=== PATIENT | male | born 1945 | race Hispanic/Latino ===

== ENCOUNTER 2016-10-12 13:59 | Inpatient (IN) | payer MEDICARE ==
[2016-10-12 14:00] VITALS: PULSE 75; BMI 22.0
[2016-10-12] MEDS ORDERED: Albuterol-Ipratrop 3 mg / 0.5 (3 ml) UD INH STA (14:17)
[2016-10-12 14:29] LABS: ABG ALLEN TEST YES; ARTERIAL BLOOD GAS HCO3 22.7 mmol/L (21-28); ARTERIAL BLOOD GAS PH 7.16 (7.35-7.45); ARTERIAL BLOOD GAS PO2 59 mm/Hg (80-100)
[2016-10-12] MEDS ORDERED: Ciprofloxacin 400mg/200ml D5W 200 ML IVPB STA (14:29)
[2016-10-12] MEDS ORDERED: Piperacillin/Tazobact 3.375 GM in Sodium Chloride 0.9% 100 ML IVPB STA (14:29)
[2016-10-12 14:37] LABS: BASO # 0.1 K/uL (0.0-0.2); BASO % 0.3 % (0.0-2.0); HEMATOCRIT 35.2 % (35.0-51.0); LYMPH # 0.8 K/uL (1.0-4.3); LYMPH % 4.3 % (20.0-40.0); MEAN CORPUSCULAR HEMOGLOBIN 29.3 pg (27.0-31.0); MEAN CORPUSCULAR HGB CONC 30.9 g/dL (33.0-37.0); MEAN PLATELET VOLUME 8.6 fl (7.2-11.7); MONO # 0.4 K/uL (0.0-0.8); NEUT # 16.7 K/uL (1.8-7.0); NEUT % 93.4 % (50.0-75.0); PLATELET COUNT 323 K/uL (130-400); RED CELL DISTRIBUTION WIDTH 17.9 % (11.5-14.5); WHITE BLOOD COUNT 17.9 K/uL (4.8-10.8)
[2016-10-12] MEDS ORDERED: Piperacillin/Tazobact 3.375 gm Inj IVPB ONE (14:42)
[2016-10-12] MEDS ORDERED: Vancomycin 1 g Inj ONE (14:42)
[2016-10-12 14:45] LABS: ALB/GLOB RATIO 0.9 (1.0-2.1); ALKALINE PHOSPHATASE 150 U/L (38-126); ALT/SGPT 42 U/L (21-72); AST/SGOT 51 U/L (17-59); BILIRUBIN,TOTAL 0.5 mg/dl (0.2-1.3); BLOOD UREA NITROGEN 41 mg/dl (9-20); CARBON DIOXIDE 26 mmol/L (22-30); CHLORIDE 105 mmol/L (98-107); GFR AFRICAN-AMERICAN > 60; GLUCOSE,RANDOM 123 mg/dL (75-110); MAGNESIUM 1.9 MG/DL (1.6-2.3); POTASSIUM 4.4 MMOL/L (3.6-5.0); SODIUM 143 mmol/l (132-148); TOTAL PROTEIN 6.9 G/DL (6.3-8.2)
--- NOTE | 2016-10-12 14:47 | ED PDOC ---
HPI: SOB/CHF/COPD <Mackenzie Mcclendon - Last Filed: 10/12/16 16:26> Chief Complaint (Provider): Respiratory distress History Per: EMS, Family History/Exam Limitations: no limitations Onset/Duration Of Symptoms: Hrs Current Symptoms Are (Timing): Still Present Severity: Severe Associated Symptoms: Fever Additional History Per: Family <Jose Cervantes - Last Filed: 10/12/16 17:15> Time Seen by Provider: 10/12/16 14:09 Chief Complaint (Nursing): Shortness Of Breath Additional Complaint(s): The pt is a 71yo male with PMHx of CHF, COPD and pneumonia, [facility] the ED from his [facility] for evaluation of respiratory distress. Pt is accompanied at bedside by his son who is the primary historian. Son reports pt has been at the [facility] since June 2016. Son reports the pt had pneumonia in the past and was admitted in this facility for care. Son reports the patient has been doing fairly well and was "okay"yesterday. He reports vitising the pt today for lunch when he noticed the pt was a little altered and was breathing heavily. He then called the ED to inform the pt would be brought here for evaluation. En route to the ED, the pt had O2 saturation of 82% and was given 2 trials of Duoneb after which his O2 levels juliet to 90%. Pt currently is responsive but lethargic, he is able to follow simple commands. Of note, pt has a feeding tube and has a history of foot infection for which he has been following up with Podiatry. At present, son offers no additional complaints on behalf of the pt. PMD: Dr. Smith (Jose Cervantes) Past Medical History <Mackenzie Mcclendon - Last Filed: 10/12/16 16:26> Reviewed: Historical Data, Nursing Documentation, Vital Signs - Medical History PMH: Anemia, Asthma, Atrial Fibrillation, Benign Prostatic Hyperplasia, Bronchitis, CAD, Cardia Arrhythmia, CHF, COPD, Diabetes (type II), Diverticulitis, Emphysema, HTN, Hypercholesterolemia, Peripheral Edema, Pneumonia Denies: Arthritis, HIV, Hypothyroidism, Chronic Kidney Disease, Rheumatoid Arthritis - Surgical History Surgical History: CABG (1994), Coronary Stent (2000), Hernia Repair () - Family History Family History: States: Unknown Family Hx - Living Arrangements Living Arrangements: [facility] - Immunization History Hx Tetanus Toxoid Vaccination: No Hx Influenza Vaccination: No Hx Pneumococcal Vaccination: No <Jose Cervantes - Last Filed: 10/12/16 17:15> Vital Signs: Last Vital Signs Temp 100.7 F H 10/12/16 14:45 Pulse 101 H 10/12/16 16:30 Resp 12 10/12/16 16:30 BP 113/69 10/12/16 16:30 Pulse Ox 92 L 10/12/16 15:53 - Home Medications Home Medications: Ambulatory Orders Medication Instructions Recorded Fluticasone Propionate [Flonase] 2 spr JAKUB DAILY PRN #0 bottle 03/03/16 Tiotropium [Spiriva] 18 mcg IH DAILY #0 cap 03/03/16 Gabapentin [Neurontin] 300 mg PO TID 07/04/16 Amiodarone [Cordarone] 200 mg PO DAILY tab 09/05/16 Aspirin [Aspirin Chewable] 81 mg PEG DAILY chew 09/05/16 Ipratropium 0.02% [Atrovent] 0.5 mg IH QID #90 neb 09/05/16 Levalbuterol HCl [Xopenex] 0.63 mg IH QID #90 vial.neb 09/05/16 Metoprolol Tartrate [Lopressor] 12.5 mg PO Q12 tab 09/05/16 traMADol [Ultram] 50 mg GT Q6 PRN #0 tab 09/05/16 Acetaminophen [Tylenol 325mg tab] 650 mg PO Q4H PRN 09/12/16 Montelukast [Singulair] 10 mg PO HS 09/12/16 Sodium Polystyrene Sulfonate 60 ml PO MWF 09/12/16 [Kayexalate] - Allergies Allergies/Adverse Reactions: Allergies Allergy/AdvReac Type Severity Reaction Status Date / Time gemfibrozil [From Lopid] Allergy RASH Verified 10/12/16 14:03 morphine Allergy SHORTNESS Verified 10/12/16 14:03 OF BREATH Review of Systems ROS Statement: Except As Marked, All Systems Reviewed And Found Negative Constitutional: Positive for: Fever Respiratory: Positive for: Shortness of Breath <Jose Cervantes - Last Filed: 10/12/16 17:15> Physical Exam - Reviewed Nursing Documentation Reviewed: Yes Vital Signs Reviewed: Yes - Physical Exam Appears: Positive for: Uncomfortable, In Acute Distress (respiratory ) Head Exam: Positive for: ATRAUMATIC, NORMAL INSPECTION, NORMOCEPHALIC Skin: Positive for: Normal Color Eye Exam: Positive for: Normal appearance Neck: Positive for: Normal Cardiovascular/Chest: Positive for: Tachycardia. Negative for: Murmur Respiratory: Positive for: Decreased Breath Sounds (bilateral ), Accessory Muscle Use, Rales (diffuse), Rhonchi (diffuse), Respiratory Distress (moderate ) , Other (retractions and shallow breathing noted) Gastrointestinal/Abdominal: Positive for: Normal Exam, Soft, Other (peg tube in place ). Negative for: Tenderness Male Genital Exam: Positive for: normal genitalia Back: Positive for: Other (redness to sacrum noted, no ulceration) Extremity: Positive for: Normal ROM, Capillary Refill (normal ), Other ( bandages to both feet noted). Negative for: Tenderness Neurologic/Psych: Positive for: Alert (lethargic, can perform simple task - squeeze hand, open eyes ) <Jose Cervantes A - Last Filed: 10/12/16 17:15> - Laboratory Results Result Diagrams: 10/12/16 14:26 10/12/16 14:26 <Mackenzie Mcclendon - Last Filed: 10/12/16 16:26> - Laboratory Results Result Diagrams: 10/12/16 14:26 10/12/16 14:26 - ECG ECG: Positive for: Interpreted By Me, Viewed By Me ECG Rhythm: Positive for: Sinus Tachycardia (113), Nonspecific Changes Interpretation Of Abn EKG: LVH O2 Sat by Pulse Oximetry: 92 Pulse Ox Interpretation: Abnormal - Radiology X-Ray: Interpreted by Me X-Ray Interpretation: Infiltrates (left ), Other (congestion consistent with HF) - Critical Care Total Time (In Min): 60 Documented Critical Care: Time excludes all time spent performint seperately billable procedures <Jose Cervantes - Last Filed: 10/12/16 17:15> Nebulizer Treatments/Peak Flow - Duonebs Number of Bronchodilator Doses given?: 2 - Steroid Treatment Steroid: IV - Clinical Response Clinical Response: Unchanged <Jose Cervantes - Last Filed: 03/26/17 17:15> Medical Decision Making <Mackenzie Mcclendon - Last Filed: 10/12/16 16:26> <Jose Cervantes - Last Filed: 10/12/16 17:15> Medical Decision Making: Time: 1409 Impression: Respiratory distress r/o CHF Plan: -- Stat ABG done, CO2 levels of 77, pH of 7.16, lactic acid levels of 1.3. Pt has a temperature of 100.7 degrees. CXR reviewed- Lasix 80 IV fully ordered, pt placed on BIPAP. Started pt on Zosyn , vanco, and cipro for health care acquired pneumonia Dr. Mcclendon at bedside for evaluation, agrees with current plan. Labs reviewed with elevated WBC count, BNP 23K, potassium normal, trop negative , LA wnl 1540 Pt still struggling to breathe, decision was made for intubation. Pt given 20mg IV of Etomidate, intubated with 7.5 ET tube, 23 at the lip. XR ordered for confirmation. Propofol drip started, soft restraints placed. Scribe Attestation: Documented by Caroline Molina acting as a scribe for JOSELUIS Lopez Provider Scribe Attestation: All medical record entries made by the Scribe were at my direction and personally dictated by me. I have reviewed the chart and agree that the record accurately reflects my personal performance of the history, physical exam, medical decision making, and the department course for this patient. I have also personally directed, reviewed, and agree with the discharge instructions and disposition. Case was discussed with Dr. Dial who saw patient at bedside case discussed with Dr. Armstrong ICU, saw patient at time of admission Case discussed with Dr. Stephens, he also spoke with Dr. Armstrong at time of admission CXR: ET tube above jung good position repeat ABG- PH 7.32; CO2 47; LA 1.7; K 4.2 (Jose Cervantes) Disposition <Mackenzie Mcclendon - Last Filed: 10/12/16 16:26> - Patient ED Disposition Is Patient to be Admitted: Yes Counseled Patient/Family Regarding: Studies Performed, Diagnosis - Disposition Disposition Time: 15:50 <Jose Cervantes - Last Filed: 10/12/16 17:15> - Clinical Impression Clinical Impression: CHF (congestive heart failure), Pneumonia, COPD (chronic obstructive pulmonary disease), Respiratory failure with hypercapnia, Sepsis - Disposition Condition: CRITICAL Additional Comments <Mackenzie Mcclendon A - Last Filed: 10/12/16 16:26> <Jose Cervantes A - Last Filed: 10/12/16 17:15> - Additional Comments Additional Comments: Patient is here with acute respiratory failure that required BiPAP and intubation. Intubation performed by me, see procedure note. Critical care 60 minutes. PMD Kirby is primary for admission. Admitted to ICU under Dr. Armstrong. Intubation performed by me. See procedure note. (Mackenzie Mcclendon) PROCEDURES - Intubation Intubation Required: Yes Time Out Performed: Yes Sedative: Etomidate Paralytic: Succinylholine Laryngoscope: Fiber Optic Video Scope ET Tube Size: 7.5 ET Tube Uncuffed: No ET Tube Secured at Depth: 23 ET Tube Secured Locarion: Teeth ET Tube Placement Confirmation: Visualized Passing Through Cords, Breath Sounds Equal Bilaterally, No Breath Sounds Over Epigastrum, Confirmation w/Capnometry Patient Tolorated Procedure: Well Procedure Complications: None <Mackenzie Mcclendon A - Last Filed: 10/12/16 16:26>
[2016-10-12 14:53] LABS: PARTIAL THROMBOPLASTIN TIME 31.1 SECONDS (23.3-32.5)
[2016-10-12] MEDS ORDERED: Etomidate 20 mg/10ml Inj IV ONE ×2 (15:20→15:49)
[2016-10-12] MEDS ORDERED: Succinylcholine 200 mg/10 ml Inj IV ONE ×2 (15:23→15:49)
[2016-10-12] MEDS ORDERED: Propofol 10 mg/ml Inj (20 ML) ONE (15:26)
[2016-10-12 16:01] LABS: RBC URINE 1 /hpf (0-3); URINE BILIRUBIN NEGATIVE (NEGATIVE); URINE BLOOD NEGATIVE (NEGATIVE); URINE COLOR YELLOW (YELLOW); URINE GLUCOSE (UA) NEG (Normal); URINE KETONE NEGATIVE (NEGATIVE); URINE PROTEIN 30 mg/dL (NEGATIVE); URINE UROBILINOGEN 0.2-1.0 mg/dL (0.2-1.0); WBC URINE 1 /hpf (0-5)
[2016-10-12 16:16] LABS: URINE LEUKOCYTE ESTERASE NEGATIVE Leu/uL (Negative)
[2016-10-12 16:29] LABS: ABG ALLEN TEST YES; ABG MECHANICAL RATE 12; ARTERIAL BLOOD GAS HCO3 23.3 mmol/L (21-28); ARTERIAL BLOOD GAS MODE PRVC/AC; ARTERIAL BLOOD GAS O2 CAPACITY 13.4 mL/dL (16-24); ARTERIAL BLOOD GAS PH 7.32 (7.35-7.45); ARTERIAL BLOOD GAS PO2 58 mm/Hg (80-100); ARTERIAL BLOOD HGB O2 SAT 91.4 % (95.0-98.0); CARBOXYHEMOGLOBIN 3.3 % (0.5-1.5); HHB 3.1 % (0.0-5.0); METHEMOGLOBIN 2.2 % (0.0-3.0)
--- NOTE | 2016-10-12 16:44 | CP.CCUPN ---
CCU Subjective - Physician Review Subjective (Free Text): TRAIN ENGINEER PROGRESS NOTE Patient examined, interim events reviewed: Discussed with Pop WALKER, and further history obtained from Son at the bedside- 71M , well known to ICU team from previous long course in ICU for Post-Lucretia Arrest mgmt, Ventilatory failure, Cardiomyopathy, and generalized debilitation. He was transferred from [place] today after exhibiting sleepiness and AMS beginning last evening according to son, which worsened this AM with excessive sleepiness while sitting up in bed, vomited x 1, denied any CP, headaches or focal weakness , but also was progressively dyspneic and tachypneic despite multiple neb treatments given in the NH, exhibited audible rhonchi and transferred to ER where he was subsequently placed on BiPAP and advanced to MV support for increased work of breathing. Presently sedated on Propofol 5 mcg/kg/min, lifting head off the bed at times, not following commands, moving all extremities spontaneously. Son states he had been fed via PEG and eating PO as well. Able to self ambulate approx 100feet, using the urinal and was engaging in normal conversations prior to changes in mental status. Breathing 20 in AC 12 , TV 500ml, PEEP 5 and 60% oxygen with 95% SPO2, PAP 22, Ve= 12.6, afebrile, BRIANA 150/80, HR 88. Polanco placed with approx 300 ml clear light yellow urine after Lasix 40mg IVP. Allergies; Morphine, Gemfibrozil PMH: COPD, Cardiomyopathy with 30% EF, Left PTX, CAD/ AWMI with CABG, Cardiac Arrest /VT/ Paroxysmal A Fib, E.Coli Pneumonia last admission into ICU. [place] Meds: Gabapentin, Singulair, albuterol/Atrovent, Spiriva, Flonase, Cordarone , Lopressor ASA ROS: All pertinent Nursing notes and all other 10+ systems reviewed: patient unable to answer questions, otherwise as above as answered by son. PMSFH: No other new pertinent information relative to current medical problems noted. No other distress noted: EXAM- HEENT: no icterus, pupils midline, equal and reactive, no nystagmus, NECK: no visible JVD, supple, carotids equal upstroke bilat/no bruits CHEST: decreased BS bases, no wheezes audible. HEART: regular, distant, S1S2, no murmur audible, no rubs. ABD: soft, flat, PEG intact, no increased distention, no focal tenderness, no HSM. BS hypoactive. EXT: trace LE edema, no peripheral/ digital cyanosis, no calf tenderness or palpable cords, distal pulses intact and symmetrical NEURO: +tone, no gross focal deficits SKIN: no rashes, no eccyhmosis, bilateral heel ulcers, sacral area unable to be assessed at this time. LABS: 7.16/77/59, Lactate = 1.3 WBC= 17.9 HGB= 10.9 PLTs = 323K Coags; PT/INR= 12.2/1.17; PTT= 31.1 Na= 143 K= 4.4 HCO3= 26 BUN/Cr= 41/1.3 BS= 123 Alk Phos =150 Trop #1 negative CXR: increased bilateral and bibasilar interstitial marking as compared to film. No PTX. EKG: pending Assessment: 1. Acute Hypercapneic and Hypoxemic resp failure 2 CHF, r/o RLL Pneumonia (? Aspiration event post emesis this AM) 2. r/o Acute / SubAcute OR 3. Azotemia / Dehydration, r/o CKD II-III 4. Chronic disease Anemia 5. Paroxysmal A fib / Cardiomyopathy 6. COPD PLAN: 1. MV support, try decreasing FiO2, repeat ABG. No wheezing now, steroid bolus given in ER, will continue with DuoNebs for now. 2. Sputum Cx, blood cx, empiric abx coverage started with Zosyn/ Vanco/ Cipro. Check Influenza A/B 3. Serial Trops. 4. Sedation Vacation to assess for any need for CT Brain if mental status does not improve after hypercapnia resolves or improves. 5. Lasix prn 6. PEG Feeds 7. No Advance Directives; remains Full Code status. 8. Son requests admission under Dr. Smith and evals by Kat Monahan.
--- NOTE | 2016-10-12 18:29 | CP.PCM.PN ---
Subjective - Date & Time of Evaluation Date of Evaluation: 10/12/16 Time of Evaluation: 22:22 - Subjective Subjective: 71 yo admitted from [place] in acute respiratory distress. Pt intubated in the ER Pt has a hx of COPD Heart dx was recently hospitalized for prolonged stay in the ICU (s/p defibrillation for V-fib x 2) Objective - Vital Signs/Intake and Output Vital Signs (last 24 hours): Temp Pulse Resp BP Pulse Ox 100.7 F H 101 H 12 113/69 92 L 10/12/16 14:45 10/12/16 17:11 10/12/16 17:11 10/12/16 17:11 10/12/16 17:15 - Medications Medications: Current Medications Albuterol/Ipratropium (Duoneb 3 Mg/0.5 Mg (3 Ml) Ud) 3 ml INH RQID [facility] Amiodarone HCl (Cordarone) 200 mg PO DAILY [facility] Aspirin (Aspirin Chewable) 81 mg PEG DAILY [facility] Enoxaparin Sodium (Lovenox) 40 mg SC DAILY [facility] PRN Reason: Protocol Furosemide (Lasix) 40 mg IV DAILY [facility] Stop: 10/13/16 09:01 Propofol (Diprivan) 100 mls @ 1.851 mls/hr IV .Q24H [facility]; 5 MCG/KG/MIN PRN Reason: Protocol Stop: 10/13/16 16:01 Last Admin: 10/12/16 15:45 Dose: 1.851 mls/hr Ciprofloxacin (Cipro 400mg/200ml Dsw) 200 mls @ 200 mls/hr IVPB Q12 [facility] Vancomycin HCl 500 mg/ Sodium (Chloride) 100 mls @ 100 mls/hr IVPB Q12 [facility] Piperacillin Sod/Tazobactam (Sod 2.25 gm/ Sodium Chloride) 100 mls @ 100 mls/ hr IVPB Q6 [facility] Metoprolol Tartrate (Lopressor) 12.5 mg GT Q12 [facility] Pantoprazole Sodium (Protonix Inj) 40 mg IVP DAILY [facility] - Labs Labs: PT 12.2 SECONDS (9.6-11.2) H 10/12/16 14:26 INR 1.17 (0.92-1.08) H 10/12/16 14:26 APTT 31.1 SECONDS (23.3-32.5) 03/26/17 14:26 - Respiratory Exam Respiratory Exam: Respiratory Distress - Cardiovascular Exam Cardiovascular Exam: Irregular Rhythm - GI/Abdominal Exam GI & Abdominal Exam: Normal Bowel Sounds Assessment and Plan - Assessment and Plan (Free Text) Assessment: Acute Respiratory Failure Aspiration?? COPD S/P Klebsiella RLL Pneumonia? S/P L pneumothorax Intubated ABX ICU Pulmonary S/P V-fib/ V-tach 2 to pulmonary dx A-fib CAD S/P CABG Amiodorone Cardiology Hyperkalemia etiol ?? s/p SMITA/ CKD Nephrology Cortisol level ?? Chronic chest wall pain Hx Dec oral intake swallowing?? PEG Jevity and oral feedings s/p + C-diff + Ag -toxin
[2016-10-12 19:01] LABS: ABG ALLEN TEST YES; ABG MECHANICAL RATE 12; ARTERIAL BLOOD GAS HCO3 23.5 mmol/L (21-28); ARTERIAL BLOOD GAS MODE A/C; ARTERIAL BLOOD GAS O2 CAPACITY 12.9 mL/dL (16-24); ARTERIAL BLOOD GAS O2 CONTENT 12.6 ML/dL (15-23); ARTERIAL BLOOD GAS PH 7.38 (7.35-7.45); ARTERIAL BLOOD GAS PO2 75 mm/Hg (80-100); ARTERIAL BLOOD HGB O2 SAT 94.9 % (95.0-98.0); ATERIAL BLOOD GAS PEEP 5; CARBOXYHEMOGLOBIN 1.8 % (0.5-1.5); HHB 2.3 % (0.0-5.0); METHEMOGLOBIN 0.9 % (0.0-3.0)
[2016-10-12] MEDS: Albuterol-Ipratrop 3 mg / 0.5 (3 ml) UD INH SCH (19:19)
[2016-10-12 21:02] LABS: TOTAL CELLS COUNTED 100
[2016-10-12 21:08] LABS: EOSINOPHIL 1 % (0-7); NEUTROPHIL 70 % (42-75)
[2016-10-12] MEDS: Ciprofloxacin 400mg/200ml D5W 200 ML IVPB SCH (22:39)
[2016-10-13] MEDS: Enoxaparin 40 mg Syringe SC SCH ×2 (00:19→08:44)
[2016-10-13 05:03] LABS: ABG ALLEN TEST YES; ABG MECHANICAL RATE 12; ARTERIAL BLOOD GAS HCO3 24.1 mmol/L (21-28); ARTERIAL BLOOD GAS MODE A/C; ARTERIAL BLOOD GAS PO2 122 mm/Hg (80-100); ATERIAL BLOOD GAS PEEP 5
[2016-10-13 05:47] LABS: BASO % 0.1 % (0.0-2.0); HEMATOCRIT 30.3 % (35.0-51.0); LYMPH # 0.6 K/uL (1.0-4.3); MEAN CELL VOLUME 92.8 fl (80.0-94.0); MEAN CORPUSCULAR HGB CONC 31.2 g/dL (33.0-37.0); MEAN PLATELET VOLUME 9.3 fl (7.2-11.7); MONO # 0.8 K/uL (0.0-0.8); MONO % 2.9 % (0.0-10.0); NEUT # 27.4 K/uL (1.8-7.0); RED CELL DISTRIBUTION WIDTH 18.2 % (11.5-14.5); WHITE BLOOD COUNT 28.8 K/uL (4.8-10.8)
[2016-10-13 05:54] LABS: ALB/GLOB RATIO 0.9 (1.0-2.1); BILIRUBIN,TOTAL 0.7 mg/dl (0.2-1.3); CALCIUM 8.7 mg/dL (8.4-10.2); POTASSIUM 4.5 MMOL/L (3.6-5.0)
[2016-10-13] MEDS: Albuterol-Ipratrop 3 mg / 0.5 (3 ml) UD INH SCH ×2 (08:58→19:15)
--- NOTE | 2016-10-13 09:22 | RAD ---
HISTORY: intubated COMPARISON: 10/12/2016 FINDINGS: The endotracheal tube terminates 3.8 cm proximal to the jung. LUNGS: There is interval worsening of patchy airspace disease in the left lung and persistent patchy airspace disease in the right lower lobe. PLEURA: No significant pleural effusion identified, no pneumothorax apparent. CARDIOVASCULAR: The cardiomediastinal silhouette is stable. Status post CABG. OSSEOUS STRUCTURES: Within normal limits for the patient's age. VISUALIZED UPPER ABDOMEN: Normal. OTHER FINDINGS: None. IMPRESSION: Worsening multifocal left upper lobe pneumonia and persistent left lower lobe and right lower lobe pneumonia
--- NOTE | 2016-10-13 09:47 | CP.PCM.CON ---
History of Present Illness - History of Present Illness History of Present Illness: This 71 year old male was recently discharged after a prolonged hospital stay because pf pneumonia with sepsis and cardiac arrhythmia. He had been in [facility] and apparently doing well. There was a change in mental status and shortness of breath which prompted transfer to the ER where he was found to have pneumonia and hypercapnic ventilatory failure. An initial attempt to use NIPPV failed and he was orally intubated and placed on mechanical ventilation. He had a PEG tube inserted on the June admission which is still in use, and he has been eating PO as well. During that June admission he also developed a parapneumonic pleual effusion which was tapped. He had been followed as an outpatient for the last 2-3 years because of a pulmonary nodule in the left lower lobe and a nodular infiltrate in the medial basal segment of the left lower lobe which occurred secondary to an abdominal surgical procedure. He does have a long and complicated past medical history which includes coronary artery bypass grafting in 1994 also had percutaneous transluminal coronary angioplasty in 2000 and a repeat angiogram in 2001. He has long-standing history of diabetes mellitus as well as hypertension and iron deficiency anemia which was thought to be related to prior subtotal gastrectomy for peptic ulcer disease. He also has a history of hyperlipidemia as well as chronic obstructive pulmonary disease. Past Patient History - Infectious Disease Hx of Infectious Diseases: None - Tetanus Immunizations Tetanus Immunization: Unknown - Past Medical History & Family History Past Medical History?: Yes - Past Social History Smoking Status: Former Smoker Chewing Tobacco Use: No Cigar Use: No Alcohol: None Drugs: Denies Home Situation {Lives}: Alone - CARDIAC Hx Atrial Fibrillation: Yes Hx Cardia Arrhythmia: Yes Hx Congestive Heart Failure: Yes Hx Hypercholesterolemia: Yes Hx Hypertension: Yes Hx Peripheral Edema: Yes - PULMONARY Hx Asthma: Yes Hx Bronchitis: Yes Hx Chronic Obstructive Pulmonary Disease (COPD): Yes Hx Emphysema: Yes Hx Pneumonia: Yes - NEUROLOGICAL Hx Neurological Disorder: No - HEENT Hx Cataracts: Yes (right eye) - RENAL Hx Chronic Kidney Disease: No - ENDOCRINE/METABOLIC Hx Diabetes Mellitus Type 2: Yes Hx Hypothyroidism: No - HEMATOLOGICAL/ONCOLOGICAL Hx Anemia: Yes Hx Human Immunodeficiency Virus (HIV): No - INTEGUMENTARY Hx Psoriasis: Yes - MUSCULOSKELETAL/RHEUMATOLOGICAL Hx Falls: No - GASTROINTESTINAL Hx Diverticulitis: Yes - GENITOURINARY/GYNECOLOGICAL Hx Prostate Problems: Yes - PSYCHIATRIC Hx Substance Use: No - SURGICAL HISTORY Hx Coronary Artery Bypass Graft: Yes (1994) Hx Coronary Stent: Yes (2000) Other/Comment: SUB-TOTAL GASTRECTOMY FOR PUD WITH VENTRAL HERNIA REPAIRS SUBSEQUENTLY - ANESTHESIA Hx Anesthesia: Yes Hx Anesthesia Reactions: No Hx Malignant Hyperthermia: No Meds Allergies/Adverse Reactions: Allergies Allergy/AdvReac Type Severity Reaction Status Date / Time gemfibrozil [From Lopid] Allergy RASH Verified 10/12/16 14:03 morphine Allergy SHORTNESS Verified 10/12/16 14:03 OF BREATH - Medications Medications: Current Medications Albuterol/Ipratropium (Duoneb 3 Mg/0.5 Mg (3 Ml) Ud) 3 ml INH RQ6 [facility] Amiodarone HCl (Cordarone) 200 mg PO DAILY [facility] Last Admin: 10/12/16 19:00 Dose: Not Given Aspirin (Aspirin Chewable) 81 mg PEG DAILY [facility] Last Admin: 10/13/16 08:45 Dose: 81 mg Enoxaparin Sodium (Lovenox) 40 mg SC DAILY [facility] PRN Reason: Protocol Last Admin: 10/13/16 08:44 Dose: 40 mg Propofol (Diprivan) 100 mls @ 1.851 mls/hr IV .Q24H [facility]; 5 MCG/KG/MIN PRN Reason: Protocol Stop: 10/13/16 16:01 Last Titration: 10/13/16 06:50 Dose: 5 mcg/kg/min Ciprofloxacin (Cipro 400mg/200ml Dsw) 200 mls @ 200 mls/hr IVPB Q12 [facility] Last Admin: 10/12/16 22:39 Dose: 200 mls/hr Vancomycin HCl 500 mg/ Sodium (Chloride) 100 mls @ 100 mls/hr IVPB Q12 [facility] Last Admin: 10/13/16 08:46 Dose: 100 mls/hr Piperacillin Sod/Tazobactam (Sod 2.25 gm/ Sodium Chloride) 100 mls @ 100 mls/ hr IVPB Q6 [facility] Last Admin: 10/13/16 03:52 Dose: 100 mls/hr Methylprednisolone 30 mg/ (Sodium Chloride) 50 mls @ 100 mls/hr IVPB Q8 [facility] Metoprolol Tartrate (Lopressor) 12.5 mg GT Q12 [facility] Last Admin: 10/12/16 19:00 Dose: Not Given Pantoprazole Sodium (Protonix Inj) 40 mg IVP DAILY [facility] Last Admin: 10/13/16 08:44 Dose: 40 mg Physical Exam - Additional Findings Additional findings: Chronically ill appearing male, orally intubated and mechanically ventilated, sedated. No cyanosis or dependant edema. No palpable lymphadenopathy. Conjunctivae pink and non-icteric. Nasal passages patent w/o bleeding or exudate. Neck is supple and trachea midline, no visible JVD. No dullness on percussion of the anterior chest wall. No subcutaneous emphysema palpated. Breath sounds are present bilaterally, diminished. Coarse sonorous rhonchi are heard bilaterally in lower lobes. Prolonged E phase with few medium wheezes bilaterally. Medium rales present in dependant zones of both lower lobes. PEG tube in place, abdomen is soft. Results - Vital Signs Recent Vital Signs: Last Vital Signs Temp 97.8 F 10/13/16 08:00 Pulse 86 10/13/16 09:00 Resp 26 H 10/13/16 09:00 BP 100/53 L 10/13/16 09:00 Pulse Ox 100 10/13/16 09:00 - Labs Result Diagrams: 10/14/16 04:35 10/14/16 04:35 Labs: Laboratory Results - last 24 hr 10/12/16 10/12/16 10/12/16 16:28 18:54 19:00 WBC RBC Hgb Hct MCV MCH MCHC RDW Plt Count MPV Neut % (Auto) Lymph % (Auto) [place] % (Auto) Eos % (Auto) Baso % (Auto) Neut # Lymph # [place] # Eos # Baso # pCO2 47 H 39 pO2 58 L 75 L HCO3 23.3 23.5 ABG pH 7.32 L 7.38 ABG Total CO2 25.6 24.3 ABG O2 Saturation 96.7 97.6 ABG O2 Content 13.0 L 12.6 L ABG Base Excess -2.0 -1.8 ABG Hemoglobin 10.1 L 9.4 L ABG Carboxyhemoglobin 3.3 H 1.8 H POC ABG HHb (Measured) 3.1 2.3 ABG Methemoglobin 2.2 0.9 ABG O2 Capacity 13.4 L 12.9 L Emmanuel Test Yes Yes ABG Potassium A-a O2 Difference 311.0 304.0 Hgb O2 Saturation 91.4 L 94.9 L Glucose Lactate Vent Mode Prvc/ac A/c Mechanical Rate 12 12 FiO2 60.0 60.0 Tidal Volume 500 450 PEEP 5 Sodium Potassium Chloride Carbon Dioxide Anion Gap BUN Creatinine Est GFR ( Amer) Est GFR (Non-Af Amer) POC Glucose (mg/dL) Random Glucose Lactic Acid Calcium Total Bilirubin AST ALT Alkaline Phosphatase Troponin I 0.0680 Total Protein Albumin Globulin Albumin/Globulin Ratio Arterial Blood Potassium Influenza Typ A,B (EIA) 10/12/16 10/13/16 10/13/16 19:04 01:00 04:40 WBC 28.8 H D RBC 3.26 L Hgb 9.5 L Hct 30.3 L MCV 92.8 D MCH 29.0 MCHC 31.2 L RDW 18.2 H Plt Count 222 D MPV 9.3 Neut % (Auto) 95.0 H Lymph % (Auto) 2.0 L [place] % (Auto) 2.9 Eos % (Auto) 0.0 Baso % (Auto) 0.1 Neut # 27.4 H Lymph # 0.6 L [place] # 0.8 Eos # 0.0 Baso # 0.0 pCO2 pO2 HCO3 ABG pH ABG Total CO2 ABG O2 Saturation ABG O2 Content ABG Base Excess ABG Hemoglobin ABG Carboxyhemoglobin POC ABG HHb (Measured) ABG Methemoglobin ABG O2 Capacity Emmanuel Test ABG Potassium A-a O2 Difference Hgb O2 Saturation Glucose Lactate Vent Mode Mechanical Rate FiO2 Tidal Volume PEEP Sodium 143 Potassium 4.5 Chloride 104 Carbon Dioxide 21 L Anion Gap 23 H BUN 50 H Creatinine 1.6 H Est GFR ( Amer) 52 Est GFR (Non-Af Amer) 43 POC Glucose (mg/dL) Random Glucose 179 H Lactic Acid 2.0 Calcium 8.7 Total Bilirubin 0.7 AST 32 ALT 34 Alkaline Phosphatase 92 Troponin I 0.0880 Total Protein 6.0 L Albumin 2.8 L Globulin 3.2 Albumin/Globulin Ratio 0.9 L Arterial Blood Potassium Influenza Typ A,B (EIA) Negative for flu a/b 10/13/16 10/13/16 05:00 06:21 WBC RBC Hgb Hct MCV MCH MCHC RDW Plt Count MPV Neut % (Auto) Lymph % (Auto) [place] % (Auto) Eos % (Auto) Baso % (Auto) Neut # Lymph # [place] # Eos # Baso # pCO2 38 pO2 122 H HCO3 24.1 ABG pH 7.40 ABG Total CO2 24.7 ABG O2 Saturation 99.8 H ABG O2 Content ABG Base Excess -1.1 ABG Hemoglobin ABG Carboxyhemoglobin POC ABG HHb (Measured) ABG Methemoglobin ABG O2 Capacity Emmanuel Test Yes ABG Potassium 4.5 A-a O2 Difference 258.0 Hgb O2 Saturation Glucose 195 H Lactate 2.0 Vent Mode A/c Mechanical Rate 12 FiO2 60.0 Tidal Volume 450 PEEP 5 Sodium 135.0 Potassium Chloride 106.0 Carbon Dioxide Anion Gap BUN Creatinine Est GFR ( Amer) Est GFR (Non-Af Amer) POC Glucose (mg/dL) 182 H Random Glucose Lactic Acid Calcium Total Bilirubin AST ALT Alkaline Phosphatase Troponin I Total Protein Albumin Globulin Albumin/Globulin Ratio Arterial Blood Potassium 4.5 Influenza Typ A,B (EIA) Assessment & Plan (1) Pneumonia Status: Acute Priority: High (2) Sepsis Status: Acute Priority: High (3) Respiratory failure with hypercapnia Status: Acute Priority: High (4) COPD (chronic obstructive pulmonary disease) Status: Chronic Priority: High - Assessment and Plan (Free Text) Plan: Agree with current regimen covering for HCAP. Appears as though he is stronger than on previous admission and may be able to wean more quickly. Continue aerosol therapies, closely monitoring for cardiac arrhythmia. Reduce parenteral corticosteroids quickly. - Date & Time Date: 10/13/16 Time: 09:46
[2016-10-13 10:25] LABS: ABG ALLEN TEST YES; ARTERIAL BLOOD GAS HCO3 24.7 mmol/L (21-28); ARTERIAL BLOOD GAS O2 CAPACITY 12.5 mL/dL (16-24); ARTERIAL BLOOD GAS O2 CONTENT 12.5 ML/dL (15-23); ARTERIAL BLOOD GAS PH 7.42 (7.35-7.45); ARTERIAL BLOOD GAS PO2 131 mm/Hg (80-100); ARTERIAL BLOOD HGB O2 SAT 96.8 % (95.0-98.0); ATERIAL BLOOD GAS PEEP 5; CARBOXYHEMOGLOBIN 1.7 % (0.5-1.5); HHB 0.1 % (0.0-5.0); METHEMOGLOBIN 1.4 % (0.0-3.0)
[2016-10-13] MEDS: methylPREDNISolone 30 MG in Sodium Chloride 0.9% 50 ML IVPB SCH ×2 (10:41→17:31)
[2016-10-13] MEDS: Ciprofloxacin 400mg/200ml D5W 200 ML IVPB SCH ×2 (10:41→21:07)
--- NOTE | 2016-10-13 13:49 | CP.PCM.CON ---
History of Present Illness - History of Present Illness History of Present Illness: THE PATIENT IS A 71 YEAR OLD MALE KNOWN TO ME FROM [facility] ADMISSIONS. HE HAS A HISTORY OF CAD WITH AN OLD ID AND CABGS WITH A LVEF OF ~ 30%, RECURRENT SYSTOLIC AND DIASTOLIC CHF, S/P ATRIAL FIBRILLATION, HYPERTENSION, COPD WITH RECURRENT PNEUMONIA. HE WAS [place] THE [place] AND HAD SOB THAT DID NOT IMPROVE WITH NEBULIZER TREATMENTS AND WAS BROUGHT TO THE ER AND FOUND TO HAVE PNEUMONIA WITH HYPERCAPNIC RESPIRATORY FAILURE AND WAS PLACED ON MV, GIVEN IV ANTIBIOTICS AND ADMITTED TO THE ICU. THE PATIENT DID NOT HAVE ANY TYPICAL CHEST PAIN. CARDIOLOGY WAS ASKED TO SEE HIM. Past Patient History - Infectious Disease Hx of Infectious Diseases: None - Tetanus Immunizations Tetanus Immunization: Unknown - Past Medical History & Family History Past Medical History?: Yes - Past Social History Smoking Status: Never Smoked - CARDIAC Hx Atrial Fibrillation: Yes Hx Cardia Arrhythmia: Yes Hx Congestive Heart Failure: Yes Hx Hypercholesterolemia: Yes Hx Hypertension: Yes Hx Peripheral Edema: Yes - PULMONARY Hx Asthma: Yes Hx Bronchitis: Yes Hx Chronic Obstructive Pulmonary Disease (COPD): Yes Hx Emphysema: Yes Hx Pneumonia: Yes - NEUROLOGICAL Hx Neurological Disorder: No - HEENT Hx HEENT Problems: No - RENAL Hx Chronic Kidney Disease: No - ENDOCRINE/METABOLIC Hx Hypothyroidism: No - HEMATOLOGICAL/ONCOLOGICAL Hx Anemia: Yes Hx Human Immunodeficiency Virus (HIV): No - INTEGUMENTARY Hx Dermatological Problems: No - MUSCULOSKELETAL/RHEUMATOLOGICAL Hx Falls: No - GASTROINTESTINAL Hx Diverticulitis: Yes - GENITOURINARY/GYNECOLOGICAL Hx Genitourinary Disorders: Yes (BPH) - PSYCHIATRIC Hx Substance Use: No - SURGICAL HISTORY Hx Coronary Artery Bypass Graft: Yes (1994) Hx Coronary Stent: Yes (2000) - ANESTHESIA Hx Anesthesia: Yes Hx Anesthesia Reactions: No Hx Malignant Hyperthermia: No Meds Allergies/Adverse Reactions: Allergies Allergy/AdvReac Type Severity Reaction Status Date / Time gemfibrozil [From Lopid] Allergy RASH Verified 10/12/16 14:03 morphine Allergy SHORTNESS Verified 10/12/16 14:03 OF BREATH - Medications Medications: Current Medications Albuterol/Ipratropium (Duoneb 3 Mg/0.5 Mg (3 Ml) Ud) 3 ml INH RQ6 [facility] Amiodarone HCl (Cordarone) 200 mg PO DAILY [facility] Last Admin: 10/13/16 11:46 Dose: 200 mg Aspirin (Aspirin Chewable) 81 mg PEG DAILY [facility] Last Admin: 10/13/16 08:45 Dose: 81 mg Enoxaparin Sodium (Lovenox) 40 mg SC DAILY [facility] PRN Reason: Protocol Last Admin: 10/13/16 08:44 Dose: 40 mg Propofol (Diprivan) 100 mls @ 1.851 mls/hr IV .Q24H [facility]; 5 MCG/KG/MIN PRN Reason: Protocol Stop: 10/13/16 16:01 Last Titration: 10/13/16 06:50 Dose: 5 mcg/kg/min Ciprofloxacin (Cipro 400mg/200ml Dsw) 200 mls @ 200 mls/hr IVPB Q12 [facility] Last Admin: 10/13/16 10:41 Dose: 200 mls/hr Vancomycin HCl 500 mg/ Sodium (Chloride) 100 mls @ 100 mls/hr IVPB Q12 [facility] Last Admin: 10/13/16 08:46 Dose: 100 mls/hr Piperacillin Sod/Tazobactam (Sod 2.25 gm/ Sodium Chloride) 100 mls @ 100 mls/ hr IVPB Q6 [facility] Last Admin: 10/13/16 10:42 Dose: 100 mls/hr Methylprednisolone 30 mg/ (Sodium Chloride) 50 mls @ 100 mls/hr IVPB Q8 [facility] Last Admin: 10/13/16 10:41 Dose: 100 mls/hr Metoprolol Tartrate (Lopressor) 12.5 mg GT Q12 [facility] Last Admin: 10/13/16 11:46 Dose: 12.5 mg Pantoprazole Sodium (Protonix Inj) 40 mg IVP DAILY [facility] Last Admin: 10/13/16 08:44 Dose: 40 mg Physical Exam - Respiratory Exam Respiratory Exam: Rales - Cardiovascular Exam Cardiovascular Exam: REGULAR RHYTHM, +S1, +S2 (CHRONIC LE EDEMA) - Extremities Exam Additional comments: LE EDEMA(CHRONIC) - Additional Findings Additional findings: TROPONON NEGATIVE X 2 WBC 28K CXR WITH PNEUMONIA PROBNP WITH PNEUMONIA RECENT ECHO WITH LVEF OF ~ 30% Results - Vital Signs Recent Vital Signs: Last Vital Signs Temp 97.8 F 10/13/16 08:00 Pulse 86 10/13/16 09:00 Resp 26 H 10/13/16 09:00 BP 104/57 L 10/13/16 10:42 Pulse Ox 100 10/13/16 09:00 - Labs Result Diagrams: 10/13/16 04:40 10/13/16 04:40 Labs: Laboratory Results - last 24 hr 10/12/16 10/12/16 10/12/16 16:28 18:54 19:00 WBC RBC Hgb Hct MCV MCH MCHC RDW Plt Count MPV Neut % (Auto) Lymph % (Auto) [place] % (Auto) Eos % (Auto) Baso % (Auto) Neut # Lymph # [place] # Eos # Baso # Total Counted Neutrophils % (Manual) Band Neutrophils % Lymphocytes % (Manual) Reactive Lymphs % Monocytes % (Manual) Eosinophils % (Manual) Basophils % (Manual) Metamyelocytes % Myelocytes % Promyelocytes % Blast Cells % Plasma Cell % (Manual) Nucleated RBC % Hypersegmented Polys Smudge Cells Toxic Granulation Dohle Bodies Skinny Rods Platelet Estimate Plt Clumps, EDTA Large Platelets Giant Platelets RBC Morphology Polychromasia Hypochromasia (manual) Poikilocytosis (manual Basophilic Stippling Anisocytosis (manual) Microcytosis (manual) Macrocytosis (manual) Spherocytes Sickle Cells Target Cells Tear Drop Cells Ovalocytes Stomatocytes Helmet Cells Mason-Trimble Bodies Stephen Cells Acanthocytes (Spur) Rouleaux Schistocytes pCO2 47 H 39 pO2 58 L 75 L HCO3 23.3 23.5 ABG pH 7.32 L 7.38 ABG Total CO2 25.6 24.3 ABG O2 Saturation 96.7 97.6 ABG O2 Content 13.0 L 12.6 L ABG Base Excess -2.0 -1.8 ABG Hemoglobin 10.1 L 9.4 L ABG Carboxyhemoglobin 3.3 H 1.8 H POC ABG HHb (Measured) 3.1 2.3 ABG Methemoglobin 2.2 0.9 ABG O2 Capacity 13.4 L 12.9 L Emmanuel Test Yes Yes ABG Potassium A-a O2 Difference 311.0 304.0 Hgb O2 Saturation 91.4 L 94.9 L Glucose Lactate Vent Mode Prvc/ac A/c Mechanical Rate 12 12 FiO2 60.0 60.0 Tidal Volume 500 450 PEEP 5 CPAP Sodium Potassium Chloride Carbon Dioxide Anion Gap BUN Creatinine Est GFR ( Amer) Est GFR (Non-Af Amer) POC Glucose (mg/dL) Random Glucose Lactic Acid Calcium Total Bilirubin AST ALT Alkaline Phosphatase Troponin I 0.0680 Total Protein Albumin Globulin Albumin/Globulin Ratio Arterial Blood Potassium Influenza Typ A,B (EIA) 10/12/16 10/13/16 10/13/16 19:04 01:00 04:40 WBC 28.8 H D RBC 3.26 L Hgb 9.5 L Hct 30.3 L MCV 92.8 D MCH 29.0 MCHC 31.2 L RDW 18.2 H Plt Count 222 D MPV 9.3 Neut % (Auto) 95.0 H Lymph % (Auto) 2.0 L [place] % (Auto) 2.9 Eos % (Auto) 0.0 Baso % (Auto) 0.1 Neut # 27.4 H Lymph # 0.6 L [place] # 0.8 Eos # 0.0 Baso # 0.0 Total Counted Cancelled Neutrophils % (Manual) Cancelled Band Neutrophils % Cancelled Lymphocytes % (Manual) Cancelled Reactive Lymphs % Cancelled Monocytes % (Manual) Cancelled Eosinophils % (Manual) Cancelled Basophils % (Manual) Cancelled Metamyelocytes % Cancelled Myelocytes % Cancelled Promyelocytes % Cancelled Blast Cells % Cancelled Plasma Cell % (Manual) Cancelled Nucleated RBC % Cancelled Hypersegmented Polys Cancelled Smudge Cells Cancelled Toxic Granulation Cancelled Dohle Bodies Cancelled Skinny Rods Cancelled Platelet Estimate Cancelled Plt Clumps, EDTA Cancelled Large Platelets Cancelled Giant Platelets Cancelled RBC Morphology Cancelled Polychromasia Cancelled Hypochromasia (manual) Cancelled Poikilocytosis (manual Cancelled Basophilic Stippling Cancelled Anisocytosis (manual) Cancelled Microcytosis (manual) Cancelled Macrocytosis (manual) Cancelled Spherocytes Cancelled Sickle Cells Cancelled Target Cells Cancelled Tear Drop Cells Cancelled Ovalocytes Cancelled Stomatocytes Cancelled Helmet Cells Cancelled Mason-Trimble Bodies Cancelled Stephen Cells Cancelled Acanthocytes (Spur) Cancelled Rouleaux Cancelled Schistocytes Cancelled pCO2 pO2 HCO3 ABG pH ABG Total CO2 ABG O2 Saturation ABG O2 Content ABG Base Excess ABG Hemoglobin ABG Carboxyhemoglobin POC ABG HHb (Measured) ABG Methemoglobin ABG O2 Capacity Emmanuel Test ABG Potassium A-a O2 Difference Hgb O2 Saturation Glucose Lactate Vent Mode Mechanical Rate FiO2 Tidal Volume PEEP CPAP Sodium 143 Potassium 4.5 Chloride 104 Carbon Dioxide 21 L Anion Gap 23 H BUN 50 H Creatinine 1.6 H Est GFR ( Amer) 52 Est GFR (Non-Af Amer) 43 POC Glucose (mg/dL) Random Glucose 179 H Lactic Acid 2.0 Calcium 8.7 Total Bilirubin 0.7 AST 32 ALT 34 Alkaline Phosphatase 92 Troponin I 0.0880 Total Protein 6.0 L Albumin 2.8 L Globulin 3.2 Albumin/Globulin Ratio 0.9 L Arterial Blood Potassium Influenza Typ A,B (EIA) Negative for flu a/b 10/13/16 10/13/16 10/13/16 05:00 06:21 10:00 WBC RBC Hgb Hct MCV MCH MCHC RDW Plt Count MPV Neut % (Auto) Lymph % (Auto) [place] % (Auto) Eos % (Auto) Baso % (Auto) Neut # Lymph # [place] # Eos # Baso # Total Counted Neutrophils % (Manual) Band Neutrophils % Lymphocytes % (Manual) Reactive Lymphs % Monocytes % (Manual) Eosinophils % (Manual) Basophils % (Manual) Metamyelocytes % Myelocytes % Promyelocytes % Blast Cells % Plasma Cell % (Manual) Nucleated RBC % Hypersegmented Polys Smudge Cells Toxic Granulation Dohle Bodies Skinny Rods Platelet Estimate Plt Clumps, EDTA Large Platelets Giant Platelets RBC Morphology Polychromasia Hypochromasia (manual) Poikilocytosis (manual Basophilic Stippling Anisocytosis (manual) Microcytosis (manual) Macrocytosis (manual) Spherocytes Sickle Cells Target Cells Tear Drop Cells Ovalocytes Stomatocytes Helmet Cells Mason-Trimble Bodies Stephen Cells Acanthocytes (Spur) Rouleaux Schistocytes pCO2 38 37 pO2 122 H 131 H HCO3 24.1 24.7 ABG pH 7.40 7.42 ABG Total CO2 24.7 25.1 ABG O2 Saturation 99.8 H 99.9 H ABG O2 Content 12.5 L ABG Base Excess -1.1 -0.3 ABG Hemoglobin 9.0 L ABG Carboxyhemoglobin 1.7 H POC ABG HHb (Measured) 0.1 ABG Methemoglobin 1.4 ABG O2 Capacity 12.5 L Emmanuel Test Yes Yes ABG Potassium 4.5 A-a O2 Difference 258.0 179.0 Hgb O2 Saturation 96.8 Glucose 195 H Lactate 2.0 Vent Mode A/c Mechanical Rate 12 FiO2 60.0 50.0 Tidal Volume 450 PEEP 5 5 CPAP 15 Sodium 135.0 Potassium Chloride 106.0 Carbon Dioxide Anion Gap BUN Creatinine Est GFR ( Amer) Est GFR (Non-Af Amer) POC Glucose (mg/dL) 182 H Random Glucose Lactic Acid Calcium Total Bilirubin AST ALT Alkaline Phosphatase Troponin I Total Protein Albumin Globulin Albumin/Globulin Ratio Arterial Blood Potassium 4.5 Influenza Typ A,B (EIA) Assessment & Plan - Assessment and Plan (Free Text) Assessment: PNEUMONIA WITH RESPIRATORY FAILURE CAD WITH CABGS CHF-CHRONIC SYSTOLIC AND DIASTOLIC S/P ATRIAL FIBRILLATION AND VT-REMAINS IN SINUS RHYTHM Plan: THE PATIENT WAS ADMITTED TO THE ICU MV, IV ANTIBIOTICS, FUROSEMIDE, METOPROLOL, ASPIRIN, AMIODARONE, ENALAPRIL STATINS NOT GIVEN DUE TO MUSCLE ACHES BEFORE
--- NOTE | 2016-10-13 15:28 | PQF GENQUE ---
Dr. Dial, (1)In agreement with the diagnosis of Sepsis?: if yes (2) etiology of Sepsis? :if known after work up completed (3) Sepsis: POA? H and P: absent at this time ER MD: Clinical Impression: CHF (congestive heart failure), Pneumonia, COPD ( chronic obstructive pulmonary disease),Respiratory failure with hypercapnia, Sepsis -- here with acute respiratory failure that required intubation Pulmonary consult; (1) Pneumonia Status: Acute Priority: High (2) Sepsis Status : Acute Priority: High (3) Respiratory failure with hypercapnia Status: Acute Priority: High (4) COPD ( chronic obstructive pulmonary disease) Status: Chronic temp:100.7->100.7 pulse:114->114->120 resp rate:16->32-> 12-> 12->.28->30-.28->29 O2 sat:92->90->non-rebreather ABG lactate:1.3->2.0 WBC:17.9->28.8 left shift: band 19 IVABs, IVF's This form is a permanent part of the medical record Clarification of your documentation is requested to better reflect the severity of illness and intensity of treatment of your patient. Indicators present [] Specify: [] [] Specify: [] [] Specify: [] [] Specify: [] Location in the medical record that reflects the above clinical findings: [] Treatment Provided: [] PHYSICIAN'S RESPONSE Based on your medical judgment of the clinical indicators outlined above please clarify the following: [] Practitioner response [] If unable to determine, please check the box, sign and date. Present On Admission (POA) Indicator: [] Present at the time of admission [] Not present at the time of admission [] Clinically Undetermined In responding to this query, please exercise your independent professional judgment. The fact that a question is asked does not imply that any particular answer is desired or expected. Thank you for your clarification on this documentation. If you have any questions please call. * Thank you, Maral Guido RN BSN ext. #[phone] MTDD
--- NOTE | 2016-10-13 15:33 | PQF GENQUE ---
Dr. Dial, (1)Site (s) of Pressure Ulcer? (2) POA? OR: Disagree OR: Unable to determine 10/12 : attending order:referral wound care; reason foe exam:unstageable heel wounds and sacral stage 2 10/12 :pressure ulcer assessment ICU nurse:rt. and lt. heel: purple or maroon localized area discolored intact skin or blood; and sacrum:intact skin with non -blanchable redness This form is a permanent part of the medical record Clarification of your documentation is requested to better reflect the severity of illness and intensity of treatment of your patient. Indicators present [] Specify: [] [] Specify: [] [] Specify: [] [] Specify: [] Location in the medical record that reflects the above clinical findings: [] Treatment Provided: [] PHYSICIAN'S RESPONSE Based on your medical judgment of the clinical indicators outlined above please clarify the following: [] Practitioner response [] If unable to determine, please check the box, sign and date. Present On Admission (POA) Indicator: [] Present at the time of admission [] Not present at the time of admission [] Clinically Undetermined In responding to this query, please exercise your independent professional judgment. The fact that a question is asked does not imply that any particular answer is desired or expected. Thank you for your clarification on this documentation. If you have any questions please call. * Thank you, Maral Guido RN BSN ext. #[phone] MTDD
[2016-10-13] MEDS: Acetaminophen 650mg/20.3ml solution UD PO PRN (18:40)
--- NOTE | 2016-10-13 20:38 | CP.PCM.PN ---
Subjective - Date & Time of Evaluation Date of Evaluation: 10/13/16 Time of Evaluation: 22:22 - Subjective Subjective: Above noted ABG good Objective - Vital Signs/Intake and Output Vital Signs (last 24 hours): Temp Pulse Resp BP Pulse Ox 97.3 F L 85 30 H 114/63 100 10/13/16 19:40 10/13/16 18:00 10/13/16 18:00 10/13/16 18:00 10/13/16 18:00 Intake and Output: 10/13/16 10/14/16 18:59 06:59 Intake Total 1464 Output Total 600 Balance 864 - Medications Medications: Current Medications Acetaminophen (Tylenol 650mg/20.3ml Solution Ud) 650 mg PO Q6 PRN PRN Reason: Pain, Mild (1-3) Last Admin: 10/13/16 18:40 Dose: 650 mg Albuterol/Ipratropium (Duoneb 3 Mg/0.5 Mg (3 Ml) Ud) 3 ml INH RQ6 [facility] Last Admin: 10/13/16 19:15 Dose: 3 ml Amiodarone HCl (Cordarone) 200 mg PO DAILY [facility] Last Admin: 10/13/16 11:46 Dose: 200 mg Aspirin (Aspirin Chewable) 81 mg PEG DAILY [facility] Last Admin: 10/13/16 08:45 Dose: 81 mg Enalapril Maleate (Vasotec) 2.5 mg PO DAILY [facility] Enoxaparin Sodium (Lovenox) 40 mg SC DAILY [facility] PR[facility] Reason: Protocol Last Admin: 10/13/16 08:44 Dose: 40 mg Ciprofloxacin (Cipro 400mg/200ml Dsw) 200 mls @ 200 mls/hr IVPB Q12 [facility] Last Admin: 10/13/16 10:41 Dose: 200 mls/hr Vancomycin HCl 500 mg/ Sodium (Chloride) 100 mls @ 100 mls/hr IVPB Q12 [facility] Last Admin: 10/13/16 20:14 Dose: 100 mls/hr Piperacillin Sod/Tazobactam (Sod 2.25 gm/ Sodium Chloride) 100 mls @ 100 mls/ hr IVPB Q6 [facility] Last Admin: 10/13/16 17:32 Dose: 100 mls/hr Methylprednisolone 30 mg/ (Sodium Chloride) 50 mls @ 100 mls/hr IVPB Q8 [facility] Last Admin: 10/13/16 17:31 Dose: 100 mls/hr Metoprolol Tartrate (Lopressor) 12.5 mg GT Q12 [facility] Last Admin: 10/13/16 11:46 Dose: 12.5 mg Pantoprazole Sodium (Protonix Inj) 40 mg IVP DAILY [facility] Last Admin: 10/13/16 08:44 Dose: 40 mg - Labs Labs: 10/13/16 04:40 10/13/16 04:40 PT 12.2 SECONDS (9.6-11.2) H 10/12/16 14:26 INR 1.17 (0.92-1.08) H 10/12/16 14:26 APTT 31.1 SECONDS (23.3-32.5) 10/12/16 14:26 - Respiratory Exam Respiratory Exam: NORMAL BREATHING PATTERN - Cardiovascular Exam Cardiovascular Exam: REGULAR RHYTHM - GI/Abdominal Exam GI & Abdominal Exam: Normal Bowel Sounds Assessment and Plan - Assessment and Plan (Free Text) Assessment: Acute Respiratory Failure Aspiration?? COPD S/P Klebsiella RLL Pneumonia? S/P L pneumothorax Intubated ABX ICU Pulmonary S/P V-fib/ V-tach 2 to pulmonary dx A-fib CAD S/P CABG Amiodorone Cardiology Hyperkalemia etiol ?? s/p SMITA/ CKD Nephrology Cortisol level ?? Chronic chest wall pain Hx Dec oral intake swallowing?? PEG Jevity and oral feedings s/p + C-diff + Ag -toxin
--- NOTE | 2016-10-13 23:27 | PN ---
DATE: 10/13/2016 LOCATION: The patient in ICU, bed 422. EVENTS: The patient is seen and evaluated at the bedside. Events since admission were reviewed. Past medical, surgical, social and family history reviewed and noted. A 71-year -old male with cardiomyopathy, general debilitation, recurrent pneumonia, chronic obstructive pulmonary disease, status post respiratory arrest recently complicated with pneumothorax and pneumonia, was in intermediate, admitted with a change in mental status associated with shortness of breath, noted to have hypercapnic hypoxic respiratory failure, pneumonia, failed BiPAP, intubated on mechanical ventilation. Initially, on AC 12, tidal volume of 500, FiO2 of 60%, PEEP 5. This morning, changed to pressure support of 10, PEEP 5, FiO2 45%, tolerating. Alert, awake, follows commands, appropriate. No distress noted. VITAL SIGNS: Temperature 98.9, heart rate 80's,_ regular, blood pressure 111/56 , saturating 100%, end tidal CO2 of 23, FiO2 45%. Intake 1464, output 600, positive 864. HEENT: Pupils reactive. Conjunctivae pale. Sclerae white. NECK: Supple. CHEST: Bilateral breath sounds diminished intensity, scattered rhonchi. HEART: Rhythm regular. S1, S2 normal. ABDOMEN: Bowel sounds present, soft. EXTREMITIES: Trace edema.,_ decubitus breakdown on both heels. CURRENT MEDICATIONS: Tylenol 650 q. 6 p.r.n., DuoNeb 3 mL via nebulizer q. 6, amiodarone 200 mg p.o. daily, aspirin 81 mg daily, ciprofloxacin 400 mg q. 12, Vasotec 2.5 mg p.o. daily, Lovenox 40 subQ daily, Solu-Medrol 30 mg IV q. 8, Lopressor 12.5 mg gastrostomy tube q. 12, Protonix 40 IV daily, Zosyn 2.5 grams IV q. 6, vancomycin 500 mg IV q. 12. LABORATORY DATA: WBC 28.8, hemoglobin 9.5, hematocrit 30.3, platelet count at 222, neutrophils , lymphocytes 2, monocytes 2.9. PT 12.2, INR 1.17, PTT 31.1. ABG: pH 7.42, pCO2 of 37, pO2 of 131, saturation 99.9 on pressure support of 15, PEEP of 5, FiO2 50%. SMA-7: Sodium 143, potassium 4.9, chloride 104, CO2 of 21, blood urea nitrogen 50, creatinine 1.6, glucose 179, calcium 8.7, total bilirubin 0.7, AST 32, ALT 34, alkaline phosphatase 92, total protein 6, albumin 2.8. Microbiology: Urine culture negative. Blood culture negative. Chest x-ray this morning: Endotracheal tube in place. No pneumothorax. Worsening of patchy airspace disease in the left lung and persistent patchy airspace disease right lower lobe. IMPRESSION: Acute hypoxic respiratory failure, pneumonia, aspiration/healthcare -associated pneumonia, chronic obstructive pulmonary disease, chronic systolic heart failure, chronic kidney disease, anemia of chronic disease, paroxysmal atrial fibrillation. PLAN: Continue with the current medications. Wean off the ventilator as tolerated. Continue antibiotic, bronchodilator. DVT and GI prophylaxis. Continue feeding through the PEG. Will discuss with pulmonary regarding extubation if possible in the morning. Wilfredo De La Cruz MD cc: [id number] TT: 10/13/2016 23:26:48 Confirmation # [id number] Dictation # [id number] mn ROB
[2016-10-14] MEDS: methylPREDNISolone 30 MG in Sodium Chloride 0.9% 50 ML IVPB SCH ×3 (00:55→20:33)
[2016-10-14] MEDS: Albuterol-Ipratrop 3 mg / 0.5 (3 ml) UD INH SCH ×4 (01:19→19:47)
[2016-10-14 06:08] LABS: ALB/GLOB RATIO 0.9 (1.0-2.1); BILIRUBIN,TOTAL 0.7 mg/dl (0.2-1.3); CALCIUM 8.8 mg/dL (8.4-10.2); POTASSIUM 4.6 MMOL/L (3.6-5.0)
[2016-10-14 06:20] LABS: ABG ALLEN TEST YES; ABG MECHANICAL RATE 12; ARTERIAL BLOOD GAS HCO3 21.8 mmol/L (21-28); ARTERIAL BLOOD GAS MODE PRVC/AC; ARTERIAL BLOOD GAS O2 CAPACITY 9.7 mL/dL (16-24); ARTERIAL BLOOD GAS O2 CONTENT 9.7 ML/dL (15-23); ARTERIAL BLOOD GAS PO2 169 mm/Hg (80-100); ATERIAL BLOOD GAS PEEP 5; CARBOXYHEMOGLOBIN 1.3 % (0.5-1.5); HHB 0.2 % (0.0-5.0); METHEMOGLOBIN 1.5 % (0.0-3.0)
[2016-10-14] MEDS: Acetaminophen 650mg/20.3ml solution UD PO PRN ×3 (06:30→18:09)
[2016-10-14 06:38] LABS: HEMATOCRIT 26.9 % (35.0-51.0); MEAN CELL VOLUME 92.4 fl (80.0-94.0); MEAN CORPUSCULAR HEMOGLOBIN 29.8 pg (27.0-31.0); MEAN CORPUSCULAR HGB CONC 32.2 g/dL (33.0-37.0); RED CELL DISTRIBUTION WIDTH 18.1 % (11.5-14.5)
--- NOTE | 2016-10-14 08:06 | CARD ---
APPROVED REPORT EKG Measurement Heart [id number] <Conclusion> Due to baseline artefacts, P waves could not be identified. Wide QRS rhythm Left axis deviation Left ventricular hypertrophy with QRS widening Nonspecific ST and T wave abnormality Abnormal ECG
[2016-10-14] MEDS: Enoxaparin 40 mg Syringe SC SCH (08:41)
[2016-10-14] MEDS: Ciprofloxacin 400mg/200ml D5W 200 ML IVPB SCH ×2 (08:41→20:34)
--- NOTE | 2016-10-14 08:50 | RAD ---
HISTORY: SOB COMPARISON: Comparison is made to 09/11/2016 FINDINGS: LUNGS: Again seen are heterogeneous reticular and reticulonodular opacities in the lower lobes. Interval appearance or worsening of heterogeneous opacity at the mid left lung since the previous exam. Blunting of both costophrenic angles. PLEURA: Blunting of both costophrenic angles. CARDIOVASCULAR: Normal. OSSEOUS STRUCTURES: No significant abnormalities. VISUALIZED UPPER ABDOMEN: Normal. OTHER FINDINGS: None. IMPRESSION: Worsening care heterogeneous opacities especially at the mid left lung since the previous exam. Blunting of both costophrenic angles suggestive of small pleural effusions.
--- NOTE | 2016-10-14 08:54 | RAD ---
HISTORY: post intubation COMPARISON: Comparison is made to the previous study dated 10/12/2016 FINDINGS: LUNGS: The ET tube is seen at appropriate position. No significant interval change in the lungs since the previous exam. PLEURA: Blunting of both costophrenic angles. CARDIOVASCULAR: Normal. OSSEOUS STRUCTURES: No significant abnormalities. VISUALIZED UPPER ABDOMEN: Normal. OTHER FINDINGS: None. IMPRESSION: Appropriate position of the ETT. No significant interval change.
--- NOTE | 2016-10-14 10:25 | CP.PCM.PN ---
Subjective - Date & Time of Evaluation Date of Evaluation: 10/14/16 Time of Evaluation: 10:17 - Subjective Subjective: Overnight events noted. Had been placed back on vent support overnight, but returned to CPAP/PS this morning. Easily awakens, cooperative with the exam. Appears comfortable w/o any paradoxical respiratory motion. Vital signs have been stable. Leukocytosis still significant. Elevated BUN/creatinine noted. Mildly acidotic and tachypneic, but ABG looks good. Small volume of secretions suctioned from ETT. Gram stain of sputum shows some gram negative rods. No dullness on percussion and no subcut emphysema palpated. Trachea is midline. Rhonchi are heard bilaterally with scattered E wheezes. No bronchial breath sounds heard. No cyanosis. Today's CXR looks a little better than yesterday's. Will need antibiotic adjustment. Would have ID involved; had Klebsiella pneumoniae and ESBL + E coli on previous hospitalization. Will place on T-bar 50% O2 and observe. Maybe he can be extubated later today if doing well. Decrease solu-medrol to Q12H. Objective - Vital Signs/Intake and Output Vital Signs (last 24 hours): Temp Pulse Resp BP Pulse Ox 98.4 F 95 H 29 H 120/72 98 10/14/16 08:00 10/14/16 08:00 10/14/16 08:00 10/14/16 08:00 10/14/16 08:00 Intake and Output: 10/13/16 10/14/16 23:59 11:59 Intake Total 1660 854 Output Total 600 650 Balance 1060 204 - Medications Medications: Current Medications Acetaminophen (Tylenol 650mg/20.3ml Solution Ud) 650 mg PO Q6 PRN PRN Reason: Pain, Mild (1-3) Last Admin: 10/14/16 06:30 Dose: 650 mg Albuterol/Ipratropium (Duoneb 3 Mg/0.5 Mg (3 Ml) Ud) 3 ml INH RQ6 [facility] Last Admin: 10/14/16 07:32 Dose: 3 ml Amiodarone HCl (Cordarone) 200 mg PO DAILY [facility] Last Admin: 10/14/16 08:41 Dose: 200 mg Aspirin (Aspirin Chewable) 81 mg PEG DAILY [facility] Last Admin: 10/14/16 08:41 Dose: 81 mg Enalapril Maleate (Vasotec) 2.5 mg PO DAILY [facility] Last Admin: 10/14/16 08:41 Dose: 2.5 mg Enoxaparin Sodium (Lovenox) 40 mg SC DAILY [facility] PRN Reason: Protocol Last Admin: 10/14/16 08:41 Dose: 40 mg Ciprofloxacin (Cipro 400mg/200ml Dsw) 200 mls @ 200 mls/hr IVPB Q12 [facility] Last Admin: 10/14/16 08:41 Dose: 200 mls/hr Piperacillin Sod/Tazobactam (Sod 2.25 gm/ Sodium Chloride) 100 mls @ 100 mls/ hr IVPB Q6 [facility] Last Admin: 10/14/16 03:27 Dose: 100 mls/hr Methylprednisolone 30 mg/ (Sodium Chloride) 50 mls @ 100 mls/hr IVPB Q12 [facility] Metoprolol Tartrate (Lopressor) 12.5 mg GT Q12 [facility] Last Admin: 10/14/16 08:41 Dose: 12.5 mg Pantoprazole Sodium (Protonix Inj) 40 mg IVP DAILY [facility] Last Admin: 10/14/16 08:40 Dose: 40 mg - Labs Labs: 10/14/16 04:35 10/14/16 04:35 PT 12.2 SECONDS (9.6-11.2) H 10/12/16 14:26 INR 1.17 (0.92-1.08) H 10/12/16 14:26 APTT 31.1 SECONDS (23.3-32.5) 10/12/16 14:26 Assessment and Plan (1) Pneumonia Status: Acute (2) Sepsis Status: Acute (3) Respiratory failure with hypercapnia Status: Acute (4) COPD (chronic obstructive pulmonary disease) Status: Chronic
--- NOTE | 2016-10-14 10:29 | CP.PCM.PN ---
Subjective - Date & Time of Evaluation Date of Evaluation: 10/14/16 Time of Evaluation: 08:30 - Subjective Subjective: INTUBATED Objective - Vital Signs/Intake and Output Vital Signs (last 24 hours): Temp Pulse Resp BP Pulse Ox 98.4 F 95 H 29 H 120/72 98 10/14/16 08:00 10/14/16 08:00 10/14/16 08:00 10/14/16 08:00 10/14/16 08:00 Intake and Output: 10/14/16 10/14/16 06:59 18:59 Intake Total 1360 114 Output Total 650 Balance 710 114 - Medications Medications: Current Medications Acetaminophen (Tylenol 650mg/20.3ml Solution Ud) 650 mg PO Q6 PRN PRN Reason: Pain, Mild (1-3) Last Admin: 10/14/16 06:30 Dose: 650 mg Albuterol/Ipratropium (Duoneb 3 Mg/0.5 Mg (3 Ml) Ud) 3 ml INH RQ6 [facility] Last Admin: 10/14/16 07:32 Dose: 3 ml Amiodarone HCl (Cordarone) 200 mg PO DAILY [facility] Last Admin: 10/14/16 08:41 Dose: 200 mg Aspirin (Aspirin Chewable) 81 mg PEG DAILY [facility] Last Admin: 10/14/16 08:41 Dose: 81 mg Enalapril Maleate (Vasotec) 2.5 mg PO DAILY [facility] Last Admin: 10/14/16 08:41 Dose: 2.5 mg Enoxaparin Sodium (Lovenox) 40 mg SC DAILY [facility] PRN Reason: Protocol Last Admin: 10/14/16 08:41 Dose: 40 mg Ciprofloxacin (Cipro 400mg/200ml Dsw) 200 mls @ 200 mls/hr IVPB Q12 [facility] Last Admin: 10/14/16 08:41 Dose: 200 mls/hr Piperacillin Sod/Tazobactam (Sod 2.25 gm/ Sodium Chloride) 100 mls @ 100 mls/ hr IVPB Q6 [facility] Last Admin: 10/14/16 03:27 Dose: 100 mls/hr Methylprednisolone 30 mg/ (Sodium Chloride) 50 mls @ 100 mls/hr IVPB Q12 [facility] Metoprolol Tartrate (Lopressor) 12.5 mg GT Q12 [facility] Last Admin: 10/14/16 08:41 Dose: 12.5 mg Pantoprazole Sodium (Protonix Inj) 40 mg IVP DAILY [facility] Last Admin: 10/14/16 08:40 Dose: 40 mg - Labs Labs: 10/14/16 04:35 10/14/16 04:35 PT 12.2 SECONDS (9.6-11.2) H 10/12/16 14:26 INR 1.17 (0.92-1.08) H 10/12/16 14:26 APTT 31.1 SECONDS (23.3-32.5) 10/12/16 14:26 - Respiratory Exam Respiratory Exam: Rales - Cardiovascular Exam Cardiovascular Exam: REGULAR RHYTHM, +S1, +S2 - Additional Findings Additional findings: ORE FIELDER NSR K+ 4.6 WBC 26K Assessment and Plan - Assessment and Plan (Free Text) Assessment: PNEUMONIA WITH RESPIRATORY FAILURE COPD CAD CHRONIC SYSTOLIC AND DIASTOLIC CHF 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
[2016-10-14 11:58] LABS: ABG ALLEN TEST YES; ARTERIAL BLOOD GAS HCO3 23.4 mmol/L (21-28); ARTERIAL BLOOD GAS MODE T-BAR; ARTERIAL BLOOD GAS O2 CONTENT 12.9 ML/dL (15-23); ARTERIAL BLOOD GAS PH 7.37 (7.35-7.45); ARTERIAL BLOOD GAS PO2 134 mm/Hg (80-100); ARTERIAL BLOOD HGB O2 SAT 96.8 % (95.0-98.0); CARBOXYHEMOGLOBIN 1.3 % (0.5-1.5); HHB 0.6 % (0.0-5.0); METHEMOGLOBIN 1.4 % (0.0-3.0)
--- NOTE | 2016-10-14 15:10 | CP.PCM.CON ---
History of Present Illness - History of Present Illness History of Present Illness: 71 M w/ pmh of CAD, CHF, COPD, CABG that presented 2 days ago w/ respiratory failure, b/l PNA and intubated and admitted to ICU for further evaluation. He was just extubated a few minutes ago. He is unable to give me any further history at this time as he is still quite drowsy. He was getting IV lasix for concern for volume overload and abx. He ROS: a full detailed ROS is limited as pt is still drwosy from sedation Allergies: Morphine, Gemfibrozil PMH: CKD III, COPD, CHF w/ EF ~30, CAD, PAfib, Pna , hyperkalemia famhx: unable to obtain due to his mental status sochx: unable to obtain due to mental status Past Patient History - Infectious Disease Hx of Infectious Diseases: None - Tetanus Immunizations Tetanus Immunization: Unknown - Past Medical History & Family History Past Medical History?: Yes - Past Social History Smoking Status: Former Smoker Chewing Tobacco Use: No Cigar Use: No Alcohol: None Drugs: Denies Home Situation {Lives}: Alone - CARDIAC Hx Atrial Fibrillation: Yes Hx Cardia Arrhythmia: Yes Hx Congestive Heart Failure: Yes Hx Hypercholesterolemia: Yes Hx Hypertension: Yes Hx Peripheral Edema: Yes - PULMONARY Hx Asthma: Yes Hx Bronchitis: Yes Hx Chronic Obstructive Pulmonary Disease (COPD): Yes Hx Emphysema: Yes Hx Pneumonia: Yes - NEUROLOGICAL Hx Neurological Disorder: No - HEENT Hx Cataracts: Yes (right eye) - RENAL Hx Chronic Kidney Disease: No - ENDOCRINE/METABOLIC Hx Diabetes Mellitus Type 2: Yes Hx Hypothyroidism: No - HEMATOLOGICAL/ONCOLOGICAL Hx Anemia: Yes Hx Human Immunodeficiency Virus (HIV): No - INTEGUMENTARY Hx Psoriasis: Yes - MUSCULOSKELETAL/RHEUMATOLOGICAL Hx Falls: No - GASTROINTESTINAL Hx Diverticulitis: Yes - GENITOURINARY/GYNECOLOGICAL Hx Prostate Problems: Yes - PSYCHIATRIC Hx Substance Use: No - SURGICAL HISTORY Hx Coronary Artery Bypass Graft: Yes (1994) Hx Coronary Stent: Yes (2000) Other/Comment: SUB-TOTAL GASTRECTOMY FOR PUD WITH VENTRAL HERNIA REPAIRS SUBSEQUENTLY - ANESTHESIA Hx Anesthesia: Yes Hx Anesthesia Reactions: No Hx Malignant Hyperthermia: No Meds Allergies/Adverse Reactions: Allergies Allergy/AdvReac Type Severity Reaction Status Date / Time gemfibrozil [From Lopid] Allergy RASH Verified 10/12/16 14:03 morphine Allergy SHORTNESS Verified 10/12/16 14:03 OF BREATH - Medications Medications: Current Medications Acetaminophen (Tylenol 650mg/20.3ml Solution Ud) 650 mg PO Q6 PRN PRN Reason: Pain, Mild (1-3) Last Admin: 10/14/16 12:56 Dose: 650 mg Albuterol/Ipratropium (Duoneb 3 Mg/0.5 Mg (3 Ml) Ud) 3 ml INH RQ6 [facility] Last Admin: 10/14/16 13:14 Dose: 3 ml Amiodarone HCl (Cordarone) 200 mg PO DAILY [facility] Last Admin: 10/14/16 08:41 Dose: 200 mg Aspirin (Aspirin Chewable) 81 mg PEG DAILY [facility] Last Admin: 10/14/16 08:41 Dose: 81 mg Enalapril Maleate (Vasotec) 2.5 mg PO DAILY [facility] Last Admin: 10/14/16 08:41 Dose: 2.5 mg Enoxaparin Sodium (Lovenox) 30 mg SC DAILY [facility] PRN Reason: Protocol Ciprofloxacin (Cipro 400mg/200ml Dsw) 200 mls @ 200 mls/hr IVPB Q12 [facility] Last Admin: 10/14/16 08:41 Dose: 200 mls/hr Piperacillin Sod/Tazobactam (Sod 2.25 gm/ Sodium Chloride) 100 mls @ 100 mls/ hr IVPB Q6 [facility] Last Admin: 10/14/16 12:20 Dose: 100 mls/hr Methylprednisolone 30 mg/ (Sodium Chloride) 50 mls @ 100 mls/hr IVPB Q12 [facility] Metoprolol Tartrate (Lopressor) 12.5 mg GT Q12 [facility] Last Admin: 10/14/16 08:41 Dose: 12.5 mg Pantoprazole Sodium (Protonix Inj) 40 mg IVP DAILY [facility] Last Admin: 10/14/16 08:40 Dose: 40 mg Physical Exam - Constitutional Appears: No Acute Distress - Head Exam Head Exam: ATRAUMATIC - Eye Exam Eye Exam: Normal appearance - ENT Exam Additional comments: dry OP - Neck Exam Neck exam: Positive for: Normal Inspection - Respiratory Exam Additional comments: clear anteriorly - Cardiovascular Exam Cardiovascular Exam: +S1, +S2 - GI/Abdominal Exam GI & Abdominal Exam: Normal Bowel Sounds Additional comments: + peg - Extremities Exam Additional comments: no edema - Neurological Exam Additional comments: drowsy - Psychiatric Exam Psychiatric exam: Flat Affect - Skin Skin Exam: Normal Color Results - Vital Signs Recent Vital Signs: Last Vital Signs Temp 98.9 F 10/14/16 12:00 Pulse 92 H 10/14/16 12:00 Resp 29 H 10/14/16 12:00 BP 114/75 10/14/16 12:00 Pulse Ox 99 10/14/16 12:00 - Labs Result Diagrams: 10/14/16 04:35 10/14/16 04:35 Labs: Laboratory Results - last 24 hr 10/13/16 10/14/16 10/14/16 04:40 04:35 06:06 WBC 26.0 H RBC 2.92 L Hgb 8.7 L Hct 26.9 L MCV 92.4 MCH 29.8 MCHC 32.2 L RDW 18.1 H Plt Count 203 pCO2 45 pO2 169 H HCO3 21.8 ABG pH 7.30 L ABG Total CO2 23.5 ABG O2 Saturation 99.8 H ABG O2 Content 9.7 L ABG Base Excess -4.0 L ABG Hemoglobin 6.8 L ABG Carboxyhemoglobin 1.3 POC ABG HHb (Measured) 0.2 ABG Methemoglobin 1.5 ABG O2 Capacity 9.7 L Emmanuel Test Yes A-a O2 Difference 96.0 Hgb O2 Saturation 97.0 Vent Mode Prvc/ac Mechanical Rate 12 FiO2 45.0 Tidal Volume 450 PEEP 5 Sodium 146 Potassium 4.6 Chloride 107 Carbon Dioxide 22 Anion Gap 22 H BUN 70 H Creatinine 1.9 H Est GFR ( Amer) 42 Est GFR (Non-Af Amer) 35 Random Glucose 193 H Calcium 8.8 Total Bilirubin 0.7 GGT 120 H AST 22 ALT 32 Alkaline Phosphatase 80 Total Protein 6.0 L Albumin 2.8 L Globulin 3.1 Albumin/Globulin Ratio 0.9 L 10/14/16 11:55 WBC RBC Hgb Hct MCV MCH MCHC RDW Plt Count pCO2 40 pO2 134 H HCO3 23.4 ABG pH 7.37 ABG Total CO2 24.3 ABG O2 Saturation 99.4 H ABG O2 Content 12.9 L ABG Base Excess -2.0 ABG Hemoglobin 9.3 L ABG Carboxyhemoglobin 1.3 POC ABG HHb (Measured) 0.6 ABG Methemoglobin 1.4 ABG O2 Capacity 13.0 L Emmanuel Test Yes A-a O2 Difference 173.0 Hgb O2 Saturation 96.8 Vent Mode T-bar Mechanical Rate FiO2 50.0 Tidal Volume PEEP Sodium Potassium Chloride Carbon Dioxide Anion Gap BUN Creatinine Est GFR ( Amer) Est GFR (Non-Af Amer) Random Glucose Calcium Total Bilirubin GGT AST ALT Alkaline Phosphatase Total Protein Albumin Globulin Albumin/Globulin Ratio Assessment & Plan - Assessment and Plan (Free Text) Assessment: ARF / Hypernatremia/ Pneumonia/ CHF/ Anemia / Acidosis Plan: SMITA - suspect he is mildly volume contracted - would recc holding lasix for now (his bnp is much lower than prior admissions and he his hypernatremic). Will discontinue devan-i as well for now. Would suggest give gentle hydration. hypernatremia: started on 250 cc q6 free water flush htn- hold devan-i for now abx per primary - monitor renal function, if cr rises further tomorrow would recc reduce zosyn to 2.26 q6 acidosis- likely related to smita - will monitor and see if need supplementation thank you for this interesting consult
--- NOTE | 2016-10-14 15:41 | RAD ---
HISTORY: Respiratory failure. Technique: Single view portable erect @ 16:55. COMPARISON: Multiple serial examinations preceding the most recent study: October 13, 2016. FINDINGS: LUNGS: Improving multifocal infiltrates left lung greater than right. PLEURA: No significant pleural effusion identified, no pneumothorax apparent. CARDIOVASCULAR: No significant interval change compared to the prior examination(s). OSSEOUS STRUCTURES: No significant abnormalities. VISUALIZED UPPER ABDOMEN: Normal. OTHER FINDINGS: Endotracheal tube in stable position. None. IMPRESSION: Improving pulmonary infiltrates.
--- NOTE | 2016-10-14 20:53 | CP.PCM.PN ---
Subjective - Date & Time of Evaluation Date of Evaluation: 10/14/16 Time of Evaluation: 22:22 - Subjective Subjective: Extubated WBC 26K Objective - Vital Signs/Intake and Output Vital Signs (last 24 hours): Temp Pulse Resp BP Pulse Ox 98.3 F 90 34 H 118/69 99 10/14/16 16:37 10/14/16 18:00 10/14/16 18:00 10/14/16 18:00 10/14/16 18:00 Intake and Output: 10/14/16 10/15/16 18:59 06:59 Intake Total 1189 Output Total 650 Balance 539 - Medications Medications: Current Medications Acetaminophen (Tylenol 650mg/20.3ml Solution Ud) 650 mg PO Q6 PRN PRN Reason: Pain, Mild (1-3) Last Admin: 10/14/16 18:09 Dose: 650 mg Albuterol/Ipratropium (Duoneb 3 Mg/0.5 Mg (3 Ml) Ud) 3 ml INH RQ6 [facility] Last Admin: 10/14/16 13:14 Dose: 3 ml Amiodarone HCl (Cordarone) 200 mg PO DAILY [facility] Last Admin: 10/14/16 08:41 Dose: 200 mg Aspirin (Aspirin Chewable) 81 mg PEG DAILY [facility] Last Admin: 10/14/16 08:41 Dose: 81 mg Enoxaparin Sodium (Lovenox) 30 mg SC DAILY [facility] PRN Reason: Protocol Ciprofloxacin (Cipro 400mg/200ml Dsw) 200 mls @ 200 mls/hr IVPB Q12 [facility] Last Admin: 10/14/16 20:34 Dose: 200 mls/hr Piperacillin Sod/Tazobactam (Sod 2.25 gm/ Sodium Chloride) 100 mls @ 100 mls/ hr IVPB Q6 [facility] Last Admin: 10/14/16 17:07 Dose: 100 mls/hr Methylprednisolone 30 mg/ (Sodium Chloride) 50 mls @ 100 mls/hr IVPB Q12 [facility] Last Admin: 10/14/16 20:33 Dose: 100 mls/hr Metoprolol Tartrate (Lopressor) 12.5 mg GT Q12 [facility] Last Admin: 10/14/16 08:41 Dose: 12.5 mg Pantoprazole Sodium (Protonix Inj) 40 mg IVP DAILY [facility] Last Admin: 10/14/16 08:40 Dose: 40 mg - Labs Labs: 10/14/16 04:35 10/14/16 04:35 PT 12.2 SECONDS (9.6-11.2) H 10/12/16 14:26 INR 1.17 (0.92-1.08) H 10/12/16 14:26 APTT 31.1 SECONDS (23.3-32.5) 10/12/16 14:26 - Respiratory Exam Respiratory Exam: NORMAL BREATHING PATTERN - Cardiovascular Exam Cardiovascular Exam: REGULAR RHYTHM - GI/Abdominal Exam GI & Abdominal Exam: Normal Bowel Sounds Assessment and Plan - Assessment and Plan (Free Text) Assessment: Acute Respiratory Failure Aspiration?? COPD S/P Klebsiella RLL Pneumonia? S/P L pneumothorax Extubated ABX ICU Pulmonary ID S/P V-fib/ V-tach 2 to pulmonary dx A-fib CAD S/P CABG Amiodorone Cardiology SMITA/ ?CKD Hx Hyperkalemia etiol ?? Nephrology IVF Cortisol level ?? Chronic chest wall pain Hx Dec oral intake swallowing?? PEG Jevity and oral feedings s/p + C-diff + Ag -toxin
[2016-10-15] MEDS: Albuterol-Ipratrop 3 mg / 0.5 (3 ml) UD INH SCH ×5 (01:03→20:20)
[2016-10-15] MEDS: Acetaminophen 650mg/20.3ml solution UD PO PRN ×2 (02:27→09:08)
[2016-10-15 06:00] LABS: CALCIUM 8.7 mg/dL (8.4-10.2); HEMATOCRIT 26.5 % (35.0-51.0); MEAN CELL VOLUME 92.3 fl (80.0-94.0); MEAN CORPUSCULAR HEMOGLOBIN 29.5 pg (27.0-31.0); MEAN CORPUSCULAR HGB CONC 31.9 g/dL (33.0-37.0); POTASSIUM 3.9 MMOL/L (3.6-5.0)
--- NOTE | 2016-10-15 08:18 | CP.PCM.PN ---
Subjective - Date & Time of Evaluation Date of Evaluation: 10/15/16 Time of Evaluation: 08:11 - Subjective Subjective: Extubated yesterday. Has done well on nasal canula. SpO2 99% on 3 LPM presently. WBC 23, Hgb 8.5 this morning. Remains afebrile and normotensive. Asleep, but easily awakened. No complaint of SOB. Some cough, but minimal sputum today. Still complains of some residual chest wall pain on the left. No subcut emphysema, no dullness anteriorly. Loud pleural rub over the right anterior lower chest. Diminished breath sounds in remainder of lung mendez. Sonorous rhonchi in dependant lower lobes, no bronchial breathing. Medium rales posteriorly in the left lower chest. No audible wheezes. May be OOB to chair as tolerated. May transfer out of ICU. Will add acetylcysteine to aerosol, await ID input on present antibiotic regimen. Objective - Vital Signs/Intake and Output Vital Signs (last 24 hours): Temp Pulse Resp BP Pulse Ox 98.4 F 82 28 H 150/82 99 10/15/16 08:00 10/15/16 08:00 10/15/16 08:00 10/15/16 08:00 10/15/16 08:00 Intake and Output: 10/14/16 10/15/16 23:59 11:59 Intake Total 670 1400 Output Total 650 550 Balance 20 850 - Medications Medications: Current Medications Acetaminophen (Tylenol 650mg/20.3ml Solution Ud) 650 mg PO Q6 PRN PRN Reason: Pain, Mild (1-3) Last Admin: 10/15/16 02:27 Dose: 650 mg Albuterol/Ipratropium (Duoneb 3 Mg/0.5 Mg (3 Ml) Ud) 3 ml INH QID [facility] Amiodarone HCl (Cordarone) 200 mg PO DAILY [facility] Last Admin: 10/14/16 08:41 Dose: 200 mg Aspirin (Aspirin Chewable) 81 mg PEG DAILY [facility] Last Admin: 10/14/16 08:41 Dose: 81 mg Enoxaparin Sodium (Lovenox) 30 mg SC DAILY [facility] PRN Reason: Protocol Ciprofloxacin (Cipro 400mg/200ml Dsw) 200 mls @ 200 mls/hr IVPB Q12 [facility] Last Admin: 10/14/16 20:34 Dose: 200 mls/hr Piperacillin Sod/Tazobactam (Sod 2.25 gm/ Sodium Chloride) 100 mls @ 100 mls/ hr IVPB Q6 [facility] Last Admin: 10/15/16 04:16 Dose: 100 mls/hr Methylprednisolone 30 mg/ (Sodium Chloride) 50 mls @ 100 mls/hr IVPB Q12 [facility] Last Admin: 10/14/16 20:33 Dose: 100 mls/hr Metoprolol Tartrate (Lopressor) 12.5 mg GT Q12 [facility] Last Admin: 10/14/16 21:19 Dose: 12.5 mg Pantoprazole Sodium (Protonix Inj) 40 mg IVP DAILY [facility] Last Admin: 10/14/16 08:40 Dose: 40 mg - Labs Labs: 10/15/16 04:40 10/15/16 04:40 PT 12.2 SECONDS (9.6-11.2) H 10/12/16 14:26 INR 1.17 (0.92-1.08) H 10/12/16 14:26 APTT 31.1 SECONDS (23.3-32.5) 10/12/16 14:26 Assessment and Plan (1) Pneumonia Status: Acute (2) Sepsis Status: Acute (3) Respiratory failure with hypercapnia Status: Resolved (4) COPD (chronic obstructive pulmonary disease) Status: Chronic
--- NOTE | 2016-10-15 08:29 | PN ---
DATE: 10/14/2016 The patient in ICU, bed 422. TIME SPENT: 35 minutes. The patient is seen and evaluated at the bedside. Events since admission and overnight are reviewed. PAST MEDICAL, SURGICAL, SOCIAL AND FAMILY HISTORY: Reviewed and noted. Discussed with pulmonary jd edwards consultant. A 71-year-old male with cardiomyopathy, general debilitation, recurrent pneumonia, chronic obstructive pulmonary disease, status post respiratory arrest recently complicated with pneumothorax, pneumonia, from skilled nursing admitted with shortness of breath. Noted to be hypercapnic, hypoxic respiratory failure. Intubated on mechanical ventilation day 3. Overnight, tolerated pressure support. Switched to assist control overnight. This morning back to pressure support 10 or PEEP of 5, FIO2 of 40%. Remains alert, awake, follows commands, appropriate. No distress noted. Mild secretions suctioned from the endotracheal tube as per pulmonary consult note. VITAL SIGNS: Temperature 98.4, heart rate 95, blood pressure 120/72, respiratory rate 29, oxygen saturation 100%. Intake 2824, output 1250, positive balance 1574. PHYSICAL EXAMINATION: HEAD, EARS, EYES, NOSE, THROAT: Pupils reactive, conjunctivae pink, sclerae white. Trachea central. CHEST: Bilateral breath sounds, scattered rhonchi. HEART: Rhythm regular with occasional ectopics. No audible murmur. ABDOMEN: Bowel sounds present. Liver and spleen not palpable. Bladder not distended. NEUROLOGIC EXAMINATION: Able to lift head off the bed. Moves all 4 extremities. SKIN: With mild ecchymosis. Unstageable pressure ulcer on both heels. CURRENT MEDICATIONS: Tylenol 650 q. 6 p.r.n., albuterol/Atrovent inhalation 3 mL via nebulizer q. 6, amiodarone 200 mg p.o. daily, aspirin 81 mg per PEG daily , ciprofloxacin 400 mg q. 12, Vasotec 2.5 mg packet daily, Lovenox 40 subQ daily , Solu-Medrol 30 mg IV q. 12, Lopressor 12.5 mg GT q. 12, Protonix 40 IV daily, Zosyn 2.25 g IV q. 6 hours. LABORATORY DATA: WBC 26,000, hemoglobin 8.7, hematocrit 26.9, platelet count 2_ __. PT 12.2, INR 1.17, PTT 31.1. ABG: pH 7.30, pCO2 of 45, [id number], saturation 99.8 on AC/PRVC _12_ at 45%, PEEP 5. Currently on T-bar 50%, saturating 100%. SMA-7: Sodium 146, potassium 4.6, chloride 107, CO2 of 22. Blood urea nitrogen 70, creatinine 1.9, random glucose 193. GGT 120. AST 22, ALT 32, alkaline phosphatase was 80, total protein 6, albumin 2.8. Urinalysis is negative. Serology: Influenza A and B negative. IMPRESSION: 1. Hypercapnic hypoxic respiratory failure secondary to chronic obstructive pulmonary disease. 2. Pneumonia. 3. Septic metabolic encephalopathy. Anemia of chronic disease. Hemoglobin stable, leukocytosis secondary to pneumonia, and contributed by systemic steroid. 4. Acute on chronic renal insufficiency secondary to dehydration and/or due to systemic steroid. PLAN: 1. If repeat of blood gas. If adequate extubate and put on oxygen supplement via nasal cannula. 2. Continue current antibiotic, bronchodilator treatment q. 6 hours. DVT and GI prophylaxis. Increased fluid intake through the PEG to 50 mL q. 6 hours. Continue feeding through the PEG. Wilfredo De La Cruz MD cc: [id number] TT: 10/14/2016 12:23:56 Confirmation # [id number] Dictation # [id number] MTDD
[2016-10-15] MEDS: methylPREDNISolone 30 MG in Sodium Chloride 0.9% 50 ML IVPB SCH ×2 (08:56→20:40)
[2016-10-15] MEDS: Ciprofloxacin 400mg/200ml D5W 200 ML IVPB SCH ×2 (08:56→20:40)
[2016-10-15] MEDS: Enoxaparin 30 mg Syringe SC SCH (09:00)
--- NOTE | 2016-10-15 11:12 | RAD ---
HISTORY: pneumonia COMPARISON: Comparison is made to the previous study dated 10/14/2016 FINDINGS: LUNGS: Persistent patchy opacities at the lower lobes. No significant interval change in the lungs since the previous exam. The patient is status post extubation. PLEURA: Bilateral pleural effusions are suspected. CARDIOVASCULAR: Normal. OSSEOUS STRUCTURES: No significant abnormalities. VISUALIZED UPPER ABDOMEN: Normal. OTHER FINDINGS: None. IMPRESSION: Persistent patchy opacities at the lower lobes. Status post intubation. Possible small bilateral pleural effusions.
--- NOTE | 2016-10-15 13:35 | CP.PCM.CON ---
History of Present Illness - History of Present Illness History of Present Illness: 71yo male with PMHx of CHF, COPD and pneumonia, sent to the ED from his long-term for evaluation of respiratory distress. Pt is accompanied at bedside by his son who is the primary historian. Son reports pt has been at the long-term since June 2016. Son reports the pt had pneumonia in the past and was admitted in this facility for care. Son reports the patient has been doing fairly well and was "okay"yesterday. He reports vitising the pt today for lunch when he noticed the pt was a little altered and was breathing heavily. He then called the ED to inform the pt would be brought here for evaluation. En route to the ED, the pt had O2 saturation of 82% and was given 2 trials of Duoneb after which his O2 levels juliet to 90%. Pt currently is responsive but lethargic , he is able to follow simple commands. on last admission grew esbl + gram neg in blood / sputum Of note, pt has a feeding tube and has a history of foot infection for which he has been following up with Podiatry. At present, son offers no additional complaints on behalf of the pt. Past Medical History - Medical History PMH: Anemia, Asthma, Atrial Fibrillation, Benign Prostatic Hyperplasia, Bronchitis, CAD, Cardia Arrhythmia, CHF, COPD, Diabetes (type II), Diverticulitis, Emphysema, HTN, Hypercholesterolemia, Peripheral Edema, Pneumonia Denies: Arthritis, HIV, Hypothyroidism, Chronic Kidney Disease, Rheumatoid Arthritis - Surgical History Surgical History: CABG (1994), Coronary Stent (2000), Hernia Repair () Review of Systems - Constitutional Constitutional: As Per HPI, Anorexia - EENT Eyes: absent: As Per HPI, Blind Spots, Blurred Vision, Change in Vision, Decreased Night Vision, Diplopia, Discharge, Dry Eye, Exophthalmos, Floaters, Irritation, Itchy Eyes, Loss of Peripheral Vision, Pain, Photophobia, Requires Corrective Lenses, Sees Flashes, Spots in Vision, Tunnel Vision, Other Visual Disturbances, Loss of Vision, Other Ears: absent: As Per HPI, Decreased Hearing, Ear Discharge, Ear Pain, Tinnitus, Abnormal Hearing, Disequilibrium, Dizziness, Other Nose/Mouth/Throat: absent: As Per HPI, Epistaxis, Nasal Congestion, Nasal Discharge, Nasal Obstruction, Nasal Trauma, Nose Pain, Post Nasal Drip, Sinus Pain, Sinus Pressure, Bleeding Gums, Change in Voice, Dental Pain, Dry Mouth, Dysphagia, Halitosis, Hoarsness, Lip Swelling, Mouth Lesions, Mouth Pain, Odynophagia, Sore Throat, Throat Swelling, Tongue Swelling, Facial Pain, Neck Pain, Neck Mass, Other - Cardiovascular Cardiovascular: absent: As Per HPI, Acrocyanosis, Chest Pain, Chest Pain at Rest , Chest Pain with Activity, Claudication, Diaphoresis, Dyspnea, Dyspnea on Exertion, Edema, Irregular Heart Rhythm, Pain Radiating to Arm/Neck/Jaw, Leg Edema, Leg Ulcers, Lightheadedness, Orthopnea, Palpitations, Paroxysmal Nocturnal Dyspnea, Pedal Edema, Radiating Pain, Rapid Heart Rate, Slow Heart Rate, Syncope, Other - Respiratory Respiratory: As Per HPI, Cough, Dyspnea. absent: Hemoptysis - Gastrointestinal Gastrointestinal: absent: As Per HPI, Abdominal Pain, Belching, Bloating, Change in Bowel Habits, Change in Stool Character, Coffee Ground Emesis, Constipation, Cramping, Diarrhea, Dyspepsia, Dysphagia, Early Satiety, Excessive Flatus, Fecal Incontinence, Heartburn, Hematemesis, Hematochezia, Loose Stools, Melena, Nausea, Odynophagia, Temesmus, Vomiting, Other - Genitourinary Genitourinary: absent: As Per HPI, Change in Urinary Stream, Difficulty Urinating, Dysuria, Flank Pain, Hematuria, Pyuria, Nocturia, Urinary Incontinence, Urinary Frequency, Urinary Hesitance, Urinary Urgency, Voiding Freq/Small Amts, Freq UTI, Hx Renal/Bladder Calculi, Hx /Renal Surgery, Bladder Distension, Other - Musculoskeletal Musculoskeletal: absent: As Per HPI, Abnormal Gait, Arthralgias, Atrophy, Back Pain, Deformity, Joint Swelling, Limited Range of Motion, Loss of Height, Muscle Cramps, Muscle Weakness, Myalgias, Neck Pain, Numbness, Radiating Pain into Limb, Stiffness, Tingling, Other - Integumentary Integumentary: As Per HPI - Neurological Neurological: absent: As Per HPI, Abnormal Gait, Abnormal Hearing, Abnormal Movements, Abnormal Speech, Behavioral Changes, Burning Sensations, Confusion, Convulsions, Disequilibrium, Dizziness, Numbness, Focal Weakness, Frequent Falls , Headaches, Lack of Coordination, Loss of Vision, Memory Loss, Paresthesias, Radicular Pain, Restless Legs, Sensory Deficit, Syncope, Tingling, Tremor, Vertigo, Weakness, Other Visual Disturbances, Other - Endocrine Endocrine: absent: As Per HPI, Change in Body Appearance, Change in Libido, Cold Intolorance, Deepening of Voice, Excessive Sweating, Fatigue, Flushing, Heat Intolorance, Increase in Ring/Shoe/Hat Size, Palpitations, Polydipsia, Polyphagia, Polyuria, Other - Hematologic/Lymphatic Hematologic: absent: As Per HPI, Easy Bleeding, Easy Bruising, Lymphadenopathy, Other Past Patient History - Infectious Disease Hx of Infectious Diseases: None - Tetanus Immunizations Tetanus Immunization: Unknown - Past Medical History & Family History Past Medical History?: Yes - Past Social History Smoking Status: Former Smoker Chewing Tobacco Use: No Cigar Use: No Alcohol: None Drugs: Denies Home Situation {Lives}: Alone - CARDIAC Hx Atrial Fibrillation: Yes Hx Cardia Arrhythmia: Yes Hx Congestive Heart Failure: Yes Hx Hypercholesterolemia: Yes Hx Hypertension: Yes Hx Peripheral Edema: Yes - PULMONARY Hx Asthma: Yes Hx Bronchitis: Yes Hx Chronic Obstructive Pulmonary Disease (COPD): Yes Hx Emphysema: Yes Hx Pneumonia: Yes - NEUROLOGICAL Hx Neurological Disorder: No - HEENT Hx Cataracts: Yes (right eye) - RENAL Hx Chronic Kidney Disease: No - ENDOCRINE/METABOLIC Hx Diabetes Mellitus Type 2: Yes Hx Hypothyroidism: No - HEMATOLOGICAL/ONCOLOGICAL Hx Anemia: Yes Hx Human Immunodeficiency Virus (HIV): No - INTEGUMENTARY Hx Psoriasis: Yes - MUSCULOSKELETAL/RHEUMATOLOGICAL Hx Falls: No - GASTROINTESTINAL Hx Diverticulitis: Yes - GENITOURINARY/GYNECOLOGICAL Hx Prostate Problems: Yes - PSYCHIATRIC Hx Substance Use: No - SURGICAL HISTORY Hx Coronary Artery Bypass Graft: Yes (1994) Hx Coronary Stent: Yes (2000) Other/Comment: SUB-TOTAL GASTRECTOMY FOR PUD WITH VENTRAL HERNIA REPAIRS SUBSEQUENTLY - ANESTHESIA Hx Anesthesia: Yes Hx Anesthesia Reactions: No Hx Malignant Hyperthermia: No Meds Allergies/Adverse Reactions: Allergies Allergy/AdvReac Type Severity Reaction Status Date / Time gemfibrozil [From Lopid] Allergy RASH Verified 10/12/16 14:03 morphine Allergy SHORTNESS Verified 10/12/16 14:03 OF BREATH - Medications Medications: Current Medications Acetaminophen (Tylenol 650mg/20.3ml Solution Ud) 650 mg PO Q6 PRN PRN Reason: Pain, Mild (1-3) Last Admin: 10/15/16 09:08 Dose: 650 mg Acetylcysteine (Mucomyst 10% 4ml) 2 ml IH RBID [facility] Albuterol/Ipratropium (Duoneb 3 Mg/0.5 Mg (3 Ml) Ud) 3 ml INH RQID [facility] Last Admin: 10/15/16 12:10 Dose: 3 ml Amiodarone HCl (Cordarone) 200 mg PO DAILY [facility] Last Admin: 10/15/16 09:01 Dose: 200 mg Aspirin (Aspirin Chewable) 81 mg PEG DAILY [facility] Last Admin: 10/15/16 09:00 Dose: 81 mg Enoxaparin Sodium (Lovenox) 30 mg SC DAILY [facility] PRN Reason: Protocol Last Admin: 10/15/16 09:00 Dose: 30 mg Ciprofloxacin (Cipro 400mg/200ml Dsw) 200 mls @ 200 mls/hr IVPB Q12 [facility] Last Admin: 10/15/16 08:56 Dose: 200 mls/hr Piperacillin Sod/Tazobactam (Sod 2.25 gm/ Sodium Chloride) 100 mls @ 100 mls/ hr IVPB Q6 [facility] Last Admin: 10/15/16 04:16 Dose: 100 mls/hr Methylprednisolone 30 mg/ (Sodium Chloride) 50 mls @ 100 mls/hr IVPB Q12 [facility] Last Admin: 10/15/16 08:56 Dose: 100 mls/hr Metoprolol Tartrate (Lopressor) 12.5 mg GT Q12 [facility] Last Admin: 10/15/16 09:01 Dose: 12.5 mg Pantoprazole Sodium (Protonix Inj) 40 mg IVP DAILY [facility] Last Admin: 10/15/16 09:00 Dose: 40 mg Physical Exam - Constitutional Appears: Non-toxic, Cachectic, Chronically Ill - Head Exam Head Exam: ATRAUMATIC, NORMAL INSPECTION, NORMOCEPHALIC - Eye Exam Eye Exam: PERRL. absent: Scleral icterus - ENT Exam ENT Exam: Mucous Membranes Dry, Normal External Ear Exam, Normal Oropharynx - Neck Exam Neck exam: Negative for: Lymphadenopathy, Thyromegaly - Respiratory Exam Respiratory Exam: Decreased Breath Sounds, Rhonchi - Cardiovascular Exam Cardiovascular Exam: Tachycardia, REGULAR RHYTHM, +S1, +S2 - GI/Abdominal Exam GI & Abdominal Exam: Diminished Bowel Sounds, Soft. absent: Tenderness - Rectal Exam Rectal Exam: Deferred - Exam Exam: NORMAL INSPECTION - Extremities Exam Extremities exam: Positive for: pedal pulses present. Negative for: calf tenderness, pedal edema, tenderness - Back Exam Back exam: absent: CVA tenderness (L), CVA tenderness (R) - Neurological Exam Neurological exam: Alert, CN II-XII Intact, Oriented x3, Reflexes Normal - Psychiatric Exam Psychiatric exam: Normal Mood - Skin Skin Exam: Dry Results - Vital Signs Recent Vital Signs: Last Vital Signs Temp 98.4 F 10/15/16 11:58 Pulse 83 10/15/16 11:58 Resp 32 H 10/15/16 11:58 BP 144/84 10/15/16 11:58 Pulse Ox 98 10/15/16 11:58 - Labs Result Diagrams: 10/15/16 04:40 10/15/16 04:40 Labs: Laboratory Results - last 24 hr 10/15/16 04:40 WBC 23.0 H RBC 2.87 L Hgb 8.5 L Hct 26.5 L MCV 92.3 MCH 29.5 MCHC 31.9 L RDW 18.0 H Plt Count 197 Sodium 147 Potassium 3.9 Chloride 109 H Carbon Dioxide 21 L Anion Gap 21 H BUN 72 H Creatinine 1.8 H Est GFR ( Amer) 45 Est GFR (Non-Af Amer) 37 Random Glucose 180 H Calcium 8.7 Assessment & Plan (1) Pneumonia Status: Acute Priority: High (2) Sepsis Status: Acute Priority: High (3) COPD (chronic obstructive pulmonary disease) Status: Chronic Priority: High (4) COPD (chronic obstructive pulmonary disease) with acute bronchitis Status: Acute Priority: High (5) Atrial fibrillation Status: Acute (6) Atrial fibrillation with RVR Status: Acute - Assessment and Plan (Free Text) Assessment: add merrem d/c zosyn hx esbl in sputum
--- NOTE | 2016-10-15 14:05 | CP.PCM.PN ---
Subjective - Date & Time of Evaluation Date of Evaluation: 10/15/16 Time of Evaluation: 09:30 - Subjective Subjective: PT EXTUBATED BREATHING BETTER CHRONIC ANTERIOR CHEST RIB PAIN PATIENTS STATED THAT IN THE NH BE WAS BOTH RECEIVING GT FEEDINGS AND WAS EATING FOOD AND HE VOMITED AND WAS FOUND CONFUSED BY HIS SON Objective - Vital Signs/Intake and Output Vital Signs (last 24 hours): Temp Pulse Resp BP Pulse Ox 98.4 F 83 32 H 144/84 98 10/15/16 11:58 10/15/16 11:58 10/15/16 11:58 10/15/16 11:58 10/15/16 11:58 Intake and Output: 10/15/16 10/15/16 06:59 18:59 Intake Total 1400 Output Total 550 Balance 850 - Medications Medications: Current Medications Acetaminophen (Tylenol 650mg/20.3ml Solution Ud) 650 mg PO Q6 PRN PRN Reason: Pain, Mild (1-3) Last Admin: 10/15/16 09:08 Dose: 650 mg Acetylcysteine (Mucomyst 10% 4ml) 2 ml IH RBID [facility] Albuterol/Ipratropium (Duoneb 3 Mg/0.5 Mg (3 Ml) Ud) 3 ml INH RQID [facility] Last Admin: 10/15/16 12:10 Dose: 3 ml Amiodarone HCl (Cordarone) 200 mg PO DAILY [facility] Last Admin: 10/15/16 09:01 Dose: 200 mg Aspirin (Aspirin Chewable) 81 mg PEG DAILY [facility] Last Admin: 10/15/16 09:00 Dose: 81 mg Enoxaparin Sodium (Lovenox) 30 mg SC DAILY [facility] PRN Reason: Protocol Last Admin: 10/15/16 09:00 Dose: 30 mg Ciprofloxacin (Cipro 400mg/200ml Dsw) 200 mls @ 200 mls/hr IVPB Q12 [facility] Last Admin: 10/15/16 08:56 Dose: 200 mls/hr Methylprednisolone 30 mg/ (Sodium Chloride) 50 mls @ 100 mls/hr IVPB Q12 [facility] Last Admin: 10/15/16 08:56 Dose: 100 mls/hr Meropenem 500 mg/ Sodium (Chloride) 100 mls @ 100 mls/hr IVPB Q8 [facility] Metoprolol Tartrate (Lopressor) 12.5 mg GT Q12 [facility] Last Admin: 10/15/16 09:01 Dose: 12.5 mg Pantoprazole Sodium (Protonix Inj) 40 mg IVP DAILY [facility] Last Admin: 10/15/16 09:00 Dose: 40 mg - Labs Labs: 10/15/16 04:40 10/15/16 04:40 PT 12.2 SECONDS (9.6-11.2) H 10/12/16 14:26 INR 1.17 (0.92-1.08) H 10/12/16 14:26 APTT 31.1 SECONDS (23.3-32.5) 10/12/16 14:26 - Respiratory Exam Respiratory Exam: Decreased Breath Sounds, Rales, Rhonchi - Cardiovascular Exam Cardiovascular Exam: Irregular Rhythm, +S1, +S2 - Extremities Exam Additional comments: NO SIGNIFICANT LE EDEMA - Additional Findings Additional findings: DIRECTOR PHARMACOVIGILANCE WITH SINUS ALTERNATING WITH ATRIAL FIBRILLATION PULMONARY NOTE SEEN Assessment and Plan - Assessment and Plan (Free Text) Assessment: COPD WITH PNEUMONIA-POSSIBLY ASPIRATIOM CAD CHRONIC ATRIAL FIBRILLATION CHRONIC SYSTOLIC AND DIASTOLIC CHF Plan: CONTINUE O2, IV ANTIBIOTICS, AMIODARONE, FUROSEMIDE, ASA, LOVENOX NOTE: FULL ANTICOAGULATION NOT GIVEN PATIENT IS A FALL RISK AND HAS HAD A FEW FALLS IN THE PAST AND EVEN SUFFERED A FALL WITH A LE FRACTURE IN 2016
[2016-10-15] MEDS ORDERED: Lidocaine 2% Jelly (5 ml) TOP PRN (14:10)
--- NOTE | 2016-10-15 15:57 | CP.PCM.PN ---
Subjective - Date & Time of Evaluation Date of Evaluation: 10/15/16 Time of Evaluation: 04:00 - Subjective Subjective: Extubated. no respiratory distress Objective - Vital Signs/Intake and Output Vital Signs (last 24 hours): Temp Pulse Resp BP Pulse Ox 98.4 F 83 32 H 144/84 98 10/15/16 11:58 10/15/16 11:58 10/15/16 11:58 10/15/16 11:58 10/15/16 11:58 Intake and Output: 10/15/16 10/15/16 06:59 18:59 Intake Total 1400 930 Output Total 550 Balance 850 930 - Medications Medications: Current Medications Acetaminophen (Tylenol 650mg/20.3ml Solution Ud) 650 mg PO Q6 PRN PRN Reason: Pain, Mild (1-3) Last Admin: 10/15/16 09:08 Dose: 650 mg Acetylcysteine (Mucomyst 10% 4ml) 2 ml IH RBID [facility] Albuterol/Ipratropium (Duoneb 3 Mg/0.5 Mg (3 Ml) Ud) 3 ml INH RQID [facility] Last Admin: 10/15/16 12:10 Dose: 3 ml Amiodarone HCl (Cordarone) 200 mg PO DAILY [facility] Last Admin: 10/15/16 09:01 Dose: 200 mg Aspirin (Aspirin Chewable) 81 mg PEG DAILY [facility] Last Admin: 10/15/16 09:00 Dose: 81 mg Enoxaparin Sodium (Lovenox) 30 mg SC DAILY [facility] PRN Reason: Protocol Last Admin: 10/15/16 09:00 Dose: 30 mg Ciprofloxacin (Cipro 400mg/200ml Dsw) 200 mls @ 200 mls/hr IVPB Q12 [facility] Last Admin: 10/15/16 08:56 Dose: 200 mls/hr Methylprednisolone 30 mg/ (Sodium Chloride) 50 mls @ 100 mls/hr IVPB Q12 [facility] Last Admin: 10/15/16 08:56 Dose: 100 mls/hr Meropenem 500 mg/ Sodium (Chloride) 100 mls @ 100 mls/hr IVPB Q8 [facility] Lidocaine HCl (Lidocaine Hydrochloride Jelly 2% 5 Ml) 1 ml TOP DAILY [facility] PRN Reason: Pain, Mild (1-3) Metoprolol Tartrate (Lopressor) 12.5 mg GT Q12 [facility] Last Admin: 10/15/16 09:01 Dose: 12.5 mg Pantoprazole Sodium (Protonix Inj) 40 mg IVP DAILY [facility] Last Admin: 10/15/16 09:00 Dose: 40 mg - Labs Labs: 10/15/16 04:40 10/15/16 04:40 PT 12.2 SECONDS (9.6-11.2) H 10/12/16 14:26 INR 1.17 (0.92-1.08) H 10/12/16 14:26 APTT 31.1 SECONDS (23.3-32.5) 10/12/16 14:26 - Respiratory Exam Additional comments: Lungs b/l rhonchi - Cardiovascular Exam Cardiovascular Exam: REGULAR RHYTHM - Extremities Exam Additional comments: No edema Assessment and Plan - Assessment and Plan (Free Text) Assessment: SMITA. renal function is improving K+ is controlled. Previously pt had hyperkalemia requiring kayexalate Bronchitis /pneumonia CHF, A.fib Plan: Continue current Mx Monitor renal function
--- NOTE | 2016-10-15 16:18 | CP.PCM.PCO ---
Physician Communication Note - Physician Communication Note Physician Communication Note: Patient cleared for transfer to Tele bed by Cardio /Pulm.
[2016-10-15] MEDS: Meropenem 500 MG in Sodium Chloride 0.9% 100 ML IVPB SCH (16:42)
[2016-10-15] MEDS: Acetylcysteine 10% 4 ML IH SCH (19:36)
--- NOTE | 2016-10-15 20:26 | CP.PCM.PN ---
Subjective - Date & Time of Evaluation Date of Evaluation: 10/15/16 Time of Evaluation: 22:22 - Subjective Subjective: Above noted ABX adjusted WBC 23K Objective - Vital Signs/Intake and Output Vital Signs (last 24 hours): Temp Pulse Resp BP Pulse Ox 98.5 F 89 18 150/76 98 10/15/16 20:00 10/15/16 20:00 10/15/16 20:00 10/15/16 20:00 10/15/16 20:00 Intake and Output: 10/15/16 10/16/16 18:59 06:59 Intake Total 1500 60 Output Total 900 Balance 600 60 - Medications Medications: Current Medications Acetylcysteine (Mucomyst 10% 4ml) 2 ml IH RBID [facility] Last Admin: 10/15/16 20:20 Dose: 2 ml Albuterol/Ipratropium (Duoneb 3 Mg/0.5 Mg (3 Ml) Ud) 3 ml INH RQID [facility] Last Admin: 10/15/16 20:20 Dose: 3 ml Amiodarone HCl (Cordarone) 200 mg PO DAILY [facility] Last Admin: 10/15/16 09:01 Dose: 200 mg Aspirin (Aspirin Chewable) 81 mg PEG DAILY [facility] Last Admin: 10/15/16 09:00 Dose: 81 mg Enoxaparin Sodium (Lovenox) 30 mg SC DAILY [facility] PRN Reason: Protocol Last Admin: 10/15/16 09:00 Dose: 30 mg Ciprofloxacin (Cipro 400mg/200ml Dsw) 200 mls @ 200 mls/hr IVPB Q12 [facility] Last Admin: 10/15/16 08:56 Dose: 200 mls/hr Methylprednisolone 30 mg/ (Sodium Chloride) 50 mls @ 100 mls/hr IVPB Q12 [facility] Last Admin: 10/15/16 08:56 Dose: 100 mls/hr Meropenem 500 mg/ Sodium (Chloride) 100 mls @ 100 mls/hr IVPB Q8 [facility] Last Admin: 10/15/16 16:42 Dose: 100 mls/hr Lidocaine HCl (Lidocaine Hydrochloride Jelly 2% 5 Ml) 1 ml TOP DAILY PRN PRN Reason: Pain, Mild (1-3) Metoprolol Tartrate (Lopressor) 12.5 mg GT Q12 [facility] Last Admin: 10/15/16 09:01 Dose: 12.5 mg Pantoprazole Sodium (Protonix Inj) 40 mg IVP DAILY [facility] Last Admin: 10/15/16 09:00 Dose: 40 mg Tramadol HCl (Ultram) 50 mg PO Q6 PRN PRN Reason: Pain, Mild (1-3) Last Admin: 10/15/16 16:41 Dose: 50 mg - Labs Labs: 10/15/16 04:40 10/15/16 04:40 PT 12.2 SECONDS (9.6-11.2) H 10/12/16 14:26 INR 1.17 (0.92-1.08) H 10/12/16 14:26 APTT 31.1 SECONDS (23.3-32.5) 10/12/16 14:26 - Respiratory Exam Respiratory Exam: NORMAL BREATHING PATTERN - Cardiovascular Exam Cardiovascular Exam: Irregular Rhythm - GI/Abdominal Exam GI & Abdominal Exam: Normal Bowel Sounds Assessment and Plan - Assessment and Plan (Free Text) Assessment: Acute Respiratory Failure Aspiration?? COPD S/P Klebsiella RLL Pneumonia? S/P L pneumothorax Extubated ABX adjusted ICU Pulmonary ID S/P V-fib/ V-tach 2 to pulmonary dx A-fib CAD S/P CABG Amiodorone Cardiology SMITA/ ?CKD Hx Hyperkalemia etiol ?? Nephrology IVF Cortisol level ?? Chronic chest wall pain Hx Dec oral intake swallowing?? PEG Jevity and oral feedings s/p + C-diff + Ag -toxin
[2016-10-15] MEDS: Sucralfate 1 gm/10 ml Oral Susp UD PO SCH (23:00)
--- NOTE | 2016-10-15 23:40 | CP.PCM.CON ---
History of Present Illness - History of Present Illness History of Present Illness: 71 yo male admitted with CPD exacerbation and c/o pain at site of PEG. PEG was placed by me during previous hospitalization ad has been functioning normally. Review of Systems - Constitutional Constitutional: absent: Anorexia - EENT Eyes: absent: Blurred Vision Ears: absent: Decreased Hearing Nose/Mouth/Throat: absent: Epistaxis, Sinus Pain - Cardiovascular Cardiovascular: absent: Chest Pain - Respiratory Respiratory: As Per HPI - Gastrointestinal Gastrointestinal: As Per HPI Past Patient History - Infectious Disease Hx of Infectious Diseases: None - Tetanus Immunizations Tetanus Immunization: Unknown - Past Medical History & Family History Past Medical History?: Yes - Past Social History Smoking Status: Former Smoker Chewing Tobacco Use: No Cigar Use: No Alcohol: None Drugs: Denies Home Situation {Lives}: Alone - CARDIAC Hx Atrial Fibrillation: Yes Hx Cardia Arrhythmia: Yes Hx Congestive Heart Failure: Yes Hx Hypercholesterolemia: Yes Hx Hypertension: Yes Hx Peripheral Edema: Yes - PULMONARY Hx Asthma: Yes Hx Bronchitis: Yes Hx Chronic Obstructive Pulmonary Disease (COPD): Yes Hx Emphysema: Yes Hx Pneumonia: Yes - NEUROLOGICAL Hx Neurological Disorder: No - HEENT Hx Cataracts: Yes (right eye) - RENAL Hx Chronic Kidney Disease: No - ENDOCRINE/METABOLIC Hx Diabetes Mellitus Type 2: Yes Hx Hypothyroidism: No - HEMATOLOGICAL/ONCOLOGICAL Hx Anemia: Yes Hx Human Immunodeficiency Virus (HIV): No - INTEGUMENTARY Hx Psoriasis: Yes - MUSCULOSKELETAL/RHEUMATOLOGICAL Hx Falls: No - GASTROINTESTINAL Hx Diverticulitis: Yes - GENITOURINARY/GYNECOLOGICAL Hx Prostate Problems: Yes - PSYCHIATRIC Hx Substance Use: No - SURGICAL HISTORY Hx Coronary Artery Bypass Graft: Yes (1994) Hx Coronary Stent: Yes (2000) Other/Comment: SUB-TOTAL GASTRECTOMY FOR PUD WITH VENTRAL HERNIA REPAIRS SUBSEQUENTLY - ANESTHESIA Hx Anesthesia: Yes Hx Anesthesia Reactions: No Hx Malignant Hyperthermia: No Meds Allergies/Adverse Reactions: Allergies Allergy/AdvReac Type Severity Reaction Status Date / Time gemfibrozil [From Lopid] Allergy RASH Verified 10/12/16 14:03 morphine Allergy SHORTNESS Verified 10/12/16 14:03 OF BREATH - Medications Medications: Current Medications Acetylcysteine (Mucomyst 10% 4ml) 2 ml IH RBID [facility] Last Admin: 10/15/16 20:20 Dose: 2 ml Albuterol/Ipratropium (Duoneb 3 Mg/0.5 Mg (3 Ml) Ud) 3 ml INH RQID [facility] Last Admin: 10/15/16 20:20 Dose: 3 ml Amiodarone HCl (Cordarone) 200 mg PO DAILY [facility] Last Admin: 10/15/16 09:01 Dose: 200 mg Aspirin (Aspirin Chewable) 81 mg PEG DAILY [facility] Last Admin: 10/15/16 09:00 Dose: 81 mg Enoxaparin Sodium (Lovenox) 30 mg SC DAILY [facility] PRN Reason: Protocol Last Admin: 10/15/16 09:00 Dose: 30 mg Ciprofloxacin (Cipro 400mg/200ml Dsw) 200 mls @ 200 mls/hr IVPB Q12 [facility] Last Admin: 10/15/16 20:40 Dose: 200 mls/hr Methylprednisolone 30 mg/ (Sodium Chloride) 50 mls @ 100 mls/hr IVPB Q12 [facility] Last Admin: 10/15/16 20:40 Dose: 100 mls/hr Meropenem 500 mg/ Sodium (Chloride) 100 mls @ 100 mls/hr IVPB Q8 [facility] Last Admin: 10/15/16 16:42 Dose: 100 mls/hr Lidocaine HCl (Lidocaine Hydrochloride Jelly 2% 5 Ml) 1 ml TOP DAILY PRN PRN Reason: Pain, Mild (1-3) Metoprolol Tartrate (Lopressor) 12.5 mg GT Q12 [facility] Last Admin: 10/15/16 20:41 Dose: 12.5 mg Ondansetron HCl (Zofran Inj) 4 mg IVP Q6 PRN PRN Reason: Nausea/Vomiting Last Admin: 10/15/16 21:16 Dose: 4 mg Pantoprazole Sodium (Protonix Inj) 40 mg IVP DAILY [facility] Last Admin: 10/15/16 09:00 Dose: 40 mg Sucralfate (Carafate Oral Susp) 1 gm PO BID [facility] Last Admin: 10/15/16 23:00 Dose: 1 gm Tramadol HCl (Ultram) 50 mg PO Q6 PRN PRN Reason: Pain, Mild (1-3) Last Admin: 10/15/16 23:06 Dose: 50 mg Physical Exam - Head Exam Head Exam: ATRAUMATIC - Eye Exam Eye Exam: Normal appearance Pupil Exam: NORMAL ACCOMODATION - ENT Exam ENT Exam: Mucous Membranes Moist - Respiratory Exam Respiratory Exam: NORMAL BREATHING PATTERN - Cardiovascular Exam Cardiovascular Exam: REGULAR RHYTHM - GI/Abdominal Exam GI & Abdominal Exam: Normal Bowel Sounds, Soft Additional comments: Gastrostomy tube moved freely when manipulated though patient showed marked abdominal wall sensitivity. . A slight amount of extra slack between bumpeer and abdominal wall given Results - Vital Signs Recent Vital Signs: Last Vital Signs Temp 98.2 F 10/15/16 23:16 Pulse 92 H 10/15/16 21:00 Resp 30 H 10/15/16 21:00 BP 141/70 10/15/16 21:00 Pulse Ox 98 10/15/16 21:00 - Labs Result Diagrams: 10/15/16 04:40 10/15/16 04:40 Labs: Laboratory Results - last 24 hr 10/13/16 10/15/16 09:51 04:40 WBC 23.0 H RBC 2.87 L Hgb 8.5 L Hct 26.5 L MCV 92.3 MCH 29.5 MCHC 31.9 L RDW 18.0 H Plt Count 197 Sodium 147 Potassium 3.9 Chloride 109 H Carbon Dioxide 21 L Anion Gap 21 H BUN 72 H Creatinine 1.8 H Est GFR ( Amer) 45 Est GFR (Non-Af Amer) 37 Random Glucose 180 H Calcium 8.7 Mycoplasma pneumon IgM 169 Assessment & Plan (1) Abdominal wall pain Assessment and Plan: No evidence of infection or other problem with PEG. Patient has extreme abdominal wall sensitivity. Will apply lidocaine jelly topically daily. Status: Acute
[2016-10-16] MEDS: Meropenem 500 MG in Sodium Chloride 0.9% 100 ML IVPB SCH ×3 (00:23→16:01)
[2016-10-16] MEDS ORDERED: Sucralfate 1 gm/10 ml Oral Susp UD PO ONE (03:00)
[2016-10-16] MEDS: Acetylcysteine 10% 4 ML IH SCH ×2 (07:56→19:48)
[2016-10-16] MEDS: Albuterol-Ipratrop 3 mg / 0.5 (3 ml) UD INH SCH ×4 (07:56→19:36)
--- NOTE | 2016-10-16 09:29 | CP.PCM.PN ---
Subjective - Date & Time of Evaluation Date of Evaluation: 10/16/16 Time of Evaluation: 09:27 - Subjective Subjective: Interim events reviewed in medical record. Discussed with nursing staff. Patient is awake and alert. Complains of chest wall pain upper, anterior left side. Vital signs have been stable and he has been afebrile. No CXR seen this morning. Had swallow eval yesterday which he did NOT pass. Oxygenation is good on nasal canula @ 3 LPM.Cooperative with the physical exam. Neck is supple and trachea midline. Pharynx is pink and moist. + tenderness to chest wall pressure on the left. No bruise or ecchymosis, no rib crunch. Breath sounds are present bilaterally, diminished. Few sonorous rhonchi in the dependant areas of the lower lobes. Few medium rales in the LLL posteriorly. No audible wheeze or bronchial breathing. Faint pleural rub is still present anteriorly on the right. Repeat swallow eval today. Continue present aerosol and antibiotic regimen. Reduce solumedrol to 20MG IV Q12H. Transfer to telemetry and begin PT/OT. CXR and labs in AM. Objective - Vital Signs/Intake and Output Vital Signs (last 24 hours): Temp Pulse Resp BP Pulse Ox 98.5 F 92 H 30 H 151/89 H 98 10/16/16 08:00 10/16/16 08:00 10/16/16 08:00 10/16/16 08:00 10/16/16 08:00 Intake and Output: 10/15/16 10/16/16 23:59 11:59 Intake Total 1495 510 Output Total 900 800 Balance 595 -290 - Medications Medications: Current Medications Acetylcysteine (Mucomyst 10% 4ml) 2 ml IH RBID [facility] Last Admin: 10/16/16 07:56 Dose: 2 ml Albuterol/Ipratropium (Duoneb 3 Mg/0.5 Mg (3 Ml) Ud) 3 ml INH RQID [facility] Last Admin: 10/16/16 07:56 Dose: 3 ml Amiodarone HCl (Cordarone) 200 mg PO DAILY [facility] Last Admin: 10/15/16 09:01 Dose: 200 mg Aspirin (Aspirin Chewable) 81 mg PEG DAILY [facility] Last Admin: 10/15/16 09:00 Dose: 81 mg Enoxaparin Sodium (Lovenox) 30 mg SC DAILY [facility] PRN Reason: Protocol Last Admin: 10/15/16 09:00 Dose: 30 mg Ciprofloxacin (Cipro 400mg/200ml Dsw) 200 mls @ 200 mls/hr IVPB Q12 [facility] Last Admin: 10/15/16 20:40 Dose: 200 mls/hr Methylprednisolone 30 mg/ (Sodium Chloride) 50 mls @ 100 mls/hr IVPB Q12 [facility] Last Admin: 10/15/16 20:40 Dose: 100 mls/hr Meropenem 500 mg/ Sodium (Chloride) 100 mls @ 100 mls/hr IVPB Q8 [facility] Last Admin: 10/16/16 00:23 Dose: 100 mls/hr Methylprednisolone 20 mg/ (Sodium Chloride) 50 mls @ 100 mls/hr IVPB Q12 [facility] Lidocaine HCl (Lidocaine Hydrochloride Jelly 2% 5 Ml) 1 ml TOP DAILY PRN PRN Reason: Pain, Mild (1-3) Metoprolol Tartrate (Lopressor) 12.5 mg GT Q12 [facility] Last Admin: 10/15/16 20:41 Dose: 12.5 mg Ondansetron HCl (Zofran Inj) 4 mg IVP Q6 PRN PRN Reason: Nausea/Vomiting Last Admin: 10/15/16 21:16 Dose: 4 mg Pantoprazole Sodium (Protonix Inj) 40 mg IVP DAILY [facility] Last Admin: 10/15/16 09:00 Dose: 40 mg Sucralfate (Carafate Oral Susp) 1 gm PO BID [facility] Last Admin: 10/15/16 23:00 Dose: 1 gm Tramadol HCl (Ultram) 50 mg PO Q6 PRN PRN Reason: Pain, Mild (1-3) Last Admin: 10/15/16 23:06 Dose: 50 mg - Labs Labs: 10/15/16 04:40 10/15/16 04:40 PT 12.2 SECONDS (9.6-11.2) H 10/12/16 14:26 INR 1.17 (0.92-1.08) H 10/12/16 14:26 APTT 31.1 SECONDS (23.3-32.5) 10/12/16 14:26 Assessment and Plan (1) Pneumonia Status: Acute (2) Sepsis Status: Acute (3) Respiratory failure with hypercapnia Status: Resolved (4) COPD (chronic obstructive pulmonary disease) Status: Chronic
[2016-10-16] MEDS: Sucralfate 1 gm/10 ml Oral Susp UD PO SCH ×2 (09:41→15:59)
[2016-10-16] MEDS: Ciprofloxacin 400mg/200ml D5W 200 ML IVPB SCH ×2 (09:42→21:38)
[2016-10-16] MEDS: Enoxaparin 30 mg Syringe SC SCH (09:44)
--- NOTE | 2016-10-16 11:32 | CP.PCM.PN ---
Subjective - Date & Time of Evaluation Date of Evaluation: 10/16/16 Time of Evaluation: 10:30 - Subjective Subjective: BREATHING AND FEELING BETTER NO TYPICAL CHEST PAIN Objective - Vital Signs/Intake and Output Vital Signs (last 24 hours): Temp Pulse Resp BP Pulse Ox 98.5 F 89 30 H 148/80 98 10/16/16 08:00 10/16/16 09:44 10/16/16 08:00 10/16/16 09:44 10/16/16 08:00 Intake and Output: 10/16/16 10/16/16 06:59 18:59 Intake Total 1075 150 Output Total 800 Balance 1075 -650 - Medications Medications: Current Medications Acetylcysteine (Mucomyst 10% 4ml) 2 ml IH RBID [facility] Last Admin: 10/16/16 07:56 Dose: 2 ml Albuterol/Ipratropium (Duoneb 3 Mg/0.5 Mg (3 Ml) Ud) 3 ml INH RQID [facility] Last Admin: 10/16/16 11:15 Dose: 3 ml Amiodarone HCl (Cordarone) 200 mg PO DAILY [facility] Last Admin: 10/16/16 09:42 Dose: 200 mg Aspirin (Aspirin Chewable) 81 mg PEG DAILY [facility] Last Admin: 10/16/16 09:41 Dose: 81 mg Enoxaparin Sodium (Lovenox) 30 mg SC DAILY [facility] PRN Reason: Protocol Last Admin: 10/16/16 09:44 Dose: 30 mg Ciprofloxacin (Cipro 400mg/200ml Dsw) 200 mls @ 200 mls/hr IVPB Q12 [facility] Last Admin: 10/16/16 09:42 Dose: 200 mls/hr Meropenem 500 mg/ Sodium (Chloride) 100 mls @ 100 mls/hr IVPB Q8 [facility] Last Admin: 10/16/16 09:45 Dose: 100 mls/hr Methylprednisolone 20 mg/ (Sodium Chloride) 50 mls @ 100 mls/hr IVPB Q12 [facility] Lidocaine HCl (Lidocaine Hydrochloride Jelly 2% 5 Ml) 1 ml TOP DAILY PRN PRN Reason: Pain, Mild (1-3) Metoprolol Tartrate (Lopressor) 12.5 mg GT Q12 [facility] Last Admin: 10/16/16 09:44 Dose: 12.5 mg Ondansetron HCl (Zofran Inj) 4 mg IVP Q6 PRN PRN Reason: Nausea/Vomiting Last Admin: 10/15/16 21:16 Dose: 4 mg Pantoprazole Sodium (Protonix Inj) 40 mg IVP DAILY [facility] Last Admin: 10/16/16 09:45 Dose: 40 mg Sucralfate (Carafate Oral Susp) 1 gm PO BID [facility] Last Admin: 10/16/16 09:41 Dose: 1 gm Tramadol HCl (Ultram) 50 mg PO Q6 PRN PRN Reason: Pain, Mild (1-3) Last Admin: 10/16/16 09:49 Dose: 50 mg - Labs Labs: 10/15/16 04:40 10/15/16 04:40 PT 12.2 SECONDS (9.6-11.2) H 10/12/16 14:26 INR 1.17 (0.92-1.08) H 10/12/16 14:26 APTT 31.1 SECONDS (23.3-32.5) 10/12/16 14:26 - Respiratory Exam Respiratory Exam: Decreased Breath Sounds, Rales, Rhonchi - Cardiovascular Exam Cardiovascular Exam: REGULAR RHYTHM - Additional Findings 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
--- NOTE | 2016-10-16 13:25 | CP.PCM.PN ---
Subjective - Date & Time of Evaluation Date of Evaluation: 10/16/16 Time of Evaluation: 01:00 - Subjective Subjective: More comfortable today Objective - Vital Signs/Intake and Output Vital Signs (last 24 hours): Temp Pulse Resp BP Pulse Ox 98.4 F 86 17 156/89 H 98 10/16/16 12:00 10/16/16 12:00 10/16/16 12:00 10/16/16 12:00 10/16/16 12:00 Intake and Output: 10/16/16 10/16/16 06:59 18:59 Intake Total 1075 150 Output Total 800 Balance 1075 -650 - Medications Medications: Current Medications Acetylcysteine (Mucomyst 10% 4ml) 2 ml IH RBID [facility] Last Admin: 10/16/16 07:56 Dose: 2 ml Albuterol/Ipratropium (Duoneb 3 Mg/0.5 Mg (3 Ml) Ud) 3 ml INH RQID [facility] Last Admin: 10/16/16 11:15 Dose: 3 ml Amiodarone HCl (Cordarone) 200 mg PO DAILY [facility] Last Admin: 10/16/16 09:42 Dose: 200 mg Aspirin (Aspirin Chewable) 81 mg PEG DAILY [facility] Last Admin: 10/16/16 09:41 Dose: 81 mg Enoxaparin Sodium (Lovenox) 30 mg SC DAILY [facility] PRN Reason: Protocol Last Admin: 10/16/16 09:44 Dose: 30 mg Ciprofloxacin (Cipro 400mg/200ml Dsw) 200 mls @ 200 mls/hr IVPB Q12 [facility] Last Admin: 10/16/16 09:42 Dose: 200 mls/hr Meropenem 500 mg/ Sodium (Chloride) 100 mls @ 100 mls/hr IVPB Q8 [facility] Last Admin: 10/16/16 09:45 Dose: 100 mls/hr Methylprednisolone 20 mg/ (Sodium Chloride) 50 mls @ 100 mls/hr IVPB Q12 [facility] Lidocaine HCl (Lidocaine Hydrochloride Jelly 2% 5 Ml) 1 ml TOP DAILY PRN PRN Reason: Pain, Mild (1-3) Metoprolol Tartrate (Lopressor) 12.5 mg GT Q12 [facility] Last Admin: 10/16/16 09:44 Dose: 12.5 mg Ondansetron HCl (Zofran Inj) 4 mg IVP Q6 PRN PRN Reason: Nausea/Vomiting Last Admin: 10/15/16 21:16 Dose: 4 mg Pantoprazole Sodium (Protonix Inj) 40 mg IVP DAILY [facility] Last Admin: 10/16/16 09:45 Dose: 40 mg Sucralfate (Carafate Oral Susp) 1 gm PO BID [facility] Last Admin: 10/16/16 09:41 Dose: 1 gm Tramadol HCl (Ultram) 50 mg PO Q6 PRN PRN Reason: Pain, Mild (1-3) Last Admin: 10/16/16 09:49 Dose: 50 mg - Labs Labs: 10/15/16 04:40 10/15/16 04:40 PT 12.2 SECONDS (9.6-11.2) H 10/12/16 14:26 INR 1.17 (0.92-1.08) H 10/12/16 14:26 APTT 31.1 SECONDS (23.3-32.5) 10/12/16 14:26 - Respiratory Exam Additional comments: Lungs clear - Cardiovascular Exam Cardiovascular Exam: REGULAR RHYTHM - Extremities Exam Additional comments: No edema Assessment and Plan - Assessment and Plan (Free Text) Assessment: SMITA. Renal function continues to improve K+ is controlled Pneumonia Plan: Continue to monitor renal function Continue low K+ diet
--- NOTE | 2016-10-16 20:44 | CP.PCM.PN ---
Subjective - Date & Time of Evaluation Date of Evaluation: 10/16/16 Time of Evaluation: 22:22 - Subjective Subjective: Above noted BUN/ Creat elevated WBC 22K Objective - Vital Signs/Intake and Output Vital Signs (last 24 hours): Temp Pulse Resp BP Pulse Ox 98 F 85 19 146/89 94 L 10/16/16 16:17 10/16/16 17:43 10/16/16 16:17 10/16/16 17:43 10/16/16 17:43 Intake and Output: 10/16/16 10/17/16 18:59 06:59 Intake Total 1310 Output Total 1600 Balance -290 - Medications Medications: Current Medications Acetylcysteine (Mucomyst 10% 4ml) 2 ml IH RBID [facility] Last Admin: 10/16/16 19:48 Dose: 2 ml Albuterol/Ipratropium (Duoneb 3 Mg/0.5 Mg (3 Ml) Ud) 3 ml INH RQID [facility] Last Admin: 10/16/16 19:36 Dose: 3 ml Amiodarone HCl (Cordarone) 200 mg PO DAILY [facility] Last Admin: 10/16/16 09:42 Dose: 200 mg Aspirin (Aspirin Chewable) 81 mg PEG DAILY [facility] Last Admin: 10/16/16 09:41 Dose: 81 mg Enoxaparin Sodium (Lovenox) 30 mg SC DAILY [facility] PRN Reason: Protocol Last Admin: 10/16/16 09:44 Dose: 30 mg Ciprofloxacin (Cipro 400mg/200ml Dsw) 200 mls @ 200 mls/hr IVPB Q12 [facility] Last Admin: 10/16/16 09:42 Dose: 200 mls/hr Meropenem 500 mg/ Sodium (Chloride) 100 mls @ 100 mls/hr IVPB Q8 [facility] Last Admin: 10/16/16 16:01 Dose: 100 mls/hr Methylprednisolone 20 mg/ (Sodium Chloride) 50 mls @ 100 mls/hr IVPB Q12 [facility] Lidocaine HCl (Lidocaine Hydrochloride Jelly 2% 5 Ml) 1 ml TOP DAILY PRN PRN Reason: Pain, Mild (1-3) Metoprolol Tartrate (Lopressor) 12.5 mg GT Q12 [facility] Last Admin: 10/16/16 09:44 Dose: 12.5 mg Ondansetron HCl (Zofran Inj) 4 mg IVP Q6 PRN PRN Reason: Nausea/Vomiting Last Admin: 10/15/16 21:16 Dose: 4 mg Pantoprazole Sodium (Protonix Inj) 40 mg IVP DAILY [facility] Last Admin: 10/16/16 09:45 Dose: 40 mg Sucralfate (Carafate Oral Susp) 1 gm PO BID [facility] Last Admin: 10/16/16 15:59 Dose: 1 gm Tramadol HCl (Ultram) 50 mg PO Q6 PRN PRN Reason: Pain, Mild (1-3) Last Admin: 10/16/16 16:11 Dose: 50 mg - Labs Labs: 10/15/16 04:40 10/15/16 04:40 PT 12.2 SECONDS (9.6-11.2) H 10/12/16 14:26 INR 1.17 (0.92-1.08) H 10/12/16 14:26 APTT 31.1 SECONDS (23.3-32.5) 10/12/16 14:26 - Respiratory Exam Respiratory Exam: NORMAL BREATHING PATTERN - Cardiovascular Exam Cardiovascular Exam: REGULAR RHYTHM - GI/Abdominal Exam GI & Abdominal Exam: Normal Bowel Sounds Assessment and Plan - Assessment and Plan (Free Text) Assessment: s/p Acute Respiratory Failure Aspiration?? COPD S/P Klebsiella RLL Pneumonia? S/P L pneumothorax Extubated ABX adjusted ICU Pulmonary ID S/P V-fib/ V-tach 2 to pulmonary dx A-fib CAD S/P CABG Amiodorone Cardiology SMITA/ ?CKD Hx Hyperkalemia etiol ?? Nephrology IVF Cortisol level ?? Chronic chest wall pain Hx Dec oral intake swallowing?? PEG Jevity failed swallowing test s/p + C-diff + Ag -toxin
[2016-10-16] MEDS: methylPREDNISolone 20 MG in Sodium Chloride 0.9% 50 ML IVPB SCH (21:49)
--- NOTE | 2016-10-16 23:53 | CP.PCM.PN ---
Subjective - Date & Time of Evaluation Date of Evaluation: 10/16/16 Time of Evaluation: 14:00 - Subjective Subjective: Patient appears comfortable. Some bleeding last night from gastrostomy. Now site is clean. Objective - Vital Signs/Intake and Output Vital Signs (last 24 hours): Temp Pulse Resp BP Pulse Ox 98 F 83 19 142/69 94 L 10/16/16 16:17 10/16/16 21:44 10/16/16 16:17 10/16/16 21:44 10/16/16 17:43 Intake and Output: 10/16/16 10/17/16 18:59 06:59 Intake Total 1310 Output Total 1600 Balance -290 - Medications Medications: Current Medications Acetylcysteine (Mucomyst 10% 4ml) 2 ml IH RBID [facility] Last Admin: 10/16/16 19:48 Dose: 2 ml Albuterol/Ipratropium (Duoneb 3 Mg/0.5 Mg (3 Ml) Ud) 3 ml INH RQID [facility] Last Admin: 10/16/16 19:36 Dose: 3 ml Amiodarone HCl (Cordarone) 200 mg PO DAILY [facility] Last Admin: 10/16/16 09:42 Dose: 200 mg Aspirin (Aspirin Chewable) 81 mg PEG DAILY [facility] Last Admin: 10/16/16 09:41 Dose: 81 mg Enoxaparin Sodium (Lovenox) 30 mg SC DAILY [facility] PRN Reason: Protocol Last Admin: 10/16/16 09:44 Dose: 30 mg Ciprofloxacin (Cipro 400mg/200ml Dsw) 200 mls @ 200 mls/hr IVPB Q12 [facility] Last Admin: 10/16/16 21:38 Dose: 200 mls/hr Meropenem 500 mg/ Sodium (Chloride) 100 mls @ 100 mls/hr IVPB Q8 [facility] Last Admin: 10/16/16 16:01 Dose: 100 mls/hr Methylprednisolone 20 mg/ (Sodium Chloride) 50 mls @ 100 mls/hr IVPB Q12 [facility] Last Admin: 10/16/16 21:49 Dose: 100 mls/hr Lidocaine HCl (Lidocaine Hydrochloride Jelly 2% 5 Ml) 1 ml TOP DAILY PRN PRN Reason: Pain, Mild (1-3) Metoprolol Tartrate (Lopressor) 12.5 mg GT Q12 [facility] Last Admin: 10/16/16 21:44 Dose: 12.5 mg Ondansetron HCl (Zofran Inj) 4 mg IVP Q6 PRN PRN Reason: Nausea/Vomiting Last Admin: 10/15/16 21:16 Dose: 4 mg Pantoprazole Sodium (Protonix Inj) 40 mg IVP DAILY [facility] Last Admin: 10/16/16 09:45 Dose: 40 mg Sucralfate (Carafate Oral Susp) 1 gm PO BID [facility] Last Admin: 10/16/16 15:59 Dose: 1 gm Tramadol HCl (Ultram) 50 mg PO Q6 PRN PRN Reason: Pain, Mild (1-3) Last Admin: 10/16/16 22:56 Dose: 50 mg - Labs Labs: 10/15/16 04:40 10/15/16 04:40 PT 12.2 SECONDS (9.6-11.2) H 10/12/16 14:26 INR 1.17 (0.92-1.08) H 10/12/16 14:26 APTT 31.1 SECONDS (23.3-32.5) 10/12/16 14:26 - Head Exam Head Exam: ATRAUMATIC - Eye Exam Eye Exam: Normal appearance - ENT Exam ENT Exam: Normal Exam - Respiratory Exam Respiratory Exam: Clear to Ausculation Bilateral - Cardiovascular Exam Cardiovascular Exam: REGULAR RHYTHM - GI/Abdominal Exam GI & Abdominal Exam: Normal Bowel Sounds Additional comments: Gastrotomy site is clean. Manipulated and tightened a little Assessment and Plan (1) Abdominal wall pain Assessment & Plan: Appears better. Daily topical lidocaine administration. Status: Acute
[2016-10-17] MEDS: Meropenem 500 MG in Sodium Chloride 0.9% 100 ML IVPB SCH ×3 (01:27→16:42)
[2016-10-17] MEDS: Sucralfate 1 gm/10 ml Oral Susp UD PO SCH ×5 (02:39→23:00)
[2016-10-17 07:17] LABS: HEMATOCRIT 29.9 % (35.0-51.0); LYMPH # 0.4 K/uL (1.0-4.3); LYMPH % 2.2 % (20.0-40.0); MEAN CELL VOLUME 93.1 fl (80.0-94.0); MEAN CORPUSCULAR HGB CONC 31.2 g/dL (33.0-37.0); MEAN PLATELET VOLUME 9.1 fl (7.2-11.7); MONO # 0.4 K/uL (0.0-0.8); NEUT # 18.4 K/uL (1.8-7.0); NEUT % 95.8 % (50.0-75.0); PLATELET COUNT 206 K/uL (130-400); RED CELL DISTRIBUTION WIDTH 18.1 % (11.5-14.5); WHITE BLOOD COUNT 19.2 K/uL (4.8-10.8)
[2016-10-17 07:36] LABS: BLOOD UREA NITROGEN 64 mg/dl (9-20); CALCIUM 8.9 mg/dL (8.4-10.2); CARBON DIOXIDE 21 mmol/L (22-30); CHLORIDE 109 mmol/L (98-107); GFR AFRICAN-AMERICAN > 60; GLUCOSE,RANDOM 124 mg/dL (75-110); SODIUM 144 mmol/l (132-148)
[2016-10-17 07:51] LABS: POTASSIUM 5.7 MMOL/L (3.6-5.0)
[2016-10-17] MEDS: Acetylcysteine 10% 4 ML IH SCH ×2 (07:53→19:23)
[2016-10-17] MEDS: Albuterol-Ipratrop 3 mg / 0.5 (3 ml) UD INH SCH ×4 (07:54→19:23)
[2016-10-17] MEDS: Enoxaparin 30 mg Syringe SC SCH (08:35)
[2016-10-17] MEDS: Ciprofloxacin 400mg/200ml D5W 200 ML IVPB SCH ×2 (08:40→21:37)
[2016-10-17] MEDS: methylPREDNISolone 20 MG in Sodium Chloride 0.9% 50 ML IVPB SCH (08:41)
[2016-10-17 09:17] LABS: NEUTROPHIL 90 % (42-75); REACTIVE LYMPHOCYTES 2 % (0-0); TOTAL CELLS COUNTED 100
[2016-10-17 09:20] LABS: GIANT PLATELETS PRESENT; LARGE PLATELETS PRESENT
--- NOTE | 2016-10-17 11:27 | CP.PCM.PN ---
Subjective - Date & Time of Evaluation Date of Evaluation: 10/17/16 Time of Evaluation: 08:30 - Subjective Subjective: BREATHING BETTER NO TYPICAL CHEST PAIN Objective - Vital Signs/Intake and Output Vital Signs (last 24 hours): Temp Pulse Resp BP Pulse Ox 98.4 F 84 20 169/85 H 100 10/17/16 08:00 10/17/16 09:00 10/17/16 08:00 10/17/16 08:34 10/17/16 08:00 Intake and Output: 10/17/16 10/17/16 06:59 18:59 Intake Total 1260 Output Total 750 Balance 510 - Medications Medications: Current Medications Acetylcysteine (Mucomyst 10% 4ml) 2 ml IH RBID [facility] Last Admin: 10/17/16 07:53 Dose: 2 ml Albuterol/Ipratropium (Duoneb 3 Mg/0.5 Mg (3 Ml) Ud) 3 ml INH RQID [facility] Last Admin: 10/17/16 07:54 Dose: 3 ml Amiodarone HCl (Cordarone) 200 mg PO DAILY [facility] Last Admin: 10/17/16 08:34 Dose: 200 mg Aspirin (Aspirin Chewable) 81 mg PEG DAILY [facility] Last Admin: 10/17/16 08:34 Dose: 81 mg Enoxaparin Sodium (Lovenox) 30 mg SC DAILY [facility] PRN Reason: Protocol Last Admin: 10/17/16 08:35 Dose: 30 mg Ciprofloxacin (Cipro 400mg/200ml Dsw) 200 mls @ 200 mls/hr IVPB Q12 [facility] Last Admin: 10/17/16 08:40 Dose: 200 mls/hr Meropenem 500 mg/ Sodium (Chloride) 100 mls @ 100 mls/hr IVPB Q8 [facility] Last Admin: 10/17/16 08:40 Dose: 100 mls/hr Methylprednisolone 20 mg/ (Sodium Chloride) 50 mls @ 100 mls/hr IVPB Q12 [facility] Last Admin: 10/17/16 08:41 Dose: 100 mls/hr Lidocaine HCl (Lidocaine Hydrochloride Jelly 2% 5 Ml) 1 ml TOP DAILY PRN PRN Reason: Pain, Mild (1-3) Metoprolol Tartrate (Lopressor) 12.5 mg GT Q12 [facility] Last Admin: 10/17/16 08:34 Dose: 12.5 mg Ondansetron HCl (Zofran Inj) 4 mg IVP Q6 PRN PRN Reason: Nausea/Vomiting Last Admin: 10/15/16 21:16 Dose: 4 mg Pantoprazole Sodium (Protonix Inj) 40 mg IVP DAILY [facility] Last Admin: 10/17/16 08:34 Dose: 40 mg Sucralfate (Carafate Oral Susp) 1 gm PO QID [facility] Last Admin: 10/17/16 08:34 Dose: 1 gm Tramadol HCl (Ultram) 50 mg PO Q6 PRN PRN Reason: Pain, Mild (1-3) Last Admin: 10/17/16 08:39 Dose: 50 mg - Labs Labs: 10/17/16 05:50 10/17/16 05:50 PT 12.2 SECONDS (9.6-11.2) H 10/12/16 14:26 INR 1.17 (0.92-1.08) H 10/12/16 14:26 APTT 31.1 SECONDS (23.3-32.5) 10/12/16 14:26 - Respiratory Exam Respiratory Exam: Decreased Breath Sounds, Rales, Rhonchi - Cardiovascular Exam Cardiovascular Exam: REGULAR RHYTHM, +S1, +S2 Assessment and Plan - Assessment and Plan (Free Text) Assessment: COPD WITH PNEUMONIA CAD ATRIAL FIBRILLATION HISTORY Plan: CONTINUE O2, IV ANTIBIOTICS, ASPIRIN, LOVENOX, METOPROLOL, AMIODARONE
--- NOTE | 2016-10-17 12:02 | CP.PCM.PN ---
Subjective - Date & Time of Evaluation Date of Evaluation: 10/17/16 Time of Evaluation: 11:54 - Subjective Subjective: Interim events reviewed. Labs and CXR reviewed. Patient is awake and alert. Cooperative. Good mood. Has recent expectorated sputum in basin, purulent and thick. Has a strong and congested cough, but has difficulty expectorating. Leukocytosis gradually decreasing, renal function slowly improving. Pharynx is pink and moist. Neck is supple and trachea midline. No visible JVD. No palpable lymphadenopathy. No dullness on percussion of the anterior chest. Dullness is noted at the bases posteriorly. Coarse sonorous rhonchi and medium rales in the bases bilaterally. No audible wheezing or bronchial breathing. Continue current medical regimen. Encouraged deep breathing and coughing. Added PO famotidine for HS (continued acid reflux). Continue aerosol therapy. Objective - Vital Signs/Intake and Output Vital Signs (last 24 hours): Temp Pulse Resp BP Pulse Ox 98.4 F 84 20 169/85 H 100 10/17/16 08:00 10/17/16 09:00 10/17/16 08:00 10/17/16 08:34 10/17/16 08:00 Intake and Output: 10/16/16 10/17/16 23:59 11:59 Intake Total 1160 1260 Output Total 800 750 Balance 360 510 - Medications Medications: Current Medications Acetylcysteine (Mucomyst 10% 4ml) 2 ml IH RBID [facility] Last Admin: 10/17/16 07:53 Dose: 2 ml Albuterol/Ipratropium (Duoneb 3 Mg/0.5 Mg (3 Ml) Ud) 3 ml INH RQID [facility] Last Admin: 10/17/16 11:30 Dose: 3 ml Amiodarone HCl (Cordarone) 200 mg PO DAILY [facility] Last Admin: 10/17/16 08:34 Dose: 200 mg Aspirin (Aspirin Chewable) 81 mg PEG DAILY [facility] Last Admin: 10/17/16 08:34 Dose: 81 mg Enoxaparin Sodium (Lovenox) 30 mg SC DAILY [facility] PRN Reason: Protocol Last Admin: 10/17/16 08:35 Dose: 30 mg Famotidine (Pepcid) 20 mg PO HS [facility] Guaifenesin (Mucinex La) 600 mg PO Q12 [facility] Ciprofloxacin (Cipro 400mg/200ml Dsw) 200 mls @ 200 mls/hr IVPB Q12 [facility] Last Admin: 10/17/16 08:40 Dose: 200 mls/hr Meropenem 500 mg/ Sodium (Chloride) 100 mls @ 100 mls/hr IVPB Q8 [facility] Last Admin: 10/17/16 08:40 Dose: 100 mls/hr Methylprednisolone 20 mg/ (Sodium Chloride) 50 mls @ 100 mls/hr IVPB DAILY [facility] Lidocaine HCl (Lidocaine Hydrochloride Jelly 2% 5 Ml) 1 ml TOP DAILY PRN PRN Reason: Pain, Mild (1-3) Metoprolol Tartrate (Lopressor) 12.5 mg GT Q12 [facility] Last Admin: 10/17/16 08:34 Dose: 12.5 mg Ondansetron HCl (Zofran Inj) 4 mg IVP Q6 PRN PRN Reason: Nausea/Vomiting Last Admin: 10/15/16 21:16 Dose: 4 mg Pantoprazole Sodium (Protonix Inj) 40 mg IVP DAILY [facility] Last Admin: 10/17/16 08:34 Dose: 40 mg Sucralfate (Carafate Oral Susp) 1 gm PO QID [facility] Last Admin: 10/17/16 08:34 Dose: 1 gm Tramadol HCl (Ultram) 50 mg PO Q6 PRN PRN Reason: Pain, Mild (1-3) Last Admin: 10/17/16 08:39 Dose: 50 mg - Labs Labs: 10/17/16 05:50 10/17/16 05:50 PT 12.2 SECONDS (9.6-11.2) H 10/12/16 14:26 INR 1.17 (0.92-1.08) H 10/12/16 14:26 APTT 31.1 SECONDS (23.3-32.5) 10/12/16 14:26 Assessment and Plan (1) Pneumonia Status: Acute (2) Sepsis Status: Acute (3) Respiratory failure with hypercapnia Status: Resolved (4) COPD (chronic obstructive pulmonary disease) Status: Chronic
--- NOTE | 2016-10-17 14:09 | CP.PCM.PN ---
Subjective - Date & Time of Evaluation Date of Evaluation: 10/17/16 Time of Evaluation: 08:00 - Subjective Subjective: less congested more awake NAD wants to get OOB Objective - Vital Signs/Intake and Output Vital Signs (last 24 hours): Temp Pulse Resp BP Pulse Ox 98.4 F 84 20 169/85 H 100 10/17/16 08:00 10/17/16 09:00 10/17/16 08:00 10/17/16 08:34 10/17/16 08:00 Intake and Output: 10/17/16 10/17/16 06:59 18:59 Intake Total 1260 Output Total 750 Balance 510 - Medications Medications: Current Medications Acetylcysteine (Mucomyst 10% 4ml) 2 ml IH RBID [facility] Last Admin: 10/17/16 07:53 Dose: 2 ml Albuterol/Ipratropium (Duoneb 3 Mg/0.5 Mg (3 Ml) Ud) 3 ml INH RQID [facility] Last Admin: 10/17/16 11:30 Dose: 3 ml Amiodarone HCl (Cordarone) 200 mg PO DAILY [facility] Last Admin: 10/17/16 08:34 Dose: 200 mg Aspirin (Aspirin Chewable) 81 mg PEG DAILY [facility] Last Admin: 10/17/16 08:34 Dose: 81 mg Enoxaparin Sodium (Lovenox) 30 mg SC DAILY [facility] PRN Reason: Protocol Last Admin: 10/17/16 08:35 Dose: 30 mg Famotidine (Pepcid) 20 mg PO HS [facility] Guaifenesin (Mucinex La) 600 mg PO Q12 [facility] Ciprofloxacin (Cipro 400mg/200ml Dsw) 200 mls @ 200 mls/hr IVPB Q12 [facility] Last Admin: 10/17/16 08:40 Dose: 200 mls/hr Meropenem 500 mg/ Sodium (Chloride) 100 mls @ 100 mls/hr IVPB Q8 [facility] Last Admin: 10/17/16 08:40 Dose: 100 mls/hr Methylprednisolone 20 mg/ (Sodium Chloride) 50 mls @ 100 mls/hr IVPB DAILY [facility] Lidocaine HCl (Lidocaine Hydrochloride Jelly 2% 5 Ml) 1 ml TOP DAILY PRN PRN Reason: Pain, Mild (1-3) Metoprolol Tartrate (Lopressor) 12.5 mg GT Q12 [facility] Last Admin: 10/17/16 08:34 Dose: 12.5 mg Ondansetron HCl (Zofran Inj) 4 mg IVP Q6 PRN PRN Reason: Nausea/Vomiting Last Admin: 10/15/16 21:16 Dose: 4 mg Pantoprazole Sodium (Protonix Inj) 40 mg IVP DAILY [facility] Last Admin: 10/17/16 08:34 Dose: 40 mg Sucralfate (Carafate Oral Susp) 1 gm PO QID [facility] Last Admin: 10/17/16 08:34 Dose: 1 gm Tramadol HCl (Ultram) 50 mg PO Q6 PRN PRN Reason: Pain, Mild (1-3) Last Admin: 10/17/16 08:39 Dose: 50 mg - Labs Labs: 10/17/16 05:50 10/17/16 05:50 PT 12.2 SECONDS (9.6-11.2) H 10/12/16 14:26 INR 1.17 (0.92-1.08) H 10/12/16 14:26 APTT 31.1 SECONDS (23.3-32.5) 10/12/16 14:26 - Constitutional Appears: Non-toxic, Cachectic, Chronically Ill - Head Exam Head Exam: NORMOCEPHALIC - Eye Exam Eye Exam: PERRL. absent: Scleral icterus - ENT Exam ENT Exam: Mucous Membranes Dry - Neck Exam Neck Exam: absent: Lymphadenopathy - Respiratory Exam Respiratory Exam: Decreased Breath Sounds, Prolonged Expiratory Phase, Rhonchi. absent: Respiratory Distress - Cardiovascular Exam Cardiovascular Exam: REGULAR RHYTHM - GI/Abdominal Exam GI & Abdominal Exam: Distended, Soft - Rectal Exam Rectal Exam: Deferred - Exam Exam: NORMAL INSPECTION - Extremities Exam Extremities Exam: absent: Pedal Edema - Back Exam Back Exam: absent: CVA tenderness (L), CVA tenderness (R) - Neurological Exam Neurological Exam: Alert, Awake, Oriented x3 Assessment and Plan (1) Pneumonia Status: Acute (2) Sepsis Status: Acute (3) COPD (chronic obstructive pulmonary disease) Status: Chronic (4) COPD (chronic obstructive pulmonary disease) with acute bronchitis Status: Acute (5) Atrial fibrillation Status: Acute (6) Atrial fibrillation with RVR Status: Acute
--- NOTE | 2016-10-17 15:33 | RAD ---
HISTORY: pneumonia COMPARISON: Comparison made with chest radiograph dated 10/15/2016. TECHNIQUE: Chest PA and lateral FINDINGS: LUNGS: Mild central pulmonary vascular congestive changes appears slightly improved. Persistent bilateral lower lobe atelectatic and or infiltrate changes with bilateral effusions. . PLEURA: No significant pleural effusion identified. No pneumothorax apparent. CARDIOVASCULAR: Heart remains enlarged. Sternotomy wires unchanged OSSEOUS STRUCTURES: No significant abnormalities. VISUALIZED UPPER ABDOMEN: Normal. OTHER FINDINGS: None. IMPRESSION: Mild central pulmonary vascular congestive changes slightly improved. Persistent bilateral lower lobe atelectatic and or infiltrate changes with bilateral effusions
--- NOTE | 2016-10-17 16:24 | CP.PCM.PN ---
Subjective - Date & Time of Evaluation Date of Evaluation: 10/17/16 Time of Evaluation: 13:15 - Subjective Subjective: seen and examined feels ok no n/v Objective - Vital Signs/Intake and Output Vital Signs (last 24 hours): Temp Pulse Resp BP Pulse Ox 98.0 F 83 18 167/87 H 99 10/17/16 16:07 10/17/16 16:07 10/17/16 16:07 10/17/16 16:07 10/17/16 16:07 Intake and Output: 10/17/16 10/17/16 06:59 18:59 Intake Total 1260 Output Total 750 Balance 510 - Medications Medications: Current Medications Acetylcysteine (Mucomyst 10% 4ml) 2 ml IH RBID [facility] Last Admin: 10/17/16 07:53 Dose: 2 ml Albuterol/Ipratropium (Duoneb 3 Mg/0.5 Mg (3 Ml) Ud) 3 ml INH RQID [facility] Last Admin: 10/17/16 15:44 Dose: 3 ml Amiodarone HCl (Cordarone) 200 mg PO DAILY [facility] Last Admin: 10/17/16 08:34 Dose: 200 mg Aspirin (Aspirin Chewable) 81 mg PEG DAILY [facility] Last Admin: 10/17/16 08:34 Dose: 81 mg Enoxaparin Sodium (Lovenox) 30 mg SC DAILY [facility] PRN Reason: Protocol Last Admin: 10/17/16 08:35 Dose: 30 mg Famotidine (Pepcid) 20 mg PO HS [facility] Guaifenesin (Mucinex La) 600 mg PO Q12 [facility] Ciprofloxacin (Cipro 400mg/200ml Dsw) 200 mls @ 200 mls/hr IVPB Q12 [facility] Last Admin: 10/17/16 08:40 Dose: 200 mls/hr Meropenem 500 mg/ Sodium (Chloride) 100 mls @ 100 mls/hr IVPB Q8 [facility] Last Admin: 10/17/16 08:40 Dose: 100 mls/hr Methylprednisolone 20 mg/ (Sodium Chloride) 50 mls @ 100 mls/hr IVPB DAILY [facility] Lidocaine HCl (Lidocaine Hydrochloride Jelly 2% 5 Ml) 1 ml TOP DAILY PRN PRN Reason: Pain, Mild (1-3) Metoprolol Tartrate (Lopressor) 12.5 mg GT Q12 [facility] Last Admin: 10/17/16 08:34 Dose: 12.5 mg Ondansetron HCl (Zofran Inj) 4 mg IVP Q6 PRN PRN Reason: Nausea/Vomiting Last Admin: 10/15/16 21:16 Dose: 4 mg Pantoprazole Sodium (Protonix Inj) 40 mg IVP DAILY [facility] Last Admin: 10/17/16 08:34 Dose: 40 mg Sucralfate (Carafate Oral Susp) 1 gm PO QID [facility] Last Admin: 10/17/16 14:11 Dose: 1 gm Tramadol HCl (Ultram) 50 mg PO Q6 PRN PRN Reason: Pain, Mild (1-3) Last Admin: 10/17/16 08:39 Dose: 50 mg - Labs Labs: 10/17/16 05:50 10/17/16 05:50 PT 12.2 SECONDS (9.6-11.2) H 10/12/16 14:26 INR 1.17 (0.92-1.08) H 10/12/16 14:26 APTT 31.1 SECONDS (23.3-32.5) 10/12/16 14:26 - Constitutional Appears: Non-toxic - Head Exam Head Exam: ATRAUMATIC - Eye Exam Eye Exam: Normal appearance - Respiratory Exam Respiratory Exam: NORMAL BREATHING PATTERN - Cardiovascular Exam Cardiovascular Exam: +S1, +S2 - GI/Abdominal Exam GI & Abdominal Exam: Normal Bowel Sounds Additional comments: +peg - Extremities Exam Additional comments: no edema - Neurological Exam Neurological Exam: Alert, Oriented x3 - Psychiatric Exam Psychiatric exam: Normal Affect - Skin Skin Exam: Normal Color Assessment and Plan - Assessment and Plan (Free Text) Assessment: ARF/ ANemia/ Hyperkalemia / PNA plan: lissett resolving w/ hydration k elevated today - previously w/ hyporenin/hypoaldo but given his hypertension i 'm hesitant to start fludrocortisone. I will start thiazide diuretic 12.5 mg daily and see if he tolerates my conern being his volume status and whether he can eat and drink enough. I would also suggest endocrine consult - he had an am cortisol in aug that was low - and would recommend that they do a cortisol stimulation to assess for primary adrenal insufficiency. This may be challenge to do now on this admission due to him being on steroids at this point.
--- NOTE | 2016-10-17 19:27 | CP.PCM.PN ---
Subjective - Date & Time of Evaluation Date of Evaluation: 10/17/16 Time of Evaluation: 22:22 - Subjective Subjective: Doing well Consult notes appreciated Objective - Vital Signs/Intake and Output Vital Signs (last 24 hours): Temp Pulse Resp BP Pulse Ox 98.0 F 83 18 167/87 H 99 10/17/16 16:07 10/17/16 16:07 10/17/16 16:07 10/17/16 16:07 10/17/16 16:07 - Medications Medications: Current Medications Acetylcysteine (Mucomyst 10% 4ml) 2 ml IH RBID [facility] Last Admin: 10/17/16 19:23 Dose: 2 ml Albuterol/Ipratropium (Duoneb 3 Mg/0.5 Mg (3 Ml) Ud) 3 ml INH RQID [facility] Last Admin: 10/17/16 19:23 Dose: 3 ml Amiodarone HCl (Cordarone) 200 mg PO DAILY [facility] Last Admin: 10/17/16 08:34 Dose: 200 mg Aspirin (Aspirin Chewable) 81 mg PEG DAILY [facility] Last Admin: 10/17/16 08:34 Dose: 81 mg Enoxaparin Sodium (Lovenox) 30 mg SC DAILY [facility] PRN Reason: Protocol Last Admin: 10/17/16 08:35 Dose: 30 mg Famotidine (Pepcid) 20 mg PO HS [facility] Guaifenesin (Mucinex La) 600 mg PO Q12 [facility] Hydrochlorothiazide (Microzide) 12.5 mg PO DAILY [facility] Last Admin: 10/17/16 19:12 Dose: 12.5 mg Ciprofloxacin (Cipro 400mg/200ml Dsw) 200 mls @ 200 mls/hr IVPB Q12 [facility] Last Admin: 10/17/16 08:40 Dose: 200 mls/hr Meropenem 500 mg/ Sodium (Chloride) 100 mls @ 100 mls/hr IVPB Q8 [facility] Last Admin: 10/17/16 16:42 Dose: 100 mls/hr Methylprednisolone 20 mg/ (Sodium Chloride) 50 mls @ 100 mls/hr IVPB DAILY [facility] Lidocaine HCl (Lidocaine Hydrochloride Jelly 2% 5 Ml) 1 ml TOP DAILY PRN PRN Reason: Pain, Mild (1-3) Metoprolol Tartrate (Lopressor) 12.5 mg GT Q12 [facility] Last Admin: 10/17/16 08:34 Dose: 12.5 mg Ondansetron HCl (Zofran Inj) 4 mg IVP Q6 PRN PRN Reason: Nausea/Vomiting Last Admin: 10/15/16 21:16 Dose: 4 mg Pantoprazole Sodium (Protonix Inj) 40 mg IVP DAILY [facility] Last Admin: 10/17/16 08:34 Dose: 40 mg Sucralfate (Carafate Oral Susp) 1 gm PO QID [facility] Last Admin: 10/17/16 16:42 Dose: 1 gm Tramadol HCl (Ultram) 50 mg PO Q6 PRN PRN Reason: Pain, Mild (1-3) Last Admin: 10/17/16 16:47 Dose: 50 mg - Labs Labs: 10/17/16 05:50 10/17/16 05:50 PT 12.2 SECONDS (9.6-11.2) H 10/12/16 14:26 INR 1.17 (0.92-1.08) H 10/12/16 14:26 APTT 31.1 SECONDS (23.3-32.5) 10/12/16 14:26 - Respiratory Exam Respiratory Exam: NORMAL BREATHING PATTERN - Cardiovascular Exam Cardiovascular Exam: REGULAR RHYTHM - GI/Abdominal Exam GI & Abdominal Exam: Normal Bowel Sounds Assessment and Plan - Assessment and Plan (Free Text) Assessment: s/p Acute Respiratory Failure Aspiration?? COPD S/P Klebsiella RLL Pneumonia? S/P L pneumothorax Pulmonary ID S/P V-fib/ V-tach 2 to pulmonary dx A-fib CAD S/P CABG Amiodorone Cardiology SMITA/ ?CKD Hx Hyperkalemia etiol ?? Adrenal gland ? K+ today is elevated ?hemolyzed- will repeat Nephrology IVF Cortisol level ?? Endo consult Chronic chest wall pain Hx Dec oral intake swallowing?? PEG Jevity GI s/p + C-diff + Ag -toxin
[2016-10-17 19:49] LABS: BLOOD UREA NITROGEN 59 mg/dl (9-20); CALCIUM 8.9 mg/dL (8.4-10.2); CARBON DIOXIDE 21 mmol/L (22-30); CHLORIDE 107 mmol/L (98-107); GFR AFRICAN-AMERICAN > 60; GLUCOSE,RANDOM 156 mg/dL (75-110); POTASSIUM 4.8 MMOL/L (3.6-5.0); SODIUM 142 mmol/l (132-148)
[2016-10-17] MEDS: guaiFENesin 600 mg ER Tab PO SCH (21:46)
[2016-10-18] MEDS: Meropenem 500 MG in Sodium Chloride 0.9% 100 ML IVPB SCH ×3 (00:19→17:13)
[2016-10-18 06:47] LABS: BASO % 0.1 % (0.0-2.0); EOS % 0.1 % (0.0-4.0); HEMATOCRIT 29.3 % (35.0-51.0); LYMPH # 1.4 K/uL (1.0-4.3); LYMPH % 7.2 % (20.0-40.0); MEAN CELL VOLUME 92.8 fl (80.0-94.0); MEAN CORPUSCULAR HEMOGLOBIN 29.7 pg (27.0-31.0); MEAN PLATELET VOLUME 9.5 fl (7.2-11.7); MONO % 5.4 % (0.0-10.0); NEUT # 16.5 K/uL (1.8-7.0); NEUT % 87.2 % (50.0-75.0); RED CELL DISTRIBUTION WIDTH 17.6 % (11.5-14.5); WHITE BLOOD COUNT 18.9 K/uL (4.8-10.8)
[2016-10-18 06:51] LABS: BLOOD UREA NITROGEN 57 mg/dl (9-20); CALCIUM 8.7 mg/dL (8.4-10.2); CARBON DIOXIDE 23 mmol/L (22-30); CHLORIDE 108 mmol/L (98-107); GFR AFRICAN-AMERICAN > 60; GLUCOSE,RANDOM 80 mg/dL (75-110); POTASSIUM 4.6 MMOL/L (3.6-5.0); SODIUM 143 mmol/l (132-148)
[2016-10-18] MEDS: Acetylcysteine 10% 4 ML IH SCH ×2 (08:27→19:56)
[2016-10-18] MEDS: Albuterol-Ipratrop 3 mg / 0.5 (3 ml) UD INH SCH ×4 (08:27→19:56)
[2016-10-18] MEDS: Ciprofloxacin 400mg/200ml D5W 200 ML IVPB SCH ×2 (09:03→21:00)
[2016-10-18] MEDS: Sucralfate 1 gm/10 ml Oral Susp UD PO SCH ×4 (09:04→21:54)
[2016-10-18] MEDS: guaiFENesin 600 mg ER Tab PO SCH ×2 (09:05→21:54)
[2016-10-18] MEDS: Enoxaparin 30 mg Syringe SC SCH (09:05)
[2016-10-18] MEDS: methylPREDNISolone 20 MG in Sodium Chloride 0.9% 50 ML IVPB SCH (11:30)
--- NOTE | 2016-10-18 12:52 | CP.PCM.PN ---
Subjective - Date & Time of Evaluation Date of Evaluation: 10/18/16 Time of Evaluation: 12:49 - Subjective Subjective: Continues to improve. Asleep but easily awakens. Witnessed expectoration of yellow/garcia purulent sputum yesterday and again this morning. WBC 18.9, chemistries okay. Remains afebrile, well oxygenated. C/O pain in both feet. Acid reflux symptoms lessened last night. Neck is supple and trachea midline. Pharynx is pink and MM moist. No dullness on percussion, no subcut emphysema. Breath sounds are present bilaterally, diminished. Loud sonorous rhonchi are present in both lower lobes. Medium rales in the lower lobes posteriorly. No audible wheezing or bronchial breathing. Continue present medical regimen. Podiatry consult requested. Physical therapy. May transfer to regular medical floor. Objective - Vital Signs/Intake and Output Vital Signs (last 24 hours): Temp Pulse Resp BP Pulse Ox 97.6 F 97 H 18 140/75 100 10/18/16 12:00 10/18/16 12:00 10/18/16 12:00 10/18/16 12:00 10/18/16 12:00 - Medications Medications: Current Medications Acetylcysteine (Mucomyst 10% 4ml) 2 ml IH RBID [facility] Last Admin: 10/18/16 08:27 Dose: 2 ml Albuterol/Ipratropium (Duoneb 3 Mg/0.5 Mg (3 Ml) Ud) 3 ml INH RQID [facility] Last Admin: 10/18/16 11:18 Dose: 3 ml Amiodarone HCl (Cordarone) 200 mg PO DAILY [facility] Last Admin: 10/18/16 09:06 Dose: 200 mg Aspirin (Aspirin Chewable) 81 mg PEG DAILY [facility] Last Admin: 10/18/16 09:04 Dose: 81 mg Famotidine (Pepcid) 20 mg PO HS [facility] Last Admin: 10/17/16 21:47 Dose: 20 mg Guaifenesin (Mucinex La) 600 mg PO Q12 [facility] Last Admin: 10/18/16 09:05 Dose: 600 mg Hydrochlorothiazide (Microzide) 12.5 mg PO DAILY [facility] Last Admin: 10/18/16 09:04 Dose: 12.5 mg Ciprofloxacin (Cipro 400mg/200ml Dsw) 200 mls @ 200 mls/hr IVPB Q12 [facility] Last Admin: 10/18/16 09:03 Dose: 200 mls/hr Meropenem 500 mg/ Sodium (Chloride) 100 mls @ 100 mls/hr IVPB Q8 [facility] Last Admin: 10/18/16 09:03 Dose: 100 mls/hr Methylprednisolone 20 mg/ (Sodium Chloride) 50 mls @ 100 mls/hr IVPB DAILY [facility] Last Admin: 10/18/16 11:30 Dose: 100 mls/hr Lidocaine HCl (Lidocaine Hydrochloride Jelly 2% 5 Ml) 1 ml TOP DAILY PRN PRN Reason: Pain, Mild (1-3) Metoprolol Tartrate (Lopressor) 12.5 mg GT Q12 [facility] Last Admin: 10/18/16 09:06 Dose: 12.5 mg Ondansetron HCl (Zofran Inj) 4 mg IVP Q6 PRN PRN Reason: Nausea/Vomiting Last Admin: 10/17/16 21:58 Dose: 4 mg Pantoprazole Sodium (Protonix Inj) 40 mg IVP DAILY [facility] Last Admin: 10/18/16 09:07 Dose: 40 mg Sucralfate (Carafate Oral Susp) 1 gm PO QID [facility] Last Admin: 10/18/16 12:25 Dose: 1 gm Tramadol HCl (Ultram) 50 mg PO Q6 PRN PRN Reason: Pain, Mild (1-3) Last Admin: 10/18/16 09:13 Dose: 50 mg - Labs Labs: 10/18/16 04:30 10/18/16 04:30 PT 12.2 SECONDS (9.6-11.2) H 10/12/16 14:26 INR 1.17 (0.92-1.08) H 10/12/16 14:26 APTT 31.1 SECONDS (23.3-32.5) 10/12/16 14:26 Assessment and Plan (1) Pneumonia Status: Acute (2) Sepsis Status: Acute (3) Respiratory failure with hypercapnia Status: Resolved (4) COPD (chronic obstructive pulmonary disease) Status: Chronic
--- NOTE | 2016-10-18 12:59 | CP.PCM.PN ---
Subjective - Date & Time of Evaluation Date of Evaluation: 10/18/16 Time of Evaluation: 11:00 - Subjective Subjective: Sleeping. Appears comfortable Objective - Vital Signs/Intake and Output Vital Signs (last 24 hours): Temp Pulse Resp BP Pulse Ox 97.6 F 97 H 18 140/75 100 10/18/16 12:00 10/18/16 12:00 10/18/16 12:00 10/18/16 12:00 10/18/16 12:00 - Medications Medications: Current Medications Acetylcysteine (Mucomyst 10% 4ml) 2 ml IH RBID [facility] Last Admin: 10/18/16 08:27 Dose: 2 ml Albuterol/Ipratropium (Duoneb 3 Mg/0.5 Mg (3 Ml) Ud) 3 ml INH RQID [facility] Last Admin: 10/18/16 11:18 Dose: 3 ml Amiodarone HCl (Cordarone) 200 mg PO DAILY [facility] Last Admin: 10/18/16 09:06 Dose: 200 mg Aspirin (Aspirin Chewable) 81 mg PEG DAILY [facility] Last Admin: 10/18/16 09:04 Dose: 81 mg Famotidine (Pepcid) 20 mg PO HS [facility] Last Admin: 10/17/16 21:47 Dose: 20 mg Guaifenesin (Mucinex La) 600 mg PO Q12 [facility] Last Admin: 10/18/16 09:05 Dose: 600 mg Hydrochlorothiazide (Microzide) 12.5 mg PO DAILY [facility] Last Admin: 10/18/16 09:04 Dose: 12.5 mg Ciprofloxacin (Cipro 400mg/200ml Dsw) 200 mls @ 200 mls/hr IVPB Q12 [facility] Last Admin: 10/18/16 09:03 Dose: 200 mls/hr Meropenem 500 mg/ Sodium (Chloride) 100 mls @ 100 mls/hr IVPB Q8 [facility] Last Admin: 10/18/16 09:03 Dose: 100 mls/hr Methylprednisolone 20 mg/ (Sodium Chloride) 50 mls @ 100 mls/hr IVPB DAILY [facility] Last Admin: 10/18/16 11:30 Dose: 100 mls/hr Lidocaine HCl (Lidocaine Hydrochloride Jelly 2% 5 Ml) 1 ml TOP DAILY PRN PRN Reason: Pain, Mild (1-3) Metoprolol Tartrate (Lopressor) 12.5 mg GT Q12 [facility] Last Admin: 10/18/16 09:06 Dose: 12.5 mg Ondansetron HCl (Zofran Inj) 4 mg IVP Q6 PRN PRN Reason: Nausea/Vomiting Last Admin: 10/17/16 21:58 Dose: 4 mg Pantoprazole Sodium (Protonix Inj) 40 mg IVP DAILY [facility] Last Admin: 10/18/16 09:07 Dose: 40 mg Sucralfate (Carafate Oral Susp) 1 gm PO QID [facility] Last Admin: 10/18/16 12:25 Dose: 1 gm Tramadol HCl (Ultram) 50 mg PO Q6 PRN PRN Reason: Pain, Mild (1-3) Last Admin: 10/18/16 09:13 Dose: 50 mg - Labs Labs: 10/18/16 04:30 10/18/16 04:30 PT 12.2 SECONDS (9.6-11.2) H 10/12/16 14:26 INR 1.17 (0.92-1.08) H 10/12/16 14:26 APTT 31.1 SECONDS (23.3-32.5) 10/12/16 14:26 Assessment and Plan - Assessment and Plan (Free Text) Assessment: SMITA resolved Hx/o hyperkalemia. K+ is controlled Pneumonia Plan: Continue current Mx & monitor renal function
--- NOTE | 2016-10-18 23:52 | CP.PCM.PN ---
Subjective - Date & Time of Evaluation Date of Evaluation: 10/18/16 Time of Evaluation: 22:22 - Subjective Subjective: Above noted Objective - Vital Signs/Intake and Output Vital Signs (last 24 hours): Temp Pulse Resp BP Pulse Ox 97.7 F 80 18 138/76 98 10/18/16 21:00 10/18/16 22:08 10/18/16 21:00 10/18/16 21:00 10/18/16 21:00 - Medications Medications: Current Medications Acetaminophen (Tylenol 325mg Tab) 650 mg PO ONCE PRN PRN Reason: Pain, moderate (4-7) Last Admin: 10/18/16 18:58 Dose: 650 mg Acetaminophen (Tylenol 325mg Tab) 650 mg PO Q4 PRN PRN Reason: Pain, moderate (4-7) Last Admin: 10/18/16 22:02 Dose: 650 mg Acetylcysteine (Mucomyst 10% 4ml) 2 ml IH RBID [facility] Last Admin: 10/18/16 19:56 Dose: 2 ml Albuterol/Ipratropium (Duoneb 3 Mg/0.5 Mg (3 Ml) Ud) 3 ml INH RQID [facility] Last Admin: 10/18/16 19:56 Dose: 3 ml Amiodarone HCl (Cordarone) 200 mg PO DAILY [facility] Last Admin: 10/18/16 09:06 Dose: 200 mg Aspirin (Aspirin Chewable) 81 mg PEG DAILY [facility] Last Admin: 10/18/16 09:04 Dose: 81 mg Famotidine (Pepcid) 20 mg PO HS [facility] Last Admin: 10/18/16 21:54 Dose: 20 mg Guaifenesin (Mucinex La) 600 mg PO Q12 [facility] Last Admin: 10/18/16 21:54 Dose: 600 mg Hydrochlorothiazide (Microzide) 12.5 mg PO DAILY [facility] Last Admin: 10/18/16 09:04 Dose: 12.5 mg Meropenem 500 mg/ Sodium (Chloride) 100 mls @ 100 mls/hr IVPB Q8 [facility] Last Admin: 10/18/16 17:13 Dose: 100 mls/hr Methylprednisolone 20 mg/ (Sodium Chloride) 50 mls @ 100 mls/hr IVPB DAILY [facility] Stop: 10/19/16 23:59 Last Admin: 10/18/16 11:30 Dose: 100 mls/hr Lidocaine HCl (Lidocaine Hydrochloride Jelly 2% 5 Ml) 1 ml TOP DAILY PRN PRN Reason: Pain, Mild (1-3) Metoprolol Tartrate (Lopressor) 12.5 mg GT Q12 [facility] Last Admin: 10/18/16 22:08 Dose: 12.5 mg Ondansetron HCl (Zofran Inj) 4 mg IVP Q6 PRN PRN Reason: Nausea/Vomiting Last Admin: 10/17/16 21:58 Dose: 4 mg Pantoprazole Sodium (Protonix Inj) 40 mg IVP DAILY [facility] Last Admin: 10/18/16 09:07 Dose: 40 mg Sucralfate (Carafate Oral Susp) 1 gm PO QID [facility] Last Admin: 10/18/16 21:54 Dose: 1 gm - Labs Labs: 10/18/16 04:30 10/18/16 04:30 PT 12.2 SECONDS (9.6-11.2) H 10/12/16 14:26 INR 1.17 (0.92-1.08) H 10/12/16 14:26 APTT 31.1 SECONDS (23.3-32.5) 10/12/16 14:26 - Respiratory Exam Respiratory Exam: NORMAL BREATHING PATTERN - Cardiovascular Exam Cardiovascular Exam: REGULAR RHYTHM - GI/Abdominal Exam GI & Abdominal Exam: Normal Bowel Sounds Assessment and Plan - Assessment and Plan (Free Text) Assessment: s/p Acute Respiratory Failure Aspiration?? Pneumonia COPD Hx Klebsiella + ESBL E coli Pneumonia Hx L pneumothorax Pulmonary ID S/P V-fib/ V-tach 2 to pulmonary dx A-fib CAD S/P CABG Amiodorone Cardiology SMITA/ ?CKD Hx Hyperkalemia etiol ?? Adrenal gland ? K+ wnl Nephrology IVF Cortisol level ?? Endo consult Chronic chest wall pain Hx Dec oral intake swallowing?? PEG Jevity GI s/p + C-diff + Ag -toxin
[2016-10-19] MEDS: Meropenem 500 MG in Sodium Chloride 0.9% 100 ML IVPB SCH ×3 (00:43→16:10)
[2016-10-19] MEDS ORDERED: Sucralfate 1 gm/10 ml Oral Susp UD PO STA (02:20)
[2016-10-19] MEDS: Acetylcysteine 10% 4 ML IH SCH ×2 (07:35→19:43)
[2016-10-19] MEDS: Albuterol-Ipratrop 3 mg / 0.5 (3 ml) UD INH SCH ×4 (07:35→19:43)
[2016-10-19] MEDS: guaiFENesin 600 mg ER Tab PO SCH ×2 (08:59→22:11)
[2016-10-19] MEDS: methylPREDNISolone 20 MG in Sodium Chloride 0.9% 50 ML IVPB SCH (09:03)
[2016-10-19] MEDS: Sucralfate 1 gm/10 ml Oral Susp UD PO SCH ×4 (09:08→22:12)
--- NOTE | 2016-10-19 12:15 | CP.PCM.PN ---
Subjective - Date & Time of Evaluation Date of Evaluation: 10/19/16 Time of Evaluation: 11:45 - Subjective Subjective: FEELS A LITTLE BETTER BREATHING BETTER Objective - Vital Signs/Intake and Output Vital Signs (last 24 hours): Temp Pulse Resp BP Pulse Ox 98 F 80 20 160/78 H 96 10/19/16 08:00 10/19/16 09:00 10/19/16 08:00 10/19/16 09:00 10/19/16 08:00 Intake and Output: 10/19/16 10/19/16 06:59 18:59 Intake Total 740 Balance 740 - Medications Medications: Current Medications Acetaminophen (Tylenol 325mg Tab) 650 mg PO ONCE PRN PRN Reason: Pain, moderate (4-7) Last Admin: 10/19/16 10:49 Dose: 650 mg Acetaminophen (Tylenol 325mg Tab) 650 mg PO Q4 PRN PRN Reason: Pain, moderate (4-7) Last Admin: 10/19/16 04:07 Dose: 650 mg Acetylcysteine (Mucomyst 10% 4ml) 2 ml IH RBID [facility] Last Admin: 10/19/16 07:35 Dose: 2 ml Albuterol/Ipratropium (Duoneb 3 Mg/0.5 Mg (3 Ml) Ud) 3 ml INH RQID [facility] Last Admin: 10/19/16 11:41 Dose: 3 ml Amiodarone HCl (Cordarone) 200 mg PO DAILY [facility] Last Admin: 10/19/16 09:00 Dose: 200 mg Aspirin (Aspirin Chewable) 81 mg PEG DAILY [facility] Last Admin: 10/19/16 09:00 Dose: 81 mg Famotidine (Pepcid) 20 mg PO HS [facility] Last Admin: 10/18/16 21:54 Dose: 20 mg Guaifenesin (Mucinex La) 600 mg PO Q12 [facility] Last Admin: 10/19/16 08:59 Dose: 600 mg Hydrochlorothiazide (Microzide) 12.5 mg PO DAILY [facility] Last Admin: 10/19/16 08:59 Dose: 12.5 mg Meropenem 500 mg/ Sodium (Chloride) 100 mls @ 100 mls/hr IVPB Q8 [facility] Last Admin: 10/19/16 09:01 Dose: 100 mls/hr Methylprednisolone 20 mg/ (Sodium Chloride) 50 mls @ 100 mls/hr IVPB DAILY [facility] Stop: 10/19/16 23:59 Last Admin: 10/19/16 09:03 Dose: 100 mls/hr Lidocaine HCl (Lidocaine Hydrochloride Jelly 2% 5 Ml) 1 ml TOP DAILY PRN PRN Reason: Pain, Mild (1-3) Metoprolol Tartrate (Lopressor) 12.5 mg GT Q12 [facility] Last Admin: 10/19/16 09:00 Dose: 12.5 mg Ondansetron HCl (Zofran Inj) 4 mg IVP Q6 PRN PRN Reason: Nausea/Vomiting Last Admin: 10/19/16 00:44 Dose: 4 mg Pantoprazole Sodium (Protonix Inj) 40 mg IVP DAILY [facility] Last Admin: 10/19/16 09:01 Dose: 40 mg Sucralfate (Carafate Oral Susp) 1 gm PO QID [facility] Last Admin: 10/19/16 09:08 Dose: 1 gm - Labs Labs: 10/18/16 04:30 10/18/16 04:30 PT 12.2 SECONDS (9.6-11.2) H 10/12/16 14:26 INR 1.17 (0.92-1.08) H 10/12/16 14:26 APTT 31.1 SECONDS (23.3-32.5) 10/12/16 14:26 - Respiratory Exam Respiratory Exam: Rales, Rhonchi - Cardiovascular Exam Cardiovascular Exam: REGULAR RHYTHM, +S1, +S2 - Additional Findings Additional findings: DEICER TESTER NSR Assessment and Plan - Assessment and Plan (Free Text) Assessment: PNEUMONIA CAD Plan: CONTINUE O2, ANTIBIOTICS, ASPIRIN, AMIODARONE, METOPROLOL
--- NOTE | 2016-10-19 13:35 | CP.PCM.CON ---
History of Present Illness - History of Present Illness History of Present Illness: 71 year old male patient with PMH significant for CAD, CHF, HTN, Afib, hypercholesterolemia, COPD was seen at bedside regarding unstageable ulcerations to bilateral heels. Patient is well known to Dr. Mae [facility] for his feet ulcers. This time the patient is admitted for hyperkalemia (K+ 5.9) and persistent coughing. Patient states that the ulcerations to his feet are chronic and has been there for more than 4 months. Patient states that he visited Dr. Mae in his office 1 month ago. patient denies of any N/V/F/C or SOB today. Past Patient History - Infectious Disease Hx of Infectious Diseases: None - Tetanus Immunizations Tetanus Immunization: Unknown - Past Medical History & Family History Past Medical History?: Yes - Past Social History Smoking Status: Former Smoker Chewing Tobacco Use: No Cigar Use: No Alcohol: None Drugs: Denies Home Situation {Lives}: Alone - CARDIAC Hx Atrial Fibrillation: Yes Hx Cardia Arrhythmia: Yes Hx Congestive Heart Failure: Yes Hx Hypercholesterolemia: Yes Hx Hypertension: Yes Hx Peripheral Edema: Yes - PULMONARY Hx Asthma: Yes Hx Bronchitis: Yes Hx Chronic Obstructive Pulmonary Disease (COPD): Yes Hx Emphysema: Yes Hx Pneumonia: Yes - NEUROLOGICAL Hx Neurological Disorder: No - HEENT Hx Cataracts: Yes (right eye) - RENAL Hx Chronic Kidney Disease: No - ENDOCRINE/METABOLIC Hx Diabetes Mellitus Type 2: Yes Hx Hypothyroidism: No - HEMATOLOGICAL/ONCOLOGICAL Hx Anemia: Yes Hx Human Immunodeficiency Virus (HIV): No - INTEGUMENTARY Hx Psoriasis: Yes - MUSCULOSKELETAL/RHEUMATOLOGICAL Hx Falls: No - GASTROINTESTINAL Hx Diverticulitis: Yes - GENITOURINARY/GYNECOLOGICAL Hx Prostate Problems: Yes - PSYCHIATRIC Hx Substance Use: No - SURGICAL HISTORY Hx Coronary Artery Bypass Graft: Yes (1994) Hx Coronary Stent: Yes (2000) Other/Comment: SUB-TOTAL GASTRECTOMY FOR PUD WITH VENTRAL HERNIA REPAIRS SUBSEQUENTLY - ANESTHESIA Hx Anesthesia: Yes Hx Anesthesia Reactions: No Hx Malignant Hyperthermia: No Meds Allergies/Adverse Reactions: Allergies Allergy/AdvReac Type Severity Reaction Status Date / Time gemfibrozil [From Lopid] Allergy RASH Verified 10/12/16 14:03 morphine Allergy SHORTNESS Verified 10/12/16 14:03 OF BREATH - Medications Medications: Current Medications Acetaminophen (Tylenol 325mg Tab) 650 mg PO ONCE PRN PRN Reason: Pain, moderate (4-7) Last Admin: 10/19/16 10:49 Dose: 650 mg Acetaminophen (Tylenol 325mg Tab) 650 mg PO Q4 PRN PRN Reason: Pain, moderate (4-7) Last Admin: 10/19/16 04:07 Dose: 650 mg Acetylcysteine (Mucomyst 10% 4ml) 2 ml IH RBID [facility] Last Admin: 10/19/16 07:35 Dose: 2 ml Albuterol/Ipratropium (Duoneb 3 Mg/0.5 Mg (3 Ml) Ud) 3 ml INH RQID [facility] Last Admin: 10/19/16 11:41 Dose: 3 ml Amiodarone HCl (Cordarone) 200 mg PO DAILY [facility] Last Admin: 10/19/16 09:00 Dose: 200 mg Aspirin (Aspirin Chewable) 81 mg PEG DAILY [facility] Last Admin: 10/19/16 09:00 Dose: 81 mg Famotidine (Pepcid) 20 mg PO HS [facility] Last Admin: 10/18/16 21:54 Dose: 20 mg Guaifenesin (Mucinex La) 600 mg PO Q12 [facility] Last Admin: 10/19/16 08:59 Dose: 600 mg Hydrochlorothiazide (Microzide) 12.5 mg PO DAILY [facility] Last Admin: 10/19/16 08:59 Dose: 12.5 mg Meropenem 500 mg/ Sodium (Chloride) 100 mls @ 100 mls/hr IVPB Q8 [facility] Last Admin: 10/19/16 09:01 Dose: 100 mls/hr Methylprednisolone 20 mg/ (Sodium Chloride) 50 mls @ 100 mls/hr IVPB DAILY [facility] Stop: 10/19/16 23:59 Last Admin: 10/19/16 09:03 Dose: 100 mls/hr Lidocaine HCl (Lidocaine Hydrochloride Jelly 2% 5 Ml) 1 ml TOP DAILY PRN PRN Reason: Pain, Mild (1-3) Metoprolol Tartrate (Lopressor) 12.5 mg GT Q12 [facility] Last Admin: 10/19/16 09:00 Dose: 12.5 mg Ondansetron HCl (Zofran Inj) 4 mg IVP Q6 PRN PRN Reason: Nausea/Vomiting Last Admin: 10/19/16 00:44 Dose: 4 mg Pantoprazole Sodium (Protonix Inj) 40 mg IVP DAILY [facility] Last Admin: 10/19/16 09:01 Dose: 40 mg Sucralfate (Carafate Oral Susp) 1 gm PO QID [facility] Last Admin: 10/19/16 09:08 Dose: 1 gm Physical Exam - Constitutional Appears: Well, Non-toxic, No Acute Distress - Extremities Exam Additional comments: Bilateral Lower extremity focused exam: DERM: Unstageable pressure ulcer noted to the plantar aspect of left heel measuring approximately 7.0 cm x 6.0 cm on the left, and 4 cm x 3 cm on the right, no fluctuance, no erythema, no acute sings infection, dry eschar to bilateral heels appear to be stable with no macerations. Healed excoriations noted to the medial and lateral malleolus of left ankle, as well as anterior aspect of right and left ankle. VASC: DP and PT pulses non-palpable b/l. Skin temperature warm to cool b/l. CFT is sluggish. NEURO: Unable to asses ORTHO: hammering of digits 2-5 left and 2,3,5 on right - Neurological Exam Neurological exam: Alert, Oriented x3 - Psychiatric Exam Psychiatric exam: Normal Affect, Normal Mood - Skin Skin Exam: Normal Color, Warm Results - Vital Signs Recent Vital Signs: Last Vital Signs Temp 98.3 F 10/19/16 12:16 Pulse 92 H 10/19/16 12:16 Resp 18 10/19/16 12:16 BP 123/77 10/19/16 12:16 Pulse Ox 96 10/19/16 12:16 - Labs Result Diagrams: 10/18/16 04:30 10/18/16 04:30 Labs: Laboratory Results - last 24 hr 10/18/16 10/18/16 10/19/16 16:37 21:14 04:41 POC Glucose (mg/dL) 101 127 H 67 10/19/16 10/19/16 06:22 11:27 POC Glucose (mg/dL) 103 92 Assessment & Plan - Assessment and Plan (Free Text) Assessment: 70 year old male with chronic unstagable pressure ulcers to heels bilaterally Plan: Patient seen and evaluated at bedside Discussed with attending Dr. Mae Chart, labs, vitals reviewed: afebrile Stable dressing changes with Betadine and DSD Apply lac-hydrin to surrounding skin c/w prevalon offloading boots to heels at all times when in bed. Stable at this time per podiatry Podiatry will continue to monitor while he remains in house
--- NOTE | 2016-10-19 14:38 | CP.PCM.PN ---
Subjective - Date & Time of Evaluation Date of Evaluation: 10/19/16 Time of Evaluation: 08:00 - Subjective Subjective: improving slowly afebrile nad weak easily arousable, coherent and aware of his surroundings wants to get oob to chair WBC slowly decreasing cultures neg but had ESBL sepsis last admission Objective - Vital Signs/Intake and Output Vital Signs (last 24 hours): Temp Pulse Resp BP Pulse Ox 98.3 F 92 H 18 123/77 96 10/19/16 12:16 10/19/16 12:16 10/19/16 12:16 10/19/16 12:16 10/19/16 12:16 Intake and Output: 10/19/16 10/19/16 06:59 18:59 Intake Total 740 Balance 740 - Medications Medications: Current Medications Acetaminophen (Tylenol 325mg Tab) 650 mg PO ONCE PRN PRN Reason: Pain, moderate (4-7) Last Admin: 10/19/16 10:49 Dose: 650 mg Acetaminophen (Tylenol 325mg Tab) 650 mg PO Q4 PRN PRN Reason: Pain, moderate (4-7) Last Admin: 10/19/16 04:07 Dose: 650 mg Acetylcysteine (Mucomyst 10% 4ml) 2 ml IH RBID [facility] Last Admin: 10/19/16 07:35 Dose: 2 ml Albuterol/Ipratropium (Duoneb 3 Mg/0.5 Mg (3 Ml) Ud) 3 ml INH RQID [facility] Last Admin: 10/19/16 11:41 Dose: 3 ml Amiodarone HCl (Cordarone) 200 mg PO DAILY [facility] Last Admin: 10/19/16 09:00 Dose: 200 mg Aspirin (Aspirin Chewable) 81 mg PEG DAILY [facility] Last Admin: 10/19/16 09:00 Dose: 81 mg Famotidine (Pepcid) 20 mg PO HS [facility] Last Admin: 10/18/16 21:54 Dose: 20 mg Guaifenesin (Mucinex La) 600 mg PO Q12 [facility] Last Admin: 10/19/16 08:59 Dose: 600 mg Hydrochlorothiazide (Microzide) 12.5 mg PO DAILY [facility] Last Admin: 10/19/16 08:59 Dose: 12.5 mg Meropenem 500 mg/ Sodium (Chloride) 100 mls @ 100 mls/hr IVPB Q8 [facility] Last Admin: 10/19/16 09:01 Dose: 100 mls/hr Methylprednisolone 20 mg/ (Sodium Chloride) 50 mls @ 100 mls/hr IVPB DAILY [facility] Stop: 10/19/16 23:59 Last Admin: 10/19/16 09:03 Dose: 100 mls/hr Lidocaine HCl (Lidocaine Hydrochloride Jelly 2% 5 Ml) 1 ml TOP DAILY PRN PRN Reason: Pain, Mild (1-3) Metoprolol Tartrate (Lopressor) 12.5 mg GT Q12 [facility] Last Admin: 10/19/16 09:00 Dose: 12.5 mg Ondansetron HCl (Zofran Inj) 4 mg IVP Q6 PRN PRN Reason: Nausea/Vomiting Last Admin: 10/19/16 00:44 Dose: 4 mg Pantoprazole Sodium (Protonix Inj) 40 mg IVP DAILY [facility] Last Admin: 10/19/16 09:01 Dose: 40 mg Sucralfate (Carafate Oral Susp) 1 gm PO QID [facility] Last Admin: 10/19/16 13:48 Dose: 1 gm - Labs Labs: 10/18/16 04:30 10/18/16 04:30 PT 12.2 SECONDS (9.6-11.2) H 10/12/16 14:26 INR 1.17 (0.92-1.08) H 10/12/16 14:26 APTT 31.1 SECONDS (23.3-32.5) 10/12/16 14:26 - Constitutional Appears: Non-toxic, Chronically Ill - Head Exam Head Exam: NORMOCEPHALIC - Eye Exam Eye Exam: PERRL. absent: Scleral icterus - ENT Exam ENT Exam: Mucous Membranes Dry - Neck Exam Neck Exam: absent: Lymphadenopathy - Respiratory Exam Respiratory Exam: Decreased Breath Sounds, Prolonged Expiratory Phase, Rhonchi - Cardiovascular Exam Cardiovascular Exam: REGULAR RHYTHM, +S1, +S2 - GI/Abdominal Exam GI & Abdominal Exam: Distended, Soft. absent: Tenderness - Rectal Exam Rectal Exam: Deferred - Exam Exam: NORMAL INSPECTION - Extremities Exam Extremities Exam: absent: Calf Tenderness, Pedal Edema - Back Exam Back Exam: absent: CVA tenderness (L), CVA tenderness (R) - Neurological Exam Neurological Exam: Alert, Awake, Oriented x3 - Psychiatric Exam Psychiatric exam: Depressed - Skin Skin Exam: Dry Assessment and Plan (1) Pneumonia Status: Acute (2) Sepsis Status: Acute (3) COPD (chronic obstructive pulmonary disease) Status: Chronic (4) COPD (chronic obstructive pulmonary disease) with acute bronchitis Status: Acute (5) Atrial fibrillation Status: Acute (6) Atrial fibrillation with RVR Status: Acute
--- NOTE | 2016-10-19 16:35 | CP.PCM.PN ---
Subjective - Date & Time of Evaluation Date of Evaluation: 10/19/16 Time of Evaluation: 22:22 - Subjective Subjective: Improving Labs better Objective - Vital Signs/Intake and Output Vital Signs (last 24 hours): Temp Pulse Resp BP Pulse Ox 98.3 F 92 H 18 123/77 96 10/19/16 12:16 10/19/16 12:16 10/19/16 12:16 10/19/16 12:16 10/19/16 12:16 Intake and Output: 10/19/16 10/19/16 06:59 18:59 Intake Total 740 Balance 740 - Medications Medications: Current Medications Acetaminophen (Tylenol 325mg Tab) 650 mg PO ONCE PRN PRN Reason: Pain, moderate (4-7) Last Admin: 10/19/16 10:49 Dose: 650 mg Acetaminophen (Tylenol 325mg Tab) 650 mg PO Q4 PRN PRN Reason: Pain, moderate (4-7) Last Admin: 10/19/16 04:07 Dose: 650 mg Acetylcysteine (Mucomyst 10% 4ml) 2 ml IH RBID [facility] Last Admin: 10/19/16 07:35 Dose: 2 ml Albuterol/Ipratropium (Duoneb 3 Mg/0.5 Mg (3 Ml) Ud) 3 ml INH RQID [facility] Last Admin: 10/19/16 16:20 Dose: 3 ml Amiodarone HCl (Cordarone) 200 mg PO DAILY [facility] Last Admin: 10/19/16 09:00 Dose: 200 mg Aspirin (Aspirin Chewable) 81 mg PEG DAILY [facility] Last Admin: 10/19/16 09:00 Dose: 81 mg Famotidine (Pepcid) 20 mg PO HS [facility] Last Admin: 10/18/16 21:54 Dose: 20 mg Guaifenesin (Mucinex La) 600 mg PO Q12 [facility] Last Admin: 10/19/16 08:59 Dose: 600 mg Hydrochlorothiazide (Microzide) 12.5 mg PO DAILY [facility] Last Admin: 10/19/16 08:59 Dose: 12.5 mg Meropenem 500 mg/ Sodium (Chloride) 100 mls @ 100 mls/hr IVPB Q8 [facility] Last Admin: 10/19/16 16:10 Dose: 100 mls/hr Methylprednisolone 20 mg/ (Sodium Chloride) 50 mls @ 100 mls/hr IVPB DAILY [facility] Stop: 10/19/16 23:59 Last Admin: 10/19/16 09:03 Dose: 100 mls/hr Lidocaine HCl (Lidocaine Hydrochloride Jelly 2% 5 Ml) 1 ml TOP DAILY PRN PRN Reason: Pain, Mild (1-3) Metoprolol Tartrate (Lopressor) 12.5 mg GT Q12 [facility] Last Admin: 10/19/16 09:00 Dose: 12.5 mg Ondansetron HCl (Zofran Inj) 4 mg IVP Q6 PRN PRN Reason: Nausea/Vomiting Last Admin: 10/19/16 00:44 Dose: 4 mg Pantoprazole Sodium (Protonix Inj) 40 mg IVP DAILY [facility] Last Admin: 10/19/16 09:01 Dose: 40 mg Sucralfate (Carafate Oral Susp) 1 gm PO QID [facility] Last Admin: 10/19/16 16:12 Dose: 1 gm - Labs Labs: 10/18/16 04:30 10/18/16 04:30 PT 12.2 SECONDS (9.6-11.2) H 10/12/16 14:26 INR 1.17 (0.92-1.08) H 10/12/16 14:26 APTT 31.1 SECONDS (23.3-32.5) 10/12/16 14:26 - Respiratory Exam Respiratory Exam: NORMAL BREATHING PATTERN - Cardiovascular Exam Cardiovascular Exam: REGULAR RHYTHM - GI/Abdominal Exam GI & Abdominal Exam: Normal Bowel Sounds Assessment and Plan - Assessment and Plan (Free Text) Assessment: s/p Acute Respiratory Failure Aspiration?? Pneumonia COPD Hx Klebsiella + ESBL E coli Pneumonia Hx L pneumothorax Pulmonary ID S/P V-fib/ V-tach 2 to pulmonary dx A-fib CAD S/P CABG Amiodorone Cardiology SMITA/ ?CKD Hx Hyperkalemia etiol ?? Adrenal insufficiency ? K+ wnl Nephrology IVF Cortisol level ?? Endo consult Chronic chest wall pain Hx Dec oral intake swallowing?? PEG Jevity GI s/p + C-diff + Ag -toxin
--- NOTE | 2016-10-19 20:23 | CP.PCM.PN ---
Subjective - Date & Time of Evaluation Date of Evaluation: 10/19/16 Time of Evaluation: 20:19 - Subjective Subjective: Patient reports frequent bowel movements. Objective - Vital Signs/Intake and Output Vital Signs (last 24 hours): Temp Pulse Resp BP Pulse Ox 98.3 F 80 20 153/78 H 96 10/19/16 16:00 10/19/16 16:00 10/19/16 16:00 10/19/16 16:00 10/19/16 16:00 - Medications Medications: Current Medications Acetaminophen (Tylenol 325mg Tab) 650 mg PO ONCE PRN PRN Reason: Pain, moderate (4-7) Last Admin: 10/19/16 10:49 Dose: 650 mg Acetaminophen (Tylenol 325mg Tab) 650 mg PO Q4 PRN PRN Reason: Pain, moderate (4-7) Last Admin: 10/19/16 04:07 Dose: 650 mg Acetylcysteine (Mucomyst 10% 4ml) 2 ml IH RBID [facility] Last Admin: 10/19/16 19:43 Dose: 2 ml Albuterol/Ipratropium (Duoneb 3 Mg/0.5 Mg (3 Ml) Ud) 3 ml INH RQID [facility] Last Admin: 10/19/16 19:43 Dose: 3 ml Amiodarone HCl (Cordarone) 200 mg PO DAILY [facility] Last Admin: 10/19/16 09:00 Dose: 200 mg Aspirin (Aspirin Chewable) 81 mg PEG DAILY [facility] Last Admin: 10/19/16 09:00 Dose: 81 mg Famotidine (Pepcid) 20 mg PO HS [facility] Last Admin: 10/18/16 21:54 Dose: 20 mg Guaifenesin (Mucinex La) 600 mg PO Q12 [facility] Last Admin: 10/19/16 08:59 Dose: 600 mg Hydrochlorothiazide (Microzide) 12.5 mg PO DAILY [facility] Last Admin: 10/19/16 08:59 Dose: 12.5 mg Meropenem 500 mg/ Sodium (Chloride) 100 mls @ 100 mls/hr IVPB Q8 [facility] Last Admin: 10/19/16 16:10 Dose: 100 mls/hr Methylprednisolone 20 mg/ (Sodium Chloride) 50 mls @ 100 mls/hr IVPB DAILY [facility] Stop: 10/19/16 23:59 Last Admin: 10/19/16 09:03 Dose: 100 mls/hr Lidocaine HCl (Lidocaine Hydrochloride Jelly 2% 5 Ml) 1 ml TOP DAILY PRN PRN Reason: Pain, Mild (1-3) Metoprolol Tartrate (Lopressor) 12.5 mg GT Q12 [facility] Last Admin: 10/19/16 09:00 Dose: 12.5 mg Ondansetron HCl (Zofran Inj) 4 mg IVP Q6 PRN PRN Reason: Nausea/Vomiting Last Admin: 10/19/16 00:44 Dose: 4 mg Sucralfate (Carafate Oral Susp) 1 gm PO QID [facility] Last Admin: 10/19/16 16:12 Dose: 1 gm - Labs Labs: 10/18/16 04:30 10/18/16 04:30 PT 12.2 SECONDS (9.6-11.2) H 10/12/16 14:26 INR 1.17 (0.92-1.08) H 10/12/16 14:26 APTT 31.1 SECONDS (23.3-32.5) 10/12/16 14:26 - Head Exam Head Exam: ATRAUMATIC - Eye Exam Eye Exam: Normal appearance Pupil Exam: PERRL - ENT Exam ENT Exam: Mucous Membranes Moist - Neck Exam Neck Exam: Full ROM - Respiratory Exam Respiratory Exam: Clear to Ausculation Bilateral - Cardiovascular Exam Cardiovascular Exam: REGULAR RHYTHM - GI/Abdominal Exam GI & Abdominal Exam: Normal Bowel Sounds Assessment and Plan (1) Abdominal wall pain Status: Acute (2) Diarrhea Assessment & Plan: Stool for C diff ordered. Patient very concerned that feeedings will give him diarrhea over night. Will hold feedings from 11 PM tonight until 7 AM in the morning. Status: Acute
--- NOTE | 2016-10-19 21:18 | CON ---
DATE: 10/19/2016 ROOM: 408 HISTORY OF PRESENT ILLNESS: This is a 71-year-old male admitted here with congestive heart failure a nd acute exacerbation of COPD with concomitant pneumonia and is now being referred for endocrine eval uation for possible adrenal insufficiency. PAST MEDICAL HISTORY: As mentioned above, history of coronary artery disease and underlying cardiomy opathy with previous admissions for congestive heart failure as noted. Also, history of chronic ____ _, also history of chronic atrial fibrillation and has been on oral anticoagulation therapy in the [facility], history of hyperkalemia and there is a question of possible adrenal insufficiency, but the patien t has not been on any kind of long-term oral steroid therapy as [facility] FAMILY HISTORY: Positive for hypertension and heart disease. SOCIAL HISTORY: The patient has supportive family. No known substance use. REVIEW OF SYSTEMS: As mentioned above, admits to generalized body weakness with easy fatigability an d tiredness and suboptimal energy level. Also admits to episodic dizziness and lightheadedness, wors e on the day of admission. Also, admits to precordial chest pain with progressive shortness of breat h initially on exertion and then at rest with paroxysmal nocturnal dyspnea. His oral intake has been variable and suboptimal with occasional dyspepsia and habitual constipation. PHYSICAL EXAMINATION: GENERAL: An average built male in no apparent distress. VITAL SIGNS: Blood pressure of 150/90, pulse of 70 beats per minute and regular, temperature 98, res pirations 20. Height is 5 feet 7, weight is 136 pounds. HEENT: Head normocephalic. Eyes anicteric with pink conjunctivae. Fundoscopy not possible at this time. Ears, nose and throat otherwise normal. NECK: Supple. Thyroid gland is normal size. No carotid bruits or any cervical adenopathy. CARDIOPULMONARY: Some adynamic precordium. S1, S2 is rapid and regular. LUNGS: Clear to auscultation. ABDOMEN: Flat, soft with positive bowel sounds. EXTREMITIES: No peripheral edema. Pulses are +2 bilaterally. LABORATORY DATA: The hematology showed: WBC is 18.9, hemoglobin of 9.4, hematocrit of 29.3, MCV 92, platelets 215. The chemistry showed a BUN of 57, sodium 143, potassium 4.6, chloride 108, CO2 of 23 , glucose 80 and creatinine 1.1. The initial potassium was 4.4 with an albumin of 3.3 and a proBNP o f 23,100. ASSESSMENT: This is a 71-year-old male with congestive heart failure and acute exacerbation of COPD, currently on IV steroid therapy at this time as given and is now being referred for evaluation of po ssible adrenal insufficiency. PLAN OF MANAGEMENT: It will be quite difficult at this time to do a Cortrosyn or ACTH stimulation te st as the patient is currently on IV steroid therapy as given. We will obtain a plasma ACTH and a se rum cortisol level at this time, but the possibility of the so-called secondary hypoadrenalism is mor e plausible if the patient indeed was on long-term steroid therapy for management of COPD. We will o btain serial chemistries and supplement accordingly as needed. We will taper down his IV steroids as his clinical condition improves and switch him over to oral steroid therapy and would be able to bet ter assess the patient's adrenal status on the outpatient when he is either off steroids or on a very low dose maintenance oral steroid therapy as noted. We will follow. Anabella Sebastian MD cc: [id number] TT: 10/19/2016 21:18:26 Confirmation # [id number] Dictation # [id number] antoinette
[2016-10-20] MEDS: Meropenem 500 MG in Sodium Chloride 0.9% 100 ML IVPB SCH ×3 (00:51→16:19)
[2016-10-20 07:53] LABS: ALB/GLOB RATIO 0.9 (1.0-2.1); ALKALINE PHOSPHATASE 96 U/L (38-126); ALT/SGPT 63 U/L (21-72); AST/SGOT 45 U/L (17-59); BILIRUBIN,TOTAL 0.7 mg/dl (0.2-1.3); BLOOD UREA NITROGEN 44 mg/dl (9-20); CALCIUM 9.1 mg/dL (8.4-10.2); CARBON DIOXIDE 26 mmol/L (22-30); CHLORIDE 104 mmol/L (98-107); GFR AFRICAN-AMERICAN > 60; GLUCOSE,RANDOM 83 mg/dL (75-110); POTASSIUM 4.2 MMOL/L (3.6-5.0); SODIUM 142 mmol/l (132-148); TOTAL PROTEIN 5.6 G/DL (6.3-8.2)
[2016-10-20] MEDS: Acetylcysteine 10% 4 ML IH SCH ×2 (08:08→19:09)
[2016-10-20] MEDS: Albuterol-Ipratrop 3 mg / 0.5 (3 ml) UD INH SCH ×4 (08:08→19:09)
--- NOTE | 2016-10-20 08:10 | CP.PCM.PN ---
Subjective - Date & Time of Evaluation Date of Evaluation: 10/20/16 Time of Evaluation: 07:00 - Subjective Subjective: 71 year old male with PMHx significant for CAD, CHF, HTN, Afib, hypercholesterolemia, COPD was seen at bedside regarding unstageable ulcerations to bilateral heels. Patient denies any acute events overnight. Denies any pain. Denies n/v/f/c/sob/cp. Objective - Vital Signs/Intake and Output Vital Signs (last 24 hours): Temp Pulse Resp BP Pulse Ox 98.3 F 77 20 164/85 H 99 10/20/16 05:00 10/20/16 05:00 10/20/16 05:00 10/20/16 05:00 10/20/16 05:00 - Medications Medications: Current Medications Acetaminophen (Tylenol 325mg Tab) 650 mg PO ONCE PRN PRN Reason: Pain, moderate (4-7) Last Admin: 10/19/16 22:06 Dose: 650 mg Acetaminophen (Tylenol 325mg Tab) 650 mg PO Q4 PRN PRN Reason: Pain, moderate (4-7) Last Admin: 10/19/16 04:07 Dose: 650 mg Acetylcysteine (Mucomyst 10% 4ml) 2 ml IH RBID [facility] Last Admin: 10/20/16 08:08 Dose: 2 ml Albuterol/Ipratropium (Duoneb 3 Mg/0.5 Mg (3 Ml) Ud) 3 ml INH RQID [facility] Last Admin: 10/20/16 08:08 Dose: 3 ml Amiodarone HCl (Cordarone) 200 mg PO DAILY [facility] Last Admin: 10/19/16 09:00 Dose: 200 mg Aspirin (Aspirin Chewable) 81 mg PEG DAILY [facility] Last Admin: 10/19/16 09:00 Dose: 81 mg Famotidine (Pepcid) 20 mg PO HS [facility] Last Admin: 10/19/16 22:11 Dose: 20 mg Guaifenesin (Mucinex La) 600 mg PO Q12 [facility] Last Admin: 10/19/16 22:11 Dose: 600 mg Hydrochlorothiazide (Microzide) 12.5 mg PO DAILY [facility] Last Admin: 10/19/16 08:59 Dose: 12.5 mg Meropenem 500 mg/ Sodium (Chloride) 100 mls @ 100 mls/hr IVPB Q8 [facility] Last Admin: 10/20/16 00:51 Dose: 100 mls/hr Lidocaine HCl (Lidocaine Hydrochloride Jelly 2% 5 Ml) 1 ml TOP DAILY PRN PRN Reason: Pain, Mild (1-3) Metoprolol Tartrate (Lopressor) 12.5 mg GT Q12 [facility] Last Admin: 10/19/16 22:10 Dose: 12.5 mg Ondansetron HCl (Zofran Inj) 4 mg IVP Q6 PRN PRN Reason: Nausea/Vomiting Last Admin: 10/19/16 00:44 Dose: 4 mg Sucralfate (Carafate Oral Susp) 1 gm PO QID [facility] Last Admin: 10/19/16 22:12 Dose: 1 gm - Labs Labs: 10/18/16 04:30 10/20/16 06:10 PT 12.2 SECONDS (9.6-11.2) H 10/12/16 14:26 INR 1.17 (0.92-1.08) H 10/12/16 14:26 APTT 31.1 SECONDS (23.3-32.5) 10/12/16 14:26 - Constitutional Appears: Non-toxic, No Acute Distress - Extremities Exam Additional comments: VASC: DP and PT pulses non-palpable b/l. Skin temperature warm to cool b/l. CFT is sluggish. DERM: Unstageable pressure ulcer noted to the plantar aspect of left heel measuring approximately 7.0 cm x 6.0 cm on the left, and 4 cm x 3 cm on the right, no fluctuance, no erythema, no acute sings infection, dry eschar to bilateral heels appear to be stable with no macerations. Healed excoriations noted to the medial and lateral malleolus of left ankle, as well as anterior aspect of right and left ankle. NEURO: Unable to asses ORTHO: hammering of digits 2-5 left and 2,3,5 on right - Neurological Exam Neurological Exam: Alert, Awake, Oriented x3 - Psychiatric Exam Psychiatric exam: Normal Affect, Normal Mood Assessment and Plan - Assessment and Plan (Free Text) Assessment: 70 year old male with chronic unstageable pressure ulcers to heels bilaterally Plan: Patient seen and evaluated at bedside Discussed with attending Dr. Mae Chart, labs, vitals reviewed Dressing changes with Betadine and DSD Apply lac-hydrin to surrounding skin Offloading boots to be worn at all times while patient is in bed Stable at this time per podiatry Podiatry will continue to monitor while he remains in house
[2016-10-20] MEDS: Sucralfate 1 gm/10 ml Oral Susp UD PO SCH ×4 (08:57→21:51)
[2016-10-20] MEDS: guaiFENesin 600 mg ER Tab PO SCH ×2 (09:00→21:49)
--- NOTE | 2016-10-20 10:42 | CP.PCM.PN ---
Subjective - Date & Time of Evaluation Date of Evaluation: 10/20/16 Time of Evaluation: 10:28 - Subjective Subjective: Interim events have been reviewed. Patient claims to be feeling relatively well. Still has some scattered pains in chest wall and back. Vital signs have been stable, he remains afebrile, well oxygenated. Nasal canula not in the nose, SpO2 95% on exam. Congested cough remains, minimal sputum being expectorated. No CBC this morning. Last CXR 3 days ago. No dullness on chest percussion, no subcut emphysema. Breath sounds are present bilaterally with coarse rhonchi posteriorly in both lungs. Rhonchi clear in large part when coached to cough. No wheezes or bronchial breath sounds. Repeat CXR requested. Good candidate to resume PT. Repeat CBC requested. Will resume Spiriva once daily and use albuterol as PRN only starting in AM.. IF CXR is improving and procalcitonin is negative we can probably stop antibiotics and discharge to [facility]. Objective - Vital Signs/Intake and Output Vital Signs (last 24 hours): Temp Pulse Resp BP Pulse Ox 97.8 F 80 18 154/84 H 98 10/20/16 08:00 10/20/16 08:58 10/20/16 08:00 10/20/16 08:58 10/20/16 08:00 - Medications Medications: Current Medications Acetaminophen (Tylenol 325mg Tab) 650 mg PO ONCE PRN PRN Reason: Pain, moderate (4-7) Last Admin: 10/20/16 09:13 Dose: 650 mg Acetaminophen (Tylenol 325mg Tab) 650 mg PO Q4 PRN PRN Reason: Pain, moderate (4-7) Last Admin: 10/19/16 04:07 Dose: 650 mg Acetylcysteine (Mucomyst 10% 4ml) 2 ml IH RBID [facility] Last Admin: 10/20/16 08:08 Dose: 2 ml Albuterol/Ipratropium (Duoneb 3 Mg/0.5 Mg (3 Ml) Ud) 3 ml INH RQID [facility] Last Admin: 10/20/16 08:08 Dose: 3 ml Amiodarone HCl (Cordarone) 200 mg PO DAILY [facility] Last Admin: 10/20/16 08:57 Dose: 200 mg Aspirin (Aspirin Chewable) 81 mg PEG DAILY [facility] Last Admin: 10/20/16 08:57 Dose: 81 mg Famotidine (Pepcid) 20 mg PO HS [facility] Last Admin: 10/19/16 22:11 Dose: 20 mg Guaifenesin (Mucinex La) 600 mg PO Q12 [facility] Last Admin: 10/20/16 09:00 Dose: 600 mg Hydrochlorothiazide (Microzide) 12.5 mg PO DAILY [facility] Last Admin: 10/20/16 08:59 Dose: 12.5 mg Meropenem 500 mg/ Sodium (Chloride) 100 mls @ 100 mls/hr IVPB Q8 [facility] Last Admin: 10/20/16 08:59 Dose: 100 mls/hr Lidocaine HCl (Lidocaine Hydrochloride Jelly 2% 5 Ml) 1 ml TOP DAILY PRN PRN Reason: Pain, Mild (1-3) Metoprolol Tartrate (Lopressor) 12.5 mg GT Q12 [facility] Last Admin: 10/20/16 08:58 Dose: 12.5 mg Ondansetron HCl (Zofran Inj) 4 mg IVP Q6 PRN PRN Reason: Nausea/Vomiting Last Admin: 10/19/16 00:44 Dose: 4 mg Sucralfate (Carafate Oral Susp) 1 gm PO QID [facility] Last Admin: 10/20/16 08:57 Dose: 1 gm - Labs Labs: 10/18/16 04:30 10/20/16 06:10 PT 12.2 SECONDS (9.6-11.2) H 10/12/16 14:26 INR 1.17 (0.92-1.08) H 10/12/16 14:26 APTT 31.1 SECONDS (23.3-32.5) 10/12/16 14:26 Assessment and Plan (1) Pneumonia Status: Acute (2) Sepsis Status: Acute (3) Respiratory failure with hypercapnia Status: Resolved (4) COPD (chronic obstructive pulmonary disease) Status: Chronic
--- NOTE | 2016-10-20 13:12 | CP.PCM.PN ---
Subjective - Date & Time of Evaluation Date of Evaluation: 10/20/16 Time of Evaluation: 11:00 - Subjective Subjective: NO TYPICAL CHEST PAIN BREATHING BETTER Objective - Vital Signs/Intake and Output Vital Signs (last 24 hours): Temp Pulse Resp BP Pulse Ox 97.5 F L 69 18 137/72 96 10/20/16 12:16 10/20/16 12:16 10/20/16 12:16 10/20/16 12:16 10/20/16 12:16 - Medications Medications: Current Medications Acetaminophen (Tylenol 325mg Tab) 650 mg PO ONCE PRN PRN Reason: Pain, moderate (4-7) Last Admin: 10/20/16 09:13 Dose: 650 mg Acetaminophen (Tylenol 325mg Tab) 650 mg PO Q4 PRN PRN Reason: Pain, moderate (4-7) Last Admin: 10/19/16 04:07 Dose: 650 mg Acetylcysteine (Mucomyst 10% 4ml) 2 ml IH RBID [facility] Last Admin: 10/20/16 08:08 Dose: 2 ml Albuterol Sulfate (Albuterol 0.083% Inhal Mary (2.5 Mg/3 Ml) Ud) 2.5 mg INH RQ4 PRN PRN Reason: Shortness of Breath Albuterol/Ipratropium (Duoneb 3 Mg/0.5 Mg (3 Ml) Ud) 3 ml INH RQID [facility] Stop: 10/20/16 23:59 Last Admin: 10/20/16 11:51 Dose: 3 ml Amiodarone HCl (Cordarone) 200 mg PO DAILY [facility] Last Admin: 10/20/16 08:57 Dose: 200 mg Aspirin (Aspirin Chewable) 81 mg PEG DAILY [facility] Last Admin: 10/20/16 08:57 Dose: 81 mg Famotidine (Pepcid) 20 mg PO HS [facility] Last Admin: 10/19/16 22:11 Dose: 20 mg Guaifenesin (Mucinex La) 600 mg PO Q12 [facility] Last Admin: 10/20/16 09:00 Dose: 600 mg Hydrochlorothiazide (Microzide) 12.5 mg PO DAILY [facility] Last Admin: 10/20/16 08:59 Dose: 12.5 mg Meropenem 500 mg/ Sodium (Chloride) 100 mls @ 100 mls/hr IVPB Q8 [facility] Last Admin: 10/20/16 08:59 Dose: 100 mls/hr Lidocaine HCl (Lidocaine Hydrochloride Jelly 2% 5 Ml) 1 ml TOP DAILY PRN PRN Reason: Pain, Mild (1-3) Metoprolol Tartrate (Lopressor) 12.5 mg GT Q12 [facility] Last Admin: 10/20/16 08:58 Dose: 12.5 mg Ondansetron HCl (Zofran Inj) 4 mg IVP Q6 PRN PRN Reason: Nausea/Vomiting Last Admin: 10/19/16 00:44 Dose: 4 mg Sucralfate (Carafate Oral Susp) 1 gm PO QID [facility] Last Admin: 10/20/16 12:16 Dose: 1 gm Tiotropium [place] (Spiriva) 18 mcg INH DAILY [facility] - Labs Labs: 10/18/16 04:30 10/20/16 06:10 PT 12.2 SECONDS (9.6-11.2) H 10/12/16 14:26 INR 1.17 (0.92-1.08) H 10/12/16 14:26 APTT 31.1 SECONDS (23.3-32.5) 10/12/16 14:26 - Respiratory Exam Respiratory Exam: Clear to Ausculation Bilateral - Cardiovascular Exam Cardiovascular Exam: REGULAR RHYTHM, +S1, +S2 - Additional Findings 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
--- NOTE | 2016-10-20 14:58 | RAD ---
HISTORY: pneumonia COMPARISON: Comparison chest 10/17/2016 TECHNIQUE: Chest PA and lateral FINDINGS: LUNGS: Persistent but improved pulmonary venous congestive changes with of mild residual lower lobe alveolar-type infiltrates and small effusions. PLEURA: No pneumothorax apparent. CARDIOVASCULAR: Cardiomegaly. OSSEOUS STRUCTURES: Mild multilevel degenerative spondylosis of the thoracic spine. Mild degenerative osteoarthritis both shoulder girdles. VISUALIZED UPPER ABDOMEN: Normal. OTHER FINDINGS: None. IMPRESSION: . Persistent but improved pulmonary venous congestive changes with of mild residual lower lobe alveolar-type infiltrates and small effusions.
--- NOTE | 2016-10-20 15:14 | PN ---
DATE: 10/20/2016 ROOM: 411 SUBJECTIVE: This is a 71-year-old male with recent acute exacerbation of COPD and started on IV ster oid therapy and is now being followed closely for metabolic management. He has actually been taken o ff IV steroids today as noted. His latest chemistries showed a BUN of 44, sodium 142, potassium 4.2, chloride 104, CO2 of 26, glucose 83 and creatinine 1.1. His hemoglobin A1c is 5.8%. His glucose va lues have ranged from 95-107 and 119 mg/dL. The serum cortisol level is pending at this time. The T SH is 1.40. He remains clinically and biochemically euthyroid at this time and also clinically, euad renal. The cortisol levels are pending and the possibility of secondary hypoadrenalism has yet to be determined. We will continue the serial chemistries and supplement accordingly as needed. We will also hold off further oral steroid replacement therapy pending the availability of the serum cortisol level as ordered. We will follow and advise accordingly. Anabella Sebastian MD cc: [id number] TT: 10/20/2016 15:13:40 Confirmation # [id number] Dictation # [id number] sn
[2016-10-20 16:10] LABS: HEMATOCRIT 32.5 % (35.0-51.0); MEAN CELL VOLUME 92.7 fl (80.0-94.0); MEAN CORPUSCULAR HEMOGLOBIN 29.6 pg (27.0-31.0); MEAN CORPUSCULAR HGB CONC 31.9 g/dL (33.0-37.0); RED CELL DISTRIBUTION WIDTH 17.4 % (11.5-14.5); WHITE BLOOD COUNT 12.6 K/uL (4.8-10.8)
[2016-10-20 16:44] LABS: CORTISOL AM 7.4 ug/dL (4.46-22.7)
--- NOTE | 2016-10-20 21:02 | CP.PCM.PN ---
Subjective - Date & Time of Evaluation Date of Evaluation: 10/20/16 Time of Evaluation: 22:22 - Subjective Subjective: Above noted Objective - Vital Signs/Intake and Output Vital Signs (last 24 hours): Temp Pulse Resp BP Pulse Ox 97.7 F 78 18 122/75 99 10/20/16 19:31 10/20/16 20:42 10/20/16 19:31 10/20/16 20:42 10/20/16 19:31 - Medications Medications: Current Medications Acetaminophen (Tylenol 325mg Tab) 650 mg PO ONCE PRN PRN Reason: Pain, moderate (4-7) Last Admin: 10/20/16 09:13 Dose: 650 mg Acetaminophen (Tylenol 325mg Tab) 650 mg PO Q4 PRN PRN Reason: Pain, moderate (4-7) Last Admin: 10/19/16 04:07 Dose: 650 mg Acetylcysteine (Mucomyst 10% 4ml) 2 ml IH RBID [facility] Last Admin: 10/20/16 19:09 Dose: 2 ml Albuterol Sulfate (Albuterol 0.083% Inhal Mary (2.5 Mg/3 Ml) Ud) 2.5 mg INH RQ4 PRN PRN Reason: Shortness of Breath Albuterol/Ipratropium (Duoneb 3 Mg/0.5 Mg (3 Ml) Ud) 3 ml INH RQID [facility] Stop: 10/20/16 23:59 Last Admin: 10/20/16 19:09 Dose: 3 ml Amiodarone HCl (Cordarone) 200 mg PO DAILY [facility] Last Admin: 10/20/16 08:57 Dose: 200 mg Aspirin (Aspirin Chewable) 81 mg PEG DAILY [facility] Last Admin: 10/20/16 08:57 Dose: 81 mg Famotidine (Pepcid) 20 mg PO HS [facility] Last Admin: 10/19/16 22:11 Dose: 20 mg Guaifenesin (Mucinex La) 600 mg PO Q12 [facility] Last Admin: 10/20/16 09:00 Dose: 600 mg Hydrochlorothiazide (Microzide) 12.5 mg PO DAILY [facility] Last Admin: 10/20/16 08:59 Dose: 12.5 mg Meropenem 500 mg/ Sodium (Chloride) 100 mls @ 100 mls/hr IVPB Q8 [facility] Last Admin: 10/20/16 16:19 Dose: 100 mls/hr Lidocaine HCl (Lidocaine Hydrochloride Jelly 2% 5 Ml) 1 ml TOP DAILY PRN PRN Reason: Pain, Mild (1-3) Metoprolol Tartrate (Lopressor) 12.5 mg GT Q12 [facility] Last Admin: 10/20/16 20:42 Dose: 12.5 mg Ondansetron HCl (Zofran Inj) 4 mg IVP Q6 PRN PRN Reason: Nausea/Vomiting Last Admin: 10/20/16 16:42 Dose: 4 mg Sucralfate (Carafate Oral Susp) 1 gm PO QID [facility] Last Admin: 10/20/16 16:19 Dose: 1 gm Tiotropium [place] (Spiriva) 18 mcg INH DAILY [facility] - Labs Labs: 10/20/16 15:00 10/20/16 06:10 PT 12.2 SECONDS (9.6-11.2) H 10/12/16 14:26 INR 1.17 (0.92-1.08) H 10/12/16 14:26 APTT 31.1 SECONDS (23.3-32.5) 10/12/16 14:26 - Respiratory Exam Respiratory Exam: NORMAL BREATHING PATTERN - Cardiovascular Exam Cardiovascular Exam: REGULAR RHYTHM - GI/Abdominal Exam GI & Abdominal Exam: Normal Bowel Sounds Assessment and Plan - Assessment and Plan (Free Text) Assessment: s/p Acute Respiratory Failure Aspiration?? Pneumonia COPD Hx Klebsiella + ESBL E coli Pneumonia Hx L pneumothorax Pulmonary ID S/P V-fib/ V-tach 2 to pulmonary dx A-fib CAD S/P CABG Amiodorone Cardiology SMITA/ ?CKD Hx Hyperkalemia etiol ?? Adrenal insufficiency ? K+ wnl Nephrology IVF Cortisol level ?? Endo consult Chronic chest wall pain Hx Dec oral intake swallowing?? PEG Jevity GI s/p + C-diff + Ag -toxin
[2016-10-21] MEDS: Meropenem 500 MG in Sodium Chloride 0.9% 100 ML IVPB SCH ×3 (01:14→16:40)
[2016-10-21 07:08] LABS: HEMATOCRIT 32.3 % (35.0-51.0); MEAN CORPUSCULAR HEMOGLOBIN 29.5 pg (27.0-31.0); MEAN CORPUSCULAR HGB CONC 31.7 g/dL (33.0-37.0); RED CELL DISTRIBUTION WIDTH 17.5 % (11.5-14.5); WHITE BLOOD COUNT 11.2 K/uL (4.8-10.8)
[2016-10-21] MEDS: Albuterol 0.083% Inhal Sol (2.5 mg/3 mL) UD INH PRN ×2 (07:55→19:24)
[2016-10-21] MEDS: Acetylcysteine 10% 4 ML IH SCH ×2 (07:55→19:24)
[2016-10-21] MEDS ORDERED: Povidone Iodine Topical 10% Sol ONE (08:10)
[2016-10-21] MEDS: guaiFENesin 600 mg ER Tab PO SCH ×2 (08:58→21:55)
[2016-10-21] MEDS: Tiotropium 18 mcg Cap For Inhalation INH SCH (08:58)
[2016-10-21] MEDS: Sucralfate 1 gm/10 ml Oral Susp UD PO SCH ×4 (08:59→22:05)
--- NOTE | 2016-10-21 09:15 | CP.PCM.PN ---
Subjective - Date & Time of Evaluation Date of Evaluation: 10/21/16 Time of Evaluation: 09:13 - Subjective Subjective: 71 year old male with PMHx significant for CAD, CHF, HTN, Afib, hypercholesterolemia, COPD was seen at bedside, with attending Dr. Mae, regarding unstageable ulcerations to bilateral heels. Patient denies any acute events overnight. Admits to pain on palpation to heels b/l. Denies n/v/f/c/sob/ cp. Objective - Vital Signs/Intake and Output Vital Signs (last 24 hours): Temp Pulse Resp BP Pulse Ox 98.2 F 78 18 129/73 95 10/21/16 08:00 10/21/16 08:59 10/21/16 08:00 10/21/16 08:59 10/21/16 08:00 Intake and Output: 10/21/16 10/21/16 06:59 18:59 Intake Total 320 Balance 320 - Medications Medications: Current Medications Acetaminophen (Tylenol 325mg Tab) 650 mg PO ONCE PRN PRN Reason: Pain, moderate (4-7) Last Admin: 10/20/16 21:50 Dose: 650 mg Acetaminophen (Tylenol 325mg Tab) 650 mg PO Q4 PRN PRN Reason: Pain, moderate (4-7) Last Admin: 10/19/16 04:07 Dose: 650 mg Acetylcysteine (Mucomyst 10% 4ml) 2 ml IH RBID [facility] Last Admin: 10/21/16 07:55 Dose: 2 ml Albuterol Sulfate (Albuterol 0.083% Inhal Mary (2.5 Mg/3 Ml) Ud) 2.5 mg INH RQ4 PRN PRN Reason: Shortness of Breath Last Admin: 10/21/16 07:55 Dose: 2.5 mg Amiodarone HCl (Cordarone) 200 mg PO DAILY [facility] Last Admin: 10/21/16 08:59 Dose: 200 mg Aspirin (Aspirin Chewable) 81 mg PEG DAILY [facility] Last Admin: 10/21/16 08:59 Dose: 81 mg Famotidine (Pepcid) 20 mg PO HS [facility] Last Admin: 10/20/16 22:00 Dose: 20 mg Guaifenesin (Mucinex La) 600 mg PO Q12 [facility] Last Admin: 10/21/16 08:58 Dose: 600 mg Hydrochlorothiazide (Microzide) 12.5 mg PO DAILY [facility] Last Admin: 10/21/16 08:59 Dose: 12.5 mg Meropenem 500 mg/ Sodium (Chloride) 100 mls @ 100 mls/hr IVPB Q8 [facility] Last Admin: 10/21/16 08:57 Dose: 100 mls/hr Lidocaine HCl (Lidocaine Hydrochloride Jelly 2% 5 Ml) 1 ml TOP DAILY PRN PRN Reason: Pain, Mild (1-3) Metoprolol Tartrate (Lopressor) 12.5 mg GT Q12 [facility] Last Admin: 10/21/16 08:58 Dose: 12.5 mg Ondansetron HCl (Zofran Inj) 4 mg IVP Q6 PRN PRN Reason: Nausea/Vomiting Last Admin: 10/20/16 16:42 Dose: 4 mg Sucralfate (Carafate Oral Susp) 1 gm PO QID [facility] Last Admin: 10/21/16 08:59 Dose: 1 gm Tiotropium [place] (Spiriva) 18 mcg INH DAILY [facility] Last Admin: 10/21/16 08:58 Dose: 18 mcg - Labs Labs: 10/21/16 06:35 10/20/16 06:10 PT 12.2 SECONDS (9.6-11.2) H 10/12/16 14:26 INR 1.17 (0.92-1.08) H 10/12/16 14:26 APTT 31.1 SECONDS (23.3-32.5) 10/12/16 14:26 - Constitutional Appears: Non-toxic, No Acute Distress - Extremities Exam Additional comments: VASC: DP and PT pulses non-palpable b/l. Skin temperature warm to cool b/l. CFT is sluggish. DERM: Unstageable pressure ulcer noted to the plantar aspect of left heel measuring approximately 5.0 cm x 5.0 cm on the left, and 2 cm x 3 cm on the right, no fluctuance, no erythema, no acute sings infection, dry eschar to bilateral heels appear to be stable with no macerations. Healed excoriations noted to the medial and lateral malleolus of left ankle, as well as anterior aspect of right and left ankle. NEURO: Unable to asses ORTHO: hammering of digits 2-5 left and 2,3,5 on right - Neurological Exam Neurological Exam: Alert, Awake, Oriented x3 - Psychiatric Exam Psychiatric exam: Normal Affect, Normal Mood Assessment and Plan - Assessment and Plan (Free Text) Assessment: 71 year old male with chronic unstageable pressure ulcers to heels bilaterally Plan: Patient seen and evaluated at bedside with attending, Dr. Mae Chart, labs, vitals reviewed Dressing changes with Betadine and DSD Offloading boots to be worn at all times while patient is in bed Stable at this time per podiatry Podiatry will continue to monitor while he remains in house
--- NOTE | 2016-10-21 10:47 | CP.PCM.PN ---
Subjective - Date & Time of Evaluation Date of Evaluation: 10/21/16 Time of Evaluation: 10:45 - Subjective Subjective: Has now had 9 days of antibiotics which includes 6 days of meropenem. He remains afebrile, the WBC count has almost normalized. His latest CXR shows some residual right basal alveolar infiltrates. He has improved well enough to be transferred to [facility] to complete a 10 day course of meropenem. Objective - Vital Signs/Intake and Output Vital Signs (last 24 hours): Temp Pulse Resp BP Pulse Ox 98.2 F 78 18 129/73 95 10/21/16 08:00 10/21/16 08:59 10/21/16 08:00 10/21/16 08:59 10/21/16 08:00 Intake and Output: 10/20/16 10/21/16 23:59 11:59 Intake Total 320 Balance 320 - Medications Medications: Current Medications Acetaminophen (Tylenol 325mg Tab) 650 mg PO ONCE PRN PRN Reason: Pain, moderate (4-7) Last Admin: 10/20/16 21:50 Dose: 650 mg Acetaminophen (Tylenol 325mg Tab) 650 mg PO Q4 PRN PRN Reason: Pain, moderate (4-7) Last Admin: 10/21/16 09:55 Dose: 650 mg Acetylcysteine (Mucomyst 10% 4ml) 2 ml IH RBID [facility] Last Admin: 10/21/16 07:55 Dose: 2 ml Albuterol Sulfate (Albuterol 0.083% Inhal Mary (2.5 Mg/3 Ml) Ud) 2.5 mg INH RQ4 PRN PRN Reason: Shortness of Breath Last Admin: 10/21/16 07:55 Dose: 2.5 mg Amiodarone HCl (Cordarone) 200 mg PO DAILY [facility] Last Admin: 10/21/16 08:59 Dose: 200 mg Aspirin (Aspirin Chewable) 81 mg PEG DAILY [facility] Last Admin: 10/21/16 08:59 Dose: 81 mg Famotidine (Pepcid) 20 mg PO HS [facility] Last Admin: 10/20/16 22:00 Dose: 20 mg Guaifenesin (Mucinex La) 600 mg PO Q12 [facility] Last Admin: 10/21/16 08:58 Dose: 600 mg Hydrochlorothiazide (Microzide) 12.5 mg PO DAILY [facility] Last Admin: 10/21/16 08:59 Dose: 12.5 mg Meropenem 500 mg/ Sodium (Chloride) 100 mls @ 100 mls/hr IVPB Q8 [facility] Last Admin: 10/21/16 08:57 Dose: 100 mls/hr Lidocaine HCl (Lidocaine Hydrochloride Jelly 2% 5 Ml) 1 ml TOP DAILY PRN PRN Reason: Pain, Mild (1-3) Metoprolol Tartrate (Lopressor) 12.5 mg GT Q12 [facility] Last Admin: 10/21/16 08:58 Dose: 12.5 mg Ondansetron HCl (Zofran Inj) 4 mg IVP Q6 PRN PRN Reason: Nausea/Vomiting Last Admin: 10/20/16 16:42 Dose: 4 mg Sucralfate (Carafate Oral Susp) 1 gm PO QID [facility] Last Admin: 10/21/16 08:59 Dose: 1 gm Tiotropium [place] (Spiriva) 18 mcg INH DAILY [facility] Last Admin: 10/21/16 08:58 Dose: 18 mcg - Labs Labs: 10/21/16 06:35 10/20/16 06:10 PT 12.2 SECONDS (9.6-11.2) H 10/12/16 14:26 INR 1.17 (0.92-1.08) H 10/12/16 14:26 APTT 31.1 SECONDS (23.3-32.5) 10/12/16 14:26 Assessment and Plan (1) Pneumonia Status: Acute (2) Sepsis Status: Acute (3) Respiratory failure with hypercapnia Status: Resolved (4) COPD (chronic obstructive pulmonary disease) Status: Chronic
--- NOTE | 2016-10-21 11:00 | CP.PCM.PN ---
Subjective - Date & Time of Evaluation Date of Evaluation: 10/21/16 Time of Evaluation: 09:00 - Subjective Subjective: improving on Merrem for possible JAYNE Objective - Vital Signs/Intake and Output Vital Signs (last 24 hours): Temp Pulse Resp BP Pulse Ox 98.2 F 78 18 129/73 95 10/21/16 08:00 10/21/16 08:59 10/21/16 08:00 10/21/16 08:59 10/21/16 08:00 Intake and Output: 10/21/16 10/21/16 06:59 18:59 Intake Total 320 Balance 320 - Medications Medications: Current Medications Acetaminophen (Tylenol 325mg Tab) 650 mg PO ONCE PRN PRN Reason: Pain, moderate (4-7) Last Admin: 10/20/16 21:50 Dose: 650 mg Acetaminophen (Tylenol 325mg Tab) 650 mg PO Q4 PRN PRN Reason: Pain, moderate (4-7) Last Admin: 10/21/16 09:55 Dose: 650 mg Acetylcysteine (Mucomyst 10% 4ml) 2 ml IH RBID [facility] Last Admin: 10/21/16 07:55 Dose: 2 ml Albuterol Sulfate (Albuterol 0.083% Inhal Mary (2.5 Mg/3 Ml) Ud) 2.5 mg INH RQ4 PRN PRN Reason: Shortness of Breath Last Admin: 10/21/16 07:55 Dose: 2.5 mg Amiodarone HCl (Cordarone) 200 mg PO DAILY [facility] Last Admin: 10/21/16 08:59 Dose: 200 mg Aspirin (Aspirin Chewable) 81 mg PEG DAILY [facility] Last Admin: 10/21/16 08:59 Dose: 81 mg Famotidine (Pepcid) 20 mg PO HS [facility] Last Admin: 10/20/16 22:00 Dose: 20 mg Guaifenesin (Mucinex La) 600 mg PO Q12 [facility] Last Admin: 10/21/16 08:58 Dose: 600 mg Hydrochlorothiazide (Microzide) 12.5 mg PO DAILY [facility] Last Admin: 10/21/16 08:59 Dose: 12.5 mg Meropenem 500 mg/ Sodium (Chloride) 100 mls @ 100 mls/hr IVPB Q8 [facility] Last Admin: 10/21/16 08:57 Dose: 100 mls/hr Lidocaine HCl (Lidocaine Hydrochloride Jelly 2% 5 Ml) 1 ml TOP DAILY PRN PRN Reason: Pain, Mild (1-3) Metoprolol Tartrate (Lopressor) 12.5 mg GT Q12 [facility] Last Admin: 10/21/16 08:58 Dose: 12.5 mg Ondansetron HCl (Zofran Inj) 4 mg IVP Q6 PRN PRN Reason: Nausea/Vomiting Last Admin: 10/20/16 16:42 Dose: 4 mg Sucralfate (Carafate Oral Susp) 1 gm PO QID [facility] Last Admin: 10/21/16 08:59 Dose: 1 gm Tiotropium [place] (Spiriva) 18 mcg INH DAILY [facility] Last Admin: 10/21/16 08:58 Dose: 18 mcg - Labs Labs: 10/21/16 06:35 10/20/16 06:10 PT 12.2 SECONDS (9.6-11.2) H 10/12/16 14:26 INR 1.17 (0.92-1.08) H 10/12/16 14:26 APTT 31.1 SECONDS (23.3-32.5) 10/12/16 14:26 - Constitutional Appears: Non-toxic, Cachectic, Chronically Ill - Head Exam Head Exam: ATRAUMATIC, NORMAL INSPECTION, NORMOCEPHALIC - Eye Exam Eye Exam: PERRL. absent: Scleral icterus - ENT Exam ENT Exam: Mucous Membranes Dry - Neck Exam Neck Exam: absent: Lymphadenopathy - Respiratory Exam Respiratory Exam: Decreased Breath Sounds, Rales, Rhonchi - Cardiovascular Exam Cardiovascular Exam: REGULAR RHYTHM, +S1, +S2 - GI/Abdominal Exam GI & Abdominal Exam: Distended, Soft. absent: Tenderness - Rectal Exam Rectal Exam: Deferred - Exam Exam: NORMAL INSPECTION - Extremities Exam Extremities Exam: absent: Calf Tenderness, Full ROM, Pedal Edema, Tenderness - Back Exam Back Exam: absent: CVA tenderness (L), CVA tenderness (R) - Neurological Exam Neurological Exam: Alert, Awake, Oriented x3 Neuro motor strength exam: Left Upper Extremity: 3, Right Upper Extremity: 3, Left Lower Extremity: 3, Right Lower Extremity: 3 - Psychiatric Exam Psychiatric exam: Depressed - Skin Skin Exam: Dry Assessment and Plan (1) Pneumonia Status: Acute (2) Sepsis Status: Acute (3) COPD (chronic obstructive pulmonary disease) Status: Chronic (4) COPD (chronic obstructive pulmonary disease) with acute bronchitis Status: Acute (5) Atrial fibrillation Status: Acute (6) Atrial fibrillation with RVR Status: Acute
--- NOTE | 2016-10-21 14:27 | PN ---
DATE: 10/21/2016 ROOM: 411 SUBJECTIVE: This is a 71-year-old male admitted with acute exacerbation of COPD with supervening con gestive heart failure and acute pneumonitis and is now being followed closely for metabolic managemen t. The question of whether he indeed had secondary hypoadrenalism or adrenal insufficiency has been brought and we are awaiting the results of the cortisol level given at nighttime and daytime during t he day as ordered. His repeat chemistry showed a BUN of 44, sodium 142, potassium 4.2, chloride 104, CO2 of 26, glucose 83 and creatinine 1.1. His glucose values have ranged from 95-107 and 115 and 12 2 mg/dL. The hemoglobin A1c is 5.8% which is near optimal in terms of prediabetes as noted. The se rum cortisol level is 7.4 mcg/dL with a TSH of 1.0. So at this time, he is actually both clinically and biochemically euadrenal and euthyroid as noted thereof. No indication at this time for any kind of thyroid supplement therapy. We will follow and advise accordingly. Anabella Sebastian MD cc: [id number] TT: 10/21/2016 14:26:55 Confirmation # [id number] Dictation # [id number] tn
--- NOTE | 2016-10-21 21:04 | CP.PCM.PN ---
Subjective - Date & Time of Evaluation Date of Evaluation: 10/21/16 Time of Evaluation: 22:22 - Subjective Subjective: No diarrhea Consults appreciated Objective - Vital Signs/Intake and Output Vital Signs (last 24 hours): Temp Pulse Resp BP Pulse Ox 96.0 F L 75 18 93/60 L 99 10/21/16 15:44 10/21/16 20:17 10/21/16 15:44 10/21/16 20:17 10/21/16 15:44 Intake and Output: 10/21/16 10/22/16 18:59 06:59 Intake Total 410 Balance 410 - Medications Medications: Current Medications Acetaminophen (Tylenol 325mg Tab) 650 mg PO ONCE PRN PRN Reason: Pain, moderate (4-7) Last Admin: 10/21/16 20:10 Dose: 650 mg Acetaminophen (Tylenol 325mg Tab) 650 mg PO Q4 PRN PRN Reason: Pain, moderate (4-7) Last Admin: 10/21/16 13:02 Dose: 650 mg Acetylcysteine (Mucomyst 10% 4ml) 2 ml IH RBID [facility] Last Admin: 10/21/16 19:24 Dose: 2 ml Albuterol Sulfate (Albuterol 0.083% Inhal Mary (2.5 Mg/3 Ml) Ud) 2.5 mg INH RQ4 PRN PRN Reason: Shortness of Breath Last Admin: 10/21/16 19:24 Dose: 2.5 mg Amiodarone HCl (Cordarone) 200 mg PO DAILY [facility] Last Admin: 10/21/16 08:59 Dose: 200 mg Aspirin (Aspirin Chewable) 81 mg PEG DAILY [facility] Last Admin: 10/21/16 08:59 Dose: 81 mg Famotidine (Pepcid) 20 mg PO HS [facility] Last Admin: 10/20/16 22:00 Dose: 20 mg Guaifenesin (Mucinex La) 600 mg PO Q12 [facility] Last Admin: 10/21/16 08:58 Dose: 600 mg Hydrochlorothiazide (Microzide) 12.5 mg PO DAILY [facility] Last Admin: 10/21/16 08:59 Dose: 12.5 mg Meropenem 500 mg/ Sodium (Chloride) 100 mls @ 100 mls/hr IVPB Q8 [facility] Last Admin: 10/21/16 16:40 Dose: 100 mls/hr Lidocaine HCl (Lidocaine Hydrochloride Jelly 2% 5 Ml) 1 ml TOP DAILY PRN PRN Reason: Pain, Mild (1-3) Last Admin: 10/21/16 13:03 Dose: 1 ml Metoprolol Tartrate (Lopressor) 12.5 mg GT Q12 [facility] Last Admin: 10/21/16 20:17 Dose: Not Given Ondansetron HCl (Zofran Inj) 4 mg IVP Q6 PRN PRN Reason: Nausea/Vomiting Last Admin: 10/21/16 17:49 Dose: 4 mg Sucralfate (Carafate Oral Susp) 1 gm PO QID [facility] Last Admin: 10/21/16 16:41 Dose: 1 gm Tiotropium [place] (Spiriva) 18 mcg INH DAILY [facility] Last Admin: 10/21/16 08:58 Dose: 18 mcg - Labs Labs: 10/21/16 06:35 10/20/16 06:10 PT 12.2 SECONDS (9.6-11.2) H 10/12/16 14:26 INR 1.17 (0.92-1.08) H 10/12/16 14:26 APTT 31.1 SECONDS (23.3-32.5) 10/12/16 14:26 - Respiratory Exam Respiratory Exam: NORMAL BREATHING PATTERN - Cardiovascular Exam Cardiovascular Exam: REGULAR RHYTHM - GI/Abdominal Exam GI & Abdominal Exam: Normal Bowel Sounds Assessment and Plan - Assessment and Plan (Free Text) Assessment: s/p Acute Respiratory Failure Aspiration?? Pneumonia COPD Hx Klebsiella + ESBL E coli Pneumonia Hx L pneumothorax Pulmonary ID S/P V-fib/ V-tach 2 to pulmonary dx A-fib CAD S/P CABG Amiodorone Cardiology SMITA/ ?CKD Hx Hyperkalemia etiol ?? Adrenal insufficiency ? K+ wnl Nephrology IVF Cortisol level ?? Endo consult Chronic chest wall pain Hx Dec oral intake swallowing?? PEG Jevity GI C-diff negative
[2016-10-22] MEDS: Meropenem 500 MG in Sodium Chloride 0.9% 100 ML IVPB SCH ×3 (01:42→16:58)
--- NOTE | 2016-10-22 07:19 | CP.PCM.PN ---
Subjective - Date & Time of Evaluation Date of Evaluation: 10/22/16 Time of Evaluation: 07:19 - Subjective Subjective: 71 year old male with PMHx significant for CAD, CHF, HTN, Afib, hypercholesterolemia, COPD was seen at bedside resting comfortably regarding unstageable ulcerations to bilateral heels. Patient denies any acute events overnight. Admits he is having more pain in his heels today. Denies n/v/f/c/sob/ cp. Objective - Vital Signs/Intake and Output Vital Signs (last 24 hours): Temp Pulse Resp BP Pulse Ox 97.6 F 73 18 127/66 99 10/22/16 00:33 10/22/16 00:33 10/22/16 00:33 10/22/16 00:33 10/22/16 00:33 - Medications Medications: Current Medications Acetaminophen (Tylenol 325mg Tab) 650 mg PO ONCE PRN PRN Reason: Pain, moderate (4-7) Last Admin: 10/22/16 01:44 Dose: 650 mg Acetaminophen (Tylenol 325mg Tab) 650 mg PO Q4 PRN PRN Reason: Pain, moderate (4-7) Last Admin: 10/22/16 06:59 Dose: 650 mg Acetylcysteine (Mucomyst 10% 4ml) 2 ml IH RBID [facility] Last Admin: 10/21/16 19:24 Dose: 2 ml Albuterol Sulfate (Albuterol 0.083% Inhal Mary (2.5 Mg/3 Ml) Ud) 2.5 mg INH RQ4 PRN PRN Reason: Shortness of Breath Last Admin: 10/21/16 19:24 Dose: 2.5 mg Amiodarone HCl (Cordarone) 200 mg PO DAILY [facility] Last Admin: 10/21/16 08:59 Dose: 200 mg Aspirin (Aspirin Chewable) 81 mg PEG DAILY [facility] Last Admin: 10/21/16 08:59 Dose: 81 mg Famotidine (Pepcid) 20 mg PO HS [facility] Last Admin: 10/21/16 22:07 Dose: 20 mg Guaifenesin (Mucinex La) 600 mg PO Q12 [facility] Last Admin: 10/21/16 21:55 Dose: 600 mg Hydrochlorothiazide (Microzide) 12.5 mg PO DAILY [facility] Last Admin: 10/21/16 08:59 Dose: 12.5 mg Meropenem 500 mg/ Sodium (Chloride) 100 mls @ 100 mls/hr IVPB Q8 [facility] Last Admin: 10/22/16 01:42 Dose: 100 mls/hr Lidocaine HCl (Lidocaine Hydrochloride Jelly 2% 5 Ml) 1 ml TOP DAILY PRN PRN Reason: Pain, Mild (1-3) Last Admin: 10/21/16 13:03 Dose: 1 ml Metoprolol Tartrate (Lopressor) 12.5 mg GT Q12 [facility] Last Admin: 10/21/16 20:17 Dose: Not Given Ondansetron HCl (Zofran Inj) 4 mg IVP Q6 PRN PRN Reason: Nausea/Vomiting Last Admin: 10/21/16 17:49 Dose: 4 mg Sucralfate (Carafate Oral Susp) 1 gm PO QID [facility] Last Admin: 10/21/16 22:05 Dose: 1 gm Tiotropium [place] (Spiriva) 18 mcg INH DAILY [facility] Last Admin: 10/21/16 08:58 Dose: 18 mcg - Labs Labs: 10/21/16 06:35 10/20/16 06:10 PT 12.2 SECONDS (9.6-11.2) H 10/12/16 14:26 INR 1.17 (0.92-1.08) H 10/12/16 14:26 APTT 31.1 SECONDS (23.3-32.5) 10/12/16 14:26 - Constitutional Appears: Non-toxic, No Acute Distress - Extremities Exam Additional comments: Bilateral lower extremity examination: VASC: DP and PT pulses non-palpable b/l. Skin temperature warm to cool b/l. CFT is sluggish. DERM: Unstageable pressure ulcer noted to the plantar aspect of left heel measuring approximately 5.0 cm x 5.0 cm on the left, and 2 cm x 3 cm on the right, no fluctuance, no erythema, no acute sings infection, dry eschar to bilateral heels appear to be stable with no macerations. Healed excoriations noted to the medial and lateral malleolus of left ankle, as well as anterior aspect of right and left ankle. NEURO:Gross sensation intact ORTHO: hammering of digits 2-5 left and 2,3,5 on right - Neurological Exam Neurological Exam: Alert, Awake, Oriented x3 - Psychiatric Exam Psychiatric exam: Normal Affect, Normal Mood Assessment and Plan - Assessment and Plan (Free Text) Assessment: 71 year old male with chronic unstageable pressure ulcers to heels bilaterally Plan: Patient seen and evaluated at bedside Chart, labs, vitals reviewed Discussed in detail with attending, Dr. Mae Dressing changes with Betadine and DSD Offloading boots to be worn at all times while patient is in bed Stable at this time per podiatry Podiatry will continue to monitor while he remains in house
[2016-10-22] MEDS: Acetylcysteine 10% 4 ML IH SCH ×2 (07:48→19:08)
[2016-10-22] MEDS: Albuterol 0.083% Inhal Sol (2.5 mg/3 mL) UD INH PRN ×2 (07:48→19:09)
--- NOTE | 2016-10-22 08:13 | CP.PCM.PN ---
Subjective - Date & Time of Evaluation Date of Evaluation: 10/21/16 Time of Evaluation: 09:00 - Subjective Subjective: NO NEW COMPLAINTS BREATHING BETTER Objective - Vital Signs/Intake and Output Vital Signs (last 24 hours): Temp Pulse Resp BP Pulse Ox 98.4 F 71 18 120/68 97 10/22/16 08:03 10/22/16 08:03 10/22/16 08:03 10/22/16 08:03 10/22/16 08:03 - Medications Medications: Current Medications Acetaminophen (Tylenol 325mg Tab) 650 mg PO ONCE PRN PRN Reason: Pain, moderate (4-7) Last Admin: 10/22/16 01:44 Dose: 650 mg Acetaminophen (Tylenol 325mg Tab) 650 mg PO Q4 PRN PRN Reason: Pain, moderate (4-7) Last Admin: 10/22/16 06:59 Dose: 650 mg Acetylcysteine (Mucomyst 10% 4ml) 2 ml IH RBID [facility] Last Admin: 10/22/16 07:48 Dose: 2 ml Albuterol Sulfate (Albuterol 0.083% Inhal Mary (2.5 Mg/3 Ml) Ud) 2.5 mg INH RQ4 PRN PRN Reason: Shortness of Breath Last Admin: 10/22/16 07:48 Dose: 2.5 mg Amiodarone HCl (Cordarone) 200 mg PO DAILY [facility] Last Admin: 10/21/16 08:59 Dose: 200 mg Aspirin (Aspirin Chewable) 81 mg PEG DAILY [facility] Last Admin: 10/21/16 08:59 Dose: 81 mg Famotidine (Pepcid) 20 mg PO HS [facility] Last Admin: 10/21/16 22:07 Dose: 20 mg Guaifenesin (Mucinex La) 600 mg PO Q12 [facility] Last Admin: 10/21/16 21:55 Dose: 600 mg Hydrochlorothiazide (Microzide) 12.5 mg PO DAILY [facility] Last Admin: 10/21/16 08:59 Dose: 12.5 mg Meropenem 500 mg/ Sodium (Chloride) 100 mls @ 100 mls/hr IVPB Q8 [facility] Last Admin: 10/22/16 01:42 Dose: 100 mls/hr Lidocaine HCl (Lidocaine Hydrochloride Jelly 2% 5 Ml) 1 ml TOP DAILY PRN PRN Reason: Pain, Mild (1-3) Last Admin: 10/21/16 13:03 Dose: 1 ml Metoprolol Tartrate (Lopressor) 12.5 mg GT Q12 [facility] Last Admin: 10/21/16 20:17 Dose: Not Given Ondansetron HCl (Zofran Inj) 4 mg IVP Q6 PRN PRN Reason: Nausea/Vomiting Last Admin: 10/21/16 17:49 Dose: 4 mg Sucralfate (Carafate Oral Susp) 1 gm PO QID [facility] Last Admin: 10/21/16 22:05 Dose: 1 gm Tiotropium [place] (Spiriva) 18 mcg INH DAILY [facility] Last Admin: 10/21/16 08:58 Dose: 18 mcg - Labs Labs: 10/21/16 06:35 10/20/16 06:10 PT 12.2 SECONDS (9.6-11.2) H 10/12/16 14:26 INR 1.17 (0.92-1.08) H 10/12/16 14:26 APTT 31.1 SECONDS (23.3-32.5) 10/12/16 14:26 - Respiratory Exam Respiratory Exam: Rales, Rhonchi - Cardiovascular Exam Cardiovascular Exam: REGULAR RHYTHM, +S1 - Additional Findings Additional findings: [place] [employer] NSR Assessment and Plan - Assessment and Plan (Free Text) Assessment: PNEUMONIA CAD S/P ATRIAL FIBRILLATION-NOW IN NSR Plan: CONTINUE O2, ASPIRIN, AMIODARONEMETOPROLOL
[2016-10-22] MEDS: Sucralfate 1 gm/10 ml Oral Susp UD PO SCH ×4 (09:36→21:11)
[2016-10-22] MEDS: guaiFENesin 600 mg ER Tab PO SCH ×2 (09:36→21:15)
[2016-10-22] MEDS: Tiotropium 18 mcg Cap For Inhalation INH SCH (09:37)
--- NOTE | 2016-10-22 09:41 | CP.PCM.PN ---
Subjective - Date & Time of Evaluation Date of Evaluation: 10/22/16 Time of Evaluation: 09:36 - Subjective Subjective: Doing well, residual congested cough. Able to expectorate with coaching. Sputum is faintly yellow in color. Remains afebrile and normotensive. SpO2 91% on room air, 95% on nasal canula @ 2 LPM. Neck is supple and trachea midline. No dullness on chest percussion, no subcut emphysema. Breath sounds are diminished bilaterally. Sonorous rhonchi are heard in the lower lobes posteriorly. Few medium rales present in the bases bilaterally. No audible wheezing. No bronchial breath sounds or egophony. Will ask for repeat CXR in the morning as well as CBC. Has done very well and can probably start more PT. Objective - Vital Signs/Intake and Output Vital Signs (last 24 hours): Temp Pulse Resp BP Pulse Ox 98.4 F 71 18 120/68 97 10/22/16 08:03 10/22/16 08:03 10/22/16 08:03 10/22/16 08:03 10/22/16 08:03 - Medications Medications: Current Medications Acetaminophen (Tylenol 325mg Tab) 650 mg PO ONCE PRN PRN Reason: Pain, moderate (4-7) Last Admin: 10/22/16 01:44 Dose: 650 mg Acetaminophen (Tylenol 325mg Tab) 650 mg PO Q4 PRN PRN Reason: Pain, moderate (4-7) Last Admin: 10/22/16 06:59 Dose: 650 mg Acetylcysteine (Mucomyst 10% 4ml) 2 ml IH RBID [facility] Last Admin: 10/22/16 07:48 Dose: 2 ml Albuterol Sulfate (Albuterol 0.083% Inhal Mary (2.5 Mg/3 Ml) Ud) 2.5 mg INH RQ4 PRN PRN Reason: Shortness of Breath Last Admin: 10/22/16 07:48 Dose: 2.5 mg Amiodarone HCl (Cordarone) 200 mg PO DAILY [facility] Last Admin: 10/21/16 08:59 Dose: 200 mg Aspirin (Aspirin Chewable) 81 mg PEG DAILY [facility] Last Admin: 10/21/16 08:59 Dose: 81 mg Famotidine (Pepcid) 20 mg PO HS [facility] Last Admin: 10/21/16 22:07 Dose: 20 mg Guaifenesin (Mucinex La) 600 mg PO Q12 [facility] Last Admin: 10/21/16 21:55 Dose: 600 mg Hydrochlorothiazide (Microzide) 12.5 mg PO DAILY [facility] Last Admin: 10/21/16 08:59 Dose: 12.5 mg Meropenem 500 mg/ Sodium (Chloride) 100 mls @ 100 mls/hr IVPB Q8 [facility] Last Admin: 10/22/16 01:42 Dose: 100 mls/hr Lidocaine HCl (Lidocaine Hydrochloride Jelly 2% 5 Ml) 1 ml TOP DAILY PRN PRN Reason: Pain, Mild (1-3) Last Admin: 10/21/16 13:03 Dose: 1 ml Metoprolol Tartrate (Lopressor) 12.5 mg GT Q12 [facility] Last Admin: 10/21/16 20:17 Dose: Not Given Ondansetron HCl (Zofran Inj) 4 mg IVP Q6 PRN PRN Reason: Nausea/Vomiting Last Admin: 10/21/16 17:49 Dose: 4 mg Sucralfate (Carafate Oral Susp) 1 gm PO QID [facility] Last Admin: 10/21/16 22:05 Dose: 1 gm Tiotropium [place] (Spiriva) 18 mcg INH DAILY [facility] Last Admin: 10/21/16 08:58 Dose: 18 mcg - Labs Labs: 10/21/16 06:35 10/20/16 06:10 PT 12.2 SECONDS (9.6-11.2) H 10/12/16 14:26 INR 1.17 (0.92-1.08) H 10/12/16 14:26 APTT 31.1 SECONDS (23.3-32.5) 10/12/16 14:26 Assessment and Plan (1) Pneumonia Status: Acute (2) Sepsis Status: Acute (3) Respiratory failure with hypercapnia Status: Resolved (4) COPD (chronic obstructive pulmonary disease) Status: Chronic
--- NOTE | 2016-10-22 10:15 | CP.PCM.PN ---
Subjective - Date & Time of Evaluation Date of Evaluation: 10/22/16 Time of Evaluation: 10:14 - Subjective Subjective: seen and examined feels ok denies any n/v Objective - Vital Signs/Intake and Output Vital Signs (last 24 hours): Temp Pulse Resp BP Pulse Ox 98.4 F 71 18 120/68 97 10/22/16 08:03 10/22/16 09:39 10/22/16 08:03 10/22/16 09:39 10/22/16 08:03 - Medications Medications: Current Medications Acetaminophen (Tylenol 325mg Tab) 650 mg PO ONCE PRN PRN Reason: Pain, moderate (4-7) Last Admin: 10/22/16 10:05 Dose: 650 mg Acetaminophen (Tylenol 325mg Tab) 650 mg PO Q4 PRN PRN Reason: Pain, moderate (4-7) Last Admin: 10/22/16 06:59 Dose: 650 mg Acetylcysteine (Mucomyst 10% 4ml) 2 ml IH RBID [facility] Last Admin: 10/22/16 07:48 Dose: 2 ml Albuterol Sulfate (Albuterol 0.083% Inhal Mary (2.5 Mg/3 Ml) Ud) 2.5 mg INH RQ4 PRN PRN Reason: Shortness of Breath Last Admin: 10/22/16 07:48 Dose: 2.5 mg Amiodarone HCl (Cordarone) 200 mg PO DAILY [facility] Last Admin: 10/22/16 09:39 Dose: 200 mg Aspirin (Aspirin Chewable) 81 mg PEG DAILY [facility] Last Admin: 10/22/16 09:37 Dose: 81 mg Famotidine (Pepcid) 20 mg PO HS [facility] Last Admin: 10/21/16 22:07 Dose: 20 mg Guaifenesin (Mucinex La) 600 mg PO Q12 [facility] Last Admin: 10/22/16 09:36 Dose: 600 mg Hydrochlorothiazide (Microzide) 12.5 mg PO DAILY [facility] Last Admin: 10/22/16 09:37 Dose: 12.5 mg Meropenem 500 mg/ Sodium (Chloride) 100 mls @ 100 mls/hr IVPB Q8 [facility] Last Admin: 10/22/16 09:38 Dose: 100 mls/hr Lidocaine HCl (Lidocaine Hydrochloride Jelly 2% 5 Ml) 1 ml TOP DAILY PRN PRN Reason: Pain, Mild (1-3) Last Admin: 10/21/16 13:03 Dose: 1 ml Metoprolol Tartrate (Lopressor) 12.5 mg GT Q12 [facility] Last Admin: 10/22/16 09:36 Dose: 12.5 mg Ondansetron HCl (Zofran Inj) 4 mg IVP Q6 PRN PRN Reason: Nausea/Vomiting Last Admin: 10/21/16 17:49 Dose: 4 mg Sucralfate (Carafate Oral Susp) 1 gm PO QID [facility] Last Admin: 10/22/16 09:36 Dose: 1 gm Tiotropium [place] (Spiriva) 18 mcg INH DAILY [facility] Last Admin: 10/22/16 09:37 Dose: 18 mcg - Labs Labs: 10/21/16 06:35 10/20/16 06:10 PT 12.2 SECONDS (9.6-11.2) H 10/12/16 14:26 INR 1.17 (0.92-1.08) H 10/12/16 14:26 APTT 31.1 SECONDS (23.3-32.5) 10/12/16 14:26 - Constitutional Appears: Non-toxic - Head Exam Head Exam: ATRAUMATIC - Eye Exam Eye Exam: Normal appearance - ENT Exam ENT Exam: Normal Exam - Neck Exam Neck Exam: Normal Inspection - Respiratory Exam Respiratory Exam: NORMAL BREATHING PATTERN - Cardiovascular Exam Cardiovascular Exam: +S1, +S2 - GI/Abdominal Exam GI & Abdominal Exam: Normal Bowel Sounds - Extremities Exam Additional comments: no edema - Neurological Exam Neurological Exam: Alert, Oriented x3 - Psychiatric Exam Psychiatric exam: Normal Affect - Skin Skin Exam: Normal Color Assessment and Plan - Assessment and Plan (Free Text) Assessment: ARF/ Anemia/ Hyperkalemia / PNA plan: lissett resolving hyperkalemia - seems to be resolved on low dose hctz and bp seems to be tolerating it at this point.
--- NOTE | 2016-10-22 12:17 | CP.PCM.PN ---
Subjective - Date & Time of Evaluation Date of Evaluation: 10/22/16 Time of Evaluation: 12:00 - Subjective Subjective: BREATHING BETTER AND FEELS BETTER Objective - Vital Signs/Intake and Output Vital Signs (last 24 hours): Temp Pulse Resp BP Pulse Ox 98.4 F 71 18 120/68 97 10/22/16 08:03 10/22/16 09:39 10/22/16 08:03 10/22/16 09:39 10/22/16 08:03 - Medications Medications: Current Medications Acetaminophen (Tylenol 325mg Tab) 650 mg PO ONCE PRN PRN Reason: Pain, moderate (4-7) Last Admin: 10/22/16 10:05 Dose: 650 mg Acetaminophen (Tylenol 325mg Tab) 650 mg PO Q4 PRN PRN Reason: Pain, moderate (4-7) Last Admin: 10/22/16 06:59 Dose: 650 mg Acetylcysteine (Mucomyst 10% 4ml) 2 ml IH RBID [facility] Last Admin: 10/22/16 07:48 Dose: 2 ml Albuterol Sulfate (Albuterol 0.083% Inhal Mary (2.5 Mg/3 Ml) Ud) 2.5 mg INH RQ4 PRN PRN Reason: Shortness of Breath Last Admin: 10/22/16 07:48 Dose: 2.5 mg Amiodarone HCl (Cordarone) 200 mg PO DAILY [facility] Last Admin: 10/22/16 09:39 Dose: 200 mg Aspirin (Aspirin Chewable) 81 mg PEG DAILY [facility] Last Admin: 10/22/16 09:37 Dose: 81 mg Famotidine (Pepcid) 20 mg PO HS [facility] Last Admin: 10/21/16 22:07 Dose: 20 mg Guaifenesin (Mucinex La) 600 mg PO Q12 [facility] Last Admin: 10/22/16 09:36 Dose: 600 mg Hydrochlorothiazide (Microzide) 12.5 mg PO DAILY [facility] Last Admin: 10/22/16 09:37 Dose: 12.5 mg Meropenem 500 mg/ Sodium (Chloride) 100 mls @ 100 mls/hr IVPB Q8 [facility] Last Admin: 10/22/16 09:38 Dose: 100 mls/hr Lidocaine HCl (Lidocaine Hydrochloride Jelly 2% 5 Ml) 1 ml TOP DAILY PRN PRN Reason: Pain, Mild (1-3) Last Admin: 10/21/16 13:03 Dose: 1 ml Metoprolol Tartrate (Lopressor) 12.5 mg GT Q12 [facility] Last Admin: 10/22/16 09:36 Dose: 12.5 mg Ondansetron HCl (Zofran Inj) 4 mg IVP Q6 PRN PRN Reason: Nausea/Vomiting Last Admin: 10/21/16 17:49 Dose: 4 mg Sucralfate (Carafate Oral Susp) 1 gm PO QID [facility] Last Admin: 10/22/16 09:36 Dose: 1 gm Tiotropium [place] (Spiriva) 18 mcg INH DAILY [facility] Last Admin: 10/22/16 09:37 Dose: 18 mcg - Labs Labs: 10/21/16 06:35 10/20/16 06:10 PT 12.2 SECONDS (9.6-11.2) H 10/12/16 14:26 INR 1.17 (0.92-1.08) H 10/12/16 14:26 APTT 31.1 SECONDS (23.3-32.5) 10/12/16 14:26 - Respiratory Exam Respiratory Exam: Rales, Rhonchi - Cardiovascular Exam Cardiovascular Exam: REGULAR RHYTHM, +S1, +S2 - Additional Findings Additional findings: CREW SCHEDULER NSR PULMONARY NOTE REVIEWED Assessment and Plan - Assessment and Plan (Free Text) Assessment: PNEUMONIA COPD CAD S/P ATRIAL FIBRILLATION-NOW IN NSR Plan: CONTINUE ANTIBIOTICS, AMIODARONE, ASPIRIN, METOPROLOL
--- NOTE | 2016-10-22 17:29 | PN ---
DATE: 10/22/2016 ROOM: 411 SUBJECTIVE: This is a 71-year-old male with recent acute exacerbation of COPD, initially started on IV steroid therapy and has since then been taken off IV steroids with continued clinical improvement of his respiratory insufficiency as noted thereof. His glycemic levels are fluctuating, but improved as noted and have ranged from 95-117 and 143 mg/dL. His latest chemistry showed a BUN of 44, sodium 142, potassium 4.2, chloride 104, CO2 of 26, glucose 83 and creatinine 1.1. His serum cortisol leve l has been reported as 7.4 mcg/dL with a ACTH of 18 and a TSH of 1.40. He remains clinically and bio chemically euthyroid and euadrenal at this time with no need for extra oral steroid replacement as no anjali. We will obtain serial chemistries and supplement accordingly as needed. We will follow. Anabella Sebastian MD cc: [id number] TT: 10/22/2016 17:29:05 Confirmation # [id number] Dictation # [id number] aldair
--- NOTE | 2016-10-22 18:06 | CP.PCM.PN ---
Subjective - Date & Time of Evaluation Date of Evaluation: 10/22/16 Time of Evaluation: 22:22 - Subjective Subjective: Above noted Objective - Vital Signs/Intake and Output Vital Signs (last 24 hours): Temp Pulse Resp BP Pulse Ox 97.6 F 63 18 125/71 100 10/22/16 15:44 10/22/16 15:44 10/22/16 15:44 10/22/16 15:44 10/22/16 15:44 - Medications Medications: Current Medications Acetaminophen (Tylenol 325mg Tab) 650 mg PO ONCE PRN PRN Reason: Pain, moderate (4-7) Last Admin: 10/22/16 14:53 Dose: 650 mg Acetaminophen (Tylenol 325mg Tab) 650 mg PO Q4 PRN PRN Reason: Pain, moderate (4-7) Last Admin: 10/22/16 06:59 Dose: 650 mg Acetylcysteine (Mucomyst 10% 4ml) 2 ml IH RBID [facility] Last Admin: 10/22/16 07:48 Dose: 2 ml Albuterol Sulfate (Albuterol 0.083% Inhal Mary (2.5 Mg/3 Ml) Ud) 2.5 mg INH RQ4 PRN PRN Reason: Shortness of Breath Last Admin: 10/22/16 07:48 Dose: 2.5 mg Amiodarone HCl (Cordarone) 200 mg PO DAILY [facility] Last Admin: 10/22/16 09:39 Dose: 200 mg Aspirin (Aspirin Chewable) 81 mg PEG DAILY [facility] Last Admin: 10/22/16 09:37 Dose: 81 mg Famotidine (Pepcid) 20 mg PO HS [facility] Last Admin: 10/21/16 22:07 Dose: 20 mg Guaifenesin (Mucinex La) 600 mg PO Q12 [facility] Last Admin: 10/22/16 09:36 Dose: 600 mg Hydrochlorothiazide (Microzide) 12.5 mg PO DAILY [facility] Last Admin: 10/22/16 09:37 Dose: 12.5 mg Meropenem 500 mg/ Sodium (Chloride) 100 mls @ 100 mls/hr IVPB Q8 [facility] Last Admin: 10/22/16 16:58 Dose: 100 mls/hr Lidocaine HCl (Lidocaine Hydrochloride Jelly 2% 5 Ml) 1 ml TOP DAILY PRN PRN Reason: Pain, Mild (1-3) Last Admin: 10/21/16 13:03 Dose: 1 ml Metoprolol Tartrate (Lopressor) 12.5 mg GT Q12 [facility] Last Admin: 10/22/16 09:36 Dose: 12.5 mg Ondansetron HCl (Zofran Inj) 4 mg IVP Q6 PRN PRN Reason: Nausea/Vomiting Last Admin: 10/21/16 17:49 Dose: 4 mg Sucralfate (Carafate Oral Susp) 1 gm PO QID [facility] Last Admin: 10/22/16 16:59 Dose: 1 gm Tiotropium [place] (Spiriva) 18 mcg INH DAILY [facility] Last Admin: 10/22/16 09:37 Dose: 18 mcg - Labs Labs: 10/21/16 06:35 10/20/16 06:10 PT 12.2 SECONDS (9.6-11.2) H 10/12/16 14:26 INR 1.17 (0.92-1.08) H 10/12/16 14:26 APTT 31.1 SECONDS (23.3-32.5) 10/12/16 14:26 - Respiratory Exam Respiratory Exam: NORMAL BREATHING PATTERN - Cardiovascular Exam Cardiovascular Exam: REGULAR RHYTHM - GI/Abdominal Exam GI & Abdominal Exam: Normal Bowel Sounds Assessment and Plan - Assessment and Plan (Free Text) Assessment: s/p Acute Respiratory Failure Aspiration?? Pneumonia COPD Hx Klebsiella + ESBL E coli Pneumonia Hx L pneumothorax Pulmonary ID S/P V-fib/ V-tach 2 to pulmonary dx A-fib CAD S/P CABG Amiodorone Cardiology SMITA/ ?CKD Hx Hyperkalemia etiol ?? Adrenal insufficiency ? K+ wnl on low dose HCTZ Nephrology Cortisol level ?? Endo consult Chronic chest wall pain Hx Dec oral intake swallowing?? PEG [facility] C-diff negative
[2016-10-23] MEDS: Meropenem 500 MG in Sodium Chloride 0.9% 100 ML IVPB SCH ×3 (00:33→16:16)
[2016-10-23 06:42] LABS: HEMATOCRIT 31.2 % (35.0-51.0); MEAN CELL VOLUME 92.5 fl (80.0-94.0); MEAN CORPUSCULAR HGB CONC 32.4 g/dL (33.0-37.0); RED CELL DISTRIBUTION WIDTH 17.3 % (11.5-14.5)
[2016-10-23 07:30] LABS: CHLORIDE 103 mmol/L (98-107)
[2016-10-23 07:31] LABS: POTASSIUM 3.7 MMOL/L (3.6-5.0); SODIUM 139 mmol/l (132-148)
[2016-10-23 07:33] LABS: GFR AFRICAN-AMERICAN > 60
[2016-10-23 07:34] LABS: BLOOD UREA NITROGEN 35 mg/dl (9-20); CALCIUM 8.7 mg/dL (8.4-10.2); CARBON DIOXIDE 24 mmol/L (22-30); GLUCOSE,RANDOM 84 mg/dL (75-110)
[2016-10-23] MEDS: Acetylcysteine 10% 4 ML IH SCH (07:56)
[2016-10-23] MEDS: Albuterol 0.083% Inhal Sol (2.5 mg/3 mL) UD INH PRN (07:56)
--- NOTE | 2016-10-23 08:48 | CP.PCM.PN ---
Subjective - Date & Time of Evaluation Date of Evaluation: 10/23/16 Time of Evaluation: 08:45 - Subjective Subjective: 71 year old male with PMHx significant for CAD, CHF, HTN, Afib, hypercholesterolemia, COPD was seen at bedside resting comfortably regarding unstageable ulcerations to bilateral heels. Admits to having trouble sleeping last night because of pain to heels. Denies n/v/f/c/sob/cp. Objective - Vital Signs/Intake and Output Vital Signs (last 24 hours): Temp Pulse Resp BP Pulse Ox 97.2 F L 66 20 124/68 98 10/23/16 08:12 10/23/16 08:12 10/23/16 08:12 10/23/16 08:12 10/23/16 08:12 Intake and Output: 10/23/16 10/23/16 06:59 18:59 Intake Total 340 Output Total 300 Balance 40 - Medications Medications: Current Medications Acetaminophen (Tylenol 325mg Tab) 650 mg PO ONCE PRN PRN Reason: Pain, moderate (4-7) Last Admin: 10/22/16 14:53 Dose: 650 mg Acetaminophen (Tylenol 325mg Tab) 650 mg PO Q4 PRN PRN Reason: Pain, moderate (4-7) Last Admin: 10/23/16 06:25 Dose: 650 mg Acetylcysteine (Mucomyst 10% 4ml) 2 ml IH RBID [facility] Last Admin: 10/23/16 07:56 Dose: 2 ml Albuterol Sulfate (Albuterol 0.083% Inhal Mary (2.5 Mg/3 Ml) Ud) 2.5 mg INH RQ4 PRN PRN Reason: Shortness of Breath Last Admin: 10/23/16 07:56 Dose: 2.5 mg Amiodarone HCl (Cordarone) 200 mg PO DAILY [facility] Last Admin: 10/22/16 09:39 Dose: 200 mg Aspirin (Aspirin Chewable) 81 mg PEG DAILY [facility] Last Admin: 10/22/16 09:37 Dose: 81 mg Famotidine (Pepcid) 20 mg PO HS [facility] Last Admin: 10/22/16 21:15 Dose: 20 mg Guaifenesin (Mucinex La) 600 mg PO Q12 [facility] Last Admin: 10/22/16 21:15 Dose: 600 mg Hydrochlorothiazide (Microzide) 12.5 mg PO DAILY [facility] Last Admin: 10/22/16 09:37 Dose: 12.5 mg Meropenem 500 mg/ Sodium (Chloride) 100 mls @ 100 mls/hr IVPB Q8 [facility] Last Admin: 10/23/16 00:33 Dose: 100 mls/hr Lidocaine HCl (Lidocaine Hydrochloride Jelly 2% 5 Ml) 1 ml TOP DAILY PRN PRN Reason: Pain, Mild (1-3) Last Admin: 10/21/16 13:03 Dose: 1 ml Metoprolol Tartrate (Lopressor) 12.5 mg GT Q12 [facility] Last Admin: 10/22/16 21:11 Dose: 12.5 mg Ondansetron HCl (Zofran Inj) 4 mg IVP Q6 PRN PRN Reason: Nausea/Vomiting Last Admin: 10/21/16 17:49 Dose: 4 mg Sucralfate (Carafate Oral Susp) 1 gm PO QID [facility] Last Admin: 10/22/16 21:11 Dose: 1 gm Tiotropium [place] (Spiriva) 18 mcg INH DAILY [facility] Last Admin: 10/22/16 09:37 Dose: 18 mcg - Labs Labs: 10/23/16 05:40 10/23/16 05:40 PT 12.2 SECONDS (9.6-11.2) H 10/12/16 14:26 INR 1.17 (0.92-1.08) H 10/12/16 14:26 APTT 31.1 SECONDS (23.3-32.5) 10/12/16 14:26 - Constitutional Appears: Non-toxic, No Acute Distress - Extremities Exam Additional comments: Bilateral lower extremity examination: VASC: DP and PT pulses non-palpable b/l. Skin temperature warm to cool b/l. CFT is sluggish to digits b/l.. DERM: Unstageable pressure ulcer noted to the plantar aspect of left heel measuring approximately 5.0 cm x 5.0 cm on the left, and 2 cm x 3 cm on the right, no fluctuance, no erythema, no acute sings infection, dry eschar to bilateral heels appear to be stable with no macerations. Healed excoriations noted to the medial and lateral malleolus of left ankle, as well as anterior aspect of right and left ankle. Nails 4-5 b/l are elongated. NEURO:Gross sensation intact ORTHO: hammering of digits 2-5 left and 2,3,5 on righ - Neurological Exam Neurological Exam: Alert, Awake, Oriented x3 - Psychiatric Exam Psychiatric exam: Normal Affect, Normal Mood Assessment and Plan - Assessment and Plan (Free Text) Assessment: 71 year old male with chronic unstageable pressure ulcers to heels bilaterally Plan: Patient seen and evaluated at bedside Chart, labs, vitals reviewed Discussed in detail with attending, Dr. Mae Dressing changes with Betadine and DSD Offloading boots to be worn at all times while patient is in bed Nails 4-5 were debrided in thickness and in lenght with nail nippers without incident Stable at this time per podiatry Podiatry will continue to monitor while he remains in house
[2016-10-23] MEDS: guaiFENesin 600 mg ER Tab PO SCH ×2 (09:46→22:04)
[2016-10-23] MEDS: Sucralfate 1 gm/10 ml Oral Susp UD PO SCH ×4 (09:46→22:03)
[2016-10-23] MEDS: Tiotropium 18 mcg Cap For Inhalation INH SCH (10:02)
--- NOTE | 2016-10-23 10:18 | RAD ---
HISTORY: pneumonia COMPARISON: 10/20/2016 TECHNIQUE: Chest PA and lateral FINDINGS: LUNGS: No active pulmonary disease. PLEURA: No significant pleural effusion identified. No pneumothorax apparent. CARDIOVASCULAR: Normal. OSSEOUS STRUCTURES: Sternal wires VISUALIZED UPPER ABDOMEN: Normal. OTHER FINDINGS: None. IMPRESSION: No active disease.
--- NOTE | 2016-10-23 10:36 | CP.PCM.PN ---
Subjective - Date & Time of Evaluation Date of Evaluation: 10/23/16 Time of Evaluation: 10:32 - Subjective Subjective: Looks good. Claims he feels fairly well. Some residual cough (congested) remains. Vital signs have been stable. Today's CXR looks quite good; some residual basal effusion is still present ( small volume). The pneumonic infiltrate has cleared nicely. WBC has decreased to normal range. Some residual sonorous rhonchi are heard in both lower lobes. No audible wheezing or bronchial breathing appreciated. This would be day #9 of meropenem. I would like to complete 10 days therapy. He may be discharged after tomorrow's doses. Objective - Vital Signs/Intake and Output Vital Signs (last 24 hours): Temp Pulse Resp BP Pulse Ox 97.2 F L 66 20 124/68 98 10/23/16 08:12 10/23/16 09:47 10/23/16 08:12 10/23/16 09:47 10/23/16 08:12 Intake and Output: 10/22/16 10/23/16 23:59 11:59 Intake Total 340 Output Total 300 Balance 40 - Medications Medications: Current Medications Acetaminophen (Tylenol 325mg Tab) 650 mg PO ONCE PRN PRN Reason: Pain, moderate (4-7) Last Admin: 10/22/16 14:53 Dose: 650 mg Acetaminophen (Tylenol 325mg Tab) 650 mg PO Q4 PRN PRN Reason: Pain, moderate (4-7) Last Admin: 10/23/16 10:02 Dose: 650 mg Acetylcysteine (Mucomyst 10% 4ml) 2 ml IH RBID [facility] Last Admin: 10/23/16 07:56 Dose: 2 ml Albuterol Sulfate (Albuterol 0.083% Inhal Mary (2.5 Mg/3 Ml) Ud) 2.5 mg INH RQ4 PRN PRN Reason: Shortness of Breath Last Admin: 10/23/16 07:56 Dose: 2.5 mg Amiodarone HCl (Cordarone) 200 mg PO DAILY [facility] Last Admin: 10/23/16 09:47 Dose: 200 mg Aspirin (Aspirin Chewable) 81 mg PEG DAILY [facility] Last Admin: 10/23/16 09:48 Dose: 81 mg Famotidine (Pepcid) 20 mg PO HS [facility] Last Admin: 10/22/16 21:15 Dose: 20 mg Guaifenesin (Mucinex La) 600 mg PO Q12 [facility] Last Admin: 10/23/16 09:46 Dose: 600 mg Hydrochlorothiazide (Microzide) 12.5 mg PO DAILY [facility] Last Admin: 10/23/16 09:48 Dose: 12.5 mg Meropenem 500 mg/ Sodium (Chloride) 100 mls @ 100 mls/hr IVPB Q8 [facility] Last Admin: 10/23/16 09:59 Dose: 100 mls/hr Lidocaine HCl (Lidocaine Hydrochloride Jelly 2% 5 Ml) 1 ml TOP DAILY PRN PRN Reason: Pain, Mild (1-3) Last Admin: 10/21/16 13:03 Dose: 1 ml Metoprolol Tartrate (Lopressor) 12.5 mg GT Q12 [facility] Last Admin: 10/23/16 09:47 Dose: 12.5 mg Ondansetron HCl (Zofran Inj) 4 mg IVP Q6 PRN PRN Reason: Nausea/Vomiting Last Admin: 10/23/16 09:49 Dose: 4 mg Sucralfate (Carafate Oral Susp) 1 gm PO QID [facility] Last Admin: 10/23/16 09:46 Dose: 1 gm Tiotropium [place] (Spiriva) 18 mcg INH DAILY [facility] Last Admin: 10/23/16 10:02 Dose: 18 mcg - Labs Labs: 10/23/16 05:40 10/23/16 05:40 PT 12.2 SECONDS (9.6-11.2) H 10/12/16 14:26 INR 1.17 (0.92-1.08) H 10/12/16 14:26 APTT 31.1 SECONDS (23.3-32.5) 10/12/16 14:26 Assessment and Plan (1) Pneumonia Status: Acute (2) Sepsis Status: Acute (3) Respiratory failure with hypercapnia Status: Resolved (4) COPD (chronic obstructive pulmonary disease) Status: Chronic
--- NOTE | 2016-10-23 10:51 | CP.PCM.PN ---
Subjective - Date & Time of Evaluation Date of Evaluation: 10/23/16 Time of Evaluation: 09:45 - Subjective Subjective: NO CHEST PAIN BREATHING BETTER FEELS STRONGER Objective - Vital Signs/Intake and Output Vital Signs (last 24 hours): Temp Pulse Resp BP Pulse Ox 97.2 F L 66 20 124/68 98 10/23/16 08:12 10/23/16 09:47 10/23/16 08:12 10/23/16 09:47 10/23/16 08:12 Intake and Output: 10/23/16 10/23/16 06:59 18:59 Intake Total 340 Output Total 300 Balance 40 - Medications Medications: Current Medications Acetaminophen (Tylenol 325mg Tab) 650 mg PO ONCE PRN PRN Reason: Pain, moderate (4-7) Last Admin: 10/22/16 14:53 Dose: 650 mg Acetaminophen (Tylenol 325mg Tab) 650 mg PO Q4 PRN PRN Reason: Pain, moderate (4-7) Last Admin: 10/23/16 10:02 Dose: 650 mg Acetylcysteine (Mucomyst 10% 4ml) 2 ml IH RBID [facility] Last Admin: 10/23/16 07:56 Dose: 2 ml Albuterol Sulfate (Albuterol 0.083% Inhal Mary (2.5 Mg/3 Ml) Ud) 2.5 mg INH RQ4 PRN PRN Reason: Shortness of Breath Last Admin: 10/23/16 07:56 Dose: 2.5 mg Amiodarone HCl (Cordarone) 200 mg PO DAILY [facility] Last Admin: 10/23/16 09:47 Dose: 200 mg Aspirin (Aspirin Chewable) 81 mg PEG DAILY [facility] Last Admin: 10/23/16 09:48 Dose: 81 mg Famotidine (Pepcid) 20 mg PO HS [facility] Last Admin: 10/22/16 21:15 Dose: 20 mg Guaifenesin (Mucinex La) 600 mg PO Q12 [facility] Last Admin: 10/23/16 09:46 Dose: 600 mg Hydrochlorothiazide (Microzide) 12.5 mg PO DAILY [facility] Last Admin: 10/23/16 09:48 Dose: 12.5 mg Meropenem 500 mg/ Sodium (Chloride) 100 mls @ 100 mls/hr IVPB Q8 [facility] Last Admin: 10/23/16 09:59 Dose: 100 mls/hr Lidocaine HCl (Lidocaine Hydrochloride Jelly 2% 5 Ml) 1 ml TOP DAILY PRN PRN Reason: Pain, Mild (1-3) Last Admin: 10/21/16 13:03 Dose: 1 ml Metoprolol Tartrate (Lopressor) 12.5 mg GT Q12 [facility] Last Admin: 10/23/16 09:47 Dose: 12.5 mg Ondansetron HCl (Zofran Inj) 4 mg IVP Q6 PRN PRN Reason: Nausea/Vomiting Last Admin: 10/23/16 09:49 Dose: 4 mg Sucralfate (Carafate Oral Susp) 1 gm PO QID [facility] Last Admin: 10/23/16 09:46 Dose: 1 gm Tiotropium [place] (Spiriva) 18 mcg INH DAILY [facility] Last Admin: 10/23/16 10:02 Dose: 18 mcg - Labs Labs: 10/23/16 05:40 10/23/16 05:40 PT 12.2 SECONDS (9.6-11.2) H 10/12/16 14:26 INR 1.17 (0.92-1.08) H 10/12/16 14:26 APTT 31.1 SECONDS (23.3-32.5) 10/12/16 14:26 - Respiratory Exam Respiratory Exam: Rales, Rhonchi - Cardiovascular Exam Cardiovascular Exam: REGULAR RHYTHM, +S1, +S2 - Additional Findings Additional findings: BALANCE WHEEL SCREW HOLE TAPPER NSR WBC 9.0 K+ 3.7 PULMONARY NOTE SEEN Assessment and Plan - Assessment and Plan (Free Text) Plan: CONTINUE AMIODARONE, METOPROLOL, ASPIRIN, HCTZ FOR POSSIBLE DISCHARGE TOMORROW AFTER COMPLETION IF IV ANTIBIOTICS
--- NOTE | 2016-10-23 10:57 | CP.PCM.PN ---
Subjective - Date & Time of Evaluation Date of Evaluation: 10/23/16 Time of Evaluation: 10:56 - Subjective Subjective: No new events reported overnight Patient appears to be stable Objective - Vital Signs/Intake and Output Vital Signs (last 24 hours): Temp Pulse Resp BP Pulse Ox 97.2 F L 66 20 124/68 98 10/23/16 08:12 10/23/16 09:47 10/23/16 08:12 10/23/16 09:47 10/23/16 08:12 Intake and Output: 10/23/16 10/23/16 06:59 18:59 Intake Total 340 Output Total 300 Balance 40 - Medications Medications: Current Medications Acetaminophen (Tylenol 325mg Tab) 650 mg PO ONCE PRN PRN Reason: Pain, moderate (4-7) Last Admin: 10/22/16 14:53 Dose: 650 mg Acetaminophen (Tylenol 325mg Tab) 650 mg PO Q4 PRN PRN Reason: Pain, moderate (4-7) Last Admin: 10/23/16 10:02 Dose: 650 mg Acetylcysteine (Mucomyst 10% 4ml) 2 ml IH RBID [facility] Last Admin: 10/23/16 07:56 Dose: 2 ml Albuterol Sulfate (Albuterol 0.083% Inhal [place] (2.5 Mg/3 Ml) Ud) 2.5 mg INH RQ4 PRN PRN Reason: Shortness of Breath Last Admin: 10/23/16 07:56 Dose: 2.5 mg Amiodarone HCl (Cordarone) 200 mg PO DAILY [facility] Last Admin: 10/23/16 09:47 Dose: 200 mg Aspirin (Aspirin Chewable) 81 mg PEG DAILY [facility] Last Admin: 10/23/16 09:48 Dose: 81 mg Famotidine (Pepcid) 20 mg PO HS [facility] Last Admin: 10/22/16 21:15 Dose: 20 mg Guaifenesin (Mucinex La) 600 mg PO Q12 [facility] Last Admin: 10/23/16 09:46 Dose: 600 mg Hydrochlorothiazide (Microzide) 12.5 mg PO DAILY [facility] Last Admin: 10/23/16 09:48 Dose: 12.5 mg Meropenem 500 mg/ Sodium (Chloride) 100 mls @ 100 mls/hr IVPB Q8 [facility] Last Admin: 10/23/16 09:59 Dose: 100 mls/hr Lidocaine HCl (Lidocaine Hydrochloride Jelly 2% 5 Ml) 1 ml TOP DAILY PRN PRN Reason: Pain, Mild (1-3) Last Admin: 10/21/16 13:03 Dose: 1 ml Metoprolol Tartrate (Lopressor) 12.5 mg GT Q12 [facility] Last Admin: 10/23/16 09:47 Dose: 12.5 mg Ondansetron HCl (Zofran Inj) 4 mg IVP Q6 PRN PRN Reason: Nausea/Vomiting Last Admin: 10/23/16 09:49 Dose: 4 mg Sucralfate (Carafate Oral Susp) 1 gm PO QID [facility] Last Admin: 10/23/16 09:46 Dose: 1 gm Tiotropium [place] (Spiriva) 18 mcg INH DAILY [facility] Last Admin: 10/23/16 10:02 Dose: 18 mcg - Labs Labs: 10/23/16 05:40 10/23/16 05:40 PT 12.2 SECONDS (9.6-11.2) H 10/12/16 14:26 INR 1.17 (0.92-1.08) H 10/12/16 14:26 APTT 31.1 SECONDS (23.3-32.5) 10/12/16 14:26 - Constitutional Appears: No Acute Distress - ENT Exam ENT Exam: Mucous Membranes Moist - Respiratory Exam Respiratory Exam: absent: Chest Wall Tenderness - Extremities Exam Extremities Exam: absent: Calf Tenderness - Back Exam Back Exam: absent: CVA tenderness (L), CVA tenderness (R) Assessment and Plan - Assessment and Plan (Free Text) Assessment: plan: [place] resolving hyperkalemia - seems to be resolved on low dose hctz and bp seems to be tolerating it at this point. ontinue monitoring
--- NOTE | 2016-10-23 16:56 | PN ---
DATE: 10/23/2016 ROOM: 411. SUBJECTIVE: This is a 71-year-old male with recent acute exacerbation of COPD and concomitant pneumo walter and is now being followed closely for metabolic management. His latest glucose levels are fluctu ating, but much improved at this time and have ranged from 95-124 mg/dL. His latest chemistry showed a BUN of 50, sodium 139, potassium 3.7, chloride 103, CO2 24, glucose 84 and creatinine 1.3. So, at this time, we will continue the present cardiac management for the recent congestive heart failure a nd also the concomitant acute exacerbation of chronic obstructive pulmonary disease as noted. We rafiq l hold off the initiation of any kind of oral steroid therapy as he remains clinically and biochemica lly euadrenal at this time as noted. We will follow and advise accordingly. Anabella Sebastian MD cc: [id number] TT: 10/23/2016 16:55:16 Confirmation # [id number] Dictation # [id number] brandon
--- NOTE | 2016-10-23 21:33 | CP.PCM.PN ---
Subjective - Date & Time of Evaluation Date of Evaluation: 10/23/16 Time of Evaluation: 22:22 - Subjective Subjective: Above noted Continues to improve Objective - Vital Signs/Intake and Output Vital Signs (last 24 hours): Temp Pulse Resp BP Pulse Ox 97.3 F L 63 20 106/59 L 99 10/23/16 19:21 10/23/16 19:21 10/23/16 19:21 10/23/16 19:21 10/23/16 19:21 Intake and Output: 10/23/16 10/24/16 18:59 06:59 Intake Total 1020 Output Total 650 Balance 370 - Medications Medications: Current Medications Acetaminophen (Tylenol 325mg Tab) 650 mg PO ONCE PRN PRN Reason: Pain, moderate (4-7) Last Admin: 10/22/16 14:53 Dose: 650 mg Acetaminophen (Tylenol 325mg Tab) 650 mg PO Q4 PRN PRN Reason: Pain, moderate (4-7) Last Admin: 10/23/16 16:18 Dose: 650 mg Acetylcysteine (Mucomyst 10% 4ml) 2 ml IH RBID [facility] Last Admin: 10/23/16 07:56 Dose: 2 ml Albuterol Sulfate (Albuterol 0.083% Inhal Mary (2.5 Mg/3 Ml) Ud) 2.5 mg INH RQ4 PRN PRN Reason: Shortness of Breath Last Admin: 10/23/16 07:56 Dose: 2.5 mg Amiodarone HCl (Cordarone) 200 mg PO DAILY [facility] Last Admin: 10/23/16 09:47 Dose: 200 mg Aspirin (Aspirin Chewable) 81 mg PEG DAILY [facility] Last Admin: 10/23/16 09:48 Dose: 81 mg Famotidine (Pepcid) 20 mg PO HS [facility] Last Admin: 10/22/16 21:15 Dose: 20 mg Guaifenesin (Mucinex La) 600 mg PO Q12 [facility] Last Admin: 10/23/16 09:46 Dose: 600 mg Hydrochlorothiazide (Microzide) 12.5 mg PO DAILY [facility] Last Admin: 10/23/16 09:48 Dose: 12.5 mg Meropenem 500 mg/ Sodium (Chloride) 100 mls @ 100 mls/hr IVPB Q8 [facility] Last Admin: 10/23/16 16:16 Dose: 100 mls/hr Lidocaine HCl (Lidocaine Hydrochloride Jelly 2% 5 Ml) 1 ml TOP DAILY PRN PRN Reason: Pain, Mild (1-3) Last Admin: 10/21/16 13:03 Dose: 1 ml Metoprolol Tartrate (Lopressor) 12.5 mg GT Q12 [facility] Last Admin: 10/23/16 09:47 Dose: 12.5 mg Ondansetron HCl (Zofran Inj) 4 mg IVP Q6 PRN PRN Reason: Nausea/Vomiting Last Admin: 10/23/16 17:54 Dose: 4 mg Sucralfate (Carafate Oral Susp) 1 gm PO QID [facility] Last Admin: 10/23/16 16:14 Dose: 1 gm Tiotropium [place] (Spiriva) 18 mcg INH DAILY [facility] Last Admin: 10/23/16 10:02 Dose: 18 mcg - Labs Labs: 10/23/16 05:40 10/23/16 05:40 PT 12.2 SECONDS (9.6-11.2) H 10/12/16 14:26 INR 1.17 (0.92-1.08) H 10/12/16 14:26 APTT 31.1 SECONDS (23.3-32.5) 10/12/16 14:26 - Respiratory Exam Respiratory Exam: NORMAL BREATHING PATTERN - Cardiovascular Exam Cardiovascular Exam: REGULAR RHYTHM - GI/Abdominal Exam GI & Abdominal Exam: Normal Bowel Sounds Assessment and Plan - Assessment and Plan (Free Text) Assessment: s/p Acute Respiratory Failure Aspiration?? Pneumonia COPD Hx Klebsiella + ESBL E coli Pneumonia Hx L pneumothorax Pulmonary ID Day #9 ABX S/P V-fib/ V-tach 2 to pulmonary dx A-fib CAD S/P CABG Amiodorone Cardiology SMITA/ ?CKD Hx Hyperkalemia etiol ?? Adrenal insufficiency ? K+ wnl on low dose HCTZ Nephrology Cortisol ACTH level ?? Endo consult Chronic chest wall pain Hx Dec oral intake swallowing?? PEG Jevity GI C-diff negative
[2016-10-24] MEDS: Meropenem 500 MG in Sodium Chloride 0.9% 100 ML IVPB SCH ×3 (00:49→16:00)
[2016-10-24] MEDS: Albuterol 0.083% Inhal Sol (2.5 mg/3 mL) UD INH PRN (08:14)
[2016-10-24] MEDS: Acetylcysteine 10% 4 ML IH SCH (08:15)
[2016-10-24] MEDS: Tiotropium 18 mcg Cap For Inhalation INH SCH (08:29)
[2016-10-24] MEDS: Sucralfate 1 gm/10 ml Oral Susp UD PO SCH ×2 (08:29→13:06)
[2016-10-24] MEDS: guaiFENesin 600 mg ER Tab PO SCH (08:31)
[2016-10-24 08:34] VITALS: RESP 20
--- NOTE | 2016-10-24 09:27 | CP.PCM.PN ---
Subjective - Date & Time of Evaluation Date of Evaluation: 10/24/16 Time of Evaluation: 09:26 - Subjective Subjective: Patient and bed no significant changes reported overnight Electrolyte noted to be okay serum potassium is okay kidney function stable Patient going to subacute unit today and he need follow-up by repeat the blood work in about couple of days and monitor serum potassium Cut down hydrochlorothiazide to 3 days a week Thursday. Objective - Vital Signs/Intake and Output Vital Signs (last 24 hours): Temp Pulse Resp BP Pulse Ox 98.1 F 61 20 123/72 96 10/24/16 08:34 10/24/16 08:34 10/24/16 08:34 10/24/16 08:34 10/24/16 08:34 Intake and Output: 10/24/16 10/24/16 06:59 18:59 Intake Total 340 Output Total 200 Balance 140 - Medications Medications: Current Medications Acetaminophen (Tylenol 325mg Tab) 650 mg PO ONCE PRN PRN Reason: Pain, moderate (4-7) Last Admin: 10/22/16 14:53 Dose: 650 mg Acetaminophen (Tylenol 325mg Tab) 650 mg PO Q4 PRN PRN Reason: Pain, moderate (4-7) Last Admin: 10/24/16 08:36 Dose: 650 mg Acetylcysteine (Mucomyst 10% 4ml) 2 ml IH RBID [facility] Last Admin: 10/24/16 08:15 Dose: 2 ml Albuterol Sulfate (Albuterol 0.083% Inhal Mary (2.5 Mg/3 Ml) Ud) 2.5 mg INH RQ4 PRN PRN Reason: Shortness of Breath Last Admin: 10/24/16 08:14 Dose: 2.5 mg Amiodarone HCl (Cordarone) 200 mg PO DAILY [facility] Last Admin: 10/24/16 08:31 Dose: 200 mg Aspirin (Aspirin Chewable) 81 mg PEG DAILY [facility] Last Admin: 10/24/16 08:31 Dose: 81 mg Famotidine (Pepcid) 20 mg PO HS [facility] Last Admin: 10/23/16 22:04 Dose: 20 mg Guaifenesin (Mucinex La) 600 mg PO Q12 [facility] Last Admin: 10/24/16 08:31 Dose: 600 mg Hydrochlorothiazide (Microzide) 12.5 mg PO DAILY [facility] Last Admin: 10/24/16 08:32 Dose: 12.5 mg Meropenem 500 mg/ Sodium (Chloride) 100 mls @ 100 mls/hr IVPB Q8 [facility] Last Admin: 10/24/16 08:31 Dose: 100 mls/hr Lidocaine HCl (Lidocaine Hydrochloride Jelly 2% 5 Ml) 1 ml TOP DAILY PRN PRN Reason: Pain, Mild (1-3) Last Admin: 10/21/16 13:03 Dose: 1 ml Metoprolol Tartrate (Lopressor) 12.5 mg GT Q12 [facility] Last Admin: 10/24/16 08:29 Dose: 12.5 mg Ondansetron HCl (Zofran Inj) 4 mg IVP Q6 PRN PRN Reason: Nausea/Vomiting Last Admin: 10/23/16 17:54 Dose: 4 mg Sucralfate (Carafate Oral Susp) 1 gm PO QID [facility] Last Admin: 10/24/16 08:29 Dose: 1 gm Tiotropium [place] (Spiriva) 18 mcg INH DAILY [facility] Last Admin: 10/24/16 08:29 Dose: 18 mcg - Labs Labs: 10/23/16 05:40 10/23/16 05:40 PT 12.2 SECONDS (9.6-11.2) H 10/12/16 14:26 INR 1.17 (0.92-1.08) H 10/12/16 14:26 APTT 31.1 SECONDS (23.3-32.5) 10/12/16 14:26
--- NOTE | 2016-10-24 10:33 | CP.PCM.PN ---
Subjective - Date & Time of Evaluation Date of Evaluation: 10/24/16 Time of Evaluation: 10:00 - Subjective Subjective: NO NEW COMPLAINTS BREATHING BETTER Objective - Vital Signs/Intake and Output Vital Signs (last 24 hours): Temp Pulse Resp BP Pulse Ox 98.1 F 61 20 123/72 96 10/24/16 08:34 10/24/16 08:34 10/24/16 08:34 10/24/16 08:34 10/24/16 08:34 Intake and Output: 10/24/16 10/24/16 06:59 18:59 Intake Total 340 Output Total 200 Balance 140 - Medications Medications: Current Medications Acetaminophen (Tylenol 325mg Tab) 650 mg PO ONCE PRN PRN Reason: Pain, moderate (4-7) Last Admin: 10/22/16 14:53 Dose: 650 mg Acetaminophen (Tylenol 325mg Tab) 650 mg PO Q4 PRN PRN Reason: Pain, moderate (4-7) Last Admin: 10/24/16 08:36 Dose: 650 mg Acetylcysteine (Mucomyst 10% 4ml) 2 ml IH RBID [facility] Last Admin: 10/24/16 08:15 Dose: 2 ml Albuterol Sulfate (Albuterol 0.083% Inhal Mary (2.5 Mg/3 Ml) Ud) 2.5 mg INH RQ4 PRN PRN Reason: Shortness of Breath Last Admin: 10/24/16 08:14 Dose: 2.5 mg Amiodarone HCl (Cordarone) 200 mg PO DAILY [facility] Last Admin: 10/24/16 08:31 Dose: 200 mg Aspirin (Aspirin Chewable) 81 mg PEG DAILY [facility] Last Admin: 10/24/16 08:31 Dose: 81 mg Famotidine (Pepcid) 20 mg PO HS [facility] Last Admin: 10/23/16 22:04 Dose: 20 mg Guaifenesin (Mucinex La) 600 mg PO Q12 [facility] Last Admin: 10/24/16 08:31 Dose: 600 mg Hydrochlorothiazide (Microzide) 12.5 mg PO DAILY [facility] Last Admin: 10/24/16 08:32 Dose: 12.5 mg Meropenem 500 mg/ Sodium (Chloride) 100 mls @ 100 mls/hr IVPB Q8 [facility] Last Admin: 10/24/16 08:31 Dose: 100 mls/hr Lidocaine HCl (Lidocaine Hydrochloride Jelly 2% 5 Ml) 1 ml TOP DAILY PRN PRN Reason: Pain, Mild (1-3) Last Admin: 10/21/16 13:03 Dose: 1 ml Metoprolol Tartrate (Lopressor) 12.5 mg GT Q12 [facility] Last Admin: 10/24/16 08:29 Dose: 12.5 mg Ondansetron HCl (Zofran Inj) 4 mg IVP Q6 PRN PRN Reason: Nausea/Vomiting Last Admin: 10/23/16 17:54 Dose: 4 mg Sucralfate (Carafate Oral Susp) 1 gm PO QID [facility] Last Admin: 10/24/16 08:29 Dose: 1 gm Tiotropium [place] (Spiriva) 18 mcg INH DAILY [facility] Last Admin: 10/24/16 08:29 Dose: 18 mcg - Labs Labs: 10/23/16 05:40 10/23/16 05:40 PT 12.2 SECONDS (9.6-11.2) H 10/12/16 14:26 INR 1.17 (0.92-1.08) H 10/12/16 14:26 APTT 31.1 SECONDS (23.3-32.5) 10/12/16 14:26 - Respiratory Exam Respiratory Exam: Rhonchi - Cardiovascular Exam Cardiovascular Exam: REGULAR RHYTHM, +S1, +S2 Assessment and Plan - Assessment and Plan (Free Text) Assessment: PNEUMONIA-TREATD COPD CAD S/P ATRIAL FIBRILLATION Plan: LAST DAY OF IV ANTIBIOTICS TODAY CONTINUE ASPIRIN, AMIODARONE AND METOPROLOL FOR PROBABLE DISCHARGE TO SUBACUTE CARE TODAY
--- NOTE | 2016-10-24 11:24 | CP.PCM.PN ---
Subjective - Date & Time of Evaluation Date of Evaluation: 10/24/16 Time of Evaluation: 11:20 - Subjective Subjective: Doing well. Claims to feel okay. Some residual congestion is heard when he coughs, but he is doing well expectorating. His vital signs remain stable and he has no leukocytosis. His CXR yesterday was good. He can complete his antibiotic regimen today and be discharged later this afternoon to [facility]. Objective - Vital Signs/Intake and Output Vital Signs (last 24 hours): Temp Pulse Resp BP Pulse Ox 98.1 F 61 20 123/72 96 10/24/16 08:34 10/24/16 08:34 10/24/16 08:34 10/24/16 08:34 10/24/16 08:34 Intake and Output: 10/23/16 10/24/16 23:59 11:59 Intake Total 680 340 Output Total 350 200 Balance 330 140 - Medications Medications: Current Medications Acetaminophen (Tylenol 325mg Tab) 650 mg PO ONCE PRN PRN Reason: Pain, moderate (4-7) Last Admin: 10/22/16 14:53 Dose: 650 mg Acetaminophen (Tylenol 325mg Tab) 650 mg PO Q4 PRN PRN Reason: Pain, moderate (4-7) Last Admin: 10/24/16 08:36 Dose: 650 mg Albuterol Sulfate (Albuterol 0.083% Inhal Mary (2.5 Mg/3 Ml) Ud) 2.5 mg INH RQ4 PRN PRN Reason: Shortness of Breath Last Admin: 10/24/16 08:14 Dose: 2.5 mg Amiodarone HCl (Cordarone) 200 mg PO DAILY [facility] Last Admin: 10/24/16 08:31 Dose: 200 mg Aspirin (Aspirin Chewable) 81 mg PEG DAILY [facility] Last Admin: 10/24/16 08:31 Dose: 81 mg Famotidine (Pepcid) 20 mg PO HS [facility] Last Admin: 10/23/16 22:04 Dose: 20 mg Guaifenesin (Mucinex La) 600 mg PO Q12 [facility] Last Admin: 10/24/16 08:31 Dose: 600 mg Hydrochlorothiazide (Microzide) 12.5 mg PO DAILY [facility] Last Admin: 10/24/16 08:32 Dose: 12.5 mg Meropenem 500 mg/ Sodium (Chloride) 100 mls @ 100 mls/hr IVPB Q8 [facility] Last Admin: 10/24/16 08:31 Dose: 100 mls/hr Lidocaine HCl (Lidocaine Hydrochloride Jelly 2% 5 Ml) 1 ml TOP DAILY PRN PRN Reason: Pain, Mild (1-3) Last Admin: 10/21/16 13:03 Dose: 1 ml Metoprolol Tartrate (Lopressor) 12.5 mg GT Q12 [facility] Last Admin: 10/24/16 08:29 Dose: 12.5 mg Ondansetron HCl (Zofran Inj) 4 mg IVP Q6 PRN PRN Reason: Nausea/Vomiting Last Admin: 10/23/16 17:54 Dose: 4 mg Sucralfate (Carafate Oral Susp) 1 gm PO QID [facility] Last Admin: 10/24/16 08:29 Dose: 1 gm Tiotropium [place] (Spiriva) 18 mcg INH DAILY [facility] Last Admin: 10/24/16 08:29 Dose: 18 mcg - Labs Labs: 10/23/16 05:40 10/23/16 05:40 PT 12.2 SECONDS (9.6-11.2) H 10/12/16 14:26 INR 1.17 (0.92-1.08) H 10/12/16 14:26 APTT 31.1 SECONDS (23.3-32.5) 10/12/16 14:26 Assessment and Plan (1) Pneumonia Status: Resolved (2) Sepsis Status: Resolved (3) Respiratory failure with hypercapnia Status: Resolved (4) COPD (chronic obstructive pulmonary disease) Status: Chronic
--- NOTE | 2016-10-24 13:28 | PN ---
DATE: 10/24/2016 ROOM: 411 This is a 71-year-old male with recent congestive heart failure and supervening exacerbation of COPD and has since then improved clinically and metabolically as noted thereof. His glycemic levels, however, are fluctuating, but improved, and the latest chemistries showed a BUN of 35, sodium 139, potassium 3.7, chloride 103, CO2 24, glucose 84 and creatinine 1.3. His glucose v alues have ranged from 120-124 and 152 mg/dL. There are occasional low normal glucose values, especi ally prebreakfast as noted. The serum cortisol levels have been reported as normal. The serum corti naomi level is 7.4 with an ACTH of 18. So at this time, this would exclude the possibility of underlying secondary hypoadrenalism or adrenal insufficiency at this time. We will continue the aforementioned at a lower dose to optimize metabol ic control. We will follow. Anabella Sebastian MD cc: [id number] TT: 10/24/2016 13:28:35 Confirmation # [id number] Dictation # [id number] en
--- NOTE | 2016-10-24 13:53 | CP.PCM.PN ---
Subjective - Date & Time of Evaluation Date of Evaluation: 10/24/16 Time of Evaluation: 08:00 - Subjective Subjective: improving less congestion Objective - Vital Signs/Intake and Output Vital Signs (last 24 hours): Temp Pulse Resp BP Pulse Ox 97.4 F L 60 20 111/62 99 10/24/16 13:00 10/24/16 13:00 10/24/16 13:00 10/24/16 13:00 10/24/16 13:00 Intake and Output: 10/24/16 10/24/16 06:59 18:59 Intake Total 340 Output Total 200 Balance 140 - Medications Medications: Current Medications Acetaminophen (Tylenol 325mg Tab) 650 mg PO ONCE PRN PRN Reason: Pain, moderate (4-7) Last Admin: 10/22/16 14:53 Dose: 650 mg Acetaminophen (Tylenol 325mg Tab) 650 mg PO Q4 PRN PRN Reason: Pain, moderate (4-7) Last Admin: 10/24/16 08:36 Dose: 650 mg Albuterol Sulfate (Albuterol 0.083% Inhal Mary (2.5 Mg/3 Ml) Ud) 2.5 mg INH RQ4 PRN PRN Reason: Shortness of Breath Last Admin: 10/24/16 08:14 Dose: 2.5 mg Amiodarone HCl (Cordarone) 200 mg PO DAILY [facility] Last Admin: 10/24/16 08:31 Dose: 200 mg Aspirin (Aspirin Chewable) 81 mg PEG DAILY [facility] Last Admin: 10/24/16 08:31 Dose: 81 mg Famotidine (Pepcid) 20 mg PO HS [facility] Last Admin: 10/23/16 22:04 Dose: 20 mg Guaifenesin (Mucinex La) 600 mg PO Q12 [facility] Last Admin: 10/24/16 08:31 Dose: 600 mg Hydrochlorothiazide (Microzide) 12.5 mg PO DAILY [facility] Last Admin: 10/24/16 08:32 Dose: 12.5 mg Meropenem 500 mg/ Sodium (Chloride) 100 mls @ 100 mls/hr IVPB Q8 [facility] Last Admin: 10/24/16 08:31 Dose: 100 mls/hr Lidocaine HCl (Lidocaine Hydrochloride Jelly 2% 5 Ml) 1 ml TOP DAILY PRN PRN Reason: Pain, Mild (1-3) Last Admin: 10/21/16 13:03 Dose: 1 ml Metoprolol Tartrate (Lopressor) 12.5 mg GT Q12 [facility] Last Admin: 10/24/16 08:29 Dose: 12.5 mg Ondansetron HCl (Zofran Inj) 4 mg IVP Q6 PRN PRN Reason: Nausea/Vomiting Last Admin: 10/24/16 13:07 Dose: 4 mg Sucralfate (Carafate Oral Susp) 1 gm PO QID [facility] Last Admin: 10/24/16 13:06 Dose: 1 gm Tiotropium [place] (Spiriva) 18 mcg INH DAILY [facility] Last Admin: 10/24/16 08:29 Dose: 18 mcg - Labs Labs: 10/23/16 05:40 10/23/16 05:40 PT 12.2 SECONDS (9.6-11.2) H 10/12/16 14:26 INR 1.17 (0.92-1.08) H 10/12/16 14:26 APTT 31.1 SECONDS (23.3-32.5) 10/12/16 14:26 - Constitutional Appears: Non-toxic, Chronically Ill - Head Exam Head Exam: NORMOCEPHALIC - Eye Exam Eye Exam: absent: Scleral icterus - ENT Exam ENT Exam: Mucous Membranes Dry - Neck Exam Neck Exam: absent: Lymphadenopathy - Respiratory Exam Respiratory Exam: Decreased Breath Sounds, Rhonchi - Cardiovascular Exam Cardiovascular Exam: REGULAR RHYTHM, +S1, +S2 - GI/Abdominal Exam GI & Abdominal Exam: Distended, Soft - Rectal Exam Rectal Exam: Deferred Assessment and Plan (1) COPD (chronic obstructive pulmonary disease) Status: Chronic (2) COPD (chronic obstructive pulmonary disease) with acute bronchitis Status: Acute (3) Atrial fibrillation Status: Acute (4) Atrial fibrillation with RVR Status: Acute
[2016-10-24 16:30] VITALS: BP 125/68; PULSE 61; TEMP 97.5; O2SAT 100
[2016-10-24] MEDS ORDERED: Sucralfate 1 gm/10 ml Oral Susp UD PO SCH (16:30)
--- NOTE | 2016-10-24 18:34 | CP.PCM.PN ---
Subjective - Date & Time of Evaluation Date of Evaluation: 10/24/16 Time of Evaluation: 22:22 - Subjective Subjective: Continues to improve Objective - Vital Signs/Intake and Output Vital Signs (last 24 hours): Temp Pulse Resp BP Pulse Ox 97.5 F L 61 20 125/68 100 10/24/16 16:00 10/24/16 16:00 10/24/16 16:00 10/24/16 16:00 10/24/16 16:00 Intake and Output: 10/24/16 10/24/16 06:59 18:59 Intake Total 340 Output Total 200 Balance 140 - Medications Medications: Current Medications Acetaminophen (Tylenol 325mg Tab) 650 mg PO ONCE PRN PRN Reason: Pain, moderate (4-7) Last Admin: 10/22/16 14:53 Dose: 650 mg Acetaminophen (Tylenol 325mg Tab) 650 mg PO Q4 PRN PRN Reason: Pain, moderate (4-7) Last Admin: 10/24/16 16:01 Dose: 650 mg Albuterol Sulfate (Albuterol 0.083% Inhal Mary (2.5 Mg/3 Ml) Ud) 2.5 mg INH RQ4 PRN PRN Reason: Shortness of Breath Last Admin: 10/24/16 08:14 Dose: 2.5 mg Amiodarone HCl (Cordarone) 200 mg PO DAILY [facility] Last Admin: 10/24/16 08:31 Dose: 200 mg Aspirin (Aspirin Chewable) 81 mg PEG DAILY [facility] Last Admin: 10/24/16 08:31 Dose: 81 mg Famotidine (Pepcid) 20 mg PO HS [facility] Last Admin: 10/23/16 22:04 Dose: 20 mg Guaifenesin (Mucinex La) 600 mg PO Q12 [facility] Last Admin: 10/24/16 08:31 Dose: 600 mg Hydrochlorothiazide (Microzide) 12.5 mg PO DAILY [facility] Last Admin: 10/24/16 08:32 Dose: 12.5 mg Meropenem 500 mg/ Sodium (Chloride) 100 mls @ 100 mls/hr IVPB Q8 [facility] Last Admin: 10/24/16 16:00 Dose: 100 mls/hr Lidocaine HCl (Lidocaine Hydrochloride Jelly 2% 5 Ml) 1 ml TOP DAILY PRN PRN Reason: Pain, Mild (1-3) Last Admin: 10/21/16 13:03 Dose: 1 ml Metoprolol Tartrate (Lopressor) 12.5 mg GT Q12 [facility] Last Admin: 10/24/16 08:29 Dose: 12.5 mg Ondansetron HCl (Zofran Inj) 4 mg IVP Q6 PRN PRN Reason: Nausea/Vomiting Last Admin: 10/24/16 13:07 Dose: 4 mg Sucralfate (Carafate Oral Susp) 1 gm PO ACHS [facility] Last Admin: 10/24/16 16:02 Dose: 1 gm Tiotropium [place] (Spiriva) 18 mcg INH DAILY [facility] Last Admin: 10/24/16 08:29 Dose: 18 mcg - Labs Labs: 10/23/16 05:40 10/23/16 05:40 PT 12.2 SECONDS (9.6-11.2) H 10/12/16 14:26 INR 1.17 (0.92-1.08) H 10/12/16 14:26 APTT 31.1 SECONDS (23.3-32.5) 10/12/16 14:26 - Respiratory Exam Respiratory Exam: NORMAL BREATHING PATTERN - Cardiovascular Exam Cardiovascular Exam: REGULAR RHYTHM - GI/Abdominal Exam GI & Abdominal Exam: Normal Bowel Sounds Assessment and Plan - Assessment and Plan (Free Text) Assessment: Aspiration?? Pneumonia COPD s/p Acute Respiratory Failure Hx Klebsiella + ESBL E coli Pneumonia Hx L pneumothorax Pulmonary ID Day #10 ABX S/P V-fib/ V-tach 2 to pulmonary dx A-fib CAD S/P CABG Amiodorone Cardiology SMITA/ ?CKD Hx Hyperkalemia etiol ?? Adrenal insufficiency ? K+ wnl on low dose HCTZ Nephrology Cortisol ACTH level ?? Endo consult Chronic chest wall pain Hx Dec oral intake swallowing?? PEG Jevity GI C-diff negative
--- NOTE | 2016-10-27 15:48 | CP.PCM.HP ---
History of Present Illness - History of Present Illness History of Present Illness: Subjective: 71 yo admitted from [place] in acute respiratory distress. Pt intubated in the ER Pt has a hx of COPD Heart dx was recently hospitalized for prolonged stay in the ICU (s/p defibrillation for V-fib x 2) Objective - Vital Signs/Intake and Output Vital Signs (last 24 hours): Temp Pulse Resp BP Pulse Ox 100.7 F H 101 H 12 113/69 92 L 10/12/16 14:45 10/12/16 17:11 10/12/16 17:11 10/12/16 17:11 10/12/16 17:15 - Medications Medications: Current Medications Albuterol/Ipratropium (Duoneb 3 Mg/0.5 Mg (3 Ml) Ud) 3 ml INH RQID [facility] Amiodarone HCl (Cordarone) 200 mg PO DAILY [facility] Aspirin (Aspirin Chewable) 81 mg PEG DAILY [facility] Enoxaparin Sodium (Lovenox) 40 mg SC DAILY [facility] PRN Reason: Protocol Furosemide (Lasix) 40 mg IV DAILY [facility] Stop: 10/13/16 09:01 Propofol (Diprivan) 100 mls @ 1.851 mls/hr IV .Q24H [facility]; 5 MCG/KG/MIN PRN Reason: Protocol Stop: 10/13/16 16:01 Last Admin: 10/12/16 15:45 Dose: 1.851 mls/hr Ciprofloxacin (Cipro 400mg/200ml Dsw) 200 mls @ 200 mls/hr IVPB Q12 [facility] Vancomycin HCl 500 mg/ Sodium (Chloride) 100 mls @ 100 mls/hr IVPB Q12 [facility] Piperacillin Sod/Tazobactam (Sod 2.25 gm/ Sodium Chloride) 100 mls @ 100 mls/ hr IVPB Q6 [facility] Metoprolol Tartrate (Lopressor) 12.5 mg GT Q12 [facility] Pantoprazole Sodium (Protonix Inj) 40 mg IVP DAILY [facility] - Labs Labs: PT 12.2 SECONDS (9.6-11.2) H 10/12/16 14:26 INR 1.17 (0.92-1.08) H 10/12/16 14:26 APTT 31.1 SECONDS (23.3-32.5) 10/12/16 14:26 - Respiratory Exam Respiratory Exam: Respiratory Distress - Cardiovascular Exam Cardiovascular Exam: Irregular Rhythm - GI/Abdominal Exam GI & Abdominal Exam: Normal Bowel Sounds Assessment and Plan - Assessment and Plan (Free Text) Assessment: Acute Respiratory Failure Aspiration?? COPD S/P Klebsiella RLL Pneumonia? S/P L pneumothorax Intubated ABX ICU Pulmonary S/P V-fib/ V-tach 2 to pulmonary dx A-fib CAD S/P CABG Amiodorone Cardiology Hyperkalemia etiol ?? s/p SMITA/ CKD Nephrology Cortisol level ?? Chronic chest wall pain Hx Dec oral intake swallowing?? PEG Jevity and oral feedings s/p + C-diff + Ag -toxin Present on Admission - Present on Admission Any Indicators Present on Admission: No Past Patient History - Infectious Disease Hx of Infectious Diseases: None - Tetanus Immunizations Tetanus Immunization: Unknown - Past Medical History & Family History Past Medical History?: Yes - Past Social History Smoking Status: Former Smoker Chewing Tobacco Use: No Cigar Use: No Alcohol: None Drugs: Denies Home Situation {Lives}: Alone - CARDIAC Hx Atrial Fibrillation: Yes Hx Cardia Arrhythmia: Yes Hx Congestive Heart Failure: Yes Hx Hypercholesterolemia: Yes Hx Hypertension: Yes Hx Peripheral Edema: Yes - PULMONARY Hx Asthma: Yes Hx Bronchitis: Yes Hx Chronic Obstructive Pulmonary Disease (COPD): Yes Hx Emphysema: Yes Hx Pneumonia: Yes - NEUROLOGICAL Hx Neurological Disorder: No - HEENT Hx Cataracts: Yes (right eye) - RENAL Hx Chronic Kidney Disease: No - ENDOCRINE/METABOLIC Hx Diabetes Mellitus Type 2: Yes Hx Hypothyroidism: No - HEMATOLOGICAL/ONCOLOGICAL Hx Anemia: Yes Hx Human Immunodeficiency Virus (HIV): No - INTEGUMENTARY Hx Psoriasis: Yes - MUSCULOSKELETAL/RHEUMATOLOGICAL Hx Falls: No - GASTROINTESTINAL Hx Diverticulitis: Yes - GENITOURINARY/GYNECOLOGICAL Hx Prostate Problems: Yes - PSYCHIATRIC Hx Substance Use: No - SURGICAL HISTORY Hx Coronary Artery Bypass Graft: Yes (1994) Hx Coronary Stent: Yes (2000) Other/Comment: SUB-TOTAL GASTRECTOMY FOR PUD WITH VENTRAL HERNIA REPAIRS SUBSEQUENTLY - ANESTHESIA Hx Anesthesia: Yes Hx Anesthesia Reactions: No Hx Malignant Hyperthermia: No Meds Allergies/Adverse Reactions: Allergies Allergy/AdvReac Type Severity Reaction Status Date / Time gemfibrozil [From Lopid] Allergy RASH Verified 10/12/16 14:03 morphine Allergy SHORTNESS Verified 10/12/16 14:03 OF BREATH Results - Vital Signs Recent Vital Signs: Last Vital Signs Temp 97.5 F L 10/24/16 16:00 Pulse 61 10/24/16 16:00 Resp 20 10/24/16 16:00 BP 125/68 10/24/16 16:00 Pulse Ox 100 10/24/16 16:00 - Labs Result Diagrams: 10/23/16 05:40 10/23/16 05:40 Assessment & Plan - Date & Time Date: 10/12/16
== END 2016-10-24 20:10 | DRG 871 ==
LOC: H.ER 13:59 → H.ERHOLD 15:46 → H.ICU/CCU 17:45 → H.TEL 10-16 20:28
PROVIDERS: ADMIT Family Medicine Geriatric Medicine; ATTEND Family Medicine Geriatric Medicine
PROC: 5A1945Z Respiratory Ventilation, 24-96 Consecutive Hours (ICD-10-PCS; principal; 2016-10-12)
PROC: 0BH17EZ Insertion of Endotracheal Airway into Trachea, Via Natural or Artificial Opening (ICD-10-PCS; 2016-10-12)
PROC: 3E0G76Z Introduction of Nutritional Substance into Upper GI, Via Natural or Artificial Opening (ICD-10-PCS; 2016-10-15)
PROC: 0HBRXZZ Excision of Toe Nail, External Approach (ICD-10-PCS; 2016-10-23)
PROC: 0HBRXZZ Excision of Toe Nail, External Approach (ICD-10-PCS; 2016-10-23)
PROC: 0HBRXZZ Excision of Toe Nail, External Approach (ICD-10-PCS; 2016-10-23)
PROC: 0HBRXZZ Excision of Toe Nail, External Approach (ICD-10-PCS; 2016-10-23)
PROC: 0HBRXZZ Excision of Toe Nail, External Approach (ICD-10-PCS; 2016-10-23)
DX: A41.9 Sepsis, unspecified organism (principal); J96.02 Acute respiratory failure with hypercapnia; J69.0 Pneumonitis due to inhalation of food and vomit; J96.01 Acute respiratory failure with hypoxia; N17.9 Acute kidney failure, unspecified; G93.41 Metabolic encephalopathy; E87.0 Hyperosmolality and hypernatremia; E87.2 Acidosis; J44.0 Chronic obstructive pulmonary disease with (acute) lower respiratory infection; I13.0 Hypertensive heart and chronic kidney disease with heart failure and stage 1 through stage 4 chronic kidney disease, or unspecified chronic kidney disease; I50.42 Chronic combined systolic (congestive) and diastolic (congestive) heart failure; I42.9 Cardiomyopathy, unspecified; J44.1 Chronic obstructive pulmonary disease with (acute) exacerbation; L89.620 Pressure ulcer of left heel, unstageable; L89.610 Pressure ulcer of right heel, unstageable; E87.5 Hyperkalemia; I48.0 Paroxysmal atrial fibrillation; N18.3 Chronic kidney disease, stage 3 (moderate); I25.10 Atherosclerotic heart disease of native coronary artery without angina pectoris; D50.9 Iron deficiency anemia, unspecified; J45.909 Unspecified asthma, uncomplicated; N40.0 Benign prostatic hyperplasia without lower urinary tract symptoms; E78.5 Hyperlipidemia, unspecified; E78.00 Pure hypercholesterolemia, unspecified; E86.0 Dehydration; E11.22 Type 2 diabetes mellitus with diabetic chronic kidney disease; I48.2 Chronic atrial fibrillation; J20.9 Acute bronchitis, unspecified; D63.8 Anemia in other chronic diseases classified elsewhere; L60.8 Other nail disorders; G89.29 Other chronic pain; R07.89 Other chest pain; Y95 Nosocomial condition; Z95.1 Presence of aortocoronary bypass graft; Z95.5 Presence of coronary angioplasty implant and graft; Z93.1 Gastrostomy status; I25.2 Old myocardial infarction; Z79.01 Long term (current) use of anticoagulants; Z88.6 Allergy status to analgesic agent; Z87.891 Personal history of nicotine dependence; Z87.01 Personal history of pneumonia (recurrent); Z86.74 Personal history of sudden cardiac arrest; Z87.11 Personal history of peptic ulcer disease

== ENCOUNTER 2016-11-13 23:44 | Inpatient (IN) | payer MEDICARE ==
[2016-11-13 23:45] VITALS: PULSE 75; BMI 22.0
[2016-11-14] MEDS ORDERED: Albuterol 0.083% Inhal Sol (2.5 mg/3 mL) UD INH ONE (00:17)
[2016-11-14 00:31] LABS: BASO # 0.1 K/uL (0.0-0.2); BASO % 0.6 % (0.0-2.0); EOS # 0.1 K/uL (0.0-0.7); EOS % 0.4 % (0.0-4.0); HEMATOCRIT 28.2 % (35.0-51.0); LYMPH # 0.6 K/uL (1.0-4.3); LYMPH % 4.1 % (20.0-40.0); MEAN CELL VOLUME 91.6 fl (80.0-94.0); MEAN CORPUSCULAR HEMOGLOBIN 28.5 pg (27.0-31.0); MEAN CORPUSCULAR HGB CONC 31.1 g/dL (33.0-37.0); MEAN PLATELET VOLUME 8.6 fl (7.2-11.7); MONO % 6.4 % (0.0-10.0); NEUT % 88.5 % (50.0-75.0); PLATELET COUNT 298 K/uL (130-400); RED CELL DISTRIBUTION WIDTH 16.2 % (11.5-14.5); WHITE BLOOD COUNT 15.8 K/uL (4.8-10.8)
--- NOTE | 2016-11-14 00:33 | ED PDOC ---
HPI: SOB/CHF/COPD Time Seen by Provider: 11/13/16 23:54 Chief Complaint (Nursing): Respiratory Distress Chief Complaint (Provider): SOB History Per: Patient History/Exam Limitations: no limitations Onset/Duration Of Symptoms: Hrs Current Symptoms Are (Timing): Still Present Additional Complaint(s): 71yo male with PMHx including COPD, CHF, enlarged prostate, Afib, high cholesterol presents to the ED from [facility] for evaluation of SOB since 8 pm tonight. no chest pain or fever. Of note, patient follows with podiatry for chronic ulcers. Patient received lasix and nitro spray and was placed on CPAP in the field. EMS reports improvement after meds and CPAP. Upon arrival to ED, patient transferred to [facility] by respiratory. PCP: Dr. Smith Past Medical History Reviewed: Historical Data, Nursing Documentation, Vital Signs Vital Signs: Last Vital Signs Temp 98 F 11/14/16 04:34 Pulse 85 11/14/16 04:34 Resp 18 11/14/16 04:34 BP 140/86 11/14/16 04:34 Pulse Ox 100 11/14/16 03:50 - Medical History PMH: Anemia, Asthma, Atrial Fibrillation, Benign Prostatic Hyperplasia, Bronchitis, CAD, Cardia Arrhythmia, CHF, COPD, Diabetes (type II), Diverticulitis, Emphysema, HTN, Hypercholesterolemia, Peripheral Edema, Pneumonia Denies: Arthritis, HIV, Hypothyroidism, Chronic Kidney Disease, Rheumatoid Arthritis Other PMH: enlarged prostate - Surgical History Surgical History: CABG (1994), Coronary Stent (2000), Hernia Repair () - Family History Family History: States: No Known Family Hx - Living Arrangements Living Arrangements: Snf/Assist Lv - Social History Current smoker - smoking cessation education provided: No Alcohol: None Drugs: Denies - Immunization History Hx Tetanus Toxoid Vaccination: No Hx Influenza Vaccination: No Hx Pneumococcal Vaccination: No - Home Medications Home Medications: Ambulatory Orders Medication Instructions Recorded Fluticasone Propionate [Flonase] 2 spr JAKUB DAILY PRN #0 bottle 03/03/16 Tiotropium [Spiriva] 18 mcg IH DAILY #0 cap 03/03/16 Gabapentin [Neurontin] 100 mg PEG HS 07/04/16 Amiodarone [Cordarone] 200 mg PO DAILY tab 09/05/16 Aspirin [Aspirin Chewable] 81 mg PEG DAILY chew 09/05/16 Ipratropium 0.02% [Atrovent] 0.5 mg IH QID #90 neb 09/05/16 Levalbuterol HCl [Xopenex] 0.63 mg IH QID #90 vial.neb 09/05/16 Metoprolol Tartrate [Lopressor] 12.5 mg PO Q12 tab 09/05/16 traMADol [Ultram] 50 mg GT Q6 PRN #0 tab 09/05/16 Acetaminophen [Tylenol 325mg tab] 650 mg PO Q4H PRN 09/12/16 Montelukast [Singulair] 10 mg PEG HS 09/12/16 Acetaminophen [Tylenol 325mg tab] 650 mg PO Q4 PRN 11/14/16 Amino Acid/Protein/Vit C/Zinc 30 ml PEG TID 11/14/16 [Prosource Billy Protein Liquid] Aspirin [Aspirin Chewable] 81 mg PEG DAILY 11/14/16 Collagenase [Santyl] 1 appl TOP QSHIFT 11/14/16 Dimethicone [Proshield Plus Skin 1 appl TOP QSHIFT 11/14/16 Protectant] Ferrous Sulfate [Feosol Liq] 7.5 ml PEG DAILY 11/14/16 Fludrocortisone [Florinef] 1 tab PO DAILY 11/14/16 Fluticasone Nasal [Flonase] 2 spray JAKUB DAILY 11/14/16 Fluticasone/Salmeterol 250/50 1 puff INH Q12 11/14/16 [Advair Diskus 250/50] Gabapentin [Neurontin] 400 mg PEG BID 11/14/16 Gabapentin [Neurontin] 400 mg PEG HS 11/14/16 Guaifenesin [Mucinex] 600 mg PEG BID 11/14/16 Megestrol [Megace] 10 ml PEG DAILY 11/14/16 Metoclopramide [Reglan] 10 mg PEG HS 11/14/16 Ondansetron ODT [Zofran ODT] 4 mg PEG Q8 11/14/16 Pantoprazole [Protonix Susp] 40 mg PEG DAILY 11/14/16 Silver Sulfadiazine 1% [Silvadene 1 appl TOP QSHIFT 11/14/16 1%] Sucralfate [Carafate Oral Susp] 1 dose PEG TID 11/14/16 - Allergies Allergies/Adverse Reactions: Allergies Allergy/AdvReac Type Severity Reaction Status Date / Time gemfibrozil [From Lopid] Allergy RASH Verified 10/12/16 14:03 morphine Allergy SHORTNESS Verified 10/12/16 14:03 OF BREATH Review of Systems ROS Statement: Except As Marked, All Systems Reviewed And Found Negative Respiratory: Positive for: Shortness of Breath Physical Exam - Reviewed Nursing Documentation Reviewed: Yes Vital Signs Reviewed: Yes - Physical Exam Appears: Positive for: Well, No Acute Distress Head Exam: Positive for: ATRAUMATIC, NORMAL INSPECTION, NORMOCEPHALIC Skin: Positive for: Normal Color, Warm, Dry Eye Exam: Positive for: EOMI, Normal appearance, PERRL ENT: Positive for: Normal ENT Inspection Neck: Positive for: Normal, Painless ROM, Supple Cardiovascular/Chest: Positive for: Regular Rate, Rhythm. Negative for: Murmur , Tachycardia Respiratory: Positive for: Crackles (diffuse b/l ). Negative for: Wheezing, Respiratory Distress Gastrointestinal/Abdominal: Positive for: Soft, Other (PEG tube noted ). Negative for: Tenderness Back: Positive for: Normal Inspection. Negative for: L CVA Tenderness, R CVA Tenderness Extremity: Positive for: Normal ROM, Other (chronic ulcers to BLE ). Negative for: Pedal Edema, Deformity Neurologic/Psych: Positive for: Alert, Oriented (but cant walk w cpap ziyad on) - Laboratory Results Result Diagrams: 11/14/16 00:29 11/14/16 00:29 - ECG ECG: Positive for: Interpreted By Me, Viewed By Me ECG Rhythm: Positive for: Atrial Fibrillation (at 111 bpm, LVH ) O2 Sat by Pulse Oximetry: 100 Pulse Ox Interpretation: Normal - Critical Care Total Time (In Min): 30 Medical Decision Making Medical Decision Makin: Impression: SOB, r/o CHF vs. COPD Plan: EKG Labs CXR albuterol 2.5mg INH, Lasix 40mg IVP, solu-medrol 125mg IVP BIPAP reassess pro bnp elevated. pt with chf and also with copd. will treat for both. steroids and nebs ordered. 0110: Case discussed with Dr. Smith pts doctor who requests patient be admitted to the ICU. Dr. Stephens will evaluate patient as holistic pulser tomorrow. 0225: Labs reviewed, pro-BNP and WBC count elevated. CXR shows CHF. Antibiotics ordered. Case discussed with Dr. Mansfield (hospitalist and digital marketing strategist) who will follow the patient. ABG ordered appears normal ph. DX chf, copd pt agreeable to plan for admission Scribe Attestation: Documented by Dino Rodriguez acting as a scribe for Lilia Duenas MD. Provider Scribe Attestation: All medical record entries made by the Scribe were at my direction and personally dictated by me. I have reviewed the chart and agree that the record accurately reflects my personal performance of the history, physical exam, medical decision making, and the department course for this patient. I have also personally directed, reviewed, and agree with the discharge instructions and disposition. Disposition - Clinical Impression Clinical Impression: Moderate COPD (chronic obstructive pulmonary disease), CHF (congestive heart failure) - Patient ED Disposition Is Patient to be Admitted: Yes Counseled Patient/Family Regarding: Studies Performed - Disposition Disposition Time: 01:00 Condition: FAIR
[2016-11-14 00:46] LABS: ALB/GLOB RATIO 0.8 (1.0-2.1); BLOOD UREA NITROGEN 37 mg/dl (9-20); CALCIUM 8.7 mg/dL (8.4-10.2); CARBON DIOXIDE 24 mmol/L (22-30); CHLORIDE 106 mmol/L (98-107); GFR AFRICAN-AMERICAN > 60; GLUCOSE,RANDOM 122 mg/dL (75-110); POTASSIUM 3.3 MMOL/L (3.6-5.0); SODIUM 141 mmol/l (132-148); TOTAL PROTEIN 6.2 G/DL (6.3-8.2)
[2016-11-14 00:47] LABS: ALKALINE PHOSPHATASE 123 U/L (38-126); ALT/SGPT 35 U/L (21-72); AST/SGOT 20 U/L (17-59); BILIRUBIN,TOTAL 0.3 mg/dl (0.2-1.3)
[2016-11-14] MEDS ORDERED: Albuterol 0.083% Inhal Sol (2.5 mg/3 mL) UD ONE (00:47)
[2016-11-14 01:00] LABS: RBC URINE 2 /hpf (0-3); URINE BILIRUBIN NEGATIVE (NEGATIVE); URINE BLOOD NEGATIVE (NEGATIVE); URINE COLOR STRAW (YELLOW); URINE GLUCOSE (UA) NEG (Normal); URINE KETONE NEGATIVE (NEGATIVE); URINE LEUKOCYTE ESTERASE NEG Leu/uL (Negative); URINE PROTEIN NEGATIVE (NEGATIVE); URINE UROBILINOGEN 0.2-1.0 mg/dL (0.2-1.0); WBC URINE 1 /hpf (0-5)
[2016-11-14] MEDS ORDERED: Potassium Chloride 20 mEq ER Tab PO ONE ×3 (02:24→03:41)
[2016-11-14] MEDS ORDERED: Azithromycin 500 MG in Sodium Chloride 0.9% 250 ML IVPB STA (02:25)
[2016-11-14 02:38] LABS: NEUTROPHIL 95 % (42-75); TOTAL CELLS COUNTED 100
[2016-11-14 02:42] LABS: LARGE PLATELETS PRESENT
[2016-11-14 02:50] LABS: ABG ALLEN TEST YES; ABG MECHANICAL RATE 12; ARTERIAL BLOOD GAS HCO3 25.5 mmol/L (21-28); ARTERIAL BLOOD GAS MODE BiPAP; ARTERIAL BLOOD GAS PH 7.41 (7.35-7.45); ARTERIAL BLOOD GAS PO2 128 mm/Hg (80-100)
--- NOTE | 2016-11-14 03:01 | CP.PCM.CON ---
History of Present Illness - History of Present Illness History of Present Illness: Attending: Dr Smith Reason For Consult: Critical Care Management Chief Complaint: SOB/Respiratory Distress HPI: The hx is obtained from the patient, his Daughter and the medical records. He is a 71 years old male from the [facility], with hx of Anemia, A Fib, Asthma with COPD, and CHF with Cardiomyopathy. He was last admitted on 10/02/16 and discharged on 11/03/16 with Dx of Pneumonia and respiratory failure. He is brought to the ED with worsening SOB. He was given Lasix, nitropatch and place on CIPAP ed rout to the ED. IN The ED he was transferred to a BIPAP. PMH: Anemia, Asthma, Atrial Fibrillation, Benign Prostatic Hyperplasia, Bronchitis, CAD, Cardia Arrhythmia, CHF, COPD, Diverticulitis, Emphysema, HTN, Hypercholesterolemia, Peripheral Edema, Pneumonia PSH: CABG 1994 and cardiac stent 2000; Ventral Hernia repair SH: Former Smoker; no illegal drug use;No Alcohol; Living in [facility] FH: No known Hereditary disease Allergies: Gemfibrazoil; and Morphine Review of Systems - Review of Systems Systems not reviewed;Unavailable: Respiratory Distress Review of Systems: Review of systems is limited because the patient is dyspneic. - Constitutional Constitutional: absent: Fever, Headache - EENT Eyes: absent: Requires Corrective Lenses Ears: absent: Decreased Hearing, Disequilibrium Nose/Mouth/Throat: absent: Epistaxis, Nasal Congestion, Nasal Discharge, Sinus Pain, Sinus Pressure, Dry Mouth - Cardiovascular Cardiovascular: Dyspnea. absent: Chest Pain, Leg Edema - Respiratory Respiratory: Cough, Dyspnea, Wheezing - Gastrointestinal Gastrointestinal: Abdominal Pain Additional comments: Zeinab gastrostomy tube at the abdomen - Hematologic/Lymphatic Hematologic: absent: Easy Bleeding, Easy Bruising Past Patient History - Infectious Disease Hx of Infectious Diseases: None - Tetanus Immunizations Tetanus Immunization: Unknown - Past Medical History & Family History Past Medical History?: Yes - Past Social History Smoking Status: Former Smoker Chewing Tobacco Use: No Cigar Use: No Alcohol: None Drugs: Denies Home Situation {Lives}: [facility] - CARDIAC Hx Atrial Fibrillation: Yes Hx Cardia Arrhythmia: Yes Hx Congestive Heart Failure: Yes Hx Hypercholesterolemia: Yes Hx Hypertension: Yes Hx Peripheral Edema: Yes - PULMONARY Hx Asthma: Yes Hx Bronchitis: Yes Hx Chronic Obstructive Pulmonary Disease (COPD): Yes Hx Emphysema: Yes Hx Pneumonia: Yes - NEUROLOGICAL Hx Neurological Disorder: No - HEENT Hx Cataracts: Yes (right eye) - RENAL Hx Chronic Kidney Disease: No - ENDOCRINE/METABOLIC Hx Hypothyroidism: No - HEMATOLOGICAL/ONCOLOGICAL Hx Anemia: Yes Hx Human Immunodeficiency Virus (HIV): No - INTEGUMENTARY Hx Psoriasis: Yes - MUSCULOSKELETAL/RHEUMATOLOGICAL Hx Arthritis: No Hx Rheumatoid Arthritis: No - GASTROINTESTINAL Hx Diverticulitis: Yes - GENITOURINARY/GYNECOLOGICAL Hx Prostate Problems: Yes - PSYCHIATRIC Hx Psychophysiologic Disorder: No Hx Substance Use: No - SURGICAL HISTORY Hx Coronary Artery Bypass Graft: Yes (1994) Hx Coronary Stent: Yes (2000) - ANESTHESIA Hx Anesthesia: Yes Hx Anesthesia Reactions: No Hx Malignant Hyperthermia: No Meds Allergies/Adverse Reactions: Allergies Allergy/AdvReac Type Severity Reaction Status Date / Time gemfibrozil [From Lopid] Allergy RASH Verified 10/12/16 14:03 morphine Allergy SHORTNESS Verified 10/12/16 14:03 OF BREATH - Medications Medications: Current Medications Azithromycin 500 mg/ Sodium (Chloride) 250 mls @ 250 mls/hr IVPB STAT STA Stop: 11/14/16 03:24 Ceftriaxone Sodium 1 gm/ (Sodium Chloride) 100 mls @ 100 mls/hr IVPB STAT STA Stop: 11/14/16 03:24 Physical Exam - Head Exam Head Exam: ATRAUMATIC, NORMAL INSPECTION, NORMOCEPHALIC Additional comments: With BIPAP on. - Eye Exam Eye Exam: absent: EOMI, Normal appearance Pupil Exam: absent: NORMAL ACCOMODATION, PERRL - ENT Exam ENT Exam: Mucous Membranes Dry, Normal External Ear Exam, Normal Oropharynx - Neck Exam Neck exam: Positive for: Full Rom, Normal Inspection. Negative for: Lymphadenopathy, Tenderness - Respiratory Exam Additional comments: Coarse crakles on inspiration and expiration both lung mendez. - Cardiovascular Exam Cardiovascular Exam: REGULAR RHYTHM, RRR, +S1, +S2. absent: Gallop, JVD - GI/Abdominal Exam Additional comments: Gastrostomy tube at center of abdomen. +ve bowel sounds, Mild tenderness at the zeinab gastrostomy tube with no rebound tenderness but guarding.- - Rectal Exam Rectal Exam: Deferred - Extremities Exam Additional comments: multiple abrasions on the dorsum og both feet; Left heel with black decolorated lesion 2x2cm. - Back Exam Additional comments: Sacral ulcer - Neurological Exam Neurological exam: CN II-XII Intact, Reflexes Normal - Psychiatric Exam Psychiatric exam: Flat Affect - Skin Skin Exam: Dry, Normal Color, Warm Results - Vital Signs Recent Vital Signs: Last Vital Signs Temp 97.8 F 11/14/16 00:27 Pulse 106 H 11/14/16 00:30 Resp 30 H 11/14/16 02:08 BP 135/75 11/14/16 00:27 Pulse Ox 100 11/14/16 02:28 - Labs Result Diagrams: 11/14/16 00:29 11/14/16 00:29 Labs: Laboratory Results - last 24 hr 11/14/16 02:38 pCO2 40 pO2 128 H HCO3 25.5 ABG pH 7.41 ABG Total CO2 26.6 ABG O2 Saturation 99.9 H ABG Base Excess 0.7 Emmanuel Test Yes ABG Potassium 2.9 L A-a O2 Difference 179.0 Sodium 139.0 Chloride 109.0 H Glucose 98 Lactate 0.5 L Vent Mode Bipap Mechanical Rate 12 FiO2 50.0 Inspiratory BiPAP 12 Expiratory BiPAP 5 Arterial Blood Potassium 2.9 L - EKG Data EKG comments: Regular narrow complex [id number] - Imaging and Cardiology Chest x-ray Additional comment: Interstitial infiltrate at both lung bases. ECHO 07/23/16 Status: Report reviewed by me Additional comment: EF 30-35% Multivessel wall motion abnormality Moderate Mitral Regurge LVH concentric Mitral anular calcification Assessment & Plan - Assessment and Plan (Free Text) Assessment: #. Acute on Chronic CHF #. COPD exacerbation #. Abdominal pain #. Azotemia #. Malnutrition #. hypokalemia #. leukocytosis Plan: 71 years old male from the [facility], with hx of Anemia, A Fib, Asthma with COPD, and CHF with Cardiomyopathy. He was last admitted on 10/02/16 and discharged on 11/03/16 with Dx of Pneumonia and respiratory failure. He is brought to the ED with worsening SOB. He was given Lasix, nitropatch and place on CIPAP ed rout to the ED. IN The ED he was transferred to a BIPAP. #. Acute on Chronic CHF Systolic Dysfunction with EF of 30-35% - Consult Cardiology Dr Last - Metoprolol - Lasix 20mg IV Daily #. COPD exacerbation r/o Pneumonia - Consult Dr Stephens - Bipap settings 12/5 rate of 12, 50% FiO2 - Follow ABG - Xopenex Q 4h - Spiriva daily - Solumedrol - Zosyn 3.375g IV Q6 /Azithromycin 500mg IV Daily #. Abdominal pain Probably in relation to the Gastrostomy tube - consult Dr Rowell GI #. Azotemia - Follow Renal labs #. moderate Malnutrition - Consult Dietitian #. Hypokalemia - Repleted #. Neutrophylic leukocytosis - Follow WBC #. DVT Prophylaxis with Lovenox #. Code Status: Full - Date & Time Date: 11/14/16 Time: 03:01
[2016-11-14] MEDS ORDERED: Silver Sulfadiazine 1% CREAM (50 gm) TOP SCH (03:30)
[2016-11-14] MEDS ORDERED: Santyl Collagenase OINTMENT TOP SCH (03:45)
[2016-11-14] MEDS ORDERED: Proshield Plus GEL TOP SCH (03:45)
[2016-11-14] MEDS ORDERED: cefTRIAXone (Rocephin) 1 gm Inj ONE (04:12)
[2016-11-14 06:11] LABS: ABG ALLEN TEST YES; ABG MECHANICAL RATE 12; ARTERIAL BLOOD GAS HCO3 26.4 mmol/L (21-28); ARTERIAL BLOOD GAS MODE BiPAP; ARTERIAL BLOOD GAS O2 CAPACITY 12.3 mL/dL (16-24); ARTERIAL BLOOD GAS O2 CONTENT 12.3 ML/dL (15-23); ARTERIAL BLOOD GAS PH 7.42 (7.35-7.45); ARTERIAL BLOOD GAS PO2 99 mm/Hg (80-100); ARTERIAL BLOOD HGB O2 SAT 96.7 % (95.0-98.0); CARBOXYHEMOGLOBIN 1.6 % (0.5-1.5); HHB 0.2 % (0.0-5.0); METHEMOGLOBIN 1.6 % (0.0-3.0)
--- NOTE | 2016-11-14 07:11 | CP.CCUPN ---
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 SPO2 100%. Afebrile, no fever spikes, no hypotension, no tachyarrhythmias, BP 150/70, HR 86 in sinus rhythm. Urine output overnight 500ml after IV Lasix. He does not require a Polanco. He is sleeping, but arousable to verbal commands, answers simple questions. Discussed recent events with [id number] Karen. He is coughing during PO meals, and PEG feeds reduced as he has been on simultaneous PO feeds. Florinef initiated in the NH due to orthostatic hypotension, and helped to improve patients overall functionality and ability to tolerate get OOB and ambulate. ROS: All pertinent Nursing notes and all other 10+ systems reviewed: otherwise as above. PMSFH: No other new pertinent information relative to current medical problems noted. No other distress noted: EXAM- HEENT: no icterus, pupils midline, equal and reactive, no nystagmus, NECK: no visible JVD, supple, carotids equal upstroke bilat/no bruits CHEST: decreased BS bases, no wheezes audible. HEART: regular, distant, S1S2, no murmur audible, no rubs. ABD: soft, flat, PEG intact, no increased distention, no focal tenderness, no HSM. BS hypoactive. EXT: trace LE edema, no peripheral/ digital cyanosis, no calf tenderness or palpable cords, distal pulses intact and symmetrical NEURO: +tone, no gross focal deficits SKIN: no rashes LABS: 7.42/41/99, Lactate = 0.5 WBC= 17.9 HGB= 8.8 PLTs = 298K Na= 141 K= 3.3 HCO3= 24 BUN/Cr= 37/1.3 BS= 122 Alk Phos =150 Trop #1 negative CXR: Left hemidiaphragm not visible, increased left basilar interstitial marking as compared to 10/23/16 film. No PTX. Assessment: 1. Acute Resp failure 2 Insuff, r/o LLL Pneumonia (?Aspiration event) 2. Azotemia / Dehydration, r/o CKD II-III 3. Chronic disease Anemia 4. Paroxysmal A fib / Cardiomyopathy 5. COPD PLAN: 1. Check for tolerance on nasal cannula oxygen with reprieve off BiPAP every 4 hours. 2. Empiric Abx coverage noted, he had E Coli and Kleb pneumoniae Pneumonia previously. 3. Additional Lasix prn. 4. Supplement K, check Mag / Phos. 5. Watch Hgb levels, no active blood loss anywhere. 6. Dysphagia / Swallow eval, resume PEG feeds.
[2016-11-14] MEDS ORDERED: Insulin Lispro (humaLOG) 100 Units/ml Inj SC SCH (07:30)
[2016-11-14] MEDS: Fluticasone-Salmeterol 250-50mcg Diskus INH SCH ×2 (08:20→21:31)
[2016-11-14] MEDS: Sucralfate 1 gm/10 ml Oral Susp UD PEG SCH ×3 (08:21→17:29)
[2016-11-14] MEDS: Ferrous Sulfate 300 mg/5 mL Liq UD PEG SCH (08:22)
[2016-11-14] MEDS: Enoxaparin 40 mg Syringe SC SCH (08:25)
[2016-11-14] MEDS: Megestrol Acetate 40 mg/ml Cup PEG SCH (08:25)
[2016-11-14] MEDS: guaiFENesin 600 mg ER Tab PO SCH ×2 (08:25→17:29)
[2016-11-14] MEDS: Pantoprazole 40 mg Susp UD PEG SCH (08:26)
[2016-11-14] MEDS: methylPREDNISolone 30 MG in Sodium Chloride 0.9% 50 ML IVPB SCH ×2 (08:27→17:50)
[2016-11-14] MEDS: Tiotropium 18 mcg Cap For Inhalation IH SCH (08:28)
[2016-11-14] MEDS: Levalbuterol 0.63 MG/3 ML Inhal Soln UD IH SCH ×5 (08:40→23:55)
--- NOTE | 2016-11-14 08:56 | CP.PCM.CON ---
History of Present Illness - History of Present Illness History of Present Illness: This 71-year-old white male who is well known to myself from prior admissions as well as the outpatient setting was doing well in subacute rehabilitation and he began to experience shortness of breath and cough. He has been hospitalized a number of times over the past for 5 months because of pneumonia with respiratory failure requiring endotracheal intubation and mechanical ventilation. He did have cardiac arrhythmia for which he was resuscitated during one of those admissions. He has had recurrence of the left basal infiltrate which was responsible for his most recent admission to this institution. He denies any chest pain or hemoptysis. He does have a congested cough but has difficulty in expectorating the sputum. He was unaware of fever and denied chills. He does suffer from severe cardiomyopathy and has had prior DE with bypass grafting done in the past. At the time of this visit he was sitting up in bed and eating breakfast. He claims to feel significantly improved from the night before when he presented to the emergency department. Past Patient History - Infectious Disease Hx of Infectious Diseases: None - Tetanus Immunizations Tetanus Immunization: Unknown - Past Medical History & Family History Past Medical History?: Yes Pertinent Family History: Lung cancer, CAD. - Past Social History Smoking Status: Former Smoker Chewing Tobacco Use: No Cigar Use: No Alcohol: None Drugs: Denies Home Situation {Lives}: Other (Subacute rehabilitation) - CARDIAC Hx Atrial Fibrillation: Yes Hx Cardia Arrhythmia: Yes Hx Congestive Heart Failure: Yes Hx Heart Attack: Yes Hx Hypercholesterolemia: Yes Hx Hypertension: Yes Hx Peripheral Edema: Yes - PULMONARY Hx Asthma: Yes Hx Bronchitis: Yes Hx Chronic Obstructive Pulmonary Disease (COPD): Yes Hx Pneumonia: Yes Other/Comment: Pleural effusion. - NEUROLOGICAL Hx Neurological Disorder: No - HEENT Hx Cataracts: Yes (right eye) - RENAL Hx Chronic Kidney Disease: No - ENDOCRINE/METABOLIC Hx Diabetes Mellitus Type 2: Yes - HEMATOLOGICAL/ONCOLOGICAL Hx Anemia: Yes Hx Human Immunodeficiency Virus (HIV): No - INTEGUMENTARY Hx Psoriasis: Yes - MUSCULOSKELETAL/RHEUMATOLOGICAL Hx Arthritis: Yes Hx Back Pain: Yes Hx Falls: No - GASTROINTESTINAL Hx Diverticulitis: Yes Hx Ulcer: Yes Other/Comment: PEG tube - GENITOURINARY/GYNECOLOGICAL Hx Prostate Problems: Yes (BPH) - PSYCHIATRIC Hx Psychophysiologic Disorder: No Hx Substance Use: No - SURGICAL HISTORY Hx Coronary Artery Bypass Graft: Yes (1994) Hx Coronary Stent: Yes (2000) Other/Comment: Subtotal gastrectomy. Multiple ventral hernia repairs. - ANESTHESIA Hx Anesthesia: Yes Hx Anesthesia Reactions: No Hx Malignant Hyperthermia: No Meds Allergies/Adverse Reactions: Allergies Allergy/AdvReac Type Severity Reaction Status Date / Time gemfibrozil [From Lopid] Allergy RASH Verified 10/12/16 14:03 morphine Allergy SHORTNESS Verified 10/12/16 14:03 OF BREATH - Medications Medications: Current Medications Acetaminophen (Tylenol 325mg Tab) 650 mg PO Q4H PRN PRN Reason: Fever >100.4 F Amiodarone HCl (Cordarone) 200 mg PO DAILY [facility] Last Admin: 11/14/16 08:22 Dose: 200 mg Aspirin (Aspirin Chewable) 81 mg PEG DAILY [facility] Last Admin: 11/14/16 08:21 Dose: 81 mg Collagenase (Santyl) 1 applic TOP QSHIFT [facility] Last Admin: 11/14/16 08:26 Dose: 1 applic Dimethicone (Proshield Plus Skin Protectant) 1 applic TOP [facility] Last Admin: 11/14/16 08:26 Dose: 1 applic Enoxaparin Sodium (Lovenox) 40 mg SC DAILY [facility] PRN Reason: Protocol Last Admin: 11/14/16 08:25 Dose: 40 mg Ferrous Sulfate (Feosol Liq) 450 mg PEG DAILY [facility] Last Admin: 11/14/16 08:22 Dose: 450 mg Fludrocortisone Acetate (Florinef) 0.1 mg PO DAILY [facility] Last Admin: 11/14/16 08:23 Dose: 0.1 mg Furosemide (Lasix) 20 mg IVP DAILY [facility] Last Admin: 11/14/16 08:23 Dose: 20 mg Gabapentin (Neurontin) 400 mg PEG HS [facility] Gabapentin (Neurontin) 400 mg PEG BID [facility] Guaifenesin (Mucinex La) 600 mg PO BID [facility] Last Admin: 11/14/16 08:25 Dose: 600 mg Piperacillin Sod/Tazobactam (Sod 3.375 gm/ Sodium Chloride) 100 mls @ 100 mls/ hr IVPB Q6 [facility] Azithromycin 500 mg/ Sodium (Chloride) 250 mls @ 250 mls/hr IVPB DAILY [facility] Methylprednisolone 30 mg/ (Sodium Chloride) 50 mls @ 100 mls/hr IVPB Q8 [facility] Last Admin: 11/14/16 08:27 Dose: 100 mls/hr Insulin Human Lispro (Humalog) 0 units SC ACHS [facility] PRN Reason: Protocol Last Admin: 11/14/16 07:54 Dose: Not Given Levalbuterol HCl (Xopenex) 0.63 mg IH Q4H [facility] Last Admin: 11/14/16 08:40 Dose: 0.63 mg Megestrol Acetate (Megace) 400 mg PEG DAILY [facility] Last Admin: 11/14/16 08:25 Dose: 400 mg Metoclopramide HCl (Reglan) 10 mg PEG HS [facility] Metoprolol Tartrate (Lopressor) 12.5 mg PO Q12 [facility] Last Admin: 11/14/16 08:24 Dose: 12.5 mg Montelukast Sodium (Singulair) 10 mg PEG HS [facility] Ondansetron HCl (Zofran Odt) 4 mg PEG Q8 PRN PRN Reason: Nausea/Vomiting Pantoprazole Sodium (Protonix Susp) 40 mg PEG DAILY [facility] Last Admin: 11/14/16 08:26 Dose: 40 mg Fluticasone/Salmeterol (Advair Diskus 250/50) 1 puff INH Q12 [facility] Last Admin: 11/14/16 08:20 Dose: 1 puff Silver Sulfadiazine (Silvadene 1% 50 Gm) 1 applic TOP QSHIFT [facility] Sucralfate (Carafate Oral Susp) 1 gm PEG TID [facility] Last Admin: 11/14/16 08:21 Dose: 1 gm Tiotropium [place] (Spiriva) 18 mcg IH DAILY [facility] Last Admin: 11/14/16 08:28 Dose: 18 mcg Tramadol HCl (Ultram) 50 mg GT Q6 PRN PRN Reason: pain level 5-10 Last Admin: 11/14/16 05:18 Dose: 50 mg Physical Exam - Additional Findings Additional findings: Thin, chronically ill-appearing male who is awake alert and cooperative. Conjunctivae appear mildly injected. No exudate. Pharynx is pink and mucous membranes are moist. No exudate. As a passages are patent bilaterally. No bleeding. Neck is supple and trachea is midline. No neck vein distention or carotid bruit. No dullness on chest percussion. Mild Kyphosis of the dorsal spine. But sounds are diminished bilaterally. Scattered sonorous rhonchi heard in the lower lobes bilaterally. No audible wheezing is appreciated. No bronchial breath sounds or egophony. Few medium rales are heard in the left lower lobe posteriorly. Heart sounds are distant and the rhythm is regular. There is a PEG tube in place in the abdominal wall. Bowel sounds are present. No dependent edema of the lower extremities is noted. No cyanosis. No calf tenderness. Results - Vital Signs Recent Vital Signs: Last Vital Signs Temp 98 F 11/14/16 04:34 Pulse 85 11/14/16 08:24 Resp 15 11/14/16 06:00 BP 143/90 11/14/16 08:24 Pulse Ox 100 11/14/16 06:00 - Labs Result Diagrams: 11/14/16 08:00 11/14/16 08:00 Labs: Laboratory Results - last 24 hr 11/14/16 11/14/16 11/14/16 02:38 05:41 06:02 pCO2 40 41 pO2 128 H 99 HCO3 25.5 26.4 ABG pH 7.41 7.42 ABG Total CO2 26.6 27.9 ABG O2 Saturation 99.9 H 99.8 H ABG O2 Content 12.3 L ABG Base Excess 0.7 1.9 ABG Hemoglobin 8.9 L ABG Carboxyhemoglobin 1.6 H POC ABG HHb (Measured) 0.2 ABG Methemoglobin 1.6 ABG O2 Capacity 12.3 L Emmanuel Test Yes Yes ABG Potassium 2.9 L A-a O2 Difference 179.0 135.0 Hgb O2 Saturation 96.7 Sodium 139.0 Chloride 109.0 H Glucose 98 Lactate 0.5 L Vent Mode Bipap Bipap Mechanical Rate 12 12 FiO2 50.0 40.0 Inspiratory BiPAP 12 12 Expiratory BiPAP 5 5 POC Glucose (mg/dL) 140 H Arterial Blood Potassium 2.9 L Assessment & Plan (1) Pneumonia Assessment and Plan: Left basilar pneumonia maybe in part aspiration related. Agree with present regimen, although I would replace azithromycin with clindamycin considering HCAP and potential aspiration. Add Florastor and change levalbuterol to PRN. Agree with plan for swallow re-eval. Stable for transfer out of ICU. Status: Acute Priority: High (2) COPD exacerbation Assessment and Plan: This appears to be a fairly mild exacerbation at this time. He is significantly stronger now than he has been in the past. CPT with flutter valve and encouraged to cough. Continue Advair 250 and Spiriva. Levalbuterol changed to PRN. Status: Chronic Priority: Medium - Date & Time Date: 11/14/16 Time: 08:54
[2016-11-14] MEDS ORDERED: Enoxaparin 30 mg Syringe SC SCH (09:00)
[2016-11-14] MEDS ORDERED: cefTRIAXone 1 GM in Sodium Chloride 0.9% 100 ML IVPB SCH (09:00)
[2016-11-14] MEDS ORDERED: Sucralfate 1 gm/10 ml Oral Susp UD PEG SCH (09:00)
[2016-11-14 09:32] LABS: EOS % 0.1 % (0.0-4.0); HEMATOCRIT 28.4 % (35.0-51.0); LYMPH # 0.5 K/uL (1.0-4.3); LYMPH % 2.6 % (20.0-40.0); MEAN CORPUSCULAR HEMOGLOBIN 28.9 pg (27.0-31.0); MEAN CORPUSCULAR HGB CONC 32.3 g/dL (33.0-37.0); MEAN PLATELET VOLUME 8.6 fl (7.2-11.7); MONO # 0.2 K/uL (0.0-0.8); MONO % 0.8 % (0.0-10.0); NEUT # 18.4 K/uL (1.8-7.0); NEUT % 96.5 % (50.0-75.0); PLATELET COUNT 298 K/uL (130-400); RED CELL DISTRIBUTION WIDTH 16.2 % (11.5-14.5); WHITE BLOOD COUNT 19.1 K/uL (4.8-10.8)
[2016-11-14 09:35] LABS: MEAN CELL VOLUME 89.6 fl (80.0-94.0)
[2016-11-14 09:49] LABS: BLOOD UREA NITROGEN 37 mg/dl (9-20); CALCIUM 8.9 mg/dL (8.4-10.2); CARBON DIOXIDE 27 mmol/L (22-30); CHLORIDE 103 mmol/L (98-107); GFR AFRICAN-AMERICAN > 60; GLUCOSE,RANDOM 141 mg/dL (75-110); POTASSIUM 3.3 MMOL/L (3.6-5.0); SODIUM 142 mmol/l (132-148)
--- NOTE | 2016-11-14 10:07 | RAD ---
PROCEDURE: CHEST RADIOGRAPH, 1 VIEW HISTORY: Shortness of breath COMPARISON: 10/23/2016 FINDINGS: LUNGS: Lung markings are accentuated. There is mild interstitial pulmonary edema. PLEURA: No pneumothorax. Small left pleural effusion. CARDIOVASCULAR: The heart is enlarged. Status post median sternotomy. OSSEOUS STRUCTURES: No significant abnormalities. VISUALIZED UPPER ABDOMEN: Normal. OTHER FINDINGS: None. IMPRESSION: Findings are most compatible with developing congestive heart failure with a small left pleural effusion.
[2016-11-14 10:16] LABS: NEUTROPHIL 91 % (42-75); TOTAL CELLS COUNTED 100
[2016-11-14 10:17] LABS: LARGE PLATELETS PRESENT
--- NOTE | 2016-11-14 10:29 | CP.PCM.CON ---
History of Present Illness - History of Present Illness History of Present Illness: THE PATIENT IS A 71 YEAR OLD MALE WITH A LONG PAST MEDICAL HISTORY INCLUDING CAD WITH OLD AWMI AND CABGS, LVEF OF 30% WITH CHF BOTH SYSTOLIC AND DIASTOLIC, EPISODES OF ATRIAL FIBRILLATION AND VT IN THE PAST, COPD, PNEUMONIA AND RENAL INSUF. HE WAS RECENTLY AT [facility] FOR PNEUMONIA. HE WAS AT THE [place] YESTERDAY AND WAS SOB AND WHEEZING AND WAS SENT TO THE ER AND ADMITTED FOR CHF AND PNEUMONIA. HE WAS GIVEN IV LASIX, IV ANTIBIOTICS AND BRONCHODILATORS AND NOW STATES THAT HE FEELS MUCH BETTER. CARDIOLOGY IS NOW ASKED TO SEE HIM. HE DENIES CHEST PAIN EXCEPT FOR HIS CHRONIC ANTERIOR CW PAIN. Past Patient History - Infectious Disease Hx of Infectious Diseases: None - Tetanus Immunizations Tetanus Immunization: Unknown - Past Medical History & Family History Past Medical History?: Yes - Past Social History Smoking Status: Former Smoker - CARDIAC Hx Atrial Fibrillation: Yes Hx Cardia Arrhythmia: Yes Hx Congestive Heart Failure: Yes Hx Hypercholesterolemia: Yes Hx Hypertension: Yes Hx Peripheral Edema: Yes - PULMONARY Hx Asthma: Yes Hx Bronchitis: Yes Hx Chronic Obstructive Pulmonary Disease (COPD): Yes Hx Emphysema: Yes Hx Pneumonia: Yes - NEUROLOGICAL Hx Neurological Disorder: No - HEENT Hx Cataracts: Yes (right eye) - RENAL Hx Chronic Kidney Disease: No - ENDOCRINE/METABOLIC Hx Hypothyroidism: No - HEMATOLOGICAL/ONCOLOGICAL Hx Anemia: Yes Hx Human Immunodeficiency Virus (HIV): No - INTEGUMENTARY Hx Psoriasis: Yes - MUSCULOSKELETAL/RHEUMATOLOGICAL Hx Falls: No - GASTROINTESTINAL Hx Diverticulitis: Yes - GENITOURINARY/GYNECOLOGICAL Hx Prostate Problems: Yes (BPH) - PSYCHIATRIC Hx Substance Use: No - SURGICAL HISTORY Hx Coronary Artery Bypass Graft: Yes (1994) Hx Coronary Stent: Yes (2000) - ANESTHESIA Hx Anesthesia: Yes Hx Anesthesia Reactions: No Hx Malignant Hyperthermia: No Meds Allergies/Adverse Reactions: Allergies Allergy/AdvReac Type Severity Reaction Status Date / Time gemfibrozil [From Lopid] Allergy RASH Verified 10/12/16 14:03 morphine Allergy SHORTNESS Verified 10/12/16 14:03 OF BREATH - Medications Medications: Current Medications Acetaminophen (Tylenol 325mg Tab) 650 mg PO Q4H PRN PRN Reason: Fever >100.4 F Amiodarone HCl (Cordarone) 200 mg PO DAILY [facility] Last Admin: 11/14/16 08:22 Dose: 200 mg Aspirin (Aspirin Chewable) 81 mg PEG DAILY [facility] Last Admin: 11/14/16 08:21 Dose: 81 mg Collagenase (Santyl) 1 applic TOP QSHIFT [facility] Last Admin: 11/14/16 08:26 Dose: 1 applic Dimethicone ([facility]shield Plus [facility] Protectant) [facility] Last Admin: 11/14/16 08:26 Dose: 1 applic Enoxaparin Sodium (Lovenox) 40 mg SC DAILY [facility] PRN Reason: Protocol Last Admin: 11/14/16 08:25 Dose: 40 mg Ferrous Sulfate (Feosol Liq) 450 mg PEG DAILY [facility] Last Admin: 11/14/16 08:22 Dose: 450 mg Fludrocortisone Acetate (Florinef) 0.1 mg PO DAILY [facility] Last Admin: 11/14/16 08:23 Dose: 0.1 mg Furosemide (Lasix) 20 mg IVP DAILY [facility] Last Admin: 11/14/16 08:23 Dose: 20 mg Gabapentin (Neurontin) 400 mg PEG HS [facility] Gabapentin (Neurontin) 400 mg PEG BID [facility] Guaifenesin (Mucinex La) 600 mg PO BID [facility] Last Admin: 11/14/16 08:25 Dose: 600 mg Piperacillin Sod/Tazobactam (Sod 3.375 gm/ Sodium Chloride) 100 mls @ 100 mls/ hr IVPB Q6 [facility] Azithromycin 500 mg/ Sodium (Chloride) 250 mls @ 250 mls/hr IVPB DAILY [facility] Methylprednisolone 30 mg/ (Sodium Chloride) 50 mls @ 100 mls/hr IVPB Q8 [facility] Last Admin: 11/14/16 08:27 Dose: 100 mls/hr Insulin Human Lispro (Humalog) 0 units SC ACHS [facility] PRN Reason: Protocol Last Admin: 11/14/16 07:54 Dose: Not Given Levalbuterol HCl (Xopenex) 0.63 mg IH Q4H [facility] Last Admin: 11/14/16 08:40 Dose: 0.63 mg Megestrol Acetate (Megace) 400 mg PEG DAILY [facility] Last Admin: 11/14/16 08:25 Dose: 400 mg Metoclopramide HCl (Reglan) 10 mg PEG HS [facility] Metoprolol Tartrate (Lopressor) 12.5 mg PO Q12 [facility] Last Admin: 11/14/16 08:24 Dose: 12.5 mg Montelukast Sodium (Singulair) 10 mg PEG HS [facility] Ondansetron HCl (Zofran Odt) 4 mg PEG Q8 PRN PRN Reason: Nausea/Vomiting Pantoprazole Sodium (Protonix Susp) 40 mg PEG DAILY [facility] Last Admin: 11/14/16 08:26 Dose: 40 mg Fluticasone/Salmeterol (Advair Diskus 250/50) 1 puff INH Q12 [facility] Last Admin: 11/14/16 08:20 Dose: 1 puff Silver Sulfadiazine (Silvadene 1% 50 Gm) 1 applic TOP QSHIFT [facility] Sucralfate (Carafate Oral Susp) 1 gm PEG TID [facility] Last Admin: 11/14/16 08:21 Dose: 1 gm Tiotropium [place] (Spiriva) 18 mcg IH DAILY [facility] Last Admin: 11/14/16 08:28 Dose: 18 mcg Tramadol HCl (Ultram) 50 mg GT Q6 PRN PRN Reason: pain level 5-10 Last Admin: 11/14/16 05:18 Dose: 50 mg Physical Exam - Respiratory Exam Respiratory Exam: Rales - Cardiovascular Exam Cardiovascular Exam: REGULAR RHYTHM, +S1, +S2 - Extremities Exam Additional comments: NO SIGNIFICANT LE EDEMA - Additional Findings Additional findings: RU[employer]LING [employer] SINUS RHYTHM TROPONIN NEGATIVE TROPONIN ELEVATED(CHRONICALLY) CXR WITH MILD VENOUS CONGESTION Results - Vital Signs Recent Vital Signs: Last Vital Signs Temp 97 F L 11/14/16 08:00 Pulse 85 11/14/16 08:24 Resp 14 11/14/16 08:00 BP 143/90 11/14/16 08:24 Pulse Ox 100 11/14/16 08:00 - Labs Result Diagrams: 11/14/16 08:00 11/14/16 08:00 Labs: Laboratory Results - last 24 hr 11/14/16 11/14/16 11/14/16 02:38 05:41 06:02 WBC RBC Hgb Hct MCV MCH MCHC RDW Plt Count MPV Neut % (Auto) Lymph % (Auto) [place] % (Auto) Eos % (Auto) Baso % (Auto) Neut # Lymph # [place] # Eos # Baso # Neutrophils % (Manual) Band Neutrophils % Lymphocytes % (Manual) Monocytes % (Manual) Platelet Estimate Large Platelets Anisocytosis (manual) pCO2 40 41 pO2 128 H 99 HCO3 25.5 26.4 ABG pH 7.41 7.42 ABG Total CO2 26.6 27.9 ABG O2 Saturation 99.9 H 99.8 H ABG O2 Content 12.3 L ABG Base Excess 0.7 1.9 ABG Hemoglobin 8.9 L ABG Carboxyhemoglobin 1.6 H POC ABG HHb (Measured) 0.2 ABG Methemoglobin 1.6 ABG O2 Capacity 12.3 L Emmanuel Test Yes Yes ABG Potassium 2.9 L A-a O2 Difference 179.0 135.0 Hgb O2 Saturation 96.7 Sodium 139.0 Chloride 109.0 H Glucose 98 Lactate 0.5 L Vent Mode Bipap Bipap Mechanical Rate 12 12 FiO2 50.0 40.0 Inspiratory BiPAP 12 12 Expiratory BiPAP 5 5 Potassium Carbon Dioxide Anion Gap BUN Creatinine Est GFR ( Amer) Est GFR (Non-Af Amer) POC Glucose (mg/dL) 140 H Random Glucose Calcium Arterial Blood Potassium 2.9 L 11/14/16 11/14/16 08:00 08:00 WBC 19.1 H RBC 3.18 L Hgb 9.2 L Hct 28.4 L MCV 89.6 D MCH 28.9 MCHC 32.3 L RDW 16.2 H Plt Count 298 MPV 8.6 Neut % (Auto) 96.5 H Lymph % (Auto) 2.6 L [place] % (Auto) 0.8 Eos % (Auto) 0.1 Baso % (Auto) 0.0 Neut # 18.4 H Lymph # 0.5 L [place] # 0.2 Eos # 0.0 Baso # 0.0 Neutrophils % (Manual) 91 H Band Neutrophils % 6 H Lymphocytes % (Manual) 2 L Monocytes % (Manual) 1 Platelet Estimate Normal Large Platelets Present Anisocytosis (manual) Slight pCO2 pO2 HCO3 ABG pH ABG Total CO2 ABG O2 Saturation ABG O2 Content ABG Base Excess ABG Hemoglobin ABG Carboxyhemoglobin POC ABG HHb (Measured) ABG Methemoglobin ABG O2 Capacity Emmanuel Test ABG Potassium A-a O2 Difference Hgb O2 Saturation Sodium 142 Chloride 103 Glucose Lactate Vent Mode Mechanical Rate FiO2 Inspiratory BiPAP Expiratory BiPAP Potassium 3.3 L Carbon Dioxide 27 Anion Gap 15 BUN 37 H Creatinine 1.3 Est GFR ( Amer) > 60 Est GFR (Non-Af Amer) 54 POC Glucose (mg/dL) Random Glucose 141 H Calcium 8.9 Arterial Blood Potassium Assessment & Plan - Assessment and Plan (Free Text) Assessment: CHRONIC SYSTOLIC AND DIASTOLIC CHF(MILD AT PRESENT) CAD WITDH OLD AWMI AND CABGS PNEUMONIA COPD Plan: CONTINUE O2, FUROSEMIDE, AMIODARONE, ASPIRIN, FUROSEMIDE, LOVENOX, KCL AND IV ANTIBIOTICS. NOTE: STATINS NOT GIVEN HE GETS MUSCLE ACHES FROM THEM
[2016-11-14] MEDS: Piperacillin/Tazobact 3.375 GM in Sodium Chloride 0.9% 100 ML IVPB SCH ×2 (10:35→20:04)
--- NOTE | 2016-11-14 14:27 | CP.PCM.CON ---
History of Present Illness - History of Present Illness History of Present Illness: 71 yo maleknown to me during previous hospitalizations admitted with increasing SOB. Has h/o COPD and CHF. PEG was placed on August 15 and in the past patient has complained of pain around the gastrostomy . Feedings through the gastrostomy have been going well though patient has also been ingesting small amounts of food by mouth. Now having some abdominal pain. Pain not severe and there is no nausea and vomiting. Review of Systems - Constitutional Constitutional: absent: Chills - EENT Eyes: absent: Blurred Vision Ears: absent: Decreased Hearing Nose/Mouth/Throat: absent: Epistaxis - Cardiovascular Cardiovascular: absent: Chest Pain - Respiratory Respiratory: Dyspnea - Gastrointestinal Gastrointestinal: Abdominal Pain Past Patient History - Infectious Disease Hx of Infectious Diseases: None - Tetanus Immunizations Tetanus Immunization: Unknown - Past Medical History & Family History Past Medical History?: Yes - Past Social History Smoking Status: Former Smoker - CARDIAC Hx Atrial Fibrillation: Yes Hx Cardia Arrhythmia: Yes Hx Congestive Heart Failure: Yes Hx Hypercholesterolemia: Yes Hx Hypertension: Yes Hx Peripheral Edema: Yes - PULMONARY Hx Asthma: Yes Hx Bronchitis: Yes Hx Chronic Obstructive Pulmonary Disease (COPD): Yes Hx Emphysema: Yes Hx Pneumonia: Yes - NEUROLOGICAL Hx Neurological Disorder: No - HEENT Hx Cataracts: Yes (right eye) - RENAL Hx Chronic Kidney Disease: No - ENDOCRINE/METABOLIC Hx Hypothyroidism: No - HEMATOLOGICAL/ONCOLOGICAL Hx Anemia: Yes Hx Human Immunodeficiency Virus (HIV): No - INTEGUMENTARY Hx Psoriasis: Yes - MUSCULOSKELETAL/RHEUMATOLOGICAL Hx Falls: No - GASTROINTESTINAL Hx Diverticulitis: Yes - GENITOURINARY/GYNECOLOGICAL Hx Prostate Problems: Yes (BPH) - PSYCHIATRIC Hx Substance Use: No - SURGICAL HISTORY Hx Coronary Artery Bypass Graft: Yes (1994) Hx Coronary Stent: Yes (2000) - ANESTHESIA Hx Anesthesia: Yes Hx Anesthesia Reactions: No Hx Malignant Hyperthermia: No Meds Allergies/Adverse Reactions: Allergies Allergy/AdvReac Type Severity Reaction Status Date / Time gemfibrozil [From Lopid] Allergy RASH Verified 10/12/16 14:03 morphine Allergy SHORTNESS Verified 10/12/16 14:03 OF BREATH - Medications Medications: Current Medications Acetaminophen (Tylenol 325mg Tab) 650 mg PO Q4H PRN PRN Reason: Fever >100.4 F Amiodarone HCl (Cordarone) 200 mg PO DAILY [facility] Last Admin: 11/14/16 08:22 Dose: 200 mg Aspirin (Aspirin Chewable) 81 mg PEG DAILY [facility] Last Admin: 11/14/16 08:21 Dose: 81 mg Collagenase (Santyl) 1 applic TOP QSHIFT [facility] Last Admin: 11/14/16 08:26 Dose: 1 applic Dimethicone (Proshield Plus Skin Protectant) 1 applic TOP QSHIFT [facility] Last Admin: 11/14/16 08:26 Dose: 1 applic Enoxaparin Sodium (Lovenox) 40 mg SC DAILY [facility] PRN Reason: Protocol Last Admin: 11/14/16 08:25 Dose: 40 mg Ferrous Sulfate (Feosol Liq) 450 mg PEG DAILY [facility] Last Admin: 11/14/16 08:22 Dose: 450 mg Fludrocortisone Acetate (Florinef) 0.1 mg PO DAILY [facility] Last Admin: 11/14/16 08:23 Dose: 0.1 mg Furosemide (Lasix) 20 mg IVP DAILY [facility] Last Admin: 11/14/16 08:23 Dose: 20 mg Gabapentin (Neurontin) 400 mg PEG HS [facility] Gabapentin (Neurontin) 400 mg PEG BID [facility] Last Admin: 11/14/16 10:36 Dose: 400 mg Guaifenesin (Mucinex La) 600 mg PO BID [facility] Last Admin: 11/14/16 08:25 Dose: 600 mg Piperacillin Sod/Tazobactam (Sod 3.375 gm/ Sodium Chloride) 100 mls @ 100 mls/ hr IVPB Q6 [facility] Last Admin: 11/14/16 10:35 Dose: 100 mls/hr Azithromycin 500 mg/ Sodium (Chloride) 250 mls @ 250 mls/hr IVPB DAILY [facility] Methylprednisolone 30 mg/ (Sodium Chloride) 50 mls @ 100 mls/hr IVPB Q8 [facility] Last Admin: 11/14/16 08:27 Dose: 100 mls/hr Levalbuterol HCl (Xopenex) 0.63 mg IH Q4H [facility] Last Admin: 11/14/16 13:31 Dose: 0.63 mg Megestrol Acetate (Megace) 400 mg PEG DAILY [facility] Last Admin: 11/14/16 08:25 Dose: 400 mg Metoclopramide HCl (Reglan) 10 mg PEG HS [facility] Metoprolol Tartrate (Lopressor) 12.5 mg PO Q12 [facility] Last Admin: 11/14/16 08:24 Dose: 12.5 mg Montelukast Sodium (Singulair) 10 mg PEG HS [facility] Ondansetron HCl (Zofran Odt) 4 mg PEG Q8 PRN PRN Reason: Nausea/Vomiting Pantoprazole Sodium (Protonix Susp) 40 mg PEG DAILY [facility] Last Admin: 11/14/16 08:26 Dose: 40 mg Fluticasone/Salmeterol (Advair Diskus 250/50) 1 puff INH Q12 [facility] Last Admin: 11/14/16 08:20 Dose: 1 puff Silver Sulfadiazine (Silvadene 1% 50 Gm) 1 applic TOP QSHIFT [facility] Sucralfate (Carafate Oral Susp) 1 gm PEG TID [facility] Last Admin: 11/14/16 12:33 Dose: 1 gm Tiotropium [place] (Spiriva) 18 mcg IH DAILY [facility] Last Admin: 11/14/16 08:28 Dose: 18 mcg Tramadol HCl (Ultram) 50 mg GT Q6 PRN PRN Reason: pain level 5-10 Last Admin: 11/14/16 05:18 Dose: 50 mg Physical Exam - Head Exam Head Exam: ATRAUMATIC - Eye Exam Eye Exam: EOMI - Neck Exam Neck exam: Positive for: Full Rom - Respiratory Exam Respiratory Exam: Clear to Auscultation Bilateral, Rales - Cardiovascular Exam Cardiovascular Exam: +S1, +S2 - GI/Abdominal Exam GI & Abdominal Exam: Normal Bowel Sounds, Soft, Tenderness Additional comments: mild LLQ tenderness Results - Vital Signs Recent Vital Signs: Last Vital Signs Temp 97 F L 11/14/16 08:00 Pulse 83 11/14/16 12:00 Resp 26 H 11/14/16 12:00 BP 141/81 11/14/16 13:53 Pulse Ox 96 11/14/16 13:53 - Labs Result Diagrams: 11/14/16 08:00 11/14/16 08:00 Labs: Laboratory Results - last 24 hr 11/14/16 11/14/16 11/14/16 02:38 05:41 06:02 WBC RBC Hgb Hct MCV MCH MCHC RDW Plt Count MPV Neut % (Auto) Lymph % (Auto) [place] % (Auto) Eos % (Auto) Baso % (Auto) Neut # Lymph # [place] # Eos # Baso # Neutrophils % (Manual) Band Neutrophils % Lymphocytes % (Manual) Monocytes % (Manual) Platelet Estimate Large Platelets Anisocytosis (manual) pCO2 40 41 pO2 128 H 99 HCO3 25.5 26.4 ABG pH 7.41 7.42 ABG Total CO2 26.6 27.9 ABG O2 Saturation 99.9 H 99.8 H ABG O2 Content 12.3 L ABG Base Excess 0.7 1.9 ABG Hemoglobin 8.9 L ABG Carboxyhemoglobin 1.6 H POC ABG HHb (Measured) 0.2 ABG Methemoglobin 1.6 ABG O2 Capacity 12.3 L Emmanuel Test Yes Yes ABG Potassium 2.9 L A-a O2 Difference 179.0 135.0 Hgb O2 Saturation 96.7 Sodium 139.0 Chloride 109.0 H Glucose 98 Lactate 0.5 L Vent Mode Bipap Bipap Mechanical Rate 12 12 FiO2 50.0 40.0 Inspiratory BiPAP 12 12 Expiratory BiPAP 5 5 Potassium Carbon Dioxide Anion Gap BUN Creatinine Est GFR ( Amer) Est GFR (Non-Af Amer) POC Glucose (mg/dL) 140 H Random Glucose Calcium Arterial Blood Potassium 2.9 L 11/14/16 11/14/16 08:00 08:00 WBC 19.1 H RBC 3.18 L Hgb 9.2 L Hct 28.4 L MCV 89.6 D MCH 28.9 MCHC 32.3 L RDW 16.2 H Plt Count 298 MPV 8.6 Neut % (Auto) 96.5 H Lymph % (Auto) 2.6 L [place] % (Auto) 0.8 Eos % (Auto) 0.1 Baso % (Auto) 0.0 Neut # 18.4 H Lymph # 0.5 L [place] # 0.2 Eos # 0.0 Baso # 0.0 Neutrophils % (Manual) 91 H Band Neutrophils % 6 H Lymphocytes % (Manual) 2 L Monocytes % (Manual) 1 Platelet Estimate Normal Large Platelets Present Anisocytosis (manual) Slight pCO2 pO2 HCO3 ABG pH ABG Total CO2 ABG O2 Saturation ABG O2 Content ABG Base Excess ABG Hemoglobin ABG Carboxyhemoglobin POC ABG HHb (Measured) ABG Methemoglobin ABG O2 Capacity Emmanuel Test ABG Potassium A-a O2 Difference Hgb O2 Saturation Sodium 142 Chloride 103 Glucose Lactate Vent Mode Mechanical Rate FiO2 Inspiratory BiPAP Expiratory BiPAP Potassium 3.3 L Carbon Dioxide 27 Anion Gap 15 BUN 37 H Creatinine 1.3 Est GFR ( Amer) > 60 Est GFR (Non-Af Amer) 54 POC Glucose (mg/dL) Random Glucose 141 H Calcium 8.9 Arterial Blood Potassium Assessment & Plan (1) Abdominal wall pain Assessment and Plan: Overall patient looks better nutritionally and feels stronger since PEG insertion in July. He is receiving a swallowing study to evaluate for possible aspiration. Abdominal pain at this time is not at PEG site ( is tolerable by patient) and possibly due to fibrosis from previous abdominal surgery. No evidence of any problems with PEG at this time and site appears clean. Status: Acute
--- NOTE | 2016-11-14 19:32 | CP.PCM.HP ---
History of Present Illness - History of Present Illness History of Present Illness: 71 yo with hx of COPD Aspiration pnuemonia PEG admitted for acute respiratory distress. PT much improved after coughing up "significant amount of milky substance" Present on Admission - Present on Admission Any Indicators Present on Admission: No Past Patient History - Infectious Disease Hx of Infectious Diseases: None - Tetanus Immunizations Tetanus Immunization: Unknown - Past Medical History & Family History Past Medical History?: Yes - Past Social History Smoking Status: Former Smoker Chewing Tobacco Use: No Cigar Use: No Alcohol: None Drugs: Denies Home Situation {Lives}: Other (Subacute rehabilitation) - CARDIAC Hx Congestive Heart Failure: Yes Hx Hypercholesterolemia: Yes Hx Hypertension: Yes - PULMONARY Hx Chronic Obstructive Pulmonary Disease (COPD): Yes - NEUROLOGICAL Hx Neurological Disorder: No - HEENT Hx Cataracts: Yes (right eye) - RENAL Hx Chronic Kidney Disease: No - ENDOCRINE/METABOLIC Hx Diabetes Mellitus Type 2: Yes - HEMATOLOGICAL/ONCOLOGICAL Hx Anemia: Yes Hx Human Immunodeficiency Virus (HIV): No - INTEGUMENTARY Hx Psoriasis: Yes - MUSCULOSKELETAL/RHEUMATOLOGICAL Hx Arthritis: Yes - GASTROINTESTINAL Hx Diverticulitis: Yes Hx Ulcer: Yes Other/Comment: PEG tube - GENITOURINARY/GYNECOLOGICAL Hx Prostate Problems: Yes (BPH) - PSYCHIATRIC Hx Psychophysiologic Disorder: No Hx Substance Use: No - SURGICAL HISTORY Hx Coronary Artery Bypass Graft: Yes (1994) Hx Coronary Stent: Yes (2000) Other/Comment: Subtotal gastrectomy. Multiple ventral hernia repairs. - ANESTHESIA Hx Anesthesia: Yes Hx Anesthesia Reactions: No Hx Malignant Hyperthermia: No Meds Allergies/Adverse Reactions: Allergies Allergy/AdvReac Type Severity Reaction Status Date / Time gemfibrozil [From Lopid] Allergy RASH Verified 10/12/16 14:03 morphine Allergy SHORTNESS Verified 10/12/16 14:03 OF BREATH Physical Exam - Respiratory Exam Respiratory Exam: NORMAL BREATHING PATTERN - Cardiovascular Exam Cardiovascular Exam: REGULAR RHYTHM - GI/Abdominal Exam GI & Abdominal Exam: Normal Bowel Sounds Results - Vital Signs Recent Vital Signs: Last Vital Signs Temp 97.7 F 11/14/16 17:00 Pulse 83 11/14/16 17:00 Resp 18 11/14/16 17:00 BP 149/72 11/14/16 17:00 Pulse Ox 97 11/14/16 17:00 - Labs Result Diagrams: 11/14/16 08:00 11/14/16 08:00 Labs: Laboratory Results - last 24 hr 11/14/16 11/14/16 11/14/16 02:38 05:41 06:02 WBC RBC Hgb Hct MCV MCH MCHC RDW Plt Count MPV Neut % (Auto) Lymph % (Auto) [place] % (Auto) Eos % (Auto) Baso % (Auto) Neut # Lymph # [place] # Eos # Baso # Neutrophils % (Manual) Band Neutrophils % Lymphocytes % (Manual) Monocytes % (Manual) Platelet Estimate Large Platelets Anisocytosis (manual) pCO2 40 41 pO2 128 H 99 HCO3 25.5 26.4 ABG pH 7.41 7.42 ABG Total CO2 26.6 27.9 ABG O2 Saturation 99.9 H 99.8 H ABG O2 Content 12.3 L ABG Base Excess 0.7 1.9 ABG Hemoglobin 8.9 L ABG Carboxyhemoglobin 1.6 H POC ABG HHb (Measured) 0.2 ABG Methemoglobin 1.6 ABG O2 Capacity 12.3 L Emmanuel Test Yes Yes ABG Potassium 2.9 L A-a O2 Difference 179.0 135.0 Hgb O2 Saturation 96.7 Sodium 139.0 Chloride 109.0 H Glucose 98 Lactate 0.5 L Vent Mode Bipap Bipap Mechanical Rate 12 12 FiO2 50.0 40.0 Inspiratory BiPAP 12 12 Expiratory BiPAP 5 5 Potassium Carbon Dioxide Anion Gap BUN Creatinine Est GFR ( Amer) Est GFR (Non-Af Amer) POC Glucose (mg/dL) 140 H Random Glucose Calcium Arterial Blood Potassium 2.9 L 11/14/16 11/14/16 08:00 08:00 WBC 19.1 H RBC 3.18 L Hgb 9.2 L Hct 28.4 L MCV 89.6 D MCH 28.9 MCHC 32.3 L RDW 16.2 H Plt Count 298 MPV 8.6 Neut % (Auto) 96.5 H Lymph % (Auto) 2.6 L [place] % (Auto) 0.8 Eos % (Auto) 0.1 Baso % (Auto) 0.0 Neut # 18.4 H Lymph # 0.5 L [place] # 0.2 Eos # 0.0 Baso # 0.0 Neutrophils % (Manual) 91 H Band Neutrophils % 6 H Lymphocytes % (Manual) 2 L Monocytes % (Manual) 1 Platelet Estimate Normal Large Platelets Present Anisocytosis (manual) Slight pCO2 pO2 HCO3 ABG pH ABG Total CO2 ABG O2 Saturation ABG O2 Content ABG Base Excess ABG Hemoglobin ABG Carboxyhemoglobin POC ABG HHb (Measured) ABG Methemoglobin ABG O2 Capacity Emmanuel Test ABG Potassium A-a O2 Difference Hgb O2 Saturation Sodium 142 Chloride 103 Glucose Lactate Vent Mode Mechanical Rate FiO2 Inspiratory BiPAP Expiratory BiPAP Potassium 3.3 L Carbon Dioxide 27 Anion Gap 15 BUN 37 H Creatinine 1.3 Est GFR ( Amer) > 60 Est GFR (Non-Af Amer) 54 POC Glucose (mg/dL) Random Glucose 141 H Calcium 8.9 Arterial Blood Potassium Assessment & Plan - Assessment and Plan (Free Text) Assessment: Acute Respiratory Distress Failure Aspiration?? HX COPD S/P Klebsiella RLL Pneumonia? S/P L pneumothorax ABX IVF Steroids ICU Pulmonary Hx Dec oral intake swallowing?? PEG Jevity and oral feedings s/p + C-diff + Ag -toxin GI consult Hx of Orthostatic Hypotension S/P V-fib/ V-tach 2 to pulmonary dx A-fib CAD S/P CABG Amiodorone Cardiology HX Hyperkalemia etiol ?? s/p SMITA/ CKD Nephrology Cortisol level ?? Chronic chest wall pain - Date & Time Date: 11/14/16 Time: 22:22
[2016-11-15] MEDS: Piperacillin/Tazobact 3.375 GM in Sodium Chloride 0.9% 100 ML IVPB SCH ×5 (00:21→21:14)
[2016-11-15] MEDS: methylPREDNISolone 30 MG in Sodium Chloride 0.9% 50 ML IVPB SCH ×3 (01:41→16:31)
[2016-11-15] MEDS: Levalbuterol 0.63 MG/3 ML Inhal Soln UD IH SCH ×3 (05:02→12:05)
[2016-11-15 07:56] LABS: BASO % 0.2 % (0.0-2.0); HEMATOCRIT 25.9 % (35.0-51.0); LYMPH # 0.5 K/uL (1.0-4.3); LYMPH % 5.2 % (20.0-40.0); MEAN CELL VOLUME 92.9 fl (80.0-94.0); MEAN CORPUSCULAR HEMOGLOBIN 29.2 pg (27.0-31.0); MEAN CORPUSCULAR HGB CONC 31.5 g/dL (33.0-37.0); MEAN PLATELET VOLUME 9.3 fl (7.2-11.7); MONO # 0.3 K/uL (0.0-0.8); MONO % 2.9 % (0.0-10.0); NEUT # 8.1 K/uL (1.8-7.0); NEUT % 91.7 % (50.0-75.0); PLATELET COUNT 172 K/uL (130-400); RED CELL DISTRIBUTION WIDTH 16.3 % (11.5-14.5); WHITE BLOOD COUNT 8.8 K/uL (4.8-10.8)
[2016-11-15 08:07] LABS: ALB/GLOB RATIO 0.8 (1.0-2.1); ALKALINE PHOSPHATASE 95 U/L (38-126); ALT/SGPT 24 U/L (21-72); AST/SGOT 23 U/L (17-59); BILIRUBIN,TOTAL 0.4 mg/dl (0.2-1.3); BLOOD UREA NITROGEN 44 mg/dl (9-20); CALCIUM 8.8 mg/dL (8.4-10.2); CARBON DIOXIDE 22 mmol/L (22-30); CHLORIDE 106 mmol/L (98-107); GFR AFRICAN-AMERICAN > 60; GLUCOSE,RANDOM 152 mg/dL (75-110); POTASSIUM 3.7 MMOL/L (3.6-5.0); SODIUM 140 mmol/l (132-148)
[2016-11-15 08:44] LABS: THYROID STIMULATING HORMONE 0.41 mIU/ML (0.46-4.68)
[2016-11-15] MEDS: Pantoprazole 40 mg Susp UD PEG SCH (08:44)
[2016-11-15] MEDS: Fluticasone-Salmeterol 250-50mcg Diskus INH SCH ×2 (08:45→20:21)
[2016-11-15] MEDS: guaiFENesin 600 mg ER Tab PO SCH ×2 (08:46→16:14)
[2016-11-15] MEDS: Sucralfate 1 gm/10 ml Oral Susp UD PEG SCH ×3 (08:46→16:14)
[2016-11-15] MEDS: Enoxaparin 40 mg Syringe SC SCH (08:46)
[2016-11-15] MEDS: Tiotropium 18 mcg Cap For Inhalation IH SCH (08:46)
[2016-11-15] MEDS: Ferrous Sulfate 300 mg/5 mL Liq UD PEG SCH (08:47)
[2016-11-15] MEDS: Megestrol Acetate 40 mg/ml Cup PEG SCH (08:47)
[2016-11-15] MEDS: Azithromycin 500 MG in Sodium Chloride 0.9% 250 ML IVPB SCH (10:58)
[2016-11-15 12:25] LABS: NEUTROPHIL 88 % (42-75); TOTAL CELLS COUNTED 100
--- NOTE | 2016-11-15 12:36 | CP.PCM.PN ---
Subjective - Date & Time of Evaluation Date of Evaluation: 11/15/16 Time of Evaluation: 12:36 - Subjective Subjective: Doing well. Seated in bedside chair eating lunch. NOT coughing while eating at the present time. 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 Needs continual reminders to deep breathe and cough. Lots of sonorous rhonchi are present in the lower lobes L>R. No audible wheezing or bronchial breathing, no egophony. Will add CPT with flutter valve. Will repeat CT chest w/o contrast looking for possible bronchiectasis. Reduced steroids and discontinued montelukast. Should have another video swallow. Objective - Vital Signs/Intake and Output Vital Signs (last 24 hours): Temp Pulse Resp BP Pulse Ox 98.3 F 81 18 158/82 H 97 11/15/16 07:35 11/15/16 08:44 11/15/16 07:35 11/15/16 08:50 11/15/16 07:35 Intake and Output: 11/15/16 11/15/16 11:59 23:59 Intake Total 760 Balance 760 - Medications Medications: Current Medications Acetaminophen (Tylenol 325mg Tab) 650 mg PO Q4H PRN PRN Reason: Fever >100.4 F Amiodarone HCl (Cordarone) 200 mg PO DAILY [facility] Last Admin: 11/15/16 08:46 Dose: 200 mg Aspirin (Aspirin Chewable) 81 mg PEG DAILY [facility] Last Admin: 11/15/16 08:46 Dose: 81 mg Dimethicone (Proshield Plus Skin Protectant) 1 applic TOP QSHIFT [facility] Last Admin: 11/14/16 08:26 Dose: 1 applic Enoxaparin Sodium (Lovenox) 40 mg SC DAILY [facility] PRN Reason: Protocol Last Admin: 11/15/16 08:46 Dose: 40 mg Ferrous Sulfate (Feosol Liq) 450 mg PEG DAILY [facility] Last Admin: 11/15/16 08:47 Dose: 450 mg Fludrocortisone Acetate (Florinef) 0.1 mg PO DAILY [facility] Last Admin: 11/15/16 08:46 Dose: 0.1 mg Furosemide (Lasix) 20 mg IVP DAILY [facility] Last Admin: 11/15/16 08:50 Dose: 20 mg Gabapentin (Neurontin) 400 mg PEG HS [facility] Last Admin: 11/14/16 21:34 Dose: 400 mg Gabapentin (Neurontin) 400 mg PEG BID [facility] Last Admin: 11/15/16 08:45 Dose: 400 mg Guaifenesin (Mucinex La) 600 mg PO BID [facility] Last Admin: 11/15/16 08:46 Dose: 600 mg Piperacillin Sod/Tazobactam (Sod 3.375 gm/ Sodium Chloride) 100 mls @ 100 mls/ hr IVPB Q6 [facility] Last Admin: 11/15/16 08:59 Dose: 100 mls/hr Azithromycin 500 mg/ Sodium (Chloride) 250 mls @ 250 mls/hr IVPB DAILY [facility] Last Admin: 11/15/16 10:58 Dose: 250 mls/hr Methylprednisolone 30 mg/ (Sodium Chloride) 50 mls @ 100 mls/hr IVPB Q8 [facility] Last Admin: 11/15/16 08:40 Dose: 100 mls/hr Levalbuterol HCl (Xopenex) 0.63 mg IH Q4H [facility] Last Admin: 11/15/16 12:05 Dose: 0.63 mg Megestrol Acetate (Megace) 400 mg PEG DAILY [facility] Last Admin: 11/15/16 08:47 Dose: 400 mg Metoclopramide HCl (Reglan) 10 mg PEG HS [facility] Last Admin: 11/14/16 21:36 Dose: 10 mg Metoprolol Tartrate (Lopressor) 12.5 mg PO Q12 [facility] Last Admin: 11/15/16 08:44 Dose: 12.5 mg Montelukast Sodium (Singulair) 10 mg PEG HS [facility] Last Admin: 11/14/16 21:36 Dose: 10 mg Ondansetron HCl (Zofran Odt) 4 mg PEG Q8 PRN PRN Reason: Nausea/Vomiting Pantoprazole Sodium (Protonix Susp) 40 mg PEG DAILY [facility] Last Admin: 11/15/16 08:44 Dose: 40 mg Fluticasone/Salmeterol (Advair Diskus 250/50) 1 puff INH Q12 [facility] Last Admin: 11/15/16 08:45 Dose: 1 puff Sucralfate (Carafate Oral Susp) 1 gm PEG TID [facility] Last Admin: 11/15/16 12:12 Dose: 1 gm Tiotropium [place] (Spiriva) 18 mcg IH DAILY [facility] Last Admin: 11/15/16 08:46 Dose: 18 mcg Tramadol HCl (Ultram) 50 mg GT Q6 PRN PRN Reason: pain level 5-10 Last Admin: 11/15/16 10:58 Dose: 50 mg - Labs Labs: 11/15/16 05:30 11/15/16 05:30 Assessment and Plan (1) Pneumonia Status: Acute (2) COPD exacerbation Status: Chronic
--- NOTE | 2016-11-15 15:19 | CT ---
PROCEDURE: CT Chest without contrast HISTORY: pneumonia COMPARISON: 08/04/2016. TECHNIQUE: Contiguous axial images were obtained through the chest without intravenous contrast enhancement. Sagittal and coronal reconstructions were performed. Radiation dose (DLP): 429 mGy-cm. This CT exam was performed using one or more of the following dose reduction techniques: Automated exposure control, adjustment of the mA and/or kV according to patient size, and/or use of iterative reconstruction technique. FINDINGS: LUNGS: Bibasilar small infiltrates are noted. There are diffuse bilateral interstitial infiltrates with areas of ground-glass density as well as tree-in-bud interstitial changes. MEDIASTINUM: Unremarkable thoracic aorta. No aneurysm. Normal sized heart. Main pulmonary artery unremarkable. No vascular congestion. No lymphadenopathy. Diffuse vascular calcifications are noted. PLEURA: Small bilateral pleural effusions. BONES: No fracture. No destructive lesion. UPPER ABDOMEN: Grossly unremarkable. OTHER FINDINGS: None. IMPRESSION: Diffuse mild bilateral interstitial infiltrates with more pronounced consolidative infiltrates at the lung bases. Small bilateral pleural effusions.
[2016-11-15] MEDS: Acetylcysteine 10% 4 ML IH SCH (19:12)
[2016-11-15] MEDS: Levalbuterol 0.63 MG/3 ML Inhal Soln UD IH PRN (19:12)
--- NOTE | 2016-11-15 19:59 | CP.PCM.PN ---
Subjective - Date & Time of Evaluation Date of Evaluation: 11/15/16 Time of Evaluation: 02:22 - Subjective Subjective: DOing better Pulmonary note appreciated Objective - Vital Signs/Intake and Output Vital Signs (last 24 hours): Temp Pulse Resp BP Pulse Ox 97.8 F 70 20 146/69 99 11/15/16 16:35 11/15/16 16:35 11/15/16 16:35 11/15/16 16:35 11/15/16 16:35 Intake and Output: 11/15/16 11/16/16 18:59 06:59 Intake Total 760 Balance 760 - Medications Medications: Current Medications Acetaminophen (Tylenol 325mg Tab) 650 mg PO Q4H PRN PRN Reason: Fever >100.4 F Acetylcysteine (Mucomyst 10% 4ml) 2 ml IH RBID [facility] Last Admin: 11/15/16 19:12 Dose: 2 ml Amiodarone HCl (Cordarone) 200 mg PO DAILY [facility] Last Admin: 11/15/16 08:46 Dose: 200 mg Aspirin (Aspirin Chewable) 81 mg PEG DAILY [facility] Last Admin: 11/15/16 08:46 Dose: 81 mg Dimethicone (Proshield Plus Skin Protectant) 1 applic TOP QSHIFT [facility] Last Admin: 11/14/16 08:26 Dose: 1 applic Enoxaparin Sodium (Lovenox) 40 mg SC DAILY [facility] PRN Reason: Protocol Last Admin: 11/15/16 08:46 Dose: 40 mg Ferrous Sulfate (Feosol Liq) 450 mg PEG DAILY [facility] Last Admin: 11/15/16 08:47 Dose: 450 mg Fludrocortisone Acetate (Florinef) 0.1 mg PO DAILY [facility] Last Admin: 11/15/16 08:46 Dose: 0.1 mg Furosemide (Lasix) 20 mg IVP DAILY [facility] Last Admin: 11/15/16 08:50 Dose: 20 mg Gabapentin (Neurontin) 400 mg PEG HS [facility] Last Admin: 11/14/16 21:34 Dose: 400 mg Gabapentin (Neurontin) 400 mg PEG BID [facility] Last Admin: 11/15/16 16:14 Dose: 400 mg Guaifenesin (Mucinex La) 600 mg PO BID [facility] Last Admin: 11/15/16 16:14 Dose: 600 mg Piperacillin Sod/Tazobactam (Sod 3.375 gm/ Sodium Chloride) 100 mls @ 100 mls/ hr IVPB Q6 [facility] Last Admin: 11/15/16 16:13 Dose: 100 mls/hr Azithromycin 500 mg/ Sodium (Chloride) 250 mls @ 250 mls/hr IVPB DAILY [facility] Last Admin: 11/15/16 10:58 Dose: 250 mls/hr Methylprednisolone 30 mg/ (Sodium Chloride) 50 mls @ 100 mls/hr IVPB Q8 [facility] Last Admin: 11/15/16 16:31 Dose: 100 mls/hr Methylprednisolone 30 mg/ (Sodium Chloride) 50 mls @ 100 mls/hr IVPB Q12 [facility] Levalbuterol HCl (Xopenex) 0.63 mg IH RQ4 PRN PRN Reason: Cough and congestion Last Admin: 11/15/16 19:12 Dose: 0.63 mg Megestrol Acetate (Megace) 400 mg PEG DAILY [facility] Last Admin: 11/15/16 08:47 Dose: 400 mg Metoclopramide HCl (Reglan) 10 mg PEG HS [facility] Last Admin: 11/14/16 21:36 Dose: 10 mg Metoprolol Tartrate (Lopressor) 12.5 mg PO Q12 [facility] Last Admin: 11/15/16 08:44 Dose: 12.5 mg Ondansetron HCl (Zofran Odt) 4 mg PEG Q8 PRN PRN Reason: Nausea/Vomiting Pantoprazole Sodium (Protonix Susp) 40 mg PEG DAILY [facility] Last Admin: 11/15/16 08:44 Dose: 40 mg Fluticasone/Salmeterol (Advair Diskus 250/50) 1 puff INH Q12 [facility] Last Admin: 11/15/16 08:45 Dose: 1 puff Sucralfate (Carafate Oral Susp) 1 gm PEG TID [facility] Last Admin: 11/15/16 16:14 Dose: 1 gm Tiotropium [place] (Spiriva) 18 mcg IH DAILY [facility] Last Admin: 11/15/16 08:46 Dose: 18 mcg Tramadol HCl (Ultram) 50 mg GT Q6 PRN PRN Reason: pain level 5-10 Last Admin: 11/15/16 10:58 Dose: 50 mg - Labs Labs: 11/15/16 05:30 11/15/16 05:30 - Respiratory Exam Respiratory Exam: NORMAL BREATHING PATTERN - Cardiovascular Exam Cardiovascular Exam: REGULAR RHYTHM - GI/Abdominal Exam GI & Abdominal Exam: Normal Bowel Sounds Assessment and Plan - Assessment and Plan (Free Text) Assessment: Acute Respiratory Distress Aspiration?? HX COPD S/P Klebsiella RLL Pneumonia? S/P L pneumothorax ABX IVF Steroids Pulmonary Hx Dec oral intake swallowing?? PEG Jevity and oral feedings s/p + C-diff + Ag -toxin GI consult Repeat swallowing evaluation Hx of Orthostatic Hypotension at NH S/P V-fib/ V-tach 2 to pulmonary dx A-fib CAD S/P CABG Amiodorone ??florinef Cardiology HX Hyperkalemia etiol ?? s/p SMITA/ CKD Cortisol level ?? Chronic chest wall pain
[2016-11-16] MEDS: Piperacillin/Tazobact 3.375 GM in Sodium Chloride 0.9% 100 ML IVPB SCH ×4 (03:59→23:00)
[2016-11-16] MEDS: methylPREDNISolone 30 MG in Sodium Chloride 0.9% 50 ML IVPB SCH ×2 (05:46→17:16)
[2016-11-16] MEDS: Acetylcysteine 10% 4 ML IH SCH ×2 (08:05→19:49)
[2016-11-16] MEDS: Levalbuterol 0.63 MG/3 ML Inhal Soln UD IH PRN ×2 (08:05→19:50)
[2016-11-16] MEDS: Fluticasone-Salmeterol 250-50mcg Diskus INH SCH ×2 (09:17→21:48)
[2016-11-16] MEDS: Megestrol Acetate 40 mg/ml Cup PEG SCH (09:18)
[2016-11-16] MEDS: Enoxaparin 40 mg Syringe SC SCH (09:18)
[2016-11-16] MEDS: Sucralfate 1 gm/10 ml Oral Susp UD PEG SCH ×3 (09:18→17:10)
[2016-11-16] MEDS: Tiotropium 18 mcg Cap For Inhalation IH SCH (09:22)
[2016-11-16] MEDS: guaiFENesin 600 mg ER Tab PO SCH ×2 (09:22→17:11)
[2016-11-16] MEDS: Pantoprazole 40 mg Susp UD PEG SCH (09:25)
[2016-11-16] MEDS: Ferrous Sulfate 300 mg/5 mL Liq UD PEG SCH (09:26)
[2016-11-16] MEDS: Azithromycin 500 MG in Sodium Chloride 0.9% 250 ML IVPB SCH (09:27)
--- NOTE | 2016-11-16 12:00 | CP.PCM.PN ---
Subjective - Date & Time of Evaluation Date of Evaluation: 11/16/16 Time of Evaluation: 11:00 - Subjective Subjective: NO CHEST PAIN EXCEPT FOR CHEST WALL TENDERNESS BREATHING BETTER Objective - Vital Signs/Intake and Output Vital Signs (last 24 hours): Temp Pulse Resp BP Pulse Ox 98.1 F 57 L 18 170/84 H 100 11/16/16 07:33 11/16/16 09:24 11/16/16 07:33 11/16/16 09:25 11/16/16 07:33 Intake and Output: 11/16/16 11/16/16 06:59 18:59 Intake Total 660 Output Total 800 Balance -140 - Medications Medications: Current Medications Acetaminophen (Tylenol 325mg Tab) 650 mg PO Q4H PRN PRN Reason: Fever >100.4 F Acetylcysteine (Mucomyst 10% 4ml) 2 ml IH RBID [facility] Last Admin: 11/16/16 08:05 Dose: 2 ml Amiodarone HCl (Cordarone) 200 mg PO DAILY [facility] Last Admin: 11/16/16 09:24 Dose: 200 mg Aspirin (Aspirin Chewable) 81 mg PEG DAILY [facility] Last Admin: 11/16/16 09:24 Dose: 81 mg Dimethicone (Proshield Plus Skin Protectant) 1 applic TOP QSHIFT [facility] Last Admin: 11/14/16 08:26 Dose: 1 applic Enoxaparin Sodium (Lovenox) 40 mg SC DAILY [facility] PRN Reason: Protocol Last Admin: 11/16/16 09:18 Dose: 40 mg Ferrous Sulfate (Feosol Liq) 450 mg PEG DAILY [facility] Last Admin: 11/16/16 09:26 Dose: 450 mg Fludrocortisone Acetate (Florinef) 0.1 mg PO DAILY [facility] Last Admin: 11/16/16 09:25 Dose: 0.1 mg Furosemide (Lasix) 20 mg IVP DAILY [facility] Last Admin: 11/16/16 09:25 Dose: 20 mg Gabapentin (Neurontin) 400 mg PEG HS [facility] Last Admin: 11/15/16 21:13 Dose: 400 mg Gabapentin (Neurontin) 400 mg PEG BID [facility] Last Admin: 11/16/16 09:23 Dose: 400 mg Guaifenesin (Mucinex La) 600 mg PO BID [facility] Last Admin: 11/16/16 09:22 Dose: 600 mg Piperacillin Sod/Tazobactam (Sod 3.375 gm/ Sodium Chloride) 100 mls @ 100 mls/ hr IVPB Q6 [facility] Last Admin: 11/16/16 11:29 Dose: 100 mls/hr Azithromycin 500 mg/ Sodium (Chloride) 250 mls @ 250 mls/hr IVPB DAILY [facility] Last Admin: 11/16/16 09:27 Dose: 250 mls/hr Methylprednisolone 30 mg/ (Sodium Chloride) 50 mls @ 100 mls/hr IVPB Q12@0500, 1700 [facility] Last Admin: 11/16/16 05:46 Dose: 100 mls/hr Levalbuterol HCl (Xopenex) 0.63 mg IH RQ4 PRN PRN Reason: Cough and congestion Last Admin: 11/16/16 08:05 Dose: 0.63 mg Megestrol Acetate (Megace) 400 mg PEG DAILY [facility] Last Admin: 11/16/16 09:18 Dose: 400 mg Metoclopramide HCl (Reglan) 10 mg PEG HS [facility] Last Admin: 11/15/16 21:12 Dose: 10 mg Metoprolol Tartrate (Lopressor) 12.5 mg PO Q12 [facility] Last Admin: 11/16/16 09:18 Dose: 12.5 mg Ondansetron HCl (Zofran Odt) 4 mg PEG Q8 PRN PRN Reason: Nausea/Vomiting Pantoprazole Sodium (Protonix Susp) 40 mg PEG DAILY [facility] Last Admin: 11/16/16 09:25 Dose: 40 mg Fluticasone/Salmeterol (Advair Diskus 250/50) 1 puff INH Q12 [facility] Last Admin: 11/16/16 09:17 Dose: 1 puff Sucralfate (Carafate Oral Susp) 1 gm PEG TID [facility] Last Admin: 11/16/16 09:18 Dose: 1 gm Tiotropium [place] (Spiriva) 18 mcg IH DAILY [facility] Last Admin: 11/16/16 09:22 Dose: 18 mcg Tramadol HCl (Ultram) 50 mg GT Q6 PRN PRN Reason: pain level 5-10 Last Admin: 11/16/16 08:20 Dose: 50 mg - Labs Labs: 11/15/16 05:30 11/15/16 05:30 - Respiratory Exam Respiratory Exam: Rales, Rhonchi - Cardiovascular Exam Cardiovascular Exam: REGULAR RHYTHM, +S1, +S2 - Extremities Exam Extremities Exam: Normal Inspection - Additional Findings Additional findings: CT SCAN WITH BILATPNEUMONIS K+ 3.7 PULMONARY NOTE SEEN Assessment and Plan - Assessment and Plan (Free Text) Assessment: CAD-ATABLE S/P ATRIAL FIBRILLATION-REMAINS IN NSR PNEUMONIA Plan: CONTINUE PRESENT TREATMENT WITH ANTIBIOTICS, AMIODARONE, ASPIRIN, FUROSEMIDE AND METOPROLOL FOR SWALLOW EVALUATION
--- NOTE | 2016-11-16 16:37 | CP.PCM.PN ---
Subjective - Date & Time of Evaluation Date of Evaluation: 11/16/16 Time of Evaluation: 22:22 - Subjective Subjective: Above noted Objective - Vital Signs/Intake and Output Vital Signs (last 24 hours): Temp Pulse Resp BP Pulse Ox 98.1 F 57 L 18 170/84 H 100 11/16/16 07:33 11/16/16 09:24 11/16/16 07:33 11/16/16 09:25 11/16/16 07:33 Intake and Output: 11/16/16 11/16/16 06:59 18:59 Intake Total 660 Output Total 800 Balance -140 - Medications Medications: Current Medications Acetaminophen (Tylenol 325mg Tab) 650 mg PO Q4H PRN PRN Reason: Fever >100.4 F Acetylcysteine (Mucomyst 10% 4ml) 2 ml IH RBID [facility] Last Admin: 11/16/16 08:05 Dose: 2 ml Amiodarone HCl (Cordarone) 200 mg PO DAILY [facility] Last Admin: 11/16/16 09:24 Dose: 200 mg Aspirin (Aspirin Chewable) 81 mg PEG DAILY [facility] Last Admin: 11/16/16 09:24 Dose: 81 mg Dimethicone (Proshield Plus Skin Protectant) 1 applic TOP QSHIFT [facility] Last Admin: 11/14/16 08:26 Dose: 1 applic Enoxaparin Sodium (Lovenox) 40 mg SC DAILY [facility] PRN Reason: Protocol Last Admin: 11/16/16 09:18 Dose: 40 mg Ferrous Sulfate (Feosol Liq) 450 mg PEG DAILY [facility] Last Admin: 11/16/16 09:26 Dose: 450 mg Fludrocortisone Acetate (Florinef) 0.1 mg PO DAILY [facility] Last Admin: 11/16/16 09:25 Dose: 0.1 mg Furosemide (Lasix) 20 mg IVP DAILY [facility] Last Admin: 11/16/16 09:25 Dose: 20 mg Gabapentin (Neurontin) 400 mg PEG HS [facility] Last Admin: 11/15/16 21:13 Dose: 400 mg Gabapentin (Neurontin) 400 mg PEG BID [facility] Last Admin: 11/16/16 09:23 Dose: 400 mg Guaifenesin (Mucinex La) 600 mg PO BID [facility] Last Admin: 11/16/16 09:22 Dose: 600 mg Piperacillin Sod/Tazobactam (Sod 3.375 gm/ Sodium Chloride) 100 mls @ 100 mls/ hr IVPB Q6 [facility] Last Admin: 11/16/16 11:29 Dose: 100 mls/hr Azithromycin 500 mg/ Sodium (Chloride) 250 mls @ 250 mls/hr IVPB DAILY [facility] Last Admin: 11/16/16 09:27 Dose: 250 mls/hr Methylprednisolone 30 mg/ (Sodium Chloride) 50 mls @ 100 mls/hr IVPB Q12@0500, 1700 [facility] Last Admin: 11/16/16 05:46 Dose: 100 mls/hr Levalbuterol HCl (Xopenex) 0.63 mg IH RQ4 PRN PRN Reason: Cough and congestion Last Admin: 11/16/16 08:05 Dose: 0.63 mg Megestrol Acetate (Megace) 400 mg PEG DAILY [facility] Last Admin: 11/16/16 09:18 Dose: 400 mg Metoclopramide HCl (Reglan) 10 mg PEG HS [facility] Last Admin: 11/15/16 21:12 Dose: 10 mg Metoprolol Tartrate (Lopressor) 12.5 mg PO Q12 [facility] Last Admin: 11/16/16 09:18 Dose: 12.5 mg Ondansetron HCl (Zofran Odt) 4 mg PEG Q8 PRN PRN Reason: Nausea/Vomiting Pantoprazole Sodium (Protonix Susp) 40 mg PEG DAILY [facility] Last Admin: 11/16/16 09:25 Dose: 40 mg Fluticasone/Salmeterol (Advair Diskus 250/50) 1 puff INH Q12 [facility] Last Admin: 11/16/16 09:17 Dose: 1 puff Sucralfate (Carafate Oral Susp) 1 gm PEG TID [facility] Last Admin: 11/16/16 09:18 Dose: 1 gm Tiotropium [place] (Spiriva) 18 mcg IH DAILY [facility] Last Admin: 11/16/16 09:22 Dose: 18 mcg Tramadol HCl (Ultram) 50 mg GT Q6 PRN PRN Reason: pain level 5-10 Last Admin: 11/16/16 08:20 Dose: 50 mg - Labs Labs: 11/15/16 05:30 11/15/16 05:30 - Respiratory Exam Respiratory Exam: NORMAL BREATHING PATTERN - Cardiovascular Exam Cardiovascular Exam: REGULAR RHYTHM - GI/Abdominal Exam GI & Abdominal Exam: Normal Bowel Sounds Assessment and Plan - Assessment and Plan (Free Text) Assessment: S/P Acute Respiratory Distress Aspiration?? HX COPD S/P Klebsiella RLL Pneumonia? S/P L pneumothorax ABX IVF Steroids Pulmonary Hx Dec oral intake improved on Megace swallowing?? aspiration?? PEG Jevity and oral feedings GI consult Repeat swallowing evaluation Hx s/p + C-diff + Ag -toxin Hx of Orthostatic Hypotension at NH S/P V-fib/ V-tach 2 to pulmonary dx A-fib CAD S/P CABG Amiodorone ?? florinef Cardiology HX Hyperkalemia etiol ?? s/p SMITA/ CKD Adrenal insufficiency?? Cortisol level ?? Chronic chest wall pain
[2016-11-17] MEDS: Piperacillin/Tazobact 3.375 GM in Sodium Chloride 0.9% 100 ML IVPB SCH ×4 (03:43→22:35)
[2016-11-17] MEDS: methylPREDNISolone 30 MG in Sodium Chloride 0.9% 50 ML IVPB SCH ×2 (04:57→17:21)
--- NOTE | 2016-11-17 08:42 | CP.PCM.PN ---
Subjective - Date & Time of Evaluation Date of Evaluation: 11/17/16 Time of Evaluation: 08:35 - Subjective Subjective: Has done well on current regimen. CT chest with residual small effusion and mild ILD. From a respiratory standpoint he is stable and able to be discharged. Objective - Vital Signs/Intake and Output Vital Signs (last 24 hours): Temp Pulse Resp BP Pulse Ox 98.1 F 81 18 167/93 H 95 11/17/16 07:39 11/17/16 07:39 11/17/16 07:39 11/17/16 07:39 11/17/16 07:39 Intake and Output: 11/16/16 11/17/16 23:59 11:59 Intake Total 1010 Balance 1010 - Medications Medications: Current Medications Acetaminophen (Tylenol 325mg Tab) 650 mg PO Q4H PRN PRN Reason: Fever >100.4 F Acetylcysteine (Mucomyst 10% 4ml) 2 ml IH RBID [facility] Last Admin: 11/16/16 19:49 Dose: 2 ml Amiodarone HCl (Cordarone) 200 mg PO DAILY [facility] [place] Last Admin: 11/16/16 09:24 Dose: 200 mg Aspirin (Aspirin Chewable) 81 mg PEG DAILY [facility] [place] Last Admin: 11/16/16 09:24 Dose: 81 mg Dimethicone (Proshield Plus Skin Protectant) 1 applic TOP QSHIFT [facility] [place] Last Admin: 11/14/16 08:26 Dose: 1 applic Enoxaparin Sodium (Lovenox) 40 mg SC DAILY [facility] [place] PRN Reason: Protocol Last Admin: 11/16/16 09:18 Dose: 40 mg Ferrous Sulfate (Feosol Liq) 450 mg PEG DAILY [facility] [place] Last Admin: 11/16/16 09:26 Dose: 450 mg Fludrocortisone Acetate (Florinef) 0.1 mg PO DAILY [facility] [place] Last Admin: 11/16/16 09:25 Dose: 0.1 mg Furosemide (Lasix) 20 mg IVP DAILY [facility] [place] Last Admin: 11/16/16 09:25 Dose: 20 mg Gabapentin (Neurontin) 400 mg PEG HS [facility] [place] Last Admin: 11/16/16 22:49 Dose: 400 mg Gabapentin (Neurontin) 400 mg PEG BID [facility] [place] Last Admin: 11/16/16 17:11 Dose: 400 mg Guaifenesin (Mucinex La) 600 mg PO BID [facility] [place] Last Admin: 11/16/16 17:11 Dose: 600 mg Piperacillin Sod/Tazobactam (Sod 3.375 gm/ Sodium Chloride) 100 mls @ 100 mls/ hr IVPB Q6 [facility] [place] Last Admin: 11/17/16 03:43 Dose: 100 mls/hr Azithromycin 500 mg/ Sodium (Chloride) 250 mls @ 250 mls/hr IVPB DAILY [facility] [place] Last Admin: 11/16/16 09:27 Dose: 250 mls/hr Methylprednisolone 30 mg/ (Sodium Chloride) 50 mls @ 100 mls/hr IVPB Q12@0500, 1700 [facility] [place] Last Admin: 11/17/16 04:57 Dose: 100 mls/hr Levalbuterol HCl (Xopenex) 0.63 mg IH RQ4 PRN PRN Reason: Cough and congestion Last Admin: 11/16/16 19:50 Dose: 0.63 mg Megestrol Acetate (Megace) 400 mg PEG DAILY [facility] [place] Last Admin: 11/16/16 09:18 Dose: 400 mg Metoclopramide HCl (Reglan) 10 mg PEG HS [facility] [place] Last Admin: 11/16/16 22:48 Dose: 10 mg Metoprolol Tartrate (Lopressor) 12.5 mg PO Q12 [facility] [place] Last Admin: 11/16/16 22:00 Dose: 12.5 mg Ondansetron HCl (Zofran Odt) 4 mg PEG Q8 PRN PRN Reason: Nausea/Vomiting Pantoprazole Sodium (Protonix Susp) 40 mg PEG DAILY [facility] [place] Last Admin: 11/16/16 09:25 Dose: 40 mg Fluticasone/Salmeterol (Advair Diskus 250/50) 1 puff INH Q12 [facility] [place] Last Admin: 11/16/16 21:48 Dose: 1 puff Sucralfate (Carafate Oral Susp) 1 gm PEG TID [facility] [place] Last Admin: 11/16/16 17:10 Dose: 1 gm Tiotropium [place] (Spiriva) 18 mcg IH DAILY [facility] [place] Last Admin: 11/16/16 09:22 Dose: 18 mcg - Labs Labs: 11/15/16 05:30 11/15/16 05:30 Assessment and Plan (1) Pneumonia Status: Acute (2) COPD exacerbation Status: Chronic
--- NOTE | 2016-11-17 09:02 | CP.PCM.PN ---
Subjective - Date & Time of Evaluation Date of Evaluation: 11/17/16 Time of Evaluation: 08:45 - Subjective Subjective: NO CHEST EXCEPT FOR CHEST WALL TENDERNESS BREATHING BETTER Objective - Vital Signs/Intake and Output Vital Signs (last 24 hours): Temp Pulse Resp BP Pulse Ox 98.1 F 81 18 167/93 H 95 11/17/16 07:39 11/17/16 07:39 11/17/16 07:39 11/17/16 07:39 11/17/16 07:39 - Medications Medications: Current Medications Acetaminophen (Tylenol 325mg Tab) 650 mg PO Q4H PRN PRN Reason: Fever >100.4 F Acetylcysteine (Mucomyst 10% 4ml) 2 ml IH RBID [facility] Last Admin: 11/16/16 19:49 Dose: 2 ml Amiodarone HCl (Cordarone) 200 mg PO DAILY [facility] Last Admin: 11/16/16 09:24 Dose: 200 mg Aspirin (Aspirin Chewable) 81 mg PEG DAILY [facility] Last Admin: 11/16/16 09:24 Dose: 81 mg Dimethicone (Proshield Plus Skin Protectant) 1 applic TOP QSHIFT [facility] Last Admin: 11/14/16 08:26 Dose: 1 applic Enoxaparin Sodium (Lovenox) 40 mg SC DAILY [facility] PRN Reason: Protocol Last Admin: 11/16/16 09:18 Dose: 40 mg Ferrous Sulfate (Feosol Liq) 450 mg PEG DAILY [facility] Last Admin: 11/16/16 09:26 Dose: 450 mg Fludrocortisone Acetate (Florinef) 0.1 mg PO DAILY [facility] Last Admin: 11/16/16 09:25 Dose: 0.1 mg Furosemide (Lasix) 20 mg IVP DAILY [facility] Last Admin: 11/16/16 09:25 Dose: 20 mg Gabapentin (Neurontin) 400 mg PEG HS [facility] Last Admin: 11/16/16 22:49 Dose: 400 mg Gabapentin (Neurontin) 400 mg PEG BID [facility] Last Admin: 11/16/16 17:11 Dose: 400 mg Guaifenesin (Mucinex La) 600 mg PO BID [facility] Last Admin: 11/16/16 17:11 Dose: 600 mg Piperacillin Sod/Tazobactam (Sod 3.375 gm/ Sodium Chloride) 100 mls @ 100 mls/ hr IVPB Q6 [facility] Last Admin: 11/17/16 03:43 Dose: 100 mls/hr Azithromycin 500 mg/ Sodium (Chloride) 250 mls @ 250 mls/hr IVPB DAILY [facility] Last Admin: 11/16/16 09:27 Dose: 250 mls/hr Methylprednisolone 30 mg/ (Sodium Chloride) 50 mls @ 100 mls/hr IVPB Q12@0500, 1700 [facility] Last Admin: 11/17/16 04:57 Dose: 100 mls/hr Levalbuterol HCl (Xopenex) 0.63 mg IH RQ4 PRN PRN Reason: Cough and congestion Last Admin: 11/16/16 19:50 Dose: 0.63 mg Megestrol Acetate (Megace) 400 mg PEG DAILY [facility] Last Admin: 11/16/16 09:18 Dose: 400 mg Metoclopramide HCl (Reglan) 10 mg PEG HS [facility] Last Admin: 11/16/16 22:48 Dose: 10 mg Metoprolol Tartrate (Lopressor) 12.5 mg PO Q12 [facility] Last Admin: 11/16/16 22:00 Dose: 12.5 mg Ondansetron HCl (Zofran Odt) 4 mg PEG Q8 PRN PRN Reason: Nausea/Vomiting Pantoprazole Sodium (Protonix Susp) 40 mg PEG DAILY [facility] Last Admin: 11/16/16 09:25 Dose: 40 mg Fluticasone/Salmeterol (Advair Diskus 250/50) 1 puff INH Q12 [facility] Last Admin: 11/16/16 21:48 Dose: 1 puff Sucralfate (Carafate Oral Susp) 1 gm PEG TID [facility] Last Admin: 11/16/16 17:10 Dose: 1 gm Tiotropium [place] (Spiriva) 18 mcg IH DAILY [facility] Last Admin: 11/16/16 09:22 Dose: 18 mcg - Labs Labs: 11/15/16 05:30 11/15/16 05:30 - Respiratory Exam Additional comments: MUCH CLEARER BUT STILL WITH MILD RALES - Cardiovascular Exam Cardiovascular Exam: REGULAR RHYTHM, +S1, +S2 - Extremities Exam Extremities Exam: Normal Inspection - Additional Findings Additional findings: CAD-STABLE S/P ATRIAL FIBRILLATION-NOW IN NSR PNEUMONIA COPD Assessment and Plan - Assessment and Plan (Free Text) Plan: CONTINUE AMIODARONE, ASPIRIN AND FUROSEMIDE
[2016-11-17] MEDS: Fluticasone-Salmeterol 250-50mcg Diskus INH SCH ×2 (09:09→22:00)
[2016-11-17] MEDS: Enoxaparin 40 mg Syringe SC SCH (09:10)
[2016-11-17] MEDS: Sucralfate 1 gm/10 ml Oral Susp UD PEG SCH ×3 (09:10→17:16)
[2016-11-17] MEDS: Megestrol Acetate 40 mg/ml Cup PEG SCH (09:11)
[2016-11-17] MEDS: Ferrous Sulfate 300 mg/5 mL Liq UD PEG SCH (09:12)
[2016-11-17] MEDS: guaiFENesin 600 mg ER Tab PO SCH ×2 (09:12→17:16)
[2016-11-17] MEDS: Pantoprazole 40 mg Susp UD PEG SCH (09:13)
[2016-11-17] MEDS: Tiotropium 18 mcg Cap For Inhalation IH SCH (09:17)
[2016-11-17] MEDS: Azithromycin 500 MG in Sodium Chloride 0.9% 250 ML IVPB SCH (09:18)
[2016-11-17] MEDS: Acetylcysteine 10% 4 ML IH SCH ×2 (10:21→19:25)
[2016-11-17] MEDS: Levalbuterol 0.63 MG/3 ML Inhal Soln UD IH PRN ×2 (10:22→19:24)
--- NOTE | 2016-11-17 11:32 | IP.NPCORE ---
Heart Failure Core Measure - Heart Failure Ejection Fraction: Less Than 40 % Left Ventricular Function to be assessed after discharge: Yes CLEVE Inhibitor Prescribed: No Contraindication/Reason for not providing: N/a Beta-Tim Prescribed: Metoprolol Succinate Angiotensin II Receptor Tim Prescribed: No Contraindication/Reason for not providing: N/a AnticoagulationTherapy for Atrial Fibrillation/Atrialflutter: No Contraindication/Reason for not providing: N/a. Pt on amiodarone Aldosterone Antagonist Prescribed: No Contraindication/Reason for not providing: Pt on lasix Hydralazine Nitrate Prescribed: No Contraindication/Reason for not providing: N/a Implantable Cardioverter Defibrillator Therapy: No Contraindication/Reason for not providing: N/a Cardiac Resynchronization Therapy Prescribed: No Contraindication/Reason for not providing: N/a - Follow up [facility] be discharged to: [facility] (PMD will follow) Follow Up Date (must be within 7 days from discharge): 11/19/16 Follow Up Time: 09:00 Pneumonia Progress Notes - Oxygenation Assessment (REQUIRED) O2 Saturation: 97 Oxygen Delivery Method: Room Air Documented P02: Yes - Blood Cultures (REQUIRED) Culture drawn: Yes - Initial Antibiotic Initial Antibiotic given within Four Hours:: Yes - Appropriate Antibiotic Appropriate Antibiotic within 24 hours of Admission:: Yes Current Antibiotic: Azithromycin/Zosyn No change in antibiotics: Yes - Pneumonia Vaccine Pneumonia Vaccine: Yes
[2016-11-17 12:08] LABS: HEMATOCRIT 27.2 % (35.0-51.0); MEAN CELL VOLUME 89.6 fl (80.0-94.0); MEAN CORPUSCULAR HEMOGLOBIN 28.6 pg (27.0-31.0); MEAN CORPUSCULAR HGB CONC 31.9 g/dL (33.0-37.0); RED CELL DISTRIBUTION WIDTH 16.3 % (11.5-14.5)
[2016-11-17 12:11] LABS: CHLORIDE 101 mmol/L (98-107)
[2016-11-17 12:12] LABS: POTASSIUM 2.9 MMOL/L (3.6-5.0); SODIUM 142 mmol/l (132-148)
[2016-11-17 12:14] LABS: GFR AFRICAN-AMERICAN > 60; WHITE BLOOD COUNT 14.4 K/uL (4.8-10.8)
[2016-11-17 12:15] LABS: BLOOD UREA NITROGEN 35 mg/dl (9-20); CALCIUM 8.4 mg/dL (8.4-10.2); CARBON DIOXIDE 28 mmol/L (22-30); GLUCOSE,RANDOM 308 mg/dL (75-110)
[2016-11-17] MEDS ORDERED: Potassium Chloride 20 mEq ER Tab PO STA (13:43)
[2016-11-17] MEDS: Potassium CL 10mEq/100ml 100 ML IVPB SCH ×4 (16:00→18:27)
[2016-11-17 19:06] LABS: BLOOD UREA NITROGEN 36 mg/dl (9-20); CALCIUM 8.3 mg/dL (8.4-10.2); CARBON DIOXIDE 27 mmol/L (22-30); CHLORIDE 103 mmol/L (98-107); GFR AFRICAN-AMERICAN > 60; GLUCOSE,RANDOM 128 mg/dL (75-110); POTASSIUM 3.4 MMOL/L (3.6-5.0); SODIUM 140 mmol/l (132-148)
--- NOTE | 2016-11-17 23:10 | CP.PCM.PN ---
Subjective - Date & Time of Evaluation Date of Evaluation: 11/17/16 Time of Evaluation: 22:22 - Subjective Subjective: K+ 2.9 WBC 14k Objective - Vital Signs/Intake and Output Vital Signs (last 24 hours): Temp Pulse Resp BP Pulse Ox 98.2 F 81 20 153/79 H 96 11/17/16 16:43 11/17/16 22:00 11/17/16 16:43 11/17/16 22:00 11/17/16 16:43 - Medications Medications: Current Medications Acetaminophen (Tylenol 325mg Tab) 650 mg PO Q4H PRN PRN Reason: Fever >100.4 F Acetylcysteine (Mucomyst 10% 4ml) 2 ml IH RBID [facility] Last Admin: 11/17/16 19:25 Dose: Not Given Amiodarone HCl (Cordarone) 200 mg PO DAILY [facility] Last Admin: 11/17/16 09:14 Dose: 200 mg Aspirin (Aspirin Chewable) 81 mg PEG DAILY [facility] Last Admin: 11/17/16 09:13 Dose: 81 mg Dimethicone (Proshield Plus Skin Protectant) 1 applic TOP QSHIFT [facility] Last Admin: 11/14/16 08:26 Dose: 1 applic Ferrous Sulfate (Feosol Liq) 450 mg PEG DAILY [facility] Last Admin: 11/17/16 09:12 Dose: 450 mg Fludrocortisone Acetate (Florinef) 0.1 mg PO DAILY [facility] Last Admin: 11/17/16 09:12 Dose: 0.1 mg Furosemide (Lasix) 20 mg IVP DAILY [facility] Last Admin: 11/17/16 09:11 Dose: 20 mg Gabapentin (Neurontin) 400 mg PEG HS [facility] Last Admin: 11/17/16 22:20 Dose: 400 mg Gabapentin (Neurontin) 400 mg PEG BID [facility] Last Admin: 11/17/16 17:17 Dose: 400 mg Guaifenesin (Mucinex La) 600 mg PO BID [facility] Last Admin: 11/17/16 17:16 Dose: 600 mg Piperacillin Sod/Tazobactam (Sod 3.375 gm/ Sodium Chloride) 100 mls @ 100 mls/ hr IVPB Q6 [facility] Last Admin: 11/17/16 22:35 Dose: 100 mls/hr Azithromycin 500 mg/ Sodium (Chloride) 250 mls @ 250 mls/hr IVPB DAILY [facility] Last Admin: 11/17/16 09:18 Dose: 250 mls/hr Methylprednisolone 30 mg/ (Sodium Chloride) 50 mls @ 100 mls/hr IVPB Q12@0500, 1700 [facility] Last Admin: 11/17/16 17:21 Dose: 100 mls/hr Levalbuterol HCl (Xopenex) 0.63 mg IH RQ4 PRN PRN Reason: Cough and congestion Last Admin: 11/17/16 19:24 Dose: 0.63 mg Megestrol Acetate (Megace) 400 mg PEG DAILY [facility] Last Admin: 11/17/16 09:11 Dose: 400 mg Metoclopramide HCl (Reglan) 10 mg PEG HS [facility] Last Admin: 11/17/16 22:25 Dose: 10 mg Metoprolol Tartrate (Lopressor) 12.5 mg PO Q12 [facility] Last Admin: 11/17/16 22:00 Dose: 12.5 mg Ondansetron HCl (Zofran Odt) 4 mg PEG Q8 PRN PRN Reason: Nausea/Vomiting Pantoprazole Sodium (Protonix Susp) 40 mg PEG DAILY [facility] Last Admin: 11/17/16 09:13 Dose: 40 mg Fluticasone/Salmeterol (Advair Diskus 250/50) 1 puff INH Q12 [facility] Last Admin: 11/17/16 22:00 Dose: 1 puff Sucralfate (Carafate Oral Susp) 1 gm PEG TID [facility] Last Admin: 11/17/16 17:16 Dose: 1 gm Tiotropium [place] (Spiriva) 18 mcg IH DAILY [facility] Last Admin: 11/17/16 09:17 Dose: 18 mcg Tramadol HCl (Ultram) 50 mg PO Q6 PRN PRN Reason: Pain, moderate (4-7) - Labs Labs: 11/17/16 11:50 11/17/16 18:47 - Cardiovascular Exam Cardiovascular Exam: REGULAR RHYTHM - GI/Abdominal Exam GI & Abdominal Exam: Normal Bowel Sounds Assessment and Plan - Assessment and Plan (Free Text) Assessment: Hypokalemia- etiol? HX Hyperkalemia etiol ?? s/p SMITA/ CKD Adrenal insufficiency?? Cortisol level ?? S/P Acute Respiratory Distress Aspiration?? HX COPD S/P Klebsiella RLL Pneumonia? S/P L pneumothorax ABX IVF Steroids Pulmonary Hx Dec oral intake improved on Megace swallowing?? aspiration?? PEG Jevity and oral feedings GI consult Repeat swallowing evaluation Hx s/p + C-diff + Ag -toxin Hx of Orthostatic Hypotension at NH S/P V-fib/ V-tach 2 to pulmonary dx A-fib CAD S/P CABG Amiodorone ?? florinef Cardiology Chronic chest wall pain Pain meds
--- NOTE | 2016-11-18 01:55 | CON ---
DATE: 11/17/2016 ROOM: 656 HISTORY OF PRESENT ILLNESS: This is a 71-year-old male with known history of type 2 diabetes and hyp ertension, admitted with sudden respiratory distress and is now being referred for persistent hypokal emia as noted thereof. PAST MEDICAL HISTORY: As mentioned above, history of chronic obstructive lung disease with previous admissions for acute respiratory failure and endotracheal intubation at that time with concomitant pn eumonia, history of coronary artery disease with previous myocardial infarction and coronary bypass g raft surgery and supervening severe ischemic cardiomyopathy, history of type 2 diabetes, previously o n oral hypoglycemic drug therapy, but apparently has been on sliding scale coverage with no oral hypo glycemic therapy at this time. History of hypertension and dyslipidemia, history of chronic atrial f ibrillation with also a significant V-tach in the past. Also, history of chronic renal insufficiency with underlying chronic kidney disease, history of chronic anemia as noted. Also, history of previo admissions for congestive heart failure related to underlying severe cardiomyopathy. FAMILY HISTORY: Positive for hypertension and diabetes. SOCIAL HISTORY: The patient has a previous history of smoking and has a very supportive family other marrero. He currently lives in [facility]. REVIEW OF SYSTEMS: Not possible at this time, but the chart has been reviewed in detail and the cons ultants' notes and management have been reviewed in detail. PHYSICAL EXAMINATION: GENERAL: An average built male in no apparent distress. VITAL SIGNS: Blood pressure of 140/80, pulse of 70 beats per minute and regular, temperature 98, res pirations 20, height is 5 feet 8 inches, weight is 125 pounds. HEENT: Head normocephalic. Eyes anicteric with pink conjunctivae. Fundoscopy not possible at this time. Ears, nose and throat otherwise normal. NECK: Supple. Thyroid gland is normal size. No carotid bruits or any cervical adenopathy. CARDIOVASCULAR: Some hyperdynamic precordium. S1, S2 is rapid and irregular. LUNGS: Show scattered rhonchi. ABDOMEN: Flat, soft with positive bowel sounds. EXTREMITIES: No peripheral edema. Pulses are +2 bilaterally. LABORATORY DATA: The initial chemistries showed a BUN of 37, sodium 141, potassium 3.3, chloride 106 , CO2 24, glucose 122, and creatinine 1.3. His glucose levels have ranged from 141 to 308 and 150 to 128 mg/dL. TSH is 0.41. ASSESSMENT: This is a 71-year-old male with a complex medical history with coronary artery disease a nd underlying severe ischemic cardiomyopathy and previous admissions for congestive heart failure and also concomitant cardiac tachyarrhythmias presenting here with acute respiratory distress on the rika k with superimposed acute exacerbation of chronic obstructive pulmonary disease and is now being refe rred for endocrine evaluation because of persistent hypokalemia. In the past, the patient apparently was on Florinef medications at the [facility], which, as we know, could also contribute to hypokal emia, which could be really medication induced at this time; although, we have to rule out any rennin aldosterone disorder underlying the aforementioned chronic recurrent hypokalemia. PLAN OF MANAGEMENT: As discussed with the staff. We will obtain a comprehensive hormonal profile wi th a repeat T4 and TSH as the initial TSH showed a suppressed level of 0.41, although he remains clin ically euthyroid at this time. We will also obtain a serum cortisol and ACTH level with a plasma lakisha nina and plasma aldosterone level at this time. We will obtain serial chemistries and supplement acco rdingly as needed. A hemoglobin A1c will be done to confirm his prior glycemic control and baseline thyroid function studies will be ordered. We will follow. Anabella Sebastian MD cc: [id number] TT: 11/18/2016 01:54:58 Confirmation # [id number] Dictation # [id number] antoinette
[2016-11-18] MEDS: Levalbuterol 0.63 MG/3 ML Inhal Soln UD IH PRN ×2 (02:28→11:17)
[2016-11-18] MEDS ORDERED: Oxycodone/Acetaminophen 5/325 mg Tab PO ONE (02:36)
[2016-11-18] MEDS: Piperacillin/Tazobact 3.375 GM in Sodium Chloride 0.9% 100 ML IVPB SCH ×3 (03:15→16:05)
[2016-11-18] MEDS: methylPREDNISolone 30 MG in Sodium Chloride 0.9% 50 ML IVPB SCH (04:58)
[2016-11-18 07:21] LABS: MEAN CELL VOLUME 89.3 fl (80.0-94.0); MEAN CORPUSCULAR HEMOGLOBIN 28.3 pg (27.0-31.0); MEAN CORPUSCULAR HGB CONC 31.7 g/dL (33.0-37.0); RED CELL DISTRIBUTION WIDTH 15.7 % (11.5-14.5); WHITE BLOOD COUNT 12.9 K/uL (4.8-10.8)
[2016-11-18 08:28] LABS: ALB/GLOB RATIO 0.8 (1.0-2.1); ALKALINE PHOSPHATASE 74 U/L (38-126); ALT/SGPT 34 U/L (21-72); AST/SGOT 21 U/L (17-59); BILIRUBIN,TOTAL 0.3 mg/dl (0.2-1.3); BLOOD UREA NITROGEN 34 mg/dl (9-20); CALCIUM 8.7 mg/dL (8.4-10.2); CARBON DIOXIDE 29 mmol/L (22-30); CHLORIDE 103 mmol/L (98-107); GFR AFRICAN-AMERICAN > 60; GLUCOSE,RANDOM 148 mg/dL (75-110); POTASSIUM 3.5 MMOL/L (3.6-5.0); SODIUM 142 mmol/l (132-148); TOTAL PROTEIN 5.5 G/DL (6.3-8.2)
[2016-11-18] MEDS: Fluticasone-Salmeterol 250-50mcg Diskus INH SCH (08:29)
[2016-11-18] MEDS: Sucralfate 1 gm/10 ml Oral Susp UD PEG SCH ×2 (08:29→14:29)
[2016-11-18] MEDS: Tiotropium 18 mcg Cap For Inhalation IH SCH (08:29)
[2016-11-18] MEDS: guaiFENesin 600 mg ER Tab PO SCH (08:29)
[2016-11-18 08:30] VITALS: RESP 20
[2016-11-18] MEDS: Pantoprazole 40 mg Susp UD PEG SCH (08:30)
[2016-11-18] MEDS: Azithromycin 500 MG in Sodium Chloride 0.9% 250 ML IVPB SCH (08:31)
[2016-11-18] MEDS: Megestrol Acetate 40 mg/ml Cup PEG SCH (08:32)
[2016-11-18] MEDS: Ferrous Sulfate 300 mg/5 mL Liq UD PEG SCH (08:32)
[2016-11-18 08:39] LABS: T4 5.14 ug/dl (5.5-11.0)
[2016-11-18 08:55] LABS: THYROID STIMULATING HORMONE 0.22 mIU/ML (0.46-4.68)
[2016-11-18] MEDS ORDERED: Potassium Chloride 20 mEq ER Tab PO ONE (10:30)
--- NOTE | 2016-11-18 10:30 | CP.PCM.PN ---
Subjective - Date & Time of Evaluation Date of Evaluation: 11/18/16 Time of Evaluation: 10:00 - Subjective Subjective: BREATHING BETTER CHRONIC CHEST WALL TENDERNESS Objective - Vital Signs/Intake and Output Vital Signs (last 24 hours): Temp Pulse Resp BP Pulse Ox 98.2 F 95 H 20 173/85 H 95 11/18/16 08:29 11/18/16 08:30 11/18/16 08:29 11/18/16 08:33 11/18/16 08:29 - Medications Medications: Current Medications Acetaminophen (Tylenol 325mg Tab) 650 mg PO Q4H PRN PRN Reason: Fever >100.4 F Acetylcysteine (Mucomyst 10% 4ml) 2 ml IH RBID [facility] Last Admin: 11/17/16 19:25 Dose: Not Given Amiodarone HCl (Cordarone) 200 mg PO DAILY [facility] Last Admin: 11/18/16 08:30 Dose: 200 mg Aspirin (Aspirin Chewable) 81 mg PEG DAILY [facility] Last Admin: 11/18/16 08:29 Dose: 81 mg Dimethicone (Proshield Plus Skin Protectant) 1 applic TOP QSHIFT [facility] Last Admin: 11/14/16 08:26 Dose: 1 applic Ferrous Sulfate (Feosol Liq) 450 mg PEG DAILY [facility] Last Admin: 11/18/16 08:32 Dose: 450 mg Fludrocortisone Acetate (Florinef) 0.1 mg PO DAILY [facility] Last Admin: 11/18/16 08:29 Dose: 0.1 mg Furosemide (Lasix) 20 mg IVP DAILY [facility] Last Admin: 11/18/16 08:33 Dose: 20 mg Gabapentin (Neurontin) 400 mg PEG HS [facility] Last Admin: 11/17/16 22:20 Dose: 400 mg Gabapentin (Neurontin) 400 mg PEG BID [facility] Last Admin: 11/18/16 08:28 Dose: 400 mg Guaifenesin (Mucinex La) 600 mg PO BID [facility] Last Admin: 11/18/16 08:29 Dose: 600 mg Piperacillin Sod/Tazobactam (Sod 3.375 gm/ Sodium Chloride) 100 mls @ 100 mls/ hr IVPB Q6 [facility] Last Admin: 11/18/16 03:15 Dose: 100 mls/hr Azithromycin 500 mg/ Sodium (Chloride) 250 mls @ 250 mls/hr IVPB DAILY [facility] Last Admin: 11/18/16 08:31 Dose: 250 mls/hr Methylprednisolone 30 mg/ (Sodium Chloride) 50 mls @ 100 mls/hr IVPB Q12@0500, 1700 [facility] Last Admin: 11/18/16 04:58 Dose: 100 mls/hr Levalbuterol HCl (Xopenex) 0.63 mg IH RQ4 PRN PRN Reason: Cough and congestion Last Admin: 11/18/16 02:28 Dose: 0.63 mg Megestrol Acetate (Megace) 400 mg PEG DAILY [facility] Last Admin: 11/18/16 08:32 Dose: 400 mg Metoclopramide HCl (Reglan) 10 mg PEG HS [facility] Last Admin: 11/17/16 22:25 Dose: 10 mg Metoprolol Tartrate (Lopressor) 12.5 mg PO Q12 [facility] Last Admin: 11/18/16 08:28 Dose: 12.5 mg Ondansetron HCl (Zofran Odt) 4 mg PEG Q8 PRN PRN Reason: Nausea/Vomiting Last Admin: 11/18/16 08:31 Dose: 4 mg Pantoprazole Sodium (Protonix Susp) 40 mg PEG DAILY [facility] Last Admin: 11/18/16 08:30 Dose: 40 mg Potassium Chloride (K-Dur 20 Meq Er Tab) 40 meq PO ONCE ONE Stop: 11/18/16 10:31 Fluticasone/Salmeterol (Advair Diskus 250/50) 1 puff INH Q12 [facility] Last Admin: 11/18/16 08:29 Dose: 1 puff Sucralfate (Carafate Oral Susp) 1 gm PEG TID [facility] Last Admin: 11/18/16 08:29 Dose: 1 gm Tiotropium [place] (Spiriva) 18 mcg IH DAILY [facility] Last Admin: 11/18/16 08:29 Dose: 18 mcg Tramadol HCl (Ultram) 50 mg PO Q6 PRN PRN Reason: Pain, moderate (4-7) Last Admin: 11/18/16 08:56 Dose: 50 mg - Labs Labs: 11/18/16 06:30 11/18/16 06:30 - Respiratory Exam Respiratory Exam: Rales - Cardiovascular Exam Cardiovascular Exam: REGULAR RHYTHM, +S1, +S2 - Extremities Exam Extremities Exam: Normal Inspection - Additional Findings Additional findings: K+ 2.9 YESTERDAY K+ 3.5 TODAY Assessment and Plan - Assessment and Plan (Free Text) Assessment: CAD S/P ATRIAL FIBRILLATION HYPOKALEMIA-CORRECTED PNEUMONIA-TREATED COPD Plan: CONTINUE KCL, ASPIRIN, AMIODARONE, METOPROLOL CHANGE FUROSEMIDE FROM IV TO ORAL
--- NOTE | 2016-11-18 11:11 | CP.PCM.CON ---
History of Present Illness - History of Present Illness History of Present Illness: This patient who is 71 years of age known to me from previous admission multiple time With acute renal failure hyperkalemia however he was admitted to intensive care unit with a note from the director software quality assurance as [email or web address] , well known to myself and ICU team for multiple admissions, essentially monthly since Jun 2016 for resp failure / insufficiency, and extensive cardiac history with severe cardiomyopathy, AL, CAD, CABG, VT, resusc from cardiac arrest, multiple episodes of pneumonia, COPD; and aain overnight fro recurrent resp failure and pneumonitis, on BiPAP 12/, 405 with avg TV 450ml. SPO2 100%. Afebrile, no fever spikes, no hypotension, no tachyarrhythmias, BP 150/70, HR 86 in sinus rhythm. Urine output overnight 500ml after IV Lasix. He does not require a Polanco. He is sleeping, but arousable to verbal commands, answers simple questions. I was called to see him for further evaluation regarding his kidney Review of Systems - Constitutional Constitutional: Fatigue - EENT Nose/Mouth/Throat: As Per HPI - Cardiovascular Cardiovascular: absent: Chest Pain, Dyspnea - Gastrointestinal Gastrointestinal: absent: Abdominal Pain - Genitourinary Genitourinary: Nocturia - Musculoskeletal Musculoskeletal: Muscle Weakness - Psychiatric Psychiatric: As Per HPI Past Patient History - Infectious Disease Hx of Infectious Diseases: None - Tetanus Immunizations Tetanus Immunization: Unknown - Past Medical History & Family History Past Medical History?: Yes - Past Social History Smoking Status: Former Smoker Chewing Tobacco Use: No Cigar Use: No Alcohol: None Drugs: Denies Home Situation {Lives}: Other (Subacute rehabilitation) - CARDIAC Hx Congestive Heart Failure: Yes Hx Hypercholesterolemia: Yes Hx Hypertension: Yes - PULMONARY Hx Chronic Obstructive Pulmonary Disease (COPD): Yes - NEUROLOGICAL Hx Neurological Disorder: No - HEENT Hx Cataracts: Yes (right eye) - RENAL Hx Chronic Kidney Disease: No - ENDOCRINE/METABOLIC Hx Diabetes Mellitus Type 2: Yes - HEMATOLOGICAL/ONCOLOGICAL Hx Anemia: Yes Hx Human Immunodeficiency Virus (HIV): No - INTEGUMENTARY Hx Psoriasis: Yes - MUSCULOSKELETAL/RHEUMATOLOGICAL Hx Arthritis: Yes - GASTROINTESTINAL Hx Diverticulitis: Yes Hx Ulcer: Yes Other/Comment: PEG tube - GENITOURINARY/GYNECOLOGICAL Hx Prostate Problems: Yes (BPH) - PSYCHIATRIC Hx Psychophysiologic Disorder: No Hx Substance Use: No - SURGICAL HISTORY Hx Coronary Artery Bypass Graft: Yes (1994) Hx Coronary Stent: Yes (2000) Other/Comment: Subtotal gastrectomy. Multiple ventral hernia repairs. - ANESTHESIA Hx Anesthesia: Yes Hx Anesthesia Reactions: No Hx Malignant Hyperthermia: No Meds Allergies/Adverse Reactions: Allergies Allergy/AdvReac Type Severity Reaction Status Date / Time gemfibrozil [From Lopid] Allergy RASH Verified 10/12/16 14:03 morphine Allergy SHORTNESS Verified 10/12/16 14:03 OF BREATH - Medications Medications: Current Medications Acetaminophen (Tylenol 325mg Tab) 650 mg PO Q4H PRN PRN Reason: Fever >100.4 F Acetylcysteine (Mucomyst 10% 4ml) 2 ml IH RBID [facility] Last Admin: 11/17/16 19:25 Dose: Not Given Amiodarone HCl (Cordarone) 200 mg PO DAILY [facility] Last Admin: 11/18/16 08:30 Dose: 200 mg Aspirin (Aspirin Chewable) 81 mg PEG DAILY [facility] Last Admin: 11/18/16 08:29 Dose: 81 mg Dimethicone (Proshield Plus Skin Protectant) 1 applic TOP QSHIFT [facility] Last Admin: 11/14/16 08:26 Dose: 1 applic Ferrous Sulfate (Feosol Liq) 450 mg PEG DAILY [facility] Last Admin: 11/18/16 08:32 Dose: 450 mg Fludrocortisone Acetate (Florinef) 0.1 mg PO DAILY [facility] Last Admin: 11/18/16 08:29 Dose: 0.1 mg Furosemide (Lasix) 20 mg PO DAILY [facility] Gabapentin (Neurontin) 400 mg PEG HS [facility] Last Admin: 11/17/16 22:20 Dose: 400 mg Gabapentin (Neurontin) 400 mg PEG BID [facility] Last Admin: 11/18/16 08:28 Dose: 400 mg Guaifenesin (Mucinex La) 600 mg PO BID [facility] Last Admin: 11/18/16 08:29 Dose: 600 mg Piperacillin Sod/Tazobactam (Sod 3.375 gm/ Sodium Chloride) 100 mls @ 100 mls/ hr IVPB Q6 [facility] Last Admin: 11/18/16 03:15 Dose: 100 mls/hr Azithromycin 500 mg/ Sodium (Chloride) 250 mls @ 250 mls/hr IVPB DAILY [facility] Last Admin: 11/18/16 08:31 Dose: 250 mls/hr Methylprednisolone 30 mg/ (Sodium Chloride) 50 mls @ 100 mls/hr IVPB Q12@0500, 1700 [facility] Last Admin: 11/18/16 04:58 Dose: 100 mls/hr Levalbuterol HCl (Xopenex) 0.63 mg IH RQ4 PRN PRN Reason: Cough and congestion Last Admin: 11/18/16 02:28 Dose: 0.63 mg Megestrol Acetate (Megace) 400 mg PEG DAILY [facility] Last Admin: 11/18/16 08:32 Dose: 400 mg Metoclopramide HCl (Reglan) 10 mg PEG HS [facility] Last Admin: 11/17/16 22:25 Dose: 10 mg Metoprolol Tartrate (Lopressor) 12.5 mg PO Q12 [facility] Last Admin: 11/18/16 08:28 Dose: 12.5 mg Ondansetron HCl (Zofran Odt) 4 mg PEG Q8 PRN PRN Reason: Nausea/Vomiting Last Admin: 11/18/16 08:31 Dose: 4 mg Pantoprazole Sodium (Protonix Susp) 40 mg PEG DAILY [facility] Last Admin: 11/18/16 08:30 Dose: 40 mg Fluticasone/Salmeterol (Advair Diskus 250/50) 1 puff INH Q12 [facility] Last Admin: 11/18/16 08:29 Dose: 1 puff Sucralfate (Carafate Oral Susp) 1 gm PEG TID [facility] Last Admin: 11/18/16 08:29 Dose: 1 gm Tiotropium [place] (Spiriva) 18 mcg IH DAILY [facility] Last Admin: 11/18/16 08:29 Dose: 18 mcg Tramadol HCl (Ultram) 50 mg PO Q6 PRN PRN Reason: Pain, moderate (4-7) Last Admin: 11/18/16 08:56 Dose: 50 mg Physical Exam - Constitutional Appears: No Acute Distress - ENT Exam ENT Exam: Mucous Membranes Moist - Respiratory Exam Respiratory Exam: NORMAL BREATHING PATTERN. absent: Chest Wall Tenderness - Cardiovascular Exam Cardiovascular Exam: absent: JVD, Rubs - GI/Abdominal Exam GI & Abdominal Exam: Normal Bowel Sounds - Extremities Exam Extremities exam: Negative for: calf tenderness - Back Exam Back exam: absent: CVA tenderness (L), CVA tenderness (R) Results - Vital Signs Recent Vital Signs: Last Vital Signs Temp 98.2 F 11/18/16 08:29 Pulse 95 H 11/18/16 08:30 Resp 20 11/18/16 08:29 BP 173/85 H 11/18/16 08:33 Pulse Ox 95 11/18/16 08:29 - Labs Result Diagrams: 11/18/16 06:30 11/18/16 06:30 Labs: Laboratory Results - last 24 hr 11/17/16 11/17/16 11/17/16 11:50 11:50 18:47 WBC 14.4 H D RBC 3.03 L Hgb 8.7 L Hct 27.2 L MCV 89.6 D MCH 28.6 MCHC 31.9 L RDW 16.3 H Plt Count 251 Sodium 142 140 Potassium 2.9 L 3.4 L Chloride 101 103 Carbon Dioxide 28 27 Anion Gap 16 13 BUN 35 H 36 H Creatinine 1.2 1.1 Est GFR ( Amer) > 60 > 60 Est GFR (Non-Af Amer) 60 > 60 Random Glucose 308 H 128 H Calcium 8.4 8.3 L Total Bilirubin AST ALT Alkaline Phosphatase Total Protein Albumin Globulin Albumin/Globulin Ratio Thyroxine (T4) TSH 3rd Generation 11/18/16 11/18/16 06:30 06:30 WBC 12.9 H RBC 2.91 L Hgb 8.2 L Hct 26.0 L MCV 89.3 MCH 28.3 MCHC 31.7 L RDW 15.7 H Plt Count 224 Sodium 142 Potassium 3.5 L Chloride 103 Carbon Dioxide 29 Anion Gap 14 BUN 34 H Creatinine 1.2 Est GFR ( Amer) > 60 Est GFR (Non-Af Amer) 60 Random Glucose 148 H Calcium 8.7 Total Bilirubin 0.3 AST 21 ALT 34 Alkaline Phosphatase 74 Total Protein 5.5 L Albumin 2.5 L Globulin 3.0 Albumin/Globulin Ratio 0.8 L Thyroxine (T4) 5.14 L TSH 3rd Generation 0.22 L Assessment & Plan (1) Hypokalemia Assessment and Plan: Patient previously has acute kidney injury is recovering for the most part and he has hypokalemia now and he was given replacement was potassium chloride and doing much better Patient had the problem with hyperkalemia previously to keep it in mind not to give Kayexalate if he has been taking that at the assisted and to monitor electrolyte and kidney function Status: Acute (2) Moderate COPD (chronic obstructive pulmonary disease) Status: Acute (3) Pneumonia Status: Acute Priority: High
[2016-11-18] MEDS: Acetylcysteine 10% 4 ML IH SCH (11:17)
[2016-11-18 12:43] VITALS: BP 133/71; PULSE 81; TEMP 98.3; O2SAT 97
--- NOTE | 2016-11-18 13:51 | CP.PCM.PCO ---
Assessment/Plan - Assessment/Plan Assessment (Free Text): Pt stable, seen and cleared for d/c back to [facility] by all consultants. Per Dr. Stephens, pt to continue ton Avelox PO and Prednisone taper to start with 30mg daily. Labs reviewed and discussed with angela Whitley to transfer pt back to [facility], he will follow. - Problems Patient Problems: Problem List (Active/Current) Problem Status Onset Code Hypokalemia Acute E87.6 Pneumonia Acute J18.9
--- NOTE | 2016-11-18 16:06 | PN ---
DATE: 11/18/2016 ROOM: 656 This is a 71-year-old male with recent acute exacerbation of COPD and currently on IV steroid therapy given as Solu-Medrol at 30 mg every 12 hours as noted and given and is now being followed closely fo r metabolic management because of persistent hypokalemia as noted thereof. The latest chemistries sh owed a BUN of 34, sodium 142, potassium 3.5, chloride 103, CO2 of 29, glucose 148 and creatinine 1.2. The thyroid levels showed a T4 of 5.14 with a TSH of 0.22, related to the intercurrent IV steroid t herapy with transition TSH suppression as noted thereof with a superimposed acute sick euthyroid synd wendy as expected from the intercurrent physical stressors as noted. He remains clinically euthyroid at this time. The hormonal profile with the serum cortisol and ACTH and also the plasma rennin and p lasma aldosterone levels have been sent out and are pending at this time. Would recommend eventual d ischarge today, clinically and hemodynamically stable at this time. We have discussed with the nurse practitioner, we will discontinue all the Florinef medications, which can contribute to hypokalemia as noted thereof. We will follow. Anabella Sebastian MD cc: [phone] TT: 11/18/2016 16:05:36 Confirmation # [id number] Dictation # [id number]
[2016-11-18 16:56] LABS: CORTISOL AM 4.8 ug/dL (4.46-22.7)
--- NOTE | 2016-11-18 19:20 | CP.PCM.PN ---
Subjective - Date & Time of Evaluation Date of Evaluation: 11/18/16 Time of Evaluation: 22:22 - Subjective Subjective: Endo and Nephrology notes appreciated Objective - Vital Signs/Intake and Output Vital Signs (last 24 hours): Temp Pulse Resp BP Pulse Ox 98.3 F 81 20 133/71 97 11/18/16 12:42 11/18/16 12:42 11/18/16 08:29 11/18/16 12:42 11/18/16 12:42 - Labs Labs: 11/18/16 06:30 11/18/16 06:30 - Respiratory Exam Respiratory Exam: NORMAL BREATHING PATTERN - Cardiovascular Exam Cardiovascular Exam: REGULAR RHYTHM - GI/Abdominal Exam GI & Abdominal Exam: Normal Bowel Sounds Assessment and Plan - Assessment and Plan (Free Text) Assessment: Hypokalemia- etiol? HX Hyperkalemia etiol ?? s/p SMITA/ CKD Adrenal insufficiency?? Cortisol level ?? S/P Acute Respiratory Distress Aspiration?? HX COPD S/P Klebsiella RLL Pneumonia? S/P L pneumothorax ABX IVF Steroids Pulmonary Hx Dec oral intake improved on Megace swallowing?? aspiration?? PEG Jevity and oral feedings GI consult Repeat swallowing evaluation Hx s/p + C-diff + Ag -toxin Hx of Orthostatic Hypotension at NH S/P V-fib/ V-tach 2 to pulmonary dx A-fib CAD S/P CABG Amiodorone ?? memef Cardiology Chronic chest wall pain Pain meds
== END 2016-11-18 15:30 | DRG 177 ==
LOC: H.ER 23:44 → H.ERHOLD 11-14 02:26 → H.ICU/CCU 11-14 04:38 → H.MEDSURG1 11-14 14:01
PROVIDERS: ADMIT Family Medicine Geriatric Medicine; ATTEND Family Medicine Geriatric Medicine
PROC: 3E0G76Z Introduction of Nutritional Substance into Upper GI, Via Natural or Artificial Opening (ICD-10-PCS; principal; 2016-11-14)
DX: J69.0 Pneumonitis due to inhalation of food and vomit (principal); J96.00 Acute respiratory failure, unspecified whether with hypoxia or hypercapnia; N17.9 Acute kidney failure, unspecified; L89.154 Pressure ulcer of sacral region, stage 4; I50.23 Acute on chronic systolic (congestive) heart failure; E46 Unspecified protein-calorie malnutrition; I42.9 Cardiomyopathy, unspecified; I13.0 Hypertensive heart and chronic kidney disease with heart failure and stage 1 through stage 4 chronic kidney disease, or unspecified chronic kidney disease; R13.10 Dysphagia, unspecified; E11.22 Type 2 diabetes mellitus with diabetic chronic kidney disease; J44.0 Chronic obstructive pulmonary disease with (acute) lower respiratory infection; J44.1 Chronic obstructive pulmonary disease with (acute) exacerbation; E86.0 Dehydration; I48.0 Paroxysmal atrial fibrillation; I48.2 Chronic atrial fibrillation; Z93.1 Gastrostomy status; E78.5 Hyperlipidemia, unspecified; E87.6 Hypokalemia; I25.2 Old myocardial infarction; I25.10 Atherosclerotic heart disease of native coronary artery without angina pectoris; N18.9 Chronic kidney disease, unspecified; E78.00 Pure hypercholesterolemia, unspecified; N40.0 Benign prostatic hyperplasia without lower urinary tract symptoms; J45.909 Unspecified asthma, uncomplicated; Z95.5 Presence of coronary angioplasty implant and graft; Z95.1 Presence of aortocoronary bypass graft; D63.8 Anemia in other chronic diseases classified elsewhere; G89.29 Other chronic pain; R07.89 Other chest pain; Z87.891 Personal history of nicotine dependence

== ENCOUNTER 2016-11-22 07:24 | Inpatient (IN) | payer MEDICARE ==
[2016-11-22 07:24] VITALS: PULSE 75
[2016-11-22 07:32] VITALS: BMI 24.3
[2016-11-22] MEDS ORDERED: Piperacillin/Tazobact 3.375 GM in Sodium Chloride 0.9% 100 ML IVPB STA (07:41)
[2016-11-22] MEDS ORDERED: Albuterol-Ipratrop 3 mg / 0.5 (3 ml) UD INH STA ×2 (08:04→08:21)
[2016-11-22] MEDS ORDERED: Sodium Chloride 0.9% 1,000 ML IV ONE (08:04)
[2016-11-22] MEDS ORDERED: Albuterol-Ipratrop 3 mg / 0.5 (3 ml) UD ONE (08:06)
[2016-11-22] MEDS ORDERED: Vancomycin 1 g Inj ONE (08:06)
[2016-11-22] MEDS ORDERED: methylPREDNISolone 125 MG in Sodium Chloride 0.9% 50 ML IVPB STA (08:08)
--- NOTE | 2016-11-22 08:08 | RAD ---
HISTORY: Sepsis Patient COMPARISON: 11/14/2016 chest x-ray, 11/15/2016 CT scan FINDINGS: LUNGS: There is mild interval improvement in aeration at the lung bases although persistent diffuse interstitial changes remain. Mild amount of superimposed congestion is not excluded. PLEURA: Small effusions. No pneumothorax CARDIOVASCULAR: Heart is unchanged in size. Possible mild superimposed congestion. OSSEOUS STRUCTURES: No significant abnormalities. VISUALIZED UPPER ABDOMEN: Normal. OTHER FINDINGS: None. IMPRESSION: Possible minor improvement in aeration. Diffuse interstitial changes with possible mild superimposed congestion. Small effusions.
--- NOTE | 2016-11-22 08:12 | ED PDOC ---
HPI: SOB/CHF/COPD Time Seen by Provider: 11/22/16 07:37 Chief Complaint (Nursing): Shortness Of Breath History Per: EMS History/Exam Limitations: clinical condition Onset/Duration Of Symptoms: Gradual (yesterday) Current Symptoms Are (Timing): Still Present Current Respiratory Medications: None Severity: Moderate Associated Symptoms: Fever, Productive Cough. denies: Heart Racing, Leg/Calf Pain, Light-headedness Recently: Treated By A Physician (d/c early this week) Additional History Per: Patient, Prior Records Additional Complaint(s): t sent from assisted for shortness of breath, cough, fever and congestion. Crackles heard on auscultation. d/c from the hospital for pna on 11/19/2016 similar sx in the past per pmd for pna and copd. Past Medical History Reviewed: Historical Data, Nursing Documentation, Vital Signs Vital Signs: Last Vital Signs Temp 99.4 F 11/22/16 09:26 Pulse 105 H 11/22/16 08:05 Resp 24 11/22/16 08:05 BP 136/79 11/22/16 08:05 Pulse Ox 92 L 11/22/16 08:23 - Medical History PMH: Anemia, Anxiety, Arthritis, Asthma, Atrial Fibrillation, Benign Prostatic Hyperplasia, Bronchitis, CAD, Cardia Arrhythmia, CHF, COPD, Diabetes (type II), Diverticulitis, Emphysema, HTN, Hypercholesterolemia, Peripheral Edema, Pneumonia Denies: HIV, Hypothyroidism, Chronic Kidney Disease, Rheumatoid Arthritis - Surgical History Surgical History: CABG (1994), Coronary Stent (2000), Hernia Repair () - Family History Family History: States: Unknown Family Hx - Living Arrangements Living Arrangements: Residential/[facility] - Immunization History Hx Tetanus Toxoid Vaccination: No Hx Influenza Vaccination: No Hx Pneumococcal Vaccination: No - Home Medications Home Medications: Ambulatory Orders Medication Instructions Recorded Fluticasone Propionate [Flonase] 2 spr JAKUB DAILY PRN #0 bottle 03/03/16 Tiotropium [Spiriva] 18 mcg IH DAILY #0 cap 03/03/16 Amiodarone [Cordarone] 200 mg PO DAILY tab 09/05/16 Ipratropium 0.02% [Atrovent] 0.5 mg IH QID #90 neb 09/05/16 Levalbuterol HCl [Xopenex] 0.63 mg IH QID #90 vial.neb 02/17/17 Metoprolol Tartrate [Lopressor] 12.5 mg PO Q12 tab 09/05/16 traMADol [Ultram] 50 mg GT Q6 PRN #0 tab 09/05/16 Acetaminophen [Tylenol 325mg tab] 650 mg PO Q4H PRN 09/12/16 Montelukast [Singulair] 10 mg PEG HS 09/12/16 Amino Acid/Protein/Vit C/Zinc 30 ml PEG TID 11/14/16 [Prosource Billy Protein Liquid] Aspirin [Aspirin Chewable] 81 mg PEG DAILY 11/14/16 Collagenase [Santyl] 1 appl TOP QSHIFT 11/14/16 Dimethicone [Proshield Plus Skin 1 appl TOP QSHIFT 11/14/16 Protectant] Ferrous Sulfate [Feosol Liq] 7.5 ml PEG DAILY 11/14/16 Fluticasone/Salmeterol 250/50 1 puff INH Q12 11/14/16 [Advair Diskus 250/50] Gabapentin [Neurontin] 400 mg PEG BID 11/14/16 Gabapentin [Neurontin] 400 mg PEG HS 11/14/16 Guaifenesin [Mucinex] 600 mg PEG BID 11/14/16 Megestrol [Megace] 10 ml PEG DAILY 11/14/16 Metoclopramide [Reglan] 10 mg PEG HS 11/14/16 Ondansetron ODT [Zofran ODT] 4 mg PEG Q8 11/14/16 Pantoprazole [Protonix Susp] 40 mg PEG DAILY 11/14/16 Silver Sulfadiazine 1% [Silvadene 1 appl TOP QSHIFT 11/14/16 1%] Sucralfate [Carafate Oral Susp] 1 dose PEG TID 11/14/16 Moxifloxacin [Avelox] 400 mg PO DAILY #7 tab 11/18/16 predniSONE [predniSONE Tab] 30 mg PO DAILY #10 tab 11/18/16 - Allergies Allergies/Adverse Reactions: Allergies Allergy/AdvReac Type Severity Reaction Status Date / Time gemfibrozil [From Lopid] Allergy RASH Verified 11/22/16 07:55 morphine Allergy SHORTNESS Verified 11/22/16 07:55 OF BREATH Review of Systems Review Of Systems: ROS cannot be obtained secondary to pt's inabilty to answer questions. Constitutional: Positive for: Fever, Chills Respiratory: Positive for: Cough, Shortness of Breath Gastrointestinal: Negative for: Vomiting, Diarrhea Physical Exam - Reviewed Nursing Documentation Reviewed: Yes Vital Signs Reviewed: Yes - Physical Exam Appears: Positive for: In Acute Distress (mild) Head Exam: Positive for: ATRAUMATIC, NORMAL INSPECTION, NORMOCEPHALIC Eye Exam: Positive for: Normal appearance, EOMI, PERRL Neck: Positive for: Normal, Painless ROM, Supple Cardiovascular/Chest: Positive for: Chest Non Tender, Tachycardia. Negative for : Edema, Murmur, Bradycardia Respiratory: Positive for: Accessory Muscle Use (mild), Crackles, Wheezing (mod) , Respiratory Distress (mild) Pulses-Radial (L): 2+ Pulses-Radial (R): 2+ Gastrointestinal/Abdominal: Positive for: Bowel Sounds, Soft, Other (peg tube site c/d/i). Negative for: Tenderness Back: Positive for: Normal Inspection. Negative for: L CVA Tenderness, R CVA Tenderness Extremity: Positive for: Normal ROM. 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 Negative for: Motor/Sensory Deficits - Laboratory Results Result Diagrams: 11/22/16 08:00 11/22/16 08:00 - ECG ECG: Positive for: Interpreted By Me ECG Rhythm: Positive for: Normal QRS, Normal ST Segment, Sinus Tachycardia Interpretation Of Abn EKG: sinus tach abnml ecg w/o change compared to 11/14/2016 O2 Sat by Pulse Oximetry: 92 Pulse Ox Interpretation: Abnormal Interpretation Of Abnormal: hypoxia will place on nc and start duoneb - Radiology X-Ray: Interpreted by Me X-Ray Interpretation: Infiltrates (bl interstitial infiltrates nml cardiac border s/p cabg) - Progress ED Course And Treament: per dr chau and jevon will admit to tele Re-evaluation Time: 11:03 Condition: Improved Disposition - Clinical Impression Clinical Impression: COPD (chronic obstructive pulmonary disease) with acute bronchitis - Patient ED Disposition Is Patient to be Admitted: Yes Counseled Patient/Family Regarding: Studies Performed, Diagnosis - Disposition Disposition Time: 09:00 Condition: STABLE - Pt Status Changed To: Hospital Disposition Of: Inpatient - Admit Certification Admit to Inpatient:: After my assessment, the patient will require hospitalization for at least two midnights. This is because of the severity of symptoms shown, intensity of services needed, and/or the medical risk in this patient being treated as an outpatient. - POA Present On Arrival: None
[2016-11-22 08:13] LABS: BASO # 0.1 K/uL (0.0-0.2); BASO % 0.5 % (0.0-2.0); EOS % 0.1 % (0.0-4.0); HEMATOCRIT 27.4 % (35.0-51.0); LYMPH # 0.7 K/uL (1.0-4.3); MEAN CELL VOLUME 90.4 fl (80.0-94.0); MEAN CORPUSCULAR HEMOGLOBIN 29.3 pg (27.0-31.0); MEAN CORPUSCULAR HGB CONC 32.3 g/dL (33.0-37.0); MEAN PLATELET VOLUME 8.8 fl (7.2-11.7); MONO # 0.7 K/uL (0.0-0.8); MONO % 3.1 % (0.0-10.0); NEUT # 21.8 K/uL (1.8-7.0); NEUT % 93.3 % (50.0-75.0); PLATELET COUNT 280 K/uL (130-400); RED CELL DISTRIBUTION WIDTH 16.7 % (11.5-14.5); WHITE BLOOD COUNT 23.4 K/uL (4.8-10.8)
[2016-11-22 08:13] LABS: VENOUS BLOOD GAS BASE EXCESS 3.2 mmol/L (0.0-2.0); VENOUS BLOOD GAS PCO2 52 mmHg (40-60); VENOUS BLOOD PH 7.36 (7.32-7.43)
[2016-11-22 08:30] LABS: ALB/GLOB RATIO 0.9 (1.0-2.1); ALKALINE PHOSPHATASE 88 U/L (38-126); ALT/SGPT 42 U/L (21-72); AST/SGOT 28 U/L (17-59); BILIRUBIN,TOTAL 0.5 mg/dl (0.2-1.3); BLOOD UREA NITROGEN 39 mg/dl (9-20); CALCIUM 8.9 mg/dL (8.4-10.2); CARBON DIOXIDE 27 mmol/L (22-30); CHLORIDE 105 mmol/L (98-107); GFR AFRICAN-AMERICAN > 60; GLUCOSE,RANDOM 111 mg/dL (75-110); PHOSPHOROUS 4.6 mg/dl (2.5-4.5); POTASSIUM 4.7 MMOL/L (3.6-5.0); SODIUM 142 mmol/l (132-148)
[2016-11-22 09:04] LABS: RBC URINE 1 /hpf (0-3); URINE BILIRUBIN NEGATIVE (NEGATIVE); URINE BLOOD NEGATIVE (NEGATIVE); URINE COLOR YELLOW (YELLOW); URINE GLUCOSE (UA) NEG (Normal); URINE KETONE NEGATIVE (NEGATIVE); URINE LEUKOCYTE ESTERASE NEG Leu/uL (Negative); URINE PROTEIN 100 mg/dL (NEGATIVE); URINE UROBILINOGEN 0.2-1.0 mg/dL (0.2-1.0); WBC URINE 1 /hpf (0-5)
[2016-11-22 09:15] LABS: PARTIAL THROMBOPLASTIN TIME 26.7 SECONDS (23.3-32.5)
[2016-11-22] MEDS ORDERED: Piperacillin/Tazobact 3.375 gm Inj IVPB ONE (09:45)
[2016-11-22 09:48] LABS: EOSINOPHIL 1 % (0-7); NEUTROPHIL 93 % (42-75); REACTIVE LYMPHOCYTES 1 % (0-0); TOTAL CELLS COUNTED 100
[2016-11-22 09:51] LABS: LARGE PLATELETS PRESENT
[2016-11-22 10:41] LABS: ERYTHROCYTE SEDIMENTATION RATE 96 mm/hr (0-20)
[2016-11-22] MEDS ORDERED: Silver Sulfadiazine 1% CREAM (50 gm) TOP SCH (13:15)
[2016-11-22] MEDS ORDERED: Santyl Collagenase OINTMENT TOP SCH (13:15)
[2016-11-22] MEDS ORDERED: Proshield Plus GEL TOP SCH (13:15)
[2016-11-22] MEDS: Albuterol-Ipratrop 3 mg / 0.5 (3 ml) UD INH PRN (13:31)
[2016-11-22] MEDS ORDERED: Chlorhexidine Gluconate 1 APPL/PKT TP ONE (13:43)
[2016-11-22] MEDS: Dextrose 5%/0.45% NS 1,000 ML IV SCH (14:00)
[2016-11-22] MEDS ORDERED: Albuterol 0.083% Inhal Sol (2.5 mg/3 mL) UD ONE (14:12)
[2016-11-22] MEDS ORDERED: Sodium Chloride 3% for Inhalation 4 ML VIAL.NEB IH PRN (14:18)
[2016-11-22] MEDS: Albuterol 0.083% Inhal Sol (2.5 mg/3 mL) UD INH PRN (14:25)
[2016-11-22] MEDS: Ferrous Sulfate 300 mg/5 mL Liq UD PEG SCH (15:38)
[2016-11-22] MEDS: Pantoprazole 40 mg Susp UD PEG SCH (15:39)
[2016-11-22] MEDS: Megestrol Acetate 40 mg/ml Cup PEG SCH (15:39)
[2016-11-22] MEDS: Albuterol-Ipratrop 3 mg / 0.5 (3 ml) UD INH SCH ×2 (16:14→19:59)
[2016-11-22] MEDS: Sucralfate 1 gm/10 ml Oral Susp UD PEG SCH (16:29)
[2016-11-22] MEDS ORDERED: Acetaminophen 650mg/20.3ml solution UD PO PRN (16:38)
[2016-11-22] MEDS: guaiFENesin 200 mg/10 ml Syrup UD PEG SCH ×2 (16:52→21:54)
[2016-11-22] MEDS ORDERED: guaiFENesin 600 mg ER Tab PO SCH (17:00)
[2016-11-22] MEDS ORDERED: VIT C PEG SCH (17:00)
[2016-11-22] MEDS ORDERED: ZINC PEG SCH (17:00)
[2016-11-22] MEDS ORDERED: AMINO ACID PEG SCH (17:00)
[2016-11-22] MEDS ORDERED: PROTEIN PEG SCH (17:00)
[2016-11-22] MEDS: Acetylcysteine 10% 4 ML IH SCH (20:00)
--- NOTE | 2016-11-22 20:24 | CP.PCM.HP ---
History of Present Illness - History of Present Illness History of Present Illness: 71 yo with hx of COPD recurrent aspiration pneumonia admited for SOB and productive yellowish secretions Present on Admission - Present on Admission Any Indicators Present on Admission: No Past Patient History - Infectious Disease Hx of Infectious Diseases: None - Tetanus Immunizations Tetanus Immunization: Unknown - Past Medical History & Family History Past Medical History?: Yes - Past Social History Smoking Status: Former Smoker - CARDIAC Hx Atrial Fibrillation: Yes Hx Cardia Arrhythmia: Yes Hx Congestive Heart Failure: Yes Hx Hypercholesterolemia: Yes Hx Hypertension: Yes Hx Peripheral Edema: Yes - PULMONARY Hx Asthma: Yes Hx Bronchitis: Yes Hx Chronic Obstructive Pulmonary Disease (COPD): Yes Hx Emphysema: Yes Hx Pneumonia: Yes - NEUROLOGICAL Hx Neurological Disorder: No - HEENT Hx Cataracts: Yes (right eye) - RENAL Hx Chronic Kidney Disease: No - ENDOCRINE/METABOLIC Hx Hypothyroidism: No - HEMATOLOGICAL/ONCOLOGICAL Hx Anemia: Yes Hx Human Immunodeficiency Virus (HIV): No - INTEGUMENTARY Hx Psoriasis: Yes - MUSCULOSKELETAL/RHEUMATOLOGICAL Hx Arthritis: Yes Hx Rheumatoid Arthritis: No - GASTROINTESTINAL Hx Diverticulitis: Yes - GENITOURINARY/GYNECOLOGICAL Hx Prostate Problems: Yes (BPH) - PSYCHIATRIC Hx Anxiety: Yes - SURGICAL HISTORY Hx Coronary Artery Bypass Graft: Yes (1994) Hx Coronary Stent: Yes (2000) - ANESTHESIA Hx Anesthesia: Yes Hx Anesthesia Reactions: No Hx Malignant Hyperthermia: No Has any member of the family had a problem w/ anesthesia?: No Meds Allergies/Adverse Reactions: Allergies Allergy/AdvReac Type Severity Reaction Status Date / Time gemfibrozil [From Lopid] Allergy RASH Verified 11/22/16 07:55 morphine Allergy SHORTNESS Verified 11/22/16 07:55 OF BREATH Physical Exam - Respiratory Exam Respiratory Exam: NORMAL BREATHING PATTERN - Cardiovascular Exam Cardiovascular Exam: REGULAR RHYTHM - GI/Abdominal Exam GI & Abdominal Exam: Normal Bowel Sounds Results - Vital Signs Recent Vital Signs: Last Vital Signs Temp 97.4 F L 11/22/16 19:17 Pulse 91 H 11/22/16 19:17 Resp 18 11/22/16 19:17 BP 144/81 11/22/16 19:17 Pulse Ox 96 11/22/16 19:17 - Labs Result Diagrams: 11/22/16 08:00 11/22/16 08:00 Labs: Laboratory Results - last 24 hr 11/22/16 11/22/16 11/22/16 09:40 12:11 15:50 POC Glucose (mg/dL) 120 H 274 H Influenza Typ A,B (EIA) Negative for flu a/b Assessment & Plan - Assessment and Plan (Free Text) Assessment: Acute Respiratory Distress Aspiration?? HX COPD S/P Klebsiella RLL Pneumonia? S/P L pneumothorax ABX IVF Steroids ?? Pulmonary Hx Dec oral intake improved on Megace swallowing?? aspiration?? PEG Jevity and oral feedings GI consult Repeat swallowing evaluation ??? Hx s/p + C-diff + Ag -toxin S/P V-fib/ V-tach 2 to pulmonary dx A-fib CAD S/P CABG Amiodorone Cardiology Chronic chest wall pain Pain meds HX Hyperkalemia and hypokalemia etiol ?? s/p SMITA/ CKD Adrenal insufficiency?? Hx of Orthostatic Hypotension at NH ACTH Cortisol level ?? Eamon d/eloina F - Date & Time Date: 11/22/16 Time: 22:22
[2016-11-22] MEDS ORDERED: Fluticasone-Salmeterol 250-50mcg Diskus INH SCH (21:00)
[2016-11-23] MEDS: Albuterol 0.083% Inhal Sol (2.5 mg/3 mL) UD INH PRN (03:48)
--- NOTE | 2016-11-23 06:18 | CARD ---
APPROVED REPORT EKG Measurement Heart [id number] <Conclusion> Sinus tachycardia with occasional ventricular-paced complexes Moderate voltage criteria for LVH, may be normal variant Nonspecific ST and T wave abnormality Abnormal ECG
[2016-11-23 06:59] LABS: BASO % 0.1 % (0.0-2.0); HEMATOCRIT 25.8 % (35.0-51.0); LYMPH # 0.2 K/uL (1.0-4.3); LYMPH % 1.3 % (20.0-40.0); MEAN CELL VOLUME 91.6 fl (80.0-94.0); MEAN CORPUSCULAR HGB CONC 31.7 g/dL (33.0-37.0); MEAN PLATELET VOLUME 8.9 fl (7.2-11.7); MONO # 0.7 K/uL (0.0-0.8); MONO % 3.9 % (0.0-10.0); NEUT # 17.7 K/uL (1.8-7.0); NEUT % 94.7 % (50.0-75.0); PLATELET COUNT 237 K/uL (130-400); RED CELL DISTRIBUTION WIDTH 16.7 % (11.5-14.5); WHITE BLOOD COUNT 18.7 K/uL (4.8-10.8)
[2016-11-23 07:20] LABS: ALB/GLOB RATIO 0.9 (1.0-2.1); ALKALINE PHOSPHATASE 82 U/L (38-126); ALT/SGPT 36 U/L (21-72); AST/SGOT 17 U/L (17-59); BILIRUBIN,TOTAL 0.4 mg/dl (0.2-1.3); BLOOD UREA NITROGEN 38 mg/dl (9-20); CALCIUM 8.9 mg/dL (8.4-10.2); CARBON DIOXIDE 27 mmol/L (22-30); CHLORIDE 103 mmol/L (98-107); GFR AFRICAN-AMERICAN > 60; GLUCOSE,RANDOM 114 mg/dL (75-110); POTASSIUM 4.6 MMOL/L (3.6-5.0); SODIUM 140 mmol/l (132-148); TOTAL PROTEIN 5.7 G/DL (6.3-8.2)
[2016-11-23] MEDS: Acetylcysteine 10% 4 ML IH SCH ×2 (07:20→19:43)
[2016-11-23] MEDS: Albuterol-Ipratrop 3 mg / 0.5 (3 ml) UD INH SCH ×4 (07:20→19:43)
[2016-11-23 07:48] LABS: THYROID STIMULATING HORMONE 0.13 mIU/ML (0.46-4.68)
[2016-11-23] MEDS: Dextrose 5%/0.45% NS 1,000 ML IV SCH ×2 (08:31→23:55)
[2016-11-23] MEDS: Pantoprazole 40 mg Susp UD PEG SCH (08:33)
[2016-11-23] MEDS: guaiFENesin 200 mg/10 ml Syrup UD PEG SCH ×4 (08:34→22:02)
[2016-11-23] MEDS: Megestrol Acetate 40 mg/ml Cup PEG SCH (08:35)
[2016-11-23] MEDS: Ferrous Sulfate 300 mg/5 mL Liq UD PEG SCH (08:35)
[2016-11-23] MEDS: Sucralfate 1 gm/10 ml Oral Susp UD PEG SCH ×3 (08:40→16:22)
[2016-11-23 08:55] LABS: IRON 43 ug/dL (49-181)
[2016-11-23 09:01] LABS: NEUTROPHIL 97 % (42-75); TOTAL CELLS COUNTED 100
[2016-11-23 09:03] LABS: LARGE PLATELETS PRESENT
--- NOTE | 2016-11-23 12:01 | CP.PCM.CON ---
History of Present Illness - History of Present Illness History of Present Illness: THE PATIENT IS A 71 YEAR OLD MALE WITH A HISTORY OF CAD WITH OLD AWMI AND CABGS , LVEF OF 30% WITH CHF HISTORY, A/P ATRIAL FIBRILLATION AND VT, SEVERE COPD, RECURRENT PNEUMONIA AND HE WAS JUST DISCHARGED FROM [facility] 11/21/16 AFTER COPD EXACERBATION. HE NOW STATES THAT WHILE AT THE [facility] HE BECAME VERY SOB 11/21/16 PM AND HE WAS STILL SOB YESTERDAY SO HE WAS SENT TO THE ER AND ADMITTED FOR COPD EXACERBATION. CARDIOLOGY WAS CALLED TO FOLLW HIM DUE TO HIS CARDIAC HISTORY. Past Patient History - Infectious Disease Hx of Infectious Diseases: None - Tetanus Immunizations Tetanus Immunization: Unknown - Past Medical History & Family History Past Medical History?: Yes - Past Social History Smoking Status: Former Smoker - CARDIAC Hx Atrial Fibrillation: Yes Hx Cardia Arrhythmia: Yes Hx Congestive Heart Failure: Yes Hx Hypercholesterolemia: Yes Hx Hypertension: Yes Hx Peripheral Edema: Yes - PULMONARY Hx Asthma: Yes Hx Bronchitis: Yes Hx Chronic Obstructive Pulmonary Disease (COPD): Yes Hx Emphysema: Yes Hx Pneumonia: Yes - NEUROLOGICAL Hx Neurological Disorder: No - HEENT Hx Cataracts: Yes (right eye) - RENAL Hx Chronic Kidney Disease: No - ENDOCRINE/METABOLIC Hx Hypothyroidism: No - HEMATOLOGICAL/ONCOLOGICAL Hx Anemia: Yes Hx Human Immunodeficiency Virus (HIV): No - INTEGUMENTARY Hx Psoriasis: Yes - MUSCULOSKELETAL/RHEUMATOLOGICAL Hx Arthritis: Yes Hx Rheumatoid Arthritis: No - GASTROINTESTINAL Hx Diverticulitis: Yes - GENITOURINARY/GYNECOLOGICAL Hx Prostate Problems: Yes (BPH) - PSYCHIATRIC Hx Anxiety: Yes - SURGICAL HISTORY Hx Coronary Artery Bypass Graft: Yes (1994) Hx Coronary Stent: Yes (2000) - ANESTHESIA Hx Anesthesia: Yes Hx Anesthesia Reactions: No Hx Malignant Hyperthermia: No Has any member of the family had a problem w/ anesthesia?: No Meds Allergies/Adverse Reactions: Allergies Allergy/AdvReac Type Severity Reaction Status Date / Time gemfibrozil [From Lopid] Allergy RASH Verified 11/22/16 07:55 morphine Allergy SHORTNESS Verified 11/22/16 07:55 OF BREATH - Medications Medications: Current Medications Acetaminophen (Tylenol 650mg/20.3ml Solution Ud) 650 mg PEG Q4 PRN PRN Reason: Pain, moderate (4-7) Acetaminophen (Tylenol 650mg/20.3ml Solution Ud) 650 mg PEG Q4 PRN PRN Reason: Fever >100.4 F Acetylcysteine (Mucomyst 10% 4ml) 2 ml IH RBID [facility] Last Admin: 11/23/16 07:20 Dose: 2 ml Albuterol Sulfate (Albuterol 0.083% Inhal Mary (2.5 Mg/3 Ml) Ud) 2.5 mg INH RQ4 PRN PRN Reason: Shortness of Breath Last Admin: 11/23/16 03:48 Dose: 2.5 mg Albuterol/Ipratropium (Duoneb 3 Mg/0.5 Mg (3 Ml) Ud) 3 ml INH RQID [facility] Last Admin: 11/23/16 11:18 Dose: 3 ml Amiodarone HCl (Cordarone) 200 mg PEG DAILY [facility] Last Admin: 11/23/16 08:33 Dose: 200 mg Aspirin (Aspirin Chewable) 81 mg PEG DAILY [facility] Last Admin: 11/23/16 08:34 Dose: 81 mg Collagenase (Santyl) 1 applic TOP QSKSFT [facility] Dimethicone (Proshield Plus Skin Protectant) 1 applic TOP QSHIFT [facility] Ferrous Sulfate (Feosol Liq) 450 mg PEG DAILY [facility] Last Admin: 11/23/16 08:35 Dose: 450 mg Fluticasone Propionate (Flonase) 2 spr JAKUB DAILY PRN PRN Reason: ALLERGY SYMPTOMS Gabapentin (Neurontin) 400 mg PEG BID [facility] Last Admin: 11/23/16 08:34 Dose: 400 mg Gabapentin (Neurontin) 400 mg PEG HS [facility] Last Admin: 11/22/16 21:14 Dose: 400 mg Guaifenesin (Robitussin) 200 mg PEG QID [facility] Last Admin: 11/23/16 08:34 Dose: 200 mg Home Med (Amino Acid/Protein/Vit C/Zinc [Prosource Billy Protein Liquid]) 30 ml PEG TID [facility] Dextrose/Sodium Chloride (Dextrose 5%/0.45% Ns 1000 Ml) 1,000 mls @ 60 mls/hr IV [id number] [facility] Stop: 11/23/16 14:19 Last Admin: 11/23/16 08:31 Dose: Not Given Megestrol Acetate (Megace) 400 mg PEG DAILY [facility] Last Admin: 11/23/16 08:35 Dose: 400 mg Metoclopramide HCl (Reglan) 10 mg PEG HS [facility] Last Admin: 11/22/16 21:17 Dose: 10 mg Metoprolol Tartrate (Lopressor) 12.5 mg PEG Q12 [facility] Last Admin: 11/23/16 08:39 Dose: 12.5 mg Montelukast Sodium (Singulair) 10 mg PEG HS [facility] Last Admin: 11/22/16 21:18 Dose: 10 mg Ondansetron HCl (Zofran Odt) 4 mg PEG Q8 [facility] Last Admin: 11/23/16 08:36 Dose: 4 mg Pantoprazole Sodium (Protonix Susp) 40 mg PEG DAILY [facility] Last Admin: 11/23/16 08:33 Dose: 40 mg Fluticasone/Salmeterol (Advair Diskus 250/50) 1 puff INH Q12 [facility] Last Admin: 11/22/16 21:16 Dose: 1 puff Silver Sulfadiazine (Silvadene 1% 50 Gm) 1 applic TOP QSHIFT [facility] Sucralfate (Carafate Oral Susp) 1 gm PEG TID [facility] Last Admin: 11/23/16 08:40 Dose: 1 gm Tramadol HCl (Ultram) 50 mg GT Q6 PRN PRN Reason: Pain, severe (8-10) Last Admin: 11/23/16 09:20 Dose: 50 mg Physical Exam - Respiratory Exam Respiratory Exam: Rhonchi, Wheezes - Cardiovascular Exam Cardiovascular Exam: Tachycardia, REGULAR RHYTHM, +S1, +S2 - Extremities Exam Extremities exam: Positive for: normal inspection - Additional Findings Additional findings: EKG ST CXR REPORT NOTED WBC 23K K+ 4.6 Results - Vital Signs Recent Vital Signs: Last Vital Signs Temp 97.7 F 11/23/16 11:47 Pulse 96 H 11/23/16 11:47 Resp 18 11/23/16 11:47 BP 132/72 11/23/16 11:47 Pulse Ox 94 L 11/23/16 11:47 - Labs Result Diagrams: 11/23/16 05:45 11/23/16 05:45 Labs: Laboratory Results - last 24 hr 11/22/16 11/22/16 11/22/16 12:11 15:50 21:10 WBC RBC Hgb Hct MCV MCH MCHC RDW Plt Count MPV Neut % (Auto) Lymph % (Auto) [place] % (Auto) Eos % (Auto) Baso % (Auto) Neut # Lymph # [place] # Eos # Baso # Neutrophils % (Manual) Lymphocytes % (Manual) Monocytes % (Manual) Platelet Estimate Large Platelets Poikilocytosis (manual Anisocytosis (manual) Tear Drop Cells Ovalocytes Sodium Potassium Chloride Carbon Dioxide Anion Gap BUN Creatinine Est GFR ( Amer) Est GFR (Non-Af Amer) POC Glucose (mg/dL) 120 H 274 H 226 H Random Glucose Calcium Iron TIBC % Saturation Ferritin Total Bilirubin AST ALT Alkaline Phosphatase Total Protein Albumin Globulin Albumin/Globulin Ratio Vitamin B12 TSH 3rd Generation 11/23/16 11/23/16 11/23/16 05:09 05:45 05:45 WBC 18.7 H RBC 2.82 L Hgb 8.2 L Hct 25.8 L MCV 91.6 MCH 29.0 MCHC 31.7 L RDW 16.7 H Plt Count 237 MPV 8.9 Neut % (Auto) 94.7 H Lymph % (Auto) 1.3 L [place] % (Auto) 3.9 Eos % (Auto) 0.0 Baso % (Auto) 0.1 Neut # 17.7 H Lymph # 0.2 L [place] # 0.7 Eos # 0.0 Baso # 0.0 Neutrophils % (Manual) 97 H Lymphocytes % (Manual) 2 L Monocytes % (Manual) 1 Platelet Estimate Normal Large Platelets Present Poikilocytosis (manual Slight Anisocytosis (manual) Slight Tear Drop Cells Slight Ovalocytes Slight Sodium 140 Potassium 4.6 Chloride 103 Carbon Dioxide 27 Anion Gap 16 BUN 38 H Creatinine 1.2 Est GFR ( Amer) > 60 Est GFR (Non-Af Amer) 60 POC Glucose (mg/dL) 140 H Random Glucose 114 H Calcium 8.9 Iron TIBC % Saturation Ferritin 824.0 Total Bilirubin 0.4 AST 17 D ALT 36 Alkaline Phosphatase 82 Total Protein 5.7 L Albumin 2.7 L Globulin 3.1 Albumin/Globulin Ratio 0.9 L Vitamin B12 670 TSH 3rd Generation 0.13 L 11/23/16 11/23/16 08:15 10:48 WBC RBC Hgb Hct MCV MCH MCHC RDW Plt Count MPV Neut % (Auto) Lymph % (Auto) [place] % (Auto) Eos % (Auto) Baso % (Auto) Neut # Lymph # [place] # Eos # Baso # Neutrophils % (Manual) Lymphocytes % (Manual) Monocytes % (Manual) Platelet Estimate Large Platelets Poikilocytosis (manual Anisocytosis (manual) Tear Drop Cells Ovalocytes Sodium Potassium Chloride Carbon Dioxide Anion Gap BUN Creatinine Est GFR ( Amer) Est GFR (Non-Af Amer) POC Glucose (mg/dL) 168 H Random Glucose Calcium Iron 43 L TIBC 201 L % Saturation 21 Ferritin Total Bilirubin AST ALT Alkaline Phosphatase Total Protein Albumin Globulin Albumin/Globulin Ratio Vitamin B12 TSH 3rd Generation Assessment & Plan - Assessment and Plan (Free Text) Assessment: PROABABLE COPD EXACERBATION CAD-STABLE S/P ATRIAL FIBRILLATION-NOW IN NSR Plan: O2, AMIODARONE, ASPIRIN, METOPROLOL, ANTIBIOTICS, BRONCHODILATORS PULMOMARY AND ID TO SEE PATIENT
--- NOTE | 2016-11-23 13:58 | CP.PCM.CON ---
History of Present Illness - History of Present Illness History of Present Illness: [facility] from [facility] for shortness of breath, cough, fever and congestion. d/c from the hospital for pna on 11/19/2016 multiple recurrent episodes of pneumonia + Hx of ESBL in sputum - Medical History PMH: Anemia, Anxiety, Arthritis, Asthma, Atrial Fibrillation, Benign Prostatic Hyperplasia, Bronchitis, CAD, Cardia Arrhythmia ( afib , vtach ) , CHF, COPD, Diabetes (type II), Diverticulitis, Emphysema, HTN, Hypercholesterolemia, Peripheral Edema, Pneumonia Review of Systems - Constitutional Constitutional: As Per HPI, Anorexia, Chills, Fever, Malaise - EENT Eyes: absent: As Per HPI, Blind Spots, Blurred Vision, Change in Vision, Decreased Night Vision, Diplopia, Discharge, Dry Eye, Exophthalmos, Floaters, Irritation, Itchy Eyes, Loss of Peripheral Vision, Pain, Photophobia, Requires Corrective Lenses, Sees Flashes, Spots in Vision, Tunnel Vision, Other Visual Disturbances, Loss of Vision, Other Ears: absent: As Per HPI, Decreased Hearing, Ear Discharge, Ear Pain, Tinnitus, Abnormal Hearing, Disequilibrium, Dizziness, Other Nose/Mouth/Throat: absent: As Per HPI, Epistaxis, Nasal Congestion, Nasal Discharge, Nasal Obstruction, Nasal Trauma, Nose Pain, Post Nasal Drip, Sinus Pain, Sinus Pressure, Bleeding Gums, Change in Voice, Dental Pain, Dry Mouth, Dysphagia, Halitosis, Hoarsness, Lip Swelling, Mouth Lesions, Mouth Pain, Odynophagia, Sore Throat, Throat Swelling, Tongue Swelling, Facial Pain, Neck Pain, Neck Mass, Other - Cardiovascular Cardiovascular: As Per HPI - Respiratory Respiratory: As Per HPI, Cough, Dyspnea. absent: Hemoptysis - Genitourinary Genitourinary: absent: As Per HPI, Change in Urinary Stream, Difficulty Urinating, Dysuria, Flank Pain, Hematuria, Pyuria, Nocturia, Urinary Incontinence, Urinary Frequency, Urinary Hesitance, Urinary Urgency, Voiding Freq/Small Amts, Freq UTI, Hx Renal/Bladder Calculi, Hx /Renal Surgery, Bladder Distension, Other - Musculoskeletal Musculoskeletal: As Per HPI, Abnormal Gait - Integumentary Integumentary: absent: As Per HPI, Acne, Alopecia, Bleeding Lesions, Change in Hair, Change in Nails, Change in Pigmentation, Changing Lesions, Dry Skin, Erythema, Furuncle, Hirsutism, Lesions, New Lesions, Non-Healing Lesions, Photosensitivity, Pruritus, Rash, Skin Pain, Skin Ulcer, Sores, Striae, Swelling , Unusual Bruising, Wounds, Jaundice, Other - Neurological Neurological: absent: As Per HPI, Abnormal Gait, Abnormal Hearing, Abnormal Movements, Abnormal Speech, Behavioral Changes, Burning Sensations, Confusion, Convulsions, Disequilibrium, Dizziness, Numbness, Focal Weakness, Frequent Falls , Headaches, Lack of Coordination, Loss of Vision, Memory Loss, Paresthesias, Radicular Pain, Restless Legs, Sensory Deficit, Syncope, Tingling, Tremor, Vertigo, Weakness, Other Visual Disturbances, Other - Psychiatric Psychiatric: absent: As Per HPI, Abnormal Sleep Pattern, Anhedonia, Anxiety, Auditory Hallucinations, Behavioral Changes, Change in Appetite, Change in Libido, Confusion, Depression, Difficulty Concentrating, Hallucinations, Homicidal Ideation, Hopelessness, Irritability, Memory Loss, Mood Swings, Panic Attacks, Paranoia, Suicidal Ideation, Visual Hallucinations, Tactile Hallucinations, Other - Endocrine Endocrine: absent: As Per HPI, Change in Body Appearance, Change in Libido, Cold Intolorance, Deepening of Voice, Excessive Sweating, Fatigue, Flushing, Heat Intolorance, Increase in Ring/Shoe/Hat Size, Palpitations, Polydipsia, Polyphagia, Polyuria, Other - Hematologic/Lymphatic Hematologic: absent: As Per HPI, Easy Bleeding, Easy Bruising, Lymphadenopathy, Other Past Patient History - Infectious Disease Hx of Infectious Diseases: None - Tetanus Immunizations Tetanus Immunization: Unknown - Past Medical History & Family History Past Medical History?: Yes - Past Social History Smoking Status: Former Smoker - CARDIAC Hx Atrial Fibrillation: Yes Hx Cardia Arrhythmia: Yes Hx Congestive Heart Failure: Yes Hx Hypercholesterolemia: Yes Hx Hypertension: Yes Hx Peripheral Edema: Yes - PULMONARY Hx Asthma: Yes Hx Bronchitis: Yes Hx Chronic Obstructive Pulmonary Disease (COPD): Yes Hx Emphysema: Yes Hx Pneumonia: Yes - NEUROLOGICAL Hx Neurological Disorder: No - HEENT Hx Cataracts: Yes (right eye) - RENAL Hx Chronic Kidney Disease: No - ENDOCRINE/METABOLIC Hx Hypothyroidism: No - HEMATOLOGICAL/ONCOLOGICAL Hx Anemia: Yes Hx Human Immunodeficiency Virus (HIV): No - INTEGUMENTARY Hx Psoriasis: Yes - MUSCULOSKELETAL/RHEUMATOLOGICAL Hx Arthritis: Yes Hx Rheumatoid Arthritis: No - GASTROINTESTINAL Hx Diverticulitis: Yes - GENITOURINARY/GYNECOLOGICAL Hx Prostate Problems: Yes (BPH) - PSYCHIATRIC Hx Anxiety: Yes - SURGICAL HISTORY Hx Coronary Artery Bypass Graft: Yes (1994) Hx Coronary Stent: Yes (2000) - ANESTHESIA Hx Anesthesia: Yes Hx Anesthesia Reactions: No Hx Malignant Hyperthermia: No Has any member of the family had a problem w/ anesthesia?: No Meds Allergies/Adverse Reactions: Allergies Allergy/AdvReac Type Severity Reaction Status Date / Time gemfibrozil [From Lopid] Allergy RASH Verified 11/22/16 07:55 morphine Allergy SHORTNESS Verified 11/22/16 07:55 OF BREATH - Medications Medications: Current Medications Acetaminophen (Tylenol 650mg/20.3ml Solution Ud) 650 mg PEG Q4 PRN PRN Reason: Pain, moderate (4-7) Acetaminophen (Tylenol 650mg/20.3ml Solution Ud) 650 mg PEG Q4 PRN PRN Reason: Fever >100.4 F Acetylcysteine (Mucomyst 10% 4ml) 2 ml IH RBID [facility] Last Admin: 11/23/16 07:20 Dose: 2 ml Albuterol Sulfate (Albuterol 0.083% Inhal Mary (2.5 Mg/3 Ml) Ud) 2.5 mg INH RQ4 PRN PRN Reason: Shortness of Breath Last Admin: 11/23/16 03:48 Dose: 2.5 mg Albuterol/Ipratropium (Duoneb 3 Mg/0.5 Mg (3 Ml) Ud) 3 ml INH RQID [facility] Last Admin: 11/23/16 11:18 Dose: 3 ml Amiodarone HCl (Cordarone) 200 mg PEG DAILY [facility] Last Admin: 11/23/16 08:33 Dose: 200 mg Aspirin (Aspirin Chewable) 81 mg PEG DAILY [facility] Last Admin: 11/23/16 08:34 Dose: 81 mg Collagenase (Santyl) 1 applic TOP QSHIFT [facility] Dimethicone (Proshield Plus Skin Protectant) 1 applic TOP QSHIFT [facility] Ferrous Sulfate (Feosol Liq) 450 mg PEG DAILY [facility] Last Admin: 11/23/16 08:35 Dose: 450 mg Fluticasone Propionate (Flonase) 2 spr JAKUB DAILY PRN PRN Reason: ALLERGY SYMPTOMS Gabapentin (Neurontin) 400 mg PEG BID [facility] Last Admin: 11/23/16 08:34 Dose: 400 mg Gabapentin (Neurontin) 400 mg PEG HS [facility] Last Admin: 11/22/16 21:14 Dose: 400 mg Guaifenesin (Robitussin) 200 mg PEG QID [facility] Last Admin: 11/23/16 12:51 Dose: 200 mg Home Med (Amino Acid/Protein/Vit C/Zinc [Prosource Billy Protein Liquid]) 30 ml PEG TID [facility] Dextrose/Sodium Chloride (Dextrose 5%/0.45% Ns 1000 Ml) 1,000 mls @ 60 mls/hr IV .[id number] [facility] Stop: 11/23/16 14:19 Last Admin: 11/23/16 08:31 Dose: Not Given Megestrol Acetate (Megace) 400 mg PEG DAILY [facility] Last Admin: 11/23/16 08:35 Dose: 400 mg Metoclopramide HCl (Reglan) 10 mg PEG HS [facility] Last Admin: 11/22/16 21:17 Dose: 10 mg Metoprolol Tartrate (Lopressor) 12.5 mg PEG Q12 [facility] Last Admin: 11/23/16 08:39 Dose: 12.5 mg Montelukast Sodium (Singulair) 10 mg PEG HS [facility] Last Admin: 11/22/16 21:18 Dose: 10 mg Ondansetron HCl (Zofran Odt) 4 mg PEG Q8 [facility] Last Admin: 11/23/16 08:36 Dose: 4 mg Pantoprazole Sodium (Protonix Susp) 40 mg PEG DAILY [facility] Last Admin: 11/23/16 08:33 Dose: 40 mg Fluticasone/Salmeterol (Advair Diskus 250/50) 1 puff INH Q12 [facility] Last Admin: 11/22/16 21:16 Dose: 1 puff Silver Sulfadiazine (Silvadene 1% 50 Gm) 1 applic TOP QSHIFT [facility] Sucralfate (Carafate Oral Susp) 1 gm PEG TID [facility] Last Admin: 11/23/16 12:51 Dose: 1 gm Tramadol HCl (Ultram) 50 mg GT Q6 PRN PRN Reason: Pain, severe (8-10) Last Admin: 11/23/16 09:20 Dose: 50 mg Physical Exam - Constitutional Appears: Confused, Cachectic, Chronically Ill - Head Exam Head Exam: ATRAUMATIC, NORMAL INSPECTION, NORMOCEPHALIC - Eye Exam Eye Exam: EOMI, PERRL. absent: Scleral icterus - Expanded ENT Exam Expanded Ear exam: absent: Auricular Trauma Mouth exam: dry mucosa, tongue normal. absent: drooling, tongue elevation, trismus Teeth exam: normal external inspection Throat exam: Normal Inspection - Neck Exam Neck exam: Negative for: Lymphadenopathy - Respiratory Exam Respiratory Exam: Decreased Breath Sounds, Rales, Rhonchi - Cardiovascular Exam Cardiovascular Exam: REGULAR RHYTHM, +S1, +S2 - GI/Abdominal Exam GI & Abdominal Exam: Diminished Bowel Sounds, Soft. absent: Tenderness - Rectal Exam Rectal Exam: Deferred - Exam Exam: NORMAL INSPECTION - Extremities Exam Extremities exam: Positive for: pedal pulses present. Negative for: calf tenderness, pedal edema, tenderness - Back Exam Back exam: absent: CVA tenderness (L), CVA tenderness (R), paraspinal tenderness - Neurological Exam Neurological exam: Alert, CN II-XII Intact, Oriented x3, Reflexes Normal - Psychiatric Exam Psychiatric exam: Depressed, Flat Affect - Skin Skin Exam: Dry, Intact, Normal Color, Warm Results - Vital Signs Recent Vital Signs: Last Vital Signs Temp 97.7 F 11/23/16 11:47 Pulse 96 H 11/23/16 11:47 Resp 18 11/23/16 11:47 BP 132/72 11/23/16 11:47 Pulse Ox 94 L 11/23/16 11:47 - Labs Result Diagrams: 11/23/16 05:45 11/23/16 05:45 Labs: Laboratory Results - last 24 hr 11/22/16 11/22/16 11/23/16 15:50 21:10 05:09 WBC RBC Hgb Hct MCV MCH MCHC RDW Plt Count MPV Neut % (Auto) Lymph % (Auto) [place] % (Auto) Eos % (Auto) Baso % (Auto) Neut # Lymph # [place] # Eos # Baso # Neutrophils % (Manual) Lymphocytes % (Manual) Monocytes % (Manual) Platelet Estimate Large Platelets Poikilocytosis (manual Anisocytosis (manual) Tear Drop Cells Ovalocytes Sodium Potassium Chloride Carbon Dioxide Anion Gap BUN Creatinine Est GFR ( Amer) Est GFR (Non-Af Amer) POC Glucose (mg/dL) 274 H 226 H 140 H Random Glucose Calcium Iron TIBC % Saturation Ferritin Total Bilirubin AST ALT Alkaline Phosphatase Total Protein Albumin Globulin Albumin/Globulin Ratio Vitamin B12 TSH 3rd Generation 11/23/16 11/23/16 11/23/16 05:45 05:45 08:15 WBC 18.7 H RBC 2.82 L Hgb 8.2 L Hct 25.8 L MCV 91.6 MCH 29.0 MCHC 31.7 L RDW 16.7 H Plt Count 237 MPV 8.9 Neut % (Auto) 94.7 H Lymph % (Auto) 1.3 L [place] % (Auto) 3.9 Eos % (Auto) 0.0 Baso % (Auto) 0.1 Neut # 17.7 H Lymph # 0.2 L [place] # 0.7 Eos # 0.0 Baso # 0.0 Neutrophils % (Manual) 97 H Lymphocytes % (Manual) 2 L Monocytes % (Manual) 1 Platelet Estimate Normal Large Platelets Present Poikilocytosis (manual Slight Anisocytosis (manual) Slight Tear Drop Cells Slight Ovalocytes Slight Sodium 140 Potassium 4.6 Chloride 103 Carbon Dioxide 27 Anion Gap 16 BUN 38 H Creatinine 1.2 Est GFR ( Amer) > 60 Est GFR (Non-Af Amer) 60 POC Glucose (mg/dL) Random Glucose 114 H Calcium 8.9 Iron 43 L TIBC 201 L % Saturation 21 Ferritin 824.0 Total Bilirubin 0.4 AST 17 D ALT 36 Alkaline Phosphatase 82 Total Protein 5.7 L Albumin 2.7 L Globulin 3.1 Albumin/Globulin Ratio 0.9 L Vitamin B12 670 TSH 3rd Generation 0.13 L 11/23/16 10:48 WBC RBC Hgb Hct MCV MCH MCHC RDW Plt Count MPV Neut % (Auto) Lymph % (Auto) [place] % (Auto) Eos % (Auto) Baso % (Auto) Neut # Lymph # [place] # Eos # Baso # Neutrophils % (Manual) Lymphocytes % (Manual) Monocytes % (Manual) Platelet Estimate Large Platelets Poikilocytosis (manual Anisocytosis (manual) Tear Drop Cells Ovalocytes Sodium Potassium Chloride Carbon Dioxide Anion Gap BUN Creatinine Est GFR ( Amer) Est GFR (Non-Af Amer) POC Glucose (mg/dL) 168 H Random Glucose Calcium Iron TIBC % Saturation Ferritin Total Bilirubin AST ALT Alkaline Phosphatase Total Protein Albumin Globulin Albumin/Globulin Ratio Vitamin B12 TSH 3rd Generation Assessment & Plan (1) COPD (chronic obstructive pulmonary disease) with acute bronchitis Status: Acute Priority: High (2) Atrial fibrillation Status: Acute (3) CHF (congestive heart failure) Status: Acute (4) Dehydration Status: Acute (5) Moderate COPD (chronic obstructive pulmonary disease) Status: Acute (6) PAD (peripheral artery disease) Status: Acute (7) Pneumonia Status: Acute Priority: High (8) COPD (chronic obstructive pulmonary disease) Status: Chronic Priority: High (9) COPD exacerbation Status: Chronic Priority: Medium - Assessment and Plan (Free Text) Assessment: cont iv antibiotics chest pt/ bronchodilators rx for bronchiectasis may need long coyurse iv rx due to recurrent infections
[2016-11-23] MEDS ORDERED: Cefepime 2 GM in Sodium Chloride 0.9% 100 ML IVPB SCH (21:00)
--- NOTE | 2016-11-23 21:35 | CP.PCM.PN ---
Subjective - Date & Time of Evaluation Date of Evaluation: 11/23/16 Time of Evaluation: 22:22 - Subjective Subjective: Congested Coughing after eating Objective - Vital Signs/Intake and Output Vital Signs (last 24 hours): Temp Pulse Resp BP Pulse Ox 97.6 F 94 H 18 115/77 99 11/23/16 15:39 11/23/16 15:39 11/23/16 15:39 11/23/16 15:39 11/23/16 15:39 - Medications Medications: Current Medications Acetaminophen (Tylenol 650mg/20.3ml Solution Ud) 650 mg PEG Q4 PRN PRN Reason: Pain, moderate (4-7) Acetaminophen (Tylenol 650mg/20.3ml Solution Ud) 650 mg PEG Q4 PRN PRN Reason: Fever >100.4 F Acetylcysteine (Mucomyst 10% 4ml) 2 ml IH RBID [facility] Last Admin: 11/23/16 19:43 Dose: 2 ml Albuterol Sulfate (Albuterol 0.083% Inhal Mary (2.5 Mg/3 Ml) Ud) 2.5 mg INH RQ4 PRN PRN Reason: Shortness of Breath Last Admin: 11/23/16 03:48 Dose: 2.5 mg Albuterol/Ipratropium (Duoneb 3 Mg/0.5 Mg (3 Ml) Ud) 3 ml INH RQID [facility] Last Admin: 11/23/16 19:43 Dose: 3 ml Amiodarone HCl (Cordarone) 200 mg PEG DAILY [facility] Last Admin: 11/23/16 08:33 Dose: 200 mg Aspirin (Aspirin Chewable) 81 mg PEG DAILY [facility] Last Admin: 11/23/16 08:34 Dose: 81 mg Collagenase (Santyl) 1 applic TOP 0900,2100 [facility] Dimethicone (Proshield Plus Skin Protectant) 1 applic TOP 0900,2100 [facility] Ferrous Sulfate (Feosol Liq) 450 mg PEG DAILY [facility] Last Admin: 11/23/16 08:35 Dose: 450 mg Fluticasone Propionate (Flonase) 2 spr JAKUB DAILY PRN PRN Reason: ALLERGY SYMPTOMS Gabapentin (Neurontin) 400 mg PEG BID [facility] Last Admin: 11/23/16 16:24 Dose: 400 mg Gabapentin (Neurontin) 400 mg PEG HS [facility] Last Admin: 11/22/16 21:14 Dose: 400 mg Guaifenesin (Robitussin) 200 mg PEG QID [facility] Last Admin: 11/23/16 16:22 Dose: 200 mg Home Med (Amino Acid/Protein/Vit C/Zinc [Prosource Billy Protein Liquid]) 30 ml PEG TID [facility] Vancomycin HCl 1 gm/ Sodium (Chloride) 250 mls @ 250 mls/hr IVPB DAILY [facility] Cefepime HCl 2 gm/ Sodium (Chloride) 100 mls @ 100 mls/hr IVPB Q12 [facility] Megestrol Acetate (Megace) 400 mg PEG DAILY [facility] Last Admin: 11/23/16 08:35 Dose: 400 mg Metoclopramide HCl (Reglan) 10 mg PEG HS [facility] Last Admin: 11/22/16 21:17 Dose: 10 mg Metoprolol Tartrate (Lopressor) 12.5 mg PEG Q12 [facility] Last Admin: 11/23/16 08:39 Dose: 12.5 mg Montelukast Sodium (Singulair) 10 mg PEG HS [facility] Last Admin: 11/22/16 21:18 Dose: 10 mg Ondansetron HCl (Zofran Odt) 4 mg PEG Q8 [facility] Last Admin: 11/23/16 16:22 Dose: 4 mg Pantoprazole Sodium (Protonix Susp) 40 mg PEG DAILY [facility] Last Admin: 11/23/16 08:33 Dose: 40 mg Fluticasone/Salmeterol (Advair Diskus 250/50) 1 puff INH Q12 [facility] Last Admin: 11/22/16 21:16 Dose: 1 puff Silver Sulfadiazine (Silvadene 1% 50 Gm) 1 applic TOP 0900,2100 [facility] Sucralfate (Carafate Oral Susp) 1 gm PEG TID [facility] Last Admin: 11/23/16 16:22 Dose: 1 gm Tramadol HCl (Ultram) 50 mg GT Q6 PRN PRN Reason: Pain, severe (8-10) Last Admin: 11/23/16 09:20 Dose: 50 mg - Labs Labs: 11/23/16 05:45 11/23/16 05:45 PT 10.9 SECONDS (9.6-11.2) 11/22/16 08:00 INR 1.05 (0.92-1.08) 11/22/16 08:00 APTT 26.7 SECONDS (23.3-32.5) 11/22/16 08:00 - Respiratory Exam Respiratory Exam: NORMAL BREATHING PATTERN - Cardiovascular Exam Cardiovascular Exam: REGULAR RHYTHM - GI/Abdominal Exam GI & Abdominal Exam: Normal Bowel Sounds Assessment and Plan - Assessment and Plan (Free Text) Assessment: SOB Congestion Aspiration?? HX COPD S/P Klebsiella RLL Pneumonia? S/P L pneumothorax ABX IVF Steroids ?? Pulmonary ID Hx Dec oral intake improved on Megace swallowing?? aspiration?? PEG Jevity and oral feedings GI consult Repeat swallowing evaluation ??? Hx s/p + C-diff + Ag -toxin S/P V-fib/ V-tach 2 to pulmonary dx A-fib CAD S/P CABG Amiodorone Cardiology Chronic chest wall pain Pain meds HX Hyperkalemia and hypokalemia etiol ?? s/p SMITA/ CKD Adrenal insufficiency?? Hx of Orthostatic Hypotension at NH ACTH Cortisol level ?? Eamon d/c Endo
[2016-11-23] MEDS: Proshield Plus GEL TOP SCH (22:02)
[2016-11-23] MEDS: Santyl Collagenase OINTMENT TOP SCH (22:04)
[2016-11-23] MEDS: Silver Sulfadiazine 1% CREAM (50 gm) TOP SCH (22:05)
[2016-11-23 22:42] LABS: ABG ALLEN TEST YES; ARTERIAL BLOOD GAS HCO3 25.4 mmol/L (21-28); ARTERIAL BLOOD GAS O2 CAPACITY 11.8 mL/dL (16-24); ARTERIAL BLOOD GAS O2 CONTENT 11.6 ML/dL (15-23); ARTERIAL BLOOD GAS PH 7.26 (7.35-7.45); ARTERIAL BLOOD GAS PO2 78 mm/Hg (80-100); ARTERIAL BLOOD HGB O2 SAT 94.6 % (95.0-98.0); HHB 1.9 % (0.0-5.0); METHEMOGLOBIN 1.5 % (0.0-3.0)
--- NOTE | 2016-11-24 05:26 | PCM.ANES ---
Anesthesia Emergent Intubation - Diagnosis Working Diagnosis:: code blue - Consult Reason for Consult:: code blue - Intubation Attempts Previous Number of Intubation Attempts:: 0 - Pre-Intubation Vital Signs FIO2: 100 Oxygen Delivery Method: Ambu-Bag Level Of Consciousness: Comatose/Unresponsive - Airway Management Oropharyngeal Area Suctioned: Yes PreOxygenation: 100 Inhalation: Yes Possible Aspiration: No (ACLS in progress when called. Secretions in back of oropharynx upon arrival) - Intubation Devices [place] Scope Used: Yes ( MAC 3 blade one attempt easy confirmed by glidescope) - Placement Confirmation Breath Sounds Present & Equal Bilaterally: Yes Gurgling Sounds Not Audible at Epigastrum: No Positive EtCO2: Yes Portable CXR: Yes Recommendations: Ventilator - Post-Intubation Vital Signs FIO2: 100
[2016-11-24] MEDS ORDERED: Sodium Bicarbonate 7.5% (0.9 MEQ/ML) 50ML INJ IV ONE (05:30)
[2016-11-24 05:43] LABS: ABG ALLEN TEST YES; ABG MECHANICAL RATE 12; ARTERIAL BLOOD GAS HCO3 25.9 mmol/L (21-28); ARTERIAL BLOOD GAS MODE A/C; ARTERIAL BLOOD GAS O2 CAPACITY 13.3 mL/dL (16-24); ARTERIAL BLOOD GAS O2 CONTENT 13.4 ML/dL (15-23); ARTERIAL BLOOD GAS PH 7.15 (7.35-7.45); ARTERIAL BLOOD GAS PO2 304 mm/Hg (80-100); ARTERIAL BLOOD HGB O2 SAT 97.5 % (95.0-98.0); ATERIAL BLOOD GAS PEEP 5; CARBOXYHEMOGLOBIN 1.6 % (0.5-1.5); HHB -0.4 % (0.0-5.0); METHEMOGLOBIN 1.2 % (0.0-3.0)
[2016-11-24 05:46] LABS: HEMATOCRIT 28.7 % (35.0-51.0); MEAN CELL VOLUME 96.4 fl (80.0-94.0); MEAN CORPUSCULAR HEMOGLOBIN 28.8 pg (27.0-31.0); MEAN CORPUSCULAR HGB CONC 29.8 g/dL (33.0-37.0); RED CELL DISTRIBUTION WIDTH 17.3 % (11.5-14.5); WHITE BLOOD COUNT 20.8 K/uL (4.8-10.8)
--- NOTE | 2016-11-24 06:10 | PCM.PROC ---
Procedures Attestation:: I certify that I have explained the specified Operation(s) or Procedure(s), risks, benefits and reasonable alternatives to the Patient and/or other person responsible. The opportunity was given to ask questions and all questions answered - Central Line Placement Right Internal Jugular Triple Lumen Catheter Aseptic technique was employed throughout the procedure: Hand Hygiene done prior to procedure, Full sterile barriers (mask, hair cover, sterile gown, sterile gloves), Full body sterile drape, Chloraprep Antiseptic: 30 second prep for IJ or SC sites CVP Time Out Performed: Yes Pt. Placed on Pulse Ox Monitor: Yes Central Line Prep: Chlorhexidine-Alcohol Combination Ultrasound Used for Placement: Yes Central Line Lumen Inserted: triple Central Line Length: 16 cm Post Procedure: Sutured in Place, Good Blood Return, All Ports Aspirated, Flushed, Capped, Sterile Dressing Applied Secured by: Suture Post procedure dressing: Clear vapor permeable, Chlorhexidine disc (Biopatch) Post Procedure X-Ray: Yes Patient Tolerated Procedure: Well Immediate Complications: None Additional Comments: This line was emergently placed during a code blue and the above attestation does not apply to this placement. Appropriate time out was conducted, patient prepped and draped in sterile fashion, access site was visualized with ultrasound and ultrasound used throughout entire procedure. Seldinger technique was used throughout entire procedure, with placement at 15cm, blood return from all 3 ports, and catheter secured with sutures and sterile dressing applied. Patient tolerated procedure well and there were no observed complications.
[2016-11-24 06:22] LABS: BILIRUBIN,TOTAL 0.6 mg/dl (0.2-1.3); CALCIUM 8.1 mg/dL (8.4-10.2); POTASSIUM 4.8 MMOL/L (3.6-5.0); TOTAL PROTEIN 5.1 G/DL (6.3-8.2)
[2016-11-24 06:32] LABS: ALB/GLOB RATIO 0.9 (1.0-2.1); PARTIAL THROMBOPLASTIN TIME 33.9 SECONDS (23.3-32.5)
[2016-11-24 06:34] LABS: TROPONIN I 0.053 ng/mL (0.00-0.120)
[2016-11-24] MEDS: Propofol 10 mg/ml 1,000 MG/100 ML VIAL IV SCH ×2 (06:48→07:00)
[2016-11-24] MEDS ORDERED: Sodium Chloride 0.9% 1,000 ML IV SCH (07:15)
[2016-11-24] MEDS: Sodium Chloride 0.9% 500 ML IV SCH ×2 (07:59→08:05)
--- NOTE | 2016-11-24 08:21 | PQF CHF ---
This form is a permanent part of the medical record 11/24/16 Dr. Gage, Please clarify the TYPE of CHF. Documentation of a history of CHF with an EF of 30%. Admitted with SOB. Pro BNP 25,400. CXR: Possible minor improvement in aeration. Diffuse interstitial changes with possible mild superimposed congestion. Small effusions. Medication includes Lopressor Clarification of your documentation is requested to better reflect the severity of illness and intensity of treatment of your patient. Indicators present [x] Diagnosis of CHF and/or history of CHF [x] BNP > 200 [x] Imaging Finding of Pulmonary Edema /Pleural Effusions [] Fluid/Volume Overload [] Pitting edema [x] Ejection Fraction < 40% (Indicative of Systolic Heart Failure) [] Ejection Fraction > 40% (Indicative of Diastolic Heart Failure) [x] Dyspnea / Orthopenea / Paroxysmal Nocturnal Dyspnea [] Other: Location in the medical record that reflects the above clinical findings: [] Treatment Provided: [] PHYSICIAN'S RESPONSE Based on your medical judgment of the clinical indicators outlined above, are you treating this patient for a known or suspected: [] Acute CHF [] Systolic [] Diastolic [] Combined [x] Chronic CHF [] Systolic [] Diastolic [x] Combined [] Acute on Chronic CHF []Systolic [] Diastolic [] Combined [] CHF due hypertension [] Acute systolic []Chronic systolic [] Acute/ chronic systolic [] Other, please indicate: [] [] If Unable to Determine, please check the box, sign and date. Present On Admission (POA) Indicator: [x] Present at the time of admission [] Not present at the time of admission [] Clinically Undetermined In responding to this query, please exercise your independent professional judgment. The fact that a question is asked does not imply that any particular answer is desired or expected. Thank you for your clarification on this documentation. If you have any questions please call:[phone] * Thank you, Iram Patel RN CDMP [facility]
--- NOTE | 2016-11-24 08:25 | PQF GENQUE ---
This form is a permanent part of the medical record 11/24/16 Dr. Gage, Would you please clarify the TYPE of Atrial Fibrillation. Documentation of a history of Atrial fibrillation now in NSR. EKG: Sinus tachycardia with occasional ventricular paced complexes. Medications include: Amiodarone, Lopressor. Clarification of your documentation is requested to better reflect the severity of illness and intensity of treatment of your patient. PHYSICIAN'S RESPONSE [ ] Chronic [ x] Paroxysmal [ ] Permanent [ ] Persistent [ ] Other (please specify type ) [ ] Unable to determine [ ] Unknown Based on your medical judgment of the clinical indicators outlined above please clarify the following: [x] Practitioner response [] If unable to determine, please check the box, sign and date. Present On Admission (POA) Indicator: [] Present at the time of admission [x] Not present at the time of admission [] Clinically Undetermined In responding to this query, please exercise your independent professional judgment. The fact that a question is asked does not imply that any particular answer is desired or expected. Thank you for your clarification on this documentation. If you have any questions please call:[phone] * Thank you, Iram Patel RN CDMP [facility]
[2016-11-24] MEDS: guaiFENesin 200 mg/10 ml Syrup UD PEG SCH ×3 (08:48→16:39)
[2016-11-24] MEDS: Ferrous Sulfate 300 mg/5 mL Liq UD PEG SCH (08:52)
[2016-11-24] MEDS: Megestrol Acetate 40 mg/ml Cup PEG SCH (08:54)
[2016-11-24] MEDS: Pantoprazole 40 mg Susp UD PEG SCH (08:55)
[2016-11-24] MEDS: Santyl Collagenase OINTMENT TOP SCH ×2 (08:55→20:25)
[2016-11-24] MEDS: Proshield Plus GEL TOP SCH ×2 (08:55→20:27)
--- NOTE | 2016-11-24 08:55 | CP.CCUPN ---
CCU Subjective - Physician Review Events Since Last Encounter (Free Text): 11/24/16 08:37 Chief complaint: SOB Consult note: requested by Dr. Dial HPI: PT is a 71 y/o gentleman well known due in part to previous admissions. PT was recently admitted with possible Fever, Productive Cough and well known to have a h/o A fib, BPH, COPD, CHF, CAD, DM type 2, HTN, and previous code blue in the past. Pt primary was concerned about pt breathing so he was evaluated by me. At the time of my visit to the pt he was having some mild exp. wheeze but was otherwise saturating well 94-95%. Pt recieved several respiratory treatments and started on Bipap as ABG indicated some hypercapnea. PT was hemodynamically stable with no complaints tolerating well, refusing further treatments. He was supervised throughout the night and around 4 to 4: 30 AM pt was last seen by nurse to be doing well ambulating/moving in bed approx. 5 min prior to code blue. PT became bradycardic and went asystole. Upon intubation mucus secretions were aspirated. PT was recently sent from retirement for shortness of breath, cough, fever and congestion. He was d/c from the hospital for pna on 11/19/2016 similar sx in the past per pmd for pna and copd. Last Vital Signs Temp 99.4 F 11/22/16 09:26 Pulse 105 H 11/22/16 08:05 Resp 24 11/22/16 08:05 BP 136/79 11/22/16 08:05 Pulse Ox 92 L 11/22/16 08:23 PMH: Anemia, Anxiety, Arthritis, Asthma, Atrial Fibrillation, Benign Prostatic Hyperplasia, Bronchitis, CAD, Cardia Arrhythmia, CHF, COPD, Diabetes (type II), Diverticulitis, Emphysema, HTN, Hypercholesterolemia, Peripheral Edema, Pneumonia Surgical History: CABG (1994), Coronary Stent (2000), Hernia Repair () Family History: States: Unknown Family Hx Living Arrangements: Penitentiary/Assist Lv Home Medications: Ambulatory Orders Medication Instructions Recorded Fluticasone Propionate [Flonase] 2 spr JAKUB DAILY PRN #0 bottle 03/03/16 Tiotropium [Spiriva] 18 mcg IH DAILY #0 cap 03/03/16 Amiodarone [Cordarone] 200 mg PO DAILY tab 09/05/16 Ipratropium 0.02% [Atrovent] 0.5 mg IH QID #90 neb 09/05/16 Levalbuterol HCl [Xopenex] 0.63 mg IH QID #90 vial.neb 09/05/16 Metoprolol Tartrate [Lopressor] 12.5 mg PO Q12 tab 09/05/16 traMADol [Ultram] 50 mg GT Q6 PRN #0 tab 09/05/16 Acetaminophen [Tylenol 325mg tab] 650 mg PO Q4H PRN 09/12/16 Montelukast [Singulair] 10 mg PEG HS 09/12/16 Amino Acid/Protein/Vit C/Zinc 30 ml PEG TID 11/14/16 [Prosource Billy Protein Liquid] Aspirin [Aspirin Chewable] 81 mg PEG DAILY 11/14/16 Collagenase [Santyl] 1 appl TOP QSHIFT 11/14/16 Dimethicone [Proshield Plus Skin 1 appl TOP QSHIFT 11/14/16 Protectant] Ferrous Sulfate [Feosol Liq] 7.5 ml PEG DAILY 11/14/16 Fluticasone/Salmeterol 250/50 1 puff INH Q12 11/14/16 [Advair Diskus 250/50] Gabapentin [Neurontin] 400 mg PEG BID 11/14/16 Gabapentin [Neurontin] 400 mg PEG HS 11/14/16 Guaifenesin [Mucinex] 600 mg PEG BID 11/14/16 Megestrol [Megace] 10 ml PEG DAILY 11/14/16 Metoclopramide [Reglan] 10 mg PEG HS 11/14/16 Ondansetron ODT [Zofran ODT] 4 mg PEG Q8 11/14/16 Pantoprazole [Protonix Susp] 40 mg PEG DAILY 11/14/16 Silver Sulfadiazine 1% [Silvadene 1 appl TOP QSHIFT 11/14/16 1%] Sucralfate [Carafate Oral Susp] 1 dose PEG TID 11/14/16 Moxifloxacin [Avelox] 400 mg PO DAILY #7 tab 11/18/16 predniSONE [predniSONE Tab] 30 mg PO DAILY #10 tab 11/18/16 Allergies/Adverse Reactions: Allergies Allergy/AdvReac Type Severity Reaction Status Date / Time gemfibrozil [From Lopid] Allergy RASH Verified 11/22/16 07:55 morphine Allergy SHORTNESS Verified 11/22/16 07:55 OF BREATH Review Of Systems: ROS cannot be obtained secondary to pt's inabilty to answer questions. - ECG ECG: Positive for: Interpreted By Me ECG Rhythm: Positive for: Normal QRS, Normal ST Segment, Sinus Tachycardia Interpretation Of Abn EKG: sinus tach abnml ecg w/o change compared to 11/14/2016 O2 Sat by Pulse Oximetry: 95 - Radiology X-Ray Interpretation: Infiltrates (bl interstitial infiltrates nml cardiac border s/p cabg) CCU Objective - Vital Signs / Intake & Output Vital Signs (Last 4 hours): Vital Signs Temp Pulse Resp BP Pulse Ox 11/24/16 08:00 99.3 F 109 H 25 H 140/76 100 11/24/16 07:00 103 H 18 131/73 11/24/16 06:15 97 F L 101 H 26 H 60/46 L 11/24/16 04:47 100 H Intake and Output (Last 8hrs): Intake & Output 11/23/16 11/24/16 11/24/16 22:59 06:59 14:59 Intake Total 500 Balance 500 Intake: IV 500 - Physical Exam Head: Positive for: Atraumatic, Normocephalic Pupils: Positive for: PERRL Extroacular Muscles: Positive for: EOMI Conjunctiva: Positive for: Normal Mouth: Positive for: Moist Mucous Membranes Pharnyx: Positive for: Other (ET tube in place) Neck: Positive for: Normal Range of Motion Respiratory/Chest: Positive for: Good Air Exchange, Wheezes, Rhonchi Cardiovascular: Positive for: Irregular Rhythm Upper Extremity: Positive for: Normal Inspection Lower Extremity: Positive for: Normal Inspection, Edema Neurological: Positive for: GCS=15, CN II-XII Intact, Speech Normal Skin: Positive for: Warm, Dry, Rashes, Normal Color Psychiatric: Positive for: Alert, Oriented x 3, Normal Insight, Normal Concentration - Medications Active Medications: Active Medications Generic Name Dose Route Start Last Admin Trade Name Freq PRN Reason Stop Dose Admin Acetaminophen 650 mg 11/22/16 16:39 Tylenol 650mg/20.3ml Solution Ud PEG Q4 PRN Pain, moderate (4-7) Acetaminophen 650 mg 11/22/16 16:45 Tylenol 650mg/20.3ml Solution Ud PEG Q4 PRN Fever >100.4 F Acetylcysteine 2 ml 11/22/16 20:00 11/23/16 19:43 Mucomyst 10% 4ml IH 2 ml RBID OTTONIEL Administration Albuterol Sulfate 2.5 mg 11/22/16 14:14 11/23/16 03:48 Albuterol 0.083% Inhal Mary (2.5 Mg/3 Ml) Ud INH 2.5 mg RQ4 PRN Administration Shortness of Breath Albuterol/Ipratropium 3 ml 11/22/16 16:00 11/23/16 19:43 Duoneb 3 Mg/0.5 Mg (3 Ml) Ud INH 3 ml RQID OTTONIEL Administration Amiodarone HCl 200 mg 11/23/16 09:00 11/23/16 08:33 Cordarone PEG 200 mg DAILY OTTONIEL Administration Aspirin 81 mg 11/22/16 13:15 11/23/16 08:34 Aspirin Chewable PEG 81 mg DAILY OTTONIEL Administration Collagenase 1 applic 11/23/16 21:00 11/23/16 22:04 Santyl TOP 1 applic 0900,2100 OTTONIEL Administration Dimethicone 1 applic 11/23/16 21:00 11/23/16 22:02 Proshield Plus Skin Protectant TOP 1 applic 0900,2100 OTTONIEL Administration Ferrous Sulfate 450 mg 11/22/16 13:15 11/23/16 08:35 Feosol Liq PEG 450 mg DAILY OTTONIEL Administration Fluticasone Propionate 2 spr 11/22/16 13:06 Flonase JAKUB DAILY PRN ALLERGY SYMPTOMS Gabapentin 400 mg 11/22/16 17:00 11/23/16 16:24 Neurontin PEG 400 mg BID OTTONIEL Administration Gabapentin 400 mg 11/22/16 22:00 11/23/16 22:01 Neurontin PEG 400 mg HS OTTONIEL Administration Guaifenesin 200 mg 11/22/16 17:00 11/23/16 22:02 Robitussin PEG 200 mg QID OTTONIEL Administration Home Med 30 ml 11/22/16 17:00 Amino Acid/Protein/Vit C/Zinc [Prosource Billy Protein Liquid] PEG TID OTTONIEL Vancomycin HCl 1 gm/ Sodium 250 mls @ 250 mls/hr 11/24/16 09:00 Chloride IVPB DAILY OTTONIEL Dextrose/Sodium Chloride 1,000 mls @ 80 mls/hr 11/23/16 23:30 11/23/16 23:55 Dextrose 5%/0.45% Ns 1000 Ml IV 11/24/16 23:29 80 mls/hr .[id number] OTTONIEL Administration Propofol 1,000 mg in 100 mls @ 1.783 mls/hr 11/24/16 06:15 Diprivan IV 11/25/16 06:03 .Q24H OTTONIEL Protocol 5 MCG/KG/MIN Norepinephrine Bitartrate 4 mg 254 mls @ 38.1 mls/hr 11/24/16 06:45 11/24/16 07:32 / Dextrose IV 7.5 mcg/min .Q6H40M OTTONIEL 28.57 mls/hr Protocol Titration 10 MCG/MIN Sodium Chloride 1,000 mls @ 125 mls/hr 11/24/16 07:15 Sodium Chloride 0.9% IV 11/25/16 07:01 .Q8H OTOTNIEL Piperacillin Sod/Tazobactam 100 mls @ 100 mls/hr 11/24/16 09:00 Sod 4.5 gm/ Sodium Chloride IVPB Q8 OTTONIEL Megestrol Acetate 400 mg 11/22/16 13:15 11/23/16 08:35 Megace PEG 400 mg DAILY OTTONIEL Administration Metoclopramide HCl 10 mg 11/22/16 22:00 11/23/16 22:02 Reglan PEG 10 mg HS OTTONIEL Administration Metoprolol Tartrate 12.5 mg 11/22/16 21:00 11/23/16 22:00 Lopressor PEG 12.5 mg Q12 OTTONIEL Administration Montelukast Sodium 10 mg 11/22/16 22:00 11/23/16 22:06 Singulair PEG 10 mg HS OTTONIEL Administration Ondansetron HCl 4 mg 11/22/16 17:00 11/24/16 01:15 Zofran Odt PEG 4 mg Q8 OTTONIEL Administration Pantoprazole Sodium 40 mg 11/22/16 13:15 11/23/16 08:33 Protonix Susp PEG 40 mg DAILY OTTONIEL Administration Fluticasone/Salmeterol 1 puff 11/22/16 21:00 11/22/16 21:16 Advair Diskus 250/50 INH 1 puff Q12 OTTONIEL Administration Silver Sulfadiazine 1 applic 11/23/16 21:00 11/23/16 22:05 Silvadene 1% 50 Gm TOP 1 applic 0900,2100 OTTONIEL Administration Sucralfate 1 gm 11/22/16 17:00 11/23/16 16:22 Carafate Oral Susp PEG 1 gm TID OTTONIEL Administration Tramadol HCl 50 mg 11/22/16 13:18 11/23/16 09:20 Ultram GT 50 mg Q6 PRN Administration Pain, severe (8-10) - Patient Studies Lab Studies: Microbiology Studies 11/22/16 23:06 Gram Stain - Final Sputum Lab Studies 11/24/16 11/24/16 11/24/16 Range/Units 06:05 06:00 06:00 WBC (4.8-10.8) K/uL RBC (4.40-5.90) Mil/uL Hgb (12.0-18.0) g/dL Hct (35.0-51.0) % MCV (80.0-94.0) fl MCH (27.0-31.0) pg MCHC (33.0-37.0) g/dL RDW (11.5-14.5) % Plt Count (130-400) K/uL Neutrophils % (Manual) (42-75) % Lymphocytes % (Manual) (20-50) % Monocytes % (Manual) (0-10) % Platelet Estimate (NORMAL) Large Platelets Poikilocytosis (manual Anisocytosis (manual) Tear Drop Cells Ovalocytes PT 12.7 H (9.6-11.2) SECONDS INR 1.22 H (0.92-1.08) APTT 33.9 H D (23.3-32.5) SECONDS pCO2 (35-45) mm/Hg pO2 (80-100) mm/Hg HCO3 (21-28) mmol/L ABG pH (7.35-7.45) ABG Total CO2 (22-28) mmol/L ABG O2 Saturation (95-98) % ABG O2 Content (15-23) ML/dL ABG Base Excess (-2.0-3.0) mmol/L ABG Hemoglobin (11.7-17.4) g/dL ABG Carboxyhemoglobin (0.5-1.5) % POC ABG HHb (Measured) (0.0-5.0) % ABG Methemoglobin (0.0-3.0) % ABG O2 Capacity (16-24) mL/dL Emmanuel Test A-a O2 Difference mm/Hg Hgb O2 Saturation (95.0-98.0) % Vent Mode Mechanical Rate FiO2 % Tidal Volume PEEP Crit Value Called To Crit Value Called By Crit Value Read Back Blood Gas Notified Time Sodium 140 (132-148) mmol/l Potassium 4.8 (3.6-5.0) MMOL/L Chloride 103 (98-107) mmol/L Carbon Dioxide 24 (22-30) mmol/L Anion Gap 19 (10-20) BUN 44 H (9-20) mg/dl Creatinine 1.5 (0.8-1.5) mg/dL Est GFR ( Amer) 56 Est GFR (Non-Af Amer) 46 POC Glucose (mg/dL) (65-110) mg/dL Random Glucose 114 H (75-110) mg/dL Lactic Acid 5.1 H* (0.7-2.1) MMOL/L Calcium 8.1 L (8.4-10.2) mg/dL Iron (49-181) ug/dL TIBC (250-450) ug/dL % Saturation (20-55) % Total Bilirubin 0.6 (0.2-1.3) mg/dl AST 454 H D (17-59) U/L ALT 323 H D (21-72) U/L Alkaline Phosphatase 102 (38-126) U/L Troponin I 0.0530 (0.00-0.120) ng/mL Total Protein 5.1 L (6.3-8.2) G/DL Albumin 2.3 L (3.5-5.0) g/dL Globulin 2.7 (2.2-3.9) gm/dL Albumin/Globulin Ratio 0.9 L (1.0-2.1) 11/24/16 11/24/16 11/24/16 Range/Units 05:30 05:04 04:00 WBC 20.8 H (4.8-10.8) K/uL RBC 2.98 L (4.40-5.90) Mil/uL Hgb 8.6 L (12.0-18.0) g/dL Hct 28.7 L (35.0-51.0) % MCV 96.4 H D (80.0-94.0) fl MCH 28.8 (27.0-31.0) pg MCHC 29.8 L (33.0-37.0) g/dL RDW 17.3 H (11.5-14.5) % Plt Count 275 (130-400) K/uL Neutrophils % (Manual) (42-75) % Lymphocytes % (Manual) (20-50) % Monocytes % (Manual) (0-10) % Platelet Estimate (NORMAL) Large Platelets Poikilocytosis (manual Anisocytosis (manual) Tear Drop Cells Ovalocytes PT (9.6-11.2) SECONDS INR (0.92-1.08) APTT (23.3-32.5) SECONDS pCO2 90 H* (35-45) mm/Hg pO2 304 H (80-100) mm/Hg HCO3 25.9 (21-28) mmol/L ABG pH 7.15 L* (7.35-7.45) ABG Total CO2 34.2 H (22-28) mmol/L ABG O2 Saturation 100.4 H (95-98) % ABG O2 Content 13.4 L (15-23) ML/dL ABG Base Excess 1.2 (-2.0-3.0) mmol/L ABG Hemoglobin 9.2 L (11.7-17.4) g/dL ABG Carboxyhemoglobin 1.6 H (0.5-1.5) % POC ABG HHb (Measured) -0.4 L (0.0-5.0) % ABG Methemoglobin 1.2 (0.0-3.0) % ABG O2 Capacity 13.3 L (16-24) mL/dL Emmanuel Test Yes A-a O2 Difference 297.0 mm/Hg Hgb O2 Saturation 97.5 (95.0-98.0) % Vent Mode A/c Mechanical Rate 12 FiO2 100.0 % Tidal Volume 500 PEEP 5 Crit Value Called To Olman davis md Crit Value Called By 333 Crit Value Read Back Y Blood Gas Notified Time 540 Sodium (132-148) mmol/l Potassium (3.6-5.0) MMOL/L Chloride (98-107) mmol/L Carbon Dioxide (22-30) mmol/L Anion Gap (10-20) BUN (9-20) mg/dl Creatinine (0.8-1.5) mg/dL Est GFR ( Amer) Est GFR (Non-Af Amer) POC Glucose (mg/dL) 129 H (65-110) mg/dL Random Glucose (75-110) mg/dL Lactic Acid (0.7-2.1) MMOL/L Calcium (8.4-10.2) mg/dL Iron (49-181) ug/dL TIBC (250-450) ug/dL % Saturation (20-55) % Total Bilirubin (0.2-1.3) mg/dl AST (17-59) U/L ALT (21-72) U/L Alkaline Phosphatase (38-126) U/L Troponin I (0.00-0.120) ng/mL Total Protein (6.3-8.2) G/DL Albumin (3.5-5.0) g/dL Globulin (2.2-3.9) gm/dL Albumin/Globulin Ratio (1.0-2.1) 11/23/16 11/23/16 11/23/16 Range/Units 22:38 22:14 22:00 WBC (4.8-10.8) K/uL RBC (4.40-5.90) Mil/uL Hgb (12.0-18.0) g/dL Hct (35.0-51.0) % MCV (80.0-94.0) fl MCH (27.0-31.0) pg MCHC (33.0-37.0) g/dL RDW (11.5-14.5) % Plt Count (130-400) K/uL Neutrophils % (Manual) (42-75) % Lymphocytes % (Manual) (20-50) % Monocytes % (Manual) (0-10) % Platelet Estimate (NORMAL) Large Platelets Poikilocytosis (manual Anisocytosis (manual) Tear Drop Cells Ovalocytes PT (9.6-11.2) SECONDS INR (0.92-1.08) APTT (23.3-32.5) SECONDS pCO2 63 H (35-45) mm/Hg pO2 78 L (80-100) mm/Hg HCO3 25.4 (21-28) mmol/L ABG pH 7.26 L (7.35-7.45) ABG Total CO2 30.2 H (22-28) mmol/L ABG O2 Saturation 98.0 (95-98) % ABG O2 Content 11.6 L (15-23) ML/dL ABG Base Excess 0.6 (-2.0-3.0) mmol/L ABG Hemoglobin 8.6 L (11.7-17.4) g/dL ABG Carboxyhemoglobin 2.0 H (0.5-1.5) % POC ABG HHb (Measured) 1.9 (0.0-5.0) % ABG Methemoglobin 1.5 (0.0-3.0) % ABG O2 Capacity 11.8 L (16-24) mL/dL Emmanuel Test Yes A-a O2 Difference 71.0 mm/Hg Hgb O2 Saturation 94.6 L (95.0-98.0) % Vent Mode Mechanical Rate FiO2 32.0 % Tidal Volume PEEP Crit Value Called To Crit Value Called By Crit Value Read Back Blood Gas Notified Time Sodium (132-148) mmol/l Potassium (3.6-5.0) MMOL/L Chloride (98-107) mmol/L Carbon Dioxide (22-30) mmol/L Anion Gap (10-20) BUN (9-20) mg/dl Creatinine (0.8-1.5) mg/dL Est GFR ( Amer) Est GFR (Non-Af Amer) POC Glucose (mg/dL) 101 101 (65-110) mg/dL Random Glucose (75-110) mg/dL Lactic Acid (0.7-2.1) MMOL/L Calcium (8.4-10.2) mg/dL Iron (49-181) ug/dL TIBC (250-450) ug/dL % Saturation (20-55) % Total Bilirubin (0.2-1.3) mg/dl AST (17-59) U/L ALT (21-72) U/L Alkaline Phosphatase (38-126) U/L Troponin I (0.00-0.120) ng/mL Total Protein (6.3-8.2) G/DL Albumin (3.5-5.0) g/dL Globulin (2.2-3.9) gm/dL Albumin/Globulin Ratio (1.0-2.1) 0511/23/16 11/23/16 Range/Units 16:06 10:48 08:15 WBC (4.8-10.8) K/uL RBC (4.40-5.90) Mil/uL Hgb (12.0-18.0) g/dL Hct (35.0-51.0) % MCV (80.0-94.0) fl MCH (27.0-31.0) pg MCHC (33.0-37.0) g/dL RDW (11.5-14.5) % Plt Count (130-400) K/uL Neutrophils % (Manual) (42-75) % Lymphocytes % (Manual) (20-50) % Monocytes % (Manual) (0-10) % Platelet Estimate (NORMAL) Large Platelets Poikilocytosis (manual Anisocytosis (manual) Tear Drop Cells Ovalocytes PT (9.6-11.2) SECONDS INR (0.92-1.08) APTT (23.3-32.5) SECONDS pCO2 (35-45) mm/Hg pO2 (80-100) mm/Hg HCO3 (21-28) mmol/L ABG pH (7.35-7.45) ABG Total CO2 (22-28) mmol/L ABG O2 Saturation (95-98) % ABG O2 Content (15-23) ML/dL ABG Base Excess (-2.0-3.0) mmol/L ABG Hemoglobin (11.7-17.4) g/dL ABG Carboxyhemoglobin (0.5-1.5) % POC ABG HHb (Measured) (0.0-5.0) % ABG Methemoglobin (0.0-3.0) % ABG O2 Capacity (16-24) mL/dL Emmanuel Test A-a O2 Difference mm/Hg Hgb O2 Saturation (95.0-98.0) % Vent Mode Mechanical Rate FiO2 % Tidal Volume PEEP Crit Value Called To Crit Value Called By Crit Value Read Back Blood Gas Notified Time Sodium (132-148) mmol/l Potassium (3.6-5.0) MMOL/L Chloride (98-107) mmol/L Carbon Dioxide (22-30) mmol/L Anion Gap (10-20) BUN (9-20) mg/dl Creatinine (0.8-1.5) mg/dL Est GFR ( Amer) Est GFR (Non-Af Amer) POC Glucose (mg/dL) 140 H 168 H (65-110) mg/dL Random Glucose (75-110) mg/dL Lactic Acid (0.7-2.1) MMOL/L Calcium (8.4-10.2) mg/dL Iron 43 L (49-181) ug/dL TIBC 201 L (250-450) ug/dL % Saturation 21 (20-55) % Total Bilirubin (0.2-1.3) mg/dl AST (17-59) U/L ALT (21-72) U/L Alkaline Phosphatase (38-126) U/L Troponin I (0.00-0.120) ng/mL Total Protein (6.3-8.2) G/DL Albumin (3.5-5.0) g/dL Globulin (2.2-3.9) gm/dL Albumin/Globulin Ratio (1.0-2.1) 11/23/16 Range/Units 05:45 WBC (4.8-10.8) K/uL RBC (4.40-5.90) Mil/uL Hgb (12.0-18.0) g/dL Hct (35.0-51.0) % MCV (80.0-94.0) fl MCH (27.0-31.0) pg MCHC (33.0-37.0) g/dL RDW (11.5-14.5) % Plt Count (130-400) K/uL Neutrophils % (Manual) 97 H (42-75) % Lymphocytes % (Manual) 2 L (20-50) % Monocytes % (Manual) 1 (0-10) % Platelet Estimate Normal (NORMAL) Large Platelets Present Poikilocytosis (manual Slight Anisocytosis (manual) Slight Tear Drop Cells Slight Ovalocytes Slight PT (9.6-11.2) SECONDS INR (0.92-1.08) APTT (23.3-32.5) SECONDS pCO2 (35-45) mm/Hg pO2 (80-100) mm/Hg HCO3 (21-28) mmol/L ABG pH (7.35-7.45) ABG Total CO2 (22-28) mmol/L ABG O2 Saturation (95-98) % ABG O2 Content (15-23) ML/dL ABG Base Excess (-2.0-3.0) mmol/L ABG Hemoglobin (11.7-17.4) g/dL ABG Carboxyhemoglobin (0.5-1.5) % POC ABG HHb (Measured) (0.0-5.0) % ABG Methemoglobin (0.0-3.0) % ABG O2 Capacity (16-24) mL/dL Emmanuel Test A-a O2 Difference mm/Hg Hgb O2 Saturation (95.0-98.0) % Vent Mode Mechanical Rate FiO2 % Tidal Volume PEEP Crit Value Called To Crit Value Called By Crit Value Read Back Blood Gas Notified Time Sodium (132-148) mmol/l Potassium (3.6-5.0) MMOL/L Chloride (98-107) mmol/L Carbon Dioxide (22-30) mmol/L Anion Gap (10-20) BUN (9-20) mg/dl Creatinine (0.8-1.5) mg/dL Est GFR ( Amer) Est GFR (Non-Af Amer) POC Glucose (mg/dL) (65-110) mg/dL Random Glucose (75-110) mg/dL Lactic Acid (0.7-2.1) MMOL/L Calcium (8.4-10.2) mg/dL Iron (49-181) ug/dL TIBC (250-450) ug/dL % Saturation (20-55) % Total Bilirubin (0.2-1.3) mg/dl AST (17-59) U/L ALT (21-72) U/L Alkaline Phosphatase (38-126) U/L Troponin I (0.00-0.120) ng/mL Total Protein (6.3-8.2) G/DL Albumin (3.5-5.0) g/dL Globulin (2.2-3.9) gm/dL Albumin/Globulin Ratio (1.0-2.1) Laboratory Results - last 24 hr 11/23/16 11/23/16 11/23/16 05:45 08:15 10:48 WBC RBC Hgb Hct MCV MCH MCHC RDW Plt Count Neutrophils % (Manual) 97 H Lymphocytes % (Manual) 2 L Monocytes % (Manual) 1 Platelet Estimate Normal Large Platelets Present Poikilocytosis (manual Slight Anisocytosis (manual) Slight Tear Drop Cells Slight Ovalocytes Slight PT INR APTT pCO2 pO2 HCO3 ABG pH ABG Total CO2 ABG O2 Saturation ABG O2 Content ABG Base Excess ABG Hemoglobin ABG Carboxyhemoglobin POC ABG HHb (Measured) ABG Methemoglobin ABG O2 Capacity Emmanuel Test A-a O2 Difference Hgb O2 Saturation Vent Mode Mechanical Rate FiO2 Tidal Volume PEEP Crit Value Called To Crit Value Called By Crit Value Read Back Blood Gas Notified Time Sodium Potassium Chloride Carbon Dioxide Anion Gap BUN Creatinine Est GFR ( Amer) Est GFR (Non-Af Amer) POC Glucose (mg/dL) 168 H Random Glucose Lactic Acid Calcium Iron 43 L TIBC 201 L % Saturation 21 Total Bilirubin AST ALT Alkaline Phosphatase Troponin I Total Protein Albumin Globulin Albumin/Globulin Ratio 11/23/16 11/23/16 11/23/16 16:06 22:00 22:14 WBC RBC Hgb Hct MCV MCH MCHC RDW Plt Count Neutrophils % (Manual) Lymphocytes % (Manual) Monocytes % (Manual) Platelet Estimate Large Platelets Poikilocytosis (manual Anisocytosis (manual) Tear Drop Cells Ovalocytes PT INR APTT pCO2 pO2 HCO3 ABG pH ABG Total CO2 ABG O2 Saturation ABG O2 Content ABG Base Excess ABG Hemoglobin ABG Carboxyhemoglobin POC ABG HHb (Measured) ABG Methemoglobin ABG O2 Capacity Emmanuel Test A-a O2 Difference Hgb O2 Saturation Vent Mode Mechanical Rate FiO2 Tidal Volume PEEP Crit Value Called To Crit Value Called By Crit Value Read Back Blood Gas Notified Time Sodium Potassium Chloride Carbon Dioxide Anion Gap BUN Creatinine Est GFR ( Amer) Est GFR (Non-Af Amer) POC Glucose (mg/dL) 140 H 101 101 Random Glucose Lactic Acid Calcium Iron TIBC % Saturation Total Bilirubin AST ALT Alkaline Phosphatase Troponin I Total Protein Albumin Globulin Albumin/Globulin Ratio 11/23/16 11/24/16 11/24/16 22:38 04:00 05:04 WBC 20.8 H RBC 2.98 L Hgb 8.6 L Hct 28.7 L MCV 96.4 H D MCH 28.8 MCHC 29.8 L RDW 17.3 H Plt Count 275 Neutrophils % (Manual) Lymphocytes % (Manual) Monocytes % (Manual) Platelet Estimate Large Platelets Poikilocytosis (manual Anisocytosis (manual) Tear Drop Cells Ovalocytes PT INR APTT pCO2 63 H pO2 78 L HCO3 25.4 ABG pH 7.26 L ABG Total CO2 30.2 H ABG O2 Saturation 98.0 ABG O2 Content 11.6 L ABG Base Excess 0.6 ABG Hemoglobin 8.6 L ABG Carboxyhemoglobin 2.0 H POC ABG HHb (Measured) 1.9 ABG Methemoglobin 1.5 ABG O2 Capacity 11.8 L Emmanuel Test Yes A-a O2 Difference 71.0 Hgb O2 Saturation 94.6 L Vent Mode Mechanical Rate FiO2 32.0 Tidal Volume PEEP Crit Value Called To Crit Value Called By Crit Value Read Back Blood Gas Notified Time Sodium Potassium Chloride Carbon Dioxide Anion Gap BUN Creatinine Est GFR ( Amer) Est GFR (Non-Af Amer) POC Glucose (mg/dL) 129 H Random Glucose Lactic Acid Calcium Iron TIBC % Saturation Total Bilirubin AST ALT Alkaline Phosphatase Troponin I Total Protein Albumin Globulin Albumin/Globulin Ratio 11/24/16 11/24/16 11/24/16 05:30 06:00 06:00 WBC RBC Hgb Hct MCV MCH MCHC RDW Plt Count Neutrophils % (Manual) Lymphocytes % (Manual) Monocytes % (Manual) Platelet Estimate Large Platelets Poikilocytosis (manual Anisocytosis (manual) Tear Drop Cells Ovalocytes PT 12.7 H INR 1.22 H APTT 33.9 H D pCO2 90 H* pO2 304 H HCO3 25.9 ABG pH 7.15 L* ABG Total CO2 34.2 H ABG O2 Saturation 100.4 H ABG O2 Content 13.4 L ABG Base Excess 1.2 ABG Hemoglobin 9.2 L ABG Carboxyhemoglobin 1.6 H POC ABG HHb (Measured) -0.4 L ABG Methemoglobin 1.2 ABG O2 Capacity 13.3 L Emmanuel Test Yes A-a O2 Difference 297.0 Hgb O2 Saturation 97.5 Vent Mode A/c Mechanical Rate 12 FiO2 100.0 Tidal Volume 500 PEEP 5 Crit Value Called To Olman davis md Crit Value Called By 333 Crit Value Read Back Y Blood Gas Notified Time 540 Sodium 140 Potassium 4.8 Chloride 103 Carbon Dioxide 24 Anion Gap 19 BUN 44 H Creatinine 1.5 Est GFR ( Amer) 56 Est GFR (Non-Af Amer) 46 POC Glucose (mg/dL) Random Glucose 114 H Lactic Acid Calcium 8.1 L Iron TIBC % Saturation Total Bilirubin 0.6 AST 454 H D ALT 323 H D Alkaline Phosphatase 102 Troponin I 0.0530 Total Protein 5.1 L Albumin 2.3 L Globulin 2.7 Albumin/Globulin Ratio 0.9 L 11/24/16 06:05 WBC RBC Hgb Hct MCV MCH MCHC RDW Plt Count Neutrophils % (Manual) Lymphocytes % (Manual) Monocytes % (Manual) Platelet Estimate Large Platelets Poikilocytosis (manual Anisocytosis (manual) Tear Drop Cells Ovalocytes PT INR APTT pCO2 pO2 HCO3 ABG pH ABG Total CO2 ABG O2 Saturation ABG O2 Content ABG Base Excess ABG Hemoglobin ABG Carboxyhemoglobin POC ABG HHb (Measured) ABG Methemoglobin ABG O2 Capacity Emmanuel Test A-a O2 Difference Hgb O2 Saturation Vent Mode Mechanical Rate FiO2 Tidal Volume PEEP Crit Value Called To Crit Value Called By Crit Value Read Back Blood Gas Notified Time Sodium Potassium Chloride Carbon Dioxide Anion Gap BUN Creatinine Est GFR ( Amer) Est GFR (Non-Af Amer) POC Glucose (mg/dL) Random Glucose Lactic Acid 5.1 H* Calcium Iron TIBC % Saturation Total Bilirubin AST ALT Alkaline Phosphatase Troponin I Total Protein Albumin Globulin Albumin/Globulin Ratio Fingerstick Blood Sugar Results: 101 Review of Systems - Review of Systems Systems not reviewed;Unavailable: Intubated - EENT Ears: UNREMARKABLE Nose/Mouth/Throat: Other, UNREMARKABLE (tube looks in place) - Cardiovascular Cardiovascular: As Per HPI, Rapid Heart Rate - Respiratory Respiratory: Cough, Wheezing, Chest Congestion - Gastrointestinal Gastrointestinal: UNREMARKABLE - Musculoskeletal Musculoskeletal: UNREMARKABLE - Integumentary Integumentary: UNREMARKABLE - Neurological Neurological: Other (GAG reflex , corneal reflex, present, responsive to pain) Critical Care Progress Note - Ventilator Checklist Head of Bed 30 Degrees: Yes Daily Sedation Vacation: Yes Daily Assessment of Readiness to Wean: No Daily Spontaneous Breathing Trial: No PUD Prophalyxis: Yes DVT Prophylaxis: Yes - Vent Settings MODE:: PRVC TIDAL VOLUME:: 450 RESP RATE:: 16 FIO2:: 60 PEEP:: 5 - Extremities/Vascular Does the Patient have a Central Venous Catheter?: Yes - Nutrition Nutrition: Nutrition Category Date Time Status NPO Diet [DIET] Diets 11/23/16 Breakfast Active Assessment/Plan - Assessment and Plan (Free Text) Assessment: Pt status code blue intubated with downtime approx. 15 to 20 min. PT was with hypercapneic respiratory failure with thick mucus secretions. PT regained pulse and has been responsive thus far s/p intubation but hemodynamically unstable and started on levophed. Plan: admit to MICU 1) Hypercapneic respiratory failure- - pt is intubated with repeat abg to be done - vent settings tv 450, peep 5, 16, 60% 2) hypotension possible sepsis and septic shock pt started on levophed - broad spectrum abx started - ns fluid bolus started - elavted liver function test and acute renal failure 3) COPD- pt being treated with duoneb/mucomyst, steroids and abx. - Pulmonary on board with Dr. Stephens 4) a fib- currently under control 5) GI and DVT prophylaxis - Date & Time Date: 11/24/16 Time: 09:16
[2016-11-24] MEDS: Silver Sulfadiazine 1% CREAM (50 gm) TOP SCH ×2 (08:56→20:26)
[2016-11-24] MEDS ORDERED: Vancomycin 1 g Inj IVPB SCH (09:00)
[2016-11-24] MEDS ORDERED: Piperacillin/Tazobact 4.5 GM in Sodium Chloride 0.9% 100 ML IVPB SCH (09:00)
[2016-11-24 09:09] LABS: ABG ALLEN TEST YES; ABG MECHANICAL RATE 16; ARTERIAL BLOOD GAS HCO3 24.6 mmol/L (21-28); ARTERIAL BLOOD GAS MODE PC/AC; ARTERIAL BLOOD GAS O2 CAPACITY 12.3 mL/dL (16-24); ARTERIAL BLOOD GAS O2 CONTENT 12.3 ML/dL (15-23); ARTERIAL BLOOD GAS PH 7.31 (7.35-7.45); ARTERIAL BLOOD GAS PO2 175 mm/Hg (80-100); ARTERIAL BLOOD HGB O2 SAT 97.4 % (95.0-98.0); ATERIAL BLOOD GAS PEEP 5; CARBOXYHEMOGLOBIN 1.6 % (0.5-1.5); HHB -0.3 % (0.0-5.0); METHEMOGLOBIN 1.3 % (0.0-3.0)
--- NOTE | 2016-11-24 09:18 | CP.PCM.CON ---
History of Present Illness - History of Present Illness History of Present Illness: This 71 year old male with COPD, CAD and diabetes was admitted through the emergency room because of productive cough, fever and shortness of breath. Symptoms began the day prior to presentation and did not subside. A chest x-ray done in the ER did show some elevation of the left hemidiaphragm with suggestion of possible retrocardiac density, not much changed from the last CXR done prior to discharge on his last admission. Admitting diagnosis was COPD exacerbation with acute bronchitis. VBG done in the ER did show a normal pH and good CO2 levels. He was started on aerosol therapy, corticosteroids and antibiotics and appeared stable on that regimen. Past Patient History - Infectious Disease Hx of Infectious Diseases: None - Tetanus Immunizations Tetanus Immunization: Unknown - Past Medical History & Family History Past Medical History?: Yes - Past Social History Smoking Status: Former Smoker - CARDIAC Hx Atrial Fibrillation: Yes Hx Cardia Arrhythmia: Yes Hx Congestive Heart Failure: Yes Hx Hypercholesterolemia: Yes Hx Hypertension: Yes Hx Peripheral Edema: Yes - PULMONARY Hx Asthma: Yes Hx Bronchitis: Yes Hx Chronic Obstructive Pulmonary Disease (COPD): Yes Hx Emphysema: Yes Hx Pneumonia: Yes - NEUROLOGICAL Hx Neurological Disorder: No - HEENT Hx Cataracts: Yes (right eye) - RENAL Hx Chronic Kidney Disease: No - ENDOCRINE/METABOLIC Hx Hypothyroidism: No - HEMATOLOGICAL/ONCOLOGICAL Hx Anemia: Yes Hx Human Immunodeficiency Virus (HIV): No - INTEGUMENTARY Hx Psoriasis: Yes - MUSCULOSKELETAL/RHEUMATOLOGICAL Hx Arthritis: Yes Hx Rheumatoid Arthritis: No - GASTROINTESTINAL Hx Diverticulitis: Yes - GENITOURINARY/GYNECOLOGICAL Hx Prostate Problems: Yes (BPH) - PSYCHIATRIC Hx Anxiety: Yes - SURGICAL HISTORY Hx Coronary Artery Bypass Graft: Yes (1994) Hx Coronary Stent: Yes (2000) - ANESTHESIA Hx Anesthesia: Yes Hx Anesthesia Reactions: No Hx Malignant Hyperthermia: No Has any member of the family had a problem w/ anesthesia?: No Meds Allergies/Adverse Reactions: Allergies Allergy/AdvReac Type Severity Reaction Status Date / Time gemfibrozil [From Lopid] Allergy RASH Verified 11/22/16 07:55 morphine Allergy SHORTNESS Verified 11/22/16 07:55 OF BREATH - Medications Medications: Current Medications Acetaminophen (Tylenol 650mg/20.3ml Solution Ud) 650 mg PEG Q4 PRN PRN Reason: Pain, moderate (4-7) Acetaminophen (Tylenol 650mg/20.3ml Solution Ud) 650 mg PEG Q4 PRN PRN Reason: Fever >100.4 F Acetylcysteine (Mucomyst 10% 4ml) 2 ml IH RBID [facility] Last Admin: 11/23/16 19:43 Dose: 2 ml Albuterol Sulfate (Albuterol 0.083% Inhal Mary (2.5 Mg/3 Ml) Ud) 2.5 mg INH RQ4 PRN PRN Reason: Shortness of Breath Last Admin: 11/23/16 03:48 Dose: 2.5 mg Albuterol/Ipratropium (Duoneb 3 Mg/0.5 Mg (3 Ml) Ud) 3 ml INH RQ6 [facility] Amiodarone HCl (Cordarone) 200 mg PEG DAILY [facility] Last Admin: 11/24/16 08:51 Dose: 200 mg Aspirin (Aspirin Chewable) 81 mg PEG DAILY [facility] Last Admin: 11/24/16 08:48 Dose: 81 mg Collagenase (Santyl) 1 applic TOP 0900,2100 [facility] Last Admin: 11/24/16 08:55 Dose: 1 applic Dimethicone (Proshield Plus Skin Protectant) 1 applic TOP 0900,2100 [facility] Last Admin: 11/24/16 08:55 Dose: 1 applic Ferrous Sulfate (Feosol Liq) 450 mg PEG DAILY [facility] Last Admin: 11/24/16 08:52 Dose: 450 mg Fluticasone Propionate (Flonase) 2 spr JAKUB DAILY PRN PRN Reason: ALLERGY SYMPTOMS Gabapentin (Neurontin) 400 mg PEG BID [facility] Last Admin: 11/24/16 08:54 Dose: 400 mg Gabapentin (Neurontin) 400 mg PEG HS [facility] Last Admin: 11/23/16 22:01 Dose: 400 mg Guaifenesin (Robitussin) 200 mg PEG QID [facility] Last Admin: 11/24/16 08:48 Dose: 200 mg Home Med (Amino Acid/Protein/Vit C/Zinc [Prosource Billy Protein Liquid]) 30 ml PEG TID [facility] Vancomycin HCl 1 gm/ Sodium (Chloride) 250 mls @ 250 mls/hr IVPB DAILY [facility] Dextrose/Sodium Chloride (Dextrose 5%/0.45% Ns 1000 Ml) 1,000 mls @ 80 mls/hr IV .[id number] [facility] Stop: 11/24/16 23:29 Last Admin: 11/23/16 23:55 Dose: 80 mls/hr Propofol (Diprivan) 1,000 mg in 100 mls @ 1.783 mls/hr IV .Q24H [facility]; 5 MCG/KG/ MIN PRN Reason: Protocol Stop: 11/25/16 06:03 Norepinephrine Bitartrate 4 mg (/ Dextrose) 254 mls @ 38.1 mls/hr IV .Q6H40M [facility]; 10 MCG/MIN PRN Reason: Protocol Last Titration: 11/24/16 07:32 Dose: 7.5 mcg/min, 28.57 mls/hr Sodium Chloride (Sodium Chloride 0.9%) 1,000 mls @ 125 mls/hr IV .Q8H [facility] Stop: 11/25/16 07:01 Last Admin: 11/24/16 08:57 Dose: 125 mls/hr Piperacillin Sod/Tazobactam (Sod 4.5 gm/ Sodium Chloride) 100 mls @ 100 mls/hr IVPB Q8 [facility] Megestrol Acetate (Megace) 400 mg PEG DAILY [facility] Last Admin: 11/24/16 08:54 Dose: 400 mg Metoclopramide HCl (Reglan) 10 mg PEG HS [facility] Last Admin: 11/23/16 22:02 Dose: 10 mg Metoprolol Tartrate (Lopressor) 12.5 mg PEG Q12 [facility] Last Admin: 11/23/16 22:00 Dose: 12.5 mg Ondansetron HCl (Zofran Odt) 4 mg PEG Q8 [facility] Last Admin: 11/24/16 01:15 Dose: 4 mg Pantoprazole Sodium (Protonix Susp) 40 mg PEG DAILY [facility] Last Admin: 11/24/16 08:55 Dose: 40 mg Silver Sulfadiazine (Silvadene 1% 50 Gm) 1 applic TOP 0900,2100 [facility] Last Admin: 11/24/16 08:56 Dose: 1 applic Sucralfate (Carafate Oral Susp) 1 gm PEG TID [facility] Last Admin: 11/23/16 16:22 Dose: 1 gm Tramadol HCl (Ultram) 50 mg GT Q6 PRN PRN Reason: Pain, severe (8-10) Last Admin: 11/23/16 09:20 Dose: 50 mg Results - Vital Signs Recent Vital Signs: Last Vital Signs Temp 99.3 F 11/24/16 08:00 Pulse 110 H 11/24/16 08:51 Resp 25 H 11/24/16 08:00 BP 109/75 11/24/16 08:51 Pulse Ox 100 11/24/16 08:00 - Labs Result Diagrams: 11/25/16 04:30 11/25/16 04:30 Labs: Laboratory Results - last 24 hr 11/23/16 11/23/16 11/23/16 10:48 16:06 22:00 WBC RBC Hgb Hct MCV MCH MCHC RDW Plt Count PT INR APTT pCO2 pO2 HCO3 ABG pH ABG Total CO2 ABG O2 Saturation ABG O2 Content ABG Base Excess ABG Hemoglobin ABG Carboxyhemoglobin POC ABG HHb (Measured) ABG Methemoglobin ABG O2 Capacity Emmanuel Test A-a O2 Difference Hgb O2 Saturation Vent Mode Mechanical Rate FiO2 Tidal Volume PEEP Crit Value Called To Crit Value Called By Crit Value Read Back Blood Gas Notified Time Sodium Potassium Chloride Carbon Dioxide Anion Gap BUN Creatinine Est GFR ( Amer) Est GFR (Non-Af Amer) POC Glucose (mg/dL) 168 H 140 H 101 Random Glucose Lactic Acid Calcium Total Bilirubin AST ALT Alkaline Phosphatase Troponin I Total Protein Albumin Globulin Albumin/Globulin Ratio 11/23/16 11/23/16 11/24/16 22:14 22:38 04:00 WBC 20.8 H RBC 2.98 L Hgb 8.6 L Hct 28.7 L MCV 96.4 H D MCH 28.8 MCHC 29.8 L RDW 17.3 H Plt Count 275 PT INR APTT pCO2 63 H pO2 78 L HCO3 25.4 ABG pH 7.26 L ABG Total CO2 30.2 H ABG O2 Saturation 98.0 ABG O2 Content 11.6 L ABG Base Excess 0.6 ABG Hemoglobin 8.6 L ABG Carboxyhemoglobin 2.0 H POC ABG HHb (Measured) 1.9 ABG Methemoglobin 1.5 ABG O2 Capacity 11.8 L Emmanuel Test Yes A-a O2 Difference 71.0 Hgb O2 Saturation 94.6 L Vent Mode Mechanical Rate FiO2 32.0 Tidal Volume PEEP Crit Value Called To Crit Value Called By Crit Value Read Back Blood Gas Notified Time Sodium Potassium Chloride Carbon Dioxide Anion Gap BUN Creatinine Est GFR ( Amer) Est GFR (Non-Af Amer) POC Glucose (mg/dL) 101 Random Glucose Lactic Acid Calcium Total Bilirubin AST ALT Alkaline Phosphatase Troponin I Total Protein Albumin Globulin Albumin/Globulin Ratio 11/24/16 11/24/16 11/24/16 05:04 05:30 06:00 WBC RBC Hgb Hct MCV MCH MCHC RDW Plt Count PT 12.7 H INR 1.22 H APTT 33.9 H D pCO2 90 H* pO2 304 H HCO3 25.9 ABG pH 7.15 L* ABG Total CO2 34.2 H ABG O2 Saturation 100.4 H ABG O2 Content 13.4 L ABG Base Excess 1.2 ABG Hemoglobin 9.2 L ABG Carboxyhemoglobin 1.6 H POC ABG HHb (Measured) -0.4 L ABG Methemoglobin 1.2 ABG O2 Capacity 13.3 L Emmanuel Test Yes A-a O2 Difference 297.0 Hgb O2 Saturation 97.5 Vent Mode A/c Mechanical Rate 12 FiO2 100.0 Tidal Volume 500 PEEP 5 Crit Value Called To Olman davis md Crit Value Called By 333 Crit Value Read Back Y Blood Gas Notified Time 540 Sodium Potassium Chloride Carbon Dioxide Anion Gap BUN Creatinine Est GFR ( Amer) Est GFR (Non-Af Amer) POC Glucose (mg/dL) 129 H Random Glucose Lactic Acid Calcium Total Bilirubin AST ALT Alkaline Phosphatase Troponin I Total Protein Albumin Globulin Albumin/Globulin Ratio 11/24/16 11/24/16 11/24/16 06:00 06:05 09:00 WBC RBC Hgb Hct MCV MCH MCHC RDW Plt Count PT INR APTT pCO2 52 H pO2 175 H HCO3 24.6 ABG pH 7.31 L ABG Total CO2 27.8 ABG O2 Saturation 100.3 H ABG O2 Content 12.3 L ABG Base Excess -0.4 ABG Hemoglobin 8.7 L ABG Carboxyhemoglobin 1.6 H POC ABG HHb (Measured) -0.3 L ABG Methemoglobin 1.3 ABG O2 Capacity 12.3 L Emmanuel Test Yes A-a O2 Difference 152.0 Hgb O2 Saturation 97.4 Vent Mode Pc/ac Mechanical Rate 16 FiO2 55.0 Tidal Volume 500 PEEP 5 Crit Value Called To Crit Value Called By Crit Value Read Back Blood Gas Notified Time Sodium 140 Potassium 4.8 Chloride 103 Carbon Dioxide 24 Anion Gap 19 BUN 44 H Creatinine 1.5 Est GFR ( Amer) 56 Est GFR (Non-Af Amer) 46 POC Glucose (mg/dL) Random Glucose 114 H Lactic Acid 5.1 H* Calcium 8.1 L Total Bilirubin 0.6 AST 454 H D ALT 323 H D Alkaline Phosphatase 102 Troponin I 0.0530 Total Protein 5.1 L Albumin 2.3 L Globulin 2.7 Albumin/Globulin Ratio 0.9 L Assessment & Plan (1) Respiratory failure with hypercapnia Status: Acute Priority: High (2) Endotracheally intubated Status: Acute Priority: High (3) On mechanically assisted ventilation Status: Acute Priority: High (4) Pneumonia Status: Acute Priority: High (5) COPD exacerbation Status: Acute Priority: High - Assessment and Plan (Free Text) Assessment: Presently mechanically ventilated, unresponsive to verbal stimuli. Continue present ventilator settings, antibiotic therapy and aerosol therapy. Will add steroids to regimen and continue his maintenance regimen. Carotid ultrasound requested, current ABG reviewed. Sputum has been collected and sent to lab, initial report reviewed. Prognosis is poor, family aware. - Date & Time Date: 11/24/16 Time: 09:19
[2016-11-24] MEDS: Acetylcysteine 10% 4 ML IH SCH ×2 (09:20→20:15)
[2016-11-24] MEDS: Albuterol-Ipratrop 3 mg / 0.5 (3 ml) UD INH PRN (09:21)
--- NOTE | 2016-11-24 10:32 | RAD ---
HISTORY: placement of ET tube COMPARISON: Comparison chest dated 11/24/2016 at 0528 hours. FINDINGS: LUNGS: Interval placement right IJ central venous line with tip in the SVC. In situ ETT, tip of which lies approximately 4.25 cm above jung. . What may represent mild vascular congestive changes improved slightly. Mild bibasilar atelectasis with blunting both CP angles that could be due to small effusions and/or concomitant pleural thickening. Re- demonstrated are metallic surgical clips overlying the left upper medial chaz thorax - apex and mediastinum PLEURA: No pneumothorax apparent. CARDIOVASCULAR: Heart is enlarged. OSSEOUS STRUCTURES: No significant abnormalities. VISUALIZED UPPER ABDOMEN: Normal. OTHER FINDINGS: None. IMPRESSION: Interval placement right IJ central venous line with tip in the SVC. In situ ETT, tip of which lies approximately 4.25 cm above jung. . What may represent mild vascular congestive changes improved slightly. Mild bibasilar atelectasis with blunting both CP angles that could be due to small effusions and/or concomitant pleural thickening. Re- demonstrated are metallic surgical clips overlying the left upper medial chaz thorax - apex and mediastinum
--- NOTE | 2016-11-24 10:40 | RAD ---
HISTORY: SOB COMPARISON: Comparison made with chest radiograph dated 11/22/2016. FINDINGS: LUNGS: Mild vascular congestive changes are present. Small bilateral effusions also felt to be present as well. No change metallic clips overlying the left medial lung apex and left upper mediastinum PLEURA: No significant pleural effusion identified, no pneumothorax apparent. CARDIOVASCULAR: Heart remains enlarged. OSSEOUS STRUCTURES: No significant abnormalities. VISUALIZED UPPER ABDOMEN: Normal. OTHER FINDINGS: None. IMPRESSION: Mild vascular congestive changes are present. Small bilateral effusions also felt to be present as well.
--- NOTE | 2016-11-24 10:41 | RAD ---
HISTORY: pneumonia COMPARISON: Comparison made with prior chest radiograph dated 11/23/2016. FINDINGS: LUNGS: Interval placement ETT, tip of which lies approximately 3.65 cm above jung. Mild pulmonary vascular congestive changes. Small bilateral effusions. PLEURA: As above. No pneumothorax apparent. CARDIOVASCULAR: Heart remains enlarged. OSSEOUS STRUCTURES: No significant abnormalities. VISUALIZED UPPER ABDOMEN: In situ PEG tube. OTHER FINDINGS: None. IMPRESSION: Interval placement ETT, tip of which lies approximately 3.65 cm above jung. Mild pulmonary vascular congestive changes. Small bilateral effusions.
[2016-11-24] MEDS ORDERED: Albuterol-Ipratrop 3 mg / 0.5 (3 ml) UD ONE (11:40)
[2016-11-24] MEDS: Dextrose 5%/0.45% NS 1,000 ML IV SCH (12:25)
[2016-11-24] MEDS: Sucralfate 1 gm/10 ml Oral Susp UD PEG SCH ×3 (12:25→16:37)
[2016-11-24] MEDS: Acetaminophen 650mg/20.3ml solution UD PEG PRN (12:29)
[2016-11-24] MEDS: Dextrose 5%/0.9% NS 1,000 ML IV SCH ×2 (12:45→20:34)
--- NOTE | 2016-11-24 12:58 | CP.PCM.PN ---
Subjective - Date & Time of Evaluation Date of Evaluation: 11/24/16 Time of Evaluation: 09:30 - Subjective Subjective: EVENTS OF LAST NIGHT AND THIS AM NOTED PT ON VENTILATOR AND UNRESPONSIVE Objective - Vital Signs/Intake and Output Vital Signs (last 24 hours): Temp Pulse Resp BP Pulse Ox 100.5 F H 113 H 22 126/63 98 11/24/16 12:29 11/24/16 12:27 11/24/16 12:00 11/24/16 12:27 11/24/16 12:00 Intake and Output: 11/24/16 11/24/16 06:59 18:59 Intake Total 1004 Balance 1004 - Medications Medications: Current Medications Acetaminophen (Tylenol 650mg/20.3ml Solution Ud) 650 mg PEG Q4 PRN PRN Reason: Pain, moderate (4-7) Acetaminophen (Tylenol 650mg/20.3ml Solution Ud) 650 mg PEG Q4 PRN PRN Reason: Fever >100.4 F Last Admin: 11/24/16 12:29 Dose: 650 mg Acetylcysteine (Mucomyst 10% 4ml) 2 ml IH RBID [facility] Last Admin: 11/24/16 09:20 Dose: 2 ml Albuterol Sulfate (Albuterol 0.083% Inhal Mary (2.5 Mg/3 Ml) Ud) 2.5 mg INH RQ4 PRN PRN Reason: Shortness of Breath Last Admin: 11/23/16 03:48 Dose: 2.5 mg Albuterol/Ipratropium (Duoneb 3 Mg/0.5 Mg (3 Ml) Ud) 3 ml INH RQ6 [facility] Amiodarone HCl (Cordarone) 200 mg PEG DAILY [facility] Last Admin: 11/24/16 08:51 Dose: 200 mg Aspirin (Aspirin Chewable) 81 mg PEG DAILY [facility] Last Admin: 11/24/16 08:48 Dose: 81 mg Collagenase (Santyl) 1 applic TOP 0900,2100 [facility] Last Admin: 11/24/16 08:55 Dose: 1 applic Dimethicone (Proshield Plus Skin Protectant) 1 applic TOP 0900,2100 [facility] Last Admin: 11/24/16 08:55 Dose: 1 applic Ferrous Sulfate (Feosol Liq) 450 mg PEG DAILY [facility] Last Admin: 11/24/16 08:52 Dose: 450 mg Fluticasone Propionate (Flonase) 2 spr JAKUB DAILY PRN PRN Reason: ALLERGY SYMPTOMS Gabapentin (Neurontin) 400 mg PEG BID [facility] Last Admin: 11/24/16 08:54 Dose: 400 mg Gabapentin (Neurontin) 400 mg PEG HS [facility] Last Admin: 11/23/16 22:01 Dose: 400 mg Guaifenesin (Robitussin) 200 mg PEG QID [facility] Last Admin: 11/24/16 12:28 Dose: 200 mg Vancomycin HCl 1 gm/ Sodium (Chloride) 250 mls @ 250 mls/hr IVPB DAILY [facility] Last Admin: 11/24/16 12:30 Dose: 250 mls/hr Propofol (Diprivan) 1,000 mg in 100 mls @ 1.783 mls/hr IV .Q24H [facility]; 5 MCG/KG/ MIN PRN Reason: Protocol Stop: 11/25/16 06:03 Norepinephrine Bitartrate 4 mg (/ Dextrose) 254 mls @ 38.1 mls/hr IV .Q6H40M [facility]; 10 MCG/MIN PRN Reason: Protocol Last Titration: 11/24/16 12:26 Dose: 2.46 mcg/min, 9.4 mls/hr Dextrose/Sodium Chloride (Dextrose 5%/0.9% Ns 1000 Ml) 1,000 mls @ 125 mls/hr IV .Q8H [facility] Stop: 11/25/16 12:36 Megestrol Acetate (Megace) 400 mg PEG DAILY [facility] Last Admin: 11/24/16 08:54 Dose: 400 mg Metoclopramide HCl (Reglan) 10 mg PEG HS [facility] Last Admin: 11/23/16 22:02 Dose: 10 mg Metoprolol Tartrate (Lopressor) 12.5 mg PEG Q12 [facility] Last Admin: 11/24/16 12:27 Dose: 12.5 mg Ondansetron HCl (Zofran Odt) 4 mg PEG Q8 [facility] Last Admin: 11/24/16 12:31 Dose: 4 mg Pantoprazole Sodium (Protonix Susp) 40 mg PEG DAILY [facility] Last Admin: 11/24/16 08:55 Dose: 40 mg Silver Sulfadiazine (Silvadene 1% 50 Gm) 1 applic TOP 0900,2100 [facility] Last Admin: 11/24/16 08:56 Dose: 1 applic Sucralfate (Carafate Oral Susp) 1 gm PEG TID [facility] Last Admin: 11/24/16 12:25 Dose: 1 gm Tramadol HCl (Ultram) 50 mg GT Q6 PRN PRN Reason: Pain, severe (8-10) Last Admin: 11/23/16 09:20 Dose: 50 mg - Labs Labs: 11/24/16 04:00 11/24/16 06:00 PT 12.7 SECONDS (9.6-11.2) H 11/24/16 06:00 INR 1.22 (0.92-1.08) H 11/24/16 06:00 APTT 33.9 SECONDS (23.3-32.5) H D 11/24/16 06:00 - Respiratory Exam Respiratory Exam: Rhonchi - Cardiovascular Exam Cardiovascular Exam: Tachycardia, Irregular Rhythm, +S1, +S2 - Extremities Exam Extremities Exam: Normal Inspection - Additional Findings Additional findings: EVENTS OF LAST NIGHT AM AM REVIEWED AND WIRE ROLLER AND NURSING STAFF SPOKEN TO. PATIENT HAD APPARENT RESPIRATORY ARREST WITH HYPERCAPNEA AND ACIDOSIS AND CODE BLUE WAS CALLED AND DOWN TIME WAS ~ 15-20 MINUTES. PATIENT BECAME BRADYCARDIAC AND THEN REPORTED ASYSTOLIC AND WAS GIVEN 5 IV EPINEPHRINES AND INTUBATED AND ABGS IMPROVED AND PATIENT IS NOW IN ATRIAL FIBRILLATION ON THE MONITOR WITH RATE OF 105 TROPONIN NEGATIVE CXR REPORT NOTED Assessment and Plan - Assessment and Plan (Free Text) Assessment: S/P REPIRATORY ARREST WITH CODE BLUE NOW IN ATRIAL FIBRILLATION WITH RAPID RATE CAD COPD WITH RECURRENT PNEUMONIA PROGNOSIS IS VERY GUARDED Plan: PATIENT IS IN ICU ON MV, NOREPINEPHRINE, IV FLUIDS, AMIODARONE, METOPROLOL, ASPIRIN, ANTIBIOTICS FAMILY SPOKEN TO ABOUT VERY GUARDED PROGNOSIS
[2016-11-24] MEDS: Albuterol-Ipratrop 3 mg / 0.5 (3 ml) UD INH SCH ×2 (14:00→20:15)
[2016-11-24] MEDS: Cefepime 1 GM in Sodium Chloride 0.9% 100 ML IVPB SCH ×2 (16:38→19:59)
[2016-11-24 18:12] LABS: BILIRUBIN,TOTAL 0.4 mg/dl (0.2-1.3); CALCIUM 7.9 mg/dL (8.4-10.2); POTASSIUM 4.1 MMOL/L (3.6-5.0); TOTAL PROTEIN 4.6 G/DL (6.3-8.2)
--- NOTE | 2016-11-24 20:07 | CARD ---
APPROVED REPORT EKG Measurement Heart [id number] <Conclusion> Atrial fibrillation with premature ventricular or aberrantly conducted complexes Minimal voltage criteria for LVH, may be normal variant Lateral infarct, age undetermined Abnormal ECG
--- NOTE | 2016-11-24 20:40 | CP.PCM.PN ---
Subjective - Date & Time of Evaluation Date of Evaluation: 11/24/16 Time of Evaluation: 22:22 - Subjective Subjective: Events noted D/W family Objective - Vital Signs/Intake and Output Vital Signs (last 24 hours): Temp Pulse Resp BP Pulse Ox 97.3 F L 92 H 25 H 116/75 100 11/24/16 16:34 11/24/16 18:00 11/24/16 18:00 11/24/16 18:00 11/24/16 18:00 Intake and Output: 11/24/16 11/25/16 18:59 06:59 Intake Total 3129 Balance 3129 - Medications Medications: Current Medications Acetaminophen (Tylenol 650mg/20.3ml Solution Ud) 650 mg PEG Q4 PRN PRN Reason: Pain, moderate (4-7) Acetaminophen (Tylenol 650mg/20.3ml Solution Ud) 650 mg PEG Q4 PRN PRN Reason: Fever >100.4 F Last Admin: 11/24/16 12:29 Dose: 650 mg Acetylcysteine (Mucomyst 10% 4ml) 2 ml IH RBID [facility] Last Admin: 11/24/16 09:20 Dose: 2 ml Albuterol Sulfate (Albuterol 0.083% Inhal Mary (2.5 Mg/3 Ml) Ud) 2.5 mg INH RQ4 PRN PRN Reason: Shortness of Breath Last Admin: 11/23/16 03:48 Dose: 2.5 mg Albuterol/Ipratropium (Duoneb 3 Mg/0.5 Mg (3 Ml) Ud) 3 ml INH RQ6 [facility] Amiodarone HCl (Cordarone) 200 mg PEG DAILY [facility] Last Admin: 11/24/16 08:51 Dose: 200 mg Aspirin (Aspirin Chewable) 81 mg PEG DAILY [facility] Last Admin: 11/24/16 08:48 Dose: 81 mg Collagenase (Santyl) 1 applic TOP 0900,2099 [facility] Last Admin: 11/24/16 20:25 Dose: 1 applic Dimethicone (Proshield Plus Skin Protectant) 1 applic TOP 0900,2100 [facility] Last Admin: 11/24/16 20:27 Dose: 1 applic Ferrous Sulfate (Feosol Liq) 450 mg PEG DAILY [facility] Last Admin: 11/24/16 08:52 Dose: 450 mg Fluticasone Propionate (Flonase) 2 spr JAKUB DAILY PRN PRN Reason: ALLERGY SYMPTOMS Gabapentin (Neurontin) 400 mg PEG BID [facility] Last Admin: 11/24/16 16:39 Dose: 400 mg Gabapentin (Neurontin) 400 mg PEG HS [facility] Last Admin: 11/23/16 22:01 Dose: 400 mg Vancomycin HCl 1 gm/ Sodium (Chloride) 250 mls @ 250 mls/hr IVPB DAILY [facility] Last Admin: 11/24/16 12:30 Dose: 250 mls/hr Propofol (Diprivan) 1,000 mg in 100 mls @ 1.783 mls/hr IV .Q24H [facility]; 5 MCG/KG/ MIN PRN Reason: Protocol Stop: 11/25/16 06:03 Last Admin: 11/24/16 07:00 Dose: Not Given Norepinephrine Bitartrate 4 mg (/ Dextrose) 254 mls @ 38.1 mls/hr IV .Q6H40M [facility]; 10 MCG/MIN PRN Reason: Protocol Last Titration: 11/24/16 15:02 Dose: 0 mcg/min, 0 mls/hr Dextrose/Sodium Chloride (Dextrose 5%/0.9% Ns 1000 Ml) 1,000 mls @ 125 mls/hr IV .Q8H [facility] Stop: 11/25/16 12:36 Last Admin: 11/24/16 20:34 Dose: 125 mls/hr Cefepime HCl 1 gm/ Sodium (Chloride) 100 mls @ 100 mls/hr IVPB Q12 [facility] Last Admin: 11/24/16 19:59 Dose: 100 mls/hr Megestrol Acetate (Megace) 400 mg PEG DAILY [facility] Last Admin: 11/24/16 08:54 Dose: 400 mg Metoclopramide HCl (Reglan) 10 mg PEG HS [facility] Last Admin: 11/23/16 22:02 Dose: 10 mg Metoprolol Tartrate (Lopressor) 12.5 mg PEG Q12 [facility] Last Admin: 11/24/16 12:27 Dose: 12.5 mg Ondansetron HCl (Zofran Odt) 4 mg PEG Q8 [facility] Last Admin: 11/24/16 16:40 Dose: 4 mg Pantoprazole Sodium (Protonix Susp) 40 mg PEG DAILY [facility] Last Admin: 11/24/16 08:55 Dose: 40 mg Silver Sulfadiazine (Silvadene 1% 50 Gm) 1 applic TOP 0900,2100 [facility] Last Admin: 11/24/16 20:26 Dose: 1 applic Sucralfate (Carafate Oral Susp) 1 gm PEG TID [facility] Last Admin: 11/24/16 16:37 Dose: 1 gm Tramadol HCl (Ultram) 50 mg GT Q6 PRN PRN Reason: Pain, severe (8-10) Last Admin: 11/23/16 09:20 Dose: 50 mg - Labs Labs: 11/24/16 04:00 11/24/16 17:50 PT 12.7 SECONDS (9.6-11.2) H 11/24/16 06:00 INR 1.22 (0.92-1.08) H 11/24/16 06:00 APTT 33.9 SECONDS (23.3-32.5) H D 11/24/16 06:00 - Respiratory Exam Respiratory Exam: NORMAL BREATHING PATTERN - Cardiovascular Exam Cardiovascular Exam: REGULAR RHYTHM - GI/Abdominal Exam GI & Abdominal Exam: Normal Bowel Sounds Assessment and Plan - Assessment and Plan (Free Text) Assessment: Acute Respiratory Failure Asystole Intubated Ventillatory support Aspiration?? HX COPD S/P Klebsiella RLL Pneumonia? S/P L pneumothorax ABX IVF Steroids ?? Pulmonary ID Swallowing?? aspiration?? PEG Jevity and oral feedings Hx s/p + C-diff + Ag -toxin Hx Dec oral intake improved on Megace S/P Asystole 2 to Pulmonary dx (S/P V-fib/ V-tach 2 to pulmonary dx) A-fib CAD S/P CABG Amiodorone Cardiology Chronic chest wall pain Pain meds SMITA/ CKD HX Hyperkalemia and hypokalemia etiol ?? Adrenal insufficiency?? Hx of Orthostatic Hypotension at OR ACTH Cortisol level ?? Eamon d/c Endo and Nephrology Consult
[2016-11-25] MEDS: Acetaminophen 650mg/20.3ml solution UD PEG PRN ×2 (00:11→11:50)
[2016-11-25] MEDS: Albuterol-Ipratrop 3 mg / 0.5 (3 ml) UD INH SCH ×4 (01:00→19:50)
[2016-11-25] MEDS: Dextrose 5%/0.9% NS 1,000 ML IV SCH (05:05)
[2016-11-25 05:06] LABS: ABG ALLEN TEST YES; ABG MECHANICAL RATE 16; ARTERIAL BLOOD GAS O2 CAPACITY 10.7 mL/dL (16-24); ARTERIAL BLOOD GAS O2 CONTENT 10.6 ML/dL (15-23); ARTERIAL BLOOD GAS PO2 199 mm/Hg (80-100); ATERIAL BLOOD GAS PEEP 5; CARBOXYHEMOGLOBIN 0.8 % (0.5-1.5); HHB 0.5 % (0.0-5.0); METHEMOGLOBIN 1.8 % (0.0-3.0)
[2016-11-25 05:11] LABS: BASO % 0.1 % (0.0-2.0); HEMATOCRIT 21.6 % (35.0-51.0); LYMPH # 0.3 K/uL (1.0-4.3); LYMPH % 2.3 % (20.0-40.0); MEAN CORPUSCULAR HEMOGLOBIN 28.7 pg (27.0-31.0); MEAN CORPUSCULAR HGB CONC 31.9 g/dL (33.0-37.0); MEAN PLATELET VOLUME 8.7 fl (7.2-11.7); MONO # 0.2 K/uL (0.0-0.8); MONO % 1.7 % (0.0-10.0); NEUT # 12.8 K/uL (1.8-7.0); NEUT % 95.9 % (50.0-75.0); PLATELET COUNT 173 K/uL (130-400); RED CELL DISTRIBUTION WIDTH 16.8 % (11.5-14.5); WHITE BLOOD COUNT 13.4 K/uL (4.8-10.8)
[2016-11-25 05:17] LABS: ALB/GLOB RATIO 0.9 (1.0-2.1); BILIRUBIN,TOTAL 0.5 mg/dl (0.2-1.3); CALCIUM 7.7 mg/dL (8.4-10.2); POTASSIUM 3.7 MMOL/L (3.6-5.0); TOTAL PROTEIN 4.4 G/DL (6.3-8.2)
[2016-11-25 05:32] LABS: T4 4.31 ug/dl (5.5-11.0)
[2016-11-25 05:45] LABS: THYROID STIMULATING HORMONE 0.21 mIU/ML (0.46-4.68)
[2016-11-25 06:41] LABS: NEUTROPHIL 95 % (42-75); TOTAL CELLS COUNTED 100
--- NOTE | 2016-11-25 07:47 | CON ---
DATE: 11/24/2016 ____ pneumonia on the background of chronic obstructive lung disease, admitted now ____ shortness of breath and being evaluated and followed closely for hemodynamic monitoring in the ICU. He is being r eferred now for metabolic management because of known history of hypothyroidism as noted thereof. He also has recurrent hypokalemia, which on the previous metabolic workup did not show any ____ dysfunc tion. PAST MEDICAL HISTORY: As mentioned above, history of coronary artery disease and previous admissions for congestive heart disease, history of chronic obstructive lung disease and recurrent admissions f or acute exacerbation of the same and also for recurrent aspiration pneumonia, history of cardiac tac hyarrhythmias due to chronic atrial fibrillation and underlying dilated cardiomyopathy ____ history o f hypertensive cardiovascular disease and dyslipidemia, history of hypothyroidism on levothyroxine re placement therapy. FAMILY HISTORY: Positive for hypertension and heart disease. SOCIAL HISTORY: The patient has a supportive family. No known substance use. REVIEW OF SYSTEMS: As mentioned above, admits to generalized body weakness with episodic dizziness a nd lightheadedness, worse on the day of admission. Also, admits to progressive shortness of breath i nitially with exertion and then at rest with precordial chest pain as noted. Also, admits to recent paroxysmal nocturnal dyspnea. His oral intake is variable and suboptimal with occasional dyspepsia a nd vague upper abdominal pain. Also, admits to lower extremity swelling ____. PHYSICAL EXAMINATION: GENERAL: This is an average built male, in no apparent distress. VITAL SIGNS: Blood pressure of 140/80, pulse ____. HEENT: Head normocephalic. Eyes anicteric with ____ conjunctivae. Fundoscopy not possible at this time. Ears, nose and throat otherwise ____. CARDIOPULMONARY: Some adynamic precordium. S1, S2 ____ and regular. LUNGS: Show scattered ____. EXTREMITIES: No ____. LABORATORIES: The chemistry showed a BUN of 44, sodium 140, potassium 4.8, chloride 103, CO2 24, glu cose 114 and creatinine 1.5. His glucose levels have ranged from 101-129 and 140 mg/dL. ASSESSMENT: This is a 71-year-old male ____ recurrent aspiration pneumonia, admitted with progressiv e shortness of breath ____ exacerbation of chronic obstructive pulmonary disease and is now being ref erred for endocrine evaluation because of known history of persistent hypokalemia ____ medications wi th the previous admission with near normalization of his potassium level as noted. The previous meta bolic workup did not show any plasma renin or joanna ____ as noted. PLAN OF MANAGEMENT: As discussed with the patient and the staff, we will continue the present cardia c and pulmonary management ____ hemodynamic monitoring as noted. We will obtain serial chemistries a nd supplement accordingly as needed. We will also repeat the thyroid function studies with a total T 4 and free T4 and TSH and adjust his levothyroxine dose accordingly. We will also obtain a baseline serum cortisol and ACTH level as ordered. We will follow and advise accordingly. Anabella Sebastian MD cc: [phone] TT: 11/24/2016 12:42:45 Confirmation # [id number] Dictation # [id number] en
[2016-11-25] MEDS: Acetylcysteine 10% 4 ML IH SCH ×2 (08:05→19:50)
[2016-11-25] MEDS: Sucralfate 1 gm/10 ml Oral Susp UD PEG SCH ×3 (08:16→16:38)
[2016-11-25] MEDS: Ferrous Sulfate 300 mg/5 mL Liq UD PEG SCH (08:17)
[2016-11-25] MEDS: Pantoprazole 40 mg Susp UD PEG SCH (08:20)
[2016-11-25] MEDS: Megestrol Acetate 40 mg/ml Cup PEG SCH (08:20)
[2016-11-25] MEDS: Proshield Plus GEL TOP SCH ×2 (08:21→21:11)
[2016-11-25] MEDS: Santyl Collagenase OINTMENT TOP SCH ×2 (08:22→20:37)
[2016-11-25] MEDS: Cefepime 1 GM in Sodium Chloride 0.9% 100 ML IVPB SCH ×2 (09:36→20:39)
--- NOTE | 2016-11-25 10:50 | CP.PCM.PN ---
Subjective - Date & Time of Evaluation Date of Evaluation: 11/25/16 Time of Evaluation: 10:42 - Subjective Subjective: Remains intubated and mechanically ventilated. Not responsive to verbal commands or tactile stimuli. Today's CXR continues to show patchy alveolar densities w/o consolidation. The leukocytosis has decreased substantially on the present antibiotic regimen. Sputum specimens have been collected and sent to the lab. He remains tachypneic >20BPM despite SpO2 99%. Paradoxical abdominal motion is noted without IC retractions seen. PAP and plateau pressures are 28 and 26 respectively. No dullness on percussion of the anterior chest wall, no subcut emphysema. Breath sounds are present bilaterally with medium rales in dependant zones of both lungs. No audible wheezing or bronchial breathing is appreciated. Heart sounds are distant with rale around 100BPM. No dependant edema or cyanosis noted. Lab shows a decreased Hgb of 6.9GM. Vent changes made, but he is not weanable at this time. He will need transfusion of PRBC's. Transaminitis and SMITA suggest a significant ischemic event has occurred. Will need a CT brain. Follow stool guiac to see if GI blood loss has happened. Presently not on any anticoagulation prophylaxis. Objective - Vital Signs/Intake and Output Vital Signs (last 24 hours): Temp Pulse Resp BP Pulse Ox 99 F 104 H 30 H 141/95 H 100 11/25/16 08:00 11/25/16 10:00 11/25/16 10:00 11/25/16 10:00 11/25/16 10:00 Intake and Output: 11/24/16 11/25/16 23:59 11:59 Intake Total 2575 1845 Output Total 200 Balance 2575 1645 - Medications Medications: Current Medications Acetaminophen (Tylenol 650mg/20.3ml Solution Ud) 650 mg PEG Q4 PRN PRN Reason: Pain, moderate (4-7) Acetaminophen (Tylenol 650mg/20.3ml Solution Ud) 650 mg PEG Q4 PRN PRN Reason: Fever >100.4 F Last Admin: 11/25/16 00:11 Dose: 650 mg Acetylcysteine (Mucomyst 10% 4ml) 2 ml IH RBID [facility] Last Admin: 11/25/16 08:05 Dose: 2 ml Albuterol Sulfate (Albuterol 0.083% Inhal Mary (2.5 Mg/3 Ml) Ud) 2.5 mg INH RQ4 PRN PRN Reason: Shortness of Breath Last Admin: 11/23/16 03:48 Dose: 2.5 mg Albuterol/Ipratropium (Duoneb 3 Mg/0.5 Mg (3 Ml) Ud) 3 ml INH RQ6 [facility] Last Admin: 11/25/16 08:05 Dose: 3 ml Amiodarone HCl (Cordarone) 200 mg PEG DAILY [facility] Last Admin: 11/25/16 08:18 Dose: 200 mg Aspirin (Aspirin Chewable) 81 mg PEG DAILY [facility] Last Admin: 11/25/16 08:18 Dose: 81 mg Collagenase (Santyl) 1 applic TOP 0900,2100 [facility] Last Admin: 11/25/16 08:22 Dose: 1 applic Dimethicone (Proshield Plus Skin Protectant) 1 applic TOP 0900,2100 [facility] Last Admin: 11/25/16 08:21 Dose: 1 applic Ferrous Sulfate (Feosol Liq) 450 mg PEG DAILY [facility] Last Admin: 11/25/16 08:17 Dose: 450 mg Fluticasone Propionate (Flonase) 2 spr JAKUB DAILY PRN PRN Reason: ALLERGY SYMPTOMS Gabapentin (Neurontin) 400 mg PEG BID [facility] Last Admin: 11/25/16 08:18 Dose: 400 mg Gabapentin (Neurontin) 400 mg PEG HS [facility] Last Admin: 11/24/16 21:07 Dose: 400 mg Vancomycin HCl 1 gm/ Sodium (Chloride) 250 mls @ 250 mls/hr IVPB DAILY [facility] Last Admin: 11/25/16 08:16 Dose: 250 mls/hr Dextrose/Sodium Chloride (Dextrose 5%/0.9% Ns 1000 Ml) 1,000 mls @ 125 mls/hr IV .Q8H [facility] Stop: 11/25/16 12:36 Last Admin: 11/25/16 05:05 Dose: 125 mls/hr Cefepime HCl 1 gm/ Sodium (Chloride) 100 mls @ 100 mls/hr IVPB Q12 [facility] Last Admin: 11/25/16 09:36 Dose: 100 mls/hr Megestrol Acetate (Megace) 400 mg PEG DAILY [facility] Last Admin: 11/25/16 08:20 Dose: 400 mg Metoclopramide HCl (Reglan) 10 mg PEG HS [facility] Last Admin: 11/24/16 21:12 Dose: 10 mg Metoprolol Tartrate (Lopressor) 12.5 mg PEG Q12 [facility] Last Admin: 11/25/16 08:18 Dose: 12.5 mg Ondansetron HCl (Zofran Odt) 4 mg PEG Q8 [facility] Last Admin: 11/24/16 16:40 Dose: 4 mg Pantoprazole Sodium (Protonix Susp) 40 mg PEG DAILY [facility] Last Admin: 11/25/16 08:20 Dose: 40 mg Silver Sulfadiazine (Silvadene 1% 50 Gm) 1 applic TOP 0900,2100 [facility] Last Admin: 11/24/16 20:26 Dose: 1 applic Sucralfate (Carafate Oral Susp) 1 gm PEG TID [facility] Last Admin: 11/25/16 08:16 Dose: 1 gm Tramadol HCl (Ultram) 50 mg GT Q6 PRN PRN Reason: Pain, severe (8-10) Last Admin: 11/23/16 09:20 Dose: 50 mg - Labs Labs: 11/25/16 04:30 11/25/16 04:30 PT 12.7 SECONDS (9.6-11.2) H 11/24/16 06:00 INR 1.22 (0.92-1.08) H 11/24/16 06:00 APTT 33.9 SECONDS (23.3-32.5) H D 11/24/16 06:00 Assessment and Plan (1) Respiratory failure with hypercapnia Status: Acute (2) Endotracheally intubated Status: Acute (3) On mechanically assisted ventilation Status: Acute (4) Pneumonia Status: Acute (5) COPD exacerbation Status: Acute
--- NOTE | 2016-11-25 11:16 | RAD ---
PROCEDURE: CHEST RADIOGRAPH, 1 VIEW HISTORY: pt intubated COMPARISON: 11/24/2016 FINDINGS: LUNGS: Patchy opacity at right base, not previously evident. PLEURA: No pneumothorax or pleural fluid seen. CARDIOVASCULAR: CABG. Endotracheal tube and right IJ central venous catheter are unchanged. OSSEOUS STRUCTURES: No significant abnormalities. VISUALIZED UPPER ABDOMEN: Normal. OTHER FINDINGS: None. IMPRESSION: New patchy opacity at right lung base, possible developing pneumonia. Lines and tubes unchanged.
--- NOTE | 2016-11-25 11:28 | PQF GENQUE ---
This form is a permanent part of the medical record 11/25/16 Dr. Dial, umbrella mender has documented the following information with no mention of this diagnosis in your documentation. Please indicate in your next progress note and /or discharge summary your agreement with showroom sales consultant or provide clarification that this diagnosis is not a current condition. Diagnosis: PRESSURE ULCERS: Sacrum stage 2 and bilateral heels Unstageable Clarification of your documentation is requested to better reflect the severity of illness and intensity of treatment of your patient. PHYSICIAN'S RESPONSE Based on your medical judgment of the clinical indicators outlined above please clarify the following: [] Practitioner response [] If unable to determine, please check the box, sign and date. Present On Admission (POA) Indicator: [] Present at the time of admission [] Not present at the time of admission [] Clinically Undetermined In responding to this query, please exercise your independent professional judgment. The fact that a question is asked does not imply that any particular answer is desired or expected. Thank you for your clarification on this documentation. If you have any questions please call:extension [phone] * Thank you, Iram Patel RN [facility]
[2016-11-25 11:49] LABS: MEAN CELL VOLUME 88.8 fl (80.0-94.0); MEAN CORPUSCULAR HEMOGLOBIN 28.5 pg (27.0-31.0); MEAN CORPUSCULAR HGB CONC 32.1 g/dL (33.0-37.0); RED CELL DISTRIBUTION WIDTH 17.4 % (11.5-14.5); WHITE BLOOD COUNT 13.6 K/uL (4.8-10.8)
[2016-11-25] MEDS: Silver Sulfadiazine 1% CREAM (50 gm) TOP SCH ×2 (11:51→21:10)
--- NOTE | 2016-11-25 12:34 | CP.PCM.PN ---
Subjective - Date & Time of Evaluation Date of Evaluation: 11/25/16 Time of Evaluation: 07:00 - Subjective Subjective: events noted required intubation and mechanical ventilation poorly responsive on vent IV rx in progress cultures anxiously awaited Objective - Vital Signs/Intake and Output Vital Signs (last 24 hours): Temp Pulse Resp BP Pulse Ox 101.7 F H 103 H 26 H 140/86 100 11/25/16 11:58 11/25/16 11:58 11/25/16 11:58 11/25/16 11:58 11/25/16 11:58 Intake and Output: 11/25/16 11/25/16 06:59 18:59 Intake Total 1370 675 Output Total 200 Balance 1170 675 - Medications Medications: Current Medications Acetaminophen (Tylenol 650mg/20.3ml Solution Ud) 650 mg PEG Q4 PRN PRN Reason: Pain, moderate (4-7) Last Admin: 11/25/16 11:50 Dose: 650 mg Acetaminophen (Tylenol 650mg/20.3ml Solution Ud) 650 mg PEG Q4 PRN PRN Reason: Fever >100.4 F Last Admin: 11/25/16 00:11 Dose: 650 mg Acetylcysteine (Mucomyst 10% 4ml) 2 ml IH RBID [facility] Last Admin: 11/25/16 08:05 Dose: 2 ml Albuterol Sulfate (Albuterol 0.083% Inhal Mary (2.5 Mg/3 Ml) Ud) 2.5 mg INH RQ4 PRN PRN Reason: Shortness of Breath Last Admin: 11/23/16 03:48 Dose: 2.5 mg Albuterol/Ipratropium (Duoneb 3 Mg/0.5 Mg (3 Ml) Ud) 3 ml INH RQ6 [facility] Last Admin: 11/25/16 08:05 Dose: 3 ml Amiodarone HCl (Cordarone) 200 mg PEG DAILY [facility] Last Admin: 11/25/16 08:18 Dose: 200 mg Aspirin (Aspirin Chewable) 81 mg PEG DAILY [facility] Last Admin: 11/25/16 08:18 Dose: 81 mg Collagenase (Santyl) 1 applic TOP 899,2099 [facility] Last Admin: 11/25/16 08:22 Dose: 1 applic Dimethicone (Proshield Plus Skin Protectant) 1 applic TOP 899,2099 [facility] Last Admin: 11/25/16 08:21 Dose: 1 applic Ferrous Sulfate (Feosol Liq) 450 mg PEG DAILY [facility] Last Admin: 11/25/16 08:17 Dose: 450 mg Fluticasone Propionate (Flonase) 2 spr JAKUB DAILY PRN PRN Reason: ALLERGY SYMPTOMS Gabapentin (Neurontin) 400 mg PEG BID [facility] Last Admin: 11/25/16 08:18 Dose: 400 mg Gabapentin (Neurontin) 400 mg PEG HS [facility] Last Admin: 11/24/16 21:07 Dose: 400 mg Vancomycin HCl 1 gm/ Sodium (Chloride) 250 mls @ 250 mls/hr IVPB DAILY [facility] Last Admin: 11/25/16 08:16 Dose: 250 mls/hr Dextrose/Sodium Chloride (Dextrose 5%/0.9% Ns 1000 Ml) 1,000 mls @ 125 mls/hr IV .Q8H [facility] Stop: 11/25/16 12:36 Last Admin: 11/25/16 05:05 Dose: 125 mls/hr Cefepime HCl 1 gm/ Sodium (Chloride) 100 mls @ 100 mls/hr IVPB Q12 [facility] Last Admin: 11/25/16 09:36 Dose: 100 mls/hr Megestrol Acetate (Megace) 400 mg PEG DAILY [facility] Last Admin: 11/25/16 08:20 Dose: 400 mg Metoclopramide HCl (Reglan) 10 mg PEG HS [facility] Last Admin: 11/24/16 21:12 Dose: 10 mg Metoprolol Tartrate (Lopressor) 12.5 mg PEG Q12 [facility] Last Admin: 11/25/16 08:18 Dose: 12.5 mg Ondansetron HCl (Zofran Odt) 4 mg PEG Q8 [facility] Last Admin: 11/24/16 16:40 Dose: 4 mg Pantoprazole Sodium (Protonix Susp) 40 mg PEG DAILY [facility] Last Admin: 11/25/16 08:20 Dose: 40 mg Silver Sulfadiazine (Silvadene 1% 50 Gm) 1 applic TOP 0900,2100 [facility] Last Admin: 11/25/16 11:51 Dose: 1 applic Sucralfate (Carafate Oral Susp) 1 gm PEG TID [facility] Last Admin: 11/25/16 08:16 Dose: 1 gm Tramadol HCl (Ultram) 50 mg GT Q6 PRN PRN Reason: Pain, severe (8-10) Last Admin: 11/23/16 09:20 Dose: 50 mg - Labs Labs: 11/25/16 11:30 11/25/16 04:30 PT 12.7 SECONDS (9.6-11.2) H 11/24/16 06:00 INR 1.22 (0.92-1.08) H 11/24/16 06:00 APTT 33.9 SECONDS (23.3-32.5) H D 11/24/16 06:00 - Constitutional Appears: Confused, Cachectic, Chronically Ill - Head Exam Head Exam: NORMOCEPHALIC - Eye Exam Eye Exam: PERRL. absent: Scleral icterus - ENT Exam ENT Exam: Mucous Membranes Dry, Normal External Ear Exam - Neck Exam Neck Exam: absent: Lymphadenopathy, Thyromegaly - Respiratory Exam Respiratory Exam: Decreased Breath Sounds, Rales, Rhonchi - Cardiovascular Exam Cardiovascular Exam: REGULAR RHYTHM, +S1, +S2 - GI/Abdominal Exam GI & Abdominal Exam: Distended, Soft. absent: Tenderness - Rectal Exam Rectal Exam: Deferred - Extremities Exam Extremities Exam: absent: Calf Tenderness, Pedal Edema - Back Exam Back Exam: absent: CVA tenderness (L), CVA tenderness (R) - Neurological Exam Neurological Exam: Altered - Psychiatric Exam Psychiatric exam: Depressed - Skin Skin Exam: Dry Assessment and Plan (1) COPD (chronic obstructive pulmonary disease) with acute bronchitis Status: Acute (2) Atrial fibrillation Status: Acute (3) CHF (congestive heart failure) Status: Acute (4) Dehydration Status: Acute (5) Moderate COPD (chronic obstructive pulmonary disease) Status: Acute (6) PAD (peripheral artery disease) Status: Acute (7) Pneumonia Status: Acute (8) COPD (chronic obstructive pulmonary disease) Status: Chronic (9) COPD exacerbation Status: Acute - Assessment and Plan (Free Text) Assessment: pneumonia resp failure sepsis hx ESBL in past will add merrem await cultures
[2016-11-25] MEDS: Meropenem 500 MG in Sodium Chloride 0.9% 100 ML IVPB SCH ×2 (13:47→16:39)
--- NOTE | 2016-11-25 14:04 | PN ---
DATE: 11/25/2016 The patient in ICU, bed 423. TIME SPENT: 45 minutes. The patient is seen and evaluated at the bedside. His events since admission reviewed. Past medical , surgical and social history reviewed as noted in the chart. A 71-year-old male with history of chronic obstructive pulmonary disease, former smoker, atrial fibri llation, prostate hypertrophy, paroxysmal atrial fibrillation. Admitted with respiratory failure, pn eumonia, previous history of ESBL pneumonia, status post respiratory arrest, intubated, now on mechan ical ventilation AC/PRVC rate of 14, tidal volume of 450, FiO2 45%, observed rate 24, exhaled tidal v olume of 400 mL, minute ventilation 11.4, saturating 100%, peak airway pressure 29, mean airway press ure 17, end tidal CO2 26. Remains comfortable on the ventilator. PHYSICAL EXAMINATION: VITAL SIGNS: Temperature 101.7, heart rate 103, irregular. Telemetry, atrial fibrillation. Blood p ressure 140/86, respiratory rate 26-29, saturating 100%. Intake 4499, output 200, positive balance 4 299. Weight 133 pounds, increased from 131 pounds on admission. HEENT: Pupils reactive. Conjunctivae pale. Sclerae white. NECK: Supple. Endotracheal tube in place. No secretion noted. HEART: Rhythm irregular, distant. LUNGS: Bilateral breath sounds. Fine crepitations at the bases. ABDOMEN: Bowel sounds present, soft. PEG in place. EXTREMITIES: Trace edema. Peripheral pulses are intact, reduced in intensity. NEUROLOGIC: No response to verbal or painful stimuli. CURRENT MEDICATIONS: Include meropenem 500 mg IV q. 8, cefepime 1 gram IV q. 12, Tylenol 650 q. 4 fo r temp more than 100.4, DuoNeb 3 mL via nebulizer q. 6, Mucomyst 10% 2 mL q. 12, amiodarone 200 mg PE G daily, aspirin 81 mg daily, Santyl, sucralfate 1 gram PEG 3 times daily, metoprolol 12.5 mg, ferrou s sulfate 450 daily, Protonix 40 PEG daily, Carafate 1 gram PEG q.i.d. LABORATORY DATA: WBC 13.6, hemoglobin 7.1, hematocrit 22, platelet count 176, neutrophils 95, lympho cytes 5. SMA-7: Sodium 140, potassium 3.7, chloride 107, CO2 24, blood urea nitrogen 53, creatinine 2, glucose 152. ABG: pH 7.40, pCO2 38, pO2 199, oxygen saturation 99.5. Urinalysis negative. Inf luenza A and B negative. Microbiology: Sputum culture positive for gram-negative rods. Urine cultu re positive for gram-positive cocci. IMPRESSION: Acute hypoxic respiratory failure, status post respiratory arrest. Chest x-ray consiste nt with pneumonia at the right lung. Anemia without obvious melena. Hemoglobin reduced from 8.9 to 7.1. Noted significant positive fluid balance, maybe suggesting hemodilution. However, will repeat hemoglobin and transfuse packed red blood cells if hemoglobin remains lower than 8. Acute on chronic renal failure with BUN 53 and creatinine 2. Sepsis with bacteremia, gram-negative rods in the sputu m and gram-positive cocci in the urine, history of extended-spectrum beta-lactamase infection in the past. Currently on meropenem, cefepime. Chronic obstructive pulmonary disease. Continue DuoNeb, an tibiotic, aspirin. Anemia of chronic disease, has been on ferrous sulfate. Continue same. Hyperten cory/coronary artery disease, on metoprolol 12.5 mg q. 12. History of atrial fibrillation, currently controlled. Continue deep venous thrombosis and gastrointestinal prophylaxis with MARILUZ stockings. H old anticoagulation as hemoglobin is low and to rule out gastrointestinal bleeding, send stool for oc cult blood. Wilfredo De La Cruz MD cc: [phone] TT: 11/25/2016 14:04:34 Confirmation # [id number] Dictation # [id number] en
--- NOTE | 2016-11-25 15:47 | PN ---
DATE: 11/25/2016 ROOM: 423, ICU. This is a 71-year-old male admitted with acute with respiratory distress on the background of chronic recurrent aspiration pneumonia and exacerbation of COPD and is now being followed closely for metabo lic management. He remains clinically euthyroid at this time and comprehensive thyroid testing showe d a T4 of 4.31 with a free T4 of 2.32 and a TSH of 0.21. This is actually indicative of the so-lawrence d acute sick euthyroid syndrome with transient suppression of the TSH and low normal thyroxine levels , especially in the light of underlying hypoalbuminemia with low normal thyroxine binding globulin le vels causing the falsely low thyroxine values as reported. There is no indication at this time for a ny kind of thyroid pharmacotherapy and should expect improvement of his thyroid studies as his clinic al and cardiac condition improves accordingly. His latest chemistries showed a BUN of 53, sodium 140, potassium 3.7, chloride 107, CO2 of 24, glucos e 152 and creatinine 2.0. So, at this time, will continue the present medical management as ordered and would expect transient hyperglycemic accelerations related to the oral steroids being given at this time. Will observe his glycemic fluctuations and determine the need for the initiation of basal insulin and/or oral hypoglyc emic drug therapy only as indicated. Will obtain serial chemistries and supplement accordingly as ne betty. Will follow. Anabella Sebastian MD cc: [phone] TT: 11/25/2016 15:46:01 Confirmation # [id number] Dictation # [id number] mn
--- NOTE | 2016-11-25 16:12 | CP.PCM.PN ---
Subjective - Date & Time of Evaluation Date of Evaluation: 11/25/16 Time of Evaluation: 08:00 - Subjective Subjective: UNRESPONSIVE TO VERBAL OR TACTILE STIMULI Objective - Vital Signs/Intake and Output Vital Signs (last 24 hours): Temp Pulse Resp BP Pulse Ox 101.7 F H 110 H 31 H 126/75 100 11/25/16 11:58 11/25/16 14:00 11/25/16 14:00 11/25/16 14:00 11/25/16 14:00 Intake and Output: 11/25/16 11/25/16 06:59 18:59 Intake Total 1370 795 Output Total 200 Balance 1170 795 - Medications Medications: Current Medications Acetaminophen (Tylenol 650mg/20.3ml Solution Ud) 650 mg PEG Q4 PRN PRN Reason: Pain, moderate (4-7) Last Admin: 11/25/16 11:50 Dose: 650 mg Acetaminophen (Tylenol 650mg/20.3ml Solution Ud) 650 mg PEG Q4 PRN PRN Reason: Fever >100.4 F Last Admin: 11/25/16 00:11 Dose: 650 mg Acetylcysteine (Mucomyst 10% 4ml) 2 ml IH RBID [facility] Last Admin: 11/25/16 08:05 Dose: 2 ml Albuterol Sulfate (Albuterol 0.083% Inhal Mary (2.5 Mg/3 Ml) Ud) 2.5 mg INH RQ4 PRN PRN Reason: Shortness of Breath Last Admin: 11/23/16 03:48 Dose: 2.5 mg Albuterol/Ipratropium (Duoneb 3 Mg/0.5 Mg (3 Ml) Ud) 3 ml INH RQ6 [facility] Last Admin: 11/25/16 13:30 Dose: 3 ml Amiodarone HCl (Cordarone) 200 mg PEG DAILY [facility] Last Admin: 11/25/16 08:18 Dose: 200 mg Aspirin (Aspirin Chewable) 81 mg PEG DAILY [facility] Last Admin: 11/25/16 08:18 Dose: 81 mg Collagenase (Santyl) 1 applic TOP 899,2099 [facility] Last Admin: 11/25/16 08:22 Dose: 1 applic Dimethicone (Proshield Plus Skin Protectant) 1 applic TOP 899,2099 [facility] Last Admin: 11/25/16 08:21 Dose: 1 applic Ferrous Sulfate (Feosol Liq) 450 mg PEG DAILY [facility] Last Admin: 11/25/16 08:17 Dose: 450 mg Fluticasone Propionate (Flonase) 2 spr JAKUB DAILY PRN PRN Reason: ALLERGY SYMPTOMS Gabapentin (Neurontin) 400 mg PEG BID [facility] Last Admin: 11/25/16 08:18 Dose: 400 mg Gabapentin (Neurontin) 400 mg PEG HS [facility] Last Admin: 11/24/16 21:07 Dose: 400 mg Vancomycin HCl 1 gm/ Sodium (Chloride) 250 mls @ 250 mls/hr IVPB DAILY [facility] Last Admin: 11/25/16 08:16 Dose: 250 mls/hr Cefepime HCl 1 gm/ Sodium (Chloride) 100 mls @ 100 mls/hr IVPB Q12 [facility] Last Admin: 11/25/16 09:36 Dose: 100 mls/hr Meropenem 500 mg/ Sodium (Chloride) 100 mls @ 100 mls/hr IVPB Q8 [facility] Last Admin: 11/25/16 13:47 Dose: 100 mls/hr Megestrol Acetate (Megace) 400 mg PEG DAILY [facility] Last Admin: 11/25/16 08:20 Dose: 400 mg Metoclopramide HCl (Reglan) 10 mg PEG HS [facility] Last Admin: 11/24/16 21:12 Dose: 10 mg Metoprolol Tartrate (Lopressor) 12.5 mg PEG Q12 [facility] Last Admin: 11/25/16 08:18 Dose: 12.5 mg Ondansetron HCl (Zofran Odt) 4 mg PEG Q8 [facility] Last Admin: 11/24/16 16:40 Dose: 4 mg Pantoprazole Sodium (Protonix Susp) 40 mg PEG DAILY [facility] Last Admin: 11/25/16 08:20 Dose: 40 mg Silver Sulfadiazine (Silvadene 1% 50 Gm) 1 applic TOP 0900,2100 [facility] Last Admin: 11/25/16 11:51 Dose: 1 applic Sucralfate (Carafate Oral Susp) 1 gm PEG TID [facility] Last Admin: 11/25/16 12:44 Dose: 1 gm - Labs Labs: 11/25/16 11:30 11/25/16 04:30 PT 12.7 SECONDS (9.6-11.2) H 11/24/16 06:00 INR 1.22 (0.92-1.08) H 11/24/16 06:00 APTT 33.9 SECONDS (23.3-32.5) H D 11/24/16 06:00 - Respiratory Exam Respiratory Exam: Rales - Cardiovascular Exam Cardiovascular Exam: Tachycardia, REGULAR RHYTHM, +S1, +S2 - Extremities Exam Extremities Exam: Normal Inspection - Additional Findings Additional findings: EKG YESTERDAY ATRIAL FIBRILLATION MANAGER PROGRAMMING THIS AM SINUS RHYTHM CXR PATCHY ALVEOLAR DENSITIES WBC 13K H/H 02/06 PULMONARY NOTE SEEN Assessment and Plan - Assessment and Plan (Free Text) Assessment: COPD WITH PNEUMONIA AND RESPIRATORY FAILURE CAD BACK IN SINUS RHYTHM ANEMIA PROGNOSIS VERY GUARDED Plan: CONTINUE MV, IV ANTIBIOTICS, AMIODARONE, ASPIRIN, METOPROLOL
[2016-11-25 18:30] LABS: HEMATOCRIT 22.3 % (35.0-51.0); MEAN CELL VOLUME 89.5 fl (80.0-94.0); MEAN CORPUSCULAR HEMOGLOBIN 28.5 pg (27.0-31.0); MEAN CORPUSCULAR HGB CONC 31.9 g/dL (33.0-37.0); WHITE BLOOD COUNT 14.2 K/uL (4.8-10.8)
[2016-11-25] MEDS ORDERED: Potassium Chloride 20 MEQ in Sodium Chloride 0.45% 1,000 ML IV SCH (19:00)
--- NOTE | 2016-11-25 20:41 | CP.PCM.PN ---
Subjective - Date & Time of Evaluation Date of Evaluation: 11/25/16 Time of Evaluation: 22:22 - Subjective Subjective: Events noted Responsive to deep stimuli Objective - Vital Signs/Intake and Output Vital Signs (last 24 hours): Temp Pulse Resp BP Pulse Ox 99.4 F 108 H 26 H 157/73 H 100 11/25/16 16:00 11/25/16 20:35 11/25/16 17:00 11/25/16 20:35 11/25/16 17:00 Intake and Output: 11/25/16 11/26/16 18:59 06:59 Intake Total 935 Balance 935 - Medications Medications: Current Medications Acetaminophen (Tylenol 650mg/20.3ml Solution Ud) 650 mg PEG Q4 PRN PRN Reason: Pain, moderate (4-7) Last Admin: 11/25/16 11:50 Dose: 650 mg Acetaminophen (Tylenol 650mg/20.3ml Solution Ud) 650 mg PEG Q4 PRN PRN Reason: Fever >100.4 F Last Admin: 11/25/16 00:11 Dose: 650 mg Acetylcysteine (Mucomyst 10% 4ml) 2 ml IH RBID [facility] Last Admin: 11/25/16 19:50 Dose: 2 ml Albuterol Sulfate (Albuterol 0.083% Inhal Mary (2.5 Mg/3 Ml) Ud) 2.5 mg INH RQ4 PRN PRN Reason: Shortness of Breath Last Admin: 11/23/16 03:48 Dose: 2.5 mg Albuterol/Ipratropium (Duoneb 3 Mg/0.5 Mg (3 Ml) Ud) 3 ml INH RQ6 [facility] Last Admin: 11/25/16 19:50 Dose: 3 ml Amiodarone HCl (Cordarone) 200 mg PEG DAILY [facility] Last Admin: 11/25/16 08:18 Dose: 200 mg Aspirin (Aspirin Chewable) 81 mg PEG DAILY [facility] Last Admin: 11/25/16 08:18 Dose: 81 mg Collagenase (Santyl) 1 applic TOP 0900,2100 [facility] Last Admin: 11/25/16 20:37 Dose: 1 applic Dimethicone (Proshield Plus Skin Protectant) 1 applic TOP 00,2100 [facility] Last Admin: 11/25/16 08:21 Dose: 1 applic Ferrous Sulfate (Feosol Liq) 450 mg PEG DAILY [facility] Last Admin: 11/25/16 08:17 Dose: 450 mg Fluticasone Propionate (Flonase) 2 spr JAKUB DAILY PRN PRN Reason: ALLERGY SYMPTOMS Gabapentin (Neurontin) 400 mg PEG BID [facility] Last Admin: 11/25/16 16:38 Dose: 400 mg Gabapentin (Neurontin) 400 mg PEG HS [facility] Last Admin: 11/24/16 21:07 Dose: 400 mg Vancomycin HCl 1 gm/ Sodium (Chloride) 250 mls @ 250 mls/hr IVPB DAILY [facility] Last Admin: 11/25/16 08:16 Dose: 250 mls/hr Cefepime HCl 1 gm/ Sodium (Chloride) 100 mls @ 100 mls/hr IVPB Q12 [facility] Last Admin: 11/25/16 09:36 Dose: 100 mls/hr Meropenem 500 mg/ Sodium (Chloride) 100 mls @ 100 mls/hr IVPB Q8 [facility] Last Admin: 11/25/16 16:39 Dose: 100 mls/hr Potassium Chloride 20 meq/ (Sodium Chloride) 1,010 mls @ 50 mls/hr IV .[id number] [facility] Stop: 11/26/16 18:49 Last Admin: 11/25/16 19:51 Dose: 50 mls/hr Megestrol Acetate (Megace) 400 mg PEG DAILY [facility] Last Admin: 11/25/16 08:20 Dose: 400 mg Metoclopramide HCl (Reglan) 10 mg PEG HS [facility] Last Admin: 11/24/16 21:12 Dose: 10 mg Metoprolol Tartrate (Lopressor) 12.5 mg PEG Q12 [facility] Last Admin: 11/25/16 20:35 Dose: 12.5 mg Ondansetron HCl (Zofran Odt) 4 mg PEG Q8 [facility] Last Admin: 11/24/16 16:40 Dose: 4 mg Pantoprazole Sodium (Protonix Susp) 40 mg PEG DAILY [facility] Last Admin: 11/25/16 08:20 Dose: 40 mg Silver Sulfadiazine (Silvadene 1% 50 Gm) 1 applic TOP 09,2100 [facility] Last Admin: 11/25/16 11:51 Dose: 1 applic Sucralfate (Carafate Oral Susp) 1 gm PEG TID [facility] Last Admin: 11/25/16 16:38 Dose: 1 gm - Labs Labs: 11/25/16 18:28 11/25/16 04:30 PT 12.7 SECONDS (9.6-11.2) H 11/24/16 06:00 INR 1.22 (0.92-1.08) H 11/24/16 06:00 APTT 33.9 SECONDS (23.3-32.5) H D 11/24/16 06:00 - Respiratory Exam Respiratory Exam: NORMAL BREATHING PATTERN - Cardiovascular Exam Cardiovascular Exam: REGULAR RHYTHM - GI/Abdominal Exam GI & Abdominal Exam: Normal Bowel Sounds Assessment and Plan - Assessment and Plan (Free Text) Assessment: Acute Respiratory Failure Asystole Intubated Ventillatory support Aspiration?? HX COPD S/P Klebsiella RLL Pneumonia? S/P L pneumothorax ABX IVF Steroids ?? Pulmonary ID Swallowing?? aspiration?? PEG Jevity and oral feedings Hx s/p + C-diff + Ag -toxin Hx Dec oral intake improved on Megace S/P Asystole 2 to Pulmonary dx (S/P V-fib/ V-tach 2 to pulmonary dx) A-fib CAD S/P CABG Amiodorone Cardiology SMITA/ CKD HX Hyperkalemia and hypokalemia etiol ?? Adrenal insufficiency?? Hx of Orthostatic Hypotension at NH ACTH Cortisol level ?? Florinef d/c Endo and Nephrology Consult Sick Euthyroid syndrome Endo Anemia etiol? Transfusion Chronic chest wall pain Pain meds
[2016-11-25 21:51] LABS: CORTISOL AM 33.7 ug/dL (4.46-22.7)
[2016-11-26] MEDS: Meropenem 500 MG in Sodium Chloride 0.9% 100 ML IVPB SCH ×2 (00:08→12:02)
[2016-11-26] MEDS: Acetaminophen 650mg/20.3ml solution UD PEG PRN (00:24)
[2016-11-26] MEDS: Albuterol-Ipratrop 3 mg / 0.5 (3 ml) UD INH SCH ×4 (01:00→19:30)
[2016-11-26 04:48] LABS: ABG ALLEN TEST YES; ABG MECHANICAL RATE 14; ARTERIAL BLOOD GAS HCO3 22.2 mmol/L (21-28); ARTERIAL BLOOD GAS MODE PRVC/AC; ARTERIAL BLOOD GAS O2 CAPACITY 10.7 mL/dL (16-24); ARTERIAL BLOOD GAS O2 CONTENT 10.6 ML/dL (15-23); ARTERIAL BLOOD GAS PH 7.38 (7.35-7.45); ARTERIAL BLOOD GAS PO2 169 mm/Hg (80-100); ARTERIAL BLOOD HGB O2 SAT 96.9 % (95.0-98.0); ATERIAL BLOOD GAS PEEP 5; CARBOXYHEMOGLOBIN 0.6 % (0.5-1.5); HHB 0.8 % (0.0-5.0); METHEMOGLOBIN 1.7 % (0.0-3.0)
[2016-11-26 05:07] LABS: BASO % 0.2 % (0.0-2.0); HEMATOCRIT 23.5 % (35.0-51.0); LYMPH # 0.5 K/uL (1.0-4.3); LYMPH % 3.4 % (20.0-40.0); MEAN CELL VOLUME 89.7 fl (80.0-94.0); MEAN CORPUSCULAR HEMOGLOBIN 27.9 pg (27.0-31.0); MEAN CORPUSCULAR HGB CONC 31.1 g/dL (33.0-37.0); MEAN PLATELET VOLUME 8.8 fl (7.2-11.7); MONO # 0.5 K/uL (0.0-0.8); MONO % 2.8 % (0.0-10.0); NEUT # 14.9 K/uL (1.8-7.0); NEUT % 93.6 % (50.0-75.0); PLATELET COUNT 173 K/uL (130-400); RED CELL DISTRIBUTION WIDTH 17.1 % (11.5-14.5); WHITE BLOOD COUNT 15.9 K/uL (4.8-10.8)
[2016-11-26 05:16] LABS: ALB/GLOB RATIO 0.9 (1.0-2.1); BILIRUBIN,TOTAL 0.5 mg/dl (0.2-1.3); CALCIUM 8.1 mg/dL (8.4-10.2); POTASSIUM 3.8 MMOL/L (3.6-5.0); TOTAL PROTEIN 4.9 G/DL (6.3-8.2)
[2016-11-26 06:44] LABS: NEUTROPHIL 93 % (42-75); TOTAL CELLS COUNTED 100
[2016-11-26 06:48] LABS: PLATELET CLUMPS PRESENT
[2016-11-26] MEDS: Acetylcysteine 10% 4 ML IH SCH ×2 (08:09→19:30)
[2016-11-26] MEDS: Cefepime 1 GM in Sodium Chloride 0.9% 100 ML IVPB SCH (08:25)
[2016-11-26] MEDS: Ferrous Sulfate 300 mg/5 mL Liq UD PEG SCH (08:28)
[2016-11-26] MEDS: Pantoprazole 40 mg Susp UD PEG SCH (08:28)
[2016-11-26] MEDS: Sucralfate 1 gm/10 ml Oral Susp UD PEG SCH ×3 (08:28→16:15)
[2016-11-26] MEDS: Megestrol Acetate 40 mg/ml Cup PEG SCH (08:30)
[2016-11-26] MEDS: Proshield Plus GEL TOP SCH ×2 (08:31→20:11)
[2016-11-26] MEDS: Santyl Collagenase OINTMENT TOP SCH ×2 (09:04→20:12)
--- NOTE | 2016-11-26 10:03 | CP.PCM.PN ---
Subjective - Date & Time of Evaluation Date of Evaluation: 11/26/16 Time of Evaluation: 10:00 - Subjective Subjective: Interim events reviewed. Remains unresponsive, mechanically ventilated. Still tachypneic and tachycardic with paradoxical abdominal movement. SpO2 remains at 100%, mildly hypertensive. Sputum volume has decreased significantly, pale garcia in color. Gram stain of sputum; Gm neg rods, ID pending. On merem, cefepime and vanco. Leukocytosis 15+. LFT's improving. No dullness on chest percussion anteriorly, no subcut emphysema. ASH31bb, plateau 28cm, RR14/30. FiO2.45, SpO2 100%. Breath sounds present bilaterally with scattered sonorous rhonchi in dependant zones. No audible wheezes or bronchial breath sounds. Few medium rales in lower lobes bilaterally. Heart sounds are distant, tachy. +dependant edema noted. No jaundice or cyanosis. No ventilator changes contemplated at this time. Awaiting sputum ID. Same antibiotic regimen for now. Continue aerosol therapy. CT brain? Objective - Vital Signs/Intake and Output Vital Signs (last 24 hours): Temp Pulse Resp BP Pulse Ox 99.6 F 108 H 24 160/96 H 100 11/26/16 09:00 11/26/16 09:00 11/26/16 09:00 11/26/16 09:00 11/26/16 09:00 Intake and Output: 11/25/16 11/26/16 23:59 11:59 Intake Total 690 610 Output Total 400 Balance 690 210 - Medications Medications: Current Medications Acetaminophen (Tylenol 650mg/20.3ml Solution Ud) 650 mg PEG Q4 PRN PRN Reason: Pain, moderate (4-7) Last Admin: 11/25/16 11:50 Dose: 650 mg Acetaminophen (Tylenol 650mg/20.3ml Solution Ud) 650 mg PEG Q4 PRN PRN Reason: Fever >100.4 F Last Admin: 11/26/16 00:24 Dose: 650 mg Acetylcysteine (Mucomyst 10% 4ml) 2 ml IH RBID [facility] Last Admin: 11/26/16 08:09 Dose: 2 ml Albuterol Sulfate (Albuterol 0.083% Inhal Mary (2.5 Mg/3 Ml) Ud) 2.5 mg INH RQ4 PRN PRN Reason: Shortness of Breath Last Admin: 11/23/16 03:48 Dose: 2.5 mg Albuterol/Ipratropium (Duoneb 3 Mg/0.5 Mg (3 Ml) Ud) 3 ml INH RQ6 [facility] Last Admin: 11/26/16 08:09 Dose: 3 ml Amiodarone HCl (Cordarone) 200 mg PEG DAILY [facility] Last Admin: 11/26/16 08:26 Dose: 200 mg Aspirin (Aspirin Chewable) 81 mg PEG DAILY [facility] Last Admin: 11/26/16 08:36 Dose: 81 mg Collagenase (Santyl) 1 applic TOP 0900,2100 [facility] Last Admin: 11/26/16 09:04 Dose: 1 applic Dimethicone (Proshield Plus Skin Protectant) 1 applic TOP 0900,2100 [facility] Last Admin: 11/26/16 08:31 Dose: 1 applic Ferrous Sulfate (Feosol Liq) 450 mg PEG DAILY [facility] Last Admin: 11/26/16 08:28 Dose: 450 mg Fluticasone Propionate (Flonase) 2 spr JAKUB DAILY PRN PRN Reason: ALLERGY SYMPTOMS Gabapentin (Neurontin) 400 mg PEG BID [facility] Last Admin: 11/26/16 08:29 Dose: 400 mg Gabapentin (Neurontin) 400 mg PEG HS [facility] Last Admin: 11/25/16 21:11 Dose: 400 mg Vancomycin HCl 1 gm/ Sodium (Chloride) 250 mls @ 250 mls/hr IVPB DAILY [facility] Last Admin: 11/26/16 09:05 Dose: 250 mls/hr Cefepime HCl 1 gm/ Sodium (Chloride) 100 mls @ 100 mls/hr IVPB Q12 [facility] Last Admin: 11/26/16 08:25 Dose: 100 mls/hr Meropenem 500 mg/ Sodium (Chloride) 100 mls @ 100 mls/hr IVPB Q8 [facility] Last Admin: 11/26/16 00:08 Dose: 100 mls/hr Potassium Chloride 20 meq/ (Sodium Chloride) 1,010 mls @ 50 mls/hr IV .[id number] [facility] Stop: 11/26/16 18:49 Last Admin: 11/25/16 19:51 Dose: 50 mls/hr Megestrol Acetate (Megace) 400 mg PEG DAILY [facility] Last Admin: 11/26/16 08:30 Dose: 400 mg Metoclopramide HCl (Reglan) 10 mg PEG HS [facility] Last Admin: 11/25/16 21:11 Dose: 10 mg Metoprolol Tartrate (Lopressor) 12.5 mg PEG Q12 [facility] Last Admin: 11/26/16 08:29 Dose: 12.5 mg Ondansetron HCl (Zofran Odt) 4 mg PEG Q8 [facility] Last Admin: 11/24/16 16:40 Dose: 4 mg Pantoprazole Sodium (Protonix Susp) 40 mg PEG DAILY [facility] Last Admin: 11/26/16 08:28 Dose: 40 mg Silver Sulfadiazine (Silvadene 1% 50 Gm) 1 applic TOP 0900,2100 [facility] Last Admin: 11/25/16 21:10 Dose: 1 applic Sucralfate (Carafate Oral Susp) 1 gm PEG TID [facility] Last Admin: 11/26/16 08:28 Dose: 1 gm - Labs Labs: 11/26/16 04:45 11/26/16 04:45 PT 12.7 SECONDS (9.6-11.2) H 11/24/16 06:00 INR 1.22 (0.92-1.08) H 11/24/16 06:00 APTT 33.9 SECONDS (23.3-32.5) H D 11/24/16 06:00 Assessment and Plan (1) Respiratory failure with hypercapnia Status: Acute (2) Endotracheally intubated Status: Acute (3) On mechanically assisted ventilation Status: Acute (4) Pneumonia Status: Acute (5) COPD exacerbation Status: Acute
--- NOTE | 2016-11-26 10:10 | RAD ---
HISTORY: Pneumonia. Portable study 04:35. COMPARISON: Technique: Single view portable semi erect @ all November 25, 2016. FINDINGS: LUNGS: Improved aeration of the lungs. PLEURA: No significant pleural effusion identified, no pneumothorax apparent. CARDIOVASCULAR: No significant interval change compared to the prior examination(s). Venous access catheter in stable, satisfactory position. Endotracheal tube in stable position. OSSEOUS STRUCTURES: No significant abnormalities. VISUALIZED UPPER ABDOMEN: Normal. OTHER FINDINGS: None. IMPRESSION: Improving aeration of the lungs bilaterally.
[2016-11-26] MEDS: Silver Sulfadiazine 1% CREAM (50 gm) TOP SCH ×2 (10:19→20:12)
--- NOTE | 2016-11-26 11:12 | CP.PCM.PN ---
Subjective - Date & Time of Evaluation Date of Evaluation: 11/26/16 Time of Evaluation: 09:30 - Subjective Subjective: UNRESPONSIVE TO VERBAL STIMULE Objective - Vital Signs/Intake and Output Vital Signs (last 24 hours): Temp Pulse Resp BP Pulse Ox 99.6 F 105 H 30 H 149/86 100 11/26/16 09:00 11/26/16 11:00 11/26/16 11:00 11/26/16 11:00 11/26/16 11:00 Intake and Output: 11/26/16 11/26/16 06:59 18:59 Intake Total 1000 570 Output Total 400 Balance 600 570 - Medications Medications: Current Medications Acetaminophen (Tylenol 650mg/20.3ml Solution Ud) 650 mg PEG Q4 PRN PRN Reason: Pain, moderate (4-7) Last Admin: 11/25/16 11:50 Dose: 650 mg Acetaminophen (Tylenol 650mg/20.3ml Solution Ud) 650 mg PEG Q4 PRN PRN Reason: Fever >100.4 F Last Admin: 11/26/16 00:24 Dose: 650 mg Acetylcysteine (Mucomyst 10% 4ml) 2 ml IH RBID [facility] Last Admin: 11/26/16 08:09 Dose: 2 ml Albuterol Sulfate (Albuterol 0.083% Inhal Mary (2.5 Mg/3 Ml) Ud) 2.5 mg INH RQ4 PRN PRN Reason: Shortness of Breath Last Admin: 11/23/16 03:48 Dose: 2.5 mg Albuterol/Ipratropium (Duoneb 3 Mg/0.5 Mg (3 Ml) Ud) 3 ml INH RQ6 [facility] Last Admin: 11/26/16 08:09 Dose: 3 ml Amiodarone HCl (Cordarone) 200 mg PEG DAILY [facility] Last Admin: 11/26/16 08:26 Dose: 200 mg Aspirin (Aspirin Chewable) 81 mg PEG DAILY [facility] Last Admin: 11/26/16 08:36 Dose: 81 mg Collagenase (Santyl) 1 applic TOP 0900,2099 [facility] Last Admin: 11/26/16 09:04 Dose: 1 applic Dimethicone (Proshield Plus Skin Protectant) 1 applic TOP 00,2099 [facility] Last Admin: 11/26/16 08:31 Dose: 1 applic Ferrous Sulfate (Feosol Liq) 450 mg PEG DAILY [facility] Last Admin: 11/26/16 08:28 Dose: 450 mg Fluticasone Propionate (Flonase) 2 spr JAKUB DAILY PRN PRN Reason: ALLERGY SYMPTOMS Gabapentin (Neurontin) 400 mg PEG BID [facility] Last Admin: 11/26/16 08:29 Dose: 400 mg Gabapentin (Neurontin) 400 mg PEG HS [facility] Last Admin: 11/25/16 21:11 Dose: 400 mg Vancomycin HCl 1 gm/ Sodium (Chloride) 250 mls @ 250 mls/hr IVPB DAILY [facility] Last Admin: 11/26/16 09:05 Dose: 250 mls/hr Cefepime HCl 1 gm/ Sodium (Chloride) 100 mls @ 100 mls/hr IVPB Q12 [facility] Last Admin: 11/26/16 08:25 Dose: 100 mls/hr Meropenem 500 mg/ Sodium (Chloride) 100 mls @ 100 mls/hr IVPB Q8 [facility] Last Admin: 11/26/16 00:08 Dose: 100 mls/hr Potassium Chloride 20 meq/ (Sodium Chloride) 1,010 mls @ 50 mls/hr IV .[id number] [facility] Stop: 11/26/16 18:49 Last Admin: 11/25/16 19:51 Dose: 50 mls/hr Megestrol Acetate (Megace) 400 mg PEG DAILY [facility] Last Admin: 11/26/16 08:30 Dose: 400 mg Metoclopramide HCl (Reglan) 10 mg PEG HS [facility] Last Admin: 11/25/16 21:11 Dose: 10 mg Metoprolol Tartrate (Lopressor) 12.5 mg PEG Q12 [facility] Last Admin: 11/26/16 08:29 Dose: 12.5 mg Ondansetron HCl (Zofran Odt) 4 mg PEG Q8 [facility] Last Admin: 11/24/16 16:40 Dose: 4 mg Pantoprazole Sodium (Protonix Susp) 40 mg PEG DAILY [facility] Last Admin: 11/26/16 08:28 Dose: 40 mg Silver Sulfadiazine (Silvadene 1% 50 Gm) 1 applic TOP 0900,2100 [facility] Last Admin: 11/26/16 10:19 Dose: 1 applic Sucralfate (Carafate Oral Susp) 1 gm PEG TID [facility] Last Admin: 11/26/16 08:28 Dose: 1 gm - Labs Labs: 11/26/16 04:45 05/10/17 04:45 PT 12.7 SECONDS (9.6-11.2) H 11/24/16 06:00 INR 1.22 (0.92-1.08) H 11/24/16 06:00 APTT 33.9 SECONDS (23.3-32.5) H D 11/24/16 06:00 - Respiratory Exam Respiratory Exam: Rales, Rhonchi - Cardiovascular Exam Cardiovascular Exam: Tachycardia, REGULAR RHYTHM, +S1, +S2 - Extremities Exam Extremities Exam: Normal Inspection - Additional Findings Additional findings: [facility], R 105 WBC 15.9 Assessment and Plan - Assessment and Plan (Free Text) Assessment: COPD ECACERBATION WITH HYPERCAPNEA AND REPIRATORY FAILURE PNEUMONIA CAD S/P ATRIAL FIBRILLATION Plan: CONTINUE MV, IV ANTIBIOTICS, AMIODARONE, METOPTOLOL, ASPIRIN
--- NOTE | 2016-11-26 11:29 | CP.CCUPN ---
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 Fever spike to 103F overnight, BP 140-85, HR 89, RR as above. 24H I/Os = 1935/400 ml. ROS: All pertinent Nursing notes and all other 10+ systems reviewed: otherwise as above. PMSFH: No other new pertinent information relative to current medical problems noted. No other distress noted: EXAM- HEENT: no icterus, pupils midline, equal and reactive, no nystagmus, NECK: no visible JVD, supple, carotids equal upstroke bilat/no bruits CHEST: decreased BS bases, no wheezes audible. HEART: regular, distant, S1S2, no murmur audible, no rubs. ABD: soft, flat, PEG intact, no increased distention, no focal tenderness, no HSM. BS hypoactive. EXT: trace LE edema, no peripheral/ digital cyanosis, no calf tenderness or palpable cords, distal pulses intact and symmetrical NEURO: +tone, no purposeful motor activity. SKIN: no rashes LABS: 7.38/36/169 Lactate = 5.1 on 11/24/16. WBC= 15.9 HGB= 7.3 PLTs = 173K Na= 141 K= 3.8 HCO3= 22 BUN/Cr= 56/2.3 BS= 109 AST / ALT/ Alk Phos =levels decreasing from yesterday Last Coags: 12.7/1.22/33.9 on 11/24/16. Trops negative x 2 Sputum 11/22/16 Klep pneumoniae Sens to Ty[place]cil and Gent. CXR: ETT position ok, R IJ TLC noted. Left CPA blunted, increased bibasilar interstitial markings (my interp). Assessment: 1. Wes-Asystole Code 2 Retained secretions /Cardiomyopathy 2. Acute Resp Insuff, r/o 2 Chronic Aspiration events due to PO meals with PEG feeds. 3. Coma 2 Anoxic Encephalopathy 4. Acute Anemia 2 non-Blood loss and Chronic Disease state. 5. Acute on Chronic Kidney Disease III, r/o ATN from recent Code Blue. PLAN: 1. See no feasibility for any MV weans at this time due to comatose state. 2. Agree with CT non-contrast Brain imaging, r/o CVA. Keep HOB elevated for now, seizure precautions, Neurochecks q2-4H. 3. Stopped Neurontin. 4. H/o Cardiomyopathy noted, whereby patient / family refused ACID recommendations in the past. On Amiodarone, Lopressor. Last Lactate level 5.1 on 11/24/16, check repeat level today. 5. s/p 1unit PRBCs ordered yesterday evening. No hypoxemia or hypotension now , otherwise more PRBCs as per PMD, or if repeat HGB falls further below 7.0. 6. Empiric Cefepime and Vanco. Consider narrowing coverage down to Vanco and Gent for Kleb coverage. Check Vanco levels in AM. Discuss with ID. 7. Fever spike to 103F overnight, ?? centrally-mediated fevers versus infection?? Check Procalcitonin level. 8. Adjust / watch medication dosing given new renal insufficiency. 9. Stopped Megace. Glucerna feeds noted, goal is 60 ml/hr. 10. Pall Care eval appears appropriate.
[2016-11-26 12:15] LABS: HEMATOCRIT 24.2 % (35.0-51.0); MEAN CELL VOLUME 88.7 fl (80.0-94.0); MEAN CORPUSCULAR HEMOGLOBIN 28.8 pg (27.0-31.0); MEAN CORPUSCULAR HGB CONC 32.5 g/dL (33.0-37.0); RED CELL DISTRIBUTION WIDTH 16.3 % (11.5-14.5); WHITE BLOOD COUNT 14.1 K/uL (4.8-10.8)
--- NOTE | 2016-11-26 13:22 | CT ---
PROCEDURE: CT HEAD WITHOUT CONTRAST. HISTORY: s/p Code Blue, r/o Acute CVA COMPARISON: Head CT without contrast performed 07/15/16 TECHNIQUE: Axial computed tomography images were obtained through the head/brain without intravenous contrast. Radiation dose: Total exam DLP = 1308.64 mGy-cm. This CT exam was performed using one or more of the following dose reduction techniques: Automated exposure control, adjustment of the mA and/or kV according to patient size, and/or use of iterative reconstruction technique. FINDINGS: Partially imaged endotracheal tube. HEMORRHAGE: No intracranial hemorrhage. BRAIN: Diffuse atrophy with prominence of the ventricles and sulci noted. No mass effect or edema. Scattered periventricular and subcortical white matter hypodensities, which are nonspecific, but often seen with chronic microvascular ischemic disease. Please note that MRI with diffusion imaging is more sensitive in the detection of acute ischemic event. VENTRICLES: No hydrocephalus. CALVARIUM: Unremarkable. PARANASAL SINUSES: Mucosal thickening/ trace fluid within bilateral maxillary sinuses. Mucosal thickening of the ethmoid air cells. MASTOID AIR CELLS: Unremarkable as visualized. No inflammatory changes. OTHER FINDINGS: None. IMPRESSION: Nonspecific white matter changes. Additional findings as above.
--- NOTE | 2016-11-26 14:00 | CP.PCM.PN ---
Subjective - Date & Time of Evaluation Date of Evaluation: 11/26/16 Time of Evaluation: 08:00 - Subjective Subjective: GROWING mdro- kLEBS IN SPUTUM LAB DID NOT CALL US TO INFORM OF THIS Objective - Vital Signs/Intake and Output Vital Signs (last 24 hours): Temp Pulse Resp BP Pulse Ox 99.6 F 113 H 27 H 124/79 97 11/26/16 12:00 11/26/16 13:00 11/26/16 13:00 11/26/16 13:00 11/26/16 13:00 Intake and Output: 11/26/16 11/26/16 06:59 18:59 Intake Total 1000 850 Output Total 400 Balance 600 850 - Medications Medications: Current Medications Acetaminophen (Tylenol 650mg/20.3ml Solution Ud) 650 mg PEG Q4 PRN PRN Reason: Pain, moderate (4-7) Last Admin: 11/25/16 11:50 Dose: 650 mg Acetaminophen (Tylenol 650mg/20.3ml Solution Ud) 650 mg PEG Q4 PRN PRN Reason: Fever >100.4 F Last Admin: 11/26/16 00:24 Dose: 650 mg Acetylcysteine (Mucomyst 10% 4ml) 2 ml IH RBID [facility] Last Admin: 11/26/16 08:09 Dose: 2 ml Albuterol Sulfate (Albuterol 0.083% Inhal Mary (2.5 Mg/3 Ml) Ud) 2.5 mg INH RQ4 PRN PRN Reason: Shortness of Breath Last Admin: 11/23/16 03:48 Dose: 2.5 mg Albuterol/Ipratropium (Duoneb 3 Mg/0.5 Mg (3 Ml) Ud) 3 ml INH RQ6 [facility] Last Admin: 11/26/16 13:03 Dose: 3 ml Amiodarone HCl (Cordarone) 200 mg PEG DAILY [facility] Last Admin: 11/26/16 08:26 Dose: 200 mg Aspirin (Aspirin Chewable) 81 mg PEG DAILY [facility] Last Admin: 11/26/16 08:36 Dose: 81 mg Collagenase (Santyl) 1 applic TOP 09,2099 [facility] Last Admin: 11/26/16 09:04 Dose: 1 applic Dimethicone (Proshield Plus Skin Protectant) 1 applic TOP 00,2099 [facility] Last Admin: 11/26/16 08:31 Dose: 1 applic Ferrous Sulfate (Feosol Liq) 450 mg PEG DAILY [facility] Last Admin: 11/26/16 08:28 Dose: 450 mg Fluticasone Propionate (Flonase) 2 spr JAKUB DAILY PRN PRN Reason: ALLERGY SYMPTOMS Vancomycin HCl 1 gm/ Sodium (Chloride) 250 mls @ 250 mls/hr IVPB DAILY [facility] Last Admin: 11/26/16 09:05 Dose: 250 mls/hr Cefepime HCl 1 gm/ Sodium (Chloride) 100 mls @ 100 mls/hr IVPB Q12 [facility] Last Admin: 11/26/16 08:25 Dose: 100 mls/hr Meropenem 500 mg/ Sodium (Chloride) 100 mls @ 100 mls/hr IVPB Q8 [facility] Last Admin: 11/26/16 12:02 Dose: 100 mls/hr Metoclopramide HCl (Reglan) 10 mg PEG HS [facility] Last Admin: 11/25/16 21:11 Dose: 10 mg Metoprolol Tartrate (Lopressor) 12.5 mg PEG Q12 [facility] Last Admin: 11/26/16 08:29 Dose: 12.5 mg Ondansetron HCl (Zofran Odt) 4 mg PEG Q8 [facility] Last Admin: 11/24/16 16:40 Dose: 4 mg Pantoprazole Sodium (Protonix Susp) 40 mg PEG DAILY [facility] Last Admin: 11/26/16 08:28 Dose: 40 mg Silver Sulfadiazine (Silvadene 1% 50 Gm) 1 applic TOP 0900,2100 [facility] Last Admin: 11/26/16 10:19 Dose: 1 applic Sucralfate (Carafate Oral Susp) 1 gm PEG TID [facility] Last Admin: 11/26/16 12:05 Dose: 1 gm - Labs Labs: 11/26/16 12:09 11/26/16 04:45 PT 12.7 SECONDS (9.6-11.2) H 11/24/16 06:00 INR 1.22 (0.92-1.08) H 11/24/16 06:00 APTT 33.9 SECONDS (23.3-32.5) H D 11/24/16 06:00 - Constitutional Appears: Confused, Cachectic, Chronically Ill - Head Exam Head Exam: ATRAUMATIC, NORMAL INSPECTION, NORMOCEPHALIC Additional comments: INTUBATED - Eye Exam Eye Exam: EOMI, PERRL. absent: Scleral icterus - ENT Exam ENT Exam: Mucous Membranes Dry - Neck Exam Neck Exam: absent: Lymphadenopathy - Respiratory Exam Respiratory Exam: Decreased Breath Sounds, Rales, Rhonchi - Cardiovascular Exam Cardiovascular Exam: REGULAR RHYTHM, +S1, +S2 Assessment and Plan (1) COPD (chronic obstructive pulmonary disease) with acute bronchitis Status: Acute (2) Atrial fibrillation Status: Acute (3) CHF (congestive heart failure) Status: Acute (4) Dehydration Status: Acute (5) Moderate COPD (chronic obstructive pulmonary disease) Status: Acute (6) PAD (peripheral artery disease) Status: Acute (7) Pneumonia Status: Acute (8) COPD (chronic obstructive pulmonary disease) Status: Chronic (9) COPD exacerbation Status: Acute
--- NOTE | 2016-11-26 16:50 | PN ---
DATE: 11/26/2016 ROOM: 423 ICU This is a 71-year-old male with recurrent aspiration pneumonia and underlying exacerbation of COPD, n ow being followed closely in the ICU for hemodynamic monitoring and is also being followed closely fo r metabolic followup. He also has underlying bacteremia and Klebsiella in the sputum as noted with o ngoing IV antibiotic management as given. His latest chemistries showed a BUN of 56, sodium 141, pot assium 3.8, chloride 108, CO2 of 22, glucose 109, and creatinine 2.3. His latest thyroid studies karime wed a T4 of 4.31 with a free T4 of 2.32 and a TSH of 0.21, all indicative of the so-called acute sick euthyroid syndrome with transient TSH suppression from the steroid therapy as previously given. His serum cortisol level is 33.7 as noted. So, at this time, as he remains clinically and biochemically euthyroid, there is no indication for an y kind of initiation of levothyroxine replacement therapy. We will obtain serial chemistries and ser ial thyroid studies and supplement accordingly as needed. We will follow. Anabella Sebastian MD cc: [id number] TT: 11/26/2016 16:49:12 Confirmation # [id number] Dictation # [id number]
--- NOTE | 2016-11-26 18:27 | CP.PCM.PN ---
Subjective - Date & Time of Evaluation Date of Evaluation: 11/26/16 Time of Evaluation: 22:22 - Subjective Subjective: Temp 103 No change in MS Objective - Vital Signs/Intake and Output Vital Signs (last 24 hours): Temp Pulse Resp BP Pulse Ox 98.7 F 109 H 32 H 139/86 98 11/26/16 15:46 11/26/16 18:00 11/26/16 18:00 11/26/16 18:00 11/26/16 18:00 Intake and Output: 11/26/16 11/26/16 06:59 18:59 Intake Total 1000 1615 Output Total 400 500 Balance 600 1115 - Medications Medications: Current Medications Acetaminophen (Tylenol 650mg/20.3ml Solution Ud) 650 mg PEG Q4 PRN PRN Reason: Pain, moderate (4-7) Last Admin: 11/25/16 11:50 Dose: 650 mg Acetaminophen (Tylenol 650mg/20.3ml Solution Ud) 650 mg PEG Q4 PRN PRN Reason: Fever >100.4 F Last Admin: 11/26/16 00:24 Dose: 650 mg Acetylcysteine (Mucomyst 10% 4ml) 2 ml IH RBID [facility] Last Admin: 11/26/16 08:09 Dose: 2 ml Albuterol Sulfate (Albuterol 0.083% Inhal Mary (2.5 Mg/3 Ml) Ud) 2.5 mg INH RQ4 PRN PRN Reason: Shortness of Breath Last Admin: 11/23/16 03:48 Dose: 2.5 mg Albuterol/Ipratropium (Duoneb 3 Mg/0.5 Mg (3 Ml) Ud) 3 ml INH RQ6 [facility] Last Admin: 11/26/16 13:03 Dose: 3 ml Amiodarone HCl (Cordarone) 200 mg PEG DAILY [facility] Last Admin: 11/26/16 08:26 Dose: 200 mg Aspirin (Aspirin Chewable) 81 mg PEG DAILY [facility] Last Admin: 11/26/16 08:36 Dose: 81 mg Collagenase (Santyl) 1 applic TOP 0900,2100 [facility] Last Admin: 11/26/16 09:04 Dose: 1 applic Dimethicone (Proshield Plus Skin Protectant) 1 applic TOP 00,2099 [facility] Last Admin: 11/26/16 08:31 Dose: 1 applic Ferrous Sulfate (Feosol Liq) 450 mg PEG DAILY [facility] Last Admin: 11/26/16 08:28 Dose: 450 mg Fluticasone Propionate (Flonase) 2 spr JAKUB DAILY PRN PRN Reason: ALLERGY SYMPTOMS Tigecycline 50 mg/ Sodium (Chloride) 100 mls @ 100 mls/hr IVPB Q12@0400,1600 [facility] Metoclopramide HCl (Reglan) 10 mg PEG HS [facility] Last Admin: 11/25/16 21:11 Dose: 10 mg Metoprolol Tartrate (Lopressor) 12.5 mg PEG Q12 [facility] Last Admin: 11/26/16 08:29 Dose: 12.5 mg Ondansetron HCl (Zofran Odt) 4 mg PEG Q8 [facility] Last Admin: 11/24/16 16:40 Dose: 4 mg Pantoprazole Sodium (Protonix Susp) 40 mg PEG DAILY [facility] Last Admin: 11/26/16 08:28 Dose: 40 mg Silver Sulfadiazine (Silvadene 1% 50 Gm) 1 applic TOP 0900,2100 [facility] Last Admin: 11/26/16 10:19 Dose: 1 applic Sucralfate (Carafate Oral Susp) 1 gm PEG TID [facility] Last Admin: 11/26/16 16:15 Dose: 1 gm - Labs Labs: 11/26/16 12:09 11/26/16 04:45 PT 12.7 SECONDS (9.6-11.2) H 11/24/16 06:00 INR 1.22 (0.92-1.08) H 11/24/16 06:00 APTT 33.9 SECONDS (23.3-32.5) H D 11/24/16 06:00 - Respiratory Exam Respiratory Exam: NORMAL BREATHING PATTERN - Cardiovascular Exam Cardiovascular Exam: REGULAR RHYTHM - GI/Abdominal Exam GI & Abdominal Exam: Normal Bowel Sounds Assessment and Plan - Assessment and Plan (Free Text) Assessment: Acute Respiratory Failure Asystole Intubated Ventillatory support Aspiration?? HX COPD S/P Klebsiella RLL Pneumonia? S/P L pneumothorax ABX IVF Steroids ?? Pulmonary ID Swallowing?? aspiration?? PEG Jevity and oral feedings Hx s/p + C-diff + Ag -toxin Hx Dec oral intake improved on Megace S/P Asystole 2 to Pulmonary dx (S/P V-fib/ V-tach 2 to pulmonary dx) A-fib CAD S/P CABG Amiodorone Cardiology SMITA/ CKD HX Hyperkalemia and hypokalemia etiol ?? Adrenal insufficiency?? Hx of Orthostatic Hypotension at NH ACTH Cortisol level ?? Eamon d/c Endo and Nephrology Consult Sick Euthyroid syndrome Endo Anemia etiol? Transfusion Chronic chest wall pain Pain meds
[2016-11-27] MEDS: Albuterol-Ipratrop 3 mg / 0.5 (3 ml) UD INH SCH ×4 (01:13→19:28)
[2016-11-27] MEDS: Acetaminophen 650mg/20.3ml solution UD PEG PRN ×2 (02:45→19:45)
[2016-11-27 05:23] LABS: ABG ALLEN TEST YES; ABG MECHANICAL RATE 14; ARTERIAL BLOOD GAS HCO3 24.3 mmol/L (21-28); ARTERIAL BLOOD GAS MODE A/C; ARTERIAL BLOOD GAS PH 7.49 (7.35-7.45); ARTERIAL BLOOD GAS PO2 206 mm/Hg (80-100); ATERIAL BLOOD GAS PEEP 5
[2016-11-27 05:45] LABS: BASO % 0.3 % (0.0-2.0); HEMATOCRIT 25.7 % (35.0-51.0); LYMPH # 0.8 K/uL (1.0-4.3); LYMPH % 5.8 % (20.0-40.0); MEAN CELL VOLUME 89.4 fl (80.0-94.0); MEAN CORPUSCULAR HEMOGLOBIN 28.4 pg (27.0-31.0); MEAN CORPUSCULAR HGB CONC 31.8 g/dL (33.0-37.0); MEAN PLATELET VOLUME 9.1 fl (7.2-11.7); MONO # 0.6 K/uL (0.0-0.8); MONO % 4.4 % (0.0-10.0); NEUT # 12.2 K/uL (1.8-7.0); NEUT % 89.5 % (50.0-75.0); NRBC % 0.1 % (0.0-0.0); RED CELL DISTRIBUTION WIDTH 16.7 % (11.5-14.5); WHITE BLOOD COUNT 13.7 K/uL (4.8-10.8)
[2016-11-27 06:05] LABS: ALB/GLOB RATIO 0.9 (1.0-2.1); BILIRUBIN,TOTAL 0.5 mg/dl (0.2-1.3); CALCIUM 8.4 mg/dL (8.4-10.2); POTASSIUM 4.1 MMOL/L (3.6-5.0); TOTAL PROTEIN 4.9 G/DL (6.3-8.2)
[2016-11-27] MEDS: Acetylcysteine 10% 4 ML IH SCH ×2 (09:08→19:29)
--- NOTE | 2016-11-27 09:19 | CP.PCM.PN ---
Subjective - Date & Time of Evaluation Date of Evaluation: 11/27/16 Time of Evaluation: 09:15 - Subjective Subjective: Seen on AM rounds. Remains clinically unchanged. Unresponsive and orally intubated/mechanically ventilated. Had temp spike yesterday up to 103degrees. MDR Klebsiella cultured from sputum, started on Tygecillin by ID. Procalcitonin very elevated. CXR essentially unchanged w/o and discreet area of consolidation, patchy increased markings and an elevated left hemidiaphragm. SpO2 100% but he remains tachypneic 26BPM. Respiratory alkalosis with good oxygenation. CT brain unremarkable. No dullness or subcut emphysema on exam. Breath sounds are present bilaterally with few medium rales in the left base posteriorly. No audible wheezes or bronchial breath sounds. + dependant edema, no cyanosis. Source of sepsis seems most probably from the lung with MDR Klebsiella cultured. Antibiotic change made yesterday. Ischemic encephalopathy w/o signs of improvement to date. Prognosis for recovery is poor. Objective - Vital Signs/Intake and Output Vital Signs (last 24 hours): Temp Pulse Resp BP Pulse Ox 97.7 F 109 H 21 156/99 H 100 11/27/16 08:00 11/27/16 08:00 11/27/16 08:00 11/27/16 08:00 11/27/16 08:00 Intake and Output: 11/26/16 11/27/16 23:59 11:59 Intake Total 1289 732 Output Total 530 480 Balance 759 252 - Medications Medications: Current Medications Acetaminophen (Tylenol 650mg/20.3ml Solution Ud) 650 mg PEG Q4 PRN PRN Reason: Pain, moderate (4-7) Last Admin: 11/25/16 11:50 Dose: 650 mg Acetaminophen (Tylenol 650mg/20.3ml Solution Ud) 650 mg PEG Q4 PRN PRN Reason: Fever >100.4 F Last Admin: 11/27/16 02:45 Dose: 650 mg Acetylcysteine (Mucomyst 10% 4ml) 2 ml IH RBID [facility] Last Admin: 11/27/16 09:08 Dose: 2 ml Albuterol Sulfate (Albuterol 0.083% Inhal Mary (2.5 Mg/3 Ml) Ud) 2.5 mg INH RQ4 PRN PRN Reason: Shortness of Breath Last Admin: 11/23/16 03:48 Dose: 2.5 mg Albuterol/Ipratropium (Duoneb 3 Mg/0.5 Mg (3 Ml) Ud) 3 ml INH RQ6 [facility] Last Admin: 11/27/16 09:08 Dose: 3 ml Amiodarone HCl (Cordarone) 200 mg PEG DAILY [facility] Last Admin: 11/26/16 08:26 Dose: 200 mg Aspirin (Aspirin Chewable) 81 mg PEG DAILY [facility] Last Admin: 11/26/16 08:36 Dose: 81 mg Collagenase (Santyl) 1 applic TOP 0900,2100 [facility] Last Admin: 11/26/16 20:12 Dose: 1 applic Dimethicone (Proshield Plus Skin Protectant) 1 applic TOP 0900,2100 [facility] Last Admin: 11/26/16 20:11 Dose: 1 applic Ferrous Sulfate (Feosol Liq) 450 mg PEG DAILY [facility] Last Admin: 11/26/16 08:28 Dose: 450 mg Fluticasone Propionate (Flonase) 2 spr JAKUB DAILY PRN PRN Reason: ALLERGY SYMPTOMS Tigecycline 50 mg/ Sodium (Chloride) 100 mls @ 100 mls/hr IVPB Q12@0400,1600 [facility] Last Admin: 11/27/16 04:44 Dose: 100 mls/hr Metoclopramide HCl (Reglan) 10 mg PEG HS [facility] Last Admin: 11/26/16 21:25 Dose: 10 mg Metoprolol Tartrate (Lopressor) 12.5 mg PEG Q12 [facility] Last Admin: 11/26/16 20:11 Dose: 12.5 mg Ondansetron HCl (Zofran Odt) 4 mg PEG Q8 [facility] Last Admin: 11/24/16 16:40 Dose: 4 mg Pantoprazole Sodium (Protonix Susp) 40 mg PEG DAILY [facility] Last Admin: 11/26/16 08:28 Dose: 40 mg Silver Sulfadiazine (Silvadene 1% 50 Gm) 1 applic TOP 0900,2100 [facility] Last Admin: 11/26/16 20:12 Dose: 1 applic Sucralfate (Carafate Oral Susp) 1 gm PEG TID [facility] Last Admin: 11/26/16 16:15 Dose: 1 gm - Labs Labs: 11/27/16 04:15 11/27/16 04:15 PT 12.7 SECONDS (9.6-11.2) H 11/24/16 06:00 INR 1.22 (0.92-1.08) H 11/24/16 06:00 APTT 33.9 SECONDS (23.3-32.5) H D 11/24/16 06:00 Assessment and Plan (1) Respiratory failure with hypercapnia Status: Acute (2) Endotracheally intubated Status: Acute (3) On mechanically assisted ventilation Status: Acute (4) Pneumonia Status: Acute (5) COPD exacerbation Status: Acute
--- NOTE | 2016-11-27 09:46 | CP.PCM.PN ---
Subjective - Date & Time of Evaluation Date of Evaluation: 11/27/16 Time of Evaluation: 08:15 - Subjective Subjective: UNRESPONSIVE Objective - Vital Signs/Intake and Output Vital Signs (last 24 hours): Temp Pulse Resp BP Pulse Ox 97.7 F 109 H 21 156/99 H 100 11/27/16 08:00 11/27/16 08:00 11/27/16 08:00 11/27/16 08:00 11/27/16 08:00 Intake and Output: 11/27/16 11/27/16 06:59 18:59 Intake Total 976 Output Total 510 Balance 466 - Medications Medications: Current Medications Acetaminophen (Tylenol 650mg/20.3ml Solution Ud) 650 mg PEG Q4 PRN PRN Reason: Pain, moderate (4-7) Last Admin: 11/25/16 11:50 Dose: 650 mg Acetaminophen (Tylenol 650mg/20.3ml Solution Ud) 650 mg PEG Q4 PRN PRN Reason: Fever >100.4 F Last Admin: 11/27/16 02:45 Dose: 650 mg Acetylcysteine (Mucomyst 10% 4ml) 2 ml IH RBID [facility] Last Admin: 11/27/16 09:08 Dose: 2 ml Albuterol Sulfate (Albuterol 0.083% Inhal Mary (2.5 Mg/3 Ml) Ud) 2.5 mg INH RQ4 PRN PRN Reason: Shortness of Breath Last Admin: 11/23/16 03:48 Dose: 2.5 mg Albuterol/Ipratropium (Duoneb 3 Mg/0.5 Mg (3 Ml) Ud) 3 ml INH RQ6 [facility] Last Admin: 11/27/16 09:08 Dose: 3 ml Amiodarone HCl (Cordarone) 200 mg PEG DAILY [facility] Last Admin: 11/26/16 08:26 Dose: 200 mg Aspirin (Aspirin Chewable) 81 mg PEG DAILY [facility] Last Admin: 11/26/16 08:36 Dose: 81 mg Collagenase (Santyl) 1 applic TOP 0900,2100 [facility] Last Admin: 11/26/16 20:12 Dose: 1 applic Dimethicone (Proshield Plus Skin Protectant) 1 applic TOP 0900,2100 [facility] Last Admin: 11/26/16 20:11 Dose: 1 applic Ferrous Sulfate (Feosol Liq) 450 mg PEG DAILY [facility] Last Admin: 11/26/16 08:28 Dose: 450 mg Fluticasone Propionate (Flonase) 2 spr JAKUB DAILY PRN PRN Reason: ALLERGY SYMPTOMS Tigecycline 50 mg/ Sodium (Chloride) 100 mls @ 100 mls/hr IVPB Q12@0400,1600 [facility] Last Admin: 11/27/16 04:44 Dose: 100 mls/hr Metoclopramide HCl (Reglan) 10 mg PEG HS [facility] Last Admin: 11/26/16 21:25 Dose: 10 mg Metoprolol Tartrate (Lopressor) 12.5 mg PEG Q12 [facility] Last Admin: 11/26/16 20:11 Dose: 12.5 mg Ondansetron HCl (Zofran Odt) 4 mg PEG Q8 [facility] Last Admin: 11/24/16 16:40 Dose: 4 mg Pantoprazole Sodium (Protonix Susp) 40 mg PEG DAILY [facility] Last Admin: 11/26/16 08:28 Dose: 40 mg Silver Sulfadiazine (Silvadene 1% 50 Gm) 1 applic TOP 0900,2100 [facility] Last Admin: 11/26/16 20:12 Dose: 1 applic Sucralfate (Carafate Oral Susp) 1 gm PEG TID [facility] Last Admin: 11/26/16 16:15 Dose: 1 gm - Labs Labs: 11/27/16 04:15 11/27/16 04:15 PT 12.7 SECONDS (9.6-11.2) H 11/24/16 06:00 INR 1.22 (0.92-1.08) H 11/24/16 06:00 APTT 33.9 SECONDS (23.3-32.5) H D 11/24/16 06:00 - Respiratory Exam Respiratory Exam: Rales - Cardiovascular Exam Cardiovascular Exam: Tachycardia, Irregular Rhythm, +S1, +S2 - Extremities Exam Extremities Exam: Normal Inspection - Additional Findings Additional findings: BEER BREWER ATRIAL FIBRILLATION, R 100 CT OF HEAD REPORT NOTED WITH ISCHEMIC CHANGES PULMONARY NOTES SEEN WITH SPUTUM GROWING KLEBSIELLA Assessment and Plan - Assessment and Plan (Free Text) Assessment: PNEUMONIA COPD WITH REPIRATORY FAILURE CAD ATRIAL FIBRILLATION VERY GUARDED PROGNOSIS Plan: CONTINUE MV, ANTIBIOTICS, AMIODARONE, ASPIRIN
[2016-11-27] MEDS: Sucralfate 1 gm/10 ml Oral Susp UD PEG SCH ×3 (09:49→17:14)
[2016-11-27] MEDS: Ferrous Sulfate 300 mg/5 mL Liq UD PEG SCH (09:51)
[2016-11-27] MEDS: Pantoprazole 40 mg Susp UD PEG SCH (09:59)
[2016-11-27] MEDS: Proshield Plus GEL TOP SCH ×2 (10:02→21:55)
[2016-11-27] MEDS: Santyl Collagenase OINTMENT TOP SCH ×2 (10:02→20:04)
[2016-11-27] MEDS: Silver Sulfadiazine 1% CREAM (50 gm) TOP SCH ×2 (10:03→21:54)
--- NOTE | 2016-11-27 10:03 | RAD ---
HISTORY: vented COMPARISON: Comparison is made to 11/26/2016 FINDINGS: LUNGS: Interval worsening of patchy opacities in the lungs since the previous exam. The ET tube is seen at appropriate position. PLEURA: Small right pleural effusion is again noted. CARDIOVASCULAR: Normal. OSSEOUS STRUCTURES: No significant abnormalities. VISUALIZED UPPER ABDOMEN: Normal. OTHER FINDINGS: Right jugular central line seen in place. IMPRESSION: Worsening patchy opacities in the lungs since the previous exam.
[2016-11-27] MEDS ORDERED: Dexamethasone 4 MG in Sodium Chloride 0.9% 50 ML IVPB SCH (12:45)
--- NOTE | 2016-11-27 13:14 | CP.CCUPN ---
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 Afebrile now, T max 100.9 overnight, BP 150/90, HR 9 in A Fib9, RR as above. 24H I/Os = 2591/1010ml. ROS: All pertinent Nursing notes and all other 10+ systems reviewed: otherwise as above. PMSFH: No other new pertinent information relative to current medical problems noted. No other distress noted: EXAM- HEENT: no icterus, pupils midline, equal and reactive, no nystagmus, NECK: no visible JVD, supple, carotids equal upstroke bilat/no bruits CHEST: decreased BS bases, no wheezes audible. HEART: regular, distant, S1S2, no murmur audible, no rubs. ABD: soft, flat, PEG intact, no increased distention, no focal tenderness, no HSM. BS hypoactive. EXT: trace LE edema, no peripheral/ digital cyanosis, no calf tenderness or palpable cords, distal pulses intact and symmetrical NEURO: +tone, no purposeful motor activity. SKIN: no rashes LABS: 7.49/28/206 Lactate = 1.0 via ABG. WBC= 13.7 HGB= 8.2 PLTs = 180K Na= 142 K= 4.1 HCO3= 21 BUN/Cr= 67/2.5 BS= 104 CXR: ETT position ok, R IJ TLC noted. Slight, increased bibasilar interstitial markings (my interp). Assessment: 1. Wes-Asystole Code 2 Retained secretions /Cardiomyopathy 2. Acute Resp Insuff, r/o 2 Chronic Aspiration events due to PO meals with PEG feeds. 3. Coma 2 Anoxic Encephalopathy 4. Acute Anemia 2 non-Blood loss and Chronic Disease state. 5. Acute on Chronic Kidney Disease III, r/o ATN from recent Code Blue. PLAN: 1. Still see no feasibility for any MV weans at this time due to comatose state. 2. No acute chnages seen on CT non-contrast Brain imaging to r/o CVA. Keep HOB elevated for now, seizure precautions, Neurochecks q2-4H. 3. Stopped Neurontin. 4. H/o Cardiomyopathy noted, whereby patient / family refused ACID recommendations in the past. On Amiodarone, Lopressor. Improved Lactate level 5.1 to 1.0 today. 5. Hgb still low. No hypoxemia or hypotension now, otherwise more PRBCs as per PMD, or if repeat HGB falls below 7.0. 6. On Tygacil for Kleb coverage. 7. No wlow greade fevers overnight overnight, ?? centrally-mediated fevers versus infection?? Checked Procalcitonin level = 26. 8. Adjust / watch medication dosing given new renal insufficiency. 9. Stopped Megace. Glucerna feeds noted, goal is 60 ml/hr. 10. Pall Care eval appears appropriate. Discussed with son and [id number] : chances of recovery dimmer with each day past 72H if he does not awaken.
--- NOTE | 2016-11-27 15:54 | PN ---
DATE: 11/27/2016 ROOM: 423 SUBJECTIVE: This is a 71-year-old male with recent acute exacerbation of COPD with ongoing managemen t for recurrent aspiration pneumonia and is now being followed closely for metabolic management. LABORATORY DATA: His latest chemistry showed a BUN of 67, sodium 142, potassium 4.1, chloride 110, C O2 21, glucose 104, and creatinine 2.5. His latest thyroid studies were indicative of the so-called acute sick euthyroid syndrome with no need for any kind of levothyroxine replacement therapy at this time. His latest liver function studies remain elevated, as noted. PLAN: So, will continue the present medical management at this time. He has been taken off Florinef medications and his potassium levels have normalized at this time. Will obtain serial chemistries a nd supplement accordingly as needed. Will follow patient. Anabella Sebastian MD cc: [id number] TT: 11/27/2016 15:54:06 Confirmation # [id number] Dictation # [id number] elisha
--- NOTE | 2016-11-27 18:11 | CP.PCM.PN ---
Subjective - Date & Time of Evaluation Date of Evaluation: 11/27/16 Time of Evaluation: 10:00 - Subjective Subjective: comatose on vent afebrile intubated iv rx renewed Objective - Vital Signs/Intake and Output Vital Signs (last 24 hours): Temp Pulse Resp BP Pulse Ox 97.4 F L 115 H 19 150/97 H 100 11/27/16 12:19 11/27/16 12:19 11/27/16 12:19 11/27/16 12:19 11/27/16 12:19 Intake and Output: 11/27/16 11/27/16 06:59 18:59 Intake Total 976 1050 Output Total 510 800 Balance 466 250 - Medications Medications: Current Medications Acetaminophen (Tylenol 650mg/20.3ml Solution Ud) 650 mg PEG Q4 PRN PRN Reason: Pain, moderate (4-7) Last Admin: 11/25/16 11:50 Dose: 650 mg Acetaminophen (Tylenol 650mg/20.3ml Solution Ud) 650 mg PEG Q4 PRN PRN Reason: Fever >100.4 F Last Admin: 11/27/16 02:45 Dose: 650 mg Acetylcysteine (Mucomyst 10% 4ml) 2 ml IH RBID [facility] Last Admin: 11/27/16 09:08 Dose: 2 ml Albuterol Sulfate (Albuterol 0.083% Inhal Mary (2.5 Mg/3 Ml) Ud) 2.5 mg INH RQ4 PRN PRN Reason: Shortness of Breath Last Admin: 11/23/16 03:48 Dose: 2.5 mg Albuterol/Ipratropium (Duoneb 3 Mg/0.5 Mg (3 Ml) Ud) 3 ml INH RQ6 [facility] Last Admin: 11/27/16 13:44 Dose: 3 ml Amiodarone HCl (Cordarone) 200 mg PEG DAILY [facility] Last Admin: 11/27/16 09:50 Dose: 200 mg Aspirin (Aspirin Chewable) 81 mg PEG DAILY [facility] Last Admin: 11/27/16 09:49 Dose: 81 mg Collagenase (Santyl) 1 applic TOP 899,2099 [facility] Last Admin: 11/27/16 10:02 Dose: 1 applic Dimethicone (Proshield Plus Skin Protectant) 1 applic TOP 899,2099 [facility] Last Admin: 11/27/16 10:02 Dose: 1 applic Ferrous Sulfate (Feosol Liq) 450 mg PEG DAILY [facility] Last Admin: 11/27/16 09:51 Dose: 450 mg Fluticasone Propionate (Flonase) 2 spr JAKUB DAILY PRN PRN Reason: ALLERGY SYMPTOMS Tigecycline 50 mg/ Sodium (Chloride) 100 mls @ 100 mls/hr IVPB Q12@0400,1600 [facility] Last Admin: 11/27/16 17:13 Dose: 100 mls/hr Dexamethasone 4 mg/ Sodium (Chloride) 51 mls @ 102 mls/hr IVPB Q12 [facility] Last Admin: 11/27/16 14:58 Dose: 102 mls/hr Metoclopramide HCl (Reglan) 10 mg PEG HS [facility] Last Admin: 11/26/16 21:25 Dose: 10 mg Metoprolol Tartrate (Lopressor) 12.5 mg PEG Q12 [facility] Last Admin: 11/27/16 09:59 Dose: 12.5 mg Ondansetron HCl (Zofran Odt) 4 mg PEG Q8 [facility] Last Admin: 11/24/16 16:40 Dose: 4 mg Pantoprazole Sodium (Protonix Susp) 40 mg PEG DAILY [facility] Last Admin: 11/27/16 09:59 Dose: 40 mg Silver Sulfadiazine (Silvadene 1% 50 Gm) 1 applic TOP 0900,2100 [facility] Last Admin: 11/27/16 10:03 Dose: 1 applic Sucralfate (Carafate Oral Susp) 1 gm PEG TID [facility] Last Admin: 11/27/16 17:14 Dose: 1 gm - Labs Labs: 11/27/16 04:15 11/27/16 04:15 PT 12.7 SECONDS (9.6-11.2) H 11/24/16 06:00 INR 1.22 (0.92-1.08) H 11/24/16 06:00 APTT 33.9 SECONDS (23.3-32.5) H D 11/24/16 06:00 - Constitutional Appears: Confused, Cachectic, Chronically Ill - Head Exam Head Exam: NORMOCEPHALIC - Eye Exam Eye Exam: PERRL. absent: Scleral icterus - ENT Exam ENT Exam: Mucous Membranes Dry - Neck Exam Neck Exam: absent: Lymphadenopathy - Respiratory Exam Respiratory Exam: Decreased Breath Sounds, Rhonchi - Cardiovascular Exam Cardiovascular Exam: REGULAR RHYTHM, +S1, +S2 - GI/Abdominal Exam GI & Abdominal Exam: Distended, Soft. absent: Tenderness - Rectal Exam Rectal Exam: Deferred - Exam Exam: NORMAL INSPECTION Assessment and Plan (1) COPD (chronic obstructive pulmonary disease) with acute bronchitis Status: Acute (2) Atrial fibrillation Status: Acute (3) CHF (congestive heart failure) Status: Acute (4) Dehydration Status: Acute (5) Moderate COPD (chronic obstructive pulmonary disease) Status: Acute (6) PAD (peripheral artery disease) Status: Acute (7) Pneumonia Status: Acute (8) COPD (chronic obstructive pulmonary disease) Status: Chronic (9) COPD exacerbation Status: Acute
--- NOTE | 2016-11-27 20:45 | CP.PCM.PN ---
Subjective - Date & Time of Evaluation Date of Evaluation: 11/27/16 Time of Evaluation: 22:22 - Subjective Subjective: Above noted Objective - Vital Signs/Intake and Output Vital Signs (last 24 hours): Temp Pulse Resp BP Pulse Ox 102 F H 120 H 21 148/98 H 98 11/27/16 20:00 11/27/16 20:01 11/27/16 20:00 11/27/16 20:01 11/27/16 20:00 Intake and Output: 11/27/16 11/28/16 18:59 06:59 Intake Total 1050 Output Total 800 Balance 250 - Medications Medications: Current Medications Acetaminophen (Tylenol 650mg/20.3ml Solution Ud) 650 mg PEG Q4 PRN PRN Reason: Pain, moderate (4-7) Last Admin: 11/25/16 11:50 Dose: 650 mg Acetaminophen (Tylenol 650mg/20.3ml Solution Ud) 650 mg PEG Q4 PRN PRN Reason: Fever >100.4 F Last Admin: 11/27/16 19:45 Dose: 650 mg Acetylcysteine (Mucomyst 10% 4ml) 2 ml IH RBID [facility] Last Admin: 11/27/16 19:29 Dose: 2 ml Albuterol Sulfate (Albuterol 0.083% Inhal Mary (2.5 Mg/3 Ml) Ud) 2.5 mg INH RQ4 PRN PRN Reason: Shortness of Breath Last Admin: 11/23/16 03:48 Dose: 2.5 mg Albuterol/Ipratropium (Duoneb 3 Mg/0.5 Mg (3 Ml) Ud) 3 ml INH RQ6 [facility] Last Admin: 11/27/16 19:28 Dose: 3 ml Amiodarone HCl (Cordarone) 200 mg PEG DAILY [facility] Last Admin: 11/27/16 09:50 Dose: 200 mg Aspirin (Aspirin Chewable) 81 mg PEG DAILY [facility] Last Admin: 11/27/16 09:49 Dose: 81 mg Collagenase (Santyl) 1 applic TOP 0900,2100 [facility] Last Admin: 11/27/16 20:04 Dose: 1 applic Dimethicone (Proshield Plus Skin Protectant) 1 applic TOP 0900,2100 [facility] Last Admin: 11/27/16 10:02 Dose: 1 applic Ferrous Sulfate (Feosol Liq) 450 mg PEG DAILY [facility] Last Admin: 11/27/16 09:51 Dose: 450 mg Fluticasone Propionate (Flonase) 2 spr JAKUB DAILY PRN PRN Reason: ALLERGY SYMPTOMS Tigecycline 50 mg/ Sodium (Chloride) 100 mls @ 100 mls/hr IVPB Q12@0400,1600 [facility] Last Admin: 11/27/16 17:13 Dose: 100 mls/hr Dexamethasone 4 mg/ Sodium (Chloride) 51 mls @ 102 mls/hr IVPB Q12 [facility] Last Admin: 11/27/16 14:58 Dose: 102 mls/hr Metoclopramide HCl (Reglan) 10 mg PEG HS [facility] Last Admin: 11/26/16 21:25 Dose: 10 mg Metoprolol Tartrate (Lopressor) 12.5 mg PEG Q12 [facility] Last Admin: 11/27/16 20:01 Dose: 12.5 mg Ondansetron HCl (Zofran Odt) 4 mg PEG Q8 [facility] Last Admin: 11/24/16 16:40 Dose: 4 mg Pantoprazole Sodium (Protonix Susp) 40 mg PEG DAILY [facility] Last Admin: 11/27/16 09:59 Dose: 40 mg Silver Sulfadiazine (Silvadene 1% 50 Gm) 1 applic TOP 0900,2100 [facility] Last Admin: 11/27/16 10:03 Dose: 1 applic Sucralfate (Carafate Oral Susp) 1 gm PEG TID [facility] Last Admin: 11/27/16 17:14 Dose: 1 gm - Labs Labs: 11/27/16 04:15 11/27/16 04:15 PT 12.7 SECONDS (9.6-11.2) H 11/24/16 06:00 INR 1.22 (0.92-1.08) H 11/24/16 06:00 APTT 33.9 SECONDS (23.3-32.5) H D 11/24/16 06:00 - Respiratory Exam Respiratory Exam: NORMAL BREATHING PATTERN - Cardiovascular Exam Cardiovascular Exam: REGULAR RHYTHM - GI/Abdominal Exam GI & Abdominal Exam: Normal Bowel Sounds Assessment and Plan - Assessment and Plan (Free Text) Assessment: Acute Respiratory Failure Asystole Intubated Ventillatory support Aspiration?? HX COPD S/P Klebsiella RLL Pneumonia? S/P L pneumothorax ABX IVF Steroids ?? Pulmonary ID Swallowing?? aspiration?? PEG Jevity and oral feedings Hx s/p + C-diff + Ag -toxin Hx Dec oral intake improved on Megace S/P Asystole 2 to Pulmonary dx (S/P V-fib/ V-tach 2 to pulmonary dx) A-fib CAD S/P CABG Amiodorone Cardiology SMITA/ CKD HX Hyperkalemia and hypokalemia etiol ?? Adrenal insufficiency?? Hx of Orthostatic Hypotension at NH ACTH Cortisol level ?? Florinef d/c Endo and Nephrology Consult Sick Euthyroid syndrome Endo Anemia etiol? Transfusion Chronic chest wall pain Pain meds
[2016-11-28] MEDS: Albuterol-Ipratrop 3 mg / 0.5 (3 ml) UD INH SCH ×4 (01:18→19:19)
[2016-11-28] MEDS ORDERED: Dexamethasone 4 MG in Sodium Chloride 0.9% 50 ML IVPB SCH (04:00)
[2016-11-28] MEDS: Acetaminophen 650mg/20.3ml solution UD PEG PRN ×2 (04:09→04:26)
[2016-11-28 05:43] LABS: ABG ALLEN TEST YES; ABG MECHANICAL RATE 14; ARTERIAL BLOOD GAS HCO3 21.8 mmol/L (21-28); ARTERIAL BLOOD GAS MODE A/C; ARTERIAL BLOOD GAS O2 CAPACITY 17.1 mL/dL (16-24); ARTERIAL BLOOD GAS PH 7.42 (7.35-7.45); ARTERIAL BLOOD GAS PO2 176 mm/Hg (80-100); ARTERIAL BLOOD HGB O2 SAT 96.3 % (95.0-98.0); ATERIAL BLOOD GAS PEEP 5; CARBOXYHEMOGLOBIN 1.4 % (0.5-1.5); HHB 0.6 % (0.0-5.0); METHEMOGLOBIN 1.7 % (0.0-3.0)
[2016-11-28 06:11] LABS: HEMATOCRIT 26.7 % (35.0-51.0); MEAN CELL VOLUME 88.1 fl (80.0-94.0); MEAN CORPUSCULAR HEMOGLOBIN 28.4 pg (27.0-31.0); MEAN CORPUSCULAR HGB CONC 32.2 g/dL (33.0-37.0); RED CELL DISTRIBUTION WIDTH 16.1 % (11.5-14.5); WHITE BLOOD COUNT 13.7 K/uL (4.8-10.8)
[2016-11-28 06:22] LABS: CALCIUM 8.8 mg/dL (8.4-10.2); POTASSIUM 5.1 MMOL/L (3.6-5.0)
[2016-11-28] MEDS: Sucralfate 1 gm/10 ml Oral Susp UD PEG SCH ×3 (08:27→16:28)
[2016-11-28] MEDS: Pantoprazole 40 mg Susp UD PEG SCH (08:29)
[2016-11-28] MEDS: Ferrous Sulfate 300 mg/5 mL Liq UD PEG SCH (08:40)
[2016-11-28] MEDS: Silver Sulfadiazine 1% CREAM (50 gm) TOP SCH ×2 (08:41→20:31)
[2016-11-28] MEDS: Proshield Plus GEL TOP SCH ×2 (08:41→20:30)
[2016-11-28] MEDS: Santyl Collagenase OINTMENT TOP SCH ×2 (08:42→20:29)
--- NOTE | 2016-11-28 09:00 | RAD ---
PROCEDURE: CHEST RADIOGRAPH, 1 VIEW portable technique 05:05. HISTORY: intubated COMPARISON: Multiple serial examinations preceding the most recent study: November 27, 2016. FINDINGS: LUNGS: Interval improvement in infiltrates particularly left lung. PLEURA: No pneumothorax or pleural fluid seen. CARDIOVASCULAR: Cardiomegaly. No evidence of acute, significant cardiovascular disease. Venous access catheter in stable, satisfactory position. OSSEOUS STRUCTURES: No significant abnormalities. VISUALIZED UPPER ABDOMEN: Normal. OTHER FINDINGS: Stable position of endotracheal tube. IMPRESSION: Interval improvement in infiltrates bilaterally.
[2016-11-28] MEDS: Acetylcysteine 10% 4 ML IH SCH ×2 (09:06→19:19)
--- NOTE | 2016-11-28 12:54 | CP.PCM.PN ---
Subjective - Date & Time of Evaluation Date of Evaluation: 11/28/16 Time of Evaluation: 12:38 - Subjective Subjective: Interim events noted. Has developed febrile pattern since yesterday. Still unresponsive to vocal or tactile stimuli. Good oxygenation on present ventilator settings. Continues to be tachypneic with RR > 25BPM. Today's CXR shows a good degree of improvement in the LLL. Leukocytosis remains the same today as yesterday. No dullness on percussion of the anterior chest wall. No subcutaneous emphysema. Breath sounds are present bilaterally w/o wheeze or bronchial breathing. Scattered rhonchi and medium rales are heard bilaterally in dependent zones. Pneumonia has improved. Could there possibly be another source of sepsis? Neuro staus is unchanged, ?ischemic encephalopathy? No vent changes contemplated for today. Objective - Vital Signs/Intake and Output Vital Signs (last 24 hours): Temp Pulse Resp BP Pulse Ox 98.1 F 108 H 30 H 156/94 H 100 11/28/16 12:15 11/28/16 12:15 11/28/16 12:15 11/28/16 08:30 11/28/16 12:15 Intake and Output: 11/28/16 11/28/16 11:59 23:59 Intake Total 1060 Output Total 761 Balance 299 - Medications Medications: Current Medications Acetaminophen (Tylenol 650mg/20.3ml Solution Ud) 650 mg PEG Q4 PRN PRN Reason: Pain, moderate (4-7) Last Admin: 11/25/16 11:50 Dose: 650 mg Acetaminophen (Tylenol 650mg/20.3ml Solution Ud) 650 mg PEG Q4 PRN PRN Reason: Fever >100.4 F Last Admin: 11/28/16 04:26 Dose: 650 mg Acetylcysteine (Mucomyst 10% 4ml) 2 ml IH RBID [facility] Last Admin: 11/28/16 09:06 Dose: 2 ml Albuterol Sulfate (Albuterol 0.083% Inhal Mary (2.5 Mg/3 Ml) Ud) 2.5 mg INH RQ4 PRN PRN Reason: Shortness of Breath Last Admin: 11/23/16 03:48 Dose: 2.5 mg Albuterol/Ipratropium (Duoneb 3 Mg/0.5 Mg (3 Ml) Ud) 3 ml INH RQ6 [facility] Last Admin: 11/28/16 09:06 Dose: 3 ml Amiodarone HCl (Cordarone) 200 mg PEG DAILY [facility] Last Admin: 11/28/16 08:27 Dose: 200 mg Aspirin (Aspirin Chewable) 81 mg PEG DAILY [facility] Last Admin: 11/28/16 08:36 Dose: 81 mg Collagenase (Santyl) 1 applic TOP 0900,2100 [facility] Last Admin: 11/28/16 08:42 Dose: 1 applic Dimethicone (Proshield Plus Skin Protectant) 1 applic TOP 0900,2100 [facility] Last Admin: 11/28/16 08:41 Dose: 1 applic Ferrous Sulfate (Feosol Liq) 450 mg PEG DAILY [facility] Last Admin: 11/28/16 08:40 Dose: 450 mg Fluticasone Propionate (Flonase) 2 spr JAKUB DAILY PRN PRN Reason: ALLERGY SYMPTOMS Tigecycline 50 mg/ Sodium (Chloride) 100 mls @ 100 mls/hr IVPB Q12@0400,1600 [facility] Last Admin: 11/28/16 03:03 Dose: 100 mls/hr Dexamethasone 4 mg/ Sodium (Chloride) 51 mls @ 102 mls/hr IVPB Q12@0400,1600 [facility] Last Admin: 11/28/16 03:40 Dose: 102 mls/hr Metoclopramide HCl (Reglan) 10 mg PEG HS [facility] Last Admin: 11/28/16 00:00 Dose: 10 mg Metoprolol Tartrate (Lopressor) 12.5 mg PEG Q12 [facility] Last Admin: 11/28/16 08:30 Dose: 12.5 mg Ondansetron HCl (Zofran Odt) 4 mg PEG Q8 [facility] Last Admin: 11/24/16 16:40 Dose: 4 mg Pantoprazole Sodium (Protonix Susp) 40 mg PEG DAILY [facility] Last Admin: 11/28/16 08:29 Dose: 40 mg Silver Sulfadiazine (Silvadene 1% 50 Gm) 1 applic TOP 0900,2100 [facility] Last Admin: 11/28/16 08:41 Dose: 1 applic Sucralfate (Carafate Oral Susp) 1 gm PEG TID [facility] Last Admin: 11/28/16 12:26 Dose: 1 gm - Labs Labs: 11/28/16 04:20 11/28/16 04:20 PT 12.7 SECONDS (9.6-11.2) H 05/08/17 06:00 INR 1.22 (0.92-1.08) H 11/24/16 06:00 APTT 33.9 SECONDS (23.3-32.5) H D 11/24/16 06:00 Assessment and Plan (1) Respiratory failure with hypercapnia Status: Acute (2) Endotracheally intubated Status: Acute (3) On mechanically assisted ventilation Status: Acute (4) Pneumonia Status: Acute (5) COPD exacerbation Status: Acute
--- NOTE | 2016-11-28 13:14 | CP.PCM.CON ---
History of Present Illness - History of Present Illness History of Present Illness: Mr. Bellamy is a 71-year-old man who was initially admitted on 11/22/2016 for COPD exacerbation and aspiration pneumonia. The morning of 11/24/2016, the patient suffered an episode of cardio-pulmonary arrest and required CPR and resuscitation. He was coded for a prolonged period of time prior to regaining his pulse. Now, the patient is intubated, off sedation, and non-responsive to commands. He has spontaneous, almost rhythmic, movements of both lower extremities, but are not purposeful. Neurology was consulted to assist with the management and care. The history was provided by nursing and a chart review. Review of Systems - Review of Systems All systems: reviewed and no additional remarkable complaints except Past Patient History - Infectious Disease Hx of Infectious Diseases: None - Tetanus Immunizations Tetanus Immunization: Unknown - Past Medical History & Family History Past Medical History?: Yes - Past Social History Smoking Status: Former Smoker - CARDIAC Hx Atrial Fibrillation: Yes Hx Cardia Arrhythmia: Yes Hx Congestive Heart Failure: Yes Hx Hypercholesterolemia: Yes Hx Hypertension: Yes Hx Peripheral Edema: Yes - PULMONARY Hx Asthma: Yes Hx Bronchitis: Yes Hx Chronic Obstructive Pulmonary Disease (COPD): Yes Hx Emphysema: Yes Hx Pneumonia: Yes - NEUROLOGICAL Hx Neurological Disorder: No - HEENT Hx Cataracts: Yes (right eye) - RENAL Hx Chronic Kidney Disease: No - ENDOCRINE/METABOLIC Hx Hypothyroidism: No - HEMATOLOGICAL/ONCOLOGICAL Hx Anemia: Yes Hx Human Immunodeficiency Virus (HIV): No - INTEGUMENTARY Hx Psoriasis: Yes - MUSCULOSKELETAL/RHEUMATOLOGICAL Hx Arthritis: Yes Hx Rheumatoid Arthritis: No - GASTROINTESTINAL Hx Diverticulitis: Yes - GENITOURINARY/GYNECOLOGICAL Hx Prostate Problems: Yes (BPH) - PSYCHIATRIC Hx Anxiety: Yes - SURGICAL HISTORY Hx Coronary Artery Bypass Graft: Yes (1994) Hx Coronary Stent: Yes (2000) - ANESTHESIA Hx Anesthesia: Yes Hx Anesthesia Reactions: No Hx Malignant Hyperthermia: No Has any member of the family had a problem w/ anesthesia?: No Meds Allergies/Adverse Reactions: Allergies Allergy/AdvReac Type Severity Reaction Status Date / Time gemfibrozil [From Lopid] Allergy RASH Verified 11/22/16 07:55 morphine Allergy SHORTNESS Verified 11/22/16 07:55 OF BREATH - Medications Medications: Current Medications Acetaminophen (Tylenol 650mg/20.3ml Solution Ud) 650 mg PEG Q4 PRN PRN Reason: Pain, moderate (4-7) Last Admin: 11/25/16 11:50 Dose: 650 mg Acetaminophen (Tylenol 650mg/20.3ml Solution Ud) 650 mg PEG Q4 PRN PRN Reason: Fever >100.4 F Last Admin: 11/28/16 04:26 Dose: 650 mg Acetylcysteine (Mucomyst 10% 4ml) 2 ml IH [facility] Last Admin: 11/28/16 09:06 Dose: 2 ml Albuterol Sulfate (Albuterol 0.083% Inhal Mary (2.5 Mg/3 Ml) Ud) 2.5 mg INH RQ4 PRN PRN Reason: Shortness of Breath Last Admin: 11/23/16 03:48 Dose: 2.5 mg Albuterol/Ipratropium (Duoneb 3 Mg/0.5 Mg (3 Ml) Ud) 3 ml INH RQ6 [facility] Last Admin: 11/28/16 09:06 Dose: 3 ml Amiodarone HCl (Cordarone) 200 mg PEG DAILY [facility] Last Admin: 11/28/16 08:27 Dose: 200 mg Aspirin (Aspirin Chewable) 81 mg PEG DAILY [facility] Last Admin: 11/28/16 08:36 Dose: 81 mg Collagenase (Santyl) 1 applic TOP 0900,2100 [facility] Last Admin: 11/28/16 08:42 Dose: 1 applic Dimethicone (Proshield Plus Skin Protectant) 1 applic TOP 0900,2100 [facility] Last Admin: 11/28/16 08:41 Dose: 1 applic Ferrous Sulfate (Feosol Liq) 450 mg PEG DAILY [facility] Last Admin: 11/28/16 08:40 Dose: 450 mg Fluticasone Propionate (Flonase) 2 spr JAKUB DAILY PRN PRN Reason: ALLERGY SYMPTOMS Tigecycline 50 mg/ Sodium (Chloride) 100 mls @ 100 mls/hr IVPB Q12@0400,1600 [facility] Last Admin: 11/28/16 03:03 Dose: 100 mls/hr Dexamethasone 4 mg/ Sodium (Chloride) 51 mls @ 102 mls/hr IVPB DAILY [facility] Metoclopramide HCl (Reglan) 10 mg PEG HS [facility] Last Admin: 11/28/16 00:00 Dose: 10 mg Metoprolol Tartrate (Lopressor) 12.5 mg PEG Q12 [facility] Last Admin: 11/28/16 08:30 Dose: 12.5 mg Ondansetron HCl (Zofran Odt) 4 mg PEG Q8 [facility] Last Admin: 11/24/16 16:40 Dose: 4 mg Pantoprazole Sodium (Protonix Susp) 40 mg PEG DAILY [facility] Last Admin: 11/28/16 08:29 Dose: 40 mg Silver Sulfadiazine (Silvadene 1% 50 Gm) 1 applic TOP 0900,2100 [facility] Last Admin: 11/28/16 08:41 Dose: 1 applic Sucralfate (Carafate Oral Susp) 1 gm PEG TID [facility] Last Admin: 11/28/16 12:26 Dose: 1 gm Physical Exam - Constitutional Appears: Chronically Ill - Head Exam Additional comments: Orotracheal intubation. - Eye Exam Additional comments: Left eye is deviated upward. Pupils are reactive to light. - Neck Exam Neck exam: Positive for: Normal Inspection - Respiratory Exam Additional comments: On vent support - Cardiovascular Exam Cardiovascular Exam: REGULAR RHYTHM, +S1, +S2 - GI/Abdominal Exam GI & Abdominal Exam: Normal Bowel Sounds, Soft. absent: Tenderness - Neurological Exam Additional comments: Not responsive to voice, withdraws to pain, does not open eyes to pain, breaths over the ventilator, has spontaneous periodic movements, bilateral upgoing plantar response, reflexes are diminished throughout. GCS= 5T Results - Vital Signs Recent Vital Signs: Last Vital Signs Temp 98.1 F 11/28/16 12:15 Pulse 108 H 11/28/16 12:15 Resp 30 H 11/28/16 12:15 BP 156/94 H 11/28/16 08:30 Pulse Ox 100 11/28/16 12:15 - Labs Result Diagrams: 11/28/16 04:20 11/28/16 04:20 Labs: Laboratory Results - last 24 hr 11/27/16 11/27/16 11/27/16 11:58 18:04 21:55 WBC RBC Hgb Hct MCV MCH MCHC RDW Plt Count pCO2 pO2 HCO3 ABG pH ABG Total CO2 ABG O2 Saturation ABG O2 Content ABG Base Excess ABG Hemoglobin ABG Carboxyhemoglobin POC ABG HHb (Measured) ABG Methemoglobin ABG O2 Capacity Emmanuel Test A-a O2 Difference Hgb O2 Saturation Vent Mode Mechanical Rate FiO2 Tidal Volume PEEP Sodium Potassium Chloride Carbon Dioxide Anion Gap BUN Creatinine Est GFR ( Amer) Est GFR (Non-Af Amer) POC Glucose (mg/dL) 111 H 108 132 H Random Glucose Calcium 11/28/16 11/28/16 11/28/16 04:10 04:20 04:20 WBC 13.7 H RBC 3.03 L Hgb 8.6 L Hct 26.7 L MCV 88.1 MCH 28.4 MCHC 32.2 L RDW 16.1 H Plt Count 195 pCO2 pO2 HCO3 ABG pH ABG Total CO2 ABG O2 Saturation ABG O2 Content ABG Base Excess ABG Hemoglobin ABG Carboxyhemoglobin POC ABG HHb (Measured) ABG Methemoglobin ABG O2 Capacity Emmanuel Test A-a O2 Difference Hgb O2 Saturation Vent Mode Mechanical Rate FiO2 Tidal Volume PEEP Sodium 143 Potassium 5.1 H Chloride 109 H Carbon Dioxide 20 L Anion Gap 19 BUN 87 H Creatinine 2.7 H Est GFR ( Amer) 28 Est GFR (Non-Af Amer) 23 POC Glucose (mg/dL) 131 H Random Glucose 113 H Calcium 8.8 11/28/16 11/28/16 05:20 11:56 WBC RBC Hgb Hct MCV MCH MCHC RDW Plt Count pCO2 30 L pO2 176 H HCO3 21.8 ABG pH 7.42 ABG Total CO2 20.4 L ABG O2 Saturation 99.4 H ABG O2 Content 17.0 ABG Base Excess -4.0 L ABG Hemoglobin 12.3 ABG Carboxyhemoglobin 1.4 POC ABG HHb (Measured) 0.6 ABG Methemoglobin 1.7 ABG O2 Capacity 17.1 Emmanuel Test Yes A-a O2 Difference 107.0 Hgb O2 Saturation 96.3 Vent Mode A/c Mechanical Rate 14 FiO2 45.0 Tidal Volume 450 PEEP 5 Sodium Potassium Chloride Carbon Dioxide Anion Gap BUN Creatinine Est GFR ( Amer) Est GFR (Non-Af Amer) POC Glucose (mg/dL) 159 H Random Glucose Calcium - Imaging and Cardiology CT scan - head Status: Report reviewed by me (System did now alow for direct imaging review; however, I reviewed the report and it did not mention any significant acute findings. ) Assessment & Plan (1) Anoxic brain injury Assessment and Plan: Will repeat CT head to evaluate for hypoxic injury pattern and continue current management to maintain cerebral perfusion and allow for possible recovery. The periodic patterns of movement could be consistent with subclinical status epilepticus. An EEG is recommended, but could be degraded by artifact from interference between ICU machinery and electrodes. However, it will be helpful if the CT head is still essentially normal. Thank you very much for this consultation. Status: Acute Priority: High
--- NOTE | 2016-11-28 13:48 | CP.PCM.PN ---
Subjective - Date & Time of Evaluation Date of Evaluation: 11/28/16 Time of Evaluation: 08:00 - Subjective Subjective: afebrile intubated non responsive Objective - Vital Signs/Intake and Output Vital Signs (last 24 hours): Temp Pulse Resp BP Pulse Ox 98.1 F 108 H 30 H 156/94 H 100 11/28/16 12:15 11/28/16 12:15 11/28/16 12:15 11/28/16 08:30 11/28/16 12:15 Intake and Output: 11/28/16 11/28/16 06:59 18:59 Intake Total 1425 20 Output Total 601 160 Balance 824 -140 - Medications Medications: Current Medications Acetaminophen (Tylenol 650mg/20.3ml Solution Ud) 650 mg PEG Q4 PRN PRN Reason: Pain, moderate (4-7) Last Admin: 11/25/16 11:50 Dose: 650 mg Acetaminophen (Tylenol 650mg/20.3ml Solution Ud) 650 mg PEG Q4 PRN PRN Reason: Fever >100.4 F Last Admin: 11/28/16 04:26 Dose: 650 mg Acetylcysteine (Mucomyst 10% 4ml) 2 ml IH RBID [facility] Last Admin: 11/28/16 09:06 Dose: 2 ml Albuterol Sulfate (Albuterol 0.083% Inhal Mary (2.5 Mg/3 Ml) Ud) 2.5 mg INH RQ4 PRN PRN Reason: Shortness of Breath Last Admin: 11/23/16 03:48 Dose: 2.5 mg Albuterol/Ipratropium (Duoneb 3 Mg/0.5 Mg (3 Ml) Ud) 3 ml INH RQ6 [facility] Last Admin: 11/28/16 09:06 Dose: 3 ml Amiodarone HCl (Cordarone) 200 mg PEG DAILY [facility] Last Admin: 11/28/16 08:27 Dose: 200 mg Aspirin (Aspirin Chewable) 81 mg PEG DAILY [facility] Last Admin: 11/28/16 08:36 Dose: 81 mg Collagenase (Santyl) 1 applic TOP 0900,2100 [facility] Last Admin: 11/28/16 08:42 Dose: 1 applic Dimethicone (Proshield Plus Skin Protectant) 1 applic TOP 0900,2100 [facility] Last Admin: 11/28/16 08:41 Dose: 1 applic Ferrous Sulfate (Feosol Liq) 450 mg PEG DAILY [facility] Last Admin: 11/28/16 08:40 Dose: 450 mg Fluticasone Propionate (Flonase) 2 spr JAKUB DAILY PRN PRN Reason: ALLERGY SYMPTOMS Tigecycline 50 mg/ Sodium (Chloride) 100 mls @ 100 mls/hr IVPB Q12@0400,1600 [facility] Last Admin: 11/28/16 03:03 Dose: 100 mls/hr Dexamethasone 4 mg/ Sodium (Chloride) 51 mls @ 102 mls/hr IVPB DAILY [facility] Metoclopramide HCl (Reglan) 10 mg PEG HS [facility] Last Admin: 11/28/16 00:00 Dose: 10 mg Metoprolol Tartrate (Lopressor) 12.5 mg PEG Q12 [facility] Last Admin: 11/28/16 08:30 Dose: 12.5 mg Ondansetron HCl (Zofran Odt) 4 mg PEG Q8 [facility] Last Admin: 11/24/16 16:40 Dose: 4 mg Pantoprazole Sodium (Protonix Susp) 40 mg PEG DAILY [facility] Last Admin: 11/28/16 08:29 Dose: 40 mg Silver Sulfadiazine (Silvadene 1% 50 Gm) 1 applic TOP 0900,2100 [facility] Last Admin: 11/28/16 08:41 Dose: 1 applic Sucralfate (Carafate Oral Susp) 1 gm PEG TID [facility] Last Admin: 11/28/16 12:26 Dose: 1 gm - Labs Labs: 11/28/16 04:20 11/28/16 04:20 PT 12.7 SECONDS (9.6-11.2) H 11/24/16 06:00 INR 1.22 (0.92-1.08) H 11/24/16 06:00 APTT 33.9 SECONDS (23.3-32.5) H D 11/24/16 06:00 - Constitutional Appears: Non-toxic, Cachectic, Chronically Ill - Head Exam Head Exam: ATRAUMATIC, NORMAL INSPECTION, NORMOCEPHALIC - Eye Exam Eye Exam: PERRL. absent: Scleral icterus - ENT Exam ENT Exam: Mucous Membranes Dry, Normal External Ear Exam - Neck Exam Neck Exam: absent: Lymphadenopathy, Thyromegaly - Respiratory Exam Respiratory Exam: Decreased Breath Sounds, Rhonchi - Cardiovascular Exam Cardiovascular Exam: REGULAR RHYTHM, +S1, +S2 - GI/Abdominal Exam GI & Abdominal Exam: Distended, Soft. absent: Tenderness - Rectal Exam Rectal Exam: Deferred - Exam Exam: NORMAL INSPECTION - Extremities Exam Extremities Exam: absent: Calf Tenderness, Pedal Edema - Back Exam Back Exam: absent: CVA tenderness (L), CVA tenderness (R), paraspinal tenderness - Neurological Exam Neurological Exam: Altered. absent: Alert, Awake, Oriented x3 Neuro motor strength exam: Left Upper Extremity: 2/1, Right Upper Extremity: 2/1 , Left Lower Extremity: 2/1, Right Lower Extremity: 2/1 - Psychiatric Exam Psychiatric exam: Depressed Assessment and Plan (1) COPD (chronic obstructive pulmonary disease) with acute bronchitis Status: Acute (2) Atrial fibrillation Status: Acute (3) CHF (congestive heart failure) Status: Acute (4) Dehydration Status: Acute (5) Moderate COPD (chronic obstructive pulmonary disease) Status: Acute (6) PAD (peripheral artery disease) Status: Acute (7) Pneumonia Status: Acute (8) COPD (chronic obstructive pulmonary disease) Status: Chronic (9) COPD exacerbation Status: Acute - Assessment and Plan (Free Text) Assessment: mdro sputum cont rx for sepsis poor prognosis
--- NOTE | 2016-11-28 13:53 | PN ---
DATE: 11/28/2016 ROOM: 423 ICU. SUBJECTIVE: This is a 71-year-old male with recurrent aspiration pneumonia with underlying acute exa cerbation of COPD and is now being followed closely for metabolic management. His glycemic levels ar e also fluctuating, but much improved at this time and have ranged from 131-159 mg/dL. His latest ch emistries include a BUN of 87, sodium 143, potassium 5.1, chloride 109, CO2 20, glucose 113, and crea tinine 2.7. So, at this time, we will continue the present medical management as noted. His potassi um level is starting to rise to the upper limit of normal and we will observe the fluctuations as not ed thereof. He was taken off Florinef medications in the previous admission because of supervening h ypokalemia as noted thereof. If hyperkalemic levels persist with this admission, then we will start him back on a very low dose of Florinef as indicated. We will obtain serial chemistries and suppleme nt accordingly as needed. We will follow. Anabella Sebastian MD cc: [id number] TT: 11/28/2016 13:53:14 Confirmation # [id number] Dictation # [id number] tn
--- NOTE | 2016-11-28 14:44 | CP.CCUPN ---
CCU Subjective - Physician Review Events Since Last Encounter (Free Text): 11/28/16 14:47 The Patient was seen and examined at the bedside, Medical records reviewed, all clinical/lab/hemodynamic/radiographic data were reviewed and management issues were discussed and formulated, Events reviewed He was transferred to the ICU following cardiac arrest 11/24, now orally intubated, unresponsive to verbal stimuli. Family at the bedside updated on the patient current condition. Afebrile, no neurological improvements. Last 24H I&O 2475/1400 Vent sitting PRVC 450/14/45% Saturating 95s% Seen by neurology, scheduled for EEG and repeat Head non-contrast CT scan CCU Objective - Vital Signs / Intake & Output Vital Signs (Last 4 hours): Vital Signs Temp Pulse Resp Pulse Ox 11/28/16 12:15 98.1 F 108 H 30 H 100 Intake and Output (Last 8hrs): Intake & Output 11/27/16 11/28/16 11/28/16 22:59 06:59 14:59 Intake Total 825 1040 20 Output Total 150 601 160 Balance 675 439 -140 Weight 130 lb 11.2 oz Intake: IV 0 20 Intake, Piggyback 100 300 Oral 120 240 Tube Feeding 305 400 Free Water Flush 300 100 Output: Gastric Amount 0 Stomach 0 Urine 150 600 160 Condom 50 Urethral ([place]) 600 160 Urine, Voided 100 Stool 1 Other: # Bowel Movements 1 - Physical Exam Head: Positive for: Atraumatic, Normocephalic Pupils: Positive for: PERRL Extroacular Muscles: Positive for: EOMI Conjunctiva: Positive for: Normal Mouth: Positive for: Moist Mucous Membranes Pharnyx: Positive for: Normal, Other (ET tube in place) Nose (External): Positive for: Atraumatic Neck: Positive for: Normal Range of Motion Respiratory/Chest: Positive for: Good Air Exchange, Wheezes, Decreased Breath Sounds, Rhonchi. Negative for: Clear to Auscultation, Respiratory Distress, Accessory Muscle Use Cardiovascular: Positive for: Irregular Rhythm, Peripheal Pulses Present. Negative for: Murmurs, Tachycardic, Bradycardic Abdomen: Positive for: Distention, Normal Bowel Sounds. Negative for: Tenderness Upper Extremity: Positive for: Normal Inspection Lower Extremity: Positive for: Normal Inspection, Edema Skin: Positive for: Warm, Dry, Rashes, Normal Color - Medications Active Medications: Active Medications Generic Name Dose Route Start Last Admin Trade Name Freq PRN Reason Stop Dose Admin Acetaminophen 650 mg 11/22/16 16:39 11/25/16 11:50 Tylenol 650mg/20.3ml Solution Ud PEG 650 mg Q4 PRN Administration Pain, moderate (4-7) Acetaminophen 650 mg 11/22/16 16:45 11/28/16 04:26 Tylenol 650mg/20.3ml Solution Ud PEG 650 mg Q4 PRN Administration Fever >100.4 F Acetylcysteine 2 ml 11/22/16 20:00 11/28/16 09:06 Mucomyst 10% 4ml IH 2 ml RBID [facility] Administration Albuterol Sulfate 2.5 mg 11/22/16 14:14 11/23/16 03:48 Albuterol 0.083% Inhal Mary (2.5 Mg/3 Ml) Ud INH 2.5 mg RQ4 PRN Administration Shortness of Breath Albuterol/Ipratropium 3 ml 11/24/16 14:00 11/28/16 14:21 Duoneb 3 Mg/0.5 Mg (3 Ml) Ud INH 3 ml RQ6 [facility] Administration Amiodarone HCl 200 mg 11/23/16 09:00 11/28/16 08:27 Cordarone PEG 200 mg DAILY [facility] Administration Aspirin 81 mg 11/22/16 13:15 11/28/16 08:36 Aspirin Chewable PEG 81 mg DAILY [facility] Administration Collagenase 1 applic 11/23/16 21:00 11/28/16 08:42 Santyl TOP 1 applic 0900,2100 [facility] Administration Dimethicone 1 applic 11/23/16 21:00 11/28/16 08:41 Proshield Plus Skin Protectant TOP 1 applic 0900,2100 [facility] Administration Ferrous Sulfate 450 mg 11/22/16 13:15 11/28/16 08:40 Feosol Liq PEG 450 mg DAILY [facility] Administration Fluticasone Propionate 2 spr 11/22/16 13:06 Flonase JAKUB DAILY PRN ALLERGY SYMPTOMS Tigecycline 50 mg/ Sodium 100 mls @ 100 mls/hr 11/27/16 04:00 11/28/16 03:03 Chloride IVPB 100 mls/hr Q12@0400,1600 [facility] Administration Dexamethasone 4 mg/ Sodium 51 mls @ 102 mls/hr 11/29/16 09:00 Chloride IVPB DAILY [facility] Metoclopramide HCl 10 mg 11/22/16 22:00 11/28/16 00:00 Reglan PEG 10 mg HS [facility] Administration Metoprolol Tartrate 12.5 mg 11/22/16 21:00 11/28/16 08:30 Lopressor PEG 12.5 mg Q12 [facility] Administration Ondansetron HCl 4 mg 11/22/16 17:00 11/24/16 16:40 Zofran Odt PEG 4 mg Q8 [facility] Administration Pantoprazole Sodium 40 mg 11/22/16 13:15 11/28/16 08:29 Protonix Susp PEG 40 mg DAILY [facility] Administration Silver Sulfadiazine 1 applic 11/23/16 21:00 11/28/16 08:41 Silvadene 1% 50 Gm TOP 1 applic 0900,2100 [facility] Administration Sucralfate 1 gm 11/22/16 17:00 11/28/16 12:26 Carafate Oral Susp PEG 1 gm TID [facility] Administration - Patient Studies Lab Studies: Lab Studies 11/28/16 11/28/16 11/28/16 Range/Units 11:56 05:20 04:20 WBC 13.7 H (4.8-10.8) K/uL RBC 3.03 L (4.40-5.90) Mil/uL Hgb 8.6 L (12.0-18.0) g/dL Hct 26.7 L (35.0-51.0) % MCV 88.1 (80.0-94.0) fl MCH 28.4 (27.0-31.0) pg MCHC 32.2 L (33.0-37.0) g/dL RDW 16.1 H (11.5-14.5) % Plt Count 195 (130-400) K/uL pCO2 30 L (35-45) mm/Hg pO2 176 H (80-100) mm/Hg HCO3 21.8 (21-28) mmol/L ABG pH 7.42 (7.35-7.45) ABG Total CO2 20.4 L (22-28) mmol/L ABG O2 Saturation 99.4 H (95-98) % ABG O2 Content 17.0 (15-23) ML/dL ABG Base Excess -4.0 L (-2.0-3.0) mmol/L ABG Hemoglobin 12.3 (11.7-17.4) g/dL ABG Carboxyhemoglobin 1.4 (0.5-1.5) % POC ABG HHb (Measured) 0.6 (0.0-5.0) % ABG Methemoglobin 1.7 (0.0-3.0) % ABG O2 Capacity 17.1 (16-24) mL/dL Emmanuel Test Yes A-a O2 Difference 107.0 mm/Hg Hgb O2 Saturation 96.3 (95.0-98.0) % Vent Mode A/c Mechanical Rate 14 FiO2 45.0 % Tidal Volume 450 PEEP 5 Sodium (132-148) mmol/l Potassium (3.6-5.0) MMOL/L Chloride (98-107) mmol/L Carbon Dioxide (22-30) mmol/L Anion Gap (10-20) BUN (9-20) mg/dl Creatinine (0.8-1.5) mg/dL Est GFR ( Amer) Est GFR (Non-Af Amer) POC Glucose (mg/dL) 159 H (65-110) mg/dL Random Glucose (75-110) mg/dL Calcium (8.4-10.2) mg/dL 11/28/16 11/28/16 11/27/16 Range/Units 04:20 04:10 21:55 WBC (4.8-10.8) K/uL RBC (4.40-5.90) Mil/uL Hgb (12.0-18.0) g/dL Hct (35.0-51.0) % MCV (80.0-94.0) fl MCH (27.0-31.0) pg MCHC (33.0-37.0) g/dL RDW (11.5-14.5) % Plt Count (130-400) K/uL pCO2 (35-45) mm/Hg pO2 (80-100) mm/Hg HCO3 (21-28) mmol/L ABG pH (7.35-7.45) ABG Total CO2 (22-28) mmol/L ABG O2 Saturation (95-98) % ABG O2 Content (15-23) ML/dL ABG Base Excess (-2.0-3.0) mmol/L ABG Hemoglobin (11.7-17.4) g/dL ABG Carboxyhemoglobin (0.5-1.5) % POC ABG HHb (Measured) (0.0-5.0) % ABG Methemoglobin (0.0-3.0) % ABG O2 Capacity (16-24) mL/dL Emmanuel Test A-a O2 Difference mm/Hg Hgb O2 Saturation (95.0-98.0) % Vent Mode Mechanical Rate FiO2 % Tidal Volume PEEP Sodium 143 (132-148) mmol/l Potassium 5.1 H (3.6-5.0) MMOL/L Chloride 109 H (98-107) mmol/L Carbon Dioxide 20 L (22-30) mmol/L Anion Gap 19 (10-20) BUN 87 H (9-20) mg/dl Creatinine 2.7 H (0.8-1.5) mg/dL Est GFR ( Amer) 28 Est GFR (Non-Af Amer) 23 POC Glucose (mg/dL) 131 H 132 H (65-110) mg/dL Random Glucose 113 H (75-110) mg/dL Calcium 8.8 (8.4-10.2) mg/dL 11/27/16 11/27/16 Range/Units 18:04 11:58 WBC (4.8-10.8) K/uL RBC (4.40-5.90) Mil/uL Hgb (12.0-18.0) g/dL Hct (35.0-51.0) % MCV (80.0-94.0) fl MCH (27.0-31.0) pg MCHC (33.0-37.0) g/dL RDW (11.5-14.5) % Plt Count (130-400) K/uL pCO2 (35-45) mm/Hg pO2 (80-100) mm/Hg HCO3 (21-28) mmol/L ABG pH (7.35-7.45) ABG Total CO2 (22-28) mmol/L ABG O2 Saturation (95-98) % ABG O2 Content (15-23) ML/dL ABG Base Excess (-2.0-3.0) mmol/L ABG Hemoglobin (11.7-17.4) g/dL ABG Carboxyhemoglobin (0.5-1.5) % POC ABG HHb (Measured) (0.0-5.0) % ABG Methemoglobin (0.0-3.0) % ABG O2 Capacity (16-24) mL/dL Emmanuel Test A-a O2 Difference mm/Hg Hgb O2 Saturation (95.0-98.0) % Vent Mode Mechanical Rate FiO2 % Tidal Volume PEEP Sodium (132-148) mmol/l Potassium (3.6-5.0) MMOL/L Chloride (98-107) mmol/L Carbon Dioxide (22-30) mmol/L Anion Gap (10-20) BUN (9-20) mg/dl Creatinine (0.8-1.5) mg/dL Est GFR ( Amer) Est GFR (Non-Af Amer) POC Glucose (mg/dL) 108 111 H (65-110) mg/dL Random Glucose (75-110) mg/dL Calcium (8.4-10.2) mg/dL Laboratory Results - last 24 hr 11/27/16 11/27/16 11/27/16 11:58 18:04 21:55 WBC RBC Hgb Hct MCV MCH MCHC RDW Plt Count pCO2 pO2 HCO3 ABG pH ABG Total CO2 ABG O2 Saturation ABG O2 Content ABG Base Excess ABG Hemoglobin ABG Carboxyhemoglobin POC ABG HHb (Measured) ABG Methemoglobin ABG O2 Capacity Emmanuel Test A-a O2 Difference Hgb O2 Saturation Vent Mode Mechanical Rate FiO2 Tidal Volume PEEP Sodium Potassium Chloride Carbon Dioxide Anion Gap BUN Creatinine Est GFR ( Amer) Est GFR (Non-Af Amer) POC Glucose (mg/dL) 111 H 108 132 H Random Glucose Calcium 11/28/16 11/28/16 11/28/16 04:10 04:20 04:20 WBC 13.7 H RBC 3.03 L Hgb 8.6 L Hct 26.7 L MCV 88.1 MCH 28.4 MCHC 32.2 L RDW 16.1 H Plt Count 195 pCO2 pO2 HCO3 ABG pH ABG Total CO2 ABG O2 Saturation ABG O2 Content ABG Base Excess ABG Hemoglobin ABG Carboxyhemoglobin POC ABG HHb (Measured) ABG Methemoglobin ABG O2 Capacity Emmanuel Test A-a O2 Difference Hgb O2 Saturation Vent Mode Mechanical Rate FiO2 Tidal Volume PEEP Sodium 143 Potassium 5.1 H Chloride 109 H Carbon Dioxide 20 L Anion Gap 19 BUN 87 H Creatinine 2.7 H Est GFR ( Amer) 28 Est GFR (Non-Af Amer) 23 POC Glucose (mg/dL) 131 H Random Glucose 113 H Calcium 8.8 11/28/16 11/28/16 05:20 11:56 WBC RBC Hgb Hct MCV MCH MCHC RDW Plt Count pCO2 30 L pO2 176 H HCO3 21.8 ABG pH 7.42 ABG Total CO2 20.4 L ABG O2 Saturation 99.4 H ABG O2 Content 17.0 ABG Base Excess -4.0 L ABG Hemoglobin 12.3 ABG Carboxyhemoglobin 1.4 POC ABG HHb (Measured) 0.6 ABG Methemoglobin 1.7 ABG O2 Capacity 17.1 Emmanuel Test Yes A-a O2 Difference 107.0 Hgb O2 Saturation 96.3 Vent Mode A/c Mechanical Rate 14 FiO2 45.0 Tidal Volume 450 PEEP 5 Sodium Potassium Chloride Carbon Dioxide Anion Gap BUN Creatinine Est GFR ( Amer) Est GFR (Non-Af Amer) POC Glucose (mg/dL) 159 H Random Glucose Calcium Fingerstick Blood Sugar Results: 131 Review of Systems - Review of Systems Systems not reviewed;Unavailable: Intubated Critical Care Progress Note - Ventilator Checklist Head of Bed 30 Degrees: Yes Daily Sedation Vacation: Yes Daily Assessment of Readiness to Wean: Yes Daily Spontaneous Breathing Trial: Yes PUD Prophalyxis: Yes DVT Prophylaxis: Yes Oral Care with Chlorhexidine Gluconate {CHG}: Yes - Extremities/Vascular Does the Patient have a Central Venous Catheter?: Yes Does the Patient need a Central Venous Catheter?: Yes Assessment/Plan (1) Cardiac arrest Current Visit: Yes Status: Acute (2) Anoxic brain injury Current Visit: Yes Status: Acute Priority: High (3) COPD (chronic obstructive pulmonary disease) with acute bronchitis Current Visit: Yes Status: Acute Priority: High (4) Endotracheally intubated Current Visit: Yes Status: Acute Priority: High (5) On mechanically assisted ventilation Current Visit: Yes Status: Acute Priority: High (6) Respiratory failure with hypercapnia Current Visit: Yes Status: Acute Priority: High (7) Atrial fibrillation with RVR Current Visit: No Status: Acute - Assessment and Plan (Free Text) Assessment: Continue meds, reviewed Continue Full vent support, not candidate for vent weaning Daily Vent weaning as tolerate when improved mental status Continue Antibiotic with IV Tigecycline for Kleb coverage follow up cultures A-Fib, HR controlled on Amiodarone 200 mg PEG daily Maintain MAP 65-75 Frequent Neuro check PRN Tylenol for fever G Tube feeding Monitor renal function Bronchodilator Nebs Aggressive Pulmonary toilets Poor prognosis Pall Care consult Pain issues, skin care, head of the bed elevation, GI/DVT prophylaxis, glycemic control were addressed.
--- NOTE | 2016-11-28 15:35 | CT ---
PROCEDURE: CT scan brain dated 11/26/2016 HISTORY: Not responding COMPARISON: Comparison made with prior CT scan brain 11/26/2016 the the TECHNIQUE: Axial computed tomography images were obtained through the head/brain without intravenous contrast. Radiation dose: Total exam DLP = 1297.40 mGy-cm. This CT exam was performed using one or more of the following dose reduction techniques: Automated exposure control, adjustment of the mA and/or kV according to patient size, and/or use of iterative reconstruction technique. FINDINGS: HEMORRHAGE: No acute parenchymal, subarachnoid or extra-axial hemorrhage. BRAIN: . Mild chronic periventricular white matter ischemic changes seen extending peripherally into the deep and to a lesser degree subcortical white matter both cerebral hemispheres again seen. There appears to be some extension of these changes into the white matter tracts of both basal nuclei. . Few scattered more discrete chronic bilateral basal nuclei lacunar type infarcts also noted. Minor vascular calcifications both carotid siphons. VENTRICLES: Moderate generalized volume loss. CALVARIUM: No acute calvarial fractures. . PARANASAL SINUSES: Mild mucosal thickening noted within both maxillary antra right greater than left as well as in the ethmoid air complex. There is also mild mucosal thickening within the sphenoid sinus. Note again made of unerupted left posterior maxillary molar tooth MASTOID AIR CELLS: Mastoid air complexes well-developed and currently well-aerated. OTHER FINDINGS: Note made of in situ O GT and/or NGT IMPRESSION: No acute intracranial hemorrhage. Mild chronic white matter and basal nuclei ischemic changes. Moderate generalized volume loss
--- NOTE | 2016-11-28 18:21 | CP.PCM.PN ---
Subjective - Date & Time of Evaluation Date of Evaluation: 11/28/16 Time of Evaluation: 08:15 - Subjective Subjective: ON MV AND UNRESPONSIVE Objective - Vital Signs/Intake and Output Vital Signs (last 24 hours): Temp Pulse Resp BP Pulse Ox 98.4 F 111 H 27 H 146/87 100 11/28/16 16:00 11/28/16 16:00 11/28/16 16:00 11/28/16 16:00 11/28/16 16:00 Intake and Output: 11/28/16 11/28/16 06:59 18:59 Intake Total 1425 20 Output Total 601 160 Balance 824 -140 - Medications Medications: Current Medications Acetaminophen (Tylenol 650mg/20.3ml Solution Ud) 650 mg PEG Q4 PRN PRN Reason: Pain, moderate (4-7) Last Admin: 11/25/16 11:50 Dose: 650 mg Acetaminophen (Tylenol 650mg/20.3ml Solution Ud) 650 mg PEG Q4 PRN PRN Reason: Fever >100.4 F Last Admin: 11/28/16 04:26 Dose: 650 mg Acetylcysteine (Mucomyst 10% 4ml) 2 ml IH RBID [facility] Last Admin: 11/28/16 09:06 Dose: 2 ml Albuterol Sulfate (Albuterol 0.083% Inhal Mary (2.5 Mg/3 Ml) Ud) 2.5 mg INH RQ4 PRN PRN Reason: Shortness of Breath Last Admin: 11/23/16 03:48 Dose: 2.5 mg Albuterol/Ipratropium (Duoneb 3 Mg/0.5 Mg (3 Ml) Ud) 3 ml INH RQ6 [facility] Last Admin: 11/28/16 14:21 Dose: 3 ml Amiodarone HCl (Cordarone) 200 mg PEG DAILY [facility] Last Admin: 11/28/16 08:27 Dose: 200 mg Aspirin (Aspirin Chewable) 81 mg PEG DAILY [facility] Last Admin: 11/28/16 08:36 Dose: 81 mg Collagenase (Santyl) 1 applic TOP 0900,2100 [facility] Last Admin: 11/28/16 08:42 Dose: 1 applic Dimethicone (Proshield Plus Skin Protectant) 1 applic TOP 0900,2100 [facility] Last Admin: 11/28/16 08:41 Dose: 1 applic Ferrous Sulfate (Feosol Liq) 450 mg PEG DAILY [facility] Last Admin: 11/28/16 08:40 Dose: 450 mg Fluticasone Propionate (Flonase) 2 spr JAKUB DAILY PRN PRN Reason: ALLERGY SYMPTOMS Tigecycline 50 mg/ Sodium (Chloride) 100 mls @ 100 mls/hr IVPB Q12@0400,1600 [facility] Last Admin: 11/28/16 16:28 Dose: 100 mls/hr Dexamethasone 4 mg/ Sodium (Chloride) 51 mls @ 102 mls/hr IVPB DAILY [facility] Metoclopramide HCl (Reglan) 10 mg PEG HS [facility] Last Admin: 11/28/16 00:00 Dose: 10 mg Metoprolol Tartrate (Lopressor) 12.5 mg PEG Q12 [facility] Last Admin: 11/28/16 08:30 Dose: 12.5 mg Ondansetron HCl (Zofran Odt) 4 mg PEG Q8 [facility] Last Admin: 11/24/16 16:40 Dose: 4 mg Pantoprazole Sodium (Protonix Susp) 40 mg PEG DAILY [facility] Last Admin: 11/28/16 08:29 Dose: 40 mg Silver Sulfadiazine (Silvadene 1% 50 Gm) 1 applic TOP 0900,2100 [facility] Last Admin: 11/28/16 08:41 Dose: 1 applic Sucralfate (Carafate Oral Susp) 1 gm PEG TID [facility] Last Admin: 11/28/16 16:28 Dose: 1 gm - Labs Labs: 11/28/16 04:20 11/28/16 04:20 PT 12.7 SECONDS (9.6-11.2) H 11/24/16 06:00 INR 1.22 (0.92-1.08) H 11/24/16 06:00 APTT 33.9 SECONDS (23.3-32.5) H D 11/24/16 06:00 - Respiratory Exam Respiratory Exam: Rales, Rhonchi - Cardiovascular Exam Cardiovascular Exam: Tachycardia, Irregular Rhythm, +S1, +S2 - Extremities Exam Additional comments: NO SIGNIFICANT EDEMA - Additional Findings Additional findings: [employer] ATRIAL FIBRILLATION WBC 13.7 K+ 5.1 Assessment and Plan - Assessment and Plan (Free Text) Assessment: PNEUMONIA COPD WITH RESPIRATORY FAILURE CAD ATRIAL FIBRILLATION VERY GUARDED PROGNOSIS Plan: CONTINUE MV, ANTIBIOTICS, AMIODARONE, ASPIRIN, METOPROLOL WILL INCREASE METOPROLOL TO 25 MGS Q 12 HOURS TO TRY TO DECREASE HEART RATE HIS BLOOD PRESSURE IS GOOD
--- NOTE | 2016-11-28 19:12 | CP.PCM.PN ---
Subjective - Date & Time of Evaluation Date of Evaluation: 11/28/16 Time of Evaluation: 22:22 - Subjective Subjective: Above notes reviewed Objective - Vital Signs/Intake and Output Vital Signs (last 24 hours): Temp Pulse Resp BP Pulse Ox 98.4 F 111 H 27 H 146/87 100 11/28/16 16:00 11/28/16 16:00 11/28/16 16:00 11/28/16 16:00 11/28/16 16:00 Intake and Output: 11/28/16 11/29/16 18:59 06:59 Intake Total 20 Output Total 160 Balance -140 - Medications Medications: Current Medications Acetaminophen (Tylenol 650mg/20.3ml Solution Ud) 650 mg PEG Q4 PRN PRN Reason: Pain, moderate (4-7) Last Admin: 11/25/16 11:50 Dose: 650 mg Acetaminophen (Tylenol 650mg/20.3ml Solution Ud) 650 mg PEG Q4 PRN PRN Reason: Fever >100.4 F Last Admin: 11/28/16 04:26 Dose: 650 mg Acetylcysteine (Mucomyst 10% 4ml) 2 ml IH RBID [facility] Last Admin: 11/28/16 09:06 Dose: 2 ml Albuterol Sulfate (Albuterol 0.083% Inhal Mary (2.5 Mg/3 Ml) Ud) 2.5 mg INH RQ4 PRN PRN Reason: Shortness of Breath Last Admin: 11/23/16 03:48 Dose: 2.5 mg Albuterol/Ipratropium (Duoneb 3 Mg/0.5 Mg (3 Ml) Ud) 3 ml INH RQ6 [facility] Last Admin: 11/28/16 14:21 Dose: 3 ml Amiodarone HCl (Cordarone) 200 mg PEG DAILY [facility] Last Admin: 11/28/16 08:27 Dose: 200 mg Aspirin (Aspirin Chewable) 81 mg PEG DAILY [facility] Last Admin: 11/28/16 08:36 Dose: 81 mg Collagenase (Santyl) 1 applic TOP 0900,2100 [facility] Last Admin: 11/28/16 08:42 Dose: 1 applic Dimethicone (Proshield Plus Skin Protectant) 1 applic TOP 0900,2100 [facility] Last Admin: 11/28/16 08:41 Dose: 1 applic Ferrous Sulfate (Feosol Liq) 450 mg PEG DAILY [facility] Last Admin: 11/28/16 08:40 Dose: 450 mg Fluticasone Propionate (Flonase) 2 spr JAKUB DAILY PRN PRN Reason: ALLERGY SYMPTOMS Tigecycline 50 mg/ Sodium (Chloride) 100 mls @ 100 mls/hr IVPB Q12@0400,1600 [facility] Last Admin: 11/28/16 16:28 Dose: 100 mls/hr Dexamethasone 4 mg/ Sodium (Chloride) 51 mls @ 102 mls/hr IVPB DAILY [facility] Metoclopramide HCl (Reglan) 10 mg PEG HS [facility] Last Admin: 11/28/16 00:00 Dose: 10 mg Metoprolol Tartrate (Lopressor) 25 mg PO Q12 [facility] Ondansetron HCl (Zofran Odt) 4 mg PEG Q8 [facility] Last Admin: 11/24/16 16:40 Dose: 4 mg Pantoprazole Sodium (Protonix Susp) 40 mg PEG DAILY [facility] Last Admin: 11/28/16 08:29 Dose: 40 mg Silver Sulfadiazine (Silvadene 1% 50 Gm) 1 applic TOP 0900,2100 [facility] Last Admin: 11/28/16 08:41 Dose: 1 applic Sucralfate (Carafate Oral Susp) 1 gm PEG TID [facility] Last Admin: 11/28/16 16:28 Dose: 1 gm - Labs Labs: 11/28/16 04:20 11/28/16 04:20 PT 12.7 SECONDS (9.6-11.2) H 11/24/16 06:00 INR 1.22 (0.92-1.08) H 11/24/16 06:00 APTT 33.9 SECONDS (23.3-32.5) H D 11/24/16 06:00 - Respiratory Exam Respiratory Exam: NORMAL BREATHING PATTERN - Cardiovascular Exam Cardiovascular Exam: REGULAR RHYTHM - GI/Abdominal Exam GI & Abdominal Exam: Normal Bowel Sounds Assessment and Plan - Assessment and Plan (Free Text) Assessment: Acute Respiratory Failure Asystole Intubated Ventillatory support Aspiration?? HX COPD Klebsiella Pneumonia ABX IVF Steroids Pulmonary ID S/P Asystole 2 to Pulmonary dx (S/P V-fib/ V-tach 2 to pulmonary dx) A-fib CAD S/P CABG Amiodorone Cardiology Swallowing?? aspiration?? PEG Jevity and oral feedings Hx s/p + C-diff + Ag -toxin Hx Dec oral intake improved on Megace SMITA/ CKD HX Hyperkalemia and hypokalemia etiol ?? Adrenal insufficiency?? Hx of Orthostatic Hypotension at [place] ACTH Cortisol level ?? Eamon d/c Endo and Nephrology Consult Sick Euthyroid syndrome Endo Anemia etiol? Transfusion Chronic chest wall pain Pain meds
[2016-11-29] MEDS: Acetaminophen 650mg/20.3ml solution UD PEG PRN (00:04)
[2016-11-29] MEDS: Albuterol-Ipratrop 3 mg / 0.5 (3 ml) UD INH SCH ×4 (01:03→19:03)
[2016-11-29 04:49] LABS: ABG ALLEN TEST YES; ABG MECHANICAL RATE 14; ARTERIAL BLOOD GAS MODE A/C; ARTERIAL BLOOD GAS O2 CAPACITY 13.1 mL/dL (16-24); ARTERIAL BLOOD GAS O2 CONTENT 13.2 ML/dL (15-23); ARTERIAL BLOOD GAS PH 7.47 (7.35-7.45); ARTERIAL BLOOD GAS PO2 193 mm/Hg (80-100); ARTERIAL BLOOD HGB O2 SAT 97.5 % (95.0-98.0); ATERIAL BLOOD GAS PEEP 5; CARBOXYHEMOGLOBIN 1.4 % (0.5-1.5); HHB -0.4 % (0.0-5.0); METHEMOGLOBIN 1.5 % (0.0-3.0)
[2016-11-29 06:46] LABS: MEAN CELL VOLUME 88.7 fl (80.0-94.0); MEAN CORPUSCULAR HEMOGLOBIN 28.3 pg (27.0-31.0); RED CELL DISTRIBUTION WIDTH 16.5 % (11.5-14.5); WHITE BLOOD COUNT 16.4 K/uL (4.8-10.8)
[2016-11-29 06:54] LABS: CALCIUM 8.7 mg/dL (8.4-10.2)
[2016-11-29 07:01] LABS: POTASSIUM 5.4 MMOL/L (3.6-5.0)
[2016-11-29] MEDS: Dexamethasone 4 MG in Sodium Chloride 0.9% 50 ML IVPB SCH (08:45)
[2016-11-29] MEDS: Sucralfate 1 gm/10 ml Oral Susp UD PEG SCH ×3 (08:47→16:37)
[2016-11-29] MEDS: Pantoprazole 40 mg Susp UD PEG SCH (08:47)
[2016-11-29] MEDS: Ferrous Sulfate 300 mg/5 mL Liq UD PEG SCH (08:49)
[2016-11-29] MEDS: Santyl Collagenase OINTMENT TOP SCH ×2 (08:49→20:44)
[2016-11-29] MEDS: Proshield Plus GEL TOP SCH ×2 (08:50→20:45)
[2016-11-29] MEDS: Silver Sulfadiazine 1% CREAM (50 gm) TOP SCH ×2 (08:50→20:44)
[2016-11-29] MEDS: Acetylcysteine 10% 4 ML IH SCH ×2 (09:00→19:03)
--- NOTE | 2016-11-29 11:02 | RAD ---
HISTORY: intubated COMPARISON: 11/28/2016 FINDINGS: LUNGS: Bilateral interstitial infiltrates. PLEURA: No significant pleural effusion identified, no pneumothorax apparent. CARDIOVASCULAR: Normal. OSSEOUS STRUCTURES: No significant abnormalities. VISUALIZED UPPER ABDOMEN: Normal. OTHER FINDINGS: Right Port-A-Cath in place. ETT above the jung. IMPRESSION: Re-demonstration of bilateral interstitial infiltrates.
--- NOTE | 2016-11-29 13:10 | CP.CCUPN ---
CCU Subjective - Physician Review Events Since Last Encounter (Free Text): 11/29/16 13:04 Unresponsive Still on vent CCU Objective - Vital Signs / Intake & Output Vital Signs (Last 4 hours): Vital Signs Temp Pulse Resp BP Pulse Ox 11/29/16 12:00 98 F 101 H 34 H 137/95 H 100 11/29/16 10:00 104 H 32 H 136/96 H 100 Intake and Output (Last 8hrs): Intake & Output 11/28/16 11/29/16 11/29/16 22:59 06:59 14:59 Intake Total 235 705 Output Total 810 Balance 235 -105 Weight 128 lb Intake: Intake, Piggyback 100 Oral 90 Tube Feeding 135 315 Free Water Flush 100 200 Output: Gastric Amount 10 Stomach 10 Urine 800 Urethral ([place]) 800 Other: # Bowel Movements 1 - Physical Exam Narrative Physical Exam (Free Text): 11/29/16 13:05 P/E Neck: No JVD Lungs: scattered crackles and ronchi Abdomen: soft, Ext: +1 edema Heart: no gallop Head: Positive for: Atraumatic, Normocephalic Pupils: Positive for: PERRL Extroacular Muscles: Positive for: EOMI Conjunctiva: Positive for: Normal Mouth: Positive for: Moist Mucous Membranes Pharnyx: Positive for: Normal, Other (ET tube in place) Nose (External): Positive for: Atraumatic Neck: Positive for: Normal Range of Motion Respiratory/Chest: Positive for: Good Air Exchange, Wheezes, Decreased Breath Sounds, Rhonchi. Negative for: Clear to Auscultation, Respiratory Distress, Accessory Muscle Use Cardiovascular: Positive for: Irregular Rhythm, Peripheal Pulses Present. Negative for: Murmurs, Tachycardic, Bradycardic Abdomen: Positive for: Distention, Normal Bowel Sounds. Negative for: Tenderness Upper Extremity: Positive for: Normal Inspection Lower Extremity: Positive for: Normal Inspection, Edema Neurological: Positive for: GCS=15, CN II-XII Intact, Speech Normal Skin: Positive for: Warm, Dry, Rashes, Normal Color Psychiatric: Positive for: Alert, Oriented x 3, Normal Insight, Normal Concentration - Medications Active Medications: Active Medications Generic Name Dose Route Start Last Admin Trade Name Freq PRN Reason Stop Dose Admin Acetaminophen 650 mg 11/22/16 16:39 11/25/16 11:50 Tylenol 650mg/20.3ml Solution Ud PEG 650 mg Q4 PRN Administration Pain, moderate (4-7) Acetaminophen 650 mg 11/22/16 16:45 11/29/16 00:04 Tylenol 650mg/20.3ml Solution Ud PEG 650 mg Q4 PRN Administration Fever >100.4 F Acetylcysteine 2 ml 11/22/16 20:00 11/29/16 09:00 Mucomyst 10% 4ml IH 2 ml RBID OTTONIEL Administration Albuterol Sulfate 2.5 mg 11/22/16 14:14 11/23/16 03:48 Albuterol 0.083% Inhal Mary (2.5 Mg/3 Ml) Ud INH 2.5 mg RQ4 PRN Administration Shortness of Breath Albuterol/Ipratropium 3 ml 11/24/16 14:00 11/29/16 08:59 Duoneb 3 Mg/0.5 Mg (3 Ml) Ud INH 3 ml RQ6 OTTONIEL Administration Amiodarone HCl 200 mg 11/23/16 09:00 11/29/16 08:48 Cordarone PEG 200 mg DAILY OTTONIEL Administration Aspirin 81 mg 11/22/16 13:15 11/29/16 08:51 Aspirin Chewable PEG 81 mg DAILY OTTONIEL Administration Collagenase 1 applic 11/23/16 21:00 11/29/16 08:49 Santyl TOP 1 applic 0900,2100 OTTONIEL Administration Dimethicone 1 applic 11/23/16 21:00 11/29/16 08:50 Proshield Plus Skin Protectant TOP 1 applic 0900,2100 OTTONIEL Administration Ferrous Sulfate 450 mg 11/22/16 13:15 11/29/16 08:49 Feosol Liq PEG 450 mg DAILY OTTONIEL Administration Fluticasone Propionate 2 spr 11/22/16 13:06 Flonase JAKUB DAILY PRN ALLERGY SYMPTOMS Tigecycline 50 mg/ Sodium 100 mls @ 100 mls/hr 11/27/16 04:00 11/29/16 03:01 Chloride IVPB 100 mls/hr Q12@0400,1600 OTTONIEL Administration Dexamethasone 4 mg/ Sodium 51 mls @ 102 mls/hr 11/29/16 09:00 11/29/16 08:45 Chloride IVPB 102 mls/hr DAILY OTTONIEL Administration Metoclopramide HCl 10 mg 11/22/16 22:00 11/28/16 21:51 Reglan PEG 10 mg HS OTTONIEL Administration Metoprolol Tartrate 25 mg 11/28/16 21:00 11/29/16 08:47 Lopressor PO 25 mg Q12 OTTONIEL Administration Ondansetron HCl 4 mg 11/22/16 17:00 11/24/16 16:40 Zofran Odt PEG 4 mg Q8 OTTONIEL Administration Pantoprazole Sodium 40 mg 11/22/16 13:15 11/29/16 08:47 Protonix Susp PEG 40 mg DAILY OTTONIEL Administration Silver Sulfadiazine 1 applic 11/23/16 21:00 11/29/16 08:50 Silvadene 1% 50 Gm TOP 1 applic 0900,2100 OTTONIEL Administration Sucralfate 1 gm 11/22/16 17:00 11/29/16 12:25 Carafate Oral Susp PEG 1 gm TID OTTONIEL Administration - Patient Studies Lab Studies: Lab Studies 11/29/16 11/29/16 11/29/16 Range/Units 11:19 05:30 05:30 WBC 16.4 H (4.8-10.8) K/uL RBC 2.93 L (4.40-5.90) Mil/uL Hgb 8.3 L (12.0-18.0) g/dL Hct 26.0 L (35.0-51.0) % MCV 88.7 (80.0-94.0) fl MCH 28.3 (27.0-31.0) pg MCHC 32.0 L (33.0-37.0) g/dL RDW 16.5 H (11.5-14.5) % Plt Count 184 (130-400) K/uL pCO2 (35-45) mm/Hg pO2 (80-100) mm/Hg HCO3 (21-28) mmol/L ABG pH (7.35-7.45) ABG Total CO2 (22-28) mmol/L ABG O2 Saturation (95-98) % ABG O2 Content (15-23) ML/dL ABG Base Excess (-2.0-3.0) mmol/L ABG Hemoglobin (11.7-17.4) g/dL ABG Carboxyhemoglobin (0.5-1.5) % POC ABG HHb (Measured) (0.0-5.0) % ABG Methemoglobin (0.0-3.0) % ABG O2 Capacity (16-24) mL/dL Emmanuel Test A-a O2 Difference mm/Hg Hgb O2 Saturation (95.0-98.0) % Vent Mode Mechanical Rate FiO2 % Tidal Volume PEEP Sodium 144 (132-148) mmol/l Potassium 5.4 H (3.6-5.0) MMOL/L Chloride 112 H (98-107) mmol/L Carbon Dioxide 19 L (22-30) mmol/L Anion Gap 18 (10-20) BUN 112 H* D (9-20) mg/dl Creatinine 2.9 H (0.8-1.5) mg/dL Est GFR ( Amer) 26 Est GFR (Non-Af Amer) 21 POC Glucose (mg/dL) 139 H (65-110) mg/dL Random Glucose 111 H (75-110) mg/dL Calcium 8.7 (8.4-10.2) mg/dL 11/29/16 11/29/16 11/28/16 Range/Units 05:12 04:46 21:18 WBC (4.8-10.8) K/uL RBC (4.40-5.90) Mil/uL Hgb (12.0-18.0) g/dL Hct (35.0-51.0) % MCV (80.0-94.0) fl MCH (27.0-31.0) pg MCHC (33.0-37.0) g/dL RDW (11.5-14.5) % Plt Count (130-400) K/uL pCO2 28 L (35-45) mm/Hg pO2 193 H (80-100) mm/Hg HCO3 23.0 (21-28) mmol/L ABG pH 7.47 H (7.35-7.45) ABG Total CO2 21.3 L (22-28) mmol/L ABG O2 Saturation 100.4 H (95-98) % ABG O2 Content 13.2 L (15-23) ML/dL ABG Base Excess -2.5 L (-2.0-3.0) mmol/L ABG Hemoglobin 9.3 L (11.7-17.4) g/dL ABG Carboxyhemoglobin 1.4 (0.5-1.5) % POC ABG HHb (Measured) -0.4 L (0.0-5.0) % ABG Methemoglobin 1.5 (0.0-3.0) % ABG O2 Capacity 13.1 L (16-24) mL/dL Emmanuel Test Yes A-a O2 Difference 93.0 mm/Hg Hgb O2 Saturation 97.5 (95.0-98.0) % Vent Mode A/c Mechanical Rate 14 FiO2 45.0 % Tidal Volume 450 PEEP 5 Sodium (132-148) mmol/l Potassium (3.6-5.0) MMOL/L Chloride (98-107) mmol/L Carbon Dioxide (22-30) mmol/L Anion Gap (10-20) BUN (9-20) mg/dl Creatinine (0.8-1.5) mg/dL Est GFR ( Amer) Est GFR (Non-Af Amer) POC Glucose (mg/dL) 115 H 104 (65-110) mg/dL Random Glucose (75-110) mg/dL Calcium (8.4-10.2) mg/dL 11/28/16 Range/Units 19:10 WBC (4.8-10.8) K/uL RBC (4.40-5.90) Mil/uL Hgb (12.0-18.0) g/dL Hct (35.0-51.0) % MCV (80.0-94.0) fl MCH (27.0-31.0) pg MCHC (33.0-37.0) g/dL RDW (11.5-14.5) % Plt Count (130-400) K/uL pCO2 (35-45) mm/Hg pO2 (80-100) mm/Hg HCO3 (21-28) mmol/L ABG pH (7.35-7.45) ABG Total CO2 (22-28) mmol/L ABG O2 Saturation (95-98) % ABG O2 Content (15-23) ML/dL ABG Base Excess (-2.0-3.0) mmol/L ABG Hemoglobin (11.7-17.4) g/dL ABG Carboxyhemoglobin (0.5-1.5) % POC ABG HHb (Measured) (0.0-5.0) % ABG Methemoglobin (0.0-3.0) % ABG O2 Capacity (16-24) mL/dL Emmanuel Test A-a O2 Difference mm/Hg Hgb O2 Saturation (95.0-98.0) % Vent Mode Mechanical Rate FiO2 % Tidal Volume PEEP Sodium (132-148) mmol/l Potassium (3.6-5.0) MMOL/L Chloride (98-107) mmol/L Carbon Dioxide (22-30) mmol/L Anion Gap (10-20) BUN (9-20) mg/dl Creatinine (0.8-1.5) mg/dL Est GFR ( Amer) Est GFR (Non-Af Amer) POC Glucose (mg/dL) 108 (65-110) mg/dL Random Glucose (75-110) mg/dL Calcium (8.4-10.2) mg/dL Laboratory Results - last 24 hr 11/28/16 11/28/16 11/29/16 19:10 21:18 04:46 WBC RBC Hgb Hct MCV MCH MCHC RDW Plt Count pCO2 28 L pO2 193 H HCO3 23.0 ABG pH 7.47 H ABG Total CO2 21.3 L ABG O2 Saturation 100.4 H ABG O2 Content 13.2 L ABG Base Excess -2.5 L ABG Hemoglobin 9.3 L ABG Carboxyhemoglobin 1.4 POC ABG HHb (Measured) -0.4 L ABG Methemoglobin 1.5 ABG O2 Capacity 13.1 L Emmanuel Test Yes A-a O2 Difference 93.0 Hgb O2 Saturation 97.5 Vent Mode A/c Mechanical Rate 14 FiO2 45.0 Tidal Volume 450 PEEP 5 Sodium Potassium Chloride Carbon Dioxide Anion Gap BUN Creatinine Est GFR ( Amer) Est GFR (Non-Af Amer) POC Glucose (mg/dL) 108 104 Random Glucose Calcium 11/29/16 11/29/16 11/29/16 05:12 05:30 05:30 WBC 16.4 H RBC 2.93 L Hgb 8.3 L Hct 26.0 L MCV 88.7 MCH 28.3 MCHC 32.0 L RDW 16.5 H Plt Count 184 pCO2 pO2 HCO3 ABG pH ABG Total CO2 ABG O2 Saturation ABG O2 Content ABG Base Excess ABG Hemoglobin ABG Carboxyhemoglobin POC ABG HHb (Measured) ABG Methemoglobin ABG O2 Capacity Emmanuel Test A-a O2 Difference Hgb O2 Saturation Vent Mode Mechanical Rate FiO2 Tidal Volume PEEP Sodium 144 Potassium 5.4 H Chloride 112 H Carbon Dioxide 19 L Anion Gap 18 BUN 112 H* D Creatinine 2.9 H Est GFR ( Amer) 26 Est GFR (Non-Af Amer) 21 POC Glucose (mg/dL) 115 H Random Glucose 111 H Calcium 8.7 11/29/16 11:19 WBC RBC Hgb Hct MCV MCH MCHC RDW Plt Count pCO2 pO2 HCO3 ABG pH ABG Total CO2 ABG O2 Saturation ABG O2 Content ABG Base Excess ABG Hemoglobin ABG Carboxyhemoglobin POC ABG HHb (Measured) ABG Methemoglobin ABG O2 Capacity Emmanuel Test A-a O2 Difference Hgb O2 Saturation Vent Mode Mechanical Rate FiO2 Tidal Volume PEEP Sodium Potassium Chloride Carbon Dioxide Anion Gap BUN Creatinine Est GFR ( Amer) Est GFR (Non-Af Amer) POC Glucose (mg/dL) 139 H Random Glucose Calcium Fingerstick Blood Sugar Results: 139 Assessment/Plan - Assessment and Plan (Free Text) Assessment: ASSESSMENT: S/P card arrest; had long CPR Anoxic Brain Injury: no signs of recovery COPD: stable Resp Failure: A fib PLAN: Continue meds, reviewed Continue Full vent support, not candidate for vent weaning, decreased Fio to 0.40 Continue Antibiotic with IV Tigecycline for Kleb coverage follow up cultures A-Fib, HR controlled on Amiodarone 200 mg PEG daily, cardiology following, increased metoprolol Frequent Neuro check, neurology following PRN Tylenol for fever G Tube feeding Monitor renal function Bronchodilator Nebs Aggressive Pulmonary toilets Poor prognosis Pall Care consult Pain issues, skin care, head of the bed elevation, GI/DVT prophylaxis, glycemic control were addressed.
--- NOTE | 2016-11-29 14:29 | CP.PCM.PN ---
Subjective - Date & Time of Evaluation Date of Evaluation: 11/29/16 Time of Evaluation: 11:00 - Subjective Subjective: UNRESPONSIVE Objective - Vital Signs/Intake and Output Vital Signs (last 24 hours): Temp Pulse Resp BP Pulse Ox 98 F 99 H 28 H 136/85 99 11/29/16 12:00 11/29/16 14:00 11/29/16 14:00 11/29/16 14:00 11/29/16 14:00 Intake and Output: 11/29/16 11/29/16 06:59 18:59 Intake Total 940 Output Total 810 Balance 130 - Medications Medications: Current Medications Acetaminophen (Tylenol 650mg/20.3ml Solution Ud) 650 mg PEG Q4 PRN PRN Reason: Pain, moderate (4-7) Last Admin: 11/25/16 11:50 Dose: 650 mg Acetaminophen (Tylenol 650mg/20.3ml Solution Ud) 650 mg PEG Q4 PRN PRN Reason: Fever >100.4 F Last Admin: 11/29/16 00:04 Dose: 650 mg Acetylcysteine (Mucomyst 10% 4ml) 2 ml IH RBID [facility] Last Admin: 11/29/16 09:00 Dose: 2 ml Albuterol Sulfate (Albuterol 0.083% Inhal Mary (2.5 Mg/3 Ml) Ud) 2.5 mg INH RQ4 PRN PRN Reason: Shortness of Breath Last Admin: 11/23/16 03:48 Dose: 2.5 mg Albuterol/Ipratropium (Duoneb 3 Mg/0.5 Mg (3 Ml) Ud) 3 ml INH RQ6 [facility] Last Admin: 11/29/16 13:52 Dose: 3 ml Amiodarone HCl (Cordarone) 200 mg PEG DAILY [facility] Last Admin: 11/29/16 08:48 Dose: 200 mg Aspirin (Aspirin Chewable) 81 mg PEG DAILY [facility] Last Admin: 11/29/16 08:51 Dose: 81 mg Collagenase (Santyl) 1 applic TOP 0900,2100 [facility] Last Admin: 11/29/16 08:49 Dose: 1 applic Dimethicone (Proshield Plus Skin Protectant) 1 applic TOP 0900,2100 [facility] Last Admin: 11/29/16 08:50 Dose: 1 applic Ferrous Sulfate (Feosol Liq) 450 mg PEG DAILY [facility] Last Admin: 11/29/16 08:49 Dose: 450 mg Fluticasone Propionate (Flonase) 2 spr JAKUB DAILY PRN PRN Reason: ALLERGY SYMPTOMS Tigecycline 50 mg/ Sodium (Chloride) 100 mls @ 100 mls/hr IVPB Q12@0400,1600 [facility] Last Admin: 11/29/16 03:01 Dose: 100 mls/hr Dexamethasone 4 mg/ Sodium (Chloride) 51 mls @ 102 mls/hr IVPB DAILY [facility] Last Admin: 11/29/16 08:45 Dose: 102 mls/hr Metoclopramide HCl (Reglan) 10 mg PEG HS [facility] Last Admin: 11/28/16 21:51 Dose: 10 mg Metoprolol Tartrate (Lopressor) 25 mg PO Q12 [facility] Last Admin: 11/29/16 08:47 Dose: 25 mg Ondansetron HCl (Zofran Odt) 4 mg PEG Q8 [facility] Last Admin: 11/24/16 16:40 Dose: 4 mg Pantoprazole Sodium (Protonix Susp) 40 mg PEG DAILY [facility] Last Admin: 11/29/16 08:47 Dose: 40 mg Silver Sulfadiazine (Silvadene 1% 50 Gm) 1 applic TOP 0900,2100 [facility] Last Admin: 11/29/16 08:50 Dose: 1 applic Sucralfate (Carafate Oral Susp) 1 gm PEG TID [facility] Last Admin: 11/29/16 12:25 Dose: 1 gm - Labs Labs: 11/29/16 05:30 11/29/16 05:30 PT 12.7 SECONDS (9.6-11.2) H 11/24/16 06:00 INR 1.22 (0.92-1.08) H 11/24/16 06:00 APTT 33.9 SECONDS (23.3-32.5) H D 11/24/16 06:00 - Respiratory Exam Respiratory Exam: Rales, Rhonchi - Cardiovascular Exam Cardiovascular Exam: Irregular Rhythm, +S1, +S2 - Extremities Exam Additional comments: NO SIGNIFICANT EDEMA - Additional Findings Additional findings: SPA ASSOCIATE ATRIAL FIBRILLATION, R 98 BPM CXR BILATERAL INFILTRATES BUN/CR 112/2.9 Assessment and Plan - Assessment and Plan (Free Text) Assessment: PNEUMONIA COPD WITH RESPIRATORY FAILURE CAD ATRIAL FIBRILLATION SMITA ON TOP OF CRF PROGNOSIS VERY GUARDED Plan: CONTINUE MV, AMIODARONE, ASPIRIN, METOPROLOL, IV ANTIBIOTICS, STEROIDS, BRONCHODILATORS PATIENT DISCUSSED WITH THE MATE CHIEF-IV FLUIDS RECOMMENDED FOR RISING BUN/CR AND TO CONSIDER HAVING NEPHROLOGY SEE THE PATIENT AGAIN(SEEN BY DR SWENSON AND DR LARA ON PREVIOUS ADMISSIONS)
[2016-11-29] MEDS ORDERED: Sodium Bicarbonate 8.4% 150 MEQ in Dextrose 5% In Water 1,000 ML IV SCH (17:53)
--- NOTE | 2016-11-29 18:42 | PN ---
DATE: 11/29/2016 ROOM: 423. SUBJECTIVE: This is a 71-year-old male with recent acute respiratory insufficiency related to underl willis chronic obstructive lung disease and currently on IV steroids given as 4 mg once daily as ordere d. His glycemic levels are fluctuating as expected from the underlying increased insulin resistance thereof. His latest chemistries include a BUN of 112, sodium 144, potassium 5.4, chloride 112, CO2 1 9, glucose 111 and creatinine 2.9. His glucose levels are fluctuating with glucose values ranging fr om 139-166 mg/dL. It was 104-115 at bedtime last night. So at this time, we will continue the prese nt medical management as ordered and will obtain serial chemistries and supplement accordingly as nee ded. We will follow. Anabella Sebastian MD cc: [id number] TT: 11/29/2016 18:42:39 Confirmation # [id number] Dictation # [id number] brandon
[2016-11-30] MEDS: Albuterol-Ipratrop 3 mg / 0.5 (3 ml) UD INH SCH ×4 (01:07→19:23)
[2016-11-30 05:57] LABS: ABG ALLEN TEST YES; ABG MECHANICAL RATE 14; ARTERIAL BLOOD GAS HCO3 24.9 mmol/L (21-28); ARTERIAL BLOOD GAS MODE PRVC/AC; ARTERIAL BLOOD GAS O2 CAPACITY 11.9 mL/dL (16-24); ARTERIAL BLOOD GAS PH 7.49 (7.35-7.45); ARTERIAL BLOOD GAS PO2 180 mm/Hg (80-100); ARTERIAL BLOOD HGB O2 SAT 97.9 % (95.0-98.0); ATERIAL BLOOD GAS PEEP 5; CARBOXYHEMOGLOBIN 1.7 % (0.5-1.5); HHB -0.8 % (0.0-5.0); METHEMOGLOBIN 1.3 % (0.0-3.0)
[2016-11-30 06:52] LABS: HEMATOCRIT 24.1 % (35.0-51.0); MEAN CELL VOLUME 88.6 fl (80.0-94.0); MEAN CORPUSCULAR HEMOGLOBIN 28.1 pg (27.0-31.0); MEAN CORPUSCULAR HGB CONC 31.7 g/dL (33.0-37.0); RED CELL DISTRIBUTION WIDTH 16.4 % (11.5-14.5); WHITE BLOOD COUNT 20.9 K/uL (4.8-10.8)
[2016-11-30 07:01] LABS: CALCIUM 8.7 mg/dL (8.4-10.2)
[2016-11-30] MEDS: Acetylcysteine 10% 4 ML IH SCH ×2 (07:59→19:23)
[2016-11-30] MEDS: Sucralfate 1 gm/10 ml Oral Susp UD PEG SCH ×3 (08:27→16:07)
[2016-11-30] MEDS: Ferrous Sulfate 300 mg/5 mL Liq UD PEG SCH (08:28)
[2016-11-30] MEDS: Dexamethasone 4 MG in Sodium Chloride 0.9% 50 ML IVPB SCH (08:28)
[2016-11-30] MEDS: Pantoprazole 40 mg Susp UD PEG SCH (08:29)
[2016-11-30] MEDS: Santyl Collagenase OINTMENT TOP SCH ×2 (08:29→20:43)
[2016-11-30] MEDS: Proshield Plus GEL TOP SCH ×2 (08:29→20:41)
[2016-11-30] MEDS: Silver Sulfadiazine 1% CREAM (50 gm) TOP SCH ×2 (08:30→20:40)
--- NOTE | 2016-11-30 08:48 | CP.CCUPN ---
CCU Subjective - Physician Review Events Since Last Encounter (Free Text): 11/30/16 08:44 unresponsive On vent d/w with son yesterday, still want " full code " CCU Objective - Vital Signs / Intake & Output Vital Signs (Last 4 hours): Vital Signs Temp Pulse Resp BP Pulse Ox 11/30/16 08:28 101 H 124/65 11/30/16 08:27 101 H 124/65 11/30/16 08:00 97.7 F 107 H 14 135/86 100 11/30/16 05:49 108 H 25 H 150/81 100 Intake and Output (Last 8hrs): Intake & Output 11/29/16 11/30/16 11/30/16 22:59 06:59 14:59 Intake Total 960 1315 Output Total 910 900 Balance 50 415 Intake: IV 180 510 Intake, Piggyback 100 100 Tube Feeding 480 405 Free Water Flush 200 300 Output: Gastric Amount 10 0 Stomach 10 0 Urine 900 900 Condom 900 Urethral ([place]) 900 Other: # Bowel Movements 2 2 - Physical Exam Narrative Physical Exam (Free Text): 11/30/16 08:45 P/E Neck: No JVD Lungs: decreased breath sounds in bases, bilaterally Heart: No gallop Abdomen: soft, Heart: s1 S2 irregular Head: Positive for: Atraumatic, Normocephalic Pupils: Positive for: PERRL Extroacular Muscles: Positive for: EOMI Conjunctiva: Positive for: Normal Mouth: Positive for: Moist Mucous Membranes Pharnyx: Positive for: Normal, Other (ET tube in place) Nose (External): Positive for: Atraumatic Neck: Positive for: Normal Range of Motion Respiratory/Chest: Positive for: Good Air Exchange, Wheezes, Decreased Breath Sounds, Rhonchi. Negative for: Clear to Auscultation, Respiratory Distress, Accessory Muscle Use Cardiovascular: Positive for: Irregular Rhythm, Peripheal Pulses Present. Negative for: Murmurs, Tachycardic, Bradycardic Abdomen: Positive for: Distention, Normal Bowel Sounds. Negative for: Tenderness Upper Extremity: Positive for: Normal Inspection Lower Extremity: Positive for: Normal Inspection, Edema Neurological: Positive for: GCS=15, CN II-XII Intact, Speech Normal Skin: Positive for: Warm, Dry, Rashes, Normal Color Psychiatric: Positive for: Alert, Oriented x 3, Normal Insight, Normal Concentration - Medications Active Medications: Active Medications Generic Name Dose Route Start Last Admin Trade Name Freq PRN Reason Stop Dose Admin Acetaminophen 650 mg 11/22/16 16:39 11/25/16 11:50 Tylenol 650mg/20.3ml Solution Ud PEG 650 mg Q4 PRN Administration Pain, moderate (4-7) Acetaminophen 650 mg 11/22/16 16:45 11/29/16 00:04 Tylenol 650mg/20.3ml Solution Ud PEG 650 mg Q4 PRN Administration Fever >100.4 F Acetylcysteine 2 ml 11/22/16 20:00 11/30/16 07:59 Mucomyst 10% 4ml IH 2 ml RBID [facility] Administration Albuterol Sulfate 2.5 mg 11/22/16 14:14 11/23/16 03:48 Albuterol 0.083% Inhal Mary (2.5 Mg/3 Ml) Ud INH 2.5 mg RQ4 PRN Administration Shortness of Breath Albuterol/Ipratropium 3 ml 11/24/16 14:00 11/30/16 07:59 Duoneb 3 Mg/0.5 Mg (3 Ml) Ud INH 3 ml RQ6 O[facility]EL Administration Amiodarone HCl 200 mg 11/23/16 09:00 11/30/16 08:27 Cordarone PEG 200 mg DAILY [facility] Administration Aspirin 81 mg 11/22/16 13:15 11/30/16 08:27 Aspirin Chewable PEG 81 mg DAILY [facility] Administration Collagenase 1 applic 11/23/16 21:00 11/30/16 08:29 Santyl TOP 1 applic 0900,2100 [facility] Administration Dimethicone 1 applic 11/23/16 21:00 11/30/16 08:29 Proshield Plus Skin Protectant TOP 1 applic 0900,2100 [facility] Administration Ferrous Sulfate 450 mg 11/22/16 13:15 11/30/16 08:28 Feosol Liq PEG 450 mg DAILY [facility] Administration Fluticasone Propionate 2 spr 11/22/16 13:06 Flonase JAKUB DAILY PRN ALLERGY SYMPTOMS Tigecycline 50 mg/ Sodium 100 mls @ 100 mls/hr 11/27/16 04:00 11/30/16 03:54 Chloride IVPB 100 mls/hr Q12@0400,1600 [facility] Administration Dexamethasone 4 mg/ Sodium 51 mls @ 102 mls/hr 11/29/16 09:00 11/30/16 08:28 Chloride IVPB 102 mls/hr DAILY [facility] Administration Sodium Bicarbonate 150 meq/ 1,150 mls @ 60 mls/hr 11/29/16 17:53 11/29/16 18: 22 Dextrose IV 11/30/16 17:55 60 mls/hr .[id number] [facility] Administration Metoclopramide HCl 10 mg 11/22/16 22:00 11/29/16 22:59 Reglan PEG 10 mg HS [facility] Administration Metoprolol Tartrate 25 mg 11/28/16 21:00 11/30/16 08:28 Lopressor PO 25 mg Q12 [facility] Administration Ondansetron HCl 4 mg 11/22/16 17:00 11/24/16 16:40 Zofran Odt PEG 4 mg Q8 [facility] Administration Pantoprazole Sodium 40 mg 11/22/16 13:15 11/30/16 08:29 Protonix Susp PEG 40 mg DAILY [facility] Administration Silver Sulfadiazine 1 applic 11/23/16 21:00 11/30/16 08:30 Silvadene 1% 50 Gm TOP 1 applic 0900,2100 [facility] Administration Sucralfate 1 gm 11/22/16 17:00 11/30/16 08:27 Carafate Oral Susp PEG 1 gm TID [facility] Administration - Patient Studies Lab Studies: Lab Studies 11/30/16 11/30/16 11/30/16 Range/Units 05:43 05:33 05:30 WBC (4.8-10.8) K/uL RBC (4.40-5.90) Mil/uL Hgb (12.0-18.0) g/dL Hct (35.0-51.0) % MCV (80.0-94.0) fl MCH (27.0-31.0) pg MCHC (33.0-37.0) g/dL RDW (11.5-14.5) % Plt Count (130-400) K/uL pCO2 30 L (35-45) mm/Hg pO2 180 H (80-100) mm/Hg HCO3 24.9 (21-28) mmol/L ABG pH 7.49 H (7.35-7.45) ABG Total CO2 23.8 (22-28) mmol/L ABG O2 Saturation 100.8 H (95-98) % ABG O2 Content 12.0 L (15-23) ML/dL ABG Base Excess -0.1 (-2.0-3.0) mmol/L ABG Hemoglobin 8.4 L (11.7-17.4) g/dL ABG Carboxyhemoglobin 1.7 H (0.5-1.5) % POC ABG HHb (Measured) -0.8 L (0.0-5.0) % ABG Methemoglobin 1.3 (0.0-3.0) % ABG O2 Capacity 11.9 L (16-24) mL/dL Emmanuel Test Yes A-a O2 Difference 103.0 mm/Hg Hgb O2 Saturation 97.9 (95.0-98.0) % Vent Mode Prvc/ac Mechanical Rate 14 FiO2 45.0 % Tidal Volume 450 PEEP 5 Sodium 144 (132-148) mmol/l Potassium 5.0 (3.6-5.0) MMOL/L Chloride 110 H (98-107) mmol/L Carbon Dioxide 23 (22-30) mmol/L Anion Gap 16 (10-20) BUN 119 H* (9-20) mg/dl Creatinine 2.8 H (0.8-1.5) mg/dL Est GFR ( Amer) 27 Est GFR (Non-Af Amer) 22 POC Glucose (mg/dL) 150 H (65-110) mg/dL Random Glucose 123 H (75-110) mg/dL Calcium 8.7 (8.4-10.2) mg/dL 11/30/16 11/29/16 11/29/16 Range/Units 05:30 22:06 15:32 WBC 20.9 H (4.8-10.8) K/uL RBC 2.72 L (4.40-5.90) Mil/uL Hgb 7.6 L (12.0-18.0) g/dL Hct 24.1 L (35.0-51.0) % MCV 88.6 (80.0-94.0) fl MCH 28.1 (27.0-31.0) pg MCHC 31.7 L (33.0-37.0) g/dL RDW 16.4 H (11.5-14.5) % Plt Count 164 (130-400) K/uL pCO2 (35-45) mm/Hg pO2 (80-100) mm/Hg HCO3 (21-28) mmol/L ABG pH (7.35-7.45) ABG Total CO2 (22-28) mmol/L ABG O2 Saturation (95-98) % ABG O2 Content (15-23) ML/dL ABG Base Excess (-2.0-3.0) mmol/L ABG Hemoglobin (11.7-17.4) g/dL ABG Carboxyhemoglobin (0.5-1.5) % POC ABG HHb (Measured) (0.0-5.0) % ABG Methemoglobin (0.0-3.0) % ABG O2 Capacity (16-24) mL/dL Emmanuel Test A-a O2 Difference mm/Hg Hgb O2 Saturation (95.0-98.0) % Vent Mode Mechanical Rate FiO2 % Tidal Volume PEEP Sodium (132-148) mmol/l Potassium (3.6-5.0) MMOL/L Chloride (98-107) mmol/L Carbon Dioxide (22-30) mmol/L Anion Gap (10-20) BUN (9-20) mg/dl Creatinine (0.8-1.5) mg/dL Est GFR ( Amer) Est GFR (Non-Af Amer) POC Glucose (mg/dL) 187 H 166 H (65-110) mg/dL Random Glucose (75-110) mg/dL Calcium (8.4-10.2) mg/dL 11/29/16 Range/Units 11:19 WBC (4.8-10.8) K/uL RBC (4.40-5.90) Mil/uL Hgb (12.0-18.0) g/dL Hct (35.0-51.0) % MCV (80.0-94.0) fl MCH (27.0-31.0) pg MCHC (33.0-37.0) g/dL RDW (11.5-14.5) % Plt Count (130-400) K/uL pCO2 (35-45) mm/Hg pO2 (80-100) mm/Hg HCO3 (21-28) mmol/L ABG pH (7.35-7.45) ABG Total CO2 (22-28) mmol/L ABG O2 Saturation (95-98) % ABG O2 Content (15-23) ML/dL ABG Base Excess (-2.0-3.0) mmol/L ABG Hemoglobin (11.7-17.4) g/dL ABG Carboxyhemoglobin (0.5-1.5) % POC ABG HHb (Measured) (0.0-5.0) % ABG Methemoglobin (0.0-3.0) % ABG O2 Capacity (16-24) mL/dL Emmanuel Test A-a O2 Difference mm/Hg Hgb O2 Saturation (95.0-98.0) % Vent Mode Mechanical Rate FiO2 % Tidal Volume PEEP Sodium (132-148) mmol/l Potassium (3.6-5.0) MMOL/L Chloride (98-107) mmol/L Carbon Dioxide (22-30) mmol/L Anion Gap (10-20) BUN (9-20) mg/dl Creatinine (0.8-1.5) mg/dL Est GFR ( Amer) Est GFR (Non-Af Amer) POC Glucose (mg/dL) 139 H (65-110) mg/dL Random Glucose (75-110) mg/dL Calcium (8.4-10.2) mg/dL Laboratory Results - last 24 hr 11/29/16 11/29/16 11/29/16 11:19 15:32 22:06 WBC RBC Hgb Hct MCV MCH MCHC RDW Plt Count pCO2 pO2 HCO3 ABG pH ABG Total CO2 ABG O2 Saturation ABG O2 Content ABG Base Excess ABG Hemoglobin ABG Carboxyhemoglobin POC ABG HHb (Measured) ABG Methemoglobin ABG O2 Capacity Emmanuel Test A-a O2 Difference Hgb O2 Saturation Vent Mode Mechanical Rate FiO2 Tidal Volume PEEP Sodium Potassium Chloride Carbon Dioxide Anion Gap BUN Creatinine Est GFR ( Amer) Est GFR (Non-Af Amer) POC Glucose (mg/dL) 139 H 166 H 187 H Random Glucose Calcium 11/30/16 11/30/16 11/30/16 05:30 05:30 05:33 WBC 20.9 H RBC 2.72 L Hgb 7.6 L Hct 24.1 L MCV 88.6 MCH 28.1 MCHC 31.7 L RDW 16.4 H Plt Count 164 pCO2 30 L pO2 180 H HCO3 24.9 ABG pH 7.49 H ABG Total CO2 23.8 ABG O2 Saturation 100.8 H ABG O2 Content 12.0 L ABG Base Excess -0.1 ABG Hemoglobin 8.4 L ABG Carboxyhemoglobin 1.7 H POC ABG HHb (Measured) -0.8 L ABG Methemoglobin 1.3 ABG O2 Capacity 11.9 L Emmanuel Test Yes A-a O2 Difference 103.0 Hgb O2 Saturation 97.9 Vent Mode Prvc/ac Mechanical Rate 14 FiO2 45.0 Tidal Volume 450 PEEP 5 Sodium 144 Potassium 5.0 Chloride 110 H Carbon Dioxide 23 Anion Gap 16 BUN 119 H* Creatinine 2.8 H Est GFR ( Amer) 27 Est GFR (Non-Af Amer) 22 POC Glucose (mg/dL) Random Glucose 123 H Calcium 8.7 11/30/16 05:43 WBC RBC Hgb Hct MCV MCH MCHC RDW Plt Count pCO2 pO2 HCO3 ABG pH ABG Total CO2 ABG O2 Saturation ABG O2 Content ABG Base Excess ABG Hemoglobin ABG Carboxyhemoglobin POC ABG HHb (Measured) ABG Methemoglobin ABG O2 Capacity Emmanuel Test A-a O2 Difference Hgb O2 Saturation Vent Mode Mechanical Rate FiO2 Tidal Volume PEEP Sodium Potassium Chloride Carbon Dioxide Anion Gap BUN Creatinine Est GFR ( Amer) Est GFR (Non-Af Amer) POC Glucose (mg/dL) 150 H Random Glucose Calcium Fingerstick Blood Sugar Results: 150 Assessment/Plan - Assessment and Plan (Free Text) Assessment: Assessment/Plan - Assessment and Plan (Free Text) Assessment: ASSESSMENT: S/P card arrest; had long CPR Anoxic Brain Injury: no signs of recovery COPD: stable Resp Failure: on vent, with mild resp alkalosis and A fib SMITA: with h/o CKD-3: SMITA: ATN and its not pre-renal, pt is not dehydrated PLAN: Continue meds, reviewed Continue Full vent support, not candidate for vent weaning, decreased Fio to 0.40 Continue Antibiotic with IV Tigecycline for Kleb coverage follow up cultures A-Fib, HR controlled on Amiodarone 200 mg PEG daily, cardiology following, increased metoprolol Frequent Neuro check, neurology following PRN Tylenol for fever G Tube feeding Monitor renal function Bronchodilator Nebs Aggressive Pulmonary toilets Pt is receiving enough IVF, TF and IVF > 100 cc/h Renal consult for f/u Poor prognosis Pall Care consult Pain issues, skin care, head of the bed elevation, GI/DVT prophylaxis, glycemic control were addressed.
--- NOTE | 2016-11-30 09:21 | RAD ---
HISTORY: intubated COMPARISON: 11/29/2016 FINDINGS: LUNGS: Mild bilateral interstitial changes. PLEURA: No significant pleural effusion identified, no pneumothorax apparent. CARDIOVASCULAR: Normal. Status post CABG. OSSEOUS STRUCTURES: No significant abnormalities. VISUALIZED UPPER ABDOMEN: Normal. OTHER FINDINGS: ETT above the jung. Right Port-A-Cath in place. IMPRESSION: Mild bilateral interstitial changes. Slight improvement since prior exam.
--- NOTE | 2016-11-30 12:36 | PN ---
DATE: 11/30/2016 ROOM: 423 ICU. This is a 71-year-old male being followed closely for recurrent aspiration pneumonia with underlying exacerbation of COPD, currently on IV steroid therapy with Decadron given as 4 mg IV piggyback once d aily as ordered. His glycemic fluctuations are much improved at this time and the latest glucose levels have ranged fr om 150-156 and 187 mg/dL. His latest chemistries include a BUN of 119, sodium 144, potassium 5.0, ch loride 110, CO2 23, glucose 123 and creatinine 2.8. So at this time, we will continue the serial chemistries and supplement accordingly as needed. We wi ll follow. Anabella Sebastian MD cc: [phone] TT: 11/30/2016 12:35:11 Confirmation # [id number] Dictation # [id number] en
--- NOTE | 2016-11-30 12:37 | CP.PCM.PN ---
Subjective - Date & Time of Evaluation Date of Evaluation: 11/30/16 Time of Evaluation: 07:00 - Subjective Subjective: unresponsive on vent family refuses palliative care has MDRO sputum cont rx Objective - Vital Signs/Intake and Output Vital Signs (last 24 hours): Temp Pulse Resp BP Pulse Ox 98.7 F 94 H 26 H 151/92 H 100 11/30/16 12:00 11/30/16 12:00 11/30/16 12:00 11/30/16 12:00 11/30/16 12:00 Intake and Output: 11/30/16 11/30/16 06:59 18:59 Intake Total 1805 775 Output Total 910 700 Balance 895 75 - Medications Medications: Current Medications Acetaminophen (Tylenol 650mg/20.3ml Solution Ud) 650 mg PEG Q4 PRN PRN Reason: Pain, moderate (4-7) Last Admin: 11/25/16 11:50 Dose: 650 mg Acetaminophen (Tylenol 650mg/20.3ml Solution Ud) 650 mg PEG Q4 PRN PRN Reason: Fever >100.4 F Last Admin: 11/29/16 00:04 Dose: 650 mg Acetylcysteine (Mucomyst 10% 4ml) 2 ml IH RBID [facility] Last Admin: 11/30/16 07:59 Dose: 2 ml Albuterol Sulfate (Albuterol 0.083% Inhal Mary (2.5 Mg/3 Ml) Ud) 2.5 mg INH RQ4 PRN PRN Reason: Shortness of Breath Last Admin: 11/23/16 03:48 Dose: 2.5 mg Albuterol/Ipratropium (Duoneb 3 Mg/0.5 Mg (3 Ml) Ud) 3 ml INH RQ6 [facility] Last Admin: 11/30/16 07:59 Dose: 3 ml Amiodarone HCl (Cordarone) 200 mg PEG DAILY [facility] Last Admin: 11/30/16 08:27 Dose: 200 mg Aspirin (Aspirin Chewable) 81 mg PEG DAILY [facility] Last Admin: 11/30/16 08:27 Dose: 81 mg Collagenase (Santyl) 1 applic TOP 0900,2099 [facility] Last Admin: 11/30/16 08:29 Dose: 1 applic Dimethicone (Proshield Plus Skin Protectant) 1 applic TOP 0900,2099 [facility] Last Admin: 11/30/16 08:29 Dose: 1 applic Ferrous Sulfate (Feosol Liq) 450 mg PEG DAILY [facility] Last Admin: 11/30/16 08:28 Dose: 450 mg Fluticasone Propionate (Flonase) 2 spr JAKUB DAILY PRN PRN Reason: ALLERGY SYMPTOMS Tigecycline 50 mg/ Sodium (Chloride) 100 mls @ 100 mls/hr IVPB Q12@0400,1600 [facility] Last Admin: 11/30/16 03:54 Dose: 100 mls/hr Dexamethasone 4 mg/ Sodium (Chloride) 51 mls @ 102 mls/hr IVPB DAILY [facility] Last Admin: 11/30/16 08:28 Dose: 102 mls/hr Sodium Bicarbonate 150 meq/ (Dextrose) 1,150 mls @ 60 mls/hr IV .[id number] [facility] Stop: 11/30/16 17:55 Last Admin: 11/29/16 18:22 Dose: 60 mls/hr Metoclopramide HCl (Reglan) 10 mg PEG HS [facility] Last Admin: 11/29/16 22:59 Dose: 10 mg Metoprolol Tartrate (Lopressor) 25 mg PO Q12 [facility] Last Admin: 11/30/16 08:28 Dose: 25 mg Ondansetron HCl (Zofran Odt) 4 mg PEG Q8 [facility] Last Admin: 11/24/16 16:40 Dose: 4 mg Pantoprazole Sodium (Protonix Susp) 40 mg PEG DAILY [facility] Last Admin: 11/30/16 08:29 Dose: 40 mg Silver Sulfadiazine (Silvadene 1% 50 Gm) 1 applic TOP 0900,2100 [facility] Last Admin: 11/30/16 08:30 Dose: 1 applic Sucralfate (Carafate Oral Susp) 1 gm PEG TID [facility] Last Admin: 11/30/16 12:00 Dose: 1 gm - Labs Labs: 11/30/16 05:30 11/30/16 05:30 PT 12.7 SECONDS (9.6-11.2) H 11/24/16 06:00 INR 1.22 (0.92-1.08) H 11/24/16 06:00 APTT 33.9 SECONDS (23.3-32.5) H D 11/24/16 06:00 - Constitutional Appears: Non-toxic, Chronically Ill - Head Exam Head Exam: NORMOCEPHALIC - Eye Exam Eye Exam: absent: Scleral icterus - ENT Exam ENT Exam: Mucous Membranes Dry - Neck Exam Neck Exam: absent: Lymphadenopathy - Respiratory Exam Respiratory Exam: Decreased Breath Sounds, Rhonchi - Cardiovascular Exam Cardiovascular Exam: REGULAR RHYTHM, +S1, +S2 - GI/Abdominal Exam GI & Abdominal Exam: Distended, Soft - Rectal Exam Rectal Exam: Deferred - Extremities Exam Extremities Exam: absent: Pedal Edema - Back Exam Back Exam: absent: CVA tenderness (L), CVA tenderness (R) - Neurological Exam Neurological Exam: Altered Assessment and Plan (1) COPD (chronic obstructive pulmonary disease) with acute bronchitis Status: Acute (2) Atrial fibrillation Status: Acute (3) CHF (congestive heart failure) Status: Acute (4) Dehydration Status: Acute (5) Moderate COPD (chronic obstructive pulmonary disease) Status: Acute (6) PAD (peripheral artery disease) Status: Acute (7) Pneumonia Status: Acute (8) COPD (chronic obstructive pulmonary disease) Status: Chronic (9) COPD exacerbation Status: Acute
--- NOTE | 2016-11-30 13:07 | CP.PCM.PN ---
Subjective - Date & Time of Evaluation Date of Evaluation: 11/30/16 Time of Evaluation: 22:22 - Subjective Subjective: Above noted Objective - Vital Signs/Intake and Output Vital Signs (last 24 hours): Temp Pulse Resp BP Pulse Ox 98.7 F 94 H 26 H 151/92 H 100 11/30/16 12:00 11/30/16 12:00 11/30/16 12:00 11/30/16 12:00 11/30/16 12:00 Intake and Output: 11/30/16 11/30/16 06:59 18:59 Intake Total 1805 775 Output Total 910 700 Balance 895 75 - Medications Medications: Current Medications Acetaminophen (Tylenol 650mg/20.3ml Solution Ud) 650 mg PEG Q4 PRN PRN Reason: Pain, moderate (4-7) Last Admin: 11/25/16 11:50 Dose: 650 mg Acetaminophen (Tylenol 650mg/20.3ml Solution Ud) 650 mg PEG Q4 PRN PRN Reason: Fever >100.4 F Last Admin: 11/29/16 00:04 Dose: 650 mg Acetylcysteine (Mucomyst 10% 4ml) 2 ml IH RBID [facility] Last Admin: 11/30/16 07:59 Dose: 2 ml Albuterol Sulfate (Albuterol 0.083% Inhal Mary (2.5 Mg/3 Ml) Ud) 2.5 mg INH RQ4 PRN PRN Reason: Shortness of Breath Last Admin: 11/23/16 03:48 Dose: 2.5 mg Albuterol/Ipratropium (Duoneb 3 Mg/0.5 Mg (3 Ml) Ud) 3 ml INH RQ6 [facility] Last Admin: 11/30/16 07:59 Dose: 3 ml Amiodarone HCl (Cordarone) 200 mg PEG DAILY [facility] Last Admin: 11/30/16 08:27 Dose: 200 mg Aspirin (Aspirin Chewable) 81 mg PEG DAILY [facility] Last Admin: 11/30/16 08:27 Dose: 81 mg Collagenase (Santyl) 1 applic TOP 0900,2100 [facility] Last Admin: 11/30/16 08:29 Dose: 1 applic Dimethicone (Proshield Plus Skin Protectant) 1 applic TOP 0900,2100 [facility] Last Admin: 11/30/16 08:29 Dose: 1 applic Ferrous Sulfate (Feosol Liq) 450 mg PEG DAILY [facility] Last Admin: 11/30/16 08:28 Dose: 450 mg Fluticasone Propionate (Flonase) 2 spr JAKUB DAILY PRN PRN Reason: ALLERGY SYMPTOMS Tigecycline 50 mg/ Sodium (Chloride) 100 mls @ 100 mls/hr IVPB Q12@0400,1600 [facility] Last Admin: 11/30/16 03:54 Dose: 100 mls/hr Dexamethasone 4 mg/ Sodium (Chloride) 51 mls @ 102 mls/hr IVPB DAILY [facility] Last Admin: 11/30/16 08:28 Dose: 102 mls/hr Sodium Bicarbonate 150 meq/ (Dextrose) 1,150 mls @ 60 mls/hr IV .[id number] [facility] Stop: 11/30/16 17:55 Last Admin: 11/29/16 18:22 Dose: 60 mls/hr Metoclopramide HCl (Reglan) 10 mg PEG HS [facility] Last Admin: 11/29/16 22:59 Dose: 10 mg Metoprolol Tartrate (Lopressor) 25 mg PO Q12 [facility] Last Admin: 11/30/16 08:28 Dose: 25 mg Ondansetron HCl (Zofran Odt) 4 mg PEG Q8 [facility] Last Admin: 11/24/16 16:40 Dose: 4 mg Pantoprazole Sodium (Protonix Susp) 40 mg PEG DAILY [facility] Last Admin: 11/30/16 08:29 Dose: 40 mg Silver Sulfadiazine (Silvadene 1% 50 Gm) 1 applic TOP 0900,2100 [facility] Last Admin: 11/30/16 08:30 Dose: 1 applic Sucralfate (Carafate Oral Susp) 1 gm PEG TID [facility] Last Admin: 11/30/16 12:00 Dose: 1 gm - Labs Labs: 11/30/16 05:30 11/30/16 05:30 PT 12.7 SECONDS (9.6-11.2) H 11/24/16 06:00 INR 1.22 (0.92-1.08) H 11/24/16 06:00 APTT 33.9 SECONDS (23.3-32.5) H D 11/24/16 06:00 - Respiratory Exam Respiratory Exam: Wheezes - Cardiovascular Exam Cardiovascular Exam: REGULAR RHYTHM - GI/Abdominal Exam GI & Abdominal Exam: Normal Bowel Sounds Assessment and Plan - Assessment and Plan (Free Text) Assessment: Acute Respiratory Failure Asystole Intubated Ventillatory support Aspiration?? HX COPD Klebsiella Pneumonia MDR ABX IVF Steroids Pulmonary ID S/P Asystole 2 to Pulmonary dx (S/P V-fib/ V-tach 2 to pulmonary dx) A-fib CAD S/P CABG Amiodorone Cardiology Swallowing?? aspiration?? PEG Jevity and oral feedings Hx s/p + C-diff + Ag -toxin Hx Dec oral intake improved on Megace SMITA/ CKD HX Hyperkalemia and hypokalemia etiol ?? Adrenal insufficiency?? Hx of Orthostatic Hypotension at TN ACTH Cortisol level ?? Florinef d/c Endo and Nephrology Consult Sick Euthyroid syndrome Endo Anemia etiol? Transfusion Chronic chest wall pain Pain meds
[2016-12-01] MEDS: Albuterol-Ipratrop 3 mg / 0.5 (3 ml) UD INH SCH ×4 (01:00→19:19)
[2016-12-01 05:12] LABS: HEMATOCRIT 25.2 % (35.0-51.0); MEAN CELL VOLUME 89.4 fl (80.0-94.0); MEAN CORPUSCULAR HEMOGLOBIN 27.5 pg (27.0-31.0); MEAN CORPUSCULAR HGB CONC 30.7 g/dL (33.0-37.0); RED CELL DISTRIBUTION WIDTH 16.8 % (11.5-14.5); WHITE BLOOD COUNT 27.6 K/uL (4.8-10.8)
[2016-12-01 05:22] LABS: CALCIUM 8.4 mg/dL (8.4-10.2); POTASSIUM 4.9 MMOL/L (3.6-5.0)
[2016-12-01] MEDS ORDERED: Sodium Bicarbonate 8.4% 150 MEQ in Dextrose 5% In Water 1,000 ML IV SCH (05:47)
[2016-12-01 05:51] LABS: ABG ALLEN TEST YES; ABG MECHANICAL RATE 12; ARTERIAL BLOOD GAS MODE PRVC AC; ARTERIAL BLOOD GAS O2 CAPACITY 15.9 mL/dL (16-24); ARTERIAL BLOOD GAS O2 CONTENT 15.9 ML/dL (15-23); ARTERIAL BLOOD GAS PH 7.54 (7.35-7.45); ARTERIAL BLOOD GAS PO2 470 mm/Hg (80-100); ARTERIAL BLOOD HGB O2 SAT 97.2 % (95.0-98.0); ATERIAL BLOOD GAS PEEP 5; CARBOXYHEMOGLOBIN 0.8 % (0.5-1.5); HHB 0.3 % (0.0-5.0); METHEMOGLOBIN 1.7 % (0.0-3.0)
[2016-12-01 06:19] LABS: ABG ALLEN TEST YES; ABG MECHANICAL RATE 12; ARTERIAL BLOOD GAS HCO3 26.8 mmol/L (21-28); ARTERIAL BLOOD GAS MODE PRVC AC; ARTERIAL BLOOD GAS O2 CAPACITY 11.7 mL/dL (16-24); ARTERIAL BLOOD GAS O2 CONTENT 11.8 ML/dL (15-23); ARTERIAL BLOOD GAS PH 7.55 (7.35-7.45); ARTERIAL BLOOD GAS PO2 144 mm/Hg (80-100); ARTERIAL BLOOD HGB O2 SAT 97.6 % (95.0-98.0); ATERIAL BLOOD GAS PEEP 5; CARBOXYHEMOGLOBIN 1.3 % (0.5-1.5); HHB -0.5 % (0.0-5.0); METHEMOGLOBIN 1.6 % (0.0-3.0)
[2016-12-01] MEDS: Acetylcysteine 10% 4 ML IH SCH (07:53)
[2016-12-01] MEDS: Sucralfate 1 gm/10 ml Oral Susp UD PEG SCH ×3 (08:27→16:04)
[2016-12-01] MEDS: Ferrous Sulfate 300 mg/5 mL Liq UD PEG SCH (08:29)
[2016-12-01] MEDS: Dexamethasone 4 MG in Sodium Chloride 0.9% 50 ML IVPB SCH (08:29)
[2016-12-01] MEDS: Pantoprazole 40 mg Susp UD PEG SCH (08:30)
[2016-12-01] MEDS: Santyl Collagenase OINTMENT TOP SCH ×2 (08:30→20:15)
[2016-12-01] MEDS: Proshield Plus GEL TOP SCH ×2 (08:30→20:15)
[2016-12-01] MEDS: Silver Sulfadiazine 1% CREAM (50 gm) TOP SCH ×2 (08:31→20:15)
--- NOTE | 2016-12-01 09:26 | CP.PCM.PN ---
Subjective - Date & Time of Evaluation Date of Evaluation: 12/01/16 Time of Evaluation: 09:11 - Subjective Subjective: The patient is seen on morning rounds in the intensive care unit. Interim events and notations in the EMR were reviewed. Today's chest x-ray was reviewed as well. He remains afebrile with stable blood pressure. Significant leukocytosis, in large part likely secondary to corticosteroid therapy. Renal function continues to worsen. He is alkalotic with a pH of 7.55. BUN has increased to 127 with a creatinine of 2.5 and an estimated GFR of 26. Clinically he remains unchanged with minimal response to painful stimulus. Nonpurposeful occasional movement of the lower extremities continues. Dependent edema is noted in the trunk area. No cyanosis. He remains orally intubated and mechanically ventilated. SPO2 100% on 40% oxygen, respiratory rate has decreased to 2022 breaths per minute. No dullness to percussion of the anterior thorax. No subcutaneous emphysema. No palpable lymphadenopathy. Breath sounds are present bilaterally with scattered sonorous rhonchi. No audible wheezing or bronchial breath sounds are noted. Review of medium rales are heard in the dependent zones of both lungs. Heart sounds are distant and rhythm appears regular at 100 bpm. Monitor shows what appears to be atrial fibrillation. Chest x-ray shows increased bronchovascular markings bilaterally but no consolidation. Pleural reaction at the left base causes blunting of the left costophrenic angle which has been a chronic finding. Renal consultation has been requested and he will be seen today. Sodium bicarbonate infusion should be discontinued. By later changes have been made and he is currently on CPAP/pressure support of 5/10 cm of water with an FiO2 of 40%. His SPO2 has remained at 100% and his breathing appears comfortable at 20 breaths per minute. At this time it appears unlikely he will recover from this incident and long- term plans need to be formulated. Objective - Vital Signs/Intake and Output Vital Signs (last 24 hours): Temp Pulse Resp BP Pulse Ox 97.6 F 111 H 16 109/72 100 12/01/16 08:00 12/01/16 08:29 12/01/16 08:00 12/01/16 08:29 12/01/16 08:00 Intake and Output: 11/30/16 12/01/16 23:59 11:59 Intake Total 1470 1245 Output Total 1000 925 Balance 470 320 - Medications Medications: Current Medications Acetaminophen (Tylenol 650mg/20.3ml Solution Ud) 650 mg PEG Q4 PRN PRN Reason: Pain, moderate (4-7) Last Admin: 11/25/16 11:50 Dose: 650 mg Acetaminophen (Tylenol 650mg/20.3ml Solution Ud) 650 mg PEG Q4 PRN PRN Reason: Fever >100.4 F Last Admin: 11/29/16 00:04 Dose: 650 mg Albuterol Sulfate (Albuterol 0.083% Inhal Mary (2.5 Mg/3 Ml) Ud) 2.5 mg INH RQ4 PRN PRN Reason: Shortness of Breath Last Admin: 11/23/16 03:48 Dose: 2.5 mg Albuterol/Ipratropium (Duoneb 3 Mg/0.5 Mg (3 Ml) Ud) 3 ml INH RQ6 [facility] Last Admin: 12/01/16 07:53 Dose: 3 ml Amiodarone HCl (Cordarone) 200 mg PEG DAILY [facility] Last Admin: 12/01/16 08:27 Dose: 200 mg Aspirin (Aspirin Chewable) 81 mg PEG DAILY [facility] Last Admin: 12/01/16 08:27 Dose: 81 mg Collagenase (Santyl) 1 applic TOP 0900,2100 [facility] Last Admin: 12/01/16 08:30 Dose: 1 applic Dimethicone (Proshield Plus Skin Protectant) 1 applic TOP 0900,2100 [facility] Last Admin: 12/01/16 08:30 Dose: 1 applic Ferrous Sulfate (Feosol Liq) 450 mg PEG DAILY [facility] Last Admin: 12/01/16 08:29 Dose: 450 mg Tigecycline 50 mg/ Sodium (Chloride) 100 mls @ 100 mls/hr IVPB Q12@0400,1600 [facility] Last Admin: 12/01/16 03:14 Dose: 100 mls/hr Sodium Bicarbonate 150 meq/ (Dextrose) 1,150 mls @ 60 mls/hr IV .[id number] [facility] Stop: 12/02/16 05:47 Last Admin: 12/01/16 06:34 Dose: 60 mls/hr Metoclopramide HCl (Reglan) 10 mg PEG HS [facility] Last Admin: 11/30/16 21:08 Dose: 10 mg Metoprolol Tartrate (Lopressor) 25 mg PO Q12 [facility] Last Admin: 12/01/16 08:29 Dose: 25 mg Ondansetron HCl (Zofran Odt) 4 mg PEG Q8 [facility] Last Admin: 11/24/16 16:40 Dose: 4 mg Pantoprazole Sodium (Protonix Susp) 40 mg PEG DAILY [facility] Last Admin: 12/01/16 08:30 Dose: 40 mg Silver Sulfadiazine (Silvadene 1% 50 Gm) 1 applic TOP 0900,2100 [facility] Last Admin: 12/01/16 08:31 Dose: 1 applic Sucralfate (Carafate Oral Susp) 1 gm PEG TID [facility] Last Admin: 12/01/16 08:27 Dose: 1 gm - Labs Labs: 12/01/16 04:20 12/01/16 04:20 PT 12.7 SECONDS (9.6-11.2) H 11/24/16 06:00 INR 1.22 (0.92-1.08) H 11/24/16 06:00 APTT 33.9 SECONDS (23.3-32.5) H D 11/24/16 06:00 Assessment and Plan (1) Respiratory failure with hypercapnia Status: Acute (2) Endotracheally intubated Status: Acute (3) On mechanically assisted ventilation Status: Acute (4) Pneumonia Status: Acute (5) COPD exacerbation Status: Acute
--- NOTE | 2016-12-01 11:24 | PN ---
DATE: 12/01/2016 The patient is seen and evaluated at the bedside. A 71-year-old male, status post cardiac arrest on 11/24, remains unresponsive, on ventilator. History of atrial fibrillation, coronary artery disease, off pressors and sedation. Remains unresponsive to verbal or painful stimuli. PHYSICAL EXAMINATION: VITAL SIGNS: Temperature 97.6, heart rate 111, regular, blood pressure 109/72. Intake and output: 3075, output 2250, positive balance 825. Weight 128 pounds. HEENT: Pupils minimally reactive. Conjunctivae pale. Sclerae white. NECK: Supple. Endotracheal tube in place. No secretions noted. HEART: Rhythm _irregular LUNGS: Breath sounds present bilaterally. Scattered rhonchi. No audible wheezing or bronchial breath sounds. ABDOMEN: Bowel sounds present, soft, PEG in place, feeding in progress. EXTREMITIES: Trace edema. NEUROLOGIC: Remains unresponsive to painful stimuli. Does not move upper and lower extremities. Deep tendon reflexes are 2+ bilaterally, plantar flexor. CURRENT MEDICATIONS: Tylenol 650 PEG q. 4 p.r.n., DuoNeb 3 mL via nebulizer q. 6 hours, aspirin 81 mg daily, Cordarone 200 mg PEG daily, Santyl 1 application topically daily, Proshield Plus skin protectant 1 application topically twice daily, ferrous sulfate 450 mg PEG daily, metoclopramide 10 mg PEG at bedtime, Lopressor 25 mg q. 12, Zofran 4 mg PEG q. 8, Protonix suspension 40 mg PEG daily , Silvadene cream 1% 1 application topically twice daily, sodium bicarbonate drip at 150 mEq in 1150 mL at 60 mL per hour, sucralfate 1 gram PEG 3 times daily, tigecycline 50 mg IV q. 12. LABORATORY DATA: WBC 27.6, hemoglobin 7.8, hematocrit 25.2, platelet count 158. ABG: pH 7.58, pCO2 28, pO2 144 on FiO2 40%. SMA-7: Sodium 140, potassium 4.9, chloride 106, CO2 22, blood urea nitrogen 127, creatinine 2.5, calcium 8.4. Urinalysis negative. Toxicology, thyroperoxidase antibody less than 1. Serology, influenza A and B negative. Sputum culture positive for Klebsiella pneumoniae. Urine culture positive for gram-positive cocci. IMPRESSION: Status post cardiac arrest, anoxic encephalopathy combined with metabolic septic encephalopathy, remains unresponsive to verbal and painful stimuli. EEG pending. Neuro evaluation noted. Anemia of chronic disease, no overt gastrointestinal bleeding noted. Chronic kidney disease with anemia, acute on chronic renal failure secondary to prerenal azotemia secondary to steroid and dehydration. History of chronic obstructive pulmonary disease, remains intubated, not a weanable candidate, continue current vent support, noted reduced ventilatory support by pulmonary, will closely monitor for the tolerance. However, given the poor mental status, remains a poor candidate for weaning as is also at increased risk for aspiration and subsequent pneumonia. Atrial fibrillation with rate controlled. PLAN: To obtain a renal consult for evaluation for possible hemodialysis. Follow up EEG and recommendation by neuro regarding the brain activity. Continue current ventilatory/supportive care as patient's son is not willing to consent for do not resuscitate and for comfort care. Closely monitor hemoglobin and hematocrit. Continue proton pump inhibitor, deep venous thrombosis prophylaxis. Wilfredo De La Cruz MD cc: [phone] TT: 12/01/2016 11:23:42 Confirmation # [id number] Dictation # [id number] en MTDD
--- NOTE | 2016-12-01 12:34 | CP.PCM.CON ---
History of Present Illness - History of Present Illness History of Present Illness: Initial Nephrology Consultation: Assessment: Non-oliguric Acute Kidney Injury likely due to ATN due to sepsis, cardiac arrest Much elevated BUN disproportionate to serum creatinine: likely due to catabolic state, steroids ? pre-renal/cardiorenal and also some contribution by SMITA Anemia, pneumonia, cardiac arrest now with anoxic brain injury, systolic CHF, respi failure diabetes Mellitus, hypertension, COPD, CAD s/p CABG, coronary stent, BPH, A fib Plan No acute need for renal replacement therapy at this time. maintaining urine output, lytes okay, saturating well. While uremic toxins can cause poor mental status, patient's course of cardiac arrest and unresponsivness since then, favors it as the predominant cause. Monitor Input/Output, daily weights and renal function with basic metabolic panel Check urine analysis, urine sodium and creatinine to assess his volume status further. can switch bicarb drip to normal saline considering high pH Dose meds/antibiotics for reduced GFR. Avoid fleets enema/magnesium based laxatives. Avoid nephrotoxins/NSAIDs/ iodinated contrast (unless needed emergently) Glycemic control. maintain hemodynamics stable. overall appears to have poor prognosis. Further work up for as per primary team. d/w ICU attending. Thanks for allowing me to participate in care of your patient. Will follow patient with you. Please call if any Qs Dr Jhony Pate Office: [phone] Chief Complaint; unable to obtain Source of info: chart review HPI: Pt is a 71 y/o M from [facility] with hx of diabetes Mellitus, hypertension, COPD, CAD s/p CABG, coronary stent, BPH, A fib initially admitted on 11/22/16 with shortness of breath and treated for COPD exacerbation and pneumonia had an episode of cardiac arrest on 11/24/16 which required prolonged resuscitation, had anoxic brain injury as per neuro, remains unresponsive and mechanically ventilated. Renal consulted for elevated BUN/Cr and SMITA. He had episode of SMITA in jul 2016 with peak cr 3.3 which later improved to 1.1 mg/dL. No recent iodinated contrast exposure. making urine. ROS: Unable to obtain Physical Examination: General Appearance: Comfortable, in no acute respiratory distress, intubated, unresponsive to commands or stimuli. overall Ill appearing . Vitals reviewed and noted as below Head; Atraumatic, normocephalic ENT: he is orally intubated. Neck; supple no lymphadenopathy, no thyromegaly or bruit Lungs: Normal respiratory rate/effort. Breath sounds bilateral equal and clear anteriorly Heart: Normal rate. s1s2 normal. No rub or gallop. Extremities: no edema. No varicose veins Neurological: Patient is unresponsive to commands or stimuli Skin: Warm and dry. Normal turgor. No rash. Palpitation: Normal elasticity for age Abdomen: Abdomen is soft. Bowel sounds +. There is no guarding/rigidity or organomegaly Psych: unable MSK: no joint tenderness or swelling. Digits and nails normal, no deformity : kidney or bladder not palpable. has kohli Labs/imaging/EKG reviewed. Past medical history, past surgical history, family history, social history, allergy reviewed and noted as below work up; pH 7.55/bicarb 26/pCO2 28 sat 100% UA: 100 pr no blood CXR: mild interstitial prominence Echo: LVEF 30-35% CT: b/l simple cysts, otherwise unremarkable [facility] BNP [facility] Past Patient History - Infectious Disease Hx of Infectious Diseases: None - Tetanus Immunizations Tetanus Immunization: Unknown - Past Medical History & Family History Past Medical History?: Yes - Past Social History Smoking Status: Former Smoker - CARDIAC Hx Atrial Fibrillation: Yes Hx Cardia Arrhythmia: Yes Hx Congestive Heart Failure: Yes Hx Hypercholesterolemia: Yes Hx Hypertension: Yes Hx Peripheral Edema: Yes - PULMONARY Hx Asthma: Yes Hx Bronchitis: Yes Hx Chronic Obstructive Pulmonary Disease (COPD): Yes Hx Emphysema: Yes Hx Pneumonia: Yes - NEUROLOGICAL Hx Neurological Disorder: No - HEENT Hx Cataracts: Yes (right eye) - RENAL Hx Chronic Kidney Disease: No - ENDOCRINE/METABOLIC Hx Hypothyroidism: No - HEMATOLOGICAL/ONCOLOGICAL Hx Anemia: Yes Hx Human Immunodeficiency Virus (HIV): No - INTEGUMENTARY Hx Psoriasis: Yes - MUSCULOSKELETAL/RHEUMATOLOGICAL Hx Arthritis: Yes Hx Rheumatoid Arthritis: No - GASTROINTESTINAL Hx Diverticulitis: Yes - GENITOURINARY/GYNECOLOGICAL Hx Prostate Problems: Yes (BPH) - PSYCHIATRIC Hx Anxiety: Yes - SURGICAL HISTORY Hx Coronary Artery Bypass Graft: Yes (1994) Hx Coronary Stent: Yes (2000) - ANESTHESIA Hx Anesthesia: Yes Hx Anesthesia Reactions: No Hx Malignant Hyperthermia: No Has any member of the family had a problem w/ anesthesia?: No Meds Allergies/Adverse Reactions: Allergies Allergy/AdvReac Type Severity Reaction Status Date / Time gemfibrozil [From Lopid] Allergy RASH Verified 11/22/16 07:55 morphine Allergy SHORTNESS Verified 11/22/16 07:55 OF BREATH - Medications Medications: Current Medications Acetaminophen (Tylenol 650mg/20.3ml Solution Ud) 650 mg PEG Q4 PRN PRN Reason: Pain, moderate (4-7) Last Admin: 11/25/16 11:50 Dose: 650 mg Acetaminophen (Tylenol 650mg/20.3ml Solution Ud) 650 mg PEG Q4 PRN PRN Reason: Fever >100.4 F Last Admin: 11/29/16 00:04 Dose: 650 mg Albuterol Sulfate (Albuterol 0.083% Inhal Mary (2.5 Mg/3 Ml) Ud) 2.5 mg INH RQ4 PRN PRN Reason: Shortness of Breath Last Admin: 11/23/16 03:48 Dose: 2.5 mg Albuterol/Ipratropium (Duoneb 3 Mg/0.5 Mg (3 Ml) Ud) 3 ml INH RQ6 [facility] Last Admin: 12/01/16 07:53 Dose: 3 ml Amiodarone HCl (Cordarone) 200 mg PEG DAILY [facility] Last Admin: 12/01/16 08:27 Dose: 200 mg Aspirin (Aspirin Chewable) 81 mg PEG DAILY [facility] Last Admin: 12/01/16 08:27 Dose: 81 mg Collagenase (Santyl) 1 applic TOP 0900,2100 [facility] Last Admin: 12/01/16 08:30 Dose: 1 applic Dimethicone (Proshield Plus Skin Protectant) 1 applic TOP 0900,2100 [facility] Last Admin: 12/01/16 08:30 Dose: 1 applic Ferrous Sulfate (Feosol Liq) 450 mg PEG DAILY [facility] Last Admin: 12/01/16 08:29 Dose: 450 mg Tigecycline 50 mg/ Sodium (Chloride) 100 mls @ 100 mls/hr IVPB Q12@0400,1600 [facility] Last Admin: 12/01/16 03:14 Dose: 100 mls/hr Sodium Chloride (Sodium Chloride 0.9%) 1,000 mls @ 100 mls/hr IV .Q10H [facility] Stop: 12/02/16 11:10 Metoclopramide HCl (Reglan) 10 mg PEG HS [facility] Last Admin: 11/30/16 21:08 Dose: 10 mg Metoprolol Tartrate (Lopressor) 25 mg PO Q12 [facility] Last Admin: 12/01/16 08:29 Dose: 25 mg Ondansetron HCl (Zofran Odt) 4 mg PEG Q8 [facility] Last Admin: 11/24/16 16:40 Dose: 4 mg Pantoprazole Sodium (Protonix Susp) 40 mg PEG DAILY [facility] Last Admin: 12/01/16 08:30 Dose: 40 mg Silver Sulfadiazine (Silvadene 1% 50 Gm) 1 applic TOP 0900,2100 [facility] Last Admin: 12/01/16 08:31 Dose: 1 applic Sucralfate (Carafate Oral Susp) 1 gm PEG TID [facility] Last Admin: 12/01/16 08:27 Dose: 1 gm Results - Vital Signs Recent Vital Signs: Last Vital Signs Temp 97.6 F 12/01/16 08:00 Pulse 95 H 12/01/16 10:00 Resp 20 12/01/16 10:00 BP 132/73 12/01/16 10:00 Pulse Ox 100 12/01/16 10:00 - Labs Result Diagrams: 12/01/16 04:20 12/01/16 04:20 Labs: Laboratory Results - last 24 hr 11/30/16 11/30/16 12/01/16 15:57 21:23 04:20 WBC 27.6 H RBC 2.82 L Hgb 7.8 L Hct 25.2 L MCV 89.4 MCH 27.5 MCHC 30.7 L RDW 16.8 H Plt Count 158 pCO2 pO2 HCO3 ABG pH ABG Total CO2 ABG O2 Saturation ABG O2 Content ABG Base Excess ABG Hemoglobin ABG Carboxyhemoglobin POC ABG HHb (Measured) ABG Methemoglobin ABG O2 Capacity Emmanuel Test A-a O2 Difference Hgb O2 Saturation Vent Mode Mechanical Rate FiO2 Tidal Volume PEEP Sodium Potassium Chloride Carbon Dioxide Anion Gap BUN Creatinine Est GFR ( Amer) Est GFR (Non-Af Amer) POC Glucose (mg/dL) 157 H 178 H Random Glucose Calcium 12/01/16 12/01/16 12/01/16 04:20 04:38 05:47 WBC RBC Hgb Hct MCV MCH MCHC RDW Plt Count pCO2 29 L pO2 470 H HCO3 27.0 ABG pH 7.54 H ABG Total CO2 25.7 ABG O2 Saturation 99.7 H ABG O2 Content 15.9 ABG Base Excess 2.7 ABG Hemoglobin 10.7 L ABG Carboxyhemoglobin 0.8 POC ABG HHb (Measured) 0.3 ABG Methemoglobin 1.7 ABG O2 Capacity 15.9 L Emmanuel Test Yes A-a O2 Difference 207.0 Hgb O2 Saturation 97.2 Vent Mode Prvc ac Mechanical Rate 12 FiO2 100.0 Tidal Volume 450 PEEP 5 Sodium 140 Potassium 4.9 Chloride 106 Carbon Dioxide 22 Anion Gap 17 BUN 127 H* Creatinine 2.5 H Est GFR ( Amer) 31 Est GFR (Non-Af Amer) 26 POC Glucose (mg/dL) 152 H Random Glucose 137 H Calcium 8.4 12/01/16 12/01/16 06:10 11:01 WBC RBC Hgb Hct MCV MCH MCHC RDW Plt Count pCO2 28 L pO2 144 H HCO3 26.8 ABG pH 7.55 H ABG Total CO2 25.4 ABG O2 Saturation 100.5 H ABG O2 Content 11.8 L ABG Base Excess 2.3 ABG Hemoglobin 8.4 L ABG Carboxyhemoglobin 1.3 POC ABG HHb (Measured) -0.5 L ABG Methemoglobin 1.6 ABG O2 Capacity 11.7 L Emmanuel Test Yes A-a O2 Difference 106.0 Hgb O2 Saturation 97.6 Vent Mode Prvc ac Mechanical Rate 12 FiO2 40.0 Tidal Volume 450 PEEP 5 Sodium Potassium Chloride Carbon Dioxide Anion Gap BUN Creatinine Est GFR ( Amer) Est GFR (Non-Af Amer) POC Glucose (mg/dL) 166 H Random Glucose Calcium
[2016-12-01] MEDS: Sodium Chloride 0.9% 1,000 ML IV SCH ×2 (12:38→23:50)
--- NOTE | 2016-12-01 14:05 | CP.PCM.PN ---
Subjective - Date & Time of Evaluation Date of Evaluation: 12/01/16 Time of Evaluation: 11:30 - Subjective Subjective: UNRESPONSIVE Objective - Vital Signs/Intake and Output Vital Signs (last 24 hours): Temp Pulse Resp BP Pulse Ox 97.6 F 99 H 19 116/79 100 12/01/16 12:00 12/01/16 12:00 12/01/16 12:00 12/01/16 12:00 12/01/16 12:00 Intake and Output: 12/01/16 12/01/16 06:59 18:59 Intake Total 1660 715 Output Total 900 650 Balance 760 65 - Medications Medications: Current Medications Acetaminophen (Tylenol 650mg/20.3ml Solution Ud) 650 mg PEG Q4 PRN PRN Reason: Pain, moderate (4-7) Last Admin: 11/25/16 11:50 Dose: 650 mg Acetaminophen (Tylenol 650mg/20.3ml Solution Ud) 650 mg PEG Q4 PRN PRN Reason: Fever >100.4 F Last Admin: 11/29/16 00:04 Dose: 650 mg Albuterol Sulfate (Albuterol 0.083% Inhal Mary (2.5 Mg/3 Ml) Ud) 2.5 mg INH RQ4 PRN PRN Reason: Shortness of Breath Last Admin: 11/23/16 03:48 Dose: 2.5 mg Albuterol/Ipratropium (Duoneb 3 Mg/0.5 Mg (3 Ml) Ud) 3 ml INH RQ6 [facility] Last Admin: 12/01/16 13:22 Dose: 3 ml Amiodarone HCl (Cordarone) 200 mg PEG DAILY [facility] Last Admin: 12/01/16 08:27 Dose: 200 mg Aspirin (Aspirin Chewable) 81 mg PEG DAILY [facility] Last Admin: 12/01/16 08:27 Dose: 81 mg Collagenase (Santyl) 1 applic TOP 0900,2100 [facility] Last Admin: 12/01/16 08:30 Dose: 1 applic Dimethicone (Proshield Plus Skin Protectant) 1 applic TOP 0900,2100 [facility] Last Admin: 12/01/16 08:30 Dose: 1 applic Ferrous Sulfate (Feosol Liq) 450 mg PEG DAILY [facility] Last Admin: 12/01/16 08:29 Dose: 450 mg Tigecycline 50 mg/ Sodium (Chloride) 100 mls @ 100 mls/hr IVPB Q12@0400,1600 [facility] Last Admin: 12/01/16 03:14 Dose: 100 mls/hr Sodium Chloride (Sodium Chloride 0.9%) 1,000 mls @ 100 mls/hr IV .Q10H [facility] Stop: 12/02/16 11:10 Last Admin: 12/01/16 12:38 Dose: 100 mls/hr Metoclopramide HCl (Reglan) 10 mg PEG HS [facility] Last Admin: 11/30/16 21:08 Dose: 10 mg Metoprolol Tartrate (Lopressor) 25 mg PO Q12 [facility] Last Admin: 12/01/16 08:29 Dose: 25 mg Ondansetron HCl (Zofran Odt) 4 mg PEG Q8 [facility] Last Admin: 11/24/16 16:40 Dose: 4 mg Pantoprazole Sodium (Protonix Susp) 40 mg PEG DAILY [facility] Last Admin: 12/01/16 08:30 Dose: 40 mg Silver Sulfadiazine (Silvadene 1% 50 Gm) 1 applic TOP 0900,2100 [facility] Last Admin: 12/01/16 08:31 Dose: 1 applic Sucralfate (Carafate Oral Susp) 1 gm PEG TID [facility] Last Admin: 12/01/16 12:38 Dose: 1 gm - Labs Labs: 12/01/16 04:20 12/01/16 04:20 PT 12.7 SECONDS (9.6-11.2) H 11/24/16 06:00 INR 1.22 (0.92-1.08) H 11/24/16 06:00 APTT 33.9 SECONDS (23.3-32.5) H D 11/24/16 06:00 - Respiratory Exam Respiratory Exam: Rhonchi - Cardiovascular Exam Cardiovascular Exam: Irregular Rhythm, +S1, +S2 - Additional Findings Additional findings: [employer] ATRIAL FIBRILLATION LABS NOTED NEPHROLOGY CONSULT REVIEWED Assessment and Plan - Assessment and Plan (Free Text) Assessment: PNEUMONIA COPD WIDTH RESPIRATORY FAILURE CAD ATRIAL FIBRILLATION RENAL FAILURE PROGNOSIS VERY GUARDED Plan: CONTINUE MV, IV FLUIDS, IV ANTIBIOTICS, AMIODARONE, METOPROLOL, ASPIRIN
[2016-12-01 14:31] LABS: RBC URINE 4 /hpf (0-3); URINE BACTERIA RARE (<OCC); URINE BILIRUBIN NEGATIVE (NEGATIVE); URINE BLOOD SMALL (NEGATIVE); URINE COLOR YELLOW (YELLOW); URINE GLUCOSE (UA) NEG (Normal); URINE KETONE NEGATIVE (NEGATIVE); URINE LEUKOCYTE ESTERASE NEG Leu/uL (Negative); URINE PROTEIN 30 mg/dL (NEGATIVE); URINE UROBILINOGEN 0.2-1.0 mg/dL (0.2-1.0); WBC URINE 1 /hpf (0-5)
[2016-12-01 14:47] LABS: CREATININE, RANDOM URINE 24.3 mg/dL
--- NOTE | 2016-12-01 15:06 | RAD ---
HISTORY: Re-evaluation endotracheal tube. Portable study 05:05. COMPARISON: Multiple serial examinations preceding the most recent study: November 30, 2016. FINDINGS: LUNGS: No active pulmonary disease. PLEURA: No significant pleural effusion identified, no pneumothorax apparent. CARDIOVASCULAR: No radiographic findings to suggest acute or significant cardiovascular disease. Venous access catheter in stable, satisfactory position. OSSEOUS STRUCTURES: No significant abnormalities. VISUALIZED UPPER ABDOMEN: Normal. OTHER FINDINGS: Stable position of endotracheal tube. The tip within 3 cm of the jung. IMPRESSION: No significant interval change compared to the prior examination(s).
--- NOTE | 2016-12-01 15:09 | PN ---
DATE: 12/01/2016 In ICU, room 423 This is a 71-year-old male with recent recurrent aspiration pneumonia and underlying chronic obstruct bart lung disease, previously on IV steroid therapy and now taken off steroids as noted. His glycemic levels are fluctuating, but improved, and the latest glucose levels have ranged from 152 -166 mg/dL. His latest chemistries include a BUN of 127, sodium 140, potassium 4.9, chloride 106, CO 2 22, glucose 137 and creatinine 2.5. So at this time, we will continue the same present medical management as ordered and we will obtain s erial chemistries and supplement accordingly as needed. We will follow. Anabella Sebastian MD cc: [id number] TT: 12/01/2016 15:08:37 Confirmation # [id number] Dictation # [id number] en
--- NOTE | 2016-12-01 20:22 | CP.PCM.PN ---
Subjective - Date & Time of Evaluation Date of Evaluation: 12/01/16 Time of Evaluation: 22:22 - Subjective Subjective: Above noted D/W family Objective - Vital Signs/Intake and Output Vital Signs (last 24 hours): Temp Pulse Resp BP Pulse Ox 98.7 F 102 H 20 120/70 100 12/01/16 19:26 12/01/16 20:14 12/01/16 19:26 12/01/16 20:14 12/01/16 19:26 Intake and Output: 12/01/16 12/02/16 18:59 06:59 Intake Total 1685 190 Output Total 1125 110 Balance 560 80 - Medications Medications: Current Medications Acetaminophen (Tylenol 650mg/20.3ml Solution Ud) 650 mg PEG Q4 PRN PRN Reason: Pain, moderate (4-7) Last Admin: 11/25/16 11:50 Dose: 650 mg Acetaminophen (Tylenol 650mg/20.3ml Solution Ud) 650 mg PEG Q4 PRN PRN Reason: Fever >100.4 F Last Admin: 11/29/16 00:04 Dose: 650 mg Albuterol Sulfate (Albuterol 0.083% Inhal Mary (2.5 Mg/3 Ml) Ud) 2.5 mg INH RQ4 PRN PRN Reason: Shortness of Breath Last Admin: 11/23/16 03:48 Dose: 2.5 mg Albuterol/Ipratropium (Duoneb 3 Mg/0.5 Mg (3 Ml) Ud) 3 ml INH RQ6 [facility] Last Admin: 12/01/16 19:19 Dose: 3 ml Amiodarone HCl (Cordarone) 200 mg PEG DAILY [facility] Last Admin: 12/01/16 08:27 Dose: 200 mg Aspirin (Aspirin Chewable) 81 mg PEG DAILY [facility] Last Admin: 12/01/16 08:27 Dose: 81 mg Collagenase (Santyl) 1 applic TOP 0900,2100 [facility] Last Admin: 12/01/16 20:15 Dose: 1 applic Dimethicone (Proshield Plus Skin Protectant) 1 applic TOP 0900,2100 [facility] Last Admin: 12/01/16 20:15 Dose: 1 applic Ferrous Sulfate (Feosol Liq) 450 mg PEG DAILY [facility] Last Admin: 12/01/16 08:29 Dose: 450 mg Tigecycline 50 mg/ Sodium (Chloride) 100 mls @ 100 mls/hr IVPB Q12@0400,1600 [facility] Last Admin: 12/01/16 16:05 Dose: 100 mls/hr Sodium Chloride (Sodium Chloride 0.9%) 1,000 mls @ 100 mls/hr IV .Q10H [facility] Stop: 12/02/16 11:10 Last Admin: 12/01/16 12:38 Dose: 100 mls/hr Metoclopramide HCl (Reglan) 10 mg PEG HS [facility] Last Admin: 11/30/16 21:08 Dose: 10 mg Metoprolol Tartrate (Lopressor) 25 mg PO Q12 [facility] Last Admin: 12/01/16 20:14 Dose: 25 mg Ondansetron HCl (Zofran Odt) 4 mg PEG Q8 [facility] Last Admin: 11/24/16 16:40 Dose: 4 mg Pantoprazole Sodium (Protonix Susp) 40 mg PEG DAILY [facility] Last Admin: 12/01/16 08:30 Dose: 40 mg Silver Sulfadiazine (Silvadene 1% 50 Gm) 1 applic TOP 0900,2100 [facility] Last Admin: 12/01/16 20:15 Dose: 1 applic Sucralfate (Carafate Oral Susp) 1 gm PEG TID [facility] Last Admin: 12/01/16 16:04 Dose: 1 gm - Labs Labs: 12/01/16 04:20 12/01/16 04:20 PT 12.7 SECONDS (9.6-11.2) H 11/24/16 06:00 INR 1.22 (0.92-1.08) H 11/24/16 06:00 APTT 33.9 SECONDS (23.3-32.5) H D 11/24/16 06:00 - Respiratory Exam Respiratory Exam: NORMAL BREATHING PATTERN - Cardiovascular Exam Cardiovascular Exam: REGULAR RHYTHM - GI/Abdominal Exam GI & Abdominal Exam: Normal Bowel Sounds Assessment and Plan - Assessment and Plan (Free Text) Assessment: Acute Respiratory Failure Asystole Anoxic encephalopathy Intubated Ventillatory support Aspiration?? HX COPD Klebsiella Pneumonia MDR ABX IVF Steroids Pulmonary ID S/P Asystole 2 to Pulmonary dx (S/P V-fib/ V-tach 2 to pulmonary dx) A-fib CAD S/P CABG Amiodorone Cardiology Swallowing?? aspiration?? PEG Jevity and oral feedings Hx s/p + C-diff + Ag -toxin Hx Dec oral intake improved on Megace SMITA/ CKD 2 to Sepsis acute ischemia ATN HX Hyperkalemia and hypokalemia etiol ?? Adrenal insufficiency?? Hx of Orthostatic Hypotension at NH ACTH Cortisol level ?? Eamon d/c Endo and Nephrology Consult Sick Euthyroid syndrome Endo Anemia etiol? Transfusion Chronic chest wall pain Pain meds
[2016-12-02] MEDS: Albuterol-Ipratrop 3 mg / 0.5 (3 ml) UD INH SCH ×4 (01:00→19:07)
[2016-12-02 05:12] LABS: ABG ALLEN TEST YES; ARTERIAL BLOOD GAS HCO3 25.3 mmol/L (21-28); ARTERIAL BLOOD GAS MODE CPAP+PS; ARTERIAL BLOOD GAS O2 CAPACITY 10.8 mL/dL (16-24); ARTERIAL BLOOD GAS O2 CONTENT 10.7 ML/dL (15-23); ARTERIAL BLOOD GAS PH 7.47 (7.35-7.45); ARTERIAL BLOOD GAS PO2 121 mm/Hg (80-100); ATERIAL BLOOD GAS PEEP 5; HHB 0.8 % (0.0-5.0); METHEMOGLOBIN 2.2 % (0.0-3.0)
[2016-12-02 05:14] LABS: HEMATOCRIT 23.7 % (35.0-51.0); MEAN CELL VOLUME 89.1 fl (80.0-94.0); MEAN CORPUSCULAR HEMOGLOBIN 27.5 pg (27.0-31.0); MEAN CORPUSCULAR HGB CONC 30.9 g/dL (33.0-37.0); RED CELL DISTRIBUTION WIDTH 16.6 % (11.5-14.5); WHITE BLOOD COUNT 26.9 K/uL (4.8-10.8)
[2016-12-02 05:17] LABS: CALCIUM 8.4 mg/dL (8.4-10.2)
[2016-12-02] MEDS: Santyl Collagenase OINTMENT TOP SCH ×2 (08:17→22:30)
[2016-12-02] MEDS: Proshield Plus GEL TOP SCH ×2 (08:18→22:29)
[2016-12-02] MEDS: Ferrous Sulfate 300 mg/5 mL Liq UD PEG SCH (08:20)
[2016-12-02] MEDS: Sucralfate 1 gm/10 ml Oral Susp UD PEG SCH ×3 (08:20→16:16)
[2016-12-02] MEDS: Pantoprazole 40 mg Susp UD PEG SCH (08:20)
[2016-12-02] MEDS: Silver Sulfadiazine 1% CREAM (50 gm) TOP SCH ×2 (08:23→22:30)
--- NOTE | 2016-12-02 08:37 | CP.PCM.PN ---
Subjective - Date & Time of Evaluation Date of Evaluation: 12/02/16 Time of Evaluation: 08:33 - Subjective Subjective: Tolerated CPAP/PS ventilation without difficulty. Clinically remains the same. Unresponsive. Minimal secretions suctioned from ETT, clear/mucoid. CXR today shows no areas of consolidation, but right CP angle is blunted and right hemidiaphragm is indisctinct. Seen by renal yesterday, no plan presently for dialysis. Having loose blackish BM's as per nursing notes. Labs reviewed with BUN about the same. Leukocytosis minimally reduced. Hemoglobin 7.3GM today. No dullness to chest percussion. No subcutaneous emphysema. Neck is supple and trachea midline. + dependant edema w/o cyanosis or jaundice seen. Sonorous rhonchi are heard in the RLL area w/o wheezes or bronchial breath sounds heard. Rare dependant medium rales posteriorly in LL's. Will trial on T-bar 40% this morning. Time is now for discussion regarding tracheostomy and further treatment plans. He remains on Tygacil presently. Will request procalcitonin level. Objective - Vital Signs/Intake and Output Vital Signs (last 24 hours): Temp Pulse Resp BP Pulse Ox 98.5 F 104 H 25 H 140/85 100 12/02/16 08:00 12/02/16 08:19 12/02/16 08:00 12/02/16 08:19 12/02/16 08:00 Intake and Output: 12/01/16 12/02/16 23:59 11:59 Intake Total 1900 1605 Output Total 960 800 Balance 940 805 - Medications Medications: Current Medications Acetaminophen (Tylenol 650mg/20.3ml Solution Ud) 650 mg PEG Q4 PRN PRN Reason: Pain, moderate (4-7) Last Admin: 11/25/16 11:50 Dose: 650 mg Acetaminophen (Tylenol 650mg/20.3ml Solution Ud) 650 mg PEG Q4 PRN PRN Reason: Fever >100.4 F Last Admin: 11/29/16 00:04 Dose: 650 mg Albuterol Sulfate (Albuterol 0.083% Inhal Mary (2.5 Mg/3 Ml) Ud) 2.5 mg INH RQ4 PRN PRN Reason: Shortness of Breath Last Admin: 11/23/16 03:48 Dose: 2.5 mg Albuterol/Ipratropium (Duoneb 3 Mg/0.5 Mg (3 Ml) Ud) 3 ml INH RQ6 [facility] Last Admin: 12/02/16 07:42 Dose: 3 ml Amiodarone HCl (Cordarone) 200 mg PEG DAILY [facility] Last Admin: 12/02/16 08:18 Dose: 200 mg Aspirin (Aspirin Chewable) 81 mg PEG DAILY [facility] Last Admin: 12/02/16 08:19 Dose: 81 mg Collagenase (Santyl) 1 applic TOP 0900,2100 [facility] Last Admin: 12/02/16 08:17 Dose: 1 applic Dimethicone (Proshield Plus Skin Protectant) 1 applic TOP 0900,2100 [facility] Last Admin: 12/02/16 08:18 Dose: 1 applic Ferrous Sulfate (Feosol Liq) 450 mg PEG DAILY [facility] Last Admin: 12/02/16 08:20 Dose: 450 mg Tigecycline 50 mg/ Sodium (Chloride) 100 mls @ 100 mls/hr IVPB Q12@0400,1600 [facility] Last Admin: 12/02/16 03:48 Dose: 100 mls/hr Sodium Chloride (Sodium Chloride 0.9%) 1,000 mls @ 100 mls/hr IV .Q10H [facility] Stop: 12/02/16 11:10 Last Admin: 12/01/16 23:50 Dose: 100 mls/hr Metoclopramide HCl (Reglan) 10 mg PEG HS [facility] Last Admin: 12/01/16 21:31 Dose: 10 mg Metoprolol Tartrate (Lopressor) 25 mg PO Q12 [facility] Last Admin: 12/02/16 08:19 Dose: 25 mg Ondansetron HCl (Zofran Odt) 4 mg PEG Q8 [facility] Last Admin: 11/24/16 16:40 Dose: 4 mg Pantoprazole Sodium (Protonix Susp) 40 mg PEG DAILY [facility] Last Admin: 12/02/16 08:20 Dose: 40 mg Silver Sulfadiazine (Silvadene 1% 50 Gm) 1 applic TOP 0900,2100 [facility] Last Admin: 12/02/16 08:23 Dose: 1 applic Sucralfate (Carafate Oral Susp) 1 gm PEG TID [facility] Last Admin: 12/02/16 08:20 Dose: 1 gm - Labs Labs: 12/02/16 04:55 12/02/16 04:55 PT 12.7 SECONDS (9.6-11.2) H 11/24/16 06:00 INR 1.22 (0.92-1.08) H 11/24/16 06:00 APTT 33.9 SECONDS (23.3-32.5) H D 11/24/16 06:00 Assessment and Plan (1) Respiratory failure with hypercapnia Status: Resolved (2) Endotracheally intubated Status: Acute (3) On mechanically assisted ventilation Status: Acute (4) Pneumonia Status: Resolved (5) COPD exacerbation Status: Resolved
--- NOTE | 2016-12-02 10:21 | CP.PCM.PN ---
Subjective - Date & Time of Evaluation Date of Evaluation: 12/02/16 Time of Evaluation: 09:15 - Subjective Subjective: UNRESPONSIVE Objective - Vital Signs/Intake and Output Vital Signs (last 24 hours): Temp Pulse Resp BP Pulse Ox 98.5 F 90 26 H 143/76 100 12/02/16 08:00 12/02/16 10:00 12/02/16 10:00 12/02/16 10:00 12/02/16 10:00 Intake and Output: 12/02/16 12/02/16 06:59 18:59 Intake Total 2140 335 Output Total 1010 Balance 1130 335 - Medications Medications: Current Medications Acetaminophen (Tylenol 650mg/20.3ml Solution Ud) 650 mg PEG Q4 PRN PRN Reason: Pain, moderate (4-7) Last Admin: 11/25/16 11:50 Dose: 650 mg Acetaminophen (Tylenol 650mg/20.3ml Solution Ud) 650 mg PEG Q4 PRN PRN Reason: Fever >100.4 F Last Admin: 11/29/16 00:04 Dose: 650 mg Albuterol Sulfate (Albuterol 0.083% Inhal Mary (2.5 Mg/3 Ml) Ud) 2.5 mg INH RQ4 PRN PRN Reason: Shortness of Breath Last Admin: 11/23/16 03:48 Dose: 2.5 mg Albuterol/Ipratropium (Duoneb 3 Mg/0.5 Mg (3 Ml) Ud) 3 ml INH RQ6 [facility] Last Admin: 12/02/16 07:42 Dose: 3 ml Amiodarone HCl (Cordarone) 200 mg PEG DAILY [facility] Last Admin: 12/02/16 08:18 Dose: 200 mg Aspirin (Aspirin Chewable) 81 mg PEG DAILY [facility] Last Admin: 12/02/16 08:19 Dose: 81 mg Collagenase (Santyl) 1 applic TOP 0900,2100 [facility] Last Admin: 12/02/16 08:17 Dose: 1 applic Dimethicone (Proshield Plus Skin Protectant) 1 applic TOP 0900,2100 [facility] Last Admin: 12/02/16 08:18 Dose: 1 applic Ferrous Sulfate (Feosol Liq) 450 mg PEG DAILY [facility] Last Admin: 12/02/16 08:20 Dose: 450 mg Tigecycline 50 mg/ Sodium (Chloride) 100 mls @ 100 mls/hr IVPB Q12@0400,1600 [facility] Last Admin: 12/02/16 03:48 Dose: 100 mls/hr Metoclopramide HCl (Reglan) 10 mg PEG HS [facility] Last Admin: 12/01/16 21:31 Dose: 10 mg Metoprolol Tartrate (Lopressor) 25 mg PO Q12 [facility] Last Admin: 12/02/16 08:19 Dose: 25 mg Ondansetron HCl (Zofran Odt) 4 mg PEG Q8 [facility] Last Admin: 11/24/16 16:40 Dose: 4 mg Pantoprazole Sodium (Protonix Susp) 40 mg PEG DAILY [facility] Last Admin: 12/02/16 08:20 Dose: 40 mg Silver Sulfadiazine (Silvadene 1% 50 Gm) 1 applic TOP 0900,2100 [facility] Last Admin: 12/02/16 08:23 Dose: 1 applic Sucralfate (Carafate Oral Susp) 1 gm PEG TID [facility] Last Admin: 12/02/16 08:20 Dose: 1 gm - Labs Labs: 12/02/16 04:55 12/02/16 04:55 PT 12.7 SECONDS (9.6-11.2) H 11/24/16 06:00 INR 1.22 (0.92-1.08) H 11/24/16 06:00 APTT 33.9 SECONDS (23.3-32.5) H D 11/24/16 06:00 - Respiratory Exam Respiratory Exam: Rales, Rhonchi - Cardiovascular Exam Cardiovascular Exam: Irregular Rhythm, +S1, +S2 - Additional Findings 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
--- NOTE | 2016-12-02 12:16 | CP.PCM.PN ---
Subjective - Date & Time of Evaluation Date of Evaluation: 12/02/16 Time of Evaluation: 07:00 - Subjective Subjective: events noted cxr clear having lbm d/c tigecyl start iv flagyl/ po vanco sent stool for c diff Objective - Vital Signs/Intake and Output Vital Signs (last 24 hours): Temp Pulse Resp BP Pulse Ox 98.5 F 92 H 24 137/79 100 12/02/16 08:00 12/02/16 11:00 12/02/16 11:00 12/02/16 11:00 12/02/16 11:00 Intake and Output: 12/02/16 12/02/16 06:59 18:59 Intake Total 2140 335 Output Total 1010 Balance 1130 335 - Medications Medications: Current Medications Acetaminophen (Tylenol 650mg/20.3ml Solution Ud) 650 mg PEG Q4 PRN PRN Reason: Pain, moderate (4-7) Last Admin: 11/25/16 11:50 Dose: 650 mg Acetaminophen (Tylenol 650mg/20.3ml Solution Ud) 650 mg PEG Q4 PRN PRN Reason: Fever >100.4 F Last Admin: 11/29/16 00:04 Dose: 650 mg Albuterol Sulfate (Albuterol 0.083% Inhal Mary (2.5 Mg/3 Ml) Ud) 2.5 mg INH RQ4 PRN PRN Reason: Shortness of Breath Last Admin: 11/23/16 03:48 Dose: 2.5 mg Albuterol/Ipratropium (Duoneb 3 Mg/0.5 Mg (3 Ml) Ud) 3 ml INH RQ6 [facility] Last Admin: 12/02/16 07:42 Dose: 3 ml Amiodarone HCl (Cordarone) 200 mg PEG DAILY [facility] Last Admin: 12/02/16 08:18 Dose: 200 mg Collagenase (Santyl) 1 applic TOP 0900,2100 [facility] Last Admin: 12/02/16 08:17 Dose: 1 applic Dimethicone (Proshield Plus Skin Protectant) 1 applic TOP 0900,2100 [facility] Last Admin: 12/02/16 08:18 Dose: 1 applic Ferrous Sulfate (Feosol Liq) 450 mg PEG DAILY [facility] Last Admin: 12/02/16 08:20 Dose: 450 mg Tigecycline 50 mg/ Sodium (Chloride) 100 mls @ 100 mls/hr IVPB Q12@0400,1600 [facility] Last Admin: 12/02/16 03:48 Dose: 100 mls/hr Metronidazole (Flagyl 500mg/100ml Ns) 100 mls @ 100 mls/hr IVPB Q8 [facility] Metoclopramide HCl (Reglan) 10 mg PEG HS [facility] Last Admin: 12/01/16 21:31 Dose: 10 mg Metoprolol Tartrate (Lopressor) 25 mg PO Q12 [facility] Last Admin: 12/02/16 08:19 Dose: 25 mg Ondansetron HCl (Zofran Odt) 4 mg PEG Q8 [facility] Last Admin: 11/24/16 16:40 Dose: 4 mg Pantoprazole Sodium (Protonix Susp) 40 mg PEG DAILY [facility] Last Admin: 12/02/16 08:20 Dose: 40 mg Silver Sulfadiazine (Silvadene 1% 50 Gm) 1 applic TOP 0900,2100 [facility] Last Admin: 12/02/16 08:23 Dose: 1 applic Sucralfate (Carafate Oral Susp) 1 gm PEG TID [facility] Last Admin: 12/02/16 12:14 Dose: 1 gm - Labs Labs: 12/02/16 04:55 12/02/16 04:55 PT 12.7 SECONDS (9.6-11.2) H 11/24/16 06:00 INR 1.22 (0.92-1.08) H 11/24/16 06:00 APTT 33.9 SECONDS (23.3-32.5) H D 11/24/16 06:00 Assessment and Plan (1) COPD (chronic obstructive pulmonary disease) with acute bronchitis Status: Acute (2) Atrial fibrillation Status: Acute (3) CHF (congestive heart failure) Status: Acute (4) Dehydration Status: Acute (5) Moderate COPD (chronic obstructive pulmonary disease) Status: Acute (6) PAD (peripheral artery disease) Status: Acute (7) Pneumonia Status: Resolved (8) COPD (chronic obstructive pulmonary disease) Status: Chronic (9) COPD exacerbation Status: Resolved
--- NOTE | 2016-12-02 13:15 | CP.PCM.PN ---
Subjective - Date & Time of Evaluation Date of Evaluation: 12/02/16 Time of Evaluation: 13:14 - Subjective Subjective: no events overnight UOP steady Objective - Vital Signs/Intake and Output Vital Signs (last 24 hours): Temp Pulse Resp BP Pulse Ox 98.0 F 92 H 21 137/78 100 12/02/16 12:00 12/02/16 12:00 12/02/16 12:00 12/02/16 12:00 12/02/16 12:00 Intake and Output: 12/02/16 12/02/16 06:59 18:59 Intake Total 2140 335 Output Total 1010 Balance 1130 335 - Medications Medications: Current Medications Acetaminophen (Tylenol 650mg/20.3ml Solution Ud) 650 mg PEG Q4 PRN PRN Reason: Pain, moderate (4-7) Last Admin: 11/25/16 11:50 Dose: 650 mg Acetaminophen (Tylenol 650mg/20.3ml Solution Ud) 650 mg PEG Q4 PRN PRN Reason: Fever >100.4 F Last Admin: 11/29/16 00:04 Dose: 650 mg Albuterol Sulfate (Albuterol 0.083% Inhal Mary (2.5 Mg/3 Ml) Ud) 2.5 mg INH RQ4 PRN PRN Reason: Shortness of Breath Last Admin: 11/23/16 03:48 Dose: 2.5 mg Albuterol/Ipratropium (Duoneb 3 Mg/0.5 Mg (3 Ml) Ud) 3 ml INH RQ6 [facility] Last Admin: 12/02/16 07:42 Dose: 3 ml Amiodarone HCl (Cordarone) 200 mg PEG DAILY [facility] Last Admin: 12/02/16 08:18 Dose: 200 mg Collagenase (Santyl) 1 applic TOP 0900,2100 [facility] Last Admin: 12/02/16 08:17 Dose: 1 applic Dimethicone (Proshield Plus Skin Protectant) 1 applic TOP 0900,2100 [facility] Last Admin: 12/02/16 08:18 Dose: 1 applic Ferrous Sulfate (Feosol Liq) 450 mg PEG DAILY [facility] Last Admin: 12/02/16 08:20 Dose: 450 mg Metronidazole (Flagyl 500mg/100ml Ns) 100 mls @ 100 mls/hr IVPB Q8 [facility] Metoclopramide HCl (Reglan) 10 mg PEG HS [facility] Last Admin: 12/01/16 21:31 Dose: 10 mg Metoprolol Tartrate (Lopressor) 25 mg PO Q12 [facility] Last Admin: 12/02/16 08:19 Dose: 25 mg Ondansetron HCl (Zofran Odt) 4 mg PEG Q8 [facility] Last Admin: 11/24/16 16:40 Dose: 4 mg Pantoprazole Sodium (Protonix Susp) 40 mg PEG DAILY [facility] Last Admin: 12/02/16 08:20 Dose: 40 mg Silver Sulfadiazine (Silvadene 1% 50 Gm) 1 applic TOP 0900,2100 [facility] Last Admin: 12/02/16 08:23 Dose: 1 applic Sucralfate (Carafate Oral Susp) 1 gm PEG TID [facility] Last Admin: 12/02/16 12:14 Dose: 1 gm Vancomycin HCl (Vancocin (Oral/Rectal Use)) 125 mg PO Q8 [facility] - Labs Labs: 12/02/16 04:55 12/02/16 04:55 PT 12.7 SECONDS (9.6-11.2) H 11/24/16 06:00 INR 1.22 (0.92-1.08) H 11/24/16 06:00 APTT 33.9 SECONDS (23.3-32.5) H D 11/24/16 06:00 - Constitutional Appears: No Acute Distress, Older Than Stated Age, Other (intubated ) - Eye Exam Eye Exam: Normal appearance - ENT Exam ENT Exam: Mucous Membranes Moist - Respiratory Exam Respiratory Exam: NORMAL BREATHING PATTERN - Cardiovascular Exam Cardiovascular Exam: +S1, +S2 - GI/Abdominal Exam GI & Abdominal Exam: Soft Additional comments: peg tube + - Neurological Exam Additional comments: AO times 0 - Skin Skin Exam: Dry Assessment and Plan - Assessment and Plan (Free Text) Plan: SMITA/cad s/p cardiac arrest/afib/anemia/pnemonia/anoxix brain injury non oliguric smita sec to atn, BUN remains elevated lytes reviewed anemia: transfuse prn per icu team monitor UOP family wants dialysis if need be while current neurological status can ángel sec to anoxic brain injury, uremia can always play a role. however since he is making urine, monitor for now and no hd d/w icu attending .
--- NOTE | 2016-12-02 13:27 | RAD ---
HISTORY: Reevaluate /ETT placement . Portable study 04:35. COMPARISON: Multiple serial examinations preceding the most recent study: December 01, 2016. FINDINGS: LUNGS: No significant interval change compared to the prior examination(s). PLEURA: No significant pleural effusion identified, no pneumothorax apparent. CARDIOVASCULAR: No radiographic findings to suggest acute or significant cardiovascular disease.Venous access catheter in stable, satisfactory position. OSSEOUS STRUCTURES: No significant abnormalities. VISUALIZED UPPER ABDOMEN: Normal. OTHER FINDINGS: Stable position of endotracheal tube. IMPRESSION: No significant interval change compared to the prior examination(s).
[2016-12-02] MEDS: metroNIDAZOLE 500mg/100ml NS 100 ML IVPB SCH ×2 (13:39→16:17)
--- NOTE | 2016-12-02 15:45 | PN ---
DATE: 12/02/2016 LOCATION: ICU, room 423. SUBJECTIVE: This is a 71-year-old male with recent acute exacerbation of COPD and is now being follo wed closely for metabolic management. He was started also on IV steroid therapy with expected transi ent hyperglycemic accelerations, but that are improving at this time. LABORATORY DATA: His latest chemistry showed a BUN of 123, sodium 140, potassium 5.0, chloride 107, CO2 22, glucose 90, and creatinine 2.4. His glucose levels have ranged from 101 to 151 and 166 mg/dL . He has since then been taken off the IV steroids at this time with expected improved glycemic levels otherwise. We will continue the present medical management as given and noted. We will obtain seria l chemistries and supplement accordingly as needed. We will follow. Anabella Sebastian MD cc: [id number] TT: 12/02/2016 15:45:36 Confirmation # [id number] Dictation # [id number] elisha
[2016-12-02] MEDS: Vancomycin 500 mg (Oral/Rectal USE) PO SCH (16:41)
--- NOTE | 2016-12-02 16:56 | CP.CCUPN ---
CCU Subjective - Physician Review Events Since Last Encounter (Free Text): 12/02/16 17:17 The Patient was seen and examined at the bedside, Medical records reviewed, all clinical/lab/hemodynamic/radiographic data were reviewed and management issues were discussed and formulated, Events reviewed He was transferred to the ICU following cardiac arrest 11/24, now orally intubated, unresponsive to verbal stimuli, no neurological improvements. Afebrile. Loose BMs, Stool for C Diff sent, Pt on Started on IV Flagyl and PO Vancomycin as per ID Minimal clear Resp. secretions. Last 24H I&O 3825/2135 Vent sitting PRVC 450/14/45% Pt placed on T-bar 40% this morning, Saturating 95s% The mornig labs reviewed, H/H 7.3/23.7, SMITA with stable renal function 123/2.4 Family at the bedside updated on the patient current condition, want " full code ". CCU Objective - Vital Signs / Intake & Output Vital Signs (Last 4 hours): Vital Signs Temp Pulse Resp BP Pulse Ox 12/02/16 16:00 98.3 F 89 26 H 143/83 100 12/02/16 15:00 89 16 128/76 12/02/16 14:00 91 H 26 H 128/76 100 Intake and Output (Last 8hrs): Intake & Output 12/02/16 12/02/16 12/02/16 06:59 14:59 22:59 Intake Total 1460 715 90 Output Total 800 Balance 660 715 90 Weight 138 lb Intake: IV 800 100 Intake, Piggyback 100 100 Tube Feeding 360 315 90 Free Water Flush 200 200 Output: Urine 800 Urethral (Polanco) 800 Other: # Bowel Movements 1 1 - Physical Exam Head: Positive for: Atraumatic, Normocephalic Pupils: Positive for: PERRL Extroacular Muscles: Positive for: EOMI Conjunctiva: Positive for: Normal Mouth: Positive for: Moist Mucous Membranes Pharnyx: Positive for: Normal, Other (ET tube in place) Nose (External): Positive for: Atraumatic Neck: Positive for: Normal Range of Motion Respiratory/Chest: Positive for: Good Air Exchange, Wheezes, Decreased Breath Sounds, Rhonchi. Negative for: Clear to Auscultation, Respiratory Distress, Accessory Muscle Use Cardiovascular: Positive for: Irregular Rhythm, Peripheal Pulses Present. Negative for: Murmurs, Tachycardic, Bradycardic Abdomen: Positive for: Distention, Normal Bowel Sounds. Negative for: Tenderness Upper Extremity: Positive for: Normal Inspection Lower Extremity: Positive for: Normal Inspection, Edema Neurological: Positive for: Other ( Unresponsive) - Medications Active Medications: Active Medications Generic Name Dose Route Start Last Admin Trade Name Freq PRN Reason Stop Dose Admin Acetaminophen 650 mg 11/22/16 16:39 11/25/16 11:50 Tylenol 650mg/20.3ml Solution Ud PEG 650 mg Q4 PRN Administration Pain, moderate (4-7) Acetaminophen 650 mg 11/22/16 16:45 11/29/16 00:04 Tylenol 650mg/20.3ml Solution Ud PEG 650 mg Q4 PRN Administration Fever >100.4 F Albuterol Sulfate 2.5 mg 11/22/16 14:14 11/23/16 03:48 Albuterol 0.083% Inhal Mary (2.5 Mg/3 Ml) Ud INH 2.5 mg RQ4 PRN Administration Shortness of Breath Albuterol/Ipratropium 3 ml 11/24/16 14:00 12/02/16 13:50 Duoneb 3 Mg/0.5 Mg (3 Ml) Ud INH 3 ml RQ6 OTTONIEL Administration Amiodarone HCl 200 mg 11/23/16 09:00 12/02/16 08:18 Cordarone PEG 200 mg DAILY OTTONIEL Administration Collagenase 1 applic 11/23/16 21:00 12/02/16 08:17 Santyl TOP 1 applic 0900,2100 OTTONIEL Administration Dimethicone 1 applic 11/23/16 21:00 12/02/16 08:18 Proshield Plus Skin Protectant TOP 1 applic 0900,2100 OTTONIEL Administration Ferrous Sulfate 450 mg 11/22/16 13:15 12/02/16 08:20 Feosol Liq PEG 450 mg DAILY OTTONIEL Administration Metronidazole 100 mls @ 100 mls/hr 12/02/16 12:15 12/02/16 16:17 Flagyl 500mg/100ml Ns IVPB 100 mls/hr Q8 OTTONIEL Administration Metoclopramide HCl 10 mg 11/22/16 22:00 12/01/16 21:31 Reglan PEG 10 mg HS OTTONIEL Administration Metoprolol Tartrate 25 mg 11/28/16 21:00 12/02/16 08:19 Lopressor PO 25 mg Q12 OTTONIEL Administration Ondansetron HCl 4 mg 11/22/16 17:00 11/24/16 16:40 Zofran Odt PEG 4 mg Q8 OTTONIEL Administration Pantoprazole Sodium 40 mg 11/22/16 13:15 12/02/16 08:20 Protonix Susp PEG 40 mg DAILY OTTONIEL Administration Silver Sulfadiazine 1 applic 11/23/16 21:00 12/02/16 08:23 Silvadene 1% 50 Gm TOP 1 applic 0900,2100 OTTONIEL Administration Sucralfate 1 gm 11/22/16 17:00 12/02/16 16:16 Carafate Oral Susp PEG 1 gm TID OTTONIEL Administration Vancomycin HCl 125 mg 12/02/16 17:00 12/02/16 16:41 Vancocin (Oral/Rectal Use) PO 125 mg Q8 OTTONIEL Administration - Patient Studies Lab Studies: Lab Studies 12/02/16 12/02/16 12/02/16 Range/Units 16:04 11:01 05:16 WBC (4.8-10.8) K/uL RBC (4.40-5.90) Mil/uL Hgb (12.0-18.0) g/dL Hct (35.0-51.0) % MCV (80.0-94.0) fl MCH (27.0-31.0) pg MCHC (33.0-37.0) g/dL RDW (11.5-14.5) % Plt Count (130-400) K/uL pCO2 (35-45) mm/Hg pO2 (80-100) mm/Hg HCO3 (21-28) mmol/L ABG pH (7.35-7.45) ABG Total CO2 (22-28) mmol/L ABG O2 Saturation (95-98) % ABG O2 Content (15-23) ML/dL ABG Base Excess (-2.0-3.0) mmol/L ABG Hemoglobin (11.7-17.4) g/dL ABG Carboxyhemoglobin (0.5-1.5) % POC ABG HHb (Measured) (0.0-5.0) % ABG Methemoglobin (0.0-3.0) % ABG O2 Capacity (16-24) mL/dL Emmanuel Test A-a O2 Difference mm/Hg Hgb O2 Saturation (95.0-98.0) % Vent Mode FiO2 % PEEP Pressure Support Sodium (132-148) mmol/l Potassium (3.6-5.0) MMOL/L Chloride (98-107) mmol/L Carbon Dioxide (22-30) mmol/L Anion Gap (10-20) BUN (9-20) mg/dl Creatinine (0.8-1.5) mg/dL Est GFR ( Amer) Est GFR (Non-Af Amer) POC Glucose (mg/dL) 112 H 106 101 (65-110) mg/dL Random Glucose (75-110) mg/dL Calcium (8.4-10.2) mg/dL 12/02/16 12/02/16 12/02/16 Range/Units 05:04 04:55 04:55 WBC 26.9 H (4.8-10.8) K/uL RBC 2.66 L (4.40-5.90) Mil/uL Hgb 7.3 L (12.0-18.0) g/dL Hct 23.7 L (35.0-51.0) % MCV 89.1 (80.0-94.0) fl MCH 27.5 (27.0-31.0) pg MCHC 30.9 L (33.0-37.0) g/dL RDW 16.6 H (11.5-14.5) % Plt Count 144 (130-400) K/uL pCO2 33 L (35-45) mm/Hg pO2 121 H (80-100) mm/Hg HCO3 25.3 (21-28) mmol/L ABG pH 7.47 H (7.35-7.45) ABG Total CO2 25.0 (22-28) mmol/L ABG O2 Saturation 99.2 H (95-98) % ABG O2 Content 10.7 L (15-23) ML/dL ABG Base Excess 0.5 (-2.0-3.0) mmol/L ABG Hemoglobin 7.7 L (11.7-17.4) g/dL ABG Carboxyhemoglobin 1.0 (0.5-1.5) % POC ABG HHb (Measured) 0.8 (0.0-5.0) % ABG Methemoglobin 2.2 (0.0-3.0) % ABG O2 Capacity 10.8 L (16-24) mL/dL Emmanuel Test Yes A-a O2 Difference 123.0 mm/Hg Hgb O2 Saturation 96.0 (95.0-98.0) % Vent Mode Cpap+ps FiO2 40.0 % PEEP 5 Pressure Support 10 Sodium 140 (132-148) mmol/l Potassium 5.0 (3.6-5.0) MMOL/L Chloride 107 (98-107) mmol/L Carbon Dioxide 22 (22-30) mmol/L Anion Gap 15 (10-20) BUN 123 H* (9-20) mg/dl Creatinine 2.4 H (0.8-1.5) mg/dL Est GFR ( Amer) 32 Est GFR (Non-Af Amer) 27 POC Glucose (mg/dL) (65-110) mg/dL Random Glucose 90 (75-110) mg/dL Calcium 8.4 (8.4-10.2) mg/dL 12/01/16 Range/Units 21:29 WBC (4.8-10.8) K/uL RBC (4.40-5.90) Mil/uL Hgb (12.0-18.0) g/dL Hct (35.0-51.0) % MCV (80.0-94.0) fl MCH (27.0-31.0) pg MCHC (33.0-37.0) g/dL RDW (11.5-14.5) % Plt Count (130-400) K/uL pCO2 (35-45) mm/Hg pO2 (80-100) mm/Hg HCO3 (21-28) mmol/L ABG pH (7.35-7.45) ABG Total CO2 (22-28) mmol/L ABG O2 Saturation (95-98) % ABG O2 Content (15-23) ML/dL ABG Base Excess (-2.0-3.0) mmol/L ABG Hemoglobin (11.7-17.4) g/dL ABG Carboxyhemoglobin (0.5-1.5) % POC ABG HHb (Measured) (0.0-5.0) % ABG Methemoglobin (0.0-3.0) % ABG O2 Capacity (16-24) mL/dL Emmanuel Test A-a O2 Difference mm/Hg Hgb O2 Saturation (95.0-98.0) % Vent Mode FiO2 % PEEP Pressure Support Sodium (132-148) mmol/l Potassium (3.6-5.0) MMOL/L Chloride (98-107) mmol/L Carbon Dioxide (22-30) mmol/L Anion Gap (10-20) BUN (9-20) mg/dl Creatinine (0.8-1.5) mg/dL Est GFR ( Amer) Est GFR (Non-Af Amer) POC Glucose (mg/dL) 131 H (65-110) mg/dL Random Glucose (75-110) mg/dL Calcium (8.4-10.2) mg/dL Laboratory Results - last 24 hr 12/01/16 12/02/16 12/02/16 21:29 04:55 04:55 WBC 26.9 H RBC 2.66 L Hgb 7.3 L Hct 23.7 L MCV 89.1 MCH 27.5 MCHC 30.9 L RDW 16.6 H Plt Count 144 pCO2 pO2 HCO3 ABG pH ABG Total CO2 ABG O2 Saturation ABG O2 Content ABG Base Excess ABG Hemoglobin ABG Carboxyhemoglobin POC ABG HHb (Measured) ABG Methemoglobin ABG O2 Capacity Emmanuel Test A-a O2 Difference Hgb O2 Saturation Vent Mode FiO2 PEEP Pressure Support Sodium 140 Potassium 5.0 Chloride 107 Carbon Dioxide 22 Anion Gap 15 BUN 123 H* Creatinine 2.4 H Est GFR ( Amer) 32 Est GFR (Non-Af Amer) 27 POC Glucose (mg/dL) 131 H Random Glucose 90 Calcium 8.4 12/02/16 12/02/16 12/02/16 05:04 05:16 11:01 WBC RBC Hgb Hct MCV MCH MCHC RDW Plt Count pCO2 33 L pO2 121 H HCO3 25.3 ABG pH 7.47 H ABG Total CO2 25.0 ABG O2 Saturation 99.2 H ABG O2 Content 10.7 L ABG Base Excess 0.5 ABG Hemoglobin 7.7 L ABG Carboxyhemoglobin 1.0 POC ABG HHb (Measured) 0.8 ABG Methemoglobin 2.2 ABG O2 Capacity 10.8 L Emmanuel Test Yes A-a O2 Difference 123.0 Hgb O2 Saturation 96.0 Vent Mode Cpap+ps FiO2 40.0 PEEP 5 Pressure Support 10 Sodium Potassium Chloride Carbon Dioxide Anion Gap BUN Creatinine Est GFR ( Amer) Est GFR (Non-Af Amer) POC Glucose (mg/dL) 101 106 Random Glucose Calcium 12/02/16 16:04 WBC RBC Hgb Hct MCV MCH MCHC RDW Plt Count pCO2 pO2 HCO3 ABG pH ABG Total CO2 ABG O2 Saturation ABG O2 Content ABG Base Excess ABG Hemoglobin ABG Carboxyhemoglobin POC ABG HHb (Measured) ABG Methemoglobin ABG O2 Capacity Emmanuel Test A-a O2 Difference Hgb O2 Saturation Vent Mode FiO2 PEEP Pressure Support Sodium Potassium Chloride Carbon Dioxide Anion Gap BUN Creatinine Est GFR ( Amer) Est GFR (Non-Af Amer) POC Glucose (mg/dL) 112 H Random Glucose Calcium Fingerstick Blood Sugar Results: 112 Review of Systems - Review of Systems Systems not reviewed;Unavailable: Intubated Critical Care Progress Note - Ventilator Checklist Head of Bed 30 Degrees: Yes Daily Sedation Vacation: Yes Daily Assessment of Readiness to Wean: Yes Daily Spontaneous Breathing Trial: Yes PUD Prophalyxis: Yes DVT Prophylaxis: Yes Oral Care with Chlorhexidine Gluconate {CHG}: Yes - Extremities/Vascular Does the Patient have a Central Venous Catheter?: Yes Does the Patient need a Central Venous Catheter?: Yes Assessment/Plan (1) Cardiac arrest Current Visit: Yes Status: Acute Comment: No neurological improvements Remains unresponsive to verbal stimuli Vent weaning as tolerate EEG Neurology evaluation appreciated (2) Acute respiratory failure Current Visit: Yes Status: Acute Comment: IV Antibiotics Aggressive Pulmonary toilets, duonebs Q 6H, percussive bed. Placed on T-bar 40% this morning and tolerating so far Bronchodilator Nebs (3) SMITA (acute kidney injury) Current Visit: Yes Status: Acute Comment: Nephrology evaluation appreciated Non oliguric SMITA Patient Family would agree for HD if kideny function worsens (4) Anoxic brain injury Current Visit: Yes Status: Acute Priority: High Comment: Poor prognosis Pall Care consult (5) COPD (chronic obstructive pulmonary disease) with acute bronchitis Current Visit: Yes Status: Acute Priority: High (6) Atrial fibrillation with RVR Current Visit: No Status: Acute Comment: HR controlled on Amiodarone 200 mg PEG DAILY
--- NOTE | 2016-12-02 20:27 | CP.PCM.PN ---
Subjective - Date & Time of Evaluation Date of Evaluation: 12/02/16 Time of Evaluation: 22:22 - Subjective Subjective: Above noted Objective - Vital Signs/Intake and Output Vital Signs (last 24 hours): Temp Pulse Resp BP Pulse Ox 98.3 F 92 H 28 H 132/88 100 12/02/16 16:00 12/02/16 18:00 12/02/16 18:00 12/02/16 18:00 12/02/16 18:00 Intake and Output: 12/02/16 12/03/16 18:59 06:59 Intake Total 1095 Output Total 1000 Balance 95 - Medications Medications: Current Medications Acetaminophen (Tylenol 650mg/20.3ml Solution Ud) 650 mg PEG Q4 PRN PRN Reason: Pain, moderate (4-7) Last Admin: 11/25/16 11:50 Dose: 650 mg Acetaminophen (Tylenol 650mg/20.3ml Solution Ud) 650 mg PEG Q4 PRN PRN Reason: Fever >100.4 F Last Admin: 11/29/16 00:04 Dose: 650 mg Albuterol Sulfate (Albuterol 0.083% Inhal Mary (2.5 Mg/3 Ml) Ud) 2.5 mg INH RQ4 PRN PRN Reason: Shortness of Breath Last Admin: 11/23/16 03:48 Dose: 2.5 mg Albuterol/Ipratropium (Duoneb 3 Mg/0.5 Mg (3 Ml) Ud) 3 ml INH RQ6 [facility] Last Admin: 12/02/16 19:07 Dose: 3 ml Amiodarone HCl (Cordarone) 200 mg PEG DAILY [facility] Last Admin: 12/02/16 08:18 Dose: 200 mg Collagenase (Santyl) 1 applic TOP 0900,2100 [facility] Last Admin: 12/02/16 08:17 Dose: 1 applic Dimethicone (Proshield Plus Skin Protectant) 1 applic TOP 0900,2100 [facility] Last Admin: 12/02/16 08:18 Dose: 1 applic Ferrous Sulfate (Feosol Liq) 450 mg PEG DAILY [facility] Last Admin: 12/02/16 08:20 Dose: 450 mg Metronidazole (Flagyl 500mg/100ml Ns) 100 mls @ 100 mls/hr IVPB Q8 [facility] Last Admin: 12/02/16 16:17 Dose: 100 mls/hr Metoclopramide HCl (Reglan) 10 mg PEG HS [facility] Last Admin: 12/01/16 21:31 Dose: 10 mg Metoprolol Tartrate (Lopressor) 25 mg PO Q12 [facility] Last Admin: 12/02/16 08:19 Dose: 25 mg Ondansetron HCl (Zofran Odt) 4 mg PEG Q8 [facility] Last Admin: 11/24/16 16:40 Dose: 4 mg Pantoprazole Sodium (Protonix Susp) 40 mg PEG DAILY [facility] Last Admin: 12/02/16 08:20 Dose: 40 mg Silver Sulfadiazine (Silvadene 1% 50 Gm) 1 applic TOP 0900,2100 [facility] Last Admin: 12/02/16 08:23 Dose: 1 applic Sucralfate (Carafate Oral Susp) 1 gm PEG TID [facility] Last Admin: 12/02/16 16:16 Dose: 1 gm Vancomycin HCl (Vancocin (Oral/Rectal Use)) 125 mg PO Q8 [facility] Last Admin: 12/02/16 16:41 Dose: 125 mg - Labs Labs: 12/02/16 04:55 12/02/16 04:55 PT 12.7 SECONDS (9.6-11.2) H 11/24/16 06:00 INR 1.22 (0.92-1.08) H 11/24/16 06:00 APTT 33.9 SECONDS (23.3-32.5) H D 11/24/16 06:00 - Respiratory Exam Respiratory Exam: NORMAL BREATHING PATTERN - Cardiovascular Exam Cardiovascular Exam: REGULAR RHYTHM - GI/Abdominal Exam GI & Abdominal Exam: Normal Bowel Sounds Assessment and Plan - Assessment and Plan (Free Text) Assessment: S/P Acute Respiratory Failure Asystole Anoxic encephalopathy Intubated Aspiration?? HX COPD Klebsiella Pneumonia MDR ABX IVF Steroids Pulmonary ID S/P Asystole 2 to Pulmonary dx (S/P V-fib/ V-tach 2 to pulmonary dx) A-fib CAD S/P CABG Amiodorone Cardiology Swallowing?? aspiration?? PEG Jevity and oral feedings Hx s/p + C-diff + Ag -toxin Hx Dec oral intake improved on Megace SMITA/ CKD 2 to Sepsis acute ischemia ATN HX Hyperkalemia and hypokalemia etiol ?? Adrenal insufficiency?? Hx of Orthostatic Hypotension at DC ACTH Cortisol level ?? Elysiaf d/c Endo and Nephrology Consult Sick Euthyroid syndrome Endo Anemia etiol? Transfusion Chronic chest wall pain Pain meds
[2016-12-03] MEDS: metroNIDAZOLE 500mg/100ml NS 100 ML IVPB SCH ×3 (02:54→16:15)
[2016-12-03] MEDS: Vancomycin 500 mg (Oral/Rectal USE) PO SCH ×3 (02:55→16:14)
[2016-12-03 06:22] LABS: ABG ALLEN TEST YES; ABG MECHANICAL RATE 12; ATERIAL BLOOD GAS PEEP 5
[2016-12-03 06:55] LABS: MEAN CELL VOLUME 88.8 fl (80.0-94.0); MEAN CORPUSCULAR HEMOGLOBIN 28.3 pg (27.0-31.0); MEAN CORPUSCULAR HGB CONC 31.9 g/dL (33.0-37.0); WHITE BLOOD COUNT 21.9 K/uL (4.8-10.8)
[2016-12-03 07:03] LABS: CALCIUM 8.5 mg/dL (8.4-10.2); POTASSIUM 4.6 MMOL/L (3.6-5.0)
[2016-12-03] MEDS: Albuterol-Ipratrop 3 mg / 0.5 (3 ml) UD INH SCH ×3 (07:34→19:22)
[2016-12-03] MEDS: Sucralfate 1 gm/10 ml Oral Susp UD PEG SCH ×4 (08:46→21:00)
[2016-12-03] MEDS: Pantoprazole 40 mg Susp UD PEG SCH (08:47)
[2016-12-03] MEDS: Ferrous Sulfate 300 mg/5 mL Liq UD PEG SCH (08:47)
[2016-12-03] MEDS: Santyl Collagenase OINTMENT TOP SCH ×2 (08:50→21:36)
[2016-12-03] MEDS: Proshield Plus GEL TOP SCH ×2 (08:50→21:35)
[2016-12-03] MEDS: Silver Sulfadiazine 1% CREAM (50 gm) TOP SCH ×2 (08:51→21:36)
--- NOTE | 2016-12-03 09:09 | CP.PCM.PN ---
Subjective - Date & Time of Evaluation Date of Evaluation: 12/03/16 Time of Evaluation: 09:04 - Subjective Subjective: Interim events and EMR entries reviewed. Placed back on mechanical ventilator overnight because of dyspnea. Neurologically unchanged this morning. Respiration is comfortable on PRVC/AC 12/5/500/40. SpO2 100%, RR 25BPM, PAP 20cm. CXR this morning unchanged w/o consolidation or pnx. Started on vanco/flagyl and Tygacil discontinued. Leukocytosis a little lower this AM @ 21.9, Hgb 7.3 today. Dependant edema (trunk) w/o cyanosis. Trachea remains midline, no JVD seen. No dullness on chest percussion, no subcut emphysema. Breath sounds are present bilaterally. Sonorous rhonchi (few) in dependant zones of lower lobes. Few medium rales posteriorly w/o wheezing or bronchial breathing. Heart sounds well heard, irregular rhythm. This is day #10 orally intubated. Will need tracheostomy at this time. Placed on CPAP/PS ventilation again this morning w/o incident. Would not attempt T-bar again until after tracheostomy. Would transfuse to 9GM. Objective - Vital Signs/Intake and Output Vital Signs (last 24 hours): Temp Pulse Resp BP Pulse Ox 97.6 F 106 H 25 H 130/80 100 12/03/16 08:00 12/03/16 08:46 12/03/16 08:00 12/03/16 08:46 12/03/16 08:00 Intake and Output: 12/02/16 12/03/16 23:59 11:59 Intake Total 940 605 Output Total 1000 Balance -60 605 - Medications Medications: Current Medications Acetaminophen (Tylenol 650mg/20.3ml Solution Ud) 650 mg PEG Q4 PRN PRN Reason: Pain, moderate (4-7) Last Admin: 11/25/16 11:50 Dose: 650 mg Acetaminophen (Tylenol 650mg/20.3ml Solution Ud) 650 mg PEG Q4 PRN PRN Reason: Fever >100.4 F Last Admin: 11/29/16 00:04 Dose: 650 mg Albuterol Sulfate (Albuterol 0.083% Inhal Mary (2.5 Mg/3 Ml) Ud) 2.5 mg INH RQ4 PRN PRN Reason: Shortness of Breath Last Admin: 11/23/16 03:48 Dose: 2.5 mg Albuterol/Ipratropium (Duoneb 3 Mg/0.5 Mg (3 Ml) Ud) 3 ml INH RQ6 [facility] Last Admin: 12/03/16 07:34 Dose: 3 ml Amiodarone HCl (Cordarone) 200 mg PEG DAILY [facility] Last Admin: 12/03/16 08:46 Dose: 200 mg Collagenase (Santyl) 1 applic TOP 0900,2099 [facility] Last Admin: 12/03/16 08:50 Dose: 1 applic Dimethicone (Proshield Plus Skin Protectant) 1 applic TOP 0900,2099 [facility] Last Admin: 12/03/16 08:50 Dose: 1 applic Ferrous Sulfate (Feosol Liq) 450 mg PEG DAILY [facility] Last Admin: 12/03/16 08:47 Dose: 450 mg Metronidazole (Flagyl 500mg/100ml Ns) 100 mls @ 100 mls/hr IVPB Q8 [facility] Last Admin: 12/03/16 08:45 Dose: 100 mls/hr Metoclopramide HCl (Reglan) 10 mg PEG HS [facility] Last Admin: 12/02/16 22:30 Dose: 10 mg Metoprolol Tartrate (Lopressor) 25 mg PO Q12 [facility] Last Admin: 12/03/16 08:46 Dose: 25 mg Ondansetron HCl (Zofran Odt) 4 mg PEG Q8 [facility] Last Admin: 11/24/16 16:40 Dose: 4 mg Pantoprazole Sodium (Protonix Susp) 40 mg PEG DAILY [facility] Last Admin: 12/03/16 08:47 Dose: 40 mg Silver Sulfadiazine (Silvadene 1% 50 Gm) 1 applic TOP 899,2099 [facility] Last Admin: 12/03/16 08:51 Dose: 1 applic Sucralfate (Carafate Oral Susp) 1 gm PEG TID [facility] Last Admin: 12/03/16 08:46 Dose: 1 gm Vancomycin HCl (Vancocin (Oral/Rectal Use)) 125 mg PO Q8 [facility] Last Admin: 12/03/16 08:48 Dose: 125 mg - Labs Labs: 12/03/16 06:00 12/03/16 06:00 PT 12.7 SECONDS (9.6-11.2) H 11/24/16 06:00 INR 1.22 (0.92-1.08) H 11/24/16 06:00 APTT 33.9 SECONDS (23.3-32.5) H D 11/24/16 06:00 Assessment and Plan (1) Respiratory failure with hypercapnia Status: Resolved (2) Endotracheally intubated Status: Acute (3) On mechanically assisted ventilation Status: Acute (4) Pneumonia Status: Resolved (5) COPD exacerbation Status: Resolved
--- NOTE | 2016-12-03 12:07 | RAD ---
HISTORY: Intubated. Portable study 04:45. COMPARISON: No prior. FINDINGS: LUNGS: Progressive more confluent infiltrates right lower lobe, left lower lobe heart less than optimal inspiratory effort. PLEURA: Stable small bilateral pleural effusions. CARDIOVASCULAR: Venous access catheter in stable, satisfactory position. OSSEOUS STRUCTURES: No significant abnormalities. VISUALIZED UPPER ABDOMEN: Normal. OTHER FINDINGS: Satisfactory and stable position of endotracheal tube. IMPRESSION: Greater degree of prominence of the bilateral lower lobe infiltrates which may in part be technical. Stable position of support apparatus.
--- NOTE | 2016-12-03 13:43 | CP.CCUPN ---
CCU Subjective - Physician Review Subjective (Free Text): RESEARCH TECH PROGRESS NOTE Patient examined, interim events reviewed: Remains comatose, on MV support, breathing 25 on CPAP PS since 9AM, otherwise was placed back to AC mode overnight after dyspnea and distress being on T- piece ventilation almost all day yesterday. No recurrent Fever spikes since 11/28, BP 123/66, HR 89 in A Fib, RR as above. 24H I/Os = 1835/1000 ml. Non- oliguric renal failure noted even without IVF hydration. No gross seizure activity reported. ROS: All pertinent Nursing notes and all other 10+ systems reviewed: otherwise non-obtainable and as above. PMSFH: No other new pertinent information relative to current medical problems noted. No other distress noted: EXAM- HEENT: no icterus, pupils midline, equal and reactive, no nystagmus, occasional mild chewing activity noted. NECK: no visible JVD, supple, carotids equal upstroke bilat/no bruits CHEST: decreased BS bases, no wheezes audible. HEART: regular, distant, S1S2, no murmur audible, no rubs. ABD: soft, flat, PEG intact, no increased distention, no focal tenderness, no HSM. BS hypoactive. EXT: trace LE edema, no peripheral/ digital cyanosis, no calf tenderness or palpable cords, distal pulses intact and symmetrical NEURO: flaccid x 4, no purposeful motor activity. SKIN: no rashes LABS: 7.46/32/157 WBC= 21.9 HGB= 7.3 PLTs = 157K Na= 141 K= 4.6 HCO3= 22 BUN/Cr= 121/2.4 BS= 113 CXR: increase in bibasilar interstitial markings suggestive of effusions. ETT position OK above jung (my interp). Assessment: 1. Wes-Asystole Code 2 Retained secretions /Cardiomyopathy 2. Acute Resp Insuff, r/o 2 Chronic Aspiration events due to PO meals with PEG feeds. 3. Coma 2 Anoxic Encephalopathy 4. Acute Anemia 2 non-Blood loss and Chronic Disease state. 5. Acute on Chronic Kidney Disease III, r/o ATN from recent Code Blue. PLAN: 1. As he has tolerated MV weans with a stable spontaneous breathing pattern, I would not extubate him nor should he be extubated in my opinion given his comatose state and inability to self-protect airway and self-mobilize secretions. He is now day #10 on MV and should be considered for early tracheostomy unless family disagrees. 2. Hemodynamics have been stable and lactate levels have normalized days ago. 3. He remains anemic and no significant RBC production ( will check retic count as well) noted since last PRBCS (1 unit) given on 11/26/16. Though hemodynamics and oxygenation are stable, will agree to PRBCS again today, especially with daily bloodwork. No active bleeding evident. 4. Vanco PO and IV Flagyl are now the current antibiotics as per ID. 5. Significant rise in BUN noted, normokalemia noted, and he is not acidotic nor fluid overloaded, so do not see any need for acute HD at this time. Would and will increase free water via tube feeds. Hold or will not start any diuretics at this time.
--- NOTE | 2016-12-03 13:44 | CP.PCM.PN ---
Subjective - Date & Time of Evaluation Date of Evaluation: 12/03/16 Time of Evaluation: 09:20 - Subjective Subjective: UNRESPONSIVE Objective - Vital Signs/Intake and Output Vital Signs (last 24 hours): Temp Pulse Resp BP Pulse Ox 97.7 F 90 26 H 123/66 100 12/03/16 12:41 12/03/16 12:41 12/03/16 12:41 12/03/16 11:00 12/03/16 12:41 Intake and Output: 12/03/16 12/03/16 06:59 18:59 Intake Total 740 335 Balance 740 335 - Medications Medications: Current Medications Acetaminophen (Tylenol 650mg/20.3ml Solution Ud) 650 mg PEG Q4 PRN PRN Reason: Pain, moderate (4-7) Last Admin: 11/25/16 11:50 Dose: 650 mg Acetaminophen (Tylenol 650mg/20.3ml Solution Ud) 650 mg PEG Q4 PRN PRN Reason: Fever >100.4 F Last Admin: 11/29/16 00:04 Dose: 650 mg Albuterol Sulfate (Albuterol 0.083% Inhal Mary (2.5 Mg/3 Ml) Ud) 2.5 mg INH RQ4 PRN PRN Reason: Shortness of Breath Last Admin: 11/23/16 03:48 Dose: 2.5 mg Albuterol/Ipratropium (Duoneb 3 Mg/0.5 Mg (3 Ml) Ud) 3 ml INH RQ6 [facility] Last Admin: 12/03/16 07:34 Dose: 3 ml Amiodarone HCl (Cordarone) 200 mg PEG DAILY [facility] Last Admin: 12/03/16 08:46 Dose: 200 mg Collagenase (Santyl) 1 applic TOP 0900,2100 [facility] Last Admin: 12/03/16 08:50 Dose: 1 applic Dimethicone (Proshield Plus Skin Protectant) 1 applic TOP 0900,2100 [facility] Last Admin: 12/03/16 08:50 Dose: 1 applic Ferrous Sulfate (Feosol Liq) 450 mg PEG DAILY [facility] Last Admin: 12/03/16 08:47 Dose: 450 mg Metronidazole (Flagyl 500mg/100ml Ns) 100 mls @ 100 mls/hr IVPB Q8 [facility] Last Admin: 12/03/16 08:45 Dose: 100 mls/hr Metoclopramide HCl (Reglan) 10 mg PEG HS [facility] Last Admin: 12/02/16 22:30 Dose: 10 mg Metoprolol Tartrate (Lopressor) 25 mg PO Q12 [facility] Last Admin: 12/03/16 08:46 Dose: 25 mg Ondansetron HCl (Zofran Odt) 4 mg PEG Q8 [facility] Last Admin: 11/24/16 16:40 Dose: 4 mg Pantoprazole Sodium (Protonix Susp) 40 mg PEG DAILY [facility] Last Admin: 12/03/16 08:47 Dose: 40 mg Silver Sulfadiazine (Silvadene 1% 50 Gm) 1 applic TOP 0900,2100 [facility] Last Admin: 12/03/16 08:51 Dose: 1 applic Sucralfate (Carafate Oral Susp) 1 gm PEG TID [facility] Last Admin: 12/03/16 12:42 Dose: 1 gm Vancomycin HCl (Vancocin (Oral/Rectal Use)) 125 mg PO Q8 [facility] Last Admin: 12/03/16 08:48 Dose: 125 mg - Labs Labs: 12/03/16 06:00 12/03/16 06:00 PT 12.7 SECONDS (9.6-11.2) H 11/24/16 06:00 INR 1.22 (0.92-1.08) H 11/24/16 06:00 APTT 33.9 SECONDS (23.3-32.5) H D 11/24/16 06:00 - Respiratory Exam Respiratory Exam: Rales, Rhonchi - Cardiovascular Exam Cardiovascular Exam: Irregular Rhythm, +S1, +S2 - Additional Findings 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
--- NOTE | 2016-12-03 14:30 | CP.PCM.PN ---
Subjective - Date & Time of Evaluation Date of Evaluation: 12/03/16 Time of Evaluation: 08:00 - Subjective Subjective: remains comatose on vent Objective - Vital Signs/Intake and Output Vital Signs (last 24 hours): Temp Pulse Resp BP Pulse Ox 97.7 F 93 H 27 H 116/66 100 12/03/16 12:41 12/03/16 14:00 12/03/16 14:00 12/03/16 14:00 12/03/16 14:00 Intake and Output: 12/03/16 12/03/16 06:59 18:59 Intake Total 740 615 Balance 740 615 - Medications Medications: Current Medications Acetaminophen (Tylenol 650mg/20.3ml Solution Ud) 650 mg PEG Q4 PRN PRN Reason: Pain, moderate (4-7) Last Admin: 11/25/16 11:50 Dose: 650 mg Acetaminophen (Tylenol 650mg/20.3ml Solution Ud) 650 mg PEG Q4 PRN PRN Reason: Fever >100.4 F Last Admin: 11/29/16 00:04 Dose: 650 mg Albuterol Sulfate (Albuterol 0.083% Inhal Mary (2.5 Mg/3 Ml) Ud) 2.5 mg INH RQ4 PRN PRN Reason: Shortness of Breath Last Admin: 11/23/16 03:48 Dose: 2.5 mg Albuterol/Ipratropium (Duoneb 3 Mg/0.5 Mg (3 Ml) Ud) 3 ml INH RQ6 [facility] Last Admin: 12/03/16 14:04 Dose: 3 ml Amiodarone HCl (Cordarone) 200 mg PEG DAILY [facility] Last Admin: 12/03/16 08:46 Dose: 200 mg Collagenase (Santyl) 1 applic TOP 0900,2100 [facility] Last Admin: 12/03/16 08:50 Dose: 1 applic Dimethicone (Proshield Plus Skin Protectant) 1 applic TOP 0900,2100 [facility] Last Admin: 12/03/16 08:50 Dose: 1 applic Ferrous Sulfate (Feosol Liq) 450 mg PEG DAILY [facility] Last Admin: 12/03/16 08:47 Dose: 450 mg Metronidazole (Flagyl 500mg/100ml Ns) 100 mls @ 100 mls/hr IVPB Q8 [facility] Last Admin: 12/03/16 08:45 Dose: 100 mls/hr Metoclopramide HCl (Reglan) 10 mg PEG HS [facility] Last Admin: 12/02/16 22:30 Dose: 10 mg Metoprolol Tartrate (Lopressor) 25 mg PO Q12 [facility] Last Admin: 12/03/16 08:46 Dose: 25 mg Ondansetron HCl (Zofran Odt) 4 mg PEG Q8 [facility] Last Admin: 11/24/16 16:40 Dose: 4 mg Pantoprazole Sodium (Protonix Susp) 40 mg PEG DAILY [facility] Last Admin: 12/03/16 08:47 Dose: 40 mg Silver Sulfadiazine (Silvadene 1% 50 Gm) 1 applic TOP 0900,2100 [facility] Last Admin: 12/03/16 08:51 Dose: 1 applic Sucralfate (Carafate Oral Susp) 1 gm PEG TID [facility] Last Admin: 12/03/16 12:42 Dose: 1 gm Vancomycin HCl (Vancocin (Oral/Rectal Use)) 125 mg PO Q8 [facility] Last Admin: 12/03/16 08:48 Dose: 125 mg - Labs Labs: 12/03/16 06:00 12/03/16 06:00 PT 12.7 SECONDS (9.6-11.2) H 11/24/16 06:00 INR 1.22 (0.92-1.08) H 11/24/16 06:00 APTT 33.9 SECONDS (23.3-32.5) H D 11/24/16 06:00 Assessment and Plan (1) COPD (chronic obstructive pulmonary disease) with acute bronchitis Status: Acute (2) Atrial fibrillation Status: Acute (3) CHF (congestive heart failure) Status: Acute (4) Dehydration Status: Acute (5) Moderate COPD (chronic obstructive pulmonary disease) Status: Acute (6) PAD (peripheral artery disease) Status: Acute (7) Pneumonia Status: Resolved (8) COPD (chronic obstructive pulmonary disease) Status: Chronic (9) COPD exacerbation Status: Resolved
--- NOTE | 2016-12-03 16:33 | PN ---
DATE: 12/03/2016 ROOM: ICU room 423 SUBJECTIVE: This is a 71-year-old male with recent pneumonia on the background of possible aspiratio n pneumonia and underlying chronic obstructive lung disease. Started initially on IV steroid therapy , which has since then been discontinued at this time. Transient hyperglycemic accelerations have taveras pervened, but have improved accordingly as noted. The latest chemistry showed a BUN of 121, sodium 1 41, potassium 4.6, chloride 108, CO2 of 22, glucose 113, and creatinine 2.4. His glucose levels have ranged from 117-131 and 146 mg/dL. There is actually no insulin therapy noted and required at this time. We will obtain serial chemistries and supplement accordingly as needed and we will continue th e present medical management as given. We will obtain serial chemistries and supplement accordingly as needed. We will follow. Anabella Sebastian MD cc: [id number] TT: 12/03/2016 16:32:24 Confirmation # [id number] Dictation # [id number] elisha
--- NOTE | 2016-12-03 17:28 | CP.PCM.PN ---
Subjective - Date & Time of Evaluation Date of Evaluation: 12/03/16 Time of Evaluation: 05:00 - Subjective Subjective: Intubated on ventilator support Un responsive Objective - Vital Signs/Intake and Output Vital Signs (last 24 hours): Temp Pulse Resp BP Pulse Ox 98.5 F 99 H 25 H 122/78 100 12/03/16 16:00 12/03/16 16:00 12/03/16 16:00 12/03/16 16:00 12/03/16 16:00 Intake and Output: 12/03/16 12/03/16 06:59 18:59 Intake Total 740 705 Balance 740 705 - Medications Medications: Current Medications Acetaminophen (Tylenol 650mg/20.3ml Solution Ud) 650 mg PEG Q4 PRN PRN Reason: Pain, moderate (4-7) Last Admin: 11/25/16 11:50 Dose: 650 mg Acetaminophen (Tylenol 650mg/20.3ml Solution Ud) 650 mg PEG Q4 PRN PRN Reason: Fever >100.4 F Last Admin: 11/29/16 00:04 Dose: 650 mg Albuterol Sulfate (Albuterol 0.083% Inhal Mary (2.5 Mg/3 Ml) Ud) 2.5 mg INH RQ4 PRN PRN Reason: Shortness of Breath Last Admin: 11/23/16 03:48 Dose: 2.5 mg Albuterol/Ipratropium (Duoneb 3 Mg/0.5 Mg (3 Ml) Ud) 3 ml INH RQ6 [facility] Last Admin: 12/03/16 14:04 Dose: 3 ml Amiodarone HCl (Cordarone) 200 mg PEG DAILY [facility] Last Admin: 12/03/16 08:46 Dose: 200 mg Collagenase (Santyl) 1 applic TOP 0900,2100 [facility] Last Admin: 12/03/16 08:50 Dose: 1 applic Dimethicone (Proshield Plus Skin Protectant) 1 applic TOP 0900,2100 [facility] Last Admin: 12/03/16 08:50 Dose: 1 applic Ferrous Sulfate (Feosol Liq) 450 mg PEG DAILY [facility] Last Admin: 12/03/16 08:47 Dose: 450 mg Metronidazole (Flagyl 500mg/100ml Ns) 100 mls @ 100 mls/hr IVPB Q8 [facility] Last Admin: 05/17/17 16:15 Dose: 100 mls/hr Metoclopramide HCl (Reglan) 10 mg PEG HS [facility] Last Admin: 12/02/16 22:30 Dose: 10 mg Metoprolol Tartrate (Lopressor) 25 mg PO Q12 [facility] Last Admin: 12/03/16 08:46 Dose: 25 mg Ondansetron HCl (Zofran Odt) 4 mg PEG Q8 [facility] Last Admin: 11/24/16 16:40 Dose: 4 mg Pantoprazole Sodium (Protonix Susp) 40 mg PEG DAILY [facility] Last Admin: 12/03/16 08:47 Dose: 40 mg Silver Sulfadiazine (Silvadene 1% 50 Gm) 1 applic TOP 0900,2100 [facility] Last Admin: 12/03/16 08:51 Dose: 1 applic Sucralfate (Carafate Oral Susp) 1 gm PEG TID [facility] Last Admin: 12/03/16 16:14 Dose: 1 gm Vancomycin HCl (Vancocin (Oral/Rectal Use)) 125 mg PO Q8 [facility] Last Admin: 12/03/16 16:14 Dose: 125 mg - Labs Labs: 12/03/16 06:00 12/03/16 06:00 PT 12.7 SECONDS (9.6-11.2) H 11/24/16 06:00 INR 1.22 (0.92-1.08) H 11/24/16 06:00 APTT 33.9 SECONDS (23.3-32.5) H D 11/24/16 06:00 - ENT Exam ENT Exam: Mucous Membranes Dry - Respiratory Exam Additional comments: No rales or wheezes - Cardiovascular Exam Additional comments: A. fib - GI/Abdominal Exam GI & Abdominal Exam: Soft - Extremities Exam Additional comments: No edema Assessment and Plan - Assessment and Plan (Free Text) Assessment: SMITA renal function relatively stable Disproportionately high BUn may be sec to tube feedings/sepsis R/o blood in GI tract Chronic hyperkalemia. K+ is controlled today S/P cardiac arrest Respiratory faillure, pneumonia Sepsis Plan: Continue to monitor renal function & urine output Avoid use of nephrotoxic meds
--- NOTE | 2016-12-03 19:03 | CP.PCM.PN ---
Subjective - Date & Time of Evaluation Date of Evaluation: 12/03/16 Time of Evaluation: 22:22 - Subjective Subjective: Above noted Tracheostomy?? Long d/w family Awaiting reconsult with Neurology Objective - Vital Signs/Intake and Output Vital Signs (last 24 hours): Temp Pulse Resp BP Pulse Ox 98.5 F 97 H 28 H 122/75 100 12/03/16 16:00 12/03/16 18:00 12/03/16 18:00 12/03/16 18:00 12/03/16 18:00 Intake and Output: 12/03/16 12/04/16 18:59 06:59 Intake Total 795 Output Total 750 Balance 45 - Medications Medications: Current Medications Acetaminophen (Tylenol 650mg/20.3ml Solution Ud) 650 mg PEG Q4 PRN PRN Reason: Pain, moderate (4-7) Last Admin: 11/25/16 11:50 Dose: 650 mg Acetaminophen (Tylenol 650mg/20.3ml Solution Ud) 650 mg PEG Q4 PRN PRN Reason: Fever >100.4 F Last Admin: 11/29/16 00:04 Dose: 650 mg Albuterol Sulfate (Albuterol 0.083% Inhal Mary (2.5 Mg/3 Ml) Ud) 2.5 mg INH RQ4 PRN PRN Reason: Shortness of Breath Last Admin: 11/23/16 03:48 Dose: 2.5 mg Albuterol/Ipratropium (Duoneb 3 Mg/0.5 Mg (3 Ml) Ud) 3 ml INH RQ6 [facility] Last Admin: 12/03/16 14:04 Dose: 3 ml Amiodarone HCl (Cordarone) 200 mg PEG DAILY [facility] Last Admin: 12/03/16 08:46 Dose: 200 mg Collagenase (Santyl) 1 applic TOP 0900,2100 [facility] Last Admin: 12/03/16 08:50 Dose: 1 applic Dimethicone (Proshield Plus Skin Protectant) 1 applic TOP 0900,2100 [facility] Last Admin: 12/03/16 08:50 Dose: 1 applic Ferrous Sulfate (Feosol Liq) 450 mg PEG DAILY [facility] Last Admin: 12/03/16 08:47 Dose: 450 mg Metronidazole (Flagyl 500mg/100ml Ns) 100 mls @ 100 mls/hr IVPB Q8 [facility] Last Admin: 12/03/16 16:15 Dose: 100 mls/hr Metoclopramide HCl (Reglan) 10 mg PEG HS [facility] Last Admin: 12/02/16 22:30 Dose: 10 mg Metoprolol Tartrate (Lopressor) 25 mg PO Q12 [facility] Last Admin: 12/03/16 08:46 Dose: 25 mg Ondansetron HCl (Zofran Odt) 4 mg PEG Q8 [facility] Last Admin: 11/24/16 16:40 Dose: 4 mg Pantoprazole Sodium (Protonix Susp) 40 mg PEG DAILY [facility] Last Admin: 12/03/16 08:47 Dose: 40 mg Silver Sulfadiazine (Silvadene 1% 50 Gm) 1 applic TOP 0900,2100 [facility] Last Admin: 12/03/16 08:51 Dose: 1 applic Sucralfate (Carafate Oral Susp) 1 gm PEG TID [facility] Last Admin: 12/03/16 16:14 Dose: 1 gm Vancomycin HCl (Vancocin (Oral/Rectal Use)) 125 mg PO Q8 [facility] Last Admin: 12/03/16 16:14 Dose: 125 mg - Labs Labs: 12/03/16 06:00 12/03/16 06:00 PT 12.7 SECONDS (9.6-11.2) H 11/24/16 06:00 INR 1.22 (0.92-1.08) H 11/24/16 06:00 APTT 33.9 SECONDS (23.3-32.5) H D 11/24/16 06:00 - Respiratory Exam Respiratory Exam: NORMAL BREATHING PATTERN - Cardiovascular Exam Cardiovascular Exam: REGULAR RHYTHM - GI/Abdominal Exam GI & Abdominal Exam: Normal Bowel Sounds Assessment and Plan - Assessment and Plan (Free Text) Assessment: S/P Acute Respiratory Failure Asystole Anoxic encephalopathy Intubated Tracheostomy?? Aspiration?? HX COPD Klebsiella Pneumonia MDR ABX IVF Steroids Pulmonary ID S/P Asystole 2 to Pulmonary dx (S/P V-fib/ V-tach 2 to pulmonary dx) A-fib CAD S/P CABG Amiodorone Cardiology SMITA/ CKD 2 to Sepsis acute ischemia ATN HX Hyperkalemia and hypokalemia etiol ?? Adrenal insufficiency?? Hx of Orthostatic Hypotension at [place] ACTH Cortisol level ?? Florinef d/c Endo and Nephrology Consult Swallowing?? aspiration?? PEG Jevity and oral feedings Hx s/p + C-diff + Ag -toxin Hx Dec oral intake improved on Megace Sick Euthyroid syndrome Endo Anemia etiol? Chronic dx CKD Transfusion Chronic chest wall pain Pain meds
[2016-12-04] MEDS: metroNIDAZOLE 500mg/100ml NS 100 ML IVPB SCH ×3 (01:00→17:00)
[2016-12-04 06:15] LABS: ARTERIAL BLOOD GAS HCO3 25.9 mmol/L (21-28); ARTERIAL BLOOD GAS MODE CPAP/PS; ARTERIAL BLOOD GAS O2 CAPACITY 11.3 mL/dL (16-24); ARTERIAL BLOOD GAS O2 CONTENT 11.4 ML/dL (15-23); ARTERIAL BLOOD GAS PO2 130 mm/Hg (80-100); ARTERIAL BLOOD HGB O2 SAT 97.7 % (95.0-98.0); CARBOXYHEMOGLOBIN 1.9 % (0.5-1.5); HHB -0.8 % (0.0-5.0); METHEMOGLOBIN 1.3 % (0.0-3.0)
[2016-12-04] MEDS ORDERED: metroNIDAZOLE 500mg/100ml NS IVPB ONE (09:00)
[2016-12-04] MEDS ORDERED: Albuterol-Ipratrop 3 mg / 0.5 (3 ml) UD ONE (09:00)
[2016-12-04] MEDS ORDERED: Vancomycin 500 mg (Oral/Rectal USE) ONE (09:00)
[2016-12-04] MEDS ORDERED: Sucralfate 1 gm/10 ml Oral Susp UD ONE (09:00)
[2016-12-04] MEDS ORDERED: Silver Sulfadiazine 1% CREAM (50 gm) ONE (09:00)
--- NOTE | 2016-12-04 09:54 | RAD ---
HISTORY: Intubated. COMPARISON: 12/03/2016 FINDINGS: LUNGS: No opacity at right base persists unchanged, grossly. No definite consolidation elsewhere. PLEURA: No significant pleural effusion identified, no pneumothorax apparent. CARDIOVASCULAR: Sternotomy wires. Normal heart size. CABG. Right IJ multi lumen central venous catheter. OSSEOUS STRUCTURES: No significant abnormalities. VISUALIZED UPPER ABDOMEN: Normal. OTHER FINDINGS: None. IMPRESSION: Persistent right basilar infiltrate. Otherwise no acute change.
[2016-12-04] MEDS: Albuterol-Ipratrop 3 mg / 0.5 (3 ml) UD INH SCH (19:47)
--- NOTE | 2016-12-04 20:55 | CP.PCM.PN ---
Subjective - Date & Time of Evaluation Date of Evaluation: 12/04/16 Time of Evaluation: 22:22 - Subjective Subjective: d/w family and Neurology Objective - Vital Signs/Intake and Output Vital Signs (last 24 hours): Temp Pulse Resp BP Pulse Ox 98.2 F 87 23 125/78 100 12/04/16 19:54 12/04/16 19:54 12/04/16 19:54 12/04/16 19:54 12/04/16 19:54 - Medications Medications: Current Medications Acetaminophen (Tylenol 650mg/20.3ml Solution Ud) 650 mg PEG Q4 PRN PRN Reason: Pain, moderate (4-7) Last Admin: 11/25/16 11:50 Dose: 650 mg Acetaminophen (Tylenol 650mg/20.3ml Solution Ud) 650 mg PEG Q4 PRN PRN Reason: Fever >100.4 F Last Admin: 11/29/16 00:04 Dose: 650 mg Albuterol Sulfate (Albuterol 0.083% Inhal Mary (2.5 Mg/3 Ml) Ud) 2.5 mg INH RQ4 PRN PRN Reason: Shortness of Breath Last Admin: 11/23/16 03:48 Dose: 2.5 mg Albuterol/Ipratropium (Duoneb 3 Mg/0.5 Mg (3 Ml) Ud) 3 ml INH RQ6 [facility] Last Admin: 12/04/16 19:47 Dose: 3 ml Amiodarone HCl (Cordarone) 200 mg PEG DAILY [facility] Last Admin: 12/03/16 08:46 Dose: 200 mg Collagenase (Santyl) 1 applic TOP 0900,2100 [facility] Last Admin: 12/03/16 21:36 Dose: 1 applic Dimethicone (Proshield Plus Skin Protectant) 1 applic TOP 0900,2100 [facility] Last Admin: 12/03/16 21:35 Dose: 1 applic Ferrous Sulfate (Feosol Liq) 450 mg PEG DAILY [facility] Last Admin: 12/03/16 08:47 Dose: 450 mg Metronidazole (Flagyl 500mg/100ml Ns) 100 mls @ 100 mls/hr IVPB Q8 [facility] Last Admin: 12/03/16 16:15 Dose: 100 mls/hr Metoclopramide HCl (Reglan) 10 mg PEG HS [facility] Last Admin: 12/03/16 21:35 Dose: 10 mg Metoprolol Tartrate (Lopressor) 25 mg PO Q12 [facility] Last Admin: 12/03/16 21:35 Dose: 25 mg Ondansetron HCl (Zofran Odt) 4 mg PEG Q8 [facility] Last Admin: 11/24/16 16:40 Dose: 4 mg Pantoprazole Sodium (Protonix Susp) 40 mg PEG DAILY [facility] Last Admin: 12/03/16 08:47 Dose: 40 mg Silver Sulfadiazine (Silvadene 1% 50 Gm) 1 applic TOP 0900,2100 [facility] Last Admin: 12/03/16 21:36 Dose: 1 applic Sucralfate (Carafate Oral Susp) 1 gm PEG TID [facility] Last Admin: 12/03/16 16:14 Dose: 1 gm Vancomycin HCl (Vancocin (Oral/Rectal Use)) 125 mg PO Q8 [facility] Last Admin: 12/03/16 16:14 Dose: 125 mg - Labs Labs: 12/03/16 06:00 12/03/16 06:00 PT 12.7 SECONDS (9.6-11.2) H 11/24/16 06:00 INR 1.22 (0.92-1.08) H 11/24/16 06:00 APTT 33.9 SECONDS (23.3-32.5) H D 11/24/16 06:00 - Respiratory Exam Respiratory Exam: NORMAL BREATHING PATTERN - Cardiovascular Exam Cardiovascular Exam: REGULAR RHYTHM - GI/Abdominal Exam GI & Abdominal Exam: Normal Bowel Sounds Assessment and Plan - Assessment and Plan (Free Text) Assessment: S/P Acute Respiratory Failure Asystole Anoxic encephalopathy Intubated Tracheostomy?? Aspiration?? HX COPD Klebsiella Pneumonia MDR ABX IVF Steroids Pulmonary ID S/P Asystole 2 to Pulmonary dx (S/P V-fib/ V-tach 2 to pulmonary dx) A-fib CAD S/P CABG Amiodorone Cardiology SMITA/ CKD 2 to Sepsis acute ischemia ATN HX Hyperkalemia and hypokalemia etiol ?? Adrenal insufficiency?? Hx of Orthostatic Hypotension at [place] ACTH Cortisol level ?? Florinef d/c Endo and Nephrology Consult Swallowing?? aspiration?? PEG Jevity and oral feedings Hx s/p + C-diff + Ag -toxin Hx Dec oral intake improved on Megace Sick Euthyroid syndrome Endo Anemia etiol? Chronic dx CKD Transfusion Chronic chest wall pain Pain meds
[2016-12-04] MEDS: Santyl Collagenase OINTMENT TOP SCH ×2 (21:11→21:29)
[2016-12-04] MEDS: Proshield Plus GEL TOP SCH ×2 (21:11→21:27)
[2016-12-04] MEDS: Silver Sulfadiazine 1% CREAM (50 gm) TOP SCH ×2 (21:12→21:29)
[2016-12-04] MEDS: Sucralfate 1 gm/10 ml Oral Susp UD PEG SCH ×2 (21:18→21:20)
[2016-12-04] MEDS: Ferrous Sulfate 300 mg/5 mL Liq UD PEG SCH (21:22)
[2016-12-04] MEDS: Pantoprazole 40 mg Susp UD PEG SCH (21:28)
[2016-12-04] MEDS: Vancomycin 500 mg (Oral/Rectal USE) PO SCH ×3 (21:30→21:32)
--- NOTE | 2016-12-04 21:37 | PN ---
DATE: 12/04/2016 LOCATION: In ICU, room 423. SUBJECTIVE: This is a 71-year-old male with recent acute exacerbation of COPD with concomitant aspir ation pneumonia and is currently undergoing IV antibiotic management and also being followed closely for metabolic management. LABORATORY DATA: His glycemic levels are much improved at this time and the glucose values have rang ed from 94 to 133 mg/dL. The latest chemistries showed a BUN of 121, sodium 141, potassium 4.6, chlo ride 108, CO2 22, glucose 113, and creatinine 2.4. So, at this time, he has been taken off IV steroid therapy as noted, and should expect normalization of his glucose values accordingly. We will obtain serial chemistries and supplement accordingly as n eeded. We will follow. Anabella Sebastian MD cc: [phone] TT: 12/04/2016 21:36:48 Confirmation # [id number] Dictation # [id number]
[2016-12-04 23:16] LABS: HEMATOCRIT 24.8 % (35.0-51.0); MEAN CELL VOLUME 88.7 fl (80.0-94.0); MEAN CORPUSCULAR HEMOGLOBIN 27.9 pg (27.0-31.0); MEAN CORPUSCULAR HGB CONC 31.4 g/dL (33.0-37.0); RED CELL DISTRIBUTION WIDTH 16.4 % (11.5-14.5); WHITE BLOOD COUNT 15.1 K/uL (4.8-10.8)
[2016-12-05] MEDS: metroNIDAZOLE 500mg/100ml NS 100 ML IVPB SCH ×3 (00:28→16:23)
[2016-12-05] MEDS: Vancomycin 500 mg (Oral/Rectal USE) PO SCH ×3 (00:29→16:23)
[2016-12-05] MEDS: Albuterol-Ipratrop 3 mg / 0.5 (3 ml) UD INH SCH ×4 (01:01→19:19)
[2016-12-05 05:06] LABS: HEMATOCRIT 22.1 % (35.0-51.0); MEAN CELL VOLUME 88.7 fl (80.0-94.0); MEAN CORPUSCULAR HEMOGLOBIN 28.9 pg (27.0-31.0); MEAN CORPUSCULAR HGB CONC 32.6 g/dL (33.0-37.0); RED CELL DISTRIBUTION WIDTH 16.2 % (11.5-14.5); WHITE BLOOD COUNT 10.7 K/uL (4.8-10.8)
[2016-12-05 05:16] LABS: CALCIUM 7.7 mg/dL (8.4-10.2); POTASSIUM 3.8 MMOL/L (3.6-5.0)
[2016-12-05 05:56] LABS: ABG ALLEN TEST YES; ARTERIAL BLOOD GAS HCO3 25.3 mmol/L (21-28); ARTERIAL BLOOD GAS MODE CPAP/PSV; ARTERIAL BLOOD GAS O2 CONTENT 10.9 ML/dL (15-23); ARTERIAL BLOOD GAS PH 7.49 (7.35-7.45); ARTERIAL BLOOD GAS PO2 74 mm/Hg (80-100); ARTERIAL BLOOD HGB O2 SAT 95.1 % (95.0-98.0); ATERIAL BLOOD GAS PEEP 5; CARBOXYHEMOGLOBIN 1.9 % (0.5-1.5); HHB 0.9 % (0.0-5.0); METHEMOGLOBIN 2.1 % (0.0-3.0)
--- NOTE | 2016-12-05 08:13 | CP.PCM.PN ---
Subjective - Date & Time of Evaluation Date of Evaluation: 12/05/16 Time of Evaluation: 08:09 - Subjective Subjective: Clinically remains unchanged. Unresponsive to verbal or tactile stimuli. Remains on CPAP/PS ventilation with spontaneous respirations 20BPM. Oxygenation is good, mildly alkalotic ABG (respiratory). CXR today is unchanged with hazy lung bases, elevated left hemidiaphragm, no consolidation. He remains afebrile, fair urine output. Labs noted, Hgb remains low (7.2). Transfused one more unit PRBC's on the . Small volume of garcia secretions suctioned from the ETT. Breath sounds are present bilaterally with sonorous rhonchi in LL's (L>R). No audible wheezes or bronchial breathing. No dullness on percussion anteriorly. No subcut emphysema. Surgical consult placed for tracheostomy. EEG done, report pending. Renal function stable, BUN/creatinine are slowly decreasing. On IV Flagyl and Vanco via PEG. Prognosis for neurological recovery seems remote. Once tracheostomy is done, hopefully he can be weaned to a trach collar. Objective - Vital Signs/Intake and Output Vital Signs (last 24 hours): Temp Pulse Resp BP Pulse Ox 98.2 F 96 H 25 H 128/77 100 12/05/16 04:00 12/05/16 06:00 12/05/16 06:00 12/05/16 06:00 12/05/16 06:00 Intake and Output: 12/04/16 12/05/16 23:59 11:59 Intake Total 430 905 Output Total 1 900 Balance 429 5 - Medications Medications: Current Medications Acetaminophen (Tylenol 650mg/20.3ml Solution Ud) 650 mg PEG Q4 PRN PRN Reason: Pain, moderate (4-7) Last Admin: 11/25/16 11:50 Dose: 650 mg Acetaminophen (Tylenol 650mg/20.3ml Solution Ud) 650 mg PEG Q4 PRN PRN Reason: Fever >100.4 F Last Admin: 11/29/16 00:04 Dose: 650 mg Albuterol Sulfate (Albuterol 0.083% Inhal Mary (2.5 Mg/3 Ml) Ud) 2.5 mg INH RQ4 PRN PRN Reason: Shortness of Breath Last Admin: 11/23/16 03:48 Dose: 2.5 mg Albuterol/Ipratropium (Duoneb 3 Mg/0.5 Mg (3 Ml) Ud) 3 ml INH RQ6 [facility] Last Admin: 12/05/16 07:21 Dose: 3 ml Amiodarone HCl (Cordarone) 200 mg PEG DAILY [facility] Last Admin: 12/04/16 09:00 Dose: 200 mg Collagenase (Santyl) 1 applic TOP 0900,2100 [facility] Last Admin: 12/04/16 21:29 Dose: 1 applic Dimethicone (Proshield Plus Skin Protectant) 1 applic TOP 0900,2100 [facility] Last Admin: 12/04/16 21:27 Dose: 1 applic Ferrous Sulfate (Feosol Liq) 450 mg PEG DAILY [facility] Last Admin: 12/04/16 21:22 Dose: 450 mg Metronidazole (Flagyl 500mg/100ml Ns) 100 mls @ 100 mls/hr IVPB Q8 [facility] Last Admin: 12/05/16 00:28 Dose: 100 mls/hr Metoclopramide HCl (Reglan) 10 mg PEG HS [facility] Last Admin: 12/04/16 21:12 Dose: 10 mg Metoprolol Tartrate (Lopressor) 25 mg PO Q12 [facility] Last Admin: 12/04/16 21:13 Dose: 25 mg Ondansetron HCl (Zofran Odt) 4 mg PEG Q8 [facility] Last Admin: 11/24/16 16:40 Dose: 4 mg Pantoprazole Sodium (Protonix Susp) 40 mg PEG DAILY [facility] Last Admin: 12/04/16 21:28 Dose: 40 mg Silver Sulfadiazine (Silvadene 1% 50 Gm) 1 applic TOP 0900,2100 [facility] Last Admin: 12/04/16 21:29 Dose: 1 applic Sucralfate (Carafate Oral Susp) 1 gm PEG TID [facility] Last Admin: 12/04/16 21:20 Dose: 1 gm Vancomycin HCl (Vancocin (Oral/Rectal Use)) 125 mg PO Q8 [facility] Last Admin: 12/05/16 00:29 Dose: 125 mg - Labs Labs: 12/05/16 04:20 12/05/16 04:20 PT 12.7 SECONDS (9.6-11.2) H 11/24/16 06:00 INR 1.22 (0.92-1.08) H 11/24/16 06:00 APTT 33.9 SECONDS (23.3-32.5) H D 11/24/16 06:00 Assessment and Plan (1) Respiratory failure with hypercapnia Status: Resolved (2) Endotracheally intubated Status: Acute (3) On mechanically assisted ventilation Status: Acute (4) Pneumonia Status: Resolved (5) COPD exacerbation Status: Resolved
--- NOTE | 2016-12-05 08:35 | CP.PCM.CON ---
History of Present Illness - History of Present Illness History of Present Illness: General Surgery - Dr. Snell Consult re- Tracheostomy 71 yo M w/ extensive cardiac hx and severe COPD who presented with Acute Resp Failure presumably d/t aspiration as despite having a PEG tube in place pt does [facility]. Pt was admitted on 11/22 and he required intubation on 11/24. He has had several code blues during admission. At this point pt has been weaned on the vent to CPAP on 40% fio2, 5 Peep, however is unable to wean off vent d/t anoxic encephalopathy. Thus far the family has wished for all measures to be taken in his care and he remains a full code. EEG was being done last night to further assess the neuro-status. PMH: HTN, CAD, Afib, CHF, DM, COPD, Hypothyroid, BPH PSH: CABG (1994), PEG Meds as per chart Allergic to Gemfibrozil and morphine Review of Systems - Review of Systems Systems not reviewed;Unavailable: Altered Mental Status Past Patient History - Infectious Disease Hx of Infectious Diseases: None - Tetanus Immunizations Tetanus Immunization: Unknown - Past Medical History & Family History Past Medical History?: Yes - Past Social History Smoking Status: Former Smoker - CARDIAC Hx Atrial Fibrillation: Yes Hx Cardia Arrhythmia: Yes Hx Congestive Heart Failure: Yes Hx Hypercholesterolemia: Yes Hx Hypertension: Yes Hx Peripheral Edema: Yes - PULMONARY Hx Asthma: Yes Hx Bronchitis: Yes Hx Chronic Obstructive Pulmonary Disease (COPD): Yes Hx Emphysema: Yes Hx Pneumonia: Yes - NEUROLOGICAL Hx Neurological Disorder: No - HEENT Hx Cataracts: Yes (right eye) - RENAL Hx Chronic Kidney Disease: No - ENDOCRINE/METABOLIC Hx Hypothyroidism: No - HEMATOLOGICAL/ONCOLOGICAL Hx Anemia: Yes Hx Human Immunodeficiency Virus (HIV): No - INTEGUMENTARY Hx Psoriasis: Yes - MUSCULOSKELETAL/RHEUMATOLOGICAL Hx Arthritis: Yes Hx Rheumatoid Arthritis: No - GASTROINTESTINAL Hx Diverticulitis: Yes - GENITOURINARY/GYNECOLOGICAL Hx Prostate Problems: Yes (BPH) - PSYCHIATRIC Hx Anxiety: Yes - SURGICAL HISTORY Hx Coronary Artery Bypass Graft: Yes (1994) Hx Coronary Stent: Yes (2000) - ANESTHESIA Hx Anesthesia: Yes Hx Anesthesia Reactions: No Hx Malignant Hyperthermia: No Has any member of the family had a problem w/ anesthesia?: No Meds Allergies/Adverse Reactions: Allergies Allergy/AdvReac Type Severity Reaction Status Date / Time gemfibrozil [From Lopid] Allergy RASH Verified 11/22/16 07:55 morphine Allergy SHORTNESS Verified 11/22/16 07:55 OF BREATH - Medications Medications: Current Medications Acetaminophen (Tylenol 650mg/20.3ml Solution Ud) 650 mg PEG Q4 PRN PRN Reason: Pain, moderate (4-7) Last Admin: 11/25/16 11:50 Dose: 650 mg Acetaminophen (Tylenol 650mg/20.3ml Solution Ud) 650 mg PEG Q4 PRN PRN Reason: Fever >100.4 F Last Admin: 11/29/16 00:04 Dose: 650 mg Albuterol Sulfate (Albuterol 0.083% Inhal Mary (2.5 Mg/3 Ml) Ud) 2.5 mg INH RQ4 PRN PRN Reason: Shortness of Breath Last Admin: 11/23/16 03:48 Dose: 2.5 mg Albuterol/Ipratropium (Duoneb 3 Mg/0.5 Mg (3 Ml) Ud) 3 ml INH RQ6 [facility] Last Admin: 12/05/16 07:21 Dose: 3 ml Amiodarone HCl (Cordarone) 200 mg PEG DAILY [facility] Last Admin: 12/04/16 09:00 Dose: 200 mg Collagenase (Santyl) 1 applic TOP 0900,2100 [facility] Last Admin: 12/04/16 21:29 Dose: 1 applic Dimethicone (Proshield Plus Skin Protectant) 1 applic TOP 0900,2100 [facility] Last Admin: 12/04/16 21:27 Dose: 1 applic Ferrous Sulfate (Feosol Liq) 450 mg PEG DAILY [facility] Last Admin: 12/04/16 21:22 Dose: 450 mg Metronidazole (Flagyl 500mg/100ml Ns) 100 mls @ 100 mls/hr IVPB Q8 [facility] Last Admin: 12/05/16 00:28 Dose: 100 mls/hr Metoclopramide HCl (Reglan) 10 mg PEG HS [facility] Last Admin: 12/04/16 21:12 Dose: 10 mg Metoprolol Tartrate (Lopressor) 25 mg PO Q12 [facility] Last Admin: 12/04/16 21:13 Dose: 25 mg Ondansetron HCl (Zofran Odt) 4 mg PEG Q8 [facility] Last Admin: 11/24/16 16:40 Dose: 4 mg Pantoprazole Sodium (Protonix Susp) 40 mg PEG DAILY [facility] Last Admin: 12/04/16 21:28 Dose: 40 mg Silver Sulfadiazine (Silvadene 1% 50 Gm) 1 applic TOP 0900,2100 [facility] Last Admin: 12/04/16 21:29 Dose: 1 applic Sucralfate (Carafate Oral Susp) 1 gm PEG TID [facility] Last Admin: 12/04/16 21:20 Dose: 1 gm Vancomycin HCl (Vancocin (Oral/Rectal Use)) 125 mg PO Q8 [facility] Last Admin: 12/05/16 00:29 Dose: 125 mg Physical Exam - Constitutional Appears: No Acute Distress, Other (unresponsive) - Head Exam Head Exam: ATRAUMATIC, NORMAL INSPECTION, NORMOCEPHALIC - Respiratory Exam Respiratory Exam: NORMAL BREATHING PATTERN Additional comments: on Cpap, ETT in place, 40% FIo2, 5 Peep - Cardiovascular Exam Cardiovascular Exam: Tachycardia - GI/Abdominal Exam GI & Abdominal Exam: Soft. absent: Distended Additional comments: PEG in place with tube feeds - Neurological Exam Additional comments: unresponsive, off sedation - Skin Skin Exam: Dry, Intact Results - Vital Signs Recent Vital Signs: Last Vital Signs Temp 97.9 F 12/05/16 08:00 Pulse 95 H 12/05/16 08:00 Resp 25 H 12/05/16 08:00 BP 123/73 12/05/16 08:00 Pulse Ox 100 12/05/16 08:00 - Labs Result Diagrams: 12/05/16 04:20 12/05/16 04:20 Labs: Laboratory Results - last 24 hr 12/04/16 12/04/16 12/04/16 04:00 10:53 15:57 WBC 15.1 H RBC 2.79 L Hgb 7.8 L Hct 24.8 L MCV 88.7 MCH 27.9 MCHC 31.4 L RDW 16.4 H Plt Count 134 pCO2 pO2 HCO3 ABG pH ABG Total CO2 ABG O2 Saturation ABG O2 Content ABG Base Excess ABG Hemoglobin ABG Carboxyhemoglobin POC ABG HHb (Measured) ABG Methemoglobin ABG O2 Capacity Emmanuel Test A-a O2 Difference Hgb O2 Saturation Vent Mode FiO2 PEEP Pressure Support Sodium Potassium Chloride Carbon Dioxide Anion Gap BUN Creatinine Est GFR ( Amer) Est GFR (Non-Af Amer) POC Glucose (mg/dL) 133 H 94 Random Glucose Calcium 12/04/16 12/05/16 12/05/16 21:43 04:20 04:20 WBC 10.7 RBC 2.49 L Hgb 7.2 L Hct 22.1 L MCV 88.7 MCH 28.9 MCHC 32.6 L RDW 16.2 H Plt Count 128 L pCO2 pO2 HCO3 ABG pH ABG Total CO2 ABG O2 Saturation ABG O2 Content ABG Base Excess ABG Hemoglobin ABG Carboxyhemoglobin POC ABG HHb (Measured) ABG Methemoglobin ABG O2 Capacity Emmanuel Test A-a O2 Difference Hgb O2 Saturation Vent Mode FiO2 PEEP Pressure Support Sodium 139 Potassium 3.8 Chloride 108 H Carbon Dioxide 23 Anion Gap 12 BUN 101 H* Creatinine 2.1 H Est GFR ( Amer) 38 Est GFR (Non-Af Amer) 31 POC Glucose (mg/dL) 126 H Random Glucose 82 Calcium 7.7 L 12/05/16 05:44 WBC RBC Hgb Hct MCV MCH MCHC RDW Plt Count pCO2 31 L pO2 74 L HCO3 25.3 ABG pH 7.49 H ABG Total CO2 24.6 ABG O2 Saturation 99.1 H ABG O2 Content 10.9 L ABG Base Excess 0.5 ABG Hemoglobin 8.1 L ABG Carboxyhemoglobin 1.9 H POC ABG HHb (Measured) 0.9 ABG Methemoglobin 2.1 ABG O2 Capacity 11.0 L Emmanuel Test Yes A-a O2 Difference 172.0 Hgb O2 Saturation 95.1 Vent Mode Cpap/psv FiO2 40.0 PEEP 5 Pressure Support 10 Sodium Potassium Chloride Carbon Dioxide Anion Gap BUN Creatinine Est GFR ( Amer) Est GFR (Non-Af Amer) POC Glucose (mg/dL) Random Glucose Calcium Assessment & Plan - Assessment and Plan (Free Text) Assessment: 71 yo M w/ extensive pmh, with acute respiratory failure and anoxic encephalopathy requiring intubation since 11/24 -F/U EEG and Neuro eval. -Will DW Family regarding wishes -If family wishes to pursue tracheostomy will plan for early next week JEREMIAS Plummer PGY2
[2016-12-05] MEDS: Sucralfate 1 gm/10 ml Oral Susp UD PEG SCH ×3 (08:45→16:22)
[2016-12-05] MEDS: Ferrous Sulfate 300 mg/5 mL Liq UD PEG SCH (08:50)
[2016-12-05] MEDS: Proshield Plus GEL TOP SCH ×3 (08:51→20:37)
[2016-12-05] MEDS: Santyl Collagenase OINTMENT TOP SCH ×2 (08:51→20:30)
[2016-12-05] MEDS: Pantoprazole 40 mg Susp UD PEG SCH (08:51)
[2016-12-05] MEDS: Silver Sulfadiazine 1% CREAM (50 gm) TOP SCH ×2 (08:51→20:36)
--- NOTE | 2016-12-05 08:51 | CP.CCUPN ---
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 No recurrent Fever spikes since 11/28/16, BP 123/73, HR 95 in A Fib. No iVFs started, but tube feed water flushes are 200ml Q4h. 24H I/Os = 1335/ 901ml. No gross seizure activity reported. ROS: All pertinent Nursing notes and all other 10+ systems reviewed: otherwise non-obtainable and as above. PMSFH: No other new pertinent information relative to current medical problems noted. No other distress noted: EXAM- HEENT: no icterus, pupils midline, equal and reactive, no nystagmus, occasional mild chewing activity noted. NECK: no visible JVD, supple, carotids equal upstroke bilat/no bruits CHEST: decreased BS bases, no wheezes audible. HEART: regular, distant, S1S2, no murmur audible, no rubs. ABD: soft, flat, PEG intact, no increased distention, no focal tenderness, no HSM. BS hypoactive. EXT: trace LE edema, no peripheral/ digital cyanosis, no calf tenderness or palpable cords, distal pulses intact and symmetrical NEURO: flaccid x 4, no purposeful motor activity. SKIN: no rashes LABS: 7.49/31/ WBC= 10.7 HGB= 7.2 PLTs = 128K Na= 139 K= 3.8 HCO3= 23 BUN/Cr= 101/2.1 BS=82 CXR: same bibasilar interstitial markings noted, no worse compared to films form the past 2 days. ETT position OK above jung (my interp). Assessment: 1. Wes-Asystole Code 2 Retained secretions /Cardiomyopathy 2. Acute Resp Insuff, r/o 2 Chronic Aspiration events due to PO meals with PEG feeds. 3. Coma 2 Anoxic Encephalopathy 4. Acute Anemia 2 non-Blood loss and Chronic Disease state. 5. Acute on Chronic Kidney Disease III, r/o ATN from recent Code Blue. PLAN: 1. Tolerated MV weans with a stable spontaneous breathing pattern, I would not extubate him nor should he be extubated in my opinion given his comatose state and inability to self-protect airway and self-mobilize secretions. He is now day #11 on MV and should be considered for early tracheostomy unless family disagrees. 2. Hemodynamics have been stable and lactate levels have normalized days ago. 3. He remains anemic since last PRBCS (1 unit) given on 11/26/16 nad again on 12/03/16. Though hemodynamics and oxygenation are stable, will agree to PRBCS again today. No active bleeding evident, however-disproportionate BUN/CR levels may be reflective of occult GI tract bleeding. BUN levels are improving with additional fluid hydration. 4. Vanco PO and IV Flagyl are now the current antibiotics as per ID. 5. Discussed waning chances of any neurologic recovery as days progress without any signs of purposeful, interactive movements. Await sons decision on need for Trach, (and PICC ) should he decide to desire more time be given to patient while waiting for any signs of neurologic recovery. Disposition to an LTAC facility also discussed with family.
--- NOTE | 2016-12-05 10:47 | CP.PCM.PN ---
Subjective - Date & Time of Evaluation Date of Evaluation: 12/05/16 Time of Evaluation: 10:00 - Subjective Subjective: UNRESPONSIVE Objective - Vital Signs/Intake and Output Vital Signs (last 24 hours): Temp Pulse Resp BP Pulse Ox 97.9 F 94 H 25 H 123/73 100 12/05/16 08:00 12/05/16 08:50 12/05/16 08:00 12/05/16 08:50 12/05/16 08:00 Intake and Output: 12/05/16 12/05/16 06:59 18:59 Intake Total 1335 90 Output Total 901 Balance 434 90 - Medications Medications: Current Medications Acetaminophen (Tylenol 650mg/20.3ml Solution Ud) 650 mg PEG Q4 PRN PRN Reason: Pain, moderate (4-7) Last Admin: 11/25/16 11:50 Dose: 650 mg Acetaminophen (Tylenol 650mg/20.3ml Solution Ud) 650 mg PEG Q4 PRN PRN Reason: Fever >100.4 F Last Admin: 11/29/16 00:04 Dose: 650 mg Albuterol Sulfate (Albuterol 0.083% Inhal Mary (2.5 Mg/3 Ml) Ud) 2.5 mg INH RQ4 PRN PRN Reason: Shortness of Breath Last Admin: 11/23/16 03:48 Dose: 2.5 mg Albuterol/Ipratropium (Duoneb 3 Mg/0.5 Mg (3 Ml) Ud) 3 ml INH RQ6 [facility] Last Admin: 12/05/16 07:21 Dose: 3 ml Amiodarone HCl (Cordarone) 200 mg PEG DAILY [facility] Last Admin: 12/05/16 08:48 Dose: 200 mg Collagenase (Santyl) 1 applic TOP 0900,2100 [facility] Last Admin: 12/05/16 08:51 Dose: 1 applic Dimethicone (Proshield Plus Skin Protectant) 1 applic TOP 0900,2100 [facility] Last Admin: 12/05/16 08:51 Dose: 1 applic Ferrous Sulfate (Feosol Liq) 450 mg PEG DAILY [facility] Last Admin: 12/05/16 08:50 Dose: 450 mg Metronidazole (Flagyl 500mg/100ml Ns) 100 mls @ 100 mls/hr IVPB Q8 [facility] Last Admin: 12/05/16 08:50 Dose: 100 mls/hr Metoclopramide HCl (Reglan) 10 mg PEG HS [facility] Last Admin: 12/04/16 21:12 Dose: 10 mg Metoprolol Tartrate (Lopressor) 25 mg PO Q12 [facility] Last Admin: 12/05/16 08:50 Dose: 25 mg Ondansetron HCl (Zofran Odt) 4 mg PEG Q8 [facility] Last Admin: 11/24/16 16:40 Dose: 4 mg Pantoprazole Sodium (Protonix Susp) 40 mg PEG DAILY [facility] Last Admin: 12/05/16 08:51 Dose: 40 mg Silver Sulfadiazine (Silvadene 1% 50 Gm) 1 applic TOP 0900,2100 [facility] Last Admin: 12/05/16 08:51 Dose: 1 applic Sucralfate (Carafate Oral Susp) 1 gm PEG TID [facility] Last Admin: 12/05/16 08:45 Dose: 1 gm Vancomycin HCl (Vancocin (Oral/Rectal Use)) 125 mg PO Q8 [facility] Last Admin: 12/05/16 08:51 Dose: 125 mg - Labs Labs: 12/05/16 04:20 12/05/16 04:20 PT 12.7 SECONDS (9.6-11.2) H 11/24/16 06:00 INR 1.22 (0.92-1.08) H 11/24/16 06:00 APTT 33.9 SECONDS (23.3-32.5) H D 11/24/16 06:00 - Respiratory Exam Respiratory Exam: Rales, Rhonchi - Cardiovascular Exam Cardiovascular Exam: Irregular Rhythm, +S1, +S2 - Additional Findings Additional findings: SIDE LASTER TACK ATRIAL FIBRILLATION WITH MVR PULNONARY AND TANNING SOLUTION MAKER'S NOTES REVIEWED Assessment and Plan - Assessment and Plan (Free Text) Assessment: CAD ATRIAL FIBRILLATION COPD WITH RESPIRATORY FAILURE POOR PROGNOSIS Plan: CONTINUE METOPROLOL, AMIODARONE, MV FAMILY TO DECIDE ON TRACH AND PICC
--- NOTE | 2016-12-05 12:33 | PN ---
DATE: 12/05/2016 LOCATION: ICU, room 423. SUBJECTIVE: This is a 71-year-old male who remains endotracheally intubated and nonresponsive and is now being followed closely for metabolic management. He has ongoing IV antibiotics for management o f acute pneumonitis, possibly recurrent aspiration pneumonia. He also has severe underlying cardiomy opathy with recent asystole and supervening anoxic encephalopathy and has remained unresponsive at th is time. His glycemic levels have remained near optimal at this time and the latest chemistries show ed a BUN of 101, sodium 139, potassium 3.8, chloride 108, CO2 23, glucose 82 and creatinine 2.1. His glucose levels have ranged from 94-126 and 145 mg/dL. No basal insulin requirements are needed at t his time. We will obtain serial chemistries and supplement accordingly as needed. We will follow. Anabella Sebastian MD cc: [id number] TT: 12/05/2016 12:33:05 Confirmation # [id number] Dictation # [id number] brandon
--- NOTE | 2016-12-05 12:45 | CP.PCM.PN ---
Subjective - Date & Time of Evaluation Date of Evaluation: 12/05/16 Time of Evaluation: 09:00 - Subjective Subjective: comatose on vent afebrile less diarrhea c diff negative off IV Tygacil and WBC trending down for trach and PEG Objective - Vital Signs/Intake and Output Vital Signs (last 24 hours): Temp Pulse Resp BP Pulse Ox 97.8 F 91 H 26 H 133/79 100 12/05/16 12:00 12/05/16 12:00 12/05/16 12:00 12/05/16 12:00 12/05/16 12:00 Intake and Output: 12/05/16 12/05/16 06:59 18:59 Intake Total 1335 480 Output Total 901 Balance 434 480 - Medications Medications: Current Medications Acetaminophen (Tylenol 650mg/20.3ml Solution Ud) 650 mg PEG Q4 PRN PRN Reason: Pain, moderate (4-7) Last Admin: 11/25/16 11:50 Dose: 650 mg Acetaminophen (Tylenol 650mg/20.3ml Solution Ud) 650 mg PEG Q4 PRN PRN Reason: Fever >100.4 F Last Admin: 11/29/16 00:04 Dose: 650 mg Albuterol Sulfate (Albuterol 0.083% Inhal Mary (2.5 Mg/3 Ml) Ud) 2.5 mg INH RQ4 PRN PRN Reason: Shortness of Breath Last Admin: 11/23/16 03:48 Dose: 2.5 mg Albuterol/Ipratropium (Duoneb 3 Mg/0.5 Mg (3 Ml) Ud) 3 ml INH RQ6 [facility] Last Admin: 12/05/16 07:21 Dose: 3 ml Amiodarone HCl (Cordarone) 200 mg PEG DAILY [facility] Last Admin: 12/05/16 08:48 Dose: 200 mg Collagenase (Santyl) 1 applic TOP 0900,2100 [facility] Last Admin: 12/05/16 08:51 Dose: 1 applic Dimethicone (Proshield Plus Skin Protectant) 1 applic TOP 0900,2100 [facility] Last Admin: 12/05/16 08:51 Dose: 1 applic Ferrous Sulfate (Feosol Liq) 450 mg PEG DAILY [facility] Last Admin: 12/05/16 08:50 Dose: 450 mg Metronidazole (Flagyl 500mg/100ml Ns) 100 mls @ 100 mls/hr IVPB Q8 [facility] Last Admin: 12/05/16 08:50 Dose: 100 mls/hr Metoclopramide HCl (Reglan) 10 mg PEG HS [facility] Last Admin: 12/04/16 21:12 Dose: 10 mg Metoprolol Tartrate (Lopressor) 25 mg PO Q12 [facility] Last Admin: 12/05/16 08:50 Dose: 25 mg Ondansetron HCl (Zofran Odt) 4 mg PEG Q8 [facility] Last Admin: 11/24/16 16:40 Dose: 4 mg Pantoprazole Sodium (Protonix Susp) 40 mg PEG DAILY [facility] Last Admin: 12/05/16 08:51 Dose: 40 mg Silver Sulfadiazine (Silvadene 1% 50 Gm) 1 applic TOP 0900,2100 [facility] Last Admin: 12/05/16 08:51 Dose: 1 applic Sucralfate (Carafate Oral Susp) 1 gm PEG TID [facility] Last Admin: 12/05/16 12:24 Dose: 1 gm Vancomycin HCl (Vancocin (Oral/Rectal Use)) 125 mg PO Q8 [facility] Last Admin: 12/05/16 08:51 Dose: 125 mg - Labs Labs: 12/05/16 04:20 12/05/16 04:20 PT 12.7 SECONDS (9.6-11.2) H 11/24/16 06:00 INR 1.22 (0.92-1.08) H 11/24/16 06:00 APTT 33.9 SECONDS (23.3-32.5) H D 11/24/16 06:00 - Constitutional Appears: Confused, Cachectic, Chronically Ill - Head Exam Head Exam: NORMOCEPHALIC - Eye Exam Eye Exam: PERRL. absent: Scleral icterus - ENT Exam ENT Exam: Mucous Membranes Dry - Neck Exam Neck Exam: absent: Lymphadenopathy - Respiratory Exam Respiratory Exam: Decreased Breath Sounds, Rhonchi - Cardiovascular Exam Cardiovascular Exam: REGULAR RHYTHM, +S1, +S2 - GI/Abdominal Exam GI & Abdominal Exam: Distended, Soft. absent: Tenderness - Rectal Exam Rectal Exam: Deferred - Exam Exam: NORMAL INSPECTION - Extremities Exam Extremities Exam: absent: Calf Tenderness, Pedal Edema - Back Exam Back Exam: absent: CVA tenderness (L), CVA tenderness (R) - Neurological Exam Neurological Exam: Altered - Psychiatric Exam Psychiatric exam: Depressed - Skin Skin Exam: Dry Assessment and Plan (1) COPD (chronic obstructive pulmonary disease) with acute bronchitis Status: Acute (2) Atrial fibrillation Status: Acute (3) CHF (congestive heart failure) Status: Acute (4) Dehydration Status: Acute (5) Moderate COPD (chronic obstructive pulmonary disease) Status: Acute (6) PAD (peripheral artery disease) Status: Acute (7) Pneumonia Status: Resolved (8) COPD (chronic obstructive pulmonary disease) Status: Chronic (9) COPD exacerbation Status: Resolved
--- NOTE | 2016-12-05 15:26 | RAD ---
HISTORY: intubated COMPARISON: Comparison chest 12/04/2016 FINDINGS: LUNGS: In situ ETT tip of which lies approximately 7.2 cm above jung. Right IJ CVL with tip in SVC. Mild pulmonary vascular congestive changes. Slightly improved bibasilar opacities right-sided which remains slightly more prominent - confluent than the left side. . The small residual bilateral effusions are also felt be present PLEURA: As above. No apparent pneumothorax. CARDIOVASCULAR: Sternotomy wires and CABG clips. OSSEOUS STRUCTURES: No significant abnormalities. VISUALIZED UPPER ABDOMEN: Normal. OTHER FINDINGS: None. IMPRESSION: In situ ETT tip of which lies approximately 7.2 cm above jung. Right IJ CVL with tip in SVC. Mild pulmonary vascular congestive changes. Slightly improved bibasilar opacities right-sided which remains slightly more prominent - confluent than the left side. . The small residual bilateral effusions are also felt be present
--- NOTE | 2016-12-05 16:42 | CP.PCM.PN ---
Subjective - Date & Time of Evaluation Date of Evaluation: 12/05/16 Time of Evaluation: 16:31 - Subjective Subjective: Initial Nephrology Consultation: Assessment: Non-oliguric Acute Kidney Injury likely due to ATN due to sepsis, cardiac arrest Much elevated BUN disproportionate to serum creatinine: likely due to catabolic state, steroids ? pre-renal/cardiorenal and also some contribution by SMITA Anemia, pneumonia, cardiac arrest now with anoxic brain injury, systolic CHF, respi failure diabetes Mellitus, hypertension, COPD, CAD s/p CABG, coronary stent, BPH, A fib Plan No acute need for renal replacement therapy at this time. maintaining urine output, lytes okay, maintaining O2 saturating Monitor Input/Output, daily weights and renal function with basic metabolic panel Dose meds/antibiotics for reduced GFR. Avoid fleets enema/magnesium based laxatives. Avoid nephrotoxins/NSAIDs/ iodinated contrast (unless needed emergently) Glycemic control. maintain hemodynamics stable. overall appears to have poor prognosis. Further work up for as per primary team. d/w ICU attending. Thanks for allowing me to participate in care of your patient. Will follow patient with you. Please call if any Qs Dr Jhony Pate Office: [phone] ROS: Unable to obtain. noted overnight events. decision for trach being d/w family Physical Examination: General Appearance: Comfortable, in no acute respiratory distress, intubated, unresponsive to commands or stimuli. overall Ill appearing . Vitals reviewed and noted as below ENT: he is orally intubated. Lungs: Normal respiratory rate/effort. Breath sounds bilateral equal and clear anteriorly Heart: Normal rate. s1s2 normal. No rub or gallop. Extremities: no edema. No varicose veins Neurological: Patient is unresponsive to commands or stimuli Skin: Warm and dry. Normal turgor. No rash. Palpitation: Normal elasticity for age Abdomen: Abdomen is soft. Bowel sounds +. There is no guarding/rigidity or organomegaly Labs/imaging/EKG reviewed. Past medical history, past surgical history, family history, social history, allergy reviewed and noted as below work up; UA: 100 pr no blood CXR: mild interstitial prominence Echo: LVEF 30-35% CT: b/l simple cysts, otherwise unremarkable kids BNP 2548 Objective - Vital Signs/Intake and Output Vital Signs (last 24 hours): Temp Pulse Resp BP Pulse Ox 97.8 F 88 26 H 123/78 100 12/05/16 12:00 12/05/16 14:00 12/05/16 14:00 12/05/16 14:00 12/05/16 14:00 Intake and Output: 12/05/16 12/05/16 06:59 18:59 Intake Total 1335 860 Output Total 901 Balance 434 860 - Medications Medications: Current Medications Acetaminophen (Tylenol 650mg/20.3ml Solution Ud) 650 mg PEG Q4 PRN PRN Reason: Pain, moderate (4-7) Last Admin: 11/25/16 11:50 Dose: 650 mg Acetaminophen (Tylenol 650mg/20.3ml Solution Ud) 650 mg PEG Q4 PRN PRN Reason: Fever >100.4 F Last Admin: 11/29/16 00:04 Dose: 650 mg Albuterol Sulfate (Albuterol 0.083% Inhal Mary (2.5 Mg/3 Ml) Ud) 2.5 mg INH RQ4 PRN PRN Reason: Shortness of Breath Last Admin: 11/23/16 03:48 Dose: 2.5 mg Albuterol/Ipratropium (Duoneb 3 Mg/0.5 Mg (3 Ml) Ud) 3 ml INH RQ6 [facility] Last Admin: 12/05/16 13:00 Dose: 3 ml Amiodarone HCl (Cordarone) 200 mg PEG DAILY [facility] Last Admin: 12/05/16 08:48 Dose: 200 mg Collagenase (Santyl) 1 applic TOP 0900,2100 [facility] Last Admin: 12/05/16 08:51 Dose: 1 applic Dimethicone (Proshield Plus Skin Protectant) 1 applic TOP 0900,2100 [facility] Last Admin: 12/05/16 08:51 Dose: 1 applic Ferrous Sulfate (Feosol Liq) 450 mg PEG DAILY [facility] Last Admin: 12/05/16 08:50 Dose: 450 mg Metronidazole (Flagyl 500mg/100ml Ns) 100 mls @ 100 mls/hr IVPB Q8 [facility] Last Admin: 12/05/16 16:23 Dose: 100 mls/hr Metoclopramide HCl (Reglan) 10 mg PEG HS [facility] Last Admin: 12/04/16 21:12 Dose: 10 mg Metoprolol Tartrate (Lopressor) 25 mg PO Q12 [facility] Last Admin: 12/05/16 08:50 Dose: 25 mg Ondansetron HCl (Zofran Odt) 4 mg PEG Q8 [facility] Last Admin: 11/24/16 16:40 Dose: 4 mg Pantoprazole Sodium (Protonix Susp) 40 mg PEG DAILY [facility] Last Admin: 12/05/16 08:51 Dose: 40 mg Silver Sulfadiazine (Silvadene 1% 50 Gm) 1 applic TOP 0900,2100 [facility] Last Admin: 12/05/16 08:51 Dose: 1 applic Sucralfate (Carafate Oral Susp) 1 gm PEG TID [facility] Last Admin: 12/05/16 16:22 Dose: 1 gm Vancomycin HCl (Vancocin (Oral/Rectal Use)) 125 mg PO Q8 [facility] Last Admin: 12/05/16 16:23 Dose: 125 mg - Labs Labs: 12/05/16 04:20 12/05/16 04:20 PT 12.7 SECONDS (9.6-11.2) H 11/24/16 06:00 INR 1.22 (0.92-1.08) H 11/24/16 06:00 APTT 33.9 SECONDS (23.3-32.5) H D 11/24/16 06:00
--- NOTE | 2016-12-05 18:19 | CP.PCM.PN ---
Subjective - Date & Time of Evaluation Date of Evaluation: 12/05/16 Time of Evaluation: 22:22 - Subjective Subjective: Above noted Long d/w family Objective - Vital Signs/Intake and Output Vital Signs (last 24 hours): Temp Pulse Resp BP Pulse Ox 97.8 F 87 24 122/68 100 12/05/16 12:00 12/05/16 16:00 12/05/16 16:00 12/05/16 16:00 12/05/16 16:00 Intake and Output: 12/05/16 12/05/16 06:59 18:59 Intake Total 1335 1250 Output Total 901 Balance 434 1250 - Medications Medications: Current Medications Acetaminophen (Tylenol 650mg/20.3ml Solution Ud) 650 mg PEG Q4 PRN PRN Reason: Pain, moderate (4-7) Last Admin: 11/25/16 11:50 Dose: 650 mg Acetaminophen (Tylenol 650mg/20.3ml Solution Ud) 650 mg PEG Q4 PRN PRN Reason: Fever >100.4 F Last Admin: 11/29/16 00:04 Dose: 650 mg Albuterol Sulfate (Albuterol 0.083% Inhal Mary (2.5 Mg/3 Ml) Ud) 2.5 mg INH RQ4 PRN PRN Reason: Shortness of Breath Last Admin: 11/23/16 03:48 Dose: 2.5 mg Albuterol/Ipratropium (Duoneb 3 Mg/0.5 Mg (3 Ml) Ud) 3 ml INH RQ6 [facility] Last Admin: 12/05/16 13:00 Dose: 3 ml Amiodarone HCl (Cordarone) 200 mg PEG DAILY [facility] Last Admin: 12/05/16 08:48 Dose: 200 mg Collagenase (Santyl) 1 applic TOP 0900,2100 [facility] Last Admin: 12/05/16 08:51 Dose: 1 applic Dimethicone (Proshield Plus Skin Protectant) 1 applic TOP 0900,2100 [facility] Last Admin: 12/05/16 08:51 Dose: 1 applic Ferrous Sulfate (Feosol Liq) 450 mg PEG DAILY [facility] Last Admin: 12/05/16 08:50 Dose: 450 mg Metronidazole (Flagyl 500mg/100ml Ns) 100 mls @ 100 mls/hr IVPB Q8 [facility] Last Admin: 05/19/17 16:23 Dose: 100 mls/hr Metoclopramide HCl (Reglan) 10 mg PEG HS [facility] Last Admin: 12/04/16 21:12 Dose: 10 mg Metoprolol Tartrate (Lopressor) 25 mg PO Q12 [facility] Last Admin: 12/05/16 08:50 Dose: 25 mg Ondansetron HCl (Zofran Odt) 4 mg PEG Q8 [facility] Last Admin: 11/24/16 16:40 Dose: 4 mg Pantoprazole Sodium (Protonix Susp) 40 mg PEG DAILY [facility] Last Admin: 12/05/16 08:51 Dose: 40 mg Silver Sulfadiazine (Silvadene 1% 50 Gm) 1 applic TOP 0900,2100 [facility] Last Admin: 12/05/16 08:51 Dose: 1 applic Sucralfate (Carafate Oral Susp) 1 gm PEG TID [facility] Last Admin: 12/05/16 16:22 Dose: 1 gm Vancomycin HCl (Vancocin (Oral/Rectal Use)) 125 mg PO Q8 [facility] Last Admin: 12/05/16 16:23 Dose: 125 mg - Labs Labs: 12/05/16 04:20 12/05/16 04:20 PT 12.7 SECONDS (9.6-11.2) H 11/24/16 06:00 INR 1.22 (0.92-1.08) H 11/24/16 06:00 APTT 33.9 SECONDS (23.3-32.5) H D 11/24/16 06:00 - Respiratory Exam Respiratory Exam: NORMAL BREATHING PATTERN - Cardiovascular Exam Cardiovascular Exam: REGULAR RHYTHM - GI/Abdominal Exam GI & Abdominal Exam: Normal Bowel Sounds Assessment and Plan - Assessment and Plan (Free Text) Assessment: S/P Acute Respiratory Failure Asystole Anoxic encephalopathy Intubated Tracheostomy?? Aspiration?? HX COPD Klebsiella Pneumonia MDR ABX IVF Steroids Pulmonary ID S/P Asystole 2 to Pulmonary dx (S/P V-fib/ V-tach 2 to pulmonary dx) A-fib CAD S/P CABG Amiodorone Cardiology SMITA/ CKD 2 to Sepsis acute ischemia ATN HX Hyperkalemia and hypokalemia etiol ?? Adrenal insufficiency?? Hx of Orthostatic Hypotension at [place] ACTH Cortisol level ?? Florinef d/c Endo and Nephrology Consult Swallowing?? aspiration?? PEG Jevity and oral feedings Hx s/p + C-diff + Ag -toxin Hx Dec oral intake improved on Megace Sick Euthyroid syndrome Endo Anemia etiol? Chronic dx CKD Transfusion Chronic chest wall pain Pain meds
[2016-12-05] MEDS: Proshield Plus GEL TOP ONE ×2 (20:31→20:32)
--- NOTE | 2016-12-05 20:42 | EEG ---
DATE: 12/05/2016 CONDITION OF RECORDING: Drowsy, asleep. DIAGNOSIS: Altered mental status. MEDICATIONS: Reviewed via nurse's reconciliation sheet. INTERPRETATION: This is a 16-channel international recording. Background activity was composed of 6 cycles per second. There was limited amount of beta activity 16-20 cycles per second seen in this re cording. There was increased amount of theta activity 5-7 cycles per second seen in this tracing. S ome delta waves intermittently. Drowsiness is characterized by mixed beta and theta activity. Sleep was characterized by vertex transient waves, sleep spindles and bilateral slowing. Photic stimulati on showed no change in the tracing, no paroxysmal activity on this recording. CONCLUSION: Abnormal EEG due to presence of diffuse slowing throughout the EEG consistent with bilat eral cerebral dysfunction. No evidence of any epileptiform activity. Please clinically correlate. Quintin Wilson MD cc: [id number] TT: 12/05/2016 20:42:29 Confirmation # [id number] Dictation # [id number] brandon
[2016-12-06] MEDS: metroNIDAZOLE 500mg/100ml NS 100 ML IVPB SCH ×3 (00:06→16:28)
[2016-12-06] MEDS: Vancomycin 500 mg (Oral/Rectal USE) PO SCH ×3 (00:06→16:29)
[2016-12-06] MEDS: Albuterol-Ipratrop 3 mg / 0.5 (3 ml) UD INH SCH ×4 (01:05→19:15)
[2016-12-06 04:51] LABS: ABG ALLEN TEST YES; ARTERIAL BLOOD GAS MODE CPAP; ARTERIAL BLOOD GAS O2 CAPACITY 14.1 mL/dL (16-24); ARTERIAL BLOOD GAS O2 CONTENT 14.1 ML/dL (15-23); ARTERIAL BLOOD GAS PH 7.49 (7.35-7.45); ARTERIAL BLOOD GAS PO2 164 mm/Hg (80-100); ATERIAL BLOOD GAS PEEP 5; CARBOXYHEMOGLOBIN 1.1 % (0.5-1.5); HHB 0.2 % (0.0-5.0); METHEMOGLOBIN 1.7 % (0.0-3.0)
[2016-12-06 07:47] LABS: BASO % 0.2 % (0.0-2.0); CALCIUM 7.9 mg/dL (8.4-10.2); EOS # 0.1 K/uL (0.0-0.7); EOS % 0.7 % (0.0-4.0); HEMATOCRIT 29.9 % (35.0-51.0); LYMPH # 0.9 K/uL (1.0-4.3); LYMPH % 7.8 % (20.0-40.0); MEAN CELL VOLUME 88.7 fl (80.0-94.0); MEAN CORPUSCULAR HEMOGLOBIN 28.8 pg (27.0-31.0); MEAN CORPUSCULAR HGB CONC 32.5 g/dL (33.0-37.0); MEAN PLATELET VOLUME 11.3 fl (7.2-11.7); MONO # 0.5 K/uL (0.0-0.8); MONO % 4.6 % (0.0-10.0); NEUT # 10.3 K/uL (1.8-7.0); NEUT % 86.7 % (50.0-75.0); PLATELET COUNT 140 K/uL (130-400); POTASSIUM 3.5 MMOL/L (3.6-5.0); RED CELL DISTRIBUTION WIDTH 15.8 % (11.5-14.5); WHITE BLOOD COUNT 11.9 K/uL (4.8-10.8)
--- NOTE | 2016-12-06 07:52 | CP.PCM.PN ---
Subjective - Date & Time of Evaluation Date of Evaluation: 12/06/16 Time of Evaluation: 07:50 - Subjective Subjective: General Surgery Consult Note for Dr. Snell This 80M was seen and examined this AM at bedside.. Nurse reports not acute events overnight. Patient is intubated no clinical interval change. Objective - Vital Signs/Intake and Output Vital Signs (last 24 hours): Temp Pulse Resp BP Pulse Ox 982 F H 93 H 21 168/89 H 100 12/06/16 04:00 12/06/16 06:00 12/06/16 06:00 12/06/16 06:00 12/06/16 06:00 Intake and Output: 12/06/16 12/06/16 06:59 18:59 Intake Total 1890 Output Total 811 Balance 1079 - Medications Medications: Current Medications Acetaminophen (Tylenol 650mg/20.3ml Solution Ud) 650 mg PEG Q4 PRN PRN Reason: Pain, moderate (4-7) Last Admin: 11/25/16 11:50 Dose: 650 mg Acetaminophen (Tylenol 650mg/20.3ml Solution Ud) 650 mg PEG Q4 PRN PRN Reason: Fever >100.4 F Last Admin: 11/29/16 00:04 Dose: 650 mg Albuterol Sulfate (Albuterol 0.083% Inhal Mary (2.5 Mg/3 Ml) Ud) 2.5 mg INH RQ4 PRN PRN Reason: Shortness of Breath Last Admin: 11/23/16 03:48 Dose: 2.5 mg Albuterol/Ipratropium (Duoneb 3 Mg/0.5 Mg (3 Ml) Ud) 3 ml INH RQ6 [facility] Last Admin: 12/06/16 07:32 Dose: 3 ml Amiodarone HCl (Cordarone) 200 mg PEG DAILY [facility] Last Admin: 12/05/16 08:48 Dose: 200 mg Collagenase (Santyl) 1 applic TOP 0900,2100 [facility] Last Admin: 12/05/16 20:30 Dose: 1 applic Dimethicone (Proshield Plus Skin Protectant) 1 applic TOP 0900,2100 [facility] Last Admin: 12/05/16 20:37 Dose: 1 applic Ferrous Sulfate (Feosol Liq) 450 mg PEG DAILY [facility] Last Admin: 12/05/16 08:50 Dose: 450 mg Metronidazole (Flagyl 500mg/100ml Ns) 100 mls @ 100 mls/hr IVPB Q8 [facility] Last Admin: 12/06/16 00:06 Dose: 100 mls/hr Metoclopramide HCl (Reglan) 10 mg PEG HS [facility] Last Admin: 12/05/16 21:23 Dose: 10 mg Metoprolol Tartrate (Lopressor) 25 mg PO Q12 [facility] Last Admin: 12/05/16 20:33 Dose: 25 mg Ondansetron HCl (Zofran Odt) 4 mg PEG Q8 [facility] Last Admin: 11/24/16 16:40 Dose: 4 mg Pantoprazole Sodium (Protonix Susp) 40 mg PEG DAILY [facility] Last Admin: 12/05/16 08:51 Dose: 40 mg Silver Sulfadiazine (Silvadene 1% 50 Gm) 1 applic TOP 0900,2100 [facility] Last Admin: 12/05/16 20:36 Dose: 1 applic Sucralfate (Carafate Oral Susp) 1 gm PEG TID [facility] Last Admin: 12/05/16 16:22 Dose: 1 gm Vancomycin HCl (Vancocin (Oral/Rectal Use)) 125 mg PO Q8 [facility] Last Admin: 12/06/16 00:06 Dose: 125 mg - Labs Labs: 12/05/16 04:20 12/05/16 04:20 PT 12.7 SECONDS (9.6-11.2) H 11/24/16 06:00 INR 1.22 (0.92-1.08) H 11/24/16 06:00 APTT 33.9 SECONDS (23.3-32.5) H D 11/24/16 06:00 - Head Exam Additional comments: Intubated, non responsive to noxious stimul Assessment and Plan - Assessment and Plan (Free Text) Assessment: 71 yo M w/ extensive pmh, with acute respiratory failure and anoxic encephalopathy requiring intubation since 11/24 OR thursday for percutanous tracheostomy DW Dr Channing Neves PGY-1
[2016-12-06] MEDS: Sucralfate 1 gm/10 ml Oral Susp UD PEG SCH ×3 (08:51→16:27)
[2016-12-06] MEDS: Ferrous Sulfate 300 mg/5 mL Liq UD PEG SCH (08:54)
[2016-12-06] MEDS: Pantoprazole 40 mg Susp UD PEG SCH (08:56)
[2016-12-06] MEDS: Proshield Plus GEL TOP SCH ×2 (08:56→21:19)
[2016-12-06] MEDS: Santyl Collagenase OINTMENT TOP SCH ×2 (08:56→21:21)
[2016-12-06] MEDS: Silver Sulfadiazine 1% CREAM (50 gm) TOP SCH ×2 (08:57→21:20)
--- NOTE | 2016-12-06 12:09 | PN ---
DATE: 12/06/2016 LOCATION: ICU, room 423. SUBJECTIVE: This is a 71-year-old male with recent acute respiratory failure, now being followed joseline sely for metabolic management. His glycemic levels are fluctuating, but much improved at this time a nd he has been taken off IV steroid therapy as noted. The latest glucose levels have ranged from 126 -145 mg/dL. The latest chemistry showed a BUN of 36, sodium 141, potassium 3.5, chloride 109, CO2 of 22, glucose 116 and creatinine 2.0. So, at this time, we will continue the same medical management as ordered and will hold off on any kind of basal insulin to be initiated . We will obtain ser ial chemistries and supplement accordingly as needed. We will follow. Anabella Sebastian MD cc: [id number] TT: 12/06/2016 12:09:14 Confirmation # [id number] Dictation # [id number] brandon
--- NOTE | 2016-12-06 13:01 | CP.PCM.PN ---
Subjective - Date & Time of Evaluation Date of Evaluation: 12/06/16 Time of Evaluation: 11:00 - Subjective Subjective: Comatose. Intubated on ventilator support Objective - Vital Signs/Intake and Output Vital Signs (last 24 hours): Temp Pulse Resp BP Pulse Ox 98.5 F 84 24 153/96 H 100 12/06/16 12:00 12/06/16 12:00 12/06/16 12:00 12/06/16 12:00 12/06/16 12:00 Intake and Output: 12/06/16 12/06/16 06:59 18:59 Intake Total 1890 425 Output Total 811 700 Balance 1079 -275 - Medications Medications: Current Medications Acetaminophen (Tylenol 650mg/20.3ml Solution Ud) 650 mg PEG Q4 PRN PRN Reason: Pain, moderate (4-7) Last Admin: 11/25/16 11:50 Dose: 650 mg Acetaminophen (Tylenol 650mg/20.3ml Solution Ud) 650 mg PEG Q4 PRN PRN Reason: Fever >100.4 F Last Admin: 11/29/16 00:04 Dose: 650 mg Albuterol Sulfate (Albuterol 0.083% Inhal Mary (2.5 Mg/3 Ml) Ud) 2.5 mg INH RQ4 PRN PRN Reason: Shortness of Breath Last Admin: 11/23/16 03:48 Dose: 2.5 mg Albuterol/Ipratropium (Duoneb 3 Mg/0.5 Mg (3 Ml) Ud) 3 ml INH RQ6 [facility] Last Admin: 12/06/16 07:32 Dose: 3 ml Amiodarone HCl (Cordarone) 200 mg PEG DAILY [facility] Last Admin: 12/06/16 08:54 Dose: 200 mg Collagenase (Santyl) 1 applic TOP 0900,2100 [facility] Last Admin: 12/06/16 08:56 Dose: 1 applic Dimethicone (Proshield Plus Skin Protectant) 1 applic TOP 0900,2100 [facility] Last Admin: 12/06/16 08:56 Dose: 1 applic Ferrous Sulfate (Feosol Liq) 450 mg PEG DAILY [facility] Last Admin: 12/06/16 08:54 Dose: 450 mg Metronidazole (Flagyl 500mg/100ml Ns) 100 mls @ 100 mls/hr IVPB Q8 [facility] Last Admin: 12/06/16 08:55 Dose: 100 mls/hr Metoclopramide HCl (Reglan) 10 mg PEG HS [facility] Last Admin: 12/05/16 21:23 Dose: 10 mg Metoprolol Tartrate (Lopressor) 25 mg PO Q12 [facility] Last Admin: 12/06/16 08:55 Dose: 25 mg Ondansetron HCl (Zofran Odt) 4 mg PEG Q8 [facility] Last Admin: 11/24/16 16:40 Dose: 4 mg Pantoprazole Sodium (Protonix Susp) 40 mg PEG DAILY [facility] Last Admin: 12/06/16 08:56 Dose: 40 mg Silver Sulfadiazine (Silvadene 1% 50 Gm) 1 applic TOP 0900,2100 [facility] Last Admin: 12/06/16 08:57 Dose: 1 applic Sucralfate (Carafate Oral Susp) 1 gm PEG TID [facility] Last Admin: 12/06/16 12:17 Dose: 1 gm Vancomycin HCl (Vancocin (Oral/Rectal Use)) 125 mg PO Q8 [facility] Last Admin: 12/06/16 08:57 Dose: 125 mg - Labs Labs: 12/06/16 06:20 12/06/16 06:20 PT 12.7 SECONDS (9.6-11.2) H 11/24/16 06:00 INR 1.22 (0.92-1.08) H 11/24/16 06:00 APTT 33.9 SECONDS (23.3-32.5) H D 11/24/16 06:00 - Respiratory Exam Additional comments: Lungs clear - Cardiovascular Exam Cardiovascular Exam: Irregular Rhythm Additional comments: A.fib 86/min - Extremities Exam Additional comments: Edema of both UEs Assessment and Plan - Assessment and Plan (Free Text) Assessment: Ghassan renal function continues to improve S/P cardiac arrest hypoxic encephalopsthy Respiratory failure Plan: Continue to monitor renal function Was transfused 2 UPRBCs
[2016-12-06 13:38] LABS: NEUTROPHIL 91 % (42-75); TOTAL CELLS COUNTED 100
[2016-12-06 13:39] LABS: GIANT PLATELETS PRESENT; LARGE PLATELETS PRESENT
--- NOTE | 2016-12-06 14:50 | PN ---
DATE: 12/06/2016 LOCATION: The patient is in ICU, bed 423. TIME SPENT: 35 minutes. The patient is seen and evaluated at the bedside. Interim events reviewed. Remains comatose, on [facility] hanical ventilatory support, on CPAP pressure support, PEEP of 5. Exhaled rate 25, exhaled tidal vol ume 420, saturating 100% on FIO2 of 40%. Remains comatose, no response to verbal or painful stimuli. PHYSICAL EXAMINATION: VITAL SIGNS: Temperature 98.5, heart rate 84, respiratory rate 24, blood pressure 153/96, mean arter ial pressure 115. Intake 3490. Output 2361. Positive balance 1129. Weight 135 pounds. HEENT: Pupils no icterus. Pupils midline, reactive. No nystagmus. Occasional mild chewing activit y noted. NECK: No visible JVD. Supple. Carotid equal upstroke. CHEST: Bilateral breath sounds, diminished intensity. HEART: Rhythm regular. S1, S2 normal. No audible murmur. ABDOMEN: Bowel sounds present, soft. PEG in place. No increased distention. No focal tenderness. EXTREMITIES: Trace lower extremity edema. No peripheral digital cyanosis, no calf tenderness or pal pable cord. NEUROLOGIC: Flaccid x 4. SKIN: Without rash. CURRENT MEDICATIONS: Include Tylenol 650 PEG q. 4, albuterol/Atrovent inhalation 2.5 mg q. 4 p.r.n., albuterol/Atrovent inhalation 3 mL inhalation q. 6, amiodarone 200 mg PEG daily, Santyl 1 applicatio n topically, dimethicone 1 application topically, ferrous sulfate 450 mg PEG daily, Reglan 10 mg PEG daily, Lopressor 25 mg q. 12, Silvadene cream 1% 1 application topically, sucralfate 1 gram pac ket 3 times daily, vancomycin 125 mg q. 8 hours. LABORATORY DATA: WBC 11.9, hemoglobin 9.7, hematocrit 29.9, platelet count 140, neutrophils 86.7, ly mphocytes 7.8, monocytes 4.6. PT 12.7, INR 1.2, PTT 33.9. ABG: pH 7.49, pCO2 30, pO2 164, saturati ng 99.8 on CPAP, FIO2 40%. SMA-7: Sodium 141, potassium 3.5, chloride 109, CO2 22, blood urea nitro gen 86, creatinine 2, calcium 7.9. Urinalysis: RBC 4, WBC 1, bacteria rare. IMPRESSION: 1. Bradycardia, asystole, code secondary to retained secretions/cardiomyopathy. 2. Acute respiratory failure secondary to chronic aspiration events due to p.o. meds with percutaneo us endoscopic gastrostomy feeds. 3. Anoxic encephalopathy on vegetative state 4. Anemia of chronic disease. 5. Acute on chronic kidney disease. PLAN: Aware of plan by family. Agreed for tracheostomy, planned for next Thursday. Appreciate surgic al evaluation. Prognosis remains guarded. Continue supportive care. Improving renal function. Cont inue hydration. Continue bronchodilator, antibiotic as per ID consult. Wilfredo De La Cruz MD cc: [phone] TT: 12/06/2016 14:49:37 Confirmation # [id number] Dictation # [id number] brandon
--- NOTE | 2016-12-06 21:02 | CP.PCM.PN ---
Subjective - Date & Time of Evaluation Date of Evaluation: 12/06/16 Time of Evaluation: 22:22 - Subjective Subjective: Above noted Objective - Vital Signs/Intake and Output Vital Signs (last 24 hours): Temp Pulse Resp BP Pulse Ox 98.2 F 89 25 H 146/90 100 12/06/16 16:00 12/06/16 18:00 12/06/16 18:00 12/06/16 18:00 12/06/16 18:00 Intake and Output: 12/06/16 12/07/16 18:59 06:59 Intake Total 795 Output Total 1100 Balance -305 - Medications Medications: Current Medications Acetaminophen (Tylenol 650mg/20.3ml Solution Ud) 650 mg PEG Q4 PRN PRN Reason: Pain, moderate (4-7) Last Admin: 11/25/16 11:50 Dose: 650 mg Acetaminophen (Tylenol 650mg/20.3ml Solution Ud) 650 mg PEG Q4 PRN PRN Reason: Fever >100.4 F Last Admin: 11/29/16 00:04 Dose: 650 mg Albuterol Sulfate (Albuterol 0.083% Inhal Mary (2.5 Mg/3 Ml) Ud) 2.5 mg INH RQ4 PRN PRN Reason: Shortness of Breath Last Admin: 11/23/16 03:48 Dose: 2.5 mg Albuterol/Ipratropium (Duoneb 3 Mg/0.5 Mg (3 Ml) Ud) 3 ml INH RQ6 [facility] Last Admin: 12/06/16 19:15 Dose: 3 ml Amiodarone HCl (Cordarone) 200 mg PEG DAILY [facility] Last Admin: 12/06/16 08:54 Dose: 200 mg Collagenase (Santyl) 1 applic TOP 0900,2100 [facility] Last Admin: 12/06/16 08:56 Dose: 1 applic Dimethicone (Proshield Plus Skin Protectant) 1 applic TOP 0900,2100 [facility] Last Admin: 12/06/16 08:56 Dose: 1 applic Ferrous Sulfate (Feosol Liq) 450 mg PEG DAILY [facility] Last Admin: 12/06/16 08:54 Dose: 450 mg Metronidazole (Flagyl 500mg/100ml Ns) 100 mls @ 100 mls/hr IVPB Q8 [facility] Last Admin: 12/06/16 16:28 Dose: 100 mls/hr Metoclopramide HCl (Reglan) 10 mg PEG HS [facility] Last Admin: 12/05/16 21:23 Dose: 10 mg Metoprolol Tartrate (Lopressor) 25 mg PO Q12 [facility] Last Admin: 12/06/16 08:55 Dose: 25 mg Ondansetron HCl (Zofran Odt) 4 mg PEG Q8 [facility] Last Admin: 11/24/16 16:40 Dose: 4 mg Pantoprazole Sodium (Protonix Susp) 40 mg PEG DAILY [facility] Last Admin: 12/06/16 08:56 Dose: 40 mg Silver Sulfadiazine (Silvadene 1% 50 Gm) 1 applic TOP 0900,2100 [facility] Last Admin: 12/06/16 08:57 Dose: 1 applic Sucralfate (Carafate Oral Susp) 1 gm PEG TID [facility] Last Admin: 12/06/16 16:27 Dose: 1 gm Vancomycin HCl (Vancocin (Oral/Rectal Use)) 125 mg PO Q8 [facility] Last Admin: 12/06/16 16:29 Dose: 125 mg - Labs Labs: 12/06/16 06:20 12/06/16 06:20 PT 12.7 SECONDS (9.6-11.2) H 11/24/16 06:00 INR 1.22 (0.92-1.08) H 11/24/16 06:00 APTT 33.9 SECONDS (23.3-32.5) H D 11/24/16 06:00 - Respiratory Exam Respiratory Exam: NORMAL BREATHING PATTERN - Cardiovascular Exam Cardiovascular Exam: REGULAR RHYTHM - GI/Abdominal Exam GI & Abdominal Exam: Normal Bowel Sounds Assessment and Plan - Assessment and Plan (Free Text) Assessment: S/P Acute Respiratory Failure Asystole Anoxic encephalopathy Intubated Tracheostomy?? Aspiration?? HX COPD Klebsiella Pneumonia MDR ABX IVF Steroids Pulmonary ID S/P Asystole 2 to Pulmonary dx (S/P V-fib/ V-tach 2 to pulmonary dx) A-fib CAD S/P CABG Amiodorone Cardiology SMITA/ CKD 2 to Sepsis acute ischemia ATN Improving Nephrology Anemia etiol? Chronic dx CKD + guaic Transfusion HX Hyperkalemia and hypokalemia etiol ?? Adrenal insufficiency?? Hx of Orthostatic Hypotension at [place] ACTH Cortisol level ?? Florinef d/c Endocronology Swallowing?? aspiration?? PEG Jevity and oral feedings Hx s/p + C-diff + Ag -toxin Hx Dec oral intake improved on Megace Sick Euthyroid syndrome Endo Chronic chest wall pain Pain meds
[2016-12-07] MEDS: metroNIDAZOLE 500mg/100ml NS 100 ML IVPB SCH ×3 (00:20→16:08)
[2016-12-07] MEDS: Vancomycin 500 mg (Oral/Rectal USE) PO SCH ×3 (00:28→16:09)
[2016-12-07] MEDS: Albuterol-Ipratrop 3 mg / 0.5 (3 ml) UD INH SCH ×4 (00:59→19:03)
--- NOTE | 2016-12-07 02:07 | CP.PCM.PN ---
Subjective - Date & Time of Evaluation Date of Evaluation: 12/07/16 Time of Evaluation: 02:05 - Subjective Subjective: SURGERY NOTE FOR DR. WILLIAMSON 71M seen and examined at bedside. Clinical same. Objective - Vital Signs/Intake and Output Vital Signs (last 24 hours): Temp Pulse Resp BP Pulse Ox 98.2 F 91 H 25 H 139/70 100 12/06/16 16:00 12/06/16 21:17 12/06/16 18:00 12/06/16 21:17 12/06/16 18:00 Intake and Output: 12/06/16 12/07/16 18:59 06:59 Intake Total 795 Output Total 1100 Balance -305 - Medications Medications: Current Medications Acetaminophen (Tylenol 650mg/20.3ml Solution Ud) 650 mg PEG Q4 PRN PRN Reason: Pain, moderate (4-7) Last Admin: 11/25/16 11:50 Dose: 650 mg Acetaminophen (Tylenol 650mg/20.3ml Solution Ud) 650 mg PEG Q4 PRN PRN Reason: Fever >100.4 F Last Admin: 11/29/16 00:04 Dose: 650 mg Albuterol Sulfate (Albuterol 0.083% Inhal Mary (2.5 Mg/3 Ml) Ud) 2.5 mg INH RQ4 PRN PRN Reason: Shortness of Breath Last Admin: 11/23/16 03:48 Dose: 2.5 mg Albuterol/Ipratropium (Duoneb 3 Mg/0.5 Mg (3 Ml) Ud) 3 ml INH RQ6 [facility] Last Admin: 12/07/16 00:59 Dose: 3 ml Amiodarone HCl (Cordarone) 200 mg PEG DAILY [facility] Last Admin: 12/06/16 08:54 Dose: 200 mg Collagenase (Santyl) 1 applic TOP 0900,2100 [facility] Last Admin: 12/06/16 21:21 Dose: 1 applic Dimethicone (Proshield Plus Skin Protectant) 1 applic TOP 0900,2100 [facility] Last Admin: 12/06/16 21:19 Dose: 1 applic Ferrous Sulfate (Feosol Liq) 450 mg PEG DAILY [facility] Last Admin: 12/06/16 08:54 Dose: 450 mg Metronidazole (Flagyl 500mg/100ml Ns) 100 mls @ 100 mls/hr IVPB Q8 [facility] Last Admin: 12/07/16 00:20 Dose: 100 mls/hr Metoclopramide HCl (Reglan) 10 mg PEG HS [facility] Last Admin: 12/06/16 21:22 Dose: 10 mg Metoprolol Tartrate (Lopressor) 25 mg PO Q12 [facility] Last Admin: 12/06/16 21:17 Dose: 25 mg Ondansetron HCl (Zofran Odt) 4 mg PEG Q8 [facility] Last Admin: 11/24/16 16:40 Dose: 4 mg Pantoprazole Sodium (Protonix Susp) 40 mg PEG DAILY [facility] Last Admin: 12/06/16 08:56 Dose: 40 mg Silver Sulfadiazine (Silvadene 1% 50 Gm) 1 applic TOP 0900,2100 [facility] Last Admin: 12/06/16 21:20 Dose: 1 applic Sucralfate (Carafate Oral Susp) 1 gm PEG TID [facility] Last Admin: 12/06/16 16:27 Dose: 1 gm Vancomycin HCl (Vancocin (Oral/Rectal Use)) 125 mg PO Q8 [facility] Last Admin: 12/07/16 00:28 Dose: 125 mg - Labs Labs: 12/06/16 06:20 12/06/16 06:20 PT 12.7 SECONDS (9.6-11.2) H 11/24/16 06:00 INR 1.22 (0.92-1.08) H 11/24/16 06:00 APTT 33.9 SECONDS (23.3-32.5) H D 11/24/16 06:00 - Respiratory Exam Additional comments: intubated, unresponsive to painful stimuli - GI/Abdominal Exam Additional comments: G-tube in place and patent Assessment and Plan - Assessment and Plan (Free Text) Assessment: 71 yo M w/ extensive pmh, with acute respiratory failure and anoxic encephalopathy requiring intubation since 11/24 OR thursday for percutanous tracheostomy Discussed with Dr. Channing Corona, PGY1
[2016-12-07 04:56] LABS: ABG ALLEN TEST YES; ARTERIAL BLOOD GAS HCO3 24.9 mmol/L (21-28); ARTERIAL BLOOD GAS MODE CPAP; ARTERIAL BLOOD GAS O2 CAPACITY 13.8 mL/dL (16-24); ARTERIAL BLOOD GAS O2 CONTENT 13.8 ML/dL (15-23); ARTERIAL BLOOD GAS PH 7.46 (7.35-7.45); ARTERIAL BLOOD GAS PO2 137 mm/Hg (80-100); ARTERIAL BLOOD HGB O2 SAT 96.8 % (95.0-98.0); ATERIAL BLOOD GAS PEEP 5; CARBOXYHEMOGLOBIN 1.4 % (0.5-1.5); HHB 0.2 % (0.0-5.0); METHEMOGLOBIN 1.7 % (0.0-3.0)
[2016-12-07 09:06] LABS: HEMATOCRIT 30.7 % (35.0-51.0); MEAN CELL VOLUME 87.7 fl (80.0-94.0); MEAN CORPUSCULAR HEMOGLOBIN 28.8 pg (27.0-31.0); MEAN CORPUSCULAR HGB CONC 32.9 g/dL (33.0-37.0); RED CELL DISTRIBUTION WIDTH 15.9 % (11.5-14.5); WHITE BLOOD COUNT 11.2 K/uL (4.8-10.8)
[2016-12-07 09:15] LABS: ALB/GLOB RATIO 0.9 (1.0-2.1); BILIRUBIN,TOTAL 0.5 mg/dl (0.2-1.3); CALCIUM 7.6 mg/dL (8.4-10.2); POTASSIUM 3.2 MMOL/L (3.6-5.0); TOTAL PROTEIN 4.4 G/DL (6.3-8.2)
[2016-12-07] MEDS: Ferrous Sulfate 300 mg/5 mL Liq UD PEG SCH (09:29)
[2016-12-07] MEDS: Sucralfate 1 gm/10 ml Oral Susp UD PEG SCH ×3 (09:29→16:08)
[2016-12-07] MEDS: Santyl Collagenase OINTMENT TOP SCH ×2 (09:37→21:07)
[2016-12-07] MEDS: Pantoprazole 40 mg Susp UD PEG SCH (09:37)
[2016-12-07] MEDS: Proshield Plus GEL TOP SCH ×2 (09:37→21:06)
[2016-12-07] MEDS: Silver Sulfadiazine 1% CREAM (50 gm) TOP SCH ×2 (09:38→21:07)
--- NOTE | 2016-12-07 11:57 | CP.PCM.PN ---
Subjective - Date & Time of Evaluation Date of Evaluation: 11/30/16 Time of Evaluation: 15:00 - Subjective Subjective: Remains intubated & on ventilator support Objective - Vital Signs/Intake and Output Vital Signs (last 24 hours): Temp Pulse Resp BP Pulse Ox 97.6 F 87 21 168/99 H 100 12/07/16 08:00 12/07/16 10:00 12/07/16 10:00 12/07/16 10:00 12/07/16 10:00 Intake and Output: 12/07/16 12/07/16 06:59 18:59 Intake Total 940 335 Output Total 1245 300 Balance -305 35 - Medications Medications: Current Medications Acetaminophen (Tylenol 650mg/20.3ml Solution Ud) 650 mg PEG Q4 PRN PRN Reason: Pain, moderate (4-7) Last Admin: 11/25/16 11:50 Dose: 650 mg Acetaminophen (Tylenol 650mg/20.3ml Solution Ud) 650 mg PEG Q4 PRN PRN Reason: Fever >100.4 F Last Admin: 11/29/16 00:04 Dose: 650 mg Albuterol Sulfate (Albuterol 0.083% Inhal Mary (2.5 Mg/3 Ml) Ud) 2.5 mg INH RQ4 PRN PRN Reason: Shortness of Breath Last Admin: 11/23/16 03:48 Dose: 2.5 mg Albuterol/Ipratropium (Duoneb 3 Mg/0.5 Mg (3 Ml) Ud) 3 ml INH RQ6 [facility] Last Admin: 12/07/16 07:24 Dose: 3 ml Amiodarone HCl (Cordarone) 200 mg PEG DAILY [facility] Last Admin: 12/07/16 09:29 Dose: 200 mg Collagenase (Santyl) 1 applic TOP 899,2099 [facility] Last Admin: 12/07/16 09:37 Dose: 1 applic Dimethicone (Proshield Plus Skin Protectant) 1 applic TOP 00,2099 [facility] Last Admin: 12/07/16 09:37 Dose: 1 applic Ferrous Sulfate (Feosol Liq) 450 mg PEG DAILY [facility] Last Admin: 12/07/16 09:29 Dose: 450 mg Metronidazole (Flagyl 500mg/100ml Ns) 100 mls @ 100 mls/hr IVPB Q8 [facility] Last Admin: 12/07/16 09:40 Dose: 100 mls/hr Metoclopramide HCl (Reglan) 10 mg PEG HS [facility] Last Admin: 12/06/16 21:22 Dose: 10 mg Metoprolol Tartrate (Lopressor) 25 mg PO Q12 [facility] Last Admin: 12/07/16 09:37 Dose: 25 mg Ondansetron HCl (Zofran Odt) 4 mg PEG Q8 [facility] Last Admin: 11/24/16 16:40 Dose: 4 mg Pantoprazole Sodium (Protonix Susp) 40 mg PEG DAILY [facility] Last Admin: 12/07/16 09:37 Dose: 40 mg Silver Sulfadiazine (Silvadene 1% 50 Gm) 1 applic TOP 0900,2100 [facility] Last Admin: 12/07/16 09:38 Dose: 1 applic Sucralfate (Carafate Oral Susp) 1 gm PEG TID [facility] Last Admin: 12/07/16 09:29 Dose: 1 gm Vancomycin HCl (Vancocin (Oral/Rectal Use)) 125 mg PO Q8 [facility] Last Admin: 12/07/16 09:40 Dose: 125 mg - Labs Labs: 12/07/16 07:30 12/07/16 07:30 PT 12.7 SECONDS (9.6-11.2) H 11/24/16 06:00 INR 1.22 (0.92-1.08) H 11/24/16 06:00 APTT 33.9 SECONDS (23.3-32.5) H D 11/24/16 06:00 - Respiratory Exam Additional comments: Lungs ck lclear - Cardiovascular Exam Additional comments: A.fob 88/min - GI/Abdominal Exam GI & Abdominal Exam: Soft - Extremities Exam Additional comments: No pedal edema Assessment and Plan - Assessment and Plan (Free Text) Assessment: Ghassan. Renal function continues to improve S/P cardiac arrest Anoxic encephalopathy Respiratory failure Plan: Continue to monitor renal function & K+ level
--- NOTE | 2016-12-07 12:37 | CP.PCM.PN ---
Subjective - Date & Time of Evaluation Date of Evaluation: 12/07/16 Time of Evaluation: 12:15 - Subjective Subjective: UNRESPONSIVE Objective - Vital Signs/Intake and Output Vital Signs (last 24 hours): Temp Pulse Resp BP Pulse Ox 97.7 F 90 22 145/84 100 12/07/16 12:00 12/07/16 12:00 12/07/16 12:00 12/07/16 12:00 12/07/16 12:00 Intake and Output: 12/07/16 12/07/16 06:59 18:59 Intake Total 940 525 Output Total 1245 425 Balance -305 100 - Medications Medications: Current Medications Acetaminophen (Tylenol 650mg/20.3ml Solution Ud) 650 mg PEG Q4 PRN PRN Reason: Pain, moderate (4-7) Last Admin: 11/25/16 11:50 Dose: 650 mg Acetaminophen (Tylenol 650mg/20.3ml Solution Ud) 650 mg PEG Q4 PRN PRN Reason: Fever >100.4 F Last Admin: 11/29/16 00:04 Dose: 650 mg Albuterol Sulfate (Albuterol 0.083% Inhal Mary (2.5 Mg/3 Ml) Ud) 2.5 mg INH RQ4 PRN PRN Reason: Shortness of Breath Last Admin: 11/23/16 03:48 Dose: 2.5 mg Albuterol/Ipratropium (Duoneb 3 Mg/0.5 Mg (3 Ml) Ud) 3 ml INH RQ6 [facility] Last Admin: 12/07/16 07:24 Dose: 3 ml Amiodarone HCl (Cordarone) 200 mg PEG DAILY [facility] Last Admin: 12/07/16 09:29 Dose: 200 mg Collagenase (Santyl) 1 applic TOP 899,2099 [facility] Last Admin: 12/07/16 09:37 Dose: 1 applic Dimethicone (Proshield Plus Skin Protectant) 1 applic TOP 899,2099 [facility] Last Admin: 12/07/16 09:37 Dose: 1 applic Ferrous Sulfate (Feosol Liq) 450 mg PEG DAILY [facility] Last Admin: 12/07/16 09:29 Dose: 450 mg Metronidazole (Flagyl 500mg/100ml Ns) 100 mls @ 100 mls/hr IVPB Q8 [facility] Last Admin: 12/07/16 09:40 Dose: 100 mls/hr Metoclopramide HCl (Reglan) 10 mg PEG HS [facility] Last Admin: 12/06/16 21:22 Dose: 10 mg Metoprolol Tartrate (Lopressor) 25 mg PO Q12 [facility] Last Admin: 12/07/16 09:37 Dose: 25 mg Ondansetron HCl (Zofran Odt) 4 mg PEG Q8 [facility] Last Admin: 11/24/16 16:40 Dose: 4 mg Pantoprazole Sodium (Protonix Susp) 40 mg PEG DAILY [facility] Last Admin: 12/07/16 09:37 Dose: 40 mg Silver Sulfadiazine (Silvadene 1% 50 Gm) 1 applic TOP 0900,2100 [facility] Last Admin: 12/07/16 09:38 Dose: 1 applic Sucralfate (Carafate Oral Susp) 1 gm PEG TID [facility] Last Admin: 12/07/16 12:29 Dose: 1 gm Vancomycin HCl (Vancocin (Oral/Rectal Use)) 125 mg PO Q8 [facility] Last Admin: 12/07/16 09:40 Dose: 125 mg - Labs Labs: 12/07/16 07:30 12/07/16 07:30 PT 12.7 SECONDS (9.6-11.2) H 11/24/16 06:00 INR 1.22 (0.92-1.08) H 11/24/16 06:00 APTT 33.9 SECONDS (23.3-32.5) H D 11/24/16 06:00 - Respiratory Exam Respiratory Exam: Rhonchi - Cardiovascular Exam Cardiovascular Exam: Irregular Rhythm, +S1, +S2 - Additional Findings Additional findings: [employer] ATRIAL FIBRILLATION WITH [employer]VR INTENSIVISTS NOTES REVIEWED Assessment and Plan - Assessment and Plan (Free Text) Assessment: COPD REPIRATORY FAILURE ANOXIC ENCEPHALOPATHY CAD ATRIAL FIBRILLATION POOR PROGNOSIS Plan: CONTINUE AMIODARONE AND METOPROLOL THE PATIENT'S SON WANTS MV TO CONTINUE AND TRACHEOSTOMY TO BE PERFORMED
[2016-12-07] MEDS ORDERED: Potassium Chloride 20 mEq ER Tab PO ONE (13:13)
--- NOTE | 2016-12-07 13:35 | CP.PCM.PN ---
Subjective - Date & Time of Evaluation Date of Evaluation: 12/07/16 Time of Evaluation: 07:00 - Subjective Subjective: coma on vent for trach and peg Objective - Vital Signs/Intake and Output Vital Signs (last 24 hours): Temp Pulse Resp BP Pulse Ox 97.7 F 90 22 145/84 100 12/07/16 12:00 12/07/16 12:00 12/07/16 12:00 12/07/16 12:00 12/07/16 12:00 Intake and Output: 12/07/16 12/07/16 06:59 18:59 Intake Total 940 525 Output Total 1245 425 Balance -305 100 - Medications Medications: Current Medications Acetaminophen (Tylenol 650mg/20.3ml Solution Ud) 650 mg PEG Q4 PRN PRN Reason: Pain, moderate (4-7) Last Admin: 11/25/16 11:50 Dose: 650 mg Acetaminophen (Tylenol 650mg/20.3ml Solution Ud) 650 mg PEG Q4 PRN PRN Reason: Fever >100.4 F Last Admin: 11/29/16 00:04 Dose: 650 mg Albuterol Sulfate (Albuterol 0.083% Inhal Mary (2.5 Mg/3 Ml) Ud) 2.5 mg INH RQ4 PRN PRN Reason: Shortness of Breath Last Admin: 11/23/16 03:48 Dose: 2.5 mg Albuterol/Ipratropium (Duoneb 3 Mg/0.5 Mg (3 Ml) Ud) 3 ml INH RQ6 [facility] Last Admin: 12/07/16 13:16 Dose: 3 ml Amiodarone HCl (Cordarone) 200 mg PEG DAILY [facility] Last Admin: 12/07/16 09:29 Dose: 200 mg Collagenase (Santyl) 1 applic TOP 0900,2100 [facility] Last Admin: 12/07/16 09:37 Dose: 1 applic Dimethicone (Proshield Plus Skin Protectant) 1 applic TOP 0900,2100 [facility] Last Admin: 12/07/16 09:37 Dose: 1 applic Metronidazole (Flagyl 500mg/100ml Ns) 100 mls @ 100 mls/hr IVPB Q8 [facility] Last Admin: 12/07/16 09:40 Dose: 100 mls/hr Metoclopramide HCl (Reglan) 10 mg PEG HS [facility] Last Admin: 12/06/16 21:22 Dose: 10 mg Metoprolol Tartrate (Lopressor) 25 mg PO Q12 [facility] Last Admin: 12/07/16 09:37 Dose: 25 mg Ondansetron HCl (Zofran Odt) 4 mg PEG Q8 [facility] Last Admin: 11/24/16 16:40 Dose: 4 mg Silver Sulfadiazine (Silvadene 1% 50 Gm) 1 applic TOP 0900,2100 [facility] Last Admin: 12/07/16 09:38 Dose: 1 applic Sucralfate (Carafate Oral Susp) 1 gm PEG TID [facility] Last Admin: 12/07/16 12:29 Dose: 1 gm Vancomycin HCl (Vancocin (Oral/Rectal Use)) 125 mg PO Q8 [facility] Last Admin: 12/07/16 09:40 Dose: 125 mg - Labs Labs: 12/07/16 07:30 12/07/16 07:30 PT 12.7 SECONDS (9.6-11.2) H 11/24/16 06:00 INR 1.22 (0.92-1.08) H 11/24/16 06:00 APTT 33.9 SECONDS (23.3-32.5) H D 11/24/16 06:00 - Constitutional Appears: Cachectic, Chronically Ill - Head Exam Head Exam: NORMOCEPHALIC - Eye Exam Eye Exam: PERRL. absent: Scleral icterus - ENT Exam ENT Exam: Mucous Membranes Dry - Neck Exam Neck Exam: absent: Lymphadenopathy - Respiratory Exam Respiratory Exam: Decreased Breath Sounds, Rhonchi - Cardiovascular Exam Cardiovascular Exam: REGULAR RHYTHM, +S1, +S2 - GI/Abdominal Exam GI & Abdominal Exam: Distended, Soft. absent: Tenderness - Rectal Exam Rectal Exam: Deferred - Exam Exam: NORMAL INSPECTION - Extremities Exam Extremities Exam: absent: Pedal Edema - Back Exam Back Exam: absent: CVA tenderness (L), CVA tenderness (R) - Neurological Exam Neurological Exam: Alert, Awake, Oriented x3 - Psychiatric Exam Psychiatric exam: Normal Mood - Skin Skin Exam: Dry, Intact Assessment and Plan (1) COPD (chronic obstructive pulmonary disease) with acute bronchitis Status: Acute (2) Atrial fibrillation Status: Acute (3) CHF (congestive heart failure) Status: Acute (4) Dehydration Status: Acute (5) Moderate COPD (chronic obstructive pulmonary disease) Status: Acute (6) PAD (peripheral artery disease) Status: Acute (7) Pneumonia Status: Resolved (8) COPD (chronic obstructive pulmonary disease) Status: Chronic (9) COPD exacerbation Status: Resolved - Assessment and Plan (Free Text) Assessment: cont rx poor prognosis
--- NOTE | 2016-12-07 14:37 | CP.PCM.PN ---
Subjective - Date & Time of Evaluation Date of Evaluation: 12/07/16 Time of Evaluation: 22:22 - Subjective Subjective: Above noted Objective - Vital Signs/Intake and Output Vital Signs (last 24 hours): Temp Pulse Resp BP Pulse Ox 97.7 F 98 H 25 H 158/99 H 100 12/07/16 12:00 12/07/16 14:00 12/07/16 14:00 12/07/16 14:00 12/07/16 14:00 Intake and Output: 12/07/16 12/07/16 06:59 18:59 Intake Total 940 615 Output Total 1245 550 Balance -305 65 - Medications Medications: Current Medications Acetaminophen (Tylenol 650mg/20.3ml Solution Ud) 650 mg PEG Q4 PRN PRN Reason: Pain, moderate (4-7) Last Admin: 11/25/16 11:50 Dose: 650 mg Acetaminophen (Tylenol 650mg/20.3ml Solution Ud) 650 mg PEG Q4 PRN PRN Reason: Fever >100.4 F Last Admin: 11/29/16 00:04 Dose: 650 mg Albuterol Sulfate (Albuterol 0.083% Inhal Mary (2.5 Mg/3 Ml) Ud) 2.5 mg INH RQ4 PRN PRN Reason: Shortness of Breath Last Admin: 11/23/16 03:48 Dose: 2.5 mg Albuterol/Ipratropium (Duoneb 3 Mg/0.5 Mg (3 Ml) Ud) 3 ml INH RQ6 [facility] Last Admin: 12/07/16 13:16 Dose: 3 ml Amiodarone HCl (Cordarone) 200 mg PEG DAILY [facility] Last Admin: 12/07/16 09:29 Dose: 200 mg Collagenase (Santyl) 1 applic TOP 0900,2100 [facility] Last Admin: 12/07/16 09:37 Dose: 1 applic Dimethicone (Proshield Plus Skin Protectant) 1 applic TOP 0900,2100 [facility] Last Admin: 12/07/16 09:37 Dose: 1 applic Metronidazole (Flagyl 500mg/100ml Ns) 100 mls @ 100 mls/hr IVPB Q8 [facility] Last Admin: 12/07/16 09:40 Dose: 100 mls/hr Metoclopramide HCl (Reglan) 10 mg PEG HS [facility] Last Admin: 12/06/16 21:22 Dose: 10 mg Metoprolol Tartrate (Lopressor) 25 mg PO Q12 [facility] Last Admin: 12/07/16 09:37 Dose: 25 mg Ondansetron HCl (Zofran Odt) 4 mg PEG Q8 [facility] Last Admin: 11/24/16 16:40 Dose: 4 mg Silver Sulfadiazine (Silvadene 1% 50 Gm) 1 applic TOP 0900,2100 [facility] Last Admin: 12/07/16 09:38 Dose: 1 applic Sucralfate (Carafate Oral Susp) 1 gm PEG TID [facility] Last Admin: 12/07/16 12:29 Dose: 1 gm Vancomycin HCl (Vancocin (Oral/Rectal Use)) 125 mg PO Q8 [facility] Last Admin: 12/07/16 09:40 Dose: 125 mg - Labs Labs: 12/07/16 07:30 12/07/16 07:30 PT 12.7 SECONDS (9.6-11.2) H 11/24/16 06:00 INR 1.22 (0.92-1.08) H 11/24/16 06:00 APTT 33.9 SECONDS (23.3-32.5) H D 11/24/16 06:00 - Respiratory Exam Respiratory Exam: NORMAL BREATHING PATTERN - Cardiovascular Exam Cardiovascular Exam: Tachycardia - GI/Abdominal Exam GI & Abdominal Exam: Normal Bowel Sounds Assessment and Plan - Assessment and Plan (Free Text) Assessment: S/P Acute Respiratory Failure Asystole Anoxic encephalopathy Intubated Tracheostomy?? Aspiration?? HX COPD Klebsiella Pneumonia MDR ABX IVF Steroids Pulmonary ID S/P Asystole 2 to Pulmonary dx (S/P V-fib/ V-tach 2 to pulmonary dx) A-fib CAD S/P CABG Amiodorone Cardiology SMITA/ CKD 2 to Sepsis acute ischemia ATN Improving Nephrology Anemia etiol? Chronic dx CKD + guaic Transfusion HX Hyperkalemia and hypokalemia etiol ?? Adrenal insufficiency?? Hx of Orthostatic Hypotension at UT ACTH Cortisol level ?? Florinef d/c Endocronology Swallowing?? aspiration?? PEG Jevity and oral feedings Hx s/p + C-diff + Ag -toxin Hx Dec oral intake improved on Megace Sick Euthyroid syndrome Endo Chronic chest wall pain Pain meds
--- NOTE | 2016-12-07 18:03 | PN ---
DATE: 12/07/2016 CRITICAL CARE PROGRESS NOTE LOCATION: The patient in ICU, bed 423. TIME SPENT: 35 minutes. The patient is seen and evaluated at the bedside. Interim events reviewed. Remains comatose on mechanical ventilatory support on CPAP pressure support, PEEP of 5. Exhaled absorbed rate 22. Exhaled tidal volume of 510, saturating 100%. Peak airway pressure 16. PHYSICAL EXAMINATION: VITAL SIGNS: Temperature 97.7, heart rate 87, blood pressure 147/90, respiratory rate 22. Saturating 100%. Intake 3490, output 2361, negative balance 1129. Negative balance accumulative balance 610 today. HEENT: Pupils midline, 3-4 mm, poorly reactive. No nystagmus. NECK: No visible JVD. Supple. Carotid equal upstroke. CHEST: Bilateral breath sounds diminished intensity. HEART: Rhythm regular. S1, S2 normal. No audible murmur. ABDOMEN: Bowel sounds present, soft. PEG in place. No increased distention. No focal tenderness. EXTREMITIES: Trace lower extremity edema. No peripheral digital cyanosis, no calf tenderness or palpable cord. NEUROLOGIC: Flaccid x 4. SKIN: Without rash. CURRENT MEDICATIONS: Tylenol 650 PEG q. 4, albuterol inhalation 2.5 mg q. 4, albuterol inhalation q. 6 p.r.n., amiodarone 200 mg PEG daily, ferrous sulfate 450 mg PEG daily, Reglan 10 mg PEG daily, Lopressor 25 mg q. 12 hours, Silvadene cream 1% one application topically, sucralfate 1 gram 3 times daily, vancomycin 125 mg q. 8 hours. LABORATORY DATA: WBC 11.2, hemoglobin 10.1, hematocrit 30.7, platelet count 151. PT 12.7, INR PTT 33.9. SMA-7: Sodium 140, potassium 3.2, chloride 111, CO2 of 22, blood urea nitrogen 66, creatinine 1.6, calcium 7.6, total bilirubin 0.5, AST 34, ALT 32, alkaline phosphatase 102, total protein 4.4, albumin 2.1. Urinalysis is negative. Vancomycin trough level 22.9. Clostridium difficile antigen and toxin negative. IMPRESSION: Bradycardia asystole, status post cord secondary to retained secretions, cardiomyopathy, acute respiratory failure secondary to chronic aspiration. Aspiration events due to p.o. meds with percutaneous endoscopic gastrostomy feeds, anoxic encephalopathy, currently on vegetative state. Anemia of chronic disease, acute on chronic kidney disease, hypokalemia. PLAN: For tracheostomy on Thursday. Appreciate surgery evaluation. Supplement potassium. Continue supportive care. Renal function is improving. Currently BUN , creatinine 1.6. Appreciate renal followup. Anemia of chronic disease, currently hemoglobin stable. Wilfredo De La Cruz MD cc: [phone] TT: 12/07/2016 18:02:32 Confirmation # [id number] Dictation # [id number] [email or web address] RIVAS
[2016-12-08] MEDS: metroNIDAZOLE 500mg/100ml NS 100 ML IVPB SCH ×3 (00:29→17:16)
[2016-12-08] MEDS: Vancomycin 500 mg (Oral/Rectal USE) PO SCH ×4 (00:30→17:18)
[2016-12-08] MEDS: Albuterol 0.083% Inhal Sol (2.5 mg/3 mL) UD INH PRN ×2 (02:00→20:43)
[2016-12-08] MEDS: Albuterol-Ipratrop 3 mg / 0.5 (3 ml) UD INH SCH ×4 (02:00→20:30)
[2016-12-08 04:55] LABS: HEMATOCRIT 30.2 % (35.0-51.0); MEAN CELL VOLUME 88.8 fl (80.0-94.0); MEAN CORPUSCULAR HEMOGLOBIN 29.2 pg (27.0-31.0); MEAN CORPUSCULAR HGB CONC 32.9 g/dL (33.0-37.0); RED CELL DISTRIBUTION WIDTH 16.1 % (11.5-14.5); WHITE BLOOD COUNT 8.8 K/uL (4.8-10.8)
[2016-12-08 05:05] LABS: ALB/GLOB RATIO 0.9 (1.0-2.1); BILIRUBIN,TOTAL 0.6 mg/dl (0.2-1.3); CALCIUM 7.9 mg/dL (8.4-10.2); POTASSIUM 3.7 MMOL/L (3.6-5.0); TOTAL PROTEIN 4.5 G/DL (6.3-8.2)
[2016-12-08 05:35] LABS: ABG ALLEN TEST YES; ARTERIAL BLOOD GAS O2 CAPACITY 14.3 mL/dL (16-24); ARTERIAL BLOOD GAS O2 CONTENT 14.2 ML/dL (15-23); ARTERIAL BLOOD GAS PO2 129 mm/Hg (80-100); ARTERIAL BLOOD HGB O2 SAT 96.2 % (95.0-98.0); ATERIAL BLOOD GAS PEEP 5; CARBOXYHEMOGLOBIN 1.6 % (0.5-1.5); HHB 0.4 % (0.0-5.0); METHEMOGLOBIN 1.8 % (0.0-3.0)
--- NOTE | 2016-12-08 08:23 | PN ---
DATE: 12/07/2016 In ICU, room 423. This is a 71-year-old male with recent acute respiratory failure and currently endotracheally intubat ed and is now being followed closely for metabolic management. He was previously on an oral steroid therapy prior to this admission and was switched over to IV Solu-Medrol initially with this admission and has since then been taken off steroid therapy as noted. His glycemic levels are fluctuating, but much improved at this time, and the latest chemistry showed a BUN of 66, sodium 140, potassium 3.2, chloride 111, CO2 22, glucose 104 and creatinine 1.6. So at this time, we will continue the same medical management as ordered with no indication at this t dania for any kind of basal insulin, or a basal and bolus insulin regimen as noted. We will obtain ser ial chemistries and supplement accordingly as needed. We will follow. Anabella Sebastian MD cc: [id number] TT: 12/07/2016 14:17:56 Confirmation # [id number] Dictation # [id number] en
[2016-12-08] MEDS: Silver Sulfadiazine 1% CREAM (50 gm) TOP SCH ×2 (08:47→22:01)
[2016-12-08] MEDS: Santyl Collagenase OINTMENT TOP SCH ×2 (08:47→22:00)
[2016-12-08] MEDS: Proshield Plus GEL TOP SCH ×2 (08:47→22:00)
--- NOTE | 2016-12-08 08:57 | CP.PCM.PN ---
Subjective - Date & Time of Evaluation Date of Evaluation: 12/08/16 Time of Evaluation: 08:55 - Subjective Subjective: General Surgery - Dr. Snell Pt S&E. NAKarrieO. Pt remains intubated, unresponsive, on cpap w/ 40% fio2 5 peep. Objective - Vital Signs/Intake and Output Vital Signs (last 24 hours): Temp Pulse Resp BP Pulse Ox 97.7 F 101 H 23 136/90 100 12/08/16 08:00 12/08/16 08:43 12/08/16 08:00 12/08/16 08:43 12/08/16 08:00 Intake and Output: 12/08/16 12/08/16 06:59 18:59 Intake Total 570 Output Total 750 50 Balance -180 -50 - Medications Medications: Current Medications Albuterol Sulfate (Albuterol 0.083% Inhal Mary (2.5 Mg/3 Ml) Ud) 2.5 mg INH RQ4 PRN PRN Reason: Shortness of Breath Last Admin: 11/23/16 03:48 Dose: 2.5 mg Albuterol/Ipratropium (Duoneb 3 Mg/0.5 Mg (3 Ml) Ud) 3 ml INH RQ6 [facility] Last Admin: 12/08/16 07:59 Dose: 3 ml Amiodarone HCl (Cordarone) 200 mg PEG DAILY [facility] Last Admin: 12/07/16 09:29 Dose: 200 mg Collagenase (Santyl) 1 applic TOP 0900,2099 [facility] Last Admin: 12/08/16 08:47 Dose: 1 applic Dimethicone (Proshield Plus Skin Protectant) 1 applic TOP 0900,2099 [facility] Last Admin: 12/08/16 08:47 Dose: 1 applic Metronidazole (Flagyl 500mg/100ml Ns) 100 mls @ 100 mls/hr IVPB Q8 [facility] Last Admin: 12/08/16 08:43 Dose: 100 mls/hr Metoprolol Tartrate (Lopressor) 25 mg PO Q12 [facility] Last Admin: 12/08/16 08:43 Dose: 25 mg Ondansetron HCl (Zofran Odt) 4 mg PEG Q8 [facility] Last Admin: 11/24/16 16:40 Dose: 4 mg Silver Sulfadiazine (Silvadene 1% 50 Gm) 1 applic TOP 0900,2099 [facility] Last Admin: 12/08/16 08:47 Dose: 1 applic Vancomycin HCl (Vancocin (Oral/Rectal Use)) 125 mg PO Q8 [facility] Last Admin: 12/08/16 08:48 Dose: Not Given - Labs Labs: 12/08/16 04:20 12/08/16 04:20 PT 14.9 SECONDS (9.6-11.2) H 12/08/16 04:20 INR 1.43 (0.92-1.08) H 12/08/16 04:20 APTT 33.9 SECONDS (23.3-32.5) H D 11/24/16 06:00 - Constitutional Appears: No Acute Distress - Head Exam Head Exam: ATRAUMATIC, NORMAL INSPECTION, NORMOCEPHALIC - Respiratory Exam Additional comments: intubated, on vent - GI/Abdominal Exam Additional comments: PEG tube in place - Neurological Exam Neurological Exam: absent: Alert, Awake Assessment and Plan - Assessment and Plan (Free Text) Assessment: 71 yo M w/ extensive pmh, with acute respiratory failure and anoxic encephalopathy requiring intubation since 11/24 -OR cancelled today, will reschedule for Thursday -Resume tube feeds, hold at midnight Thursday night DW Dr Channing Plummer PGY2
--- NOTE | 2016-12-08 09:00 | RAD ---
HISTORY: Intubated. Portable semi upright study 04:40. COMPARISON: Multiple serial examinations preceding the most recent study: 12/05/2016. FINDINGS: LUNGS: Progressive infiltrates bilaterally lower lobe predilection right greater than left PLEURA: Increasing right pleural effusion. CARDIOVASCULAR: No significant interval change compared to the prior examination(s). OSSEOUS STRUCTURES: No significant abnormalities. VISUALIZED UPPER ABDOMEN: Normal. OTHER FINDINGS: Stable position of endotracheal tube and right IJ catheter placement position. IMPRESSION: Worsening bilateral alveolar infiltrates, increasing right pleural effusion compared to 12/05/2016.
--- NOTE | 2016-12-08 09:31 | CP.PCM.PN ---
Subjective - Date & Time of Evaluation Date of Evaluation: 12/08/16 Time of Evaluation: 09:29 - Subjective Subjective: Interim events reviewed. Remains orally intubated and on CPAP/PS ventilation. Vital signs remain stable, afebrile. No leukocytosis, Hgb 10GM, platelets 154. INR 1.43, mildly alkalotic, lytes okay, renal function improving. Today's CXR shows some increased congestive changes with increased right pleural effusion. Neurologically remains the same. Eyes are partially opened, moist cornea, no scleral icterus. ETT in place, small volume secretions suctioned. No dullness on percussion of the anterior chest wall. No subcutaneous emphysema palpated. Sonorous rhonchi auscultated bilaterally, no wheezes. Breath sounds are diminished posteriorly, more right than left. Heart sounds are distant, rhythm irregular. PEG tube functional, abdomen is soft. + dependant edema, no cyanosis. Pneumonia appears resolved. Pleural effusion may reflect decreased LVEF and low serum proteins. Tracheostomy has been cancelled for today, rescheduled. Still has poor prognosis for recovery of mental status. Renal function improving. Objective - Vital Signs/Intake and Output Vital Signs (last 24 hours): Temp Pulse Resp BP Pulse Ox 97.7 F 101 H 23 136/90 100 12/08/16 08:00 12/08/16 08:58 12/08/16 08:00 12/08/16 08:58 12/08/16 08:00 Intake and Output: 12/07/16 12/08/16 23:59 11:59 Intake Total 940 290 Output Total 475 800 Balance 465 -510 - Medications Medications: Current Medications Albuterol Sulfate (Albuterol 0.083% Inhal Mary (2.5 Mg/3 Ml) Ud) 2.5 mg INH RQ4 PRN PRN Reason: Shortness of Breath Last Admin: 11/23/16 03:48 Dose: 2.5 mg Albuterol/Ipratropium (Duoneb 3 Mg/0.5 Mg (3 Ml) Ud) 3 ml INH RQ6 [facility] Last Admin: 12/08/16 07:59 Dose: 3 ml Collagenase (Santyl) 1 applic TOP 899,2099 [facility] Last Admin: 12/08/16 08:47 Dose: 1 applic Dimethicone (Proshield Plus Skin Protectant) 1 applic TOP 00,2099 [facility] Last Admin: 12/08/16 08:47 Dose: 1 applic Metronidazole (Flagyl 500mg/100ml Ns) 100 mls @ 100 mls/hr IVPB Q8 [facility] Last Admin: 12/08/16 08:43 Dose: 100 mls/hr Metoprolol Tartrate (Lopressor) 25 mg PO Q12 [facility] Last Admin: 12/08/16 08:43 Dose: 25 mg Ondansetron HCl (Zofran Odt) 4 mg PEG Q8 [facility] Last Admin: 11/24/16 16:40 Dose: 4 mg Silver Sulfadiazine (Silvadene 1% 50 Gm) 1 applic TOP 0900,2099 [facility] Last Admin: 12/08/16 08:47 Dose: 1 applic Vancomycin HCl (Vancocin (Oral/Rectal Use)) 125 mg PO Q8 [facility] Last Admin: 12/08/16 08:59 Dose: 125 mg - Labs Labs: 12/08/16 04:20 12/08/16 04:20 PT 14.9 SECONDS (9.6-11.2) H 12/08/16 04:20 INR 1.43 (0.92-1.08) H 12/08/16 04:20 APTT 33.9 SECONDS (23.3-32.5) H D 11/24/16 06:00 Assessment and Plan (1) Respiratory failure with hypercapnia Status: Resolved (2) Endotracheally intubated Status: Acute (3) On mechanically assisted ventilation Status: Acute (4) Pneumonia Status: Resolved (5) COPD exacerbation Status: Resolved
--- NOTE | 2016-12-08 10:32 | CP.PCM.PN ---
Subjective - Date & Time of Evaluation Date of Evaluation: 12/08/16 Time of Evaluation: 09:00 - Subjective Subjective: UNRESPONSIVE Objective - Vital Signs/Intake and Output Vital Signs (last 24 hours): Temp Pulse Resp BP Pulse Ox 97.7 F 101 H 23 136/90 100 12/08/16 08:00 12/08/16 08:58 12/08/16 08:00 12/08/16 08:58 12/08/16 08:00 Intake and Output: 12/08/16 12/08/16 06:59 18:59 Intake Total 570 Output Total 750 50 Balance -180 -50 - Medications Medications: Current Medications Albuterol Sulfate (Albuterol 0.083% Inhal Mary (2.5 Mg/3 Ml) Ud) 2.5 mg INH RQ4 PRN PRN Reason: Shortness of Breath Last Admin: 11/23/16 03:48 Dose: 2.5 mg Albuterol/Ipratropium (Duoneb 3 Mg/0.5 Mg (3 Ml) Ud) 3 ml INH RQ6 [facility] Last Admin: 12/08/16 07:59 Dose: 3 ml Collagenase (Santyl) 1 applic TOP 899,2099 [facility] Last Admin: 12/08/16 08:47 Dose: 1 applic Dimethicone (Proshield Plus Skin Protectant) 1 applic TOP 00,2099 [facility] Last Admin: 12/08/16 08:47 Dose: 1 applic Metronidazole (Flagyl 500mg/100ml Ns) 100 mls @ 100 mls/hr IVPB Q8 [facility] Last Admin: 12/08/16 08:43 Dose: 100 mls/hr Metoprolol Tartrate (Lopressor) 25 mg PO Q12 [facility] Last Admin: 12/08/16 08:43 Dose: 25 mg Ondansetron HCl (Zofran Odt) 4 mg PEG Q8 [facility] Last Admin: 11/24/16 16:40 Dose: 4 mg Silver Sulfadiazine (Silvadene 1% 50 Gm) 1 applic TOP 0900,2099 [facility] Last Admin: 12/08/16 08:47 Dose: 1 applic Vancomycin HCl (Vancocin (Oral/Rectal Use)) 125 mg PO Q8 [facility] Last Admin: 12/08/16 08:59 Dose: 125 mg - Labs Labs: 12/08/16 04:20 12/08/16 04:20 PT 14.9 SECONDS (9.6-11.2) H 12/08/16 04:20 INR 1.43 (0.92-1.08) H 12/08/16 04:20 APTT 33.9 SECONDS (23.3-32.5) H D 11/24/16 06:00 - Respiratory Exam Respiratory Exam: Rhonchi - Cardiovascular Exam Cardiovascular Exam: Irregular Rhythm, +S1, +S2 - Additional Findings Additional findings: SOLDERER DIPPER ATRIAL FIBRILLATION PULMONARY NOTE REVIEWED BUN/CR 59/1.5 K+ 3.7 Assessment and Plan - Assessment and Plan (Free Text) Assessment: RESPIRATORY FAILURE ANOXIC ENCEPHALOPATHY CAD ATRIAL FIBRILLATION Plan: TRACHEOSTOMY CANCELLED FOR TODAY CONTINUE AMIODARONE AND METOPROLOL
--- NOTE | 2016-12-08 11:19 | CP.PCM.PN ---
Subjective - Date & Time of Evaluation Date of Evaluation: 12/08/16 Time of Evaluation: 11:30 - Subjective Subjective: Unresposive, intubated on ventilator Objective - Vital Signs/Intake and Output Vital Signs (last 24 hours): Temp Pulse Resp BP Pulse Ox 97.7 F 91 H 23 126/80 100 12/08/16 08:00 12/08/16 10:00 12/08/16 10:00 12/08/16 10:00 12/08/16 10:00 Intake and Output: 12/08/16 12/08/16 06:59 18:59 Intake Total 570 245 Output Total 750 200 Balance -180 45 - Medications Medications: Current Medications Albuterol Sulfate (Albuterol 0.083% Inhal Mary (2.5 Mg/3 Ml) Ud) 2.5 mg INH RQ4 PRN PRN Reason: Shortness of Breath Last Admin: 11/23/16 03:48 Dose: 2.5 mg Albuterol/Ipratropium (Duoneb 3 Mg/0.5 Mg (3 Ml) Ud) 3 ml INH RQ6 [facility] Last Admin: 12/08/16 07:59 Dose: 3 ml Collagenase (Santyl) 1 applic TOP 0900,2100 [facility] Last Admin: 12/08/16 08:47 Dose: 1 applic Dimethicone (Proshield Plus Skin Protectant) 1 applic TOP 0900,2100 [facility] Last Admin: 12/08/16 08:47 Dose: 1 applic Metronidazole (Flagyl 500mg/100ml Ns) 100 mls @ 100 mls/hr IVPB Q8 [facility] Last Admin: 12/08/16 08:43 Dose: 100 mls/hr Metoprolol Tartrate (Lopressor) 25 mg PO Q12 [facility] Last Admin: 12/08/16 08:43 Dose: 25 mg Ondansetron HCl (Zofran Odt) 4 mg PEG Q8 [facility] Last Admin: 11/24/16 16:40 Dose: 4 mg Silver Sulfadiazine (Silvadene 1% 50 Gm) 1 applic TOP 0900,2100 [facility] Last Admin: 12/08/16 08:47 Dose: 1 applic Vancomycin HCl (Vancocin (Oral/Rectal Use)) 125 mg PO Q8 [facility] Last Admin: 12/08/16 08:59 Dose: 125 mg - Labs Labs: 12/08/16 04:20 12/08/16 04:20 PT 14.9 SECONDS (9.6-11.2) H 12/08/16 04:20 INR 1.43 (0.92-1.08) H 12/08/16 04:20 APTT 33.9 SECONDS (23.3-32.5) H D 11/24/16 06:00 - Respiratory Exam Additional comments: Rhonchi - Cardiovascular Exam Cardiovascular Exam: Irregular Rhythm, REGULAR RHYTHM Additional comments: A.fib with controlled ventricular response - GI/Abdominal Exam GI & Abdominal Exam: Soft - Extremities Exam Additional comments: No edema Assessment and Plan - Assessment and Plan (Free Text) Assessment: SMITA. resolved. renal function is stable K+ controlled S/P cardiac arrest Resp failute Anoxic encephalopathy Plan: Continue to monitor renal function
--- NOTE | 2016-12-08 14:06 | CP.PCM.PN ---
Subjective - Date & Time of Evaluation Date of Evaluation: 12/08/16 Time of Evaluation: 14:02 - Subjective Subjective: Mr. Bellamy was seen and examined today at bedside in the ICU. He continues to be intubated, off sedation. He responded to voice, but did not follow commands. He withdrew to pain in all extremities. Objective - Vital Signs/Intake and Output Vital Signs (last 24 hours): Temp Pulse Resp BP Pulse Ox 98 F 97 H 25 H 154/94 H 100 12/08/16 12:00 12/08/16 12:00 12/08/16 12:00 12/08/16 12:00 12/08/16 12:00 Intake and Output: 12/08/16 12/08/16 06:59 18:59 Intake Total 570 245 Output Total 750 250 Balance -180 -5 - Medications Medications: Current Medications Albuterol Sulfate (Albuterol 0.083% Inhal Mary (2.5 Mg/3 Ml) Ud) 2.5 mg INH RQ4 PRN PRN Reason: Shortness of Breath Last Admin: 11/23/16 03:48 Dose: 2.5 mg Albuterol/Ipratropium (Duoneb 3 Mg/0.5 Mg (3 Ml) Ud) 3 ml INH RQ6 [facility] Last Admin: 12/08/16 07:59 Dose: 3 ml Amantadine HCl (Amantadine 100 Mg Cap) 100 mg PO BID [facility] Collagenase (Santyl) 1 applic TOP 899,2099 [facility] Last Admin: 12/08/16 08:47 Dose: 1 applic Dimethicone (Proshield Plus Skin Protectant) 1 applic TOP 899,2099 [facility] Last Admin: 12/08/16 08:47 Dose: 1 applic Metronidazole (Flagyl 500mg/100ml Ns) 100 mls @ 100 mls/hr IVPB Q8 [facility] Last Admin: 12/08/16 08:43 Dose: 100 mls/hr Methylphenidate HCl (Ritalin) 10 mg PO DAILY [facility] Metoprolol Tartrate (Lopressor) 25 mg PO Q12 [facility] Last Admin: 12/08/16 08:43 Dose: 25 mg Ondansetron HCl (Zofran Odt) 4 mg PEG Q8 [facility] Last Admin: 11/24/16 16:40 Dose: 4 mg Silver Sulfadiazine (Silvadene 1% 50 Gm) 1 applic TOP 0900,2100 [facility] Last Admin: 12/08/16 08:47 Dose: 1 applic Vancomycin HCl (Vancocin (Oral/Rectal Use)) 125 mg PO Q8 [facility] Last Admin: 12/08/16 08:59 Dose: 125 mg - Labs Labs: 12/08/16 04:20 12/08/16 04:20 PT 14.9 SECONDS (9.6-11.2) H 12/08/16 04:20 INR 1.43 (0.92-1.08) H 12/08/16 04:20 APTT 33.9 SECONDS (23.3-32.5) H D 11/24/16 06:00 - Head Exam Additional comments: ET tube in place - Eye Exam Eye Exam: EOMI, Normal appearance, PERRL - Neck Exam Neck Exam: Full ROM, Normal Inspection. absent: Lymphadenopathy - Cardiovascular Exam Cardiovascular Exam: REGULAR RHYTHM, +S1, +S2. absent: Murmur - Neurological Exam Additional comments: Pupils reactive to light, corneal reflex is present, breathing over the vent, withdraws to pain, opens eyes to voice, moves extremities to pain, reflexes normal with upgoing plantar responses bilaterally. Assessment and Plan (1) Anoxic brain injury Assessment & Plan: Will start stimulants with methylphenidate 10 mg daily and amantadine 100 mg BID to increase cortical activity in hopes of getting more interactivity. Discussed plan with patient's son and ICU attending. Status: Acute
--- NOTE | 2016-12-08 16:08 | CP.CCUPN ---
CCU Objective - Vital Signs / Intake & Output Intake and Output (Last 8hrs): Intake & Output 12/08/16 12/08/16 12/08/16 06:59 14:59 22:59 Intake Total 290 245 Output Total 750 250 Balance -460 -5 Intake: IV 0 Intake, Piggyback 100 100 Tube Feeding 90 45 Free Water Flush 100 100 Output: Urine 750 250 Urethral ([place]) 750 250 Other: # Bowel Movements 1 1 - Physical Exam Head: Positive for: Atraumatic, Normocephalic Pupils: Positive for: PERRL Extroacular Muscles: Positive for: EOMI Conjunctiva: Positive for: Normal Mouth: Positive for: Moist Mucous Membranes Pharnyx: Positive for: Normal, Other (ET tube in place) Nose (External): Positive for: Atraumatic Neck: Positive for: Normal Range of Motion Respiratory/Chest: Positive for: Good Air Exchange, Wheezes, Decreased Breath Sounds, Rhonchi. Negative for: Clear to Auscultation, Respiratory Distress, Accessory Muscle Use Cardiovascular: Positive for: Irregular Rhythm, Peripheal Pulses Present. Negative for: Murmurs, Tachycardic, Bradycardic Abdomen: Positive for: Distention, Normal Bowel Sounds. Negative for: Tenderness Upper Extremity: Positive for: Normal Inspection Lower Extremity: Positive for: Normal Inspection, Edema Neurological: Positive for: Other ( Unresponsive) Skin: Positive for: Warm, Dry, Rashes, Normal Color Psychiatric: Positive for: Alert, Oriented x 3, Normal Insight, Normal Concentration - Medications Active Medications: Active Medications Generic Name Dose Route Start Last Admin Trade Name Freq PRN Reason Stop Dose Admin Albuterol Sulfate 2.5 mg 11/22/16 14:14 11/23/16 03:48 Albuterol 0.083% Inhal Mary (2.5 Mg/3 Ml) Ud INH 2.5 mg RQ4 PRN Administration Shortness of Breath Albuterol/Ipratropium 3 ml 11/24/16 14:00 12/08/16 14:19 Duoneb 3 Mg/0.5 Mg (3 Ml) Ud INH 3 ml RQ6 [facility] Administration Amantadine HCl 100 mg 12/08/16 17:00 Amantadine 100 Mg Cap PO BID [facility] Collagenase 1 applic 11/23/16 21:00 12/08/16 08:47 Santyl TOP 1 applic 0900,2100 [facility] Administration Dimethicone 1 applic 11/23/16 21:00 12/08/16 08:47 Proshield Plus Skin Protectant TOP 1 applic 0900,2100 [facility] Administration Metronidazole 100 mls @ 100 mls/hr 12/02/16 12:15 12/08/16 08:43 Flagyl 500mg/100ml Ns IVPB 100 mls/hr Q8 [facility] Administration Methylphenidate HCl 10 mg 12/08/16 14:15 Ritalin PO DAILY [facility] Metoprolol Tartrate 25 mg 11/28/16 21:00 12/08/16 08:43 Lopressor PO 25 mg Q12 [facility] Administration Ondansetron HCl 4 mg 11/22/16 17:00 11/24/16 16:40 Zofran Odt PEG 4 mg Q8 [facility] Administration Silver Sulfadiazine 1 applic 11/23/16 21:00 12/08/16 08:47 Silvadene 1% 50 Gm TOP 1 applic 0900,2099 [facility] Administration Vancomycin HCl 125 mg 12/02/16 17:00 12/08/16 08:59 Vancocin (Oral/Rectal Use) PO 125 mg Q8 [facility] Administration - Patient Studies Lab Studies: Lab Studies 12/08/16 12/08/16 12/08/16 Range/Units 11:27 06:42 05:30 WBC (4.8-10.8) K/uL RBC (4.40-5.90) Mil/uL Hgb (12.0-18.0) g/dL Hct (35.0-51.0) % MCV (80.0-94.0) fl MCH (27.0-31.0) pg MCHC (33.0-37.0) g/dL RDW (11.5-14.5) % Plt Count (130-400) K/uL PT (9.6-11.2) SECONDS INR (0.92-1.08) pCO2 31 L (35-45) mm/Hg pO2 129 H (80-100) mm/Hg HCO3 26.0 (21-28) mmol/L ABG pH 7.50 H (7.35-7.45) ABG Total CO2 25.2 (22-28) mmol/L ABG O2 Saturation 99.6 H (95-98) % ABG O2 Content 14.2 L (15-23) ML/dL ABG Base Excess 1.4 (-2.0-3.0) mmol/L ABG Hemoglobin 10.3 L (11.7-17.4) g/dL ABG Carboxyhemoglobin 1.6 H (0.5-1.5) % POC ABG HHb (Measured) 0.4 (0.0-5.0) % ABG Methemoglobin 1.8 (0.0-3.0) % ABG O2 Capacity 14.3 L (16-24) mL/dL Emmanuel Test Yes A-a O2 Difference 117.0 mm/Hg Hgb O2 Saturation 96.2 (95.0-98.0) % FiO2 40.0 % PEEP 5 Pressure Support 10 Sodium (132-148) mmol/l Potassium (3.6-5.0) MMOL/L Chloride (98-107) mmol/L Carbon Dioxide (22-30) mmol/L Anion Gap (10-20) BUN (9-20) mg/dl Creatinine (0.8-1.5) mg/dL Est GFR ( Amer) Est GFR (Non-Af Amer) POC Glucose (mg/dL) 109 91 (65-110) mg/dL Random Glucose (75-110) mg/dL Calcium (8.4-10.2) mg/dL Total Bilirubin (0.2-1.3) mg/dl AST (17-59) U/L ALT (21-72) U/L Alkaline Phosphatase (38-126) U/L Total Protein (6.3-8.2) G/DL Albumin (3.5-5.0) g/dL Globulin (2.2-3.9) gm/dL Albumin/Globulin Ratio (1.0-2.1) 12/08/16 12/08/16 12/08/16 Range/Units 04:20 04:20 04:20 WBC 8.8 (4.8-10.8) K/uL RBC 3.40 L (4.40-5.90) Mil/uL Hgb 10.0 L (12.0-18.0) g/dL Hct 30.2 L (35.0-51.0) % MCV 88.8 (80.0-94.0) fl MCH 29.2 (27.0-31.0) pg MCHC 32.9 L (33.0-37.0) g/dL RDW 16.1 H (11.5-14.5) % Plt Count 154 (130-400) K/uL PT 14.9 H (9.6-11.2) SECONDS INR 1.43 H (0.92-1.08) pCO2 (35-45) mm/Hg pO2 (80-100) mm/Hg HCO3 (21-28) mmol/L ABG pH (7.35-7.45) ABG Total CO2 (22-28) mmol/L ABG O2 Saturation (95-98) % ABG O2 Content (15-23) ML/dL ABG Base Excess (-2.0-3.0) mmol/L ABG Hemoglobin (11.7-17.4) g/dL ABG Carboxyhemoglobin (0.5-1.5) % POC ABG HHb (Measured) (0.0-5.0) % ABG Methemoglobin (0.0-3.0) % ABG O2 Capacity (16-24) mL/dL Emmanuel Test A-a O2 Difference mm/Hg Hgb O2 Saturation (95.0-98.0) % FiO2 % PEEP Pressure Support Sodium 138 (132-148) mmol/l Potassium 3.7 (3.6-5.0) MMOL/L Chloride 109 H (98-107) mmol/L Carbon Dioxide 23 (22-30) mmol/L Anion Gap 10 (10-20) BUN 59 H (9-20) mg/dl Creatinine 1.5 (0.8-1.5) mg/dL Est GFR ( Amer) 56 Est GFR (Non-Af Amer) 46 POC Glucose (mg/dL) (65-110) mg/dL Random Glucose 82 (75-110) mg/dL Calcium 7.9 L (8.4-10.2) mg/dL Total Bilirubin 0.6 (0.2-1.3) mg/dl AST 41 (17-59) U/L ALT 53 (21-72) U/L Alkaline Phosphatase 100 (38-126) U/L Total Protein 4.5 L (6.3-8.2) G/DL Albumin 2.1 L (3.5-5.0) g/dL Globulin 2.4 (2.2-3.9) gm/dL Albumin/Globulin Ratio 0.9 L (1.0-2.1) 12/07/16 12/07/16 12/07/16 Range/Units 21:31 15:58 10:57 WBC (4.8-10.8) K/uL RBC (4.40-5.90) Mil/uL Hgb (12.0-18.0) g/dL Hct (35.0-51.0) % MCV (80.0-94.0) fl MCH (27.0-31.0) pg MCHC (33.0-37.0) g/dL RDW (11.5-14.5) % Plt Count (130-400) K/uL PT (9.6-11.2) SECONDS INR (0.92-1.08) pCO2 (35-45) mm/Hg pO2 (80-100) mm/Hg HCO3 (21-28) mmol/L ABG pH (7.35-7.45) ABG Total CO2 (22-28) mmol/L ABG O2 Saturation (95-98) % ABG O2 Content (15-23) ML/dL ABG Base Excess (-2.0-3.0) mmol/L ABG Hemoglobin (11.7-17.4) g/dL ABG Carboxyhemoglobin (0.5-1.5) % POC ABG HHb (Measured) (0.0-5.0) % ABG Methemoglobin (0.0-3.0) % ABG O2 Capacity (16-24) mL/dL Emmanuel Test A-a O2 Difference mm/Hg Hgb O2 Saturation (95.0-98.0) % FiO2 % PEEP Pressure Support Sodium (132-148) mmol/l Potassium (3.6-5.0) MMOL/L Chloride (98-107) mmol/L Carbon Dioxide (22-30) mmol/L Anion Gap (10-20) BUN (9-20) mg/dl Creatinine (0.8-1.5) mg/dL Est GFR ( Amer) Est GFR (Non-Af Amer) POC Glucose (mg/dL) 136 H 117 H 138 H (65-110) mg/dL Random Glucose (75-110) mg/dL Calcium (8.4-10.2) mg/dL Total Bilirubin (0.2-1.3) mg/dl AST (17-59) U/L ALT (21-72) U/L Alkaline Phosphatase (38-126) U/L Total Protein (6.3-8.2) G/DL Albumin (3.5-5.0) g/dL Globulin (2.2-3.9) gm/dL Albumin/Globulin Ratio (1.0-2.1) 12/06/16 12/06/16 12/06/16 Range/Units 16:21 10:54 05:06 WBC (4.8-10.8) K/uL RBC (4.40-5.90) Mil/uL Hgb (12.0-18.0) g/dL Hct (35.0-51.0) % MCV (80.0-94.0) fl MCH (27.0-31.0) pg MCHC (33.0-37.0) g/dL RDW (11.5-14.5) % Plt Count (130-400) K/uL PT (9.6-11.2) SECONDS INR (0.92-1.08) pCO2 (35-45) mm/Hg pO2 (80-100) mm/Hg HCO3 (21-28) mmol/L ABG pH (7.35-7.45) ABG Total CO2 (22-28) mmol/L ABG O2 Saturation (95-98) % ABG O2 Content (15-23) ML/dL ABG Base Excess (-2.0-3.0) mmol/L ABG Hemoglobin (11.7-17.4) g/dL ABG Carboxyhemoglobin (0.5-1.5) % POC ABG HHb (Measured) (0.0-5.0) % ABG Methemoglobin (0.0-3.0) % ABG O2 Capacity (16-24) mL/dL Emmanuel Test A-a O2 Difference mm/Hg Hgb O2 Saturation (95.0-98.0) % FiO2 % PEEP Pressure Support Sodium (132-148) mmol/l Potassium (3.6-5.0) MMOL/L Chloride (98-107) mmol/L Carbon Dioxide (22-30) mmol/L Anion Gap (10-20) BUN (9-20) mg/dl Creatinine (0.8-1.5) mg/dL Est GFR ( Amer) Est GFR (Non-Af Amer) POC Glucose (mg/dL) 130 H 148 H 135 H (65-110) mg/dL Random Glucose (75-110) mg/dL Calcium (8.4-10.2) mg/dL Total Bilirubin (0.2-1.3) mg/dl AST (17-59) U/L ALT (21-72) U/L Alkaline Phosphatase (38-126) U/L Total Protein (6.3-8.2) G/DL Albumin (3.5-5.0) g/dL Globulin (2.2-3.9) gm/dL Albumin/Globulin Ratio (1.0-2.1) 12/05/16 12/05/16 Range/Units 21:46 15:55 WBC (4.8-10.8) K/uL RBC (4.40-5.90) Mil/uL Hgb (12.0-18.0) g/dL Hct (35.0-51.0) % MCV (80.0-94.0) fl MCH (27.0-31.0) pg MCHC (33.0-37.0) g/dL RDW (11.5-14.5) % Plt Count (130-400) K/uL PT (9.6-11.2) SECONDS INR (0.92-1.08) pCO2 (35-45) mm/Hg pO2 (80-100) mm/Hg HCO3 (21-28) mmol/L ABG pH (7.35-7.45) ABG Total CO2 (22-28) mmol/L ABG O2 Saturation (95-98) % ABG O2 Content (15-23) ML/dL ABG Base Excess (-2.0-3.0) mmol/L ABG Hemoglobin (11.7-17.4) g/dL ABG Carboxyhemoglobin (0.5-1.5) % POC ABG HHb (Measured) (0.0-5.0) % ABG Methemoglobin (0.0-3.0) % ABG O2 Capacity (16-24) mL/dL Emmanuel Test A-a O2 Difference mm/Hg Hgb O2 Saturation (95.0-98.0) % FiO2 % PEEP Pressure Support Sodium (132-148) mmol/l Potassium (3.6-5.0) MMOL/L Chloride (98-107) mmol/L Carbon Dioxide (22-30) mmol/L Anion Gap (10-20) BUN (9-20) mg/dl Creatinine (0.8-1.5) mg/dL Est GFR ( Amer) Est GFR (Non-Af Amer) POC Glucose (mg/dL) 156 H 105 (65-110) mg/dL Random Glucose (75-110) mg/dL Calcium (8.4-10.2) mg/dL Total Bilirubin (0.2-1.3) mg/dl AST (17-59) U/L ALT (21-72) U/L Alkaline Phosphatase (38-126) U/L Total Protein (6.3-8.2) G/DL Albumin (3.5-5.0) g/dL Globulin (2.2-3.9) gm/dL Albumin/Globulin Ratio (1.0-2.1) Laboratory Results - last 24 hr 12/05/16 12/05/16 12/06/16 15:55 21:46 05:06 WBC RBC Hgb Hct MCV MCH MCHC RDW Plt Count PT INR pCO2 pO2 HCO3 ABG pH ABG Total CO2 ABG O2 Saturation ABG O2 Content ABG Base Excess ABG Hemoglobin ABG Carboxyhemoglobin POC ABG HHb (Measured) ABG Methemoglobin ABG O2 Capacity Emmanuel Test A-a O2 Difference Hgb O2 Saturation FiO2 PEEP Pressure Support Sodium Potassium Chloride Carbon Dioxide Anion Gap BUN Creatinine Est GFR ( Amer) Est GFR (Non-Af Amer) POC Glucose (mg/dL) 105 156 H 135 H Random Glucose Calcium Total Bilirubin AST ALT Alkaline Phosphatase Total Protein Albumin Globulin Albumin/Globulin Ratio 12/06/16 12/06/16 12/07/16 10:54 16:21 10:57 WBC RBC Hgb Hct MCV MCH MCHC RDW Plt Count PT INR pCO2 pO2 HCO3 ABG pH ABG Total CO2 ABG O2 Saturation ABG O2 Content ABG Base Excess ABG Hemoglobin ABG Carboxyhemoglobin POC ABG HHb (Measured) ABG Methemoglobin ABG O2 Capacity Emmanuel Test A-a O2 Difference Hgb O2 Saturation FiO2 PEEP Pressure Support Sodium Potassium Chloride Carbon Dioxide Anion Gap BUN Creatinine Est GFR ( Amer) Est GFR (Non-Af Amer) POC Glucose (mg/dL) 148 H 130 H 138 H Random Glucose Calcium Total Bilirubin AST ALT Alkaline Phosphatase Total Protein Albumin Globulin Albumin/Globulin Ratio 12/07/16 12/07/16 12/08/16 15:58 21:31 04:20 WBC RBC Hgb Hct MCV MCH MCHC RDW Plt Count PT 14.9 H INR 1.43 H pCO2 pO2 HCO3 ABG pH ABG Total CO2 ABG O2 Saturation ABG O2 Content ABG Base Excess ABG Hemoglobin ABG Carboxyhemoglobin POC ABG HHb (Measured) ABG Methemoglobin ABG O2 Capacity Emmanuel Test A-a O2 Difference Hgb O2 Saturation FiO2 PEEP Pressure Support Sodium Potassium Chloride Carbon Dioxide Anion Gap BUN Creatinine Est GFR ( Amer) Est GFR (Non-Af Amer) POC Glucose (mg/dL) 117 H 136 H Random Glucose Calcium Total Bilirubin AST ALT Alkaline Phosphatase Total Protein Albumin Globulin Albumin/Globulin Ratio 12/08/16 12/08/16 12/08/16 04:20 04:20 05:30 WBC 8.8 RBC 3.40 L Hgb 10.0 L Hct 30.2 L MCV 88.8 MCH 29.2 MCHC 32.9 L RDW 16.1 H Plt Count 154 PT INR pCO2 31 L pO2 129 H HCO3 26.0 ABG pH 7.50 H ABG Total CO2 25.2 ABG O2 Saturation 99.6 H ABG O2 Content 14.2 L ABG Base Excess 1.4 ABG Hemoglobin 10.3 L ABG Carboxyhemoglobin 1.6 H POC ABG HHb (Measured) 0.4 ABG Methemoglobin 1.8 ABG O2 Capacity 14.3 L Emmanuel Test Yes A-a O2 Difference 117.0 Hgb O2 Saturation 96.2 FiO2 40.0 PEEP 5 Pressure Support 10 Sodium 138 Potassium 3.7 Chloride 109 H Carbon Dioxide 23 Anion Gap 10 BUN 59 H Creatinine 1.5 Est GFR ( Amer) 56 Est GFR (Non-Af Amer) 46 POC Glucose (mg/dL) Random Glucose 82 Calcium 7.9 L Total Bilirubin 0.6 AST 41 ALT 53 Alkaline Phosphatase 100 Total Protein 4.5 L Albumin 2.1 L Globulin 2.4 Albumin/Globulin Ratio 0.9 L 12/08/16 12/08/16 06:42 11:27 WBC RBC Hgb Hct MCV MCH MCHC RDW Plt Count PT INR pCO2 pO2 HCO3 ABG pH ABG Total CO2 ABG O2 Saturation ABG O2 Content ABG Base Excess ABG Hemoglobin ABG Carboxyhemoglobin POC ABG HHb (Measured) ABG Methemoglobin ABG O2 Capacity Emmanuel Test A-a O2 Difference Hgb O2 Saturation FiO2 PEEP Pressure Support Sodium Potassium Chloride Carbon Dioxide Anion Gap BUN Creatinine Est GFR ( Amer) Est GFR (Non-Af Amer) POC Glucose (mg/dL) 91 109 Random Glucose Calcium Total Bilirubin AST ALT Alkaline Phosphatase Total Protein Albumin Globulin Albumin/Globulin Ratio Fingerstick Blood Sugar Results: 109 Assessment/Plan (1) Anoxic brain injury Assessment and plan: 71 yo M. PMHx Fever, Productive Cough and well known to have a h/o A fib, BPH, COPD, CHF, CAD, DM type 2, HTN, and previous code blue in the past. Continue current level of care, with PEG tube feeds, when necessary bronchodilators, pulmonary toileting. Patient supposed to receive trach placement, will hopefully be done tomorrow. Patient can then be discharged to long-term care facility. Patient's overall prognosis is extremely poor. Critical care time spent 35 minutes. Current Visit: Yes Status: Acute Priority: High Comment: Poor prognosis Pall Care consult
--- NOTE | 2016-12-08 20:54 | CP.PCM.PN ---
Subjective - Date & Time of Evaluation Date of Evaluation: 12/08/16 Time of Evaluation: 22:22 - Subjective Subjective: Above noted Objective - Vital Signs/Intake and Output Vital Signs (last 24 hours): Temp Pulse Resp BP Pulse Ox 98.4 F 92 H 25 H 135/74 100 12/08/16 16:00 12/08/16 18:00 12/08/16 18:00 12/08/16 18:00 12/08/16 18:00 Intake and Output: 12/08/16 12/09/16 18:59 06:59 Intake Total 570 Output Total 575 Balance -5 - Medications Medications: Current Medications Albuterol Sulfate (Albuterol 0.083% Inhal Mary (2.5 Mg/3 Ml) Ud) 2.5 mg INH RQ4 PRN PRN Reason: Shortness of Breath Last Admin: 12/08/16 20:43 Dose: 2.5 mg Albuterol/Ipratropium (Duoneb 3 Mg/0.5 Mg (3 Ml) Ud) [address] [facility] Last Admin: 12/08/16 20:30 Dose: 3 ml Amantadine HCl (Amantadine 100 Mg Cap) [address] [facility] Last Admin: 12/08/16 17:16 Dose: 100 mg Collagenase (Santyl) 1 applic TOP 0900,2100 [facility] Last Admin: 12/08/16 08:47 Dose: 1 applic Dimethicone (Proshield Plus Skin Protectant) 1 applic TOP 0900,2100 [facility] Last Admin: 12/08/16 08:47 Dose: 1 applic Metronidazole (Flagyl 500mg/100ml Ns) 100 mls @ 100 mls/hr IVPB Q8 [facility] Last Admin: 12/08/16 17:16 Dose: 100 mls/hr Methylphenidate HCl (Ritalin) [address] [facility] Last Admin: 12/08/16 17:28 Dose: 10 mg Metoprolol Tartrate (Lopressor) [address] [facility] Last Admin: 12/08/16 08:43 Dose: 25 mg Ondansetron HCl (Zofran Odt) [address] [facility] Last Admin: 11/24/16 16:40 Dose: 4 mg Silver Sulfadiazine (Silvadene 1% 50 Gm) 1 applic TOP 0900,2100 [facility] Last Admin: 12/08/16 08:47 Dose: 1 applic Vancomycin HCl (Vancocin (Oral/Rectal Use)) 125 mg PO Q8 [facility] Last Admin: 12/08/16 17:18 Dose: 125 mg - Labs Labs: 12/08/16 04:20 12/08/16 04:20 PT 14.9 SECONDS (9.6-11.2) H 12/08/16 04:20 INR 1.43 (0.92-1.08) H 12/08/16 04:20 APTT 33.9 SECONDS (23.3-32.5) H D 11/24/16 06:00 - Respiratory Exam Respiratory Exam: NORMAL BREATHING PATTERN - Cardiovascular Exam Cardiovascular Exam: REGULAR RHYTHM - GI/Abdominal Exam GI & Abdominal Exam: Normal Bowel Sounds Assessment and Plan - Assessment and Plan (Free Text) Assessment: S/P Acute Respiratory Failure Asystole Intubated Tracheostomy?? Aspiration?? HX COPD Klebsiella Pneumonia MDR ABX IVF Steroids Pulmonary ID Anoxic encephalopathy 2 to above Neuro note appreciated S/P Asystole 2 to Pulmonary dx (S/P V-fib/ V-tach 2 to pulmonary dx) A-fib CAD S/P CABG Amiodorone Cardiology SMITA/ CKD 2 to Sepsis acute ischemia ATN Improving Nephrology Anemia etiol? Chronic dx CKD + guaic Transfusion HX Hyperkalemia and hypokalemia etiol ?? Adrenal insufficiency?? Hx of Orthostatic Hypotension at RI ACTH Cortisol level ?? Florinef d/c Endocronology Swallowing?? aspiration?? PEG Jevity and oral feedings Hx s/p + C-diff + Ag -toxin Hx Dec oral intake improved on Megace Sick Euthyroid syndrome Endo Chronic chest wall pain Pain meds
[2016-12-09] MEDS: metroNIDAZOLE 500mg/100ml NS 100 ML IVPB SCH ×3 (01:11→17:34)
[2016-12-09] MEDS: Vancomycin 500 mg (Oral/Rectal USE) PO SCH ×3 (01:12→17:33)
[2016-12-09] MEDS: Albuterol-Ipratrop 3 mg / 0.5 (3 ml) UD INH SCH ×4 (01:19→19:59)
[2016-12-09 05:02] LABS: HEMATOCRIT 30.7 % (35.0-51.0); MEAN CELL VOLUME 89.1 fl (80.0-94.0); MEAN CORPUSCULAR HEMOGLOBIN 28.6 pg (27.0-31.0); MEAN CORPUSCULAR HGB CONC 32.1 g/dL (33.0-37.0); RED CELL DISTRIBUTION WIDTH 16.7 % (11.5-14.5); WHITE BLOOD COUNT 8.8 K/uL (4.8-10.8)
[2016-12-09 05:18] LABS: ALB/GLOB RATIO 0.9 (1.0-2.1); BILIRUBIN,TOTAL 0.5 mg/dl (0.2-1.3); POTASSIUM 3.6 MMOL/L (3.6-5.0); TOTAL PROTEIN 4.6 G/DL (6.3-8.2)
[2016-12-09 05:25] LABS: ABG ALLEN TEST YES; ARTERIAL BLOOD GAS HCO3 25.5 mmol/L (21-28); ARTERIAL BLOOD GAS MODE CPAP; ARTERIAL BLOOD GAS O2 CAPACITY 14.4 mL/dL (16-24); ARTERIAL BLOOD GAS O2 CONTENT 14.4 ML/dL (15-23); ARTERIAL BLOOD GAS PH 7.51 (7.35-7.45); ARTERIAL BLOOD GAS PO2 155 mm/Hg (80-100); CARBOXYHEMOGLOBIN 1.4 % (0.5-1.5); METHEMOGLOBIN 1.5 % (0.0-3.0)
--- NOTE | 2016-12-09 08:47 | PN ---
DATE: 12/08/2016 ROOM: ICU room 423 This is a 71-year-old male with recent acute respiratory failure and endotracheally intubated and rem ains unresponsive at this time and is now being followed closely for metabolic management. His glyce levar levels are much improved at this time as he has been taken off all steroid therapy as noted. His glucose values have ranged from 91-109 and 136 mg/dL. His latest chemistries show a BUN of 59, sodi um 138, potassium ____, chloride 109, CO2 of 23, glucose 82, and creatinine 1.5. So, at this time, we will continue the present medical management as given with also enteral tube fee dings for nutritional supplementation to optimize ____. We will obtain serial chemistries and supple ment accordingly as needed. We will follow. Anabella Sebastian MD cc: [id number] TT: 12/08/2016 16:42:30 Confirmation # [id number] Dictation # [id number]
--- NOTE | 2016-12-09 10:08 | CP.PCM.PN ---
Subjective - Date & Time of Evaluation Date of Evaluation: 12/09/16 Time of Evaluation: 09:00 - Subjective Subjective: UNRESPONSIVE Objective - Vital Signs/Intake and Output Vital Signs (last 24 hours): Temp Pulse Resp BP Pulse Ox 98.0 F 103 H 28 H 159/94 H 100 12/09/16 08:10 12/09/16 08:35 12/09/16 08:10 12/09/16 08:35 12/09/16 08:10 Intake and Output: 12/09/16 12/09/16 06:59 18:59 Intake Total 570 Output Total 500 Balance 70 - Medications Medications: Current Medications Albuterol Sulfate (Albuterol 0.083% Inhal Mary (2.5 Mg/3 Ml) Ud) 2.5 mg INH RQ4 PRN PRN Reason: Shortness of Breath Last Admin: 11/23/16 03:48 Dose: 2.5 mg Albuterol/Ipratropium (Duoneb 3 Mg/0.5 Mg (3 Ml) Ud) 3 ml INH RQ6 [facility] Last Admin: 12/09/16 08:54 Dose: 3 ml Amantadine HCl (Amantadine 100 Mg Cap) 100 mg PO BID [facility] Last Admin: 12/09/16 09:13 Dose: 100 mg Metronidazole (Flagyl 500mg/100ml Ns) 100 mls @ 100 mls/hr IVPB Q8 [facility] Last Admin: 12/09/16 08:33 Dose: 100 mls/hr Methylphenidate HCl (Ritalin) 10 mg PO DAILY [facility] Last Admin: 12/09/16 09:13 Dose: 10 mg Metoprolol Tartrate (Lopressor) 25 mg PO Q12 [facility] Last Admin: 12/09/16 08:35 Dose: 25 mg Ondansetron HCl (Zofran Odt) 4 mg PEG Q8 [facility] Last Admin: 11/24/16 16:40 Dose: 4 mg Vancomycin HCl (Vancocin (Oral/Rectal Use)) 125 mg PO Q8 [facility] Last Admin: 12/09/16 08:39 Dose: 125 mg - Labs Labs: 12/09/16 04:20 12/09/16 04:20 PT 14.9 SECONDS (9.6-11.2) H 12/08/16 04:20 INR 1.43 (0.92-1.08) H 12/08/16 04:20 APTT 33.9 SECONDS (23.3-32.5) H D 11/24/16 06:00 - Respiratory Exam Respiratory Exam: Rhonchi - Cardiovascular Exam Cardiovascular Exam: Irregular Rhythm, +S1, +S2 - Additional Findings Additional findings: [employer] ATRIAL FIBRILLATION Assessment and Plan - Assessment and Plan (Free Text) Assessment: COPD WITH RESPIRATORY FAILURE PNEUMONIA CAD ATRIAL FIBRILLATION ANOXIC ENCEPHALOPATHY POOR PROGNOSIS Plan: CONTINUE MV, AMIODARONE AND METOPROLOL FOR TRACHEOSTOMY
--- NOTE | 2016-12-09 10:47 | CP.PCM.PN ---
Subjective - Date & Time of Evaluation Date of Evaluation: 12/09/16 Time of Evaluation: 10:44 - Subjective Subjective: Patient remained intubated Reported to me he may be going for tracheostomy Kidney function reviewed and shows serum creatinine stable around 1.5 Vital signs reviewed to be stable Chest few rhonchi The impression and plan Patient going for tracheostomy remain intubated and kidney function stable recovering somewhat from acute kidney injury Respiratory failure Objective - Vital Signs/Intake and Output Vital Signs (last 24 hours): Temp Pulse Resp BP Pulse Ox 98.0 F 103 H 28 H 159/94 H 100 12/09/16 08:10 12/09/16 08:35 12/09/16 08:10 12/09/16 08:35 12/09/16 08:10 Intake and Output: 12/09/16 12/09/16 06:59 18:59 Intake Total 570 Output Total 500 Balance 70 - Medications Medications: Current Medications Albuterol Sulfate (Albuterol 0.083% Inhal Mary (2.5 Mg/3 Ml) Ud) 2.5 mg INH RQ4 PRN PRN Reason: Shortness of Breath Last Admin: 11/23/16 03:48 Dose: 2.5 mg Albuterol/Ipratropium (Duoneb 3 Mg/0.5 Mg (3 Ml) Ud) 3 ml INH RQ6 [facility] Last Admin: 12/09/16 08:54 Dose: 3 ml Amantadine HCl (Amantadine 100 Mg Cap) 100 mg PO BID [facility] Last Admin: 12/09/16 09:13 Dose: 100 mg Metronidazole (Flagyl 500mg/100ml Ns) 100 mls @ 100 mls/hr IVPB Q8 [facility] Last Admin: 12/09/16 08:33 Dose: 100 mls/hr Methylphenidate HCl (Ritalin) 10 mg PO DAILY [facility] Last Admin: 12/09/16 09:13 Dose: 10 mg Metoprolol Tartrate (Lopressor) 25 mg PO Q12 [facility] Last Admin: 12/09/16 08:35 Dose: 25 mg Ondansetron HCl (Zofran Odt) 4 mg PEG Q8 [facility] Last Admin: 11/24/16 16:40 Dose: 4 mg Vancomycin HCl (Vancocin (Oral/Rectal Use)) 125 mg PO Q8 [facility] Last Admin: 12/09/16 08:39 Dose: 125 mg - Labs Labs: 05/23/17 04:20 12/09/16 04:20 PT 14.9 SECONDS (9.6-11.2) H 12/08/16 04:20 INR 1.43 (0.92-1.08) H 12/08/16 04:20 APTT 33.9 SECONDS (23.3-32.5) H D 11/24/16 06:00
--- NOTE | 2016-12-09 11:16 | CP.CCUPN ---
CCU Subjective - Physician Review Events Since Last Encounter (Free Text): 12/09/16 11:14 no changes clinically, patient still comatose. CCU Objective - Vital Signs / Intake & Output Vital Signs (Last 4 hours): Vital Signs Temp Pulse Resp BP Pulse Ox 12/09/16 08:35 103 H 159/94 H 12/09/16 08:10 98.0 F 102 H 28 H 159/94 H 100 Intake and Output (Last 8hrs): Intake & Output 12/08/16 12/09/16 12/09/16 22:59 06:59 14:59 Intake Total 560 290 Output Total 200 500 Balance 360 -210 Intake: IV 0 0 Intake, Piggyback 100 Tube Feeding 360 90 Free Water Flush 200 100 Output: Gastric Amount 0 Stomach 0 Urine 200 500 Urethral ([place]) 200 500 - Physical Exam Physical Exam Limitations: Positive for: Altered Mental Status Head: Positive for: Atraumatic, Normocephalic Pupils: Positive for: PERRL Extroacular Muscles: Positive for: EOMI Conjunctiva: Positive for: Normal Mouth: Positive for: Moist Mucous Membranes Pharnyx: Positive for: Normal, Other (ET tube in place) Nose (External): Positive for: Atraumatic Neck: Positive for: Normal Range of Motion Respiratory/Chest: Positive for: Good Air Exchange, Wheezes, Decreased Breath Sounds, Rhonchi. Negative for: Clear to Auscultation, Respiratory Distress, Accessory Muscle Use Cardiovascular: Positive for: Irregular Rhythm, Peripheal Pulses Present. Negative for: Murmurs, Tachycardic, Bradycardic Abdomen: Positive for: Distention, Normal Bowel Sounds. Negative for: Tenderness Upper Extremity: Positive for: Normal Inspection Lower Extremity: Positive for: Normal Inspection, Edema Neurological: Positive for: Other ( Unresponsive) Skin: Positive for: Warm, Dry, Rashes, Normal Color Psychiatric: Positive for: Alert, Oriented x 3, Normal Insight, Normal Concentration - Medications Active Medications: Active Medications Generic Name Dose Route Start Last Admin Trade Name Freq PRN Reason Stop Dose Admin Albuterol Sulfate 2.5 mg 11/22/16 14:14 11/23/16 03:48 Albuterol 0.083% Inhal Mary (2.5 Mg/3 Ml) Ud INH 2.5 mg RQ4 PRN Administration Shortness of Breath Albuterol/Ipratropium 3 ml 11/24/16 14:00 12/09/16 08:54 Duoneb 3 Mg/0.5 Mg (3 Ml) Ud INH 3 ml RQ6 OTTONIEL Administration Amantadine HCl 100 mg 12/08/16 17:00 12/09/16 09:13 Amantadine 100 Mg Cap PO 100 mg BID OTTONIEL Administration Metronidazole 100 mls @ 100 mls/hr 12/02/16 12:15 12/09/16 08:33 Flagyl 500mg/100ml Ns IVPB 100 mls/hr Q8 OTTONIEL Administration Methylphenidate HCl 10 mg 12/08/16 14:15 12/09/16 09:13 Ritalin PO 10 mg DAILY OTTONIEL Administration Metoprolol Tartrate 25 mg 11/28/16 21:00 12/09/16 08:35 Lopressor PO 25 mg Q12 OTTONIEL Administration Ondansetron HCl 4 mg 11/22/16 17:00 11/24/16 16:40 Zofran Odt PEG 4 mg Q8 OTTONIEL Administration Vancomycin HCl 125 mg 12/02/16 17:00 12/09/16 08:39 Vancocin (Oral/Rectal Use) PO 125 mg Q8 OTTONIEL Administration - Patient Studies Lab Studies: Lab Studies 12/09/16 12/09/16 12/09/16 Range/Units 05:35 04:58 04:20 WBC (4.8-10.8) K/uL RBC (4.40-5.90) Mil/uL Hgb (12.0-18.0) g/dL Hct (35.0-51.0) % MCV (80.0-94.0) fl MCH (27.0-31.0) pg MCHC (33.0-37.0) g/dL RDW (11.5-14.5) % Plt Count (130-400) K/uL pCO2 29 L (35-45) mm/Hg pO2 155 H (80-100) mm/Hg HCO3 25.5 (21-28) mmol/L ABG pH 7.51 H (7.35-7.45) ABG Total CO2 24.0 (22-28) mmol/L ABG O2 Saturation 100.0 H (95-98) % ABG O2 Content 14.4 L (15-23) ML/dL ABG Base Excess 0.7 (-2.0-3.0) mmol/L ABG Hemoglobin 10.3 L (11.7-17.4) g/dL ABG Carboxyhemoglobin 1.4 (0.5-1.5) % POC ABG HHb (Measured) 0.0 (0.0-5.0) % ABG Methemoglobin 1.5 (0.0-3.0) % ABG O2 Capacity 14.4 L (16-24) mL/dL Emmanuel Test Yes A-a O2 Difference 94.0 mm/Hg Hgb O2 Saturation 97.0 (95.0-98.0) % Vent Mode Cpap FiO2 40.0 % Pressure Support 10 CPAP 5 Sodium 139 (132-148) mmol/l Potassium 3.6 (3.6-5.0) MMOL/L Chloride 110 H (98-107) mmol/L Carbon Dioxide 23 (22-30) mmol/L Anion Gap 10 (10-20) BUN 54 H (9-20) mg/dl Creatinine 1.5 (0.8-1.5) mg/dL Est GFR ( Amer) 56 Est GFR (Non-Af Amer) 46 POC Glucose (mg/dL) 108 (65-110) mg/dL Random Glucose 94 (75-110) mg/dL Calcium 8.0 L (8.4-10.2) mg/dL Total Bilirubin 0.5 (0.2-1.3) mg/dl AST 34 (17-59) U/L ALT 42 (21-72) U/L Alkaline Phosphatase 104 (38-126) U/L Total Protein 4.6 L (6.3-8.2) G/DL Albumin 2.2 L (3.5-5.0) g/dL Globulin 2.4 (2.2-3.9) gm/dL Albumin/Globulin Ratio 0.9 L (1.0-2.1) 12/09/16 12/08/16 12/08/16 Range/Units 04:20 21:27 16:12 WBC 8.8 (4.8-10.8) K/uL RBC 3.44 L (4.40-5.90) Mil/uL Hgb 9.9 L (12.0-18.0) g/dL Hct 30.7 L (35.0-51.0) % MCV 89.1 (80.0-94.0) fl MCH 28.6 (27.0-31.0) pg MCHC 32.1 L (33.0-37.0) g/dL RDW 16.7 H (11.5-14.5) % Plt Count 161 (130-400) K/uL pCO2 (35-45) mm/Hg pO2 (80-100) mm/Hg HCO3 (21-28) mmol/L ABG pH (7.35-7.45) ABG Total CO2 (22-28) mmol/L ABG O2 Saturation (95-98) % ABG O2 Content (15-23) ML/dL ABG Base Excess (-2.0-3.0) mmol/L ABG Hemoglobin (11.7-17.4) g/dL ABG Carboxyhemoglobin (0.5-1.5) % POC ABG HHb (Measured) (0.0-5.0) % ABG Methemoglobin (0.0-3.0) % ABG O2 Capacity (16-24) mL/dL Emmanuel Test A-a O2 Difference mm/Hg Hgb O2 Saturation (95.0-98.0) % Vent Mode FiO2 % Pressure Support CPAP Sodium (132-148) mmol/l Potassium (3.6-5.0) MMOL/L Chloride (98-107) mmol/L Carbon Dioxide (22-30) mmol/L Anion Gap (10-20) BUN (9-20) mg/dl Creatinine (0.8-1.5) mg/dL Est GFR ( Amer) Est GFR (Non-Af Amer) POC Glucose (mg/dL) 139 H 99 (65-110) mg/dL Random Glucose (75-110) mg/dL Calcium (8.4-10.2) mg/dL Total Bilirubin (0.2-1.3) mg/dl AST (17-59) U/L ALT (21-72) U/L Alkaline Phosphatase (38-126) U/L Total Protein (6.3-8.2) G/DL Albumin (3.5-5.0) g/dL Globulin (2.2-3.9) gm/dL Albumin/Globulin Ratio (1.0-2.1) 0512/08/16 12/07/16 Range/Units 11:27 06:42 21:31 WBC (4.8-10.8) K/uL RBC (4.40-5.90) Mil/uL Hgb (12.0-18.0) g/dL Hct (35.0-51.0) % MCV (80.0-94.0) fl MCH (27.0-31.0) pg MCHC (33.0-37.0) g/dL RDW (11.5-14.5) % Plt Count (130-400) K/uL pCO2 (35-45) mm/Hg pO2 (80-100) mm/Hg HCO3 (21-28) mmol/L ABG pH (7.35-7.45) ABG Total CO2 (22-28) mmol/L ABG O2 Saturation (95-98) % ABG O2 Content (15-23) ML/dL ABG Base Excess (-2.0-3.0) mmol/L ABG Hemoglobin (11.7-17.4) g/dL ABG Carboxyhemoglobin (0.5-1.5) % POC ABG HHb (Measured) (0.0-5.0) % ABG Methemoglobin (0.0-3.0) % ABG O2 Capacity (16-24) mL/dL Emmanuel Test A-a O2 Difference mm/Hg Hgb O2 Saturation (95.0-98.0) % Vent Mode FiO2 % Pressure Support CPAP Sodium (132-148) mmol/l Potassium (3.6-5.0) MMOL/L Chloride (98-107) mmol/L Carbon Dioxide (22-30) mmol/L Anion Gap (10-20) BUN (9-20) mg/dl Creatinine (0.8-1.5) mg/dL Est GFR ( Amer) Est GFR (Non-Af Amer) POC Glucose (mg/dL) 109 91 136 H (65-110) mg/dL Random Glucose (75-110) mg/dL Calcium (8.4-10.2) mg/dL Total Bilirubin (0.2-1.3) mg/dl AST (17-59) U/L ALT (21-72) U/L Alkaline Phosphatase (38-126) U/L Total Protein (6.3-8.2) G/DL Albumin (3.5-5.0) g/dL Globulin (2.2-3.9) gm/dL Albumin/Globulin Ratio (1.0-2.1) 12/07/16 12/07/16 12/06/16 Range/Units 15:58 10:57 16:21 WBC (4.8-10.8) K/uL RBC (4.40-5.90) Mil/uL Hgb (12.0-18.0) g/dL Hct (35.0-51.0) % MCV (80.0-94.0) fl MCH (27.0-31.0) pg MCHC (33.0-37.0) g/dL RDW (11.5-14.5) % Plt Count (130-400) K/uL pCO2 (35-45) mm/Hg pO2 (80-100) mm/Hg HCO3 (21-28) mmol/L ABG pH (7.35-7.45) ABG Total CO2 (22-28) mmol/L ABG O2 Saturation (95-98) % ABG O2 Content (15-23) ML/dL ABG Base Excess (-2.0-3.0) mmol/L ABG Hemoglobin (11.7-17.4) g/dL ABG Carboxyhemoglobin (0.5-1.5) % POC ABG HHb (Measured) (0.0-5.0) % ABG Methemoglobin (0.0-3.0) % ABG O2 Capacity (16-24) mL/dL Emmanuel Test A-a O2 Difference mm/Hg Hgb O2 Saturation (95.0-98.0) % Vent Mode FiO2 % Pressure Support CPAP Sodium (132-148) mmol/l Potassium (3.6-5.0) MMOL/L Chloride (98-107) mmol/L Carbon Dioxide (22-30) mmol/L Anion Gap (10-20) BUN (9-20) mg/dl Creatinine (0.8-1.5) mg/dL Est GFR ( Amer) Est GFR (Non-Af Amer) POC Glucose (mg/dL) 117 H 138 H 130 H (65-110) mg/dL Random Glucose (75-110) mg/dL Calcium (8.4-10.2) mg/dL Total Bilirubin (0.2-1.3) mg/dl AST (17-59) U/L ALT (21-72) U/L Alkaline Phosphatase (38-126) U/L Total Protein (6.3-8.2) G/DL Albumin (3.5-5.0) g/dL Globulin (2.2-3.9) gm/dL Albumin/Globulin Ratio (1.0-2.1) 12/06/16 12/06/16 12/05/16 Range/Units 10:54 05:06 21:46 WBC (4.8-10.8) K/uL RBC (4.40-5.90) Mil/uL Hgb (12.0-18.0) g/dL Hct (35.0-51.0) % MCV (80.0-94.0) fl MCH (27.0-31.0) pg MCHC (33.0-37.0) g/dL RDW (11.5-14.5) % Plt Count (130-400) K/uL pCO2 (35-45) mm/Hg pO2 (80-100) mm/Hg HCO3 (21-28) mmol/L ABG pH (7.35-7.45) ABG Total CO2 (22-28) mmol/L ABG O2 Saturation (95-98) % ABG O2 Content (15-23) ML/dL ABG Base Excess (-2.0-3.0) mmol/L ABG Hemoglobin (11.7-17.4) g/dL ABG Carboxyhemoglobin (0.5-1.5) % POC ABG HHb (Measured) (0.0-5.0) % ABG Methemoglobin (0.0-3.0) % ABG O2 Capacity (16-24) mL/dL Emmanuel Test A-a O2 Difference mm/Hg Hgb O2 Saturation (95.0-98.0) % Vent Mode FiO2 % Pressure Support CPAP Sodium (132-148) mmol/l Potassium (3.6-5.0) MMOL/L Chloride (98-107) mmol/L Carbon Dioxide (22-30) mmol/L Anion Gap (10-20) BUN (9-20) mg/dl Creatinine (0.8-1.5) mg/dL Est GFR ( Amer) Est GFR (Non-Af Amer) POC Glucose (mg/dL) 148 H 135 H 156 H (65-110) mg/dL Random Glucose (75-110) mg/dL Calcium (8.4-10.2) mg/dL Total Bilirubin (0.2-1.3) mg/dl AST (17-59) U/L ALT (21-72) U/L Alkaline Phosphatase (38-126) U/L Total Protein (6.3-8.2) G/DL Albumin (3.5-5.0) g/dL Globulin (2.2-3.9) gm/dL Albumin/Globulin Ratio (1.0-2.1) 12/05/16 Range/Units 15:55 WBC (4.8-10.8) K/uL RBC (4.40-5.90) Mil/uL Hgb (12.0-18.0) g/dL Hct (35.0-51.0) % MCV (80.0-94.0) fl MCH (27.0-31.0) pg MCHC (33.0-37.0) g/dL RDW (11.5-14.5) % Plt Count (130-400) K/uL pCO2 (35-45) mm/Hg pO2 (80-100) mm/Hg HCO3 (21-28) mmol/L ABG pH (7.35-7.45) ABG Total CO2 (22-28) mmol/L ABG O2 Saturation (95-98) % ABG O2 Content (15-23) ML/dL ABG Base Excess (-2.0-3.0) mmol/L ABG Hemoglobin (11.7-17.4) g/dL ABG Carboxyhemoglobin (0.5-1.5) % POC ABG HHb (Measured) (0.0-5.0) % ABG Methemoglobin (0.0-3.0) % ABG O2 Capacity (16-24) mL/dL Emmanuel Test A-a O2 Difference mm/Hg Hgb O2 Saturation (95.0-98.0) % Vent Mode FiO2 % Pressure Support CPAP Sodium (132-148) mmol/l Potassium (3.6-5.0) MMOL/L Chloride (98-107) mmol/L Carbon Dioxide (22-30) mmol/L Anion Gap (10-20) BUN (9-20) mg/dl Creatinine (0.8-1.5) mg/dL Est GFR ( Amer) Est GFR (Non-Af Amer) POC Glucose (mg/dL) 105 (65-110) mg/dL Random Glucose (75-110) mg/dL Calcium (8.4-10.2) mg/dL Total Bilirubin (0.2-1.3) mg/dl AST (17-59) U/L ALT (21-72) U/L Alkaline Phosphatase (38-126) U/L Total Protein (6.3-8.2) G/DL Albumin (3.5-5.0) g/dL Globulin (2.2-3.9) gm/dL Albumin/Globulin Ratio (1.0-2.1) Laboratory Results - last 24 hr 12/05/16 12/05/16 12/06/16 15:55 21:46 05:06 WBC RBC Hgb Hct MCV MCH MCHC RDW Plt Count pCO2 pO2 HCO3 ABG pH ABG Total CO2 ABG O2 Saturation ABG O2 Content ABG Base Excess ABG Hemoglobin ABG Carboxyhemoglobin POC ABG HHb (Measured) ABG Methemoglobin ABG O2 Capacity Emmanuel Test A-a O2 Difference Hgb O2 Saturation Vent Mode FiO2 Pressure Support CPAP Sodium Potassium Chloride Carbon Dioxide Anion Gap BUN Creatinine Est GFR ( Amer) Est GFR (Non-Af Amer) POC Glucose (mg/dL) 105 156 H 135 H Random Glucose Calcium Total Bilirubin AST ALT Alkaline Phosphatase Total Protein Albumin Globulin Albumin/Globulin Ratio 12/06/16 12/06/16 12/07/16 10:54 16:21 10:57 WBC RBC Hgb Hct MCV MCH MCHC RDW Plt Count pCO2 pO2 HCO3 ABG pH ABG Total CO2 ABG O2 Saturation ABG O2 Content ABG Base Excess ABG Hemoglobin ABG Carboxyhemoglobin POC ABG HHb (Measured) ABG Methemoglobin ABG O2 Capacity Emmanuel Test A-a O2 Difference Hgb O2 Saturation Vent Mode FiO2 Pressure Support CPAP Sodium Potassium Chloride Carbon Dioxide Anion Gap BUN Creatinine Est GFR ( Amer) Est GFR (Non-Af Amer) POC Glucose (mg/dL) 148 H 130 H 138 H Random Glucose Calcium Total Bilirubin AST ALT Alkaline Phosphatase Total Protein Albumin Globulin Albumin/Globulin Ratio 12/07/16 12/07/16 12/08/16 15:58 21:31 06:42 WBC RBC Hgb Hct MCV MCH MCHC RDW Plt Count pCO2 pO2 HCO3 ABG pH ABG Total CO2 ABG O2 Saturation ABG O2 Content ABG Base Excess ABG Hemoglobin ABG Carboxyhemoglobin POC ABG HHb (Measured) ABG Methemoglobin ABG O2 Capacity Emmanuel Test A-a O2 Difference Hgb O2 Saturation Vent Mode FiO2 Pressure Support CPAP Sodium Potassium Chloride Carbon Dioxide Anion Gap BUN Creatinine Est GFR ( Amer) Est GFR (Non-Af Amer) POC Glucose (mg/dL) 117 H 136 H 91 Random Glucose Calcium Total Bilirubin AST ALT Alkaline Phosphatase Total Protein Albumin Globulin Albumin/Globulin Ratio 12/08/16 12/08/16 12/08/16 11:27 16:12 21:27 WBC RBC Hgb Hct MCV MCH MCHC RDW Plt Count pCO2 pO2 HCO3 ABG pH ABG Total CO2 ABG O2 Saturation ABG O2 Content ABG Base Excess ABG Hemoglobin ABG Carboxyhemoglobin POC ABG HHb (Measured) ABG Methemoglobin ABG O2 Capacity Emmanuel Test A-a O2 Difference Hgb O2 Saturation Vent Mode FiO2 Pressure Support CPAP Sodium Potassium Chloride Carbon Dioxide Anion Gap BUN Creatinine Est GFR ( Amer) Est GFR (Non-Af Amer) POC Glucose (mg/dL) 109 99 139 H Random Glucose Calcium Total Bilirubin AST ALT Alkaline Phosphatase Total Protein Albumin Globulin Albumin/Globulin Ratio 12/09/16 12/09/16 12/09/16 04:20 04:20 04:58 WBC 8.8 RBC 3.44 L Hgb 9.9 L Hct 30.7 L MCV 89.1 MCH 28.6 MCHC 32.1 L RDW 16.7 H Plt Count 161 pCO2 29 L pO2 155 H HCO3 25.5 ABG pH 7.51 H ABG Total CO2 24.0 ABG O2 Saturation 100.0 H ABG O2 Content 14.4 L ABG Base Excess 0.7 ABG Hemoglobin 10.3 L ABG Carboxyhemoglobin 1.4 POC ABG HHb (Measured) 0.0 ABG Methemoglobin 1.5 ABG O2 Capacity 14.4 L Emmanuel Test Yes A-a O2 Difference 94.0 Hgb O2 Saturation 97.0 Vent Mode Cpap FiO2 40.0 Pressure Support 10 CPAP 5 Sodium 139 Potassium 3.6 Chloride 110 H Carbon Dioxide 23 Anion Gap 10 BUN 54 H Creatinine 1.5 Est GFR ( Amer) 56 Est GFR (Non-Af Amer) 46 POC Glucose (mg/dL) Random Glucose 94 Calcium 8.0 L Total Bilirubin 0.5 AST 34 ALT 42 Alkaline Phosphatase 104 Total Protein 4.6 L Albumin 2.2 L Globulin 2.4 Albumin/Globulin Ratio 0.9 L 12/09/16 05:35 WBC RBC Hgb Hct MCV MCH MCHC RDW Plt Count pCO2 pO2 HCO3 ABG pH ABG Total CO2 ABG O2 Saturation ABG O2 Content ABG Base Excess ABG Hemoglobin ABG Carboxyhemoglobin POC ABG HHb (Measured) ABG Methemoglobin ABG O2 Capacity Emmanuel Test A-a O2 Difference Hgb O2 Saturation Vent Mode FiO2 Pressure Support CPAP Sodium Potassium Chloride Carbon Dioxide Anion Gap BUN Creatinine Est GFR ( Amer) Est GFR (Non-Af Amer) POC Glucose (mg/dL) 108 Random Glucose Calcium Total Bilirubin AST ALT Alkaline Phosphatase Total Protein Albumin Globulin Albumin/Globulin Ratio Fingerstick Blood Sugar Results: 109 Review of Systems - Review of Systems Systems not reviewed;Unavailable: Altered Mental Status Critical Care Progress Note - Ventilator Checklist Head of Bed 30 Degrees: Yes Daily Sedation Vacation: Yes Daily Assessment of Readiness to Wean: Yes Daily Spontaneous Breathing Trial: Yes PUD Prophalyxis: Yes DVT Prophylaxis: Yes - Nutrition Nutrition: Nutrition Category Date Time Status NPO Diet [DIET] Diets 12/09/16 Breakfast Active Assessment/Plan (1) Anoxic brain injury Assessment and plan: 71 yo M. PMHx Fever, Productive Cough and well known to have a h/o A fib, BPH, COPD, CHF, CAD, DM type 2, HTN, and previous code blue in the past. Continue current level of care, with PEG tube feeds, when necessary bronchodilators, pulmonary toileting. Patient supposed to receive trach placement today. Patient can then be discharged to long-term care facility. Patient's overall prognosis is extremely poor. Critical care time spent 35 minutes. Current Visit: Yes Status: Acute Priority: High Comment: Poor prognosis Pall Care consult
[2016-12-09] MEDS ORDERED: Midazolam 2 MG/2 ML VIAL ONE (12:20)
[2016-12-09] MEDS ORDERED: Rocuronium 10 mg/ml (5 ml) ONE (12:21)
[2016-12-09] MEDS ORDERED: Etomidate 20 mg/10ml Inj IV ONE (12:21)
[2016-12-09] MEDS ORDERED: ePHEDrine 50 mg/ml Inj ONE (12:25)
[2016-12-09] MEDS ORDERED: Lactated Ringer's 1,000 ML IV ONE (13:12)
[2016-12-09] MEDS ORDERED: Lidocaine/Epi 1% 1:100000 20 ML IJ ONE (13:42)
--- NOTE | 2016-12-09 14:11 | PCM.SURG1 ---
<Dorinda Plummer - Last Filed: 12/09/16 14:10> Surgeon's Initial Post Op Note - Surgeon's Notes Surgeon: Dr. Snell Epitaxial Reactor Operator: Dr. Woodrow Noble Type of Anesthesia: General Endo Anesthesia Administered By: Kane Pre-Operative Diagnosis: Respiratory failure Operative Findings: same Post-Operative Diagnosis: same Operation Performed: Percutaneous Tracheostomy, Flexible Bronchoscopy Specimen/Specimens Removed: none Estimated Blood Loss: EBL {In ML}: 5 Blood Products Given: N/A Drains Used: No Drains Post-Op Condition: Good Date of Surgery/Procedure: 12/09/16 Time of Surgery/Procedure: 14:11 <Darius Snell - Last Filed: 12/09/16 14:24> Surgeon's Initial Post Op Note - Surgeon's Notes Epitaxial Reactor Operator: Dr Pura Reyez Post-Op Condition: Fair
--- NOTE | 2016-12-09 14:43 | OP ---
PROCEDURE DATE: 12/09/2016 SURGEON: Dr. Snell. ASSISTANTS: Dr. Plummer and Dr. Neves. PREOPERATIVE DIAGNOSIS: Respiratory failure. POSTOPERATIVE DIAGNOSIS: Respiratory failure. PROCEDURE: Percutaneous tracheostomy with a flexible bronchoscopy. ANESTHESIA: General, Dr. Middleton. DESCRIPTION OF OPERATION: The patient was placed supine on the hospital bed with a thyroid pillow be neath the upper back and the head extended as far as could be tolerated. The neck was prepped and dr aped in the usual sterile manner. The midline of the neck below the thyroid cartilage and extending down towards the sternal notch was infiltrated with 1% lidocaine with epinephrine and a small midline incision was made along the lower neck. The first thyroid ring was palpated and soft tissue was div ided using cautery to allow freer access to the trachea. A tracheal hook was used to elevate the cri coid cartilage to allow easier access to the tracheal rings and under direct observation with a flexi ble bronchoscope via the ET tube, the needle was placed into the trachea between the second and third tracheal ring. A guidewire was passed and noted to pass easily downward into the trachea. The need le was removed. The percutaneous tracheostomy dilator was passed over the wire and the plastic guide was left in place. The larger dilator was then passed over the guide to allow full enlargement of t he stoma. A #8 Shiley tube was then passed over the guidewire and positioned at the skin level. Aga in, this was observed under bronchoscopic inspection and noted to pass fully into the trachea. The t racheostomy tube was attached to the ventilator and excellent end-tidal volume was noted. The cuff w as inflated. The tracheostomy tube was sutured to the skin with 4 sutures of 0 silk. A tracheostomy collar was also positioned. The patient tolerated the procedure well and transferred back to the [facility] in stable condition. Estimated blood loss for the procedure was 5 mL. Darius Snell MD cc: [phone] TT: 12/09/2016 14:42:10 brandon
--- NOTE | 2016-12-09 14:50 | RAD ---
HISTORY: Intubated COMPARISON: Comparison chest 12/08/2016. FINDINGS: LUNGS: In situ ETT, tip of which lies approximately 6.87 cm above jung. Right IJ central venous line within the tip of which lies in the SVC unchanged. Persistent mild diffuse bilateral pulmonary vascular congestive changes a have improved from prior study. Persistent bilateral effusions right greater than left which may have also diminished slightly. . PLEURA: No significant pleural effusion identified, no pneumothorax apparent. CARDIOVASCULAR: Normal. OSSEOUS STRUCTURES: No significant abnormalities. VISUALIZED UPPER ABDOMEN: Normal. OTHER FINDINGS: None. IMPRESSION: Support lines and tubes as above. Persistent mild diffuse bilateral pulmonary vascular congestive changes a have improved from prior study. Persistent bilateral effusions right greater than left which may have also diminished slightly. .
--- NOTE | 2016-12-09 15:12 | PN ---
DATE: 12/09/2016 ENDO FOLLOWUP NOTE ICU, room 432. SUBJECTIVE: This is a 71-year-old male with recent acute respiratory failure who remains unresponsiv e and endotracheally intubated, and is now being followed closely for metabolic management. His glyc emic levels are near optimal at this time as noted. LABORATORY DATA: The latest glucose levels have ranged from 94-108 and 139 mg/dL. His latest chemistry showed a BUN of 54, sodium 139, potassium 3.6, chloride 110, CO2 of 23, glucose 94, and creatinine 1.5. So, at this time, we will continue the same medical management as given, and obtain serial chemistrie s and supplement accordingly as needed. We will follow. Anabella Sbeastian MD cc: [id number] TT: 12/09/2016 15:12:06 Confirmation # [id number] Dictation # [id number] valentina
--- NOTE | 2016-12-09 16:37 | CP.PCM.PN ---
Subjective - Date & Time of Evaluation Date of Evaluation: 12/09/16 Time of Evaluation: 10:00 - Subjective Subjective: Mr. Bellamy was seen and examined today at bedside in the ICU. He was found in NAD. According to nursing, the patient had a positive response last night after receiving methylphenidate and amantadine, with more spontaneous eye opening. Today, he has not received his doses since he has been NPO for the tracheostomy. There were no reported acute events overnight. Objective - Vital Signs/Intake and Output Vital Signs (last 24 hours): Temp Pulse Resp BP Pulse Ox 97.9 F 82 16 157/98 H 100 12/09/16 12:15 12/09/16 14:00 12/09/16 14:00 12/09/16 14:00 12/09/16 14:00 Intake and Output: 12/09/16 12/09/16 06:59 18:59 Intake Total 570 460 Output Total 500 530 Balance 70 -70 - Medications Medications: Current Medications Albuterol Sulfate (Albuterol 0.083% Inhal Mary (2.5 Mg/3 Ml) Ud) 2.5 mg INH RQ4 PRN PRN Reason: Shortness of Breath Last Admin: 11/23/16 03:48 Dose: 2.5 mg Albuterol/Ipratropium (Duoneb 3 Mg/0.5 Mg (3 Ml) Ud) 3 ml INH RQ6 [facility] Last Admin: 12/09/16 08:54 Dose: 3 ml Amantadine HCl (Amantadine 100 Mg Cap) 100 mg PO BID [facility] Last Admin: 12/09/16 09:13 Dose: 100 mg Metronidazole (Flagyl 500mg/100ml Ns) 100 mls @ 100 mls/hr IVPB Q8 [facility] Last Admin: 12/09/16 08:33 Dose: 100 mls/hr Methylphenidate HCl (Ritalin) 10 mg PO DAILY [facility] Last Admin: 12/09/16 09:13 Dose: 10 mg Metoprolol Tartrate (Lopressor) 25 mg PO Q12 [facility] Last Admin: 12/09/16 08:35 Dose: 25 mg Ondansetron HCl (Zofran Odt) 4 mg PEG Q8 [facility] Last Admin: 11/24/16 16:40 Dose: 4 mg Vancomycin HCl (Vancocin (Oral/Rectal Use)) 125 mg PO Q8 [facility] Last Admin: 12/09/16 08:39 Dose: 125 mg - Labs Labs: 12/09/16 04:20 12/09/16 04:20 PT 14.9 SECONDS (9.6-11.2) H 12/08/16 04:20 INR 1.43 (0.92-1.08) H 12/08/16 04:20 APTT 33.9 SECONDS (23.3-32.5) H D 11/24/16 06:00 - Neurological Exam Neurological Exam: Altered, CN II-XII Intact Neuro motor strength exam: Left Upper Extremity: 2/1, Right Upper Extremity: 2/1 , Left Lower Extremity: 2/1, Right Lower Extremity: 2/1 Additional comments: Neurologically unchanged compared with yesterday's examination. Assessment and Plan (1) Anoxic brain injury Assessment & Plan: Will continue the stimulant challenge to evaluate for any improvement once the patient has more therapeutic doses. An EEG will be repeated after 2-3 days to evaluate for changes in activity. Status: Acute
--- NOTE | 2016-12-09 20:30 | CP.PCM.PN ---
Subjective - Date & Time of Evaluation Date of Evaluation: 12/09/16 Time of Evaluation: 22:22 - Subjective Subjective: Above noted Objective - Vital Signs/Intake and Output Vital Signs (last 24 hours): Temp Pulse Resp BP Pulse Ox 98.5 F 85 22 156/93 H 100 12/09/16 16:00 12/09/16 18:00 12/09/16 18:00 12/09/16 18:00 12/09/16 18:00 Intake and Output: 12/09/16 12/10/16 18:59 06:59 Intake Total 890 Output Total 830 Balance 60 - Medications Medications: Current Medications Albuterol Sulfate (Albuterol 0.083% Inhal Mary (2.5 Mg/3 Ml) Ud) 2.5 mg INH RQ4 PRN PRN Reason: Shortness of Breath Last Admin: 11/23/16 03:48 Dose: 2.5 mg Albuterol/Ipratropium (Duoneb 3 Mg/0.5 Mg (3 Ml) Ud) 3 ml INH RQ6 [facility] Last Admin: 12/09/16 19:59 Dose: 3 ml Amantadine HCl (Amantadine 100 Mg Cap) 100 mg PO BID [facility] Last Admin: 12/09/16 17:34 Dose: 100 mg Metronidazole (Flagyl 500mg/100ml Ns) 100 mls @ 100 mls/hr IVPB Q8 [facility] Last Admin: 12/09/16 17:34 Dose: 100 mls/hr Methylphenidate HCl (Ritalin) 10 mg PO DAILY [facility] Last Admin: 12/09/16 17:36 Dose: 10 mg Metoprolol Tartrate (Lopressor) 25 mg PO Q12 [facility] Last Admin: 12/09/16 08:35 Dose: 25 mg Ondansetron HCl (Zofran Odt) 4 mg PEG Q8 [facility] Last Admin: 11/24/16 16:40 Dose: 4 mg Vancomycin HCl (Vancocin (Oral/Rectal Use)) 125 mg PO Q8 [facility] Last Admin: 12/09/16 17:33 Dose: 125 mg - Labs Labs: 12/09/16 04:20 12/09/16 04:20 PT 14.9 SECONDS (9.6-11.2) H 12/08/16 04:20 INR 1.43 (0.92-1.08) H 12/08/16 04:20 APTT 33.9 SECONDS (23.3-32.5) H D 11/24/16 06:00 - Respiratory Exam Respiratory Exam: NORMAL BREATHING PATTERN - Cardiovascular Exam Cardiovascular Exam: REGULAR RHYTHM - GI/Abdominal Exam GI & Abdominal Exam: Normal Bowel Sounds Assessment and Plan - Assessment and Plan (Free Text) Assessment: S/P Acute Respiratory Failure Asystole Intubated Tracheostomy?? Aspiration?? HX COPD Klebsiella Pneumonia MDR ABX IVF Steroids Pulmonary ID Anoxic encephalopathy 2 to above Methyphenidate and amantidine Neuro note appreciated S/P Asystole 2 to Pulmonary dx (S/P V-fib/ V-tach 2 to pulmonary dx) A-fib CAD S/P CABG Amiodorone Cardiology SMITA/ CKD 2 to Sepsis acute ischemia ATN Improving Nephrology Anemia etiol? Chronic dx CKD + guaic Transfusion HX Hyperkalemia and hypokalemia etiol ?? Adrenal insufficiency?? Hx of Orthostatic Hypotension at SC ACTH Cortisol level ?? Florinef d/c Endocronology Swallowing?? aspiration?? PEG Jevity and oral feedings Hx s/p + C-diff + Ag -toxin Hx Dec oral intake improved on Megace Sick Euthyroid syndrome Endo Chronic chest wall pain Pain meds
[2016-12-10] MEDS: metroNIDAZOLE 500mg/100ml NS 100 ML IVPB SCH ×3 (01:00→17:36)
[2016-12-10] MEDS: Vancomycin 500 mg (Oral/Rectal USE) PO SCH ×3 (01:00→17:33)
[2016-12-10] MEDS: Albuterol-Ipratrop 3 mg / 0.5 (3 ml) UD INH SCH ×4 (01:02→20:17)
[2016-12-10 05:26] LABS: MEAN CELL VOLUME 89.7 fl (80.0-94.0); MEAN CORPUSCULAR HEMOGLOBIN 28.4 pg (27.0-31.0); MEAN CORPUSCULAR HGB CONC 31.7 g/dL (33.0-37.0); RED CELL DISTRIBUTION WIDTH 16.3 % (11.5-14.5); WHITE BLOOD COUNT 9.5 K/uL (4.8-10.8)
[2016-12-10 05:30] LABS: ALB/GLOB RATIO 0.9 (1.0-2.1); ALKALINE PHOSPHATASE 109 U/L (38-126); ALT/SGPT 40 U/L (21-72); AST/SGOT 31 U/L (17-59); BILIRUBIN,TOTAL 0.5 mg/dl (0.2-1.3); BLOOD UREA NITROGEN 45 mg/dl (9-20); CALCIUM 7.9 mg/dL (8.4-10.2); CARBON DIOXIDE 22 mmol/L (22-30); CHLORIDE 110 mmol/L (98-107); GFR AFRICAN-AMERICAN > 60; GLUCOSE,RANDOM 114 mg/dL (75-110); POTASSIUM 3.4 MMOL/L (3.6-5.0); SODIUM 140 mmol/l (132-148); TOTAL PROTEIN 4.6 G/DL (6.3-8.2)
[2016-12-10 05:47] LABS: ABG ALLEN TEST YES; ABG MECHANICAL RATE 16; ARTERIAL BLOOD GAS O2 CAPACITY 13.6 mL/dL (16-24); ARTERIAL BLOOD GAS O2 CONTENT 13.6 ML/dL (15-23); ARTERIAL BLOOD GAS PH 7.47 (7.35-7.45); ARTERIAL BLOOD GAS PO2 151 mm/Hg (80-100); ARTERIAL BLOOD HGB O2 SAT 97.5 % (95.0-98.0); ATERIAL BLOOD GAS PEEP 5; CARBOXYHEMOGLOBIN 1.4 % (0.5-1.5); HHB -0.2 % (0.0-5.0); METHEMOGLOBIN 1.3 % (0.0-3.0)
--- NOTE | 2016-12-10 07:47 | CP.PCM.PN ---
Subjective - Date & Time of Evaluation Date of Evaluation: 12/10/16 Time of Evaluation: 07:45 - Subjective Subjective: General Surgery - Dr. Snell Pt S&E. NAEO. Pt with Trach, on PRVC w/ 40% FIO2. Pt remains unresponsive. Objective - Vital Signs/Intake and Output Vital Signs (last 24 hours): Temp Pulse Resp BP Pulse Ox 98.2 F 86 21 157/96 H 100 12/10/16 07:38 12/10/16 07:38 12/10/16 07:38 12/10/16 07:38 12/10/16 07:38 Intake and Output: 12/10/16 12/10/16 06:59 18:59 Intake Total 940 Output Total 500 Balance 440 - Medications Medications: Current Medications Albuterol Sulfate (Albuterol 0.083% Inhal Mary (2.5 Mg/3 Ml) Ud) 2.5 mg INH RQ4 PRN PRN Reason: Shortness of Breath Last Admin: 11/23/16 03:48 Dose: 2.5 mg Albuterol/Ipratropium (Duoneb 3 Mg/0.5 Mg (3 Ml) Ud) 3 ml INH RQ6 [facility] Last Admin: 12/10/16 01:02 Dose: 3 ml Amantadine HCl (Amantadine 100 Mg Cap) 100 mg PO BID [facility] Last Admin: 12/09/16 17:34 Dose: 100 mg Metronidazole (Flagyl 500mg/100ml Ns) 100 mls @ 100 mls/hr IVPB Q8 [facility] Last Admin: 12/10/16 01:00 Dose: 100 mls/hr Methylphenidate HCl (Ritalin) 10 mg PO DAILY [facility] Last Admin: 12/09/16 17:36 Dose: 10 mg Metoprolol Tartrate (Lopressor) 25 mg PO Q12 [facility] Last Admin: 12/09/16 21:24 Dose: 25 mg Ondansetron HCl (Zofran Odt) 4 mg PEG Q8 [facility] Last Admin: 11/24/16 16:40 Dose: 4 mg Vancomycin HCl (Vancocin (Oral/Rectal Use)) 125 mg PO Q8 [facility] Last Admin: 12/10/16 01:00 Dose: 125 mg - Labs Labs: 12/10/16 04:30 12/10/16 04:30 PT 14.9 SECONDS (9.6-11.2) H 12/08/16 04:20 INR 1.43 (0.92-1.08) H 12/08/16 04:20 APTT 33.9 SECONDS (23.3-32.5) H D 11/24/16 06:00 - Constitutional Appears: No Acute Distress - Head Exam Head Exam: ATRAUMATIC, NORMAL INSPECTION, NORMOCEPHALIC - Respiratory Exam Respiratory Exam: absent: Respiratory Distress - Neurological Exam Neurological Exam: absent: Alert, Awake - Skin Skin Exam: Dry, Intact Assessment and Plan - Assessment and Plan (Free Text) Assessment: 71 yo M s/p Perc. Tracheostomy, POD #1 -Trach functioning well, gauze replaced -Suture removal in 10days -Continue care as per ICU teams DW Dr. Channing Plummer PGY2
--- NOTE | 2016-12-10 09:38 | CP.PCM.PN ---
Subjective - Date & Time of Evaluation Date of Evaluation: 12/10/16 Time of Evaluation: 09:35 - Subjective Subjective: Interim events noted. Had tracheostomy done yesterday afternoon. Vital signs have remained unchanged, afebrile, mildly hypertensive. CXR showing hazy densities in both lung bases suggesting pleural effusions. Labs reviewed. Renal function has continued to improve. Neurologically appears unchanged, started on amantadine and methylphenidate. Suctioned a moderate amount of mucoid secretions this morning. Tracheostomy intact. No dullness on chest percussion anteriorly. No subcutaneous emphysema. Coarse rhonchi heard in dependant zones of both lungs (R>L). No audible wheezes or bronchial breath sounds. No cyanosis. Trace dependant edema +. EtCO2 monitor showing 26 mmHg. Changed over to CPAP/PS ventilation. Continue present medical regimen. One dose furosemide 20MG IV this morning. Continue aerosol therapy with DuoNeb. Objective - Vital Signs/Intake and Output Vital Signs (last 24 hours): Temp Pulse Resp BP Pulse Ox 98.2 F 86 21 163/100 H 100 12/10/16 07:38 12/10/16 08:01 12/10/16 07:38 12/10/16 08:01 12/10/16 07:38 Intake and Output: 12/09/16 12/10/16 23:59 11:59 Intake Total 1010 660 Output Total 530 500 Balance 480 160 - Medications Medications: Current Medications Albuterol Sulfate (Albuterol 0.083% Inhal Mary (2.5 Mg/3 Ml) Ud) 2.5 mg INH RQ4 PRN PRN Reason: Shortness of Breath Last Admin: 11/23/16 03:48 Dose: 2.5 mg Albuterol/Ipratropium (Duoneb 3 Mg/0.5 Mg (3 Ml) Ud) 3 ml INH RQ6 [facility] Last Admin: 12/10/16 08:44 Dose: 3 ml Amantadine HCl (Amantadine 100 Mg Cap) 100 mg PO BID [facility] Last Admin: 12/10/16 08:04 Dose: 100 mg Metronidazole (Flagyl 500mg/100ml Ns) 100 mls @ 100 mls/hr IVPB Q8 [facility] Last Admin: 12/10/16 08:04 Dose: 100 mls/hr Methylphenidate HCl (Ritalin) 10 mg PO DAILY [facility] Last Admin: 12/09/16 17:36 Dose: 10 mg Metoprolol Tartrate (Lopressor) 25 mg PO Q12 [facility] Last Admin: 12/10/16 08:01 Dose: 25 mg Ondansetron HCl (Zofran Odt) 4 mg PEG Q8 [facility] Last Admin: 11/24/16 16:40 Dose: 4 mg Vancomycin HCl (Vancocin (Oral/Rectal Use)) 125 mg PO Q8 [facility] Last Admin: 12/10/16 08:07 Dose: 125 mg - Labs Labs: 12/10/16 04:30 12/10/16 04:30 PT 14.9 SECONDS (9.6-11.2) H 12/08/16 04:20 INR 1.43 (0.92-1.08) H 12/08/16 04:20 APTT 33.9 SECONDS (23.3-32.5) H D 11/24/16 06:00 Assessment and Plan (1) Respiratory failure with hypercapnia Status: Resolved (2) Endotracheally intubated Status: Resolved (3) On mechanically assisted ventilation Status: Acute (4) Pneumonia Status: Resolved (5) COPD exacerbation Status: Resolved
--- NOTE | 2016-12-10 10:11 | CP.PCM.PN ---
Subjective - Date & Time of Evaluation Date of Evaluation: 12/10/16 Time of Evaluation: 10:09 - Subjective Subjective: No changes clinically patient has tracheostomy from yesterday on ventilator and tolerating okay Vital sign noted to be acceptable and afebrile Chest showed few rhonchi Heart no rubs Abdomen soft Extremity no edema Lab reviewed and serum creatinine improving was mild hypokalemia Recovering from acute kidney injury Mild hypokalemia to be given some potassium chloride supplement Follow-up with the pulmonary and the primary team and intensive care unit Objective - Vital Signs/Intake and Output Vital Signs (last 24 hours): Temp Pulse Resp BP Pulse Ox 98.2 F 78 25 H 160/88 H 100 12/10/16 07:38 12/10/16 09:00 12/10/16 09:00 12/10/16 09:00 12/10/16 09:00 Intake and Output: 12/10/16 12/10/16 06:59 18:59 Intake Total 940 380 Output Total 500 300 Balance 440 80 - Medications Medications: Current Medications Albuterol Sulfate (Albuterol 0.083% Inhal Mary (2.5 Mg/3 Ml) Ud) 2.5 mg INH RQ4 PRN PRN Reason: Shortness of Breath Last Admin: 11/23/16 03:48 Dose: 2.5 mg Albuterol/Ipratropium (Duoneb 3 Mg/0.5 Mg (3 Ml) Ud) 3 ml INH RQ6 [facility] Last Admin: 12/10/16 08:44 Dose: 3 ml Amantadine HCl (Amantadine 100 Mg Cap) 100 mg PO BID [facility] Last Admin: 12/10/16 08:04 Dose: 100 mg Metronidazole (Flagyl 500mg/100ml Ns) 100 mls @ 100 mls/hr IVPB Q8 [facility] Last Admin: 12/10/16 08:04 Dose: 100 mls/hr Methylphenidate HCl (Ritalin) 10 mg PO DAILY [facility] Last Admin: 12/09/16 17:36 Dose: 10 mg Metoprolol Tartrate (Lopressor) 25 mg PO Q12 [facility] Last Admin: 12/10/16 08:01 Dose: 25 mg Ondansetron HCl (Zofran Odt) 4 mg PEG Q8 [facility] Last Admin: 11/24/16 16:40 Dose: 4 mg Vancomycin HCl (Vancocin (Oral/Rectal Use)) 125 mg PO Q8 [facility] Last Admin: 12/10/16 08:07 Dose: 125 mg - Labs Labs: 12/10/16 04:30 12/10/16 04:30 PT 14.9 SECONDS (9.6-11.2) H 12/08/16 04:20 INR 1.43 (0.92-1.08) H 12/08/16 04:20 APTT 33.9 SECONDS (23.3-32.5) H D 11/24/16 06:00
--- NOTE | 2016-12-10 10:46 | CP.PCM.PN ---
Subjective - Date & Time of Evaluation Date of Evaluation: 12/10/16 Time of Evaluation: 10:00 - Subjective Subjective: UNRESPONSIVE Objective - Vital Signs/Intake and Output Vital Signs (last 24 hours): Temp Pulse Resp BP Pulse Ox 98.2 F 78 25 H 160/88 H 100 12/10/16 07:38 12/10/16 09:00 12/10/16 09:00 12/10/16 09:00 12/10/16 09:00 Intake and Output: 12/10/16 12/10/16 06:59 18:59 Intake Total 940 380 Output Total 500 300 Balance 440 80 - Medications Medications: Current Medications Albuterol Sulfate (Albuterol 0.083% Inhal Mary (2.5 Mg/3 Ml) Ud) 2.5 mg INH RQ4 PRN PRN Reason: Shortness of Breath Last Admin: 11/23/16 03:48 Dose: 2.5 mg Albuterol/Ipratropium (Duoneb 3 Mg/0.5 Mg (3 Ml) Ud) 3 ml INH RQ6 [facility] Last Admin: 12/10/16 08:44 Dose: 3 ml Amantadine HCl (Amantadine 100 Mg Cap) 100 mg PO BID [facility] Last Admin: 12/10/16 08:04 Dose: 100 mg Collagenase (Santyl) 1 applic TOP DAILY [facility] Dimethicone (Proshield Plus Skin Protectant) 1 applic TOP BID [facility] Metronidazole (Flagyl 500mg/100ml Ns) 100 mls @ 100 mls/hr IVPB Q8 [facility] Last Admin: 12/10/16 08:04 Dose: 100 mls/hr Methylphenidate HCl (Ritalin) 10 mg PO DAILY [facility] Last Admin: 12/09/16 17:36 Dose: 10 mg Metoprolol Tartrate (Lopressor) 25 mg PO Q12 [facility] Last Admin: 12/10/16 08:01 Dose: 25 mg Ondansetron HCl (Zofran Odt) 4 mg PEG Q8 [facility] Last Admin: 11/24/16 16:40 Dose: 4 mg Silver Sulfadiazine (Silvadene 1% 20 Gm) 0 ea TOP BID [facility] Vancomycin HCl (Vancocin (Oral/Rectal Use)) 125 mg PO Q8 [facility] Last Admin: 12/10/16 08:07 Dose: 125 mg - Labs Labs: 12/10/16 04:30 12/10/16 04:30 PT 14.9 SECONDS (9.6-11.2) H 12/08/16 04:20 INR 1.43 (0.92-1.08) H 12/08/16 04:20 APTT 33.9 SECONDS (23.3-32.5) H D 11/24/16 06:00 - Respiratory Exam Respiratory Exam: Rhonchi - Cardiovascular Exam Cardiovascular Exam: Irregular Rhythm, +S1, +S2 - Additional Findings 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
[2016-12-10] MEDS ORDERED: Potassium Chloride 20 mEq/15 ml LIQ UD PEG ONE (10:54)
--- NOTE | 2016-12-10 12:04 | RAD ---
PROCEDURE: CHEST RADIOGRAPH, 1 VIEW HISTORY: s/p tracheostomy COMPARISON: Comparison made with prior chest radiograph 12/09/2016. FINDINGS: LUNGS: Interval removal ETT and placement of tracheostomy tube. In situ right IJ central venous line with tip in the SVC unchanged. Mild pulmonary venous congestive with bilateral lower lobe alveolar-type infiltrates and bilateral effusions. PLEURA: No pneumothorax or pleural fluid seen. CARDIOVASCULAR: Sternotomy wires again noted. Heart size remains unchanged. Ectatic uncoiled aorta. OSSEOUS STRUCTURES: No significant abnormalities. VISUALIZED UPPER ABDOMEN: Normal. OTHER FINDINGS: None. IMPRESSION: Interval removal ETT and placement of tracheostomy tube. In situ right IJ central venous line with tip in the SVC unchanged. Mild pulmonary venous congestive with bilateral lower lobe alveolar-type infiltrates and bilateral effusions.
--- NOTE | 2016-12-10 13:38 | CP.CCUPN ---
CCU Subjective - Physician Review Subjective (Free Text): FLOUR MIXER PROGRESS NOTE Patient examined, interim events reviewed: Remains comatose, s/p Trach 1 day ago, placed back to CPAP PS as per Pulm with good tolerance. BP trends show systolic and diastolic elevations, especially now while on methylphenidate. No recurrent Fever spikes, BP 150s/80s, HR 85 in A Fib. No IVFs started, but tube feed water flushes are 200ml Q4h. 24H I/Os = 1830/1330ml. No gross seizure activity reported. Descriptions noted regarding increase in spontaneous movements, but none observed this AM. ROS: All pertinent Nursing notes and all other 10+ systems reviewed: otherwise non-obtainable and as above. PMSFH: No other new pertinent information relative to current medical problems noted. No other distress noted: EXAM- HEENT: no icterus, pupils midline, equal and reactive, no nystagmus, occasional mild chewing activity noted. NECK: no visible JVD, supple, carotids equal upstroke bilat/no bruits CHEST: decreased BS bases, no wheezes audible. HEART: regular, distant, S1S2, no murmur audible, no rubs. ABD: soft, flat, PEG intact, no increased distention, no focal tenderness, no HSM. BS hypoactive. EXT: trace LE edema, no peripheral/ digital cyanosis, no calf tenderness or palpable cords, distal pulses intact and symmetrical NEURO: flaccid x 4, no purposeful motor activity. SKIN: no rashes LABS: 7.47/32/151 WBC= 9.5 HGB= 9.5 PLTs = 158K Na= 140 K= 3.4 HCO3= 22 BUN/Cr= 45/1.4 VR=588 CXR: Trach tube position Ok within tracheal air column, bi-basilar haziness persists. (my interp). Assessment: 1. Wes-Asystole Code 2 Retained secretions /Cardiomyopathy 2. Acute Resp Insuff, r/o 2 Chronic Aspiration events due to PO meals with PEG feeds. 3. Coma 2 Anoxic Encephalopathy 4. Acute Anemia 2 non-Blood loss and Chronic Disease state. 5. Acute on Chronic Kidney Disease III, r/o ATN from recent Code Blue. PLAN: 1. Methylphenidate / Amantadine as per Neuro. 2. Needs PICC line, unless satisfactory peripheral IV line can be obtained soon. 3. HGb stable post PRBCS that were given on 12/05/16. 4. Consider long-term placement.
[2016-12-10] MEDS: Silver Sulfadiazine 1% Cream (20 gm) TOP SCH (17:34)
[2016-12-10] MEDS: Proshield Plus GEL TOP SCH (17:35)
--- NOTE | 2016-12-10 17:39 | CP.PCM.PN ---
Subjective - Date & Time of Evaluation Date of Evaluation: 12/10/16 Time of Evaluation: 07:00 - Subjective Subjective: coma s/p trach Objective - Vital Signs/Intake and Output Vital Signs (last 24 hours): Temp Pulse Resp BP Pulse Ox 98.5 F 85 30 H 151/87 H 100 12/10/16 11:46 12/10/16 11:46 12/10/16 11:46 12/10/16 12:21 12/10/16 11:46 Intake and Output: 12/10/16 12/10/16 06:59 18:59 Intake Total 940 380 Output Total 500 300 Balance 440 80 - Medications Medications: Current Medications Albuterol Sulfate (Albuterol 0.083% Inhal Mary (2.5 Mg/3 Ml) Ud) 2.5 mg INH RQ4 PRN PRN Reason: Shortness of Breath Last Admin: 11/23/16 03:48 Dose: 2.5 mg Albuterol/Ipratropium (Duoneb 3 Mg/0.5 Mg (3 Ml) Ud) 3 ml INH RQ6 [facility] Last Admin: 12/10/16 14:39 Dose: 3 ml Amantadine HCl (Amantadine 100 Mg Cap) 100 mg PO BID [facility] Last Admin: 12/10/16 17:33 Dose: 100 mg Amiodarone HCl (Cordarone) 200 mg PO DAILY [facility] Last Admin: 12/10/16 11:46 Dose: 200 mg Collagenase (Santyl) 1 applic TOP DAILY [facility] Dimethicone (Proshield Plus Skin Protectant) 1 applic TOP BID [facility] Last Admin: 12/10/16 17:35 Dose: 1 applic Metronidazole (Flagyl 500mg/100ml Ns) 100 mls @ 100 mls/hr IVPB Q8 [facility] Last Admin: 12/10/16 17:36 Dose: 100 mls/hr Methylphenidate HCl (Ritalin) 10 mg PO DAILY [facility] Last Admin: 12/10/16 11:45 Dose: 10 mg Metoprolol Tartrate (Lopressor) 25 mg PO Q12 [facility] Last Admin: 12/10/16 08:01 Dose: 25 mg Ondansetron HCl (Zofran Odt) 4 mg PEG Q8 [facility] Last Admin: 11/24/16 16:40 Dose: 4 mg Silver Sulfadiazine (Silvadene 1% 20 Gm) 0 ea TOP BID [facility] Last Admin: 12/10/16 17:34 Dose: 2 applic Vancomycin HCl (Vancocin (Oral/Rectal Use)) 125 mg PO Q8 [facility] Last Admin: 12/10/16 17:33 Dose: 125 mg - Labs Labs: 12/10/16 04:30 12/10/16 04:30 PT 14.9 SECONDS (9.6-11.2) H 12/08/16 04:20 INR 1.43 (0.92-1.08) H 12/08/16 04:20 APTT 33.9 SECONDS (23.3-32.5) H D 11/24/16 06:00 - Constitutional Appears: Cachectic, Chronically Ill - Head Exam Head Exam: NORMOCEPHALIC - Eye Exam Eye Exam: absent: Scleral icterus - ENT Exam ENT Exam: Mucous Membranes Dry - Neck Exam Neck Exam: absent: Lymphadenopathy - Respiratory Exam Respiratory Exam: Decreased Breath Sounds, Rhonchi - Cardiovascular Exam Cardiovascular Exam: REGULAR RHYTHM, +S1, +S2 - Rectal Exam Rectal Exam: Deferred - Exam Exam: NORMAL INSPECTION - Extremities Exam Extremities Exam: absent: Pedal Edema - Back Exam Back Exam: absent: CVA tenderness (L), CVA tenderness (R) - Neurological Exam Neurological Exam: Altered Assessment and Plan (1) COPD (chronic obstructive pulmonary disease) with acute bronchitis Status: Acute (2) Atrial fibrillation Status: Acute (3) CHF (congestive heart failure) Status: Acute (4) Dehydration Status: Acute (5) Moderate COPD (chronic obstructive pulmonary disease) Status: Acute (6) PAD (peripheral artery disease) Status: Acute (7) Pneumonia Status: Resolved (8) COPD (chronic obstructive pulmonary disease) Status: Chronic (9) COPD exacerbation Status: Resolved
--- NOTE | 2016-12-10 18:54 | PN ---
DATE: 12/10/2016 ICU ROOM: 432 SUBJECTIVE: This is a 71-year-old female with recent acute respiratory failure, currently endotrache ally intubated and unresponsive and is now being followed closely for metabolic management. He recei jj initial IV steroid therapy and has since then been taken off steroids as noted. His glycemic lev els are fluctuating, but much improved at this time and the glucose values have ranged from 119-167 m g/dL. His latest chemistries include a BUN of 45, sodium 140, potassium 3.4, chloride 110, CO2 of 22 , glucose 114, and creatinine 1.4. So, at this time, we will continue the same medical management as ordered and obtain serial chemistries and supplement accordingly as needed. We will follow. Anabella Sebastian MD cc: [id number] TT: 12/10/2016 18:53:09 Confirmation # [id number] Dictation # [id number] [place]
--- NOTE | 2016-12-10 19:45 | CP.PCM.PN ---
Subjective - Date & Time of Evaluation Date of Evaluation: 12/10/16 Time of Evaluation: 22:22 - Subjective Subjective: Above noted Objective - Vital Signs/Intake and Output Vital Signs (last 24 hours): Temp Pulse Resp BP Pulse Ox 99.5 F 87 26 H 150/82 100 12/10/16 15:00 12/10/16 17:00 12/10/16 17:00 12/10/16 17:00 12/10/16 17:00 Intake and Output: 12/10/16 12/11/16 18:59 06:59 Intake Total 670 Output Total 300 Balance 370 - Medications Medications: Current Medications Albuterol Sulfate (Albuterol 0.083% Inhal Mary (2.5 Mg/3 Ml) Ud) 2.5 mg INH RQ4 PRN PRN Reason: Shortness of Breath Last Admin: 11/23/16 03:48 Dose: 2.5 mg Albuterol/Ipratropium (Duoneb 3 Mg/0.5 Mg (3 Ml) Ud) 3 ml INH RQ6 [facility] Last Admin: 12/10/16 14:39 Dose: 3 ml Amantadine HCl (Amantadine 100 Mg Cap) 100 mg PO BID [facility] Last Admin: 12/10/16 17:33 Dose: 100 mg Amiodarone HCl (Cordarone) 200 mg PO DAILY [facility] Last Admin: 12/10/16 11:46 Dose: 200 mg Collagenase (Santyl) 1 applic TOP DAILY [facility] Dimethicone (Proshield Plus Skin Protectant) 1 applic TOP BID [facility] Last Admin: 12/10/16 17:35 Dose: 1 applic Metronidazole (Flagyl 500mg/100ml Ns) 100 mls @ 100 mls/hr IVPB Q8 [facility] Last Admin: 12/10/16 17:36 Dose: 100 mls/hr Methylphenidate HCl (Ritalin) 10 mg PO DAILY [facility] Last Admin: 12/10/16 11:45 Dose: 10 mg Metoprolol Tartrate (Lopressor) 25 mg PO Q12 [facility] Last Admin: 12/10/16 08:01 Dose: 25 mg Ondansetron HCl (Zofran Odt) 4 mg PEG Q8 [facility] Last Admin: 11/24/16 16:40 Dose: 4 mg Silver Sulfadiazine (Silvadene 1% 20 Gm) 0 ea TOP BID [facility] Last Admin: 12/10/16 17:34 Dose: 2 applic Vancomycin HCl (Vancocin (Oral/Rectal Use)) 125 mg PO Q8 [facility] Last Admin: 12/10/16 17:33 Dose: 125 mg - Labs Labs: 12/10/16 04:30 12/10/16 04:30 PT 14.9 SECONDS (9.6-11.2) H 12/08/16 04:20 INR 1.43 (0.92-1.08) H 12/08/16 04:20 APTT 33.9 SECONDS (23.3-32.5) H D 11/24/16 06:00 - Respiratory Exam Respiratory Exam: NORMAL BREATHING PATTERN - Cardiovascular Exam Cardiovascular Exam: REGULAR RHYTHM - GI/Abdominal Exam GI & Abdominal Exam: Normal Bowel Sounds Assessment and Plan - Assessment and Plan (Free Text) Assessment: S/P Acute Respiratory Failure Asystole Intubated Tracheostomy?? Aspiration?? HX COPD Klebsiella Pneumonia MDR ABX IVF Steroids Pulmonary ID Anoxic encephalopathy 2 to above Methyphenidate and amantidine Neuro note appreciated S/P Asystole 2 to Pulmonary dx (S/P V-fib/ V-tach 2 to pulmonary dx) A-fib CAD S/P CABG Amiodorone Cardiology SMITA/ CKD 2 to Sepsis acute ischemia ATN Improving Nephrology Anemia etiol? Chronic dx CKD + guaic Transfusion HX Hyperkalemia and hypokalemia etiol ?? Adrenal insufficiency?? Hx of Orthostatic Hypotension at SD ACTH Cortisol level ?? Florinef d/c Endocronology Swallowing?? aspiration?? PEG Jevity and oral feedings Hx s/p + C-diff + Ag -toxin Hx Dec oral intake improved on Megace Sick Euthyroid syndrome Endo Chronic chest wall pain Pain meds
--- NOTE | 2016-12-10 20:16 | CP.PCM.PN ---
Subjective - Date & Time of Evaluation Date of Evaluation: 12/10/16 Time of Evaluation: 20:14 - Subjective Subjective: Mr. Bellamy was seen and examined today at bedside in the ICU. He had a trach placed yesterday and seems to have tolerated the procedure well. He received doses of Ritalin and amantadine today, but does not seem to have any change in his clinical status as per nursing. On my exam, he was neurologically unchanged. His eyes opened to pain, but not voice. He had little withdrawal in all extremities to pain. Objective - Vital Signs/Intake and Output Vital Signs (last 24 hours): Temp Pulse Resp BP Pulse Ox 99.5 F 87 26 H 150/82 100 12/10/16 15:00 12/10/16 17:00 12/10/16 17:00 12/10/16 17:00 12/10/16 17:00 Intake and Output: 12/10/16 12/11/16 18:59 06:59 Intake Total 1340 Output Total 1050 Balance 290 - Medications Medications: Current Medications Albuterol Sulfate (Albuterol 0.083% Inhal Mary (2.5 Mg/3 Ml) Ud) 2.5 mg INH RQ4 PRN PRN Reason: Shortness of Breath Last Admin: 11/23/16 03:48 Dose: 2.5 mg Albuterol/Ipratropium (Duoneb 3 Mg/0.5 Mg (3 Ml) Ud) 3 ml INH RQ6 [facility] Last Admin: 12/10/16 14:39 Dose: 3 ml Amantadine HCl (Amantadine 100 Mg Cap) 100 mg PO BID [facility] Last Admin: 12/10/16 17:33 Dose: 100 mg Amiodarone HCl (Cordarone) 200 mg PO DAILY [facility] Last Admin: 12/10/16 11:46 Dose: 200 mg Collagenase (Santyl) 1 applic TOP DAILY [facility] Dimethicone (Proshield Plus Skin Protectant) 1 applic TOP BID [facility] Last Admin: 12/10/16 17:35 Dose: 1 applic Metronidazole (Flagyl 500mg/100ml Ns) 100 mls @ 100 mls/hr IVPB Q8 [facility] Last Admin: 12/10/16 17:36 Dose: 100 mls/hr Methylphenidate HCl (Ritalin) 10 mg PO DAILY [facility] Last Admin: 05/24/17 11:45 Dose: 10 mg Metoprolol Tartrate (Lopressor) 25 mg PO Q12 [facility] Last Admin: 12/10/16 08:01 Dose: 25 mg Ondansetron HCl (Zofran Odt) 4 mg PEG Q8 [facility] Last Admin: 11/24/16 16:40 Dose: 4 mg Silver Sulfadiazine (Silvadene 1% 20 Gm) 0 ea TOP BID [facility] Last Admin: 12/10/16 17:34 Dose: 2 applic Vancomycin HCl (Vancocin (Oral/Rectal Use)) 125 mg PO Q8 [facility] Last Admin: 12/10/16 17:33 Dose: 125 mg - Labs Labs: 12/10/16 04:30 12/10/16 04:30 PT 14.9 SECONDS (9.6-11.2) H 12/08/16 04:20 INR 1.43 (0.92-1.08) H 12/08/16 04:20 APTT 33.9 SECONDS (23.3-32.5) H D 11/24/16 06:00 - Neurological Exam Additional comments: Neurologically unchanged compared with previous examination. Assessment and Plan (1) Anoxic brain injury Assessment & Plan: Will continue stimulant challenge and obtain a repeat EEG tomorrow to evaluate for any change in cortical function. Status: Acute
[2016-12-11] MEDS: metroNIDAZOLE 500mg/100ml NS 100 ML IVPB SCH ×3 (00:04→16:01)
[2016-12-11] MEDS: Albuterol-Ipratrop 3 mg / 0.5 (3 ml) UD INH SCH ×4 (01:00→20:30)
[2016-12-11] MEDS: Vancomycin 500 mg (Oral/Rectal USE) PO SCH ×3 (01:01→16:02)
[2016-12-11 05:30] LABS: ALB/GLOB RATIO 0.9 (1.0-2.1); ALKALINE PHOSPHATASE 120 U/L (38-126); ALT/SGPT 38 U/L (21-72); AST/SGOT 31 U/L (17-59); BILIRUBIN,TOTAL 0.3 mg/dl (0.2-1.3); BLOOD UREA NITROGEN 37 mg/dl (9-20); CALCIUM 7.8 mg/dL (8.4-10.2); CARBON DIOXIDE 22 mmol/L (22-30); CHLORIDE 108 mmol/L (98-107); GFR AFRICAN-AMERICAN > 60; GLUCOSE,RANDOM 120 mg/dL (75-110); POTASSIUM 3.6 MMOL/L (3.6-5.0); SODIUM 138 mmol/l (132-148); TOTAL PROTEIN 4.6 G/DL (6.3-8.2)
[2016-12-11 05:33] LABS: BASO % 0.2 % (0.0-2.0); EOS % 0.4 % (0.0-4.0); HEMATOCRIT 28.4 % (35.0-51.0); LYMPH # 0.7 K/uL (1.0-4.3); LYMPH % 5.4 % (20.0-40.0); MEAN CELL VOLUME 88.5 fl (80.0-94.0); MEAN CORPUSCULAR HEMOGLOBIN 28.7 pg (27.0-31.0); MEAN CORPUSCULAR HGB CONC 32.4 g/dL (33.0-37.0); MEAN PLATELET VOLUME 10.6 fl (7.2-11.7); MONO % 8.2 % (0.0-10.0); NEUT # 10.6 K/uL (1.8-7.0); NEUT % 85.8 % (50.0-75.0); PLATELET COUNT 156 K/uL (130-400); RED CELL DISTRIBUTION WIDTH 16.3 % (11.5-14.5); WHITE BLOOD COUNT 12.3 K/uL (4.8-10.8)
[2016-12-11 05:53] LABS: ABG ALLEN TEST YES; ARTERIAL BLOOD GAS HCO3 24.9 mmol/L (21-28); ARTERIAL BLOOD GAS MODE CPAP; ARTERIAL BLOOD GAS O2 CAPACITY 13.5 mL/dL (16-24); ARTERIAL BLOOD GAS O2 CONTENT 13.5 ML/dL (15-23); ARTERIAL BLOOD GAS PH 7.49 (7.35-7.45); ARTERIAL BLOOD GAS PO2 132 mm/Hg (80-100); ARTERIAL BLOOD HGB O2 SAT 95.9 % (95.0-98.0); CARBOXYHEMOGLOBIN 1.2 % (0.5-1.5); HHB 0.3 % (0.0-5.0); METHEMOGLOBIN 2.6 % (0.0-3.0)
[2016-12-11] MEDS: Proshield Plus GEL TOP SCH ×2 (08:27→16:02)
--- NOTE | 2016-12-11 08:27 | CP.PCM.PN ---
Subjective - Date & Time of Evaluation Date of Evaluation: 12/11/16 Time of Evaluation: 08:27 - Subjective Subjective: Seen on morning rounds in ICU. Clinically appears about the same. Remains afebrile with stable vital signs. Increased WBC's today (12.3) and Hgb 9.2 with plts 156. Remains mildly alkalotic (resp) and well oxygenated. Increased volume of garcia purulent sputum suctioned. Unable to see today's CXR, no report yet. Opens eyes to noxious stimuli, does not follow commands. Tracheostomy clean, functioning. SpO2 100% on CPAP/PS (11/28) and 40% oxygen. No dullness on chest percussion, no subcut emphysema. Coarse rhonchi present in both lungs today. No audible wheezing or bronchial breathing. Mild dependant edema, no cyanosis. Remains in a fib, rate controlled. Sputum suctioned and specimen obtained for culture. Awaiting access to PACS to review today's CXR. Consider re-establishing antibiotic for pulmonary coverage. Probably can switch to trach collar O2 once volume of secretions decreased. group home acute care? Objective - Vital Signs/Intake and Output Vital Signs (last 24 hours): Temp Pulse Resp BP Pulse Ox 99.7 F H 89 28 H 150/86 100 12/11/16 04:00 12/11/16 06:00 12/11/16 06:00 12/11/16 06:00 12/11/16 06:00 Intake and Output: 12/10/16 12/11/16 23:59 11:59 Intake Total 1395 860 Output Total 750 800 Balance 645 60 - Medications Medications: Current Medications Albuterol Sulfate (Albuterol 0.083% Inhal Mary (2.5 Mg/3 Ml) Ud) 2.5 mg INH RQ4 PRN PRN Reason: Shortness of Breath Last Admin: 11/23/16 03:48 Dose: 2.5 mg Albuterol/Ipratropium (Duoneb 3 Mg/0.5 Mg (3 Ml) Ud) 3 ml INH RQ6 [facility] Last Admin: 12/11/16 01:00 Dose: 3 ml Amantadine HCl (Amantadine 100 Mg Cap) 100 mg PO BID [facility] Last Admin: 12/10/16 17:33 Dose: 100 mg Amiodarone HCl (Cordarone) 200 mg PO DAILY [facility] Last Admin: 12/10/16 11:46 Dose: 200 mg Collagenase (Santyl) 1 applic TOP DAILY [facility] Dimethicone (Proshield Plus Skin Protectant) 1 applic TOP BID [facility] Last Admin: 12/10/16 17:35 Dose: 1 applic Metronidazole (Flagyl 500mg/100ml Ns) 100 mls @ 100 mls/hr IVPB Q8 [facility] Last Admin: 12/11/16 00:04 Dose: 100 mls/hr Methylphenidate HCl (Ritalin) 10 mg PO DAILY [facility] Last Admin: 12/10/16 11:45 Dose: 10 mg Metoprolol Tartrate (Lopressor) 25 mg PO Q12 [facility] Last Admin: 12/10/16 20:20 Dose: 25 mg Ondansetron HCl (Zofran Odt) 4 mg PEG Q8 [facility] Last Admin: 11/24/16 16:40 Dose: 4 mg Silver Sulfadiazine (Silvadene 1% 20 Gm) 0 ea TOP BID [facility] Last Admin: 12/10/16 17:34 Dose: 2 applic Vancomycin HCl (Vancocin (Oral/Rectal Use)) 125 mg PO Q8 [facility] Last Admin: 12/11/16 01:01 Dose: 125 mg - Labs Labs: 12/11/16 04:40 12/11/16 04:40 PT 14.9 SECONDS (9.6-11.2) H 12/08/16 04:20 INR 1.43 (0.92-1.08) H 12/08/16 04:20 APTT 33.9 SECONDS (23.3-32.5) H D 11/24/16 06:00 Assessment and Plan (1) Respiratory failure with hypercapnia Status: Resolved (2) Endotracheally intubated Status: Resolved (3) On mechanically assisted ventilation Status: Acute (4) Pneumonia Status: Resolved (5) COPD exacerbation Status: Resolved
[2016-12-11] MEDS: Santyl Collagenase OINTMENT TOP SCH (08:28)
[2016-12-11] MEDS: Silver Sulfadiazine 1% Cream (20 gm) TOP SCH ×2 (08:29→16:02)
--- NOTE | 2016-12-11 09:06 | CP.CCUPN ---
CCU Subjective - Physician Review Subjective (Free Text): FRONT OFFICE ATTENDANT PROGRESS NOTE Patient examined, interim events reviewed: Remains comatose, s/p Trach 2 days ago, placed back to CPAP 5, PS 12, RR 28 with good tolerance. BP trends show systolic and diastolic elevations, especially now while on methylphenidate. No recurrent Fever spikes, BP 150/86, HR 85 in A Fib. No IVFs started, but tube feed water flushes are 200ml Q4h. 24H I/Os = 2635/1850ml. No gross seizure activity reported. Descriptions noted regarding increase in spontaneous movements, but none observed this AM. ROS: All pertinent Nursing notes and all other 10+ systems reviewed: otherwise non-obtainable and as above. PMSFH: No other new pertinent information relative to current medical problems noted. No other distress noted: EXAM- HEENT: no icterus, pupils midline, equal and reactive, no nystagmus, occasional mild chewing activity noted. NECK: no visible JVD, supple, carotids equal upstroke bilat/no bruits CHEST: decreased BS bases, no wheezes audible. HEART: regular, distant, S1S2, no murmur audible, no rubs. ABD: soft, flat, PEG intact, no increased distention, no focal tenderness, no HSM. BS hypoactive. EXT: trace LE edema, no peripheral/ digital cyanosis, no calf tenderness or palpable cords, distal pulses intact and symmetrical NEURO: flaccid x 4, no purposeful motor activity. SKIN: no rashes LABS: 7.49/30/132 WBC= 12.3 HGB= 9.2 PLTs = 156K Na= 138 K= 3.6 HCO3= 22 BUN/Cr= 37/1.4 BO=112 CXR: Trach tube position Ok within tracheal air column, bi-basilar haziness persists, prominent skin fold R lung field (my interp). Assessment: 1. Wes-Asystole Code 2 Retained secretions /Cardiomyopathy 2. Acute Resp Insuff, r/o 2 Chronic Aspiration events due to PO meals with PEG feeds. 3. Coma 2 Anoxic Encephalopathy 4. Acute Anemia 2 non-Blood loss and Chronic Disease state. 5. Acute on Chronic Kidney Disease III, r/o ATN from recent Code Blue. PLAN: 1. Consider removing from trach and place on trach collar trials. Otherwise, could lower PS level by half as tolerated. 2. Methylphenidate / Amantadine as per Neuro. 3. Needs PICC line, unless satisfactory peripheral IV line can be obtained soon. 4. HGb stable post PRBCS that were given on 12/05/16. 5. Scheduled for EEG today. 6. Consider long-term placement.
--- NOTE | 2016-12-11 09:27 | CP.PCM.PN ---
Subjective - Date & Time of Evaluation Date of Evaluation: 12/11/16 Time of Evaluation: 09:00 - Subjective Subjective: UNRESPONSIVE TO VERBAL STIMULI Objective - Vital Signs/Intake and Output Vital Signs (last 24 hours): Temp Pulse Resp BP Pulse Ox 98.6 F 91 H 28 H 155/85 H 100 12/11/16 08:00 12/11/16 08:27 12/11/16 08:00 12/11/16 08:27 12/11/16 08:00 Intake and Output: 12/11/16 12/11/16 06:59 18:59 Intake Total 1295 Output Total 800 Balance 495 - Medications Medications: Current Medications Albuterol Sulfate (Albuterol 0.083% Inhal Mary (2.5 Mg/3 Ml) Ud) 2.5 mg INH RQ4 PRN PRN Reason: Shortness of Breath Last Admin: 11/23/16 03:48 Dose: 2.5 mg Albuterol/Ipratropium (Duoneb 3 Mg/0.5 Mg (3 Ml) Ud) 3 ml INH RQ6 [facility] Last Admin: 12/11/16 08:23 Dose: 3 ml Amantadine HCl (Amantadine 100 Mg Cap) 100 mg PO BID [facility] Last Admin: 12/11/16 08:26 Dose: 100 mg Amiodarone HCl (Cordarone) 200 mg PO DAILY [facility] Last Admin: 12/11/16 08:26 Dose: 200 mg Collagenase (Santyl) 1 applic TOP DAILY [facility] Last Admin: 12/11/16 08:28 Dose: 1 applic Dimethicone (Proshield Plus Skin Protectant) 1 applic TOP BID [facility] Last Admin: 12/11/16 08:27 Dose: 1 applic Metronidazole (Flagyl 500mg/100ml Ns) 100 mls @ 100 mls/hr IVPB Q8 [facility] Last Admin: 12/11/16 08:27 Dose: 100 mls/hr Methylphenidate HCl (Ritalin) 10 mg PO DAILY [facility] Last Admin: 12/11/16 08:28 Dose: 10 mg Metoprolol Tartrate (Lopressor) 25 mg PO Q12 [facility] Last Admin: 12/11/16 08:27 Dose: 25 mg Ondansetron HCl (Zofran Odt) 4 mg PEG Q8 [facility] Last Admin: 11/24/16 16:40 Dose: 4 mg Silver Sulfadiazine (Silvadene 1% 20 Gm) 0 ea TOP BID [facility] Last Admin: 12/11/16 08:29 Dose: 1 applic Vancomycin HCl (Vancocin (Oral/Rectal Use)) 125 mg PO Q8 [facility] Last Admin: 12/11/16 08:29 Dose: 125 mg - Labs Labs: 12/11/16 04:40 12/11/16 04:40 PT 14.9 SECONDS (9.6-11.2) H 12/08/16 04:20 INR 1.43 (0.92-1.08) H 12/08/16 04:20 APTT 33.9 SECONDS (23.3-32.5) H D 11/24/16 06:00 - Respiratory Exam Respiratory Exam: Rhonchi - Cardiovascular Exam Cardiovascular Exam: REGULAR RHYTHM, +S1, +S2 - Additional Findings Additional findings: ASSISTANT REFINERY OPERATOR SHOWED ATRIAL FIBRILLATION EARLIER AND THE PATIENT JUST WNT BACK TO SINUS RHYTHM PULMONARY, HEAVY EQUIPMENT ENGINE MECHANIC AND NEUROLOGY NOTES REVIEWED Assessment and Plan - Assessment and Plan (Free Text) Assessment: RESPIRATORY FAILURE CAD ANOXIC ENCEPHALOPATHY ACUTE ON CHRONIC KIDNEY DISEASE POOR PROGNOSIS Plan: CONTINUE AMIODARONE, METOPROLOL, ANTIBIOTICS RITALIN AND AMANTADINE PER NEUROLOGY FOR PROBABLE LTAC UNIT
--- NOTE | 2016-12-11 10:18 | CP.PCM.PN ---
Subjective - Date & Time of Evaluation Date of Evaluation: 12/11/16 Time of Evaluation: 10:16 - Subjective Subjective: This is a general surgery progress note for Dr. Snell: 71 y/o male Pt S&E. NAEO. Pt with Trach, on PRVC w/ 40% FIO2, peep 5, rate 24. Pt remains unresponsive. Objective - Vital Signs/Intake and Output Vital Signs (last 24 hours): Temp Pulse Resp BP Pulse Ox 98.6 F 91 H 28 H 155/85 H 100 12/11/16 08:00 12/11/16 08:27 12/11/16 08:00 12/11/16 08:27 12/11/16 08:00 Intake and Output: 12/11/16 12/11/16 06:59 18:59 Intake Total 1295 Output Total 800 Balance 495 - Medications Medications: Current Medications Albuterol Sulfate (Albuterol 0.083% Inhal Mary (2.5 Mg/3 Ml) Ud) 2.5 mg INH RQ4 PRN PRN Reason: Shortness of Breath Last Admin: 11/23/16 03:48 Dose: 2.5 mg Albuterol/Ipratropium (Duoneb 3 Mg/0.5 Mg (3 Ml) Ud) 3 ml INH RQ6 [facility] Last Admin: 12/11/16 08:23 Dose: 3 ml Amantadine HCl (Amantadine 100 Mg Cap) 100 mg PO BID [facility] Last Admin: 12/11/16 08:26 Dose: 100 mg Amiodarone HCl (Cordarone) 200 mg PO DAILY [facility] Last Admin: 12/11/16 08:26 Dose: 200 mg Collagenase (Santyl) 1 applic TOP DAILY [facility] Last Admin: 12/11/16 08:28 Dose: 1 applic Dimethicone (Proshield Plus Skin Protectant) 1 applic TOP BID [facility] Last Admin: 12/11/16 08:27 Dose: 1 applic Metronidazole (Flagyl 500mg/100ml Ns) 100 mls @ 100 mls/hr IVPB Q8 [facility] Last Admin: 12/11/16 08:27 Dose: 100 mls/hr Methylphenidate HCl (Ritalin) 10 mg PO DAILY [facility] Last Admin: 12/11/16 08:28 Dose: 10 mg Metoprolol Tartrate (Lopressor) 25 mg PO Q12 [facility] Last Admin: 12/11/16 08:27 Dose: 25 mg Ondansetron HCl (Zofran Odt) 4 mg PEG Q8 [facility] Last Admin: 11/24/16 16:40 Dose: 4 mg Silver Sulfadiazine (Silvadene 1% 20 Gm) 0 ea TOP BID [facility] Last Admin: 12/11/16 08:29 Dose: 1 applic Vancomycin HCl (Vancocin (Oral/Rectal Use)) 125 mg PO Q8 [facility] Last Admin: 12/11/16 08:29 Dose: 125 mg - Labs Labs: 12/11/16 04:40 12/11/16 04:40 PT 14.9 SECONDS (9.6-11.2) H 12/08/16 04:20 INR 1.43 (0.92-1.08) H 12/08/16 04:20 APTT 33.9 SECONDS (23.3-32.5) H D 11/24/16 06:00 - Constitutional Appears: No Acute Distress - Skin Skin Exam: Dry, Intact Assessment and Plan - Assessment and Plan (Free Text) Assessment: 71 yo M s/p Perc. Tracheostomy, POD #2 -Trach functioning well, gauze replaced -Suture removal in 10days from surgery -Continue care as per ICU teams JEREMIAS Snell
[2016-12-11 10:52] LABS: NEUTROPHIL 88 % (42-75); TOTAL CELLS COUNTED 100
[2016-12-11 10:54] LABS: LARGE PLATELETS PRESENT
[2016-12-11 10:55] LABS: PLATELET CLUMPS PRESENT
--- NOTE | 2016-12-11 13:35 | RAD ---
PROCEDURE: HISTORY: mechanical ventilation COMPARISON: 12/09/2016 TECHNIQUE: FINDINGS: No significant change in bilateral infiltrates and effusions. Tubes and catheters are unchanged in position. IMPRESSION: No interval change.
--- NOTE | 2016-12-11 21:13 | CP.PCM.PN ---
Subjective - Date & Time of Evaluation Date of Evaluation: 12/11/16 Time of Evaluation: 22:22 - Subjective Subjective: Opens eyes to painful stimuli Objective - Vital Signs/Intake and Output Vital Signs (last 24 hours): Temp Pulse Resp BP Pulse Ox 98.4 F 89 27 H 148/83 100 12/11/16 16:00 12/11/16 18:00 12/11/16 18:00 12/11/16 18:00 12/11/16 18:00 Intake and Output: 12/11/16 12/12/16 18:59 06:59 Intake Total 1295 Output Total 875 Balance 420 - Medications Medications: Current Medications Albuterol Sulfate (Albuterol 0.083% Inhal Mary (2.5 Mg/3 Ml) Ud) 2.5 mg INH RQ4 PRN PRN Reason: Shortness of Breath Last Admin: 11/23/16 03:48 Dose: 2.5 mg Albuterol/Ipratropium (Duoneb 3 Mg/0.5 Mg (3 Ml) Ud) 3 ml INH RQ6 [facility] Last Admin: 12/11/16 20:30 Dose: 3 ml Amantadine HCl (Amantadine 100 Mg Cap) 100 mg PO BID [facility] Last Admin: 12/11/16 16:01 Dose: 100 mg Amiodarone HCl (Cordarone) 200 mg PO DAILY [facility] Last Admin: 12/11/16 08:26 Dose: 200 mg Collagenase (Santyl) 1 applic TOP DAILY [facility] Last Admin: 12/11/16 08:28 Dose: 1 applic Dimethicone (Proshield Plus Skin Protectant) 1 applic TOP BID [facility] Last Admin: 12/11/16 16:02 Dose: 1 applic Metronidazole (Flagyl 500mg/100ml Ns) 100 mls @ 100 mls/hr IVPB Q8 [facility] Last Admin: 12/11/16 16:01 Dose: 100 mls/hr Metoprolol Tartrate (Lopressor) 25 mg PO Q12 [facility] Last Admin: 12/11/16 08:27 Dose: 25 mg Ondansetron HCl (Zofran Odt) 4 mg PEG Q8 [facility] Last Admin: 11/24/16 16:40 Dose: 4 mg Silver Sulfadiazine (Silvadene 1% 20 Gm) 0 ea TOP BID [facility] Last Admin: 12/11/16 16:02 Dose: 1 applic Vancomycin HCl (Vancocin (Oral/Rectal Use)) 125 mg PO Q8 [facility] Last Admin: 12/11/16 16:02 Dose: 125 mg - Labs Labs: 12/11/16 04:40 12/11/16 04:40 PT 14.9 SECONDS (9.6-11.2) H 12/08/16 04:20 INR 1.43 (0.92-1.08) H 12/08/16 04:20 APTT 33.9 SECONDS (23.3-32.5) H D 11/24/16 06:00 - Respiratory Exam Respiratory Exam: NORMAL BREATHING PATTERN - Cardiovascular Exam Cardiovascular Exam: REGULAR RHYTHM - GI/Abdominal Exam GI & Abdominal Exam: Normal Bowel Sounds Assessment and Plan - Assessment and Plan (Free Text) Assessment: S/P Acute Respiratory Failure Asystole Intubated Tracheostomy?? Aspiration?? HX COPD Klebsiella Pneumonia MDR ABX IVF Steroids Pulmonary ID Anoxic encephalopathy 2 to above Methyphenidate and amantidine Neuro note appreciated S/P Asystole 2 to Pulmonary dx (S/P V-fib/ V-tach 2 to pulmonary dx) A-fib CAD S/P CABG Amiodorone Cardiology SMITA/ CKD 2 to Sepsis acute ischemia ATN Improving Nephrology Anemia etiol? Chronic dx CKD + guaic Transfusion HX Hyperkalemia and hypokalemia etiol ?? Adrenal insufficiency?? Hx of Orthostatic Hypotension at [place] ACTH Cortisol level ?? Florinef d/c Endocronology Swallowing?? aspiration?? PEG Jevity and oral feedings Hx s/p + C-diff + Ag -toxin Hx Dec oral intake improved on Megace Sick Euthyroid syndrome Endo Chronic chest wall pain Pain meds
[2016-12-12] MEDS: Albuterol-Ipratrop 3 mg / 0.5 (3 ml) UD INH SCH ×4 (01:07→19:05)
[2016-12-12] MEDS: Vancomycin 500 mg (Oral/Rectal USE) PO SCH ×3 (01:42→16:15)
[2016-12-12] MEDS: metroNIDAZOLE 500mg/100ml NS 100 ML IVPB SCH ×3 (01:43→16:15)
[2016-12-12 05:02] LABS: ABG ALLEN TEST YES; ARTERIAL BLOOD GAS HCO3 25.9 mmol/L (21-28); ARTERIAL BLOOD GAS MODE CPAP/PSV; ARTERIAL BLOOD GAS O2 CAPACITY 13.3 mL/dL (16-24); ARTERIAL BLOOD GAS O2 CONTENT 13.2 ML/dL (15-23); ARTERIAL BLOOD GAS PH 7.51 (7.35-7.45); ARTERIAL BLOOD GAS PO2 151 mm/Hg (80-100); ARTERIAL BLOOD HGB O2 SAT 97.1 % (95.0-98.0); ATERIAL BLOOD GAS PEEP 5; CARBOXYHEMOGLOBIN 1.1 % (0.5-1.5); HHB 0.4 % (0.0-5.0); METHEMOGLOBIN 1.4 % (0.0-3.0)
[2016-12-12 05:25] LABS: BASO % 0.3 % (0.0-2.0); EOS % 0.5 % (0.0-4.0); HEMATOCRIT 27.4 % (35.0-51.0); LYMPH # 0.6 K/uL (1.0-4.3); LYMPH % 5.8 % (20.0-40.0); MEAN CELL VOLUME 88.5 fl (80.0-94.0); MEAN CORPUSCULAR HEMOGLOBIN 29.1 pg (27.0-31.0); MEAN CORPUSCULAR HGB CONC 32.9 g/dL (33.0-37.0); MEAN PLATELET VOLUME 10.3 fl (7.2-11.7); MONO % 9.3 % (0.0-10.0); NEUT # 8.8 K/uL (1.8-7.0); NEUT % 84.1 % (50.0-75.0); RED CELL DISTRIBUTION WIDTH 16.4 % (11.5-14.5); WHITE BLOOD COUNT 10.5 K/uL (4.8-10.8)
[2016-12-12 05:35] LABS: ALB/GLOB RATIO 0.9 (1.0-2.1); ALKALINE PHOSPHATASE 119 U/L (38-126); ALT/SGPT 37 U/L (21-72); AST/SGOT 28 U/L (17-59); BILIRUBIN,TOTAL 0.4 mg/dl (0.2-1.3); BLOOD UREA NITROGEN 33 mg/dl (9-20); CALCIUM 7.8 mg/dL (8.4-10.2); CARBON DIOXIDE 22 mmol/L (22-30); CHLORIDE 107 mmol/L (98-107); GFR AFRICAN-AMERICAN > 60; GLUCOSE,RANDOM 106 mg/dL (75-110); POTASSIUM 3.6 MMOL/L (3.6-5.0); SODIUM 137 mmol/l (132-148); TOTAL PROTEIN 4.5 G/DL (6.3-8.2)
[2016-12-12] MEDS: Silver Sulfadiazine 1% Cream (20 gm) TOP SCH (08:38)
[2016-12-12] MEDS: Proshield Plus GEL TOP SCH ×2 (08:38→16:50)
[2016-12-12] MEDS: Santyl Collagenase OINTMENT TOP SCH (08:39)
--- NOTE | 2016-12-12 08:39 | CP.PCM.PN ---
Subjective - Date & Time of Evaluation Date of Evaluation: 12/12/16 Time of Evaluation: 08:36 - Subjective Subjective: Seen on morning rounds in ICU. Case discussed with manager study and nurse. Remains neurologically unchanged. Today's CXR shows hazy lung bases (unchanged) and possible retrocardiac density. These X-ray findings have been unchanged for some time. Remains afebrile, normotensive, well oxygenated. AM ABG shows a mild alkalosis with good oxygenation. Sputum gram stain: moderate poly's, many gm neg rods. Tracheostomy site appears clean and dry. No dullness on percussion of the anterior chest wall. No subcutaneous emphysema. Breath sounds are well heard bilaterally, anteriorly and posteriorly. No audible wheezing or bronchial breathing. Few sonorous rhonchi bilaterally. Minimal ventilator changes made. Antibiotic changes as needed based on culture. Continued supportive care. Vent weaning if able. retirement care vs LTAC. Objective - Vital Signs/Intake and Output Vital Signs (last 24 hours): Temp Pulse Resp BP Pulse Ox 98.0 F 89 20 150/84 100 12/12/16 08:00 12/12/16 08:00 12/12/16 08:00 12/12/16 08:00 12/12/16 08:00 Intake and Output: 12/11/16 12/12/16 23:59 11:59 Intake Total 1145 700 Output Total 575 700 Balance 570 0 - Medications Medications: Current Medications Albuterol Sulfate (Albuterol 0.083% Inhal Mary (2.5 Mg/3 Ml) Ud) 2.5 mg INH RQ4 PRN PRN Reason: Shortness of Breath Last Admin: 11/23/16 03:48 Dose: 2.5 mg Albuterol/Ipratropium (Duoneb 3 Mg/0.5 Mg (3 Ml) Ud) 3 ml INH RQ6 [facility] Last Admin: 12/12/16 08:21 Dose: 3 ml Amantadine HCl (Amantadine 100 Mg Cap) 100 mg PO BID [facility] Last Admin: 12/11/16 16:01 Dose: 100 mg Amiodarone HCl (Cordarone) 200 mg PO DAILY [facility] Last Admin: 12/11/16 08:26 Dose: 200 mg Collagenase (Santyl) 1 applic TOP DAILY [facility] Last Admin: 12/11/16 08:28 Dose: 1 applic Dimethicone (Proshield Plus Skin Protectant) 1 applic TOP BID [facility] Last Admin: 12/11/16 16:02 Dose: 1 applic Metronidazole (Flagyl 500mg/100ml Ns) 100 mls @ 100 mls/hr IVPB Q8 [facility] Last Admin: 12/12/16 01:43 Dose: 100 mls/hr Metoprolol Tartrate (Lopressor) 25 mg PO Q12 [facility] Last Admin: 12/11/16 22:16 Dose: 25 mg Ondansetron HCl (Zofran Odt) 4 mg PEG Q8 [facility] Last Admin: 11/24/16 16:40 Dose: 4 mg Silver Sulfadiazine (Silvadene 1% 20 Gm) 0 ea TOP BID [facility] Last Admin: 12/11/16 16:02 Dose: 1 applic Vancomycin HCl (Vancocin (Oral/Rectal Use)) 125 mg PO Q8 [facility] Last Admin: 12/12/16 01:42 Dose: 125 mg - Labs Labs: 12/12/16 04:20 12/12/16 04:20 PT 14.9 SECONDS (9.6-11.2) H 12/08/16 04:20 INR 1.43 (0.92-1.08) H 12/08/16 04:20 APTT 33.9 SECONDS (23.3-32.5) H D 11/24/16 06:00 Assessment and Plan (1) Respiratory failure with hypercapnia Status: Resolved (2) Endotracheally intubated Status: Resolved (3) On mechanically assisted ventilation Status: Acute (4) Pneumonia Status: Resolved (5) COPD exacerbation Status: Resolved
--- NOTE | 2016-12-12 09:01 | PN ---
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 His glycemic levels are fluctuating but much improved at this time take n off IV steroid therapy the glucose values have ranged from 132 to 142 mg/dL. . Sodium 13 8, potassium , glucose 120 and creatinine 1.4. continue the present medical therapy as giv en . Will obtain . Anabella Sebastian MD cc: [phone] TT: 12/11/2016 18:03:19 Confirmation # [id number] Dictation # [id number]
--- NOTE | 2016-12-12 09:02 | CP.PCM.PN ---
Subjective - Date & Time of Evaluation Date of Evaluation: 12/12/16 Time of Evaluation: 08:45 - Subjective Subjective: UNRESPONSIVE TO VERBAL STIMULI Objective - Vital Signs/Intake and Output Vital Signs (last 24 hours): Temp Pulse Resp BP Pulse Ox 98.0 F 90 20 150/84 100 12/12/16 08:00 12/12/16 08:37 12/12/16 08:00 12/12/16 08:00 12/12/16 08:00 Intake and Output: 12/12/16 12/12/16 06:59 18:59 Intake Total 895 90 Output Total 700 Balance 195 90 - Medications Medications: Current Medications Albuterol Sulfate (Albuterol 0.083% Inhal Mary (2.5 Mg/3 Ml) Ud) 2.5 mg INH RQ4 PRN PRN Reason: Shortness of Breath Last Admin: 11/23/16 03:48 Dose: 2.5 mg Albuterol/Ipratropium (Duoneb 3 Mg/0.5 Mg (3 Ml) Ud) 3 ml INH RQ6 [facility] Last Admin: 12/12/16 08:21 Dose: 3 ml Amantadine HCl (Amantadine 100 Mg Cap) 100 mg PO BID [facility] Last Admin: 12/12/16 08:36 Dose: 100 mg Amiodarone HCl (Cordarone) 200 mg PO DAILY [facility] Last Admin: 12/12/16 08:36 Dose: 200 mg Collagenase (Santyl) 1 applic TOP DAILY [facility] Last Admin: 12/12/16 08:39 Dose: 1 applic Dimethicone (Proshield Plus Skin Protectant) 1 applic TOP BID [facility] Last Admin: 12/12/16 08:38 Dose: 1 applic Metronidazole (Flagyl 500mg/100ml Ns) 100 mls @ 100 mls/hr IVPB Q8 [facility] Last Admin: 12/12/16 08:36 Dose: 100 mls/hr Metoprolol Tartrate (Lopressor) 25 mg PO Q12 [facility] Last Admin: 12/12/16 08:37 Dose: 25 mg Ondansetron HCl (Zofran Odt) 4 mg PEG Q8 [facility] Last Admin: 11/24/16 16:40 Dose: 4 mg Silver Sulfadiazine (Silvadene 1% 20 Gm) 0 ea TOP BID [facility] Last Admin: 12/12/16 08:38 Dose: 1 applic Vancomycin HCl (Vancocin (Oral/Rectal Use)) 125 mg PO Q8 [facility] Last Admin: 12/12/16 08:37 Dose: 125 mg - Labs Labs: 12/12/16 04:20 12/12/16 04:20 PT 14.9 SECONDS (9.6-11.2) H 12/08/16 04:20 INR 1.43 (0.92-1.08) H 12/08/16 04:20 APTT 33.9 SECONDS (23.3-32.5) H D 11/24/16 06:00 - Respiratory Exam Respiratory Exam: Rhonchi - Cardiovascular Exam Cardiovascular Exam: Irregular Rhythm, +S1, +S2 - Additional Findings 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
--- NOTE | 2016-12-12 10:34 | CP.PCM.PN ---
Subjective - Date & Time of Evaluation Date of Evaluation: 12/12/16 Time of Evaluation: 10:30 - Subjective Subjective: Follow up Nephrology Note: Assessment: Non-oliguric Acute Kidney Injury likely due to ATN due to sepsis, cardiac arrest : IMPROVING (cr 1.2 now) Anemia, pneumonia, cardiac arrest now with anoxic brain injury, systolic CHF, respi failure diabetes Mellitus, hypertension, COPD, CAD s/p CABG, coronary stent, BPH, A fib Plan renal function continue to improve. maintain hemodynamic stable. supplement electrolytes. Dose meds/antibiotics for improved GFR. Avoid nephrotoxins/NSAIDs/ iodinated contrast (unless needed emergently). Glycemic control Further work up for as per primary team. Thanks for allowing me to participate in care of your patient. Please call if any Qs Dr Jhony Pate Office: [phone] ROS: Unable to obtain. noted overnight events. s/p trach Physical Examination: General Appearance: in no acute respiratory distress, s/p trach, unresponsive to commands or stimuli. overall Ill appearing . Vitals reviewed and noted as below ENT: he is s/p trach Lungs: Normal respiratory rate/effort. Breath sounds bilateral with basal rales Heart: Normal rate. s1s2 normal. No rub or gallop. Extremities: no edema. No varicose veins Neurological: Patient is unresponsive to commands or stimuli Abdomen: Abdomen is soft. Bowel sounds +. There is no guarding/rigidity or organomegaly Labs/imaging/EKG reviewed. Past medical history, past surgical history, family history, social history, allergy reviewed work up; UA: 100 pr no blood CXR: mild interstitial prominence Echo: LVEF 30-35% CT: b/l simple cysts, otherwise unremarkable [facility] BNP [id number] Objective - Vital Signs/Intake and Output Vital Signs (last 24 hours): Temp Pulse Resp BP Pulse Ox 98.0 F 82 30 H 139/88 100 12/12/16 08:00 12/12/16 10:00 12/12/16 10:00 12/12/16 10:00 12/12/16 10:00 Intake and Output: 12/12/16 12/12/16 06:59 18:59 Intake Total 895 430 Output Total 700 Balance 195 430 - Medications Medications: Current Medications Albuterol Sulfate (Albuterol 0.083% Inhal Mary (2.5 Mg/3 Ml) Ud) 2.5 mg INH RQ4 PRN PRN Reason: Shortness of Breath Last Admin: 11/23/16 03:48 Dose: 2.5 mg Albuterol/Ipratropium (Duoneb 3 Mg/0.5 Mg (3 Ml) Ud) 3 ml INH RQ6 [facility] Last Admin: 12/12/16 08:21 Dose: 3 ml Amantadine HCl (Amantadine 100 Mg Cap) 100 mg PO BID [facility] Last Admin: 12/12/16 08:36 Dose: 100 mg Amiodarone HCl (Cordarone) 200 mg PO DAILY [facility] Last Admin: 12/12/16 08:36 Dose: 200 mg Collagenase (Santyl) 1 applic TOP DAILY [facility] Last Admin: 12/12/16 08:39 Dose: 1 applic Dimethicone (Proshield Plus Skin Protectant) 1 applic TOP BID [facility] Last Admin: 12/12/16 08:38 Dose: 1 applic Metronidazole (Flagyl 500mg/100ml Ns) 100 mls @ 100 mls/hr IVPB Q8 [facility] Last Admin: 12/12/16 08:36 Dose: 100 mls/hr Metoprolol Tartrate (Lopressor) 25 mg PO Q12 [facility] Last Admin: 12/12/16 08:37 Dose: 25 mg Ondansetron HCl (Zofran Odt) 4 mg PEG Q8 [facility] Last Admin: 11/24/16 16:40 Dose: 4 mg Silver Sulfadiazine (Silvadene 1% 20 Gm) 0 ea TOP BID [facility] Last Admin: 12/12/16 08:38 Dose: 1 applic Vancomycin HCl (Vancocin (Oral/Rectal Use)) 125 mg PO Q8 [facility] Last Admin: 12/12/16 08:37 Dose: 125 mg - Labs Labs: 12/12/16 04:20 12/12/16 04:20 PT 14.9 SECONDS (9.6-11.2) H 12/08/16 04:20 INR 1.43 (0.92-1.08) H 12/08/16 04:20 APTT 33.9 SECONDS (23.3-32.5) H D 11/24/16 06:00
--- NOTE | 2016-12-12 11:42 | CP.CCUPN ---
CCU Subjective - Physician Review Subjective (Free Text): [employer] PROGRESS NOTE Patient examined, interim events reviewed: Remains obtunded, eye will spontaneously open. s/p Trach 3 days ago, good tolerance to CPAP 6, PS 16, RR 24 with good tolerance. No recurrent Fever spikes, BP 140/88, HR 81 in A Fib. No IVFs started, but tube feed water flushes are reduced to 150ml Q6h. 24H I/Os = + 0.6 L. No gross seizure activity reported. ROS: All pertinent Nursing notes and all other 10+ systems reviewed: otherwise non-obtainable and as above. PMSFH: No other new pertinent information relative to current medical problems noted. No other distress noted: EXAM- HEENT: no icterus, pupils midline, equal and reactive, no nystagmus, occasional mild chewing activity noted. NECK: no visible JVD, supple, carotids equal upstroke bilat/no bruits CHEST: decreased BS bases, no wheezes audible. HEART: regular, distant, S1S2, no murmur audible, no rubs. ABD: soft, flat, PEG intact, no increased distention, no focal tenderness, no HSM. BS hypoactive. EXT: trace LE edema, no peripheral/ digital cyanosis, no calf tenderness or palpable cords, distal pulses intact and symmetrical, Left heel ulcer remains unstageable. NEURO: flaccid x 4, no purposeful motor activity. SKIN: no rashes LABS: 7.51/30/151 WBC= 10.5 HGB= 9.0 PLTs = 147K Na= 137 K= 3.6 HCO3= 22 BUN/Cr= 33/1.2 BU=944 CXR: Trach tube position Ok within tracheal air column, bi-basilar haziness persists, no other new consolidation (my interp). Assessment: 1. Wes-Asystole Code 2 Retained secretions /Cardiomyopathy 2. Acute Resp Insuff, r/o 2 Chronic Aspiration events due to PO meals with PEG feeds. 3. Coma 2 Anoxic Encephalopathy 4. Acute Anemia 2 non-Blood loss and Chronic Disease state. 5. Acute on Chronic Kidney Disease III, r/o ATN from recent Code Blue. PLAN: 1. CPAP PS weams as per Pulm. 2. Neurostimulant medication therapy ongoing 3. Needs PICC line. 4. Daily bloodwork is impacting on stability of Hgb levels. Labs have been acceptable so far. Consider skipping a day. 5. Discussed with Pop, stable for transfer to stepdown bed on Telemetry.
--- NOTE | 2016-12-12 12:34 | CP.PCM.PN ---
Subjective - Date & Time of Evaluation Date of Evaluation: 12/12/16 Time of Evaluation: 09:00 - Subjective Subjective: remains afebrile on vent unresponsive scant secretions from trach 'repeat trach cultures show gram neg rods has been off antibiotics because of concerns for c diff earlier on grew MDRO from sputum and was treated for 21 days IV Tigecyl If ok with pulm will hold off antibiotics at this time as CXR same, afebrile and cbc ok Objective - Vital Signs/Intake and Output Vital Signs (last 24 hours): Temp Pulse Resp BP Pulse Ox 98.0 F 82 30 H 139/88 100 12/12/16 08:00 12/12/16 10:00 12/12/16 10:00 12/12/16 10:00 12/12/16 10:00 Intake and Output: 12/12/16 12/12/16 06:59 18:59 Intake Total 895 520 Output Total 700 Balance 195 520 - Medications Medications: Current Medications Albuterol Sulfate (Albuterol 0.083% Inhal Mary (2.5 Mg/3 Ml) Ud) 2.5 mg INH RQ4 PRN PRN Reason: Shortness of Breath Last Admin: 11/23/16 03:48 Dose: 2.5 mg Albuterol/Ipratropium (Duoneb 3 Mg/0.5 Mg (3 Ml) Ud) 3 ml INH RQ6 [facility] Last Admin: 12/12/16 08:21 Dose: 3 ml Amantadine HCl (Amantadine 100 Mg Cap) 100 mg PO BID [facility] Last Admin: 12/12/16 08:36 Dose: 100 mg Amiodarone HCl (Cordarone) 200 mg PO DAILY [facility] Last Admin: 12/12/16 08:36 Dose: 200 mg Dimethicone (Proshield Plus Skin Protectant) 1 applic TOP BID [facility] Last Admin: 12/12/16 08:38 Dose: 1 applic Metronidazole (Flagyl 500mg/100ml Ns) 100 mls @ 100 mls/hr IVPB Q8 [facility] Last Admin: 12/12/16 08:36 Dose: 100 mls/hr Metoprolol Tartrate (Lopressor) 25 mg PO Q12 [facility] Last Admin: 12/12/16 08:37 Dose: 25 mg Ondansetron HCl (Zofran Odt) 4 mg PEG Q8 [facility] Last Admin: 11/24/16 16:40 Dose: 4 mg Vancomycin HCl (Vancocin (Oral/Rectal Use)) 125 mg PO Q8 [facility] Last Admin: 12/12/16 08:37 Dose: 125 mg - Labs Labs: 12/12/16 04:20 12/12/16 04:20 PT 14.9 SECONDS (9.6-11.2) H 12/08/16 04:20 INR 1.43 (0.92-1.08) H 12/08/16 04:20 APTT 33.9 SECONDS (23.3-32.5) H D 11/24/16 06:00 - Constitutional Appears: Non-toxic, Older Than Stated Age, Cachectic, Chronically Ill - Head Exam Head Exam: NORMOCEPHALIC - Eye Exam Eye Exam: absent: Scleral icterus - ENT Exam ENT Exam: Mucous Membranes Dry, Normal External Ear Exam - Neck Exam Neck Exam: absent: Lymphadenopathy - Respiratory Exam Respiratory Exam: Decreased Breath Sounds, Rhonchi - Cardiovascular Exam Cardiovascular Exam: REGULAR RHYTHM, +S1, +S2 - GI/Abdominal Exam GI & Abdominal Exam: Distended, Soft. absent: Tenderness - Rectal Exam Rectal Exam: Deferred - Exam Exam: NORMAL INSPECTION - Extremities Exam Extremities Exam: absent: Pedal Edema - Back Exam Back Exam: absent: CVA tenderness (L), CVA tenderness (R) - Neurological Exam Neurological Exam: Altered, Oriented x3 - Psychiatric Exam Psychiatric exam: Depressed - Skin Skin Exam: Dry Assessment and Plan (1) COPD (chronic obstructive pulmonary disease) with acute bronchitis Status: Acute (2) Atrial fibrillation Status: Acute (3) CHF (congestive heart failure) Status: Acute (4) Dehydration Status: Acute (5) Moderate COPD (chronic obstructive pulmonary disease) Status: Acute (6) PAD (peripheral artery disease) Status: Acute (7) Pneumonia Status: Resolved (8) COPD (chronic obstructive pulmonary disease) Status: Chronic (9) COPD exacerbation Status: Resolved
--- NOTE | 2016-12-12 12:49 | RAD ---
PROCEDURE: CHEST RADIOGRAPH, 1 VIEW HISTORY: pt on ventilator COMPARISON: Comparison is made to the previous study dated 12/11/2016 FINDINGS: LUNGS: Ostomy tube seen at appropriate position. Interval slight improvement in the lungs since the previous study. PLEURA: Persistent right pleural effusion and blunting of the left costophrenic angle. CARDIOVASCULAR: The cardiac silhouette is mildly enlarged. OSSEOUS STRUCTURES: Status post sternotomy. VISUALIZED UPPER ABDOMEN: Normal. OTHER FINDINGS: Right jugular central line seen in place. IMPRESSION: Interval slight improvement in the lungs since the previous exam. Otherwise no significant change.
--- NOTE | 2016-12-12 13:00 | PN ---
DATE: 12/12/2016 ROOM: 432 ICU. This is a 71-year-old male with recent acute exacerbation of COPD with pneumonia and supervening acut e respiratory failure, currently endotracheally intubated at this time and is also being followed joseline sely for metabolic management. He received IV steroids initially and has been taken off steroid ther apy as noted. His glycemic levels are fluctuating, but improved, and the latest glucose levels have ranged from 116 -125 mg/dL. The latest chemistry showed a BUN of 33, sodium 137, potassium 3.6, chloride 107, CO2 22 , glucose 106 and creatinine 1.2. So at this time, there is no indication for any kind of basal insulin therapy as noted. Concur with the present medical and respiratory management as given and we will follow and obtain serial chemistr ies and supplement accordingly as needed. Anabella Sebastian MD cc: [phone] TT: 12/12/2016 12:59:34 Confirmation # [id number] Dictation # [id number] en
--- NOTE | 2016-12-12 16:57 | CP.PCM.PN ---
Subjective - Date & Time of Evaluation Date of Evaluation: 12/12/16 Time of Evaluation: 11:25 - Subjective Subjective: Mr. Bellamy was seen and examined today at bedside in the ICU. He was found in NAD. He opened his eyes to voice. He was not given methylphenidate this morning, but did receive amantadine, per nursing. There were no acute events overnight. Objective - Vital Signs/Intake and Output Vital Signs (last 24 hours): Temp Pulse Resp BP Pulse Ox 99.2 F 86 24 152/91 H 100 12/12/16 16:00 12/12/16 16:00 12/12/16 16:00 12/12/16 16:00 12/12/16 16:00 Intake and Output: 12/12/16 12/12/16 06:59 18:59 Intake Total 895 950 Output Total 700 Balance 195 950 - Medications Medications: Current Medications Albuterol Sulfate (Albuterol 0.083% Inhal Mary (2.5 Mg/3 Ml) Ud) 2.5 mg INH RQ4 PRN PRN Reason: Shortness of Breath Last Admin: 11/23/16 03:48 Dose: 2.5 mg Albuterol/Ipratropium (Duoneb 3 Mg/0.5 Mg (3 Ml) Ud) 3 ml INH RQ6 [facility] Last Admin: 12/12/16 13:17 Dose: 3 ml Amantadine HCl (Amantadine 100 Mg Cap) 100 mg PO BID [facility] Last Admin: 12/12/16 16:15 Dose: 100 mg Amiodarone HCl (Cordarone) 200 mg PO DAILY [facility] Last Admin: 12/12/16 08:36 Dose: 200 mg Dimethicone (Proshield Plus Skin Protectant) 1 applic TOP BID [facility] Last Admin: 12/12/16 16:50 Dose: Not Given Metronidazole (Flagyl 500mg/100ml Ns) 100 mls @ 100 mls/hr IVPB Q8 [facility] Last Admin: 12/12/16 16:15 Dose: 100 mls/hr Methylphenidate HCl (Ritalin) 10 mg PO DAILY [facility] Last Admin: 12/12/16 16:27 Dose: 10 mg Metoprolol Tartrate (Lopressor) 25 mg PO Q12 [facility] Last Admin: 12/12/16 08:37 Dose: 25 mg Ondansetron HCl (Zofran Odt) 4 mg PEG Q8 [facility] Last Admin: 11/24/16 16:40 Dose: 4 mg Vancomycin HCl (Vancocin (Oral/Rectal Use)) 125 mg PO Q8 [facility] Last Admin: 12/12/16 16:15 Dose: 125 mg - Labs Labs: 12/12/16 04:20 12/12/16 04:20 PT 14.9 SECONDS (9.6-11.2) H 12/08/16 04:20 INR 1.43 (0.92-1.08) H 12/08/16 04:20 APTT 33.9 SECONDS (23.3-32.5) H D 11/24/16 06:00 - Neurological Exam Additional comments: Neurologically unchanged compared with previous examination. Assessment and Plan (1) Anoxic brain injury Assessment & Plan: Will continue with the plan of stimulants to increase brain activity. The EEG was reviewed and did show increased amplitude and frequency when compared with the EEG done on 12/04. Status: Acute
--- NOTE | 2016-12-12 19:09 | CP.PCM.PN ---
Subjective - Date & Time of Evaluation Date of Evaluation: 12/12/16 Time of Evaluation: 22:22 - Subjective Subjective: Above noted Objective - Vital Signs/Intake and Output Vital Signs (last 24 hours): Temp Pulse Resp BP Pulse Ox 98.3 F 85 22 155/79 H 100 12/12/16 18:00 12/12/16 18:00 12/12/16 18:00 12/12/16 18:00 12/12/16 17:47 Intake and Output: 12/12/16 12/13/16 18:59 06:59 Intake Total 1040 Output Total 600 Balance 440 - Medications Medications: Current Medications Albuterol Sulfate (Albuterol 0.083% Inhal Mary (2.5 Mg/3 Ml) Ud) 2.5 mg INH RQ4 PRN PRN Reason: Shortness of Breath Last Admin: 11/23/16 03:48 Dose: 2.5 mg Albuterol/Ipratropium (Duoneb 3 Mg/0.5 Mg (3 Ml) Ud) 3 ml INH RQ6 [facility] Last Admin: 12/12/16 19:05 Dose: 3 ml Amantadine HCl (Amantadine 100 Mg Cap) 100 mg PO BID [facility] Last Admin: 12/12/16 16:15 Dose: 100 mg Amiodarone HCl (Cordarone) 200 mg PO DAILY [facility] Last Admin: 12/12/16 08:36 Dose: 200 mg Dimethicone (Proshield Plus Skin Protectant) 1 applic TOP BID [facility] Last Admin: 12/12/16 16:50 Dose: Not Given Metronidazole (Flagyl 500mg/100ml Ns) 100 mls @ 100 mls/hr IVPB Q8 [facility] Last Admin: 12/12/16 16:15 Dose: 100 mls/hr Methylphenidate HCl (Ritalin) 10 mg PO DAILY [facility] Last Admin: 12/12/16 16:27 Dose: 10 mg Metoprolol Tartrate (Lopressor) 25 mg PO Q12 [facility] Last Admin: 12/12/16 08:37 Dose: 25 mg Ondansetron HCl (Zofran Odt) 4 mg PEG Q8 [facility] Last Admin: 11/24/16 16:40 Dose: 4 mg Vancomycin HCl (Vancocin (Oral/Rectal Use)) 125 mg PO Q8 [facility] Last Admin: 12/12/16 16:15 Dose: 125 mg - Labs Labs: 12/12/16 04:20 12/12/16 04:20 PT 14.9 SECONDS (9.6-11.2) H 12/08/16 04:20 INR 1.43 (0.92-1.08) H 12/08/16 04:20 APTT 33.9 SECONDS (23.3-32.5) H D 11/24/16 06:00 - Respiratory Exam Respiratory Exam: NORMAL BREATHING PATTERN - Cardiovascular Exam Cardiovascular Exam: REGULAR RHYTHM - GI/Abdominal Exam GI & Abdominal Exam: Normal Bowel Sounds Assessment and Plan - Assessment and Plan (Free Text) Assessment: S/P Acute Respiratory Failure Asystole Tracheostomy Aspiration?? HX COPD Klebsiella Pneumonia MDR Pulmonary ID Anoxic encephalopathy 2 to above Methyphenidate and amantidine Neuro note appreciated S/P Asystole 2 to Pulmonary dx (S/P V-fib/ V-tach 2 to pulmonary dx) A-fib CAD S/P CABG Amiodorone Cardiology SMITA/ CKD 2 to Sepsis acute ischemia ATN Improving Nephrology Anemia etiol? Chronic dx CKD + guaic Transfusion
[2016-12-13] MEDS: metroNIDAZOLE 500mg/100ml NS 100 ML IVPB SCH ×3 (00:16→16:41)
[2016-12-13] MEDS: Vancomycin 500 mg (Oral/Rectal USE) PO SCH ×3 (00:23→16:41)
[2016-12-13] MEDS: Albuterol-Ipratrop 3 mg / 0.5 (3 ml) UD INH SCH ×4 (01:07→19:52)
--- NOTE | 2016-12-13 09:37 | PN ---
DATE: 12/13/2016 ROOM: 415 SUBJECTIVE: This is a 71-year-old male with recent acute respiratory failure presenting here with ac ekwok exacerbation of COPD and is now being followed closely for metabolic management. He was initiall y started on high dose IV steroid therapy with transient hyperglycemic accelerations that have improv ed accordingly as the IV steroids have been discontinued thereof. He remains on a CPAP at this time and obtunded with occasional eye movements as noted. He underwent a tracheostomy placement a few day s ago. His glycemic levels have improved and have ranged from 116-125 mg/dL. His chemistries showed a BUN of 33, sodium 137, potassium 3.6, chloride 107, CO2 22, glucose 106 and creatinine 1.2. So, at this time, we will continue the current medical management as ordered. We will also obtain se rial chemistries and supplement accordingly as needed. No indication at this time for any kind of ba ghanshyam insulin therapy for now. We will follow. Anabella Sebastian MD cc: [phone] TT: 12/13/2016 09:36:28 Confirmation # [id number] Dictation # [id number] [place]
[2016-12-13] MEDS: Proshield Plus GEL TOP SCH ×2 (10:34→16:59)
--- NOTE | 2016-12-13 12:03 | CP.PCM.PN ---
Subjective - Date & Time of Evaluation Date of Evaluation: 12/13/16 Time of Evaluation: 12:01 - Subjective Subjective: Transferred to telemetry. Remains essentially unchanged neurologically. Opens his eyes to verbal stimulus, but does not fix his vision. Does not follow any commands. On CPAP/PS ventilation 01/02, with 35% O2. SpO2 100% with RR 24 BPM. Suctioned a small to moderate amount of purulent secretions from trach tube. Recent culture has Klebsiella pneumoniae and Pseudomonas aeruginosa. He does remain afebrile and there has been no new leukocytosis. His CXR from the day prior still shows bilateral lower lobe hazy densities. On exam there are sonorous rhonchi present in both lower lobes posteriorly and laterally. No audible wheezing is heard. Few medium rales are present posteriorly. There is no dullness on percussion of the anterior chest wall. No subcut emphysema. Dependant edema is still noted. No cyanosis. Call out to ID regarding latest culture results. No ventilator change anticipated at this time. Continue aerosol therapies. Objective - Vital Signs/Intake and Output Vital Signs (last 24 hours): Temp Pulse Resp BP Pulse Ox 97.6 F 96 H 18 146/84 100 12/13/16 07:58 12/13/16 10:24 12/13/16 07:58 12/13/16 10:24 12/13/16 07:58 Intake and Output: 12/13/16 12/13/16 11:59 23:59 Intake Total 1240 Output Total 400 Balance 840 - Medications Medications: Current Medications Albuterol Sulfate (Albuterol 0.083% Inhal Mary (2.5 Mg/3 Ml) Ud) 2.5 mg INH RQ4 PRN PRN Reason: Shortness of Breath Last Admin: 11/23/16 03:48 Dose: 2.5 mg Albuterol/Ipratropium (Duoneb 3 Mg/0.5 Mg (3 Ml) Ud) 3 ml INH RQ6 [facility] Last Admin: 12/13/16 08:15 Dose: 3 ml Amantadine HCl (Amantadine 100 Mg Cap) 100 mg PO BID [facility] Last Admin: 12/13/16 10:23 Dose: 100 mg Amiodarone HCl (Cordarone) 200 mg PO DAILY [facility] Last Admin: 12/13/16 10:24 Dose: 200 mg Dimethicone (Proshield Plus Skin Protectant) 1 applic TOP BID [facility] Last Admin: 12/13/16 10:34 Dose: 1 applic Metronidazole (Flagyl 500mg/100ml Ns) 100 mls @ 100 mls/hr IVPB Q8 [facility] Last Admin: 12/13/16 10:22 Dose: 100 mls/hr Methylphenidate HCl (Ritalin) 10 mg PO DAILY [facility] Last Admin: 12/13/16 10:53 Dose: 10 mg Metoprolol Tartrate (Lopressor) 25 mg PO Q12 [facility] Last Admin: 12/13/16 10:23 Dose: 25 mg Ondansetron HCl (Zofran Odt) 4 mg PEG Q8 [facility] Last Admin: 11/24/16 16:40 Dose: 4 mg Vancomycin HCl (Vancocin (Oral/Rectal Use)) 125 mg PO Q8 [facility] Last Admin: 12/13/16 10:24 Dose: 125 mg - Labs Labs: 12/12/16 04:20 12/12/16 04:20 PT 14.9 SECONDS (9.6-11.2) H 12/08/16 04:20 INR 1.43 (0.92-1.08) H 12/08/16 04:20 APTT 33.9 SECONDS (23.3-32.5) H D 11/24/16 06:00 Assessment and Plan (1) Respiratory failure with hypercapnia Status: Resolved (2) Endotracheally intubated Status: Resolved (3) On mechanically assisted ventilation Status: Acute (4) Pneumonia Status: Resolved (5) COPD exacerbation Status: Resolved
[2016-12-13] MEDS: Gentamicin 60mg/50ml NS 60 MG/50 ML BAG IVPB SCH ×2 (13:07→21:01)
--- NOTE | 2016-12-13 13:21 | CP.PCM.PN ---
Subjective - Date & Time of Evaluation Date of Evaluation: 12/13/16 Time of Evaluation: 13:19 - Subjective Subjective: seen and examined no acute events on vent Objective - Vital Signs/Intake and Output Vital Signs (last 24 hours): Temp Pulse Resp BP Pulse Ox 97.7 F 96 H 18 121/85 98 12/13/16 12:36 12/13/16 12:36 12/13/16 12:36 12/13/16 12:36 12/13/16 12:36 Intake and Output: 12/13/16 12/13/16 06:59 18:59 Intake Total 1240 Output Total 400 Balance 840 - Medications Medications: Current Medications Albuterol Sulfate (Albuterol 0.083% Inhal Mary (2.5 Mg/3 Ml) Ud) 2.5 mg INH RQ4 PRN PRN Reason: Shortness of Breath Last Admin: 11/23/16 03:48 Dose: 2.5 mg Albuterol/Ipratropium (Duoneb 3 Mg/0.5 Mg (3 Ml) Ud) 3 ml INH RQ6 [facility] Last Admin: 12/13/16 08:15 Dose: 3 ml Amantadine HCl (Amantadine 100 Mg Cap) 100 mg PO BID [facility] Last Admin: 12/13/16 10:23 Dose: 100 mg Amiodarone HCl (Cordarone) 200 mg PO DAILY [facility] Last Admin: 12/13/16 10:24 Dose: 200 mg Dimethicone (Proshield Plus Skin Protectant) 1 applic TOP BID [facility] Last Admin: 12/13/16 10:34 Dose: 1 applic Metronidazole (Flagyl 500mg/100ml Ns) 100 mls @ 100 mls/hr IVPB Q8 [facility] Last Admin: 12/13/16 10:22 Dose: 100 mls/hr Gentamicin Sulfate/Sodium Chloride (Gentamicin 60mg/50ml Ns) 60 mg in 50 mls @ 50 mls/hr IVPB Q8H [facility] Last Admin: 12/13/16 13:07 Dose: 50 mls/hr Methylphenidate HCl (Ritalin) 10 mg PO DAILY [facility] Last Admin: 12/13/16 10:53 Dose: 10 mg Metoprolol Tartrate (Lopressor) 25 mg PO Q12 [facility] Last Admin: 12/13/16 10:23 Dose: 25 mg Ondansetron HCl (Zofran Odt) 4 mg PEG Q8 [facility] Last Admin: 11/24/16 16:40 Dose: 4 mg Vancomycin HCl (Vancocin (Oral/Rectal Use)) 125 mg PO Q8 [facility] Last Admin: 12/13/16 10:24 Dose: 125 mg - Labs Labs: 12/12/16 04:20 12/12/16 04:20 PT 14.9 SECONDS (9.6-11.2) H 12/08/16 04:20 INR 1.43 (0.92-1.08) H 12/08/16 04:20 APTT 33.9 SECONDS (23.3-32.5) H D 11/24/16 06:00 - Constitutional Appears: No Acute Distress - Head Exam Head Exam: ATRAUMATIC - Eye Exam Eye Exam: Normal appearance - ENT Exam Additional comments: dry op - Neck Exam Additional comments: trach - Respiratory Exam Additional comments: mecanical bs - Cardiovascular Exam Cardiovascular Exam: +S1, +S2 - GI/Abdominal Exam Additional comments: + peg - Extremities Exam Additional comments: no edema - Neurological Exam Additional comments: open ey to voice - Psychiatric Exam Psychiatric exam: Flat Affect - Skin Skin Exam: Normal Color Assessment and Plan - Assessment and Plan (Free Text) Assessment: Assessment: SMITA/Sepsis/ Cardiac arrest/ Anemia / PNA plan: smita continues to resolves lytes are stable continue vent management and weaning as tolerated given presdiposition to smita in past would suggest avoidance of prolonged exposure to aminoglycosides and discuss w/ ID re: checking levels
[2016-12-14] MEDS: Albuterol-Ipratrop 3 mg / 0.5 (3 ml) UD INH SCH ×4 (01:11→19:29)
[2016-12-14] MEDS: metroNIDAZOLE 500mg/100ml NS 100 ML IVPB SCH ×3 (01:46→17:39)
[2016-12-14] MEDS: Vancomycin 500 mg (Oral/Rectal USE) PO SCH ×3 (01:47→16:49)
[2016-12-14] MEDS: Gentamicin 60mg/50ml NS 60 MG/50 ML BAG IVPB SCH ×3 (04:16→21:10)
[2016-12-14] MEDS: Proshield Plus GEL TOP SCH ×2 (10:18→20:32)
--- NOTE | 2016-12-14 11:26 | PN ---
DATE: 12/14/2016 ROOM: 415 This is a 71-year-old male with recent acute respiratory failure and supervening acute pneumonitis an d has since then been extubated and currently on a tracheostomy collar on mechanical ventilation and remains unresponsive and obtunded at this time and has been transferred to telemetry unit as noted. His glycemic levels are much improved at this time after the discontinuation of the IV steroid therap y as noted. His latest glucose levels have ranged from 116-125 mg/dL. His latest chemistries showed a BUN of 33, sodium 137, potassium 3.6, chloride 107, CO2 22, glucose 106 and creatinine 1.2. So at this time, we will continue the present medical management and also the serial chemistries to b e obtained and we will supplement accordingly as needed. We will follow. Anabella Sebastian MD cc: [id number] TT: 12/14/2016 11:25:17 Confirmation # [id number] Dictation # [id number] en
--- NOTE | 2016-12-14 15:07 | CP.PCM.PN ---
Subjective - Date & Time of Evaluation Date of Evaluation: 12/14/16 Time of Evaluation: 07:00 - Subjective Subjective: remains afebrile on vent unresponsive scant secretions from trach 'repeat trach cultures show gram neg rods- mdro pseudomonas and klebs has been off antibiotics because of concerns for c diff earlier on grew MDRO from sputum and was treated for 21 days IV Tigecyl Objective - Vital Signs/Intake and Output Vital Signs (last 24 hours): Temp Pulse Resp BP Pulse Ox 98.5 F 109 H 44 H 146/94 H 100 12/14/16 11:00 12/14/16 11:00 12/14/16 11:00 12/14/16 11:00 12/14/16 11:00 Intake and Output: 12/14/16 12/14/16 06:59 18:59 Intake Total 1845 Output Total 600 Balance 1245 - Medications Medications: Current Medications Albuterol Sulfate (Albuterol 0.083% Inhal Mary (2.5 Mg/3 Ml) Ud) 2.5 mg INH RQ4 PRN PRN Reason: Shortness of Breath Last Admin: 11/23/16 03:48 Dose: 2.5 mg Albuterol/Ipratropium (Duoneb 3 Mg/0.5 Mg (3 Ml) Ud) 3 ml INH RQ6 [facility] Last Admin: 12/14/16 14:35 Dose: 3 ml Amantadine HCl (Amantadine 100 Mg Cap) 100 mg PO BID [facility] Last Admin: 12/14/16 10:16 Dose: 100 mg Amiodarone HCl (Cordarone) 200 mg PO DAILY [facility] Last Admin: 12/14/16 10:16 Dose: 200 mg Dimethicone (Proshield Plus Skin Protectant) 1 applic TOP BID [facility] Last Admin: 12/14/16 10:18 Dose: 1 applic Metronidazole (Flagyl 500mg/100ml Ns) 100 mls @ 100 mls/hr IVPB Q8 [facility] Last Admin: 12/14/16 10:18 Dose: 100 mls/hr Gentamicin Sulfate/Sodium Chloride (Gentamicin 60mg/50ml Ns) 60 mg in 50 mls @ 50 mls/hr IVPB Q8H [facility] Last Admin: 12/14/16 04:16 Dose: 50 mls/hr Methylphenidate HCl (Ritalin) 10 mg PO DAILY [facility] Last Admin: 12/14/16 10:17 Dose: 10 mg Ondansetron HCl (Zofran Odt) 4 mg PEG Q8 [facility] Last Admin: 11/24/16 16:40 Dose: 4 mg Vancomycin HCl (Vancocin (Oral/Rectal Use)) 125 mg PO Q8 [facility] Last Admin: 12/14/16 10:17 Dose: 125 mg - Labs Labs: 12/12/16 04:20 12/12/16 04:20 PT 14.9 SECONDS (9.6-11.2) H 12/08/16 04:20 INR 1.43 (0.92-1.08) H 12/08/16 04:20 APTT 33.9 SECONDS (23.3-32.5) H D 11/24/16 06:00 - Constitutional Appears: Non-toxic, Confused, Cachectic, Chronically Ill - Head Exam Head Exam: NORMOCEPHALIC - Eye Exam Eye Exam: absent: PERRL, Scleral icterus - ENT Exam ENT Exam: Mucous Membranes Dry, Normal External Ear Exam - Neck Exam Neck Exam: absent: Lymphadenopathy - Respiratory Exam Respiratory Exam: Decreased Breath Sounds, Rhonchi - Cardiovascular Exam Cardiovascular Exam: REGULAR RHYTHM - GI/Abdominal Exam GI & Abdominal Exam: Distended, Soft - Rectal Exam Rectal Exam: Deferred - Exam Exam: NORMAL INSPECTION - Extremities Exam Extremities Exam: absent: Pedal Edema - Back Exam Back Exam: absent: CVA tenderness (L), CVA tenderness (R) - Neurological Exam Neurological Exam: Altered - Psychiatric Exam Psychiatric exam: Depressed - Skin Skin Exam: Dry, Intact Assessment and Plan (1) COPD (chronic obstructive pulmonary disease) with acute bronchitis Status: Acute (2) Atrial fibrillation Status: Acute (3) CHF (congestive heart failure) Status: Acute (4) Dehydration Status: Acute (5) Moderate COPD (chronic obstructive pulmonary disease) Status: Acute (6) PAD (peripheral artery disease) Status: Acute (7) Pneumonia Status: Resolved (8) COPD (chronic obstructive pulmonary disease) Status: Chronic (9) COPD exacerbation Status: Resolved
[2016-12-14] MEDS ORDERED: Acetaminophen 650mg/20.3ml solution UD PO STA (16:23)
[2016-12-14 16:35] LABS: BASO % 0.2 % (0.0-2.0); EOS % 0.3 % (0.0-4.0); LYMPH # 0.8 K/uL (1.0-4.3); LYMPH % 6.1 % (20.0-40.0); MEAN CELL VOLUME 89.3 fl (80.0-94.0); MEAN CORPUSCULAR HEMOGLOBIN 28.6 pg (27.0-31.0); MEAN PLATELET VOLUME 10.3 fl (7.2-11.7); MONO # 1.1 K/uL (0.0-0.8); MONO % 8.7 % (0.0-10.0); NEUT # 10.5 K/uL (1.8-7.0); NEUT % 84.7 % (50.0-75.0); PLATELET COUNT 197 K/uL (130-400); WHITE BLOOD COUNT 12.4 K/uL (4.8-10.8)
[2016-12-14 16:53] LABS: ALB/GLOB RATIO 0.9 (1.0-2.1); ALKALINE PHOSPHATASE 187 U/L (38-126); ALT/SGPT 34 U/L (21-72); AST/SGOT 34 U/L (17-59); BILIRUBIN,TOTAL 0.5 mg/dl (0.2-1.3); BLOOD UREA NITROGEN 35 mg/dl (9-20); CALCIUM 7.9 mg/dL (8.4-10.2); CARBON DIOXIDE 22 mmol/L (22-30); CHLORIDE 106 mmol/L (98-107); GFR AFRICAN-AMERICAN > 60; GLUCOSE,RANDOM 97 mg/dL (75-110); POTASSIUM 4.3 MMOL/L (3.6-5.0); SODIUM 135 mmol/l (132-148); TOTAL PROTEIN 5.2 G/DL (6.3-8.2)
--- NOTE | 2016-12-14 16:58 | RAD ---
PROCEDURE: CHEST RADIOGRAPH, 1 VIEW HISTORY: SOB COMPARISON: Comparison chest dated 12/12/2016 FINDINGS: LUNGS: In situ tracheostomy tube in good position. Interval removal previously noted right IJ central venous line. Diffuse increased central vascular markings likely representing mild chronic compensated pulmonary edema/CHF. Mild bibasilar atelectasis with bilateral effusions. PLEURA: No apparent pneumothorax CARDIOVASCULAR: Cardiomegaly sternotomy wires unchanged OSSEOUS STRUCTURES: No significant abnormalities. VISUALIZED UPPER ABDOMEN: Normal. OTHER FINDINGS: None. IMPRESSION: In situ tracheostomy tube in good position. Interval removal previously noted right IJ central venous line. Diffuse increased central vascular markings likely representing mild chronic compensated pulmonary edema/CHF. Mild bibasilar atelectasis with bilateral effusions.
--- NOTE | 2016-12-14 17:39 | PCM.RRTMUL ---
<Barbara Garcia - Last Filed: 12/14/16 17:36> MACHINE BASTER Nurse Assessment - Situation MACHINE BASTER Responder Arrival Time:: 16:00 Location:: [address] [place] [address] Room Number:: 415 MACHINE BASTER Reason for Call: Respiratory Distress MACHINE BASTER Called By: RN - IV IV Inserted during MACHINE BASTER?: No - Respiratory Received Nebulizer Treatments:: Yes Was the Patient Ventilated with Bag/Mask 100% O2?: Yes Secretions Suctioned?: Yes Was the Patient Intubated?: No - Ventilator Settings Mode:: prvc/ac Ventilator Respiratory Rate Setting:: 12 Ventilator Tidal Volume Setting:: 450 PEEP/CPAP (cm H2O):: 6 Pressure Support:: 0 SAO2 %:: 100 FIO2 (% Oxygen):: 35 - Medication Medications Administered During MACHINE BASTER :: lasix 60mg IV - Diagnostic Test Ordered EKG:: Yes Chest X-Ray:: Yes CT Scan:: No - Stat Labs Ordered MACHINE BASTER Stat Labs Ordered:: CBC, BMP, ABG CPR started during MACHINE BASTER?: No - Vital Signs Blood Pressure:: 136/84 Pulse Rate:: 108 Respiratory Rate:: 50 Temperature:: 98.3 F Oxygen Saturation:: 100 - [place] Coma Scale Coma Scale Eye Opening:: No response Coma Scale Motor:: Withdraw response to pain Coma Scale Verbal:: No response Coma Scale Total:: 6 - Time MACHINE BASTER Ended Time MACHINE BASTER Ended:: 16:30 - Vital Signs at end of MACHINE BASTER Blood Pressure:: 125/85 Pulse Rate:: 108 Respiratory Rate:: 38 Temperature:: 97.4 F O2 Sat by Pulse Oximetry:: 100 - Constitutional Additional Comments: Unresponsive - Cardiovascular Exam Cardiovascular Exam: Tachycardia, REGULAR RHYTHM, +S1, +S2 - GI/Abdominal Exam GI & Abdominal Exam: Soft, Diminished Bowel Sounds. absent: Tenderness - Neurological Exam Neurological Exam: absent: Alert, Awake, Oriented x3 Additional exam: Unresponsive, coma state - Extremities Exam Additional comments: Peripheral pulses present and bilateral Plan - A. End of MACHINE BASTER Vital Signs: Blood Pressure: 125/85 Pulse Rate: 108 Respiratory Rate: 38 Temperature: 97.4 F O2 Sat by Pulse Oximetry: 100 - B. Assessment of Findings&Treatment Plan 71 yo M with PMHx of A fib, BPH, COPD, CHF, CAD, DM type 2, HTN, recurrent aspiration pneumonia who was admited for SOB and productive yellowish secretions. MACHINE BASTER was called by nurse due to Tachypnea. On MACHINE BASTER arrival patient was found unresponsive( as per nurse this is his mental status baseline) and in respiratory distress. Patient has a Tracheostomy tube, and is on a ventilator. A moderate amount of secretions from tach tube noted. A/Plan: Tachypnea Most likely secondary to Mucus plug, but we can not r/o Pain Patient is unresponsive to verbal or painful stimuli Suctioned of secretions from trach tube Changed ventilator machine CBC w/diff, CMP, ABG, troponin I x 1 Coagulation panel: PTT/PT/INR Chest x ray showed no significant changes from most recent one on 12/12/16 EKG: showed no significant changes from previous one Furosemide 60 mg IV once Acetaminophen susp 650 mg once by PEG tube ( patient has morphine allergy/ unknown reaction) Continue monitoring in telemetry unit <Gita Sawyer - Last Filed: 12/14/16 18:45> Attending/Attestation - Attestation I have personally seen and examined this patient.: Yes I have fully participated in the care of the patient.: Yes I have reviewed all pertinent clinical information, including history, physical exam and plan: Yes Notes (Text): 12/14/16 18:26 MACHINE BASTER Called bec of Tachypnea- Resp rate noted to be 50 Responded to the MACHINE BASTER with the residents A/P: Tachypnea likely sec to Vent Dysfunction - presence of thick mucus also a factor - Pt noted to be very tachypneic however Saturation was bell, BS stable except for sl tachycardia - was given IV Lasix , setting changed to 100% FiO2 - ABG, CXR stat - deep suctioning done and got thick mucus - noted decreased Tidal volume- no cuff leak noted , no signs of PTX- Ventilator changed and pt's symptoms improved. Dr Smith - pt's PMD notified of event , case discussed Also consulted Automotive Internet Sales Consultant Dr Arroyo to jennifer pt Will notify dr Stephens - pt's PMD of event
[2016-12-14 17:46] LABS: NEUTROPHIL 87 % (42-75); TOTAL CELLS COUNTED 100
[2016-12-14 17:47] LABS: LARGE PLATELETS PRESENT
--- NOTE | 2016-12-14 17:56 | CP.PCM.PN ---
Subjective - Date & Time of Evaluation Date of Evaluation: 12/14/16 Time of Evaluation: 17:53 - Subjective Subjective: Mr. Bellamy was seen and examined today at bedside after an ORACLE BUSINESS INTELLIGENCE DEVELOPER was called due to ventilator dysfunction. Currently, the patient is not responsive, but opens eyes to pain. His ABG showed good sats, PO2, PCO2 and normal pH. Neurologically , no significant improvement. Objective - Vital Signs/Intake and Output Vital Signs (last 24 hours): Temp Pulse Resp BP Pulse Ox 97.4 F L 108 H 38 H 125/85 100 12/14/16 17:47 12/14/16 17:47 12/14/16 17:47 12/14/16 17:47 12/14/16 16:12 Intake and Output: 12/14/16 12/14/16 06:59 18:59 Intake Total 1845 Output Total 600 Balance 1245 - Medications Medications: Current Medications Albuterol Sulfate (Albuterol 0.083% Inhal Mary (2.5 Mg/3 Ml) Ud) 2.5 mg INH RQ4 PRN PRN Reason: Shortness of Breath Last Admin: 11/23/16 03:48 Dose: 2.5 mg Albuterol/Ipratropium (Duoneb 3 Mg/0.5 Mg (3 Ml) Ud) 3 ml INH RQ6 [facility] Last Admin: 12/14/16 14:35 Dose: 3 ml Amantadine HCl (Amantadine 100 Mg Cap) 100 mg PO BID [facility] Last Admin: 12/14/16 16:48 Dose: 100 mg Amiodarone HCl (Cordarone) 200 mg PO DAILY [facility] Last Admin: 12/14/16 10:16 Dose: 200 mg Dimethicone (Proshield Plus Skin Protectant) 1 applic TOP BID [facility] Last Admin: 12/14/16 10:18 Dose: 1 applic Metronidazole (Flagyl 500mg/100ml Ns) 100 mls @ 100 mls/hr IVPB Q8 [facility] Last Admin: 12/14/16 17:39 Dose: 100 mls/hr Gentamicin Sulfate/Sodium Chloride (Gentamicin 60mg/50ml Ns) 60 mg in 50 mls @ 50 mls/hr IVPB Q8H [facility] Last Admin: 12/14/16 17:38 Dose: 50 mls/hr Methylphenidate HCl (Ritalin) 10 mg PO DAILY [facility] Last Admin: 12/14/16 10:17 Dose: 10 mg Ondansetron HCl (Zofran Odt) 4 mg PEG Q8 [facility] Last Admin: 11/24/16 16:40 Dose: 4 mg Vancomycin HCl (Vancocin (Oral/Rectal Use)) 125 mg PO Q8 [facility] Last Admin: 12/14/16 16:49 Dose: 125 mg - Labs Labs: 12/14/16 16:28 12/14/16 16:28 PT 14.9 SECONDS (9.6-11.2) H 12/08/16 04:20 INR 1.43 (0.92-1.08) H 12/08/16 04:20 APTT 33.9 SECONDS (23.3-32.5) H D 11/24/16 06:00 - Neurological Exam Additional comments: Neurologically unchanged. Assessment and Plan (1) Anoxic brain injury Assessment & Plan: May continue stimulants, although at this point a good response is less likely. Expectations should be discussed with family. Status: Acute
[2016-12-14 18:13] LABS: PARTIAL THROMBOPLASTIN TIME 31.7 SECONDS (23.3-32.5)
--- NOTE | 2016-12-14 21:34 | CP.PCM.PN ---
Subjective - Date & Time of Evaluation Date of Evaluation: 12/14/16 Time of Evaluation: 22:22 - Subjective Subjective: Above noted IMAGING SYSTEM ADMINISTRATOR 2 to mucus plug Opens eyes to deeep stimuli Objective - Vital Signs/Intake and Output Vital Signs (last 24 hours): Temp Pulse Resp BP Pulse Ox 97.3 F L 94 H 20 135/81 100 12/14/16 19:23 12/14/16 19:23 12/14/16 19:23 12/14/16 19:23 12/14/16 19:23 Intake and Output: 12/14/16 12/15/16 18:59 06:59 Intake Total 1090 Output Total 280 Balance 810 - Medications Medications: Current Medications Albuterol Sulfate (Albuterol 0.083% Inhal Mary (2.5 Mg/3 Ml) Ud) 2.5 mg INH RQ4 PRN PRN Reason: Shortness of Breath Last Admin: 11/23/16 03:48 Dose: 2.5 mg Albuterol/Ipratropium (Duoneb 3 Mg/0.5 Mg (3 Ml) Ud) 3 ml INH RQ6 [facility] Last Admin: 12/14/16 19:29 Dose: 3 ml Amantadine HCl (Amantadine 100 Mg Cap) 100 mg PO BID [facility] Last Admin: 12/14/16 16:48 Dose: 100 mg Amiodarone HCl (Cordarone) 200 mg PO DAILY [facility] Last Admin: 12/14/16 10:16 Dose: 200 mg Dimethicone (Proshield Plus Skin Protectant) 1 applic TOP BID [facility] Last Admin: 12/14/16 20:32 Dose: Not Given Metronidazole (Flagyl 500mg/100ml Ns) 100 mls @ 100 mls/hr IVPB Q8 [facility] Last Admin: 12/14/16 17:39 Dose: 100 mls/hr Gentamicin Sulfate/Sodium Chloride (Gentamicin 60mg/50ml Ns) 60 mg in 50 mls @ 50 mls/hr IVPB Q8H [facility] Last Admin: 12/14/16 17:38 Dose: 50 mls/hr Methylphenidate HCl (Ritalin) 10 mg PO DAILY [facility] Last Admin: 12/14/16 10:17 Dose: 10 mg Ondansetron HCl (Zofran Odt) 4 mg PEG Q8 [facility] Last Admin: 11/24/16 16:40 Dose: 4 mg Vancomycin HCl (Vancocin (Oral/Rectal Use)) 125 mg PO Q8 [facility] Last Admin: 12/14/16 16:49 Dose: 125 mg - Labs Labs: 12/14/16 16:28 12/14/16 16:28 PT 14.3 SECONDS (9.6-11.2) H 12/14/16 16:45 INR 1.38 (0.92-1.08) H 12/14/16 16:45 APTT 31.7 SECONDS (23.3-32.5) 12/14/16 16:45 Assessment and Plan - Assessment and Plan (Free Text) Assessment: IMAGING SYSTEM ADMINISTRATOR 2 to mucus plug S/P Acute Respiratory Failure Asystole Tracheostomy Aspiration?? HX COPD Klebsiella Pneumonia MDR Pulmonary ID Anoxic encephalopathy 2 to above Methyphenidate and amantidine Neuro note appreciated S/P Asystole 2 to Pulmonary dx (S/P V-fib/ V-tach 2 to pulmonary dx) A-fib CAD S/P CABG Amiodorone Cardiology SMITA/ CKD 2 to Sepsis acute ischemia ATN Improving Nephrology Anemia etiol? Chronic dx CKD + guaic Transfusion
[2016-12-15] MEDS: Albuterol-Ipratrop 3 mg / 0.5 (3 ml) UD INH SCH ×4 (01:02→20:11)
[2016-12-15] MEDS: metroNIDAZOLE 500mg/100ml NS 100 ML IVPB SCH ×3 (01:32→16:20)
[2016-12-15] MEDS: Vancomycin 500 mg (Oral/Rectal USE) PO SCH ×3 (01:33→16:14)
[2016-12-15] MEDS: Gentamicin 60mg/50ml NS 60 MG/50 ML BAG IVPB SCH ×3 (05:11→21:21)
[2016-12-15 08:05] LABS: ABG ALLEN TEST YES; ABG MECHANICAL RATE 12; ARTERIAL BLOOD GAS MODE PRVC/AC; ARTERIAL BLOOD GAS O2 CAPACITY 14.5 mL/dL (16-24); ARTERIAL BLOOD GAS O2 CONTENT 14.5 ML/dL (15-23); ARTERIAL BLOOD GAS PH 7.46 (7.35-7.45); ARTERIAL BLOOD GAS PO2 526 mm/Hg (80-100); ARTERIAL BLOOD HGB O2 SAT 97.4 % (95.0-98.0); CARBOXYHEMOGLOBIN 0.8 % (0.5-1.5); METHEMOGLOBIN 1.8 % (0.0-3.0)
--- NOTE | 2016-12-15 08:27 | RAD ---
PROCEDURE: CHEST RADIOGRAPH, 1 VIEW HISTORY: SOB COMPARISON: 12/14/2016 FINDINGS: LUNGS: Hazy opacity in both lung bases. Increased pulmonary vascular congestion. PLEURA: Bilateral pleural effusions.Biapical pleural parenchymal thickening noted. CARDIOVASCULAR: Enlarged cardiomediastinal silhouette. OSSEOUS STRUCTURES: The osseous structures demonstrate degenerative changes. VISUALIZED UPPER ABDOMEN: Upper abdomen is suboptimally evaluated. OTHER FINDINGS: Midline sternotomy wires and surgical clips along the left heart border noted. Tracheostomy in place. IMPRESSION: Hazy opacity in both lung bases which represents small bilateral pleural effusions with associated compressive atelectasis and/or pneumonia. Other findings as above.
[2016-12-15 08:56] LABS: BASO % 0.3 % (0.0-2.0); EOS % 0.2 % (0.0-4.0); HEMATOCRIT 27.7 % (35.0-51.0); LYMPH # 0.5 K/uL (1.0-4.3); LYMPH % 5.9 % (20.0-40.0); MEAN CELL VOLUME 89.5 fl (80.0-94.0); MEAN CORPUSCULAR HEMOGLOBIN 29.2 pg (27.0-31.0); MEAN CORPUSCULAR HGB CONC 32.7 g/dL (33.0-37.0); MEAN PLATELET VOLUME 10.1 fl (7.2-11.7); MONO # 0.7 K/uL (0.0-0.8); NEUT # 7.1 K/uL (1.8-7.0); NEUT % 85.6 % (50.0-75.0); RED CELL DISTRIBUTION WIDTH 16.6 % (11.5-14.5); WHITE BLOOD COUNT 8.3 K/uL (4.8-10.8)
--- NOTE | 2016-12-15 08:58 | PCM.RRTMUL ---
<Kvng Harris - Last Filed: 12/15/16 14:15> SOLID WASTE DIVISION SUPERVISOR Nurse Assessment - Situation SOLID WASTE DIVISION SUPERVISOR Responder Arrival Time:: 07:45 Location:: [address] [place] [address] Room Number:: 415 SOLID WASTE DIVISION SUPERVISOR Reason for Call: Respiratory Distress SOLID WASTE DIVISION SUPERVISOR Called By: RN - IV IV Inserted during SOLID WASTE DIVISION SUPERVISOR?: No - Respiratory Oxygen Delivery Method:: Trach Collar Received Nebulizer Treatments:: No Was the Patient Ventilated with Bag/Mask 100% O2?: Yes Secretions Suctioned?: Yes Was the Patient Intubated?: No Was the Patient Placed on a Ventilator?: Yes - Ventilator Settings Mode:: PRVC/AC Ventilator Respiratory Rate Setting:: 12 Ventilator Tidal Volume Setting:: 450 PEEP/CPAP (cm H2O):: 0 Pressure Support:: 0 SAO2 %:: 91 FIO2 (% Oxygen):: 35 - Medication Medications Administered During SOLID WASTE DIVISION SUPERVISOR :: Lasix - Diagnostic Test Ordered EKG:: Yes Chest X-Ray:: Yes CT Scan:: No - Stat Labs Ordered SOLID WASTE DIVISION SUPERVISOR Stat Labs Ordered:: CBC, BMP, LACTIC ACID, ABG CPR started during SOLID WASTE DIVISION SUPERVISOR?: No - Vital Signs Blood Pressure:: 158/90 Pulse Rate:: 101 Respiratory Rate:: 33 Temperature:: 97.9 F Oxygen Saturation:: 100 - [place] Coma Scale Coma Scale Eye Opening:: To pain Coma Scale Motor:: None Coma Scale Verbal:: No response Coma Scale Total:: 4 - Time SOLID WASTE DIVISION SUPERVISOR Ended Time SOLID WASTE DIVISION SUPERVISOR Ended:: 08:20 - Vital Signs at end of SOLID WASTE DIVISION SUPERVISOR Blood Pressure:: 164/94 Pulse Rate:: 109 Respiratory Rate:: 31 Temperature:: 97.9 F O2 Sat by Pulse Oximetry:: 100 - Recommendations 5) SOLID WASTE DIVISION SUPERVISOR Level of Care Recommendations: Remain in current setting I.Reason for SOLID WASTE DIVISION SUPERVISOR - A) Acute Change in Patient: (Select all that apply): Acute change in respiratory rate less than 8 or greater than 28 - A) Initial Vital Signs: Blood Pressure: 68/46 Respiratory Rate: 28 - B) Neurological Status (Select all that apply): Lethargic - C) Respiratory Oxygen Delivery Method: Trach Collar @% - Constitutional Appears: In Acute Distress, Chronically Ill - Respiratory Exam Respiratory Exam: Decreased Breath Sounds (L/Lung) - Cardiovascular Exam Cardiovascular Exam: Irregular Rhythm. absent: Gallop - Neurological Exam Neurological Exam: absent: Alert, Oriented x3 Plan - A. End of SOLID WASTE DIVISION SUPERVISOR Vital Signs: Blood Pressure: 158/92 Pulse Rate: 107 Respiratory Rate: 22 O2 Sat by Pulse Oximetry: 100 - B. Assessment of Findings&Treatment Plan 71 yo M with PMHx of A fib, COPD, CHF, CAD, DM type 2, HTN, aspiration pneumonia admitted for SOB. SOLID WASTE DIVISION SUPERVISOR was called by nurse due to Tachypnea. On SOLID WASTE DIVISION SUPERVISOR arrival patient was found unresponsive( as per nurse this is his mental status baseline) and in respiratory distress. Patient has a Tracheostomy tube, and is on a ventilator. A moderate amount of secretions from trach tube noted although they were found to be very thick A&P Tachypnea Most likely secondary to Mucus plug Patient is unresponsive Suctioned of secretions from trach tube: very thick CBC w/diff, CMP, ABG Chest x ray new infiltrates seems to be present EKG: showed no significant changes from previous one Furosemide 40 mg IV once Continue monitoring in telemetry unit <Gita Sawyer - Last Filed: 12/15/16 17:01> Attending/Attestation - Attestation I have personally seen and examined this patient.: Yes I have fully participated in the care of the patient.: Yes I have reviewed all pertinent clinical information, including history, physical exam and plan: Yes Notes (Text): 12/15/16 17:00 Pt seen and examined with the residents. Case discussed , agree with above Event Note. Dr Kat Lord notified of event
[2016-12-15 09:01] LABS: ALKALINE PHOSPHATASE 175 U/L (38-126); ALT/SGPT 32 U/L (21-72); AST/SGOT 28 U/L (17-59); BILIRUBIN,TOTAL 0.4 mg/dl (0.2-1.3); BLOOD UREA NITROGEN 38 mg/dl (9-20); CARBON DIOXIDE 21 mmol/L (22-30); CHLORIDE 107 mmol/L (98-107); GFR AFRICAN-AMERICAN > 60; GLUCOSE,RANDOM 121 mg/dL (75-110); SODIUM 136 mmol/l (132-148); TOTAL PROTEIN 4.9 G/DL (6.3-8.2)
--- NOTE | 2016-12-15 09:15 | CP.PCM.PN ---
Subjective - Date & Time of Evaluation Date of Evaluation: 12/15/16 Time of Evaluation: 09:06 - Subjective Subjective: Interim events noted. 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 Respiratory therapist note states 'thick yellow secretions'. ABG reviewed, super-oxygenation with near normal CO2 and pH. Suctioned now with small amount of garcia secretions obtained, RR 12/24, PAP 20cm, SpO2 100%, FiO2 .35, Vt .45L, PEEP 5cm. Today's CXR shows increasing infiltrate in the RLL, and possibly ARTHUR as well. Neurologically remains about the same with open eyes, roving eye movements, not following any commands. Lying in bed HOB at 30 degrees elevation. No dullness on percussion of the anterior thorax. Breath sounds are diminished but present bilaterally. Sonorous rhonchi in dependant zones bilaterally, no wheezes or bronchial breath sounds. Tracheostomy site intact with mucoid secretions. Heart sounds are distant, rate in 90's. Abdomen is soft, PEG tube intact, +BS. No cyanosis, trace dependant edema remains. Ventilator settings checked; PEEP added back on. Needs frequent tracheal suctioning. Continue present antibiotic regimen for dual pathogens on the last sputum culture. Prognosis for recovery is very poor. LTAC vs LTP. Objective - Vital Signs/Intake and Output Vital Signs (last 24 hours): Temp Pulse Resp BP Pulse Ox 97.9 F 101 H 33 H 158/90 H 100 12/15/16 08:58 12/15/16 08:58 12/15/16 08:58 12/15/16 08:58 12/15/16 05:10 Intake and Output: 12/14/16 12/15/16 23:59 11:59 Intake Total 1800 Output Total 1030 Balance 770 - Medications Medications: Current Medications Albuterol Sulfate (Albuterol 0.083% Inhal Mary (2.5 Mg/3 Ml) Ud) 2.5 mg INH RQ4 PRN PRN Reason: Shortness of Breath Last Admin: 11/23/16 03:48 Dose: 2.5 mg Albuterol/Ipratropium (Duoneb 3 Mg/0.5 Mg (3 Ml) Ud) 3 ml INH RQ6 [facility] Last Admin: 12/15/16 01:02 Dose: 3 ml Amantadine HCl (Amantadine 100 Mg Cap) 100 mg PO BID [facility] Last Admin: 12/14/16 16:48 Dose: 100 mg Amiodarone HCl (Cordarone) 200 mg PO DAILY [facility] Last Admin: 12/14/16 10:16 Dose: 200 mg Dimethicone (Proshield Plus Skin Protectant) 1 applic TOP BID [facility] Last Admin: 12/14/16 20:32 Dose: Not Given Metronidazole (Flagyl 500mg/100ml Ns) 100 mls @ 100 mls/hr IVPB Q8 [facility] Last Admin: 12/15/16 01:32 Dose: 100 mls/hr Gentamicin Sulfate/Sodium Chloride (Gentamicin 60mg/50ml Ns) 60 mg in 50 mls @ 50 mls/hr IVPB Q8H [facility] Last Admin: 12/15/16 05:11 Dose: 50 mls/hr Methylphenidate HCl (Ritalin) 10 mg PO DAILY [facility] Last Admin: 12/14/16 10:17 Dose: 10 mg Ondansetron HCl (Zofran Odt) 4 mg PEG Q8 [facility] Last Admin: 11/24/16 16:40 Dose: 4 mg Vancomycin HCl (Vancocin (Oral/Rectal Use)) 125 mg PO Q8 [facility] Last Admin: 12/15/16 01:33 Dose: 125 mg - Labs Labs: 12/15/16 08:30 12/14/16 16:28 PT 14.3 SECONDS (9.6-11.2) H 12/14/16 16:45 INR 1.38 (0.92-1.08) H 12/14/16 16:45 APTT 31.7 SECONDS (23.3-32.5) 12/14/16 16:45 Assessment and Plan (1) Respiratory failure with hypercapnia Status: Inactive (2) On mechanically assisted ventilation Status: Chronic (3) Pneumonia Status: Acute (4) COPD exacerbation Status: Inactive (5) Tracheostomy in place Status: Acute
[2016-12-15] MEDS: Proshield Plus GEL TOP SCH ×2 (09:52→16:20)
--- NOTE | 2016-12-15 10:54 | CARD ---
APPROVED REPORT EKG Measurement Heart [id number] <Conclusion> Sinus tachycardia Incomplete left bundle branch block ST & T wave abnormality, consider lateral ischemia Abnormal ECG
--- NOTE | 2016-12-15 11:49 | PN ---
DATE: 12/15/2016 ENDO FOLLOWUP NOTE ROOM: 415. SUBJECTIVE: This is a 71-year-old male with recent ventilator-dependent respiratory failure, current ly on a tracheostomy collar and now being followed closely for metabolic management. He had the init ial acute respiratory failure with underlying recurrent pneumonia and exacerbation of COPD, and has n ow been taken off IV steroid therapy as noted. His glycemic levels have remained near optimal at this time and have ranged from 97-116 and 125 mg/dL . LABORATORY DATA: His latest chemistry showed a BUN of 38, sodium 136, potassium 4.0, chloride 107, C O2 of 21, glucose 121, and creatinine 1.4. There is no indication at this time for the initiation of basal insulin such as Levemir therapy as no anjali. We will continue the low-dose correction scale using regular insulin as ordered. We will follo w and advise accordingly. Anabella Sebastian MD cc: [id number] TT: 12/15/2016 11:48:38 Confirmation # [id number] Dictation # [id number] jn
--- NOTE | 2016-12-15 13:57 | CP.PCM.PN ---
Subjective - Date & Time of Evaluation Date of Evaluation: 12/08/16 Time of Evaluation: 01:00 - Subjective Subjective: Unresposive. Trach in place Objective - Vital Signs/Intake and Output Vital Signs (last 24 hours): Temp Pulse Resp BP Pulse Ox 98.5 F 97 H 18 142/92 H 100 12/15/16 12:42 12/15/16 12:42 12/15/16 12:42 12/15/16 12:42 12/15/16 12:42 Intake and Output: 12/15/16 12/15/16 06:59 18:59 Intake Total 710 Output Total 750 Balance -40 - Medications Medications: Current Medications Albuterol Sulfate (Albuterol 0.083% Inhal Mary (2.5 Mg/3 Ml) Ud) 2.5 mg INH RQ4 PRN PRN Reason: Shortness of Breath Last Admin: 11/23/16 03:48 Dose: 2.5 mg Albuterol/Ipratropium (Duoneb 3 Mg/0.5 Mg (3 Ml) Ud) 3 ml INH RQ6 [facility] Last Admin: 12/15/16 01:02 Dose: 3 ml Amantadine HCl (Amantadine 100 Mg Cap) 100 mg PO BID [facility] Last Admin: 12/15/16 09:12 Dose: 100 mg Amiodarone HCl (Cordarone) 200 mg PO DAILY [facility] Last Admin: 12/15/16 09:12 Dose: 200 mg Dimethicone (Proshield Plus Skin Protectant) 1 applic TOP BID [facility] Last Admin: 12/15/16 09:52 Dose: 1 applic Metronidazole (Flagyl 500mg/100ml Ns) 100 mls @ 100 mls/hr IVPB Q8 [facility] Last Admin: 12/15/16 09:50 Dose: 100 mls/hr Gentamicin Sulfate/Sodium Chloride (Gentamicin 60mg/50ml Ns) 60 mg in 50 mls @ 50 mls/hr IVPB Q8H [facility] Last Admin: 12/15/16 13:06 Dose: 50 mls/hr Methylphenidate HCl (Ritalin) 10 mg PO DAILY [facility] Last Admin: 12/15/16 09:52 Dose: 10 mg Ondansetron HCl (Zofran Odt) 4 mg PEG Q8 [facility] Last Admin: 11/24/16 16:40 Dose: 4 mg Vancomycin HCl (Vancocin (Oral/Rectal Use)) 125 mg PO Q8 [facility] Last Admin: 12/15/16 09:15 Dose: 125 mg - Labs Labs: 12/15/16 08:30 12/15/16 08:30 PT 14.3 SECONDS (9.6-11.2) H 12/14/16 16:45 INR 1.38 (0.92-1.08) H 12/14/16 16:45 APTT 31.7 SECONDS (23.3-32.5) 12/14/16 16:45 - Respiratory Exam Additional comments: Lungs clear - Cardiovascular Exam Cardiovascular Exam: REGULAR RHYTHM - Extremities Exam Additional comments: Edema of upper extremities Assessment and Plan - Assessment and Plan (Free Text) Assessment: SMITA resolved K+ is controlled Respiratory failure Anoxic encephalopathy Plan: Continue to monitor renal function & K+ Continue current Mx
--- NOTE | 2016-12-15 14:09 | CP.PCM.PN ---
Subjective - Date & Time of Evaluation Date of Evaluation: 12/15/16 Time of Evaluation: 08:00 - Subjective Subjective: events noted thick yellow secretions mental status same on IV Genta will check trough level in am Objective - Vital Signs/Intake and Output Vital Signs (last 24 hours): Temp Pulse Resp BP Pulse Ox 97.9 F 101 H 28 H 68/46 L 100 12/15/16 14:05 12/15/16 14:05 12/15/16 14:05 12/15/16 14:05 12/15/16 12:42 Intake and Output: 12/15/16 12/15/16 06:59 18:59 Intake Total 710 Output Total 750 Balance -40 - Medications Medications: Current Medications Albuterol Sulfate (Albuterol 0.083% Inhal Mary (2.5 Mg/3 Ml) Ud) 2.5 mg INH RQ4 PRN PRN Reason: Shortness of Breath Last Admin: 11/23/16 03:48 Dose: 2.5 mg Albuterol/Ipratropium (Duoneb 3 Mg/0.5 Mg (3 Ml) Ud) 3 ml INH RQ6 [facility] Last Admin: 12/15/16 01:02 Dose: 3 ml Amantadine HCl (Amantadine 100 Mg Cap) 100 mg PO BID [facility] Last Admin: 12/15/16 09:12 Dose: 100 mg Amiodarone HCl (Cordarone) 200 mg PO DAILY [facility] Last Admin: 12/15/16 09:12 Dose: 200 mg Dimethicone (Proshield Plus Skin Protectant) 1 applic TOP BID [facility] Last Admin: 12/15/16 09:52 Dose: 1 applic Metronidazole (Flagyl 500mg/100ml Ns) 100 mls @ 100 mls/hr IVPB Q8 [facility] Last Admin: 12/15/16 09:50 Dose: 100 mls/hr Gentamicin Sulfate/Sodium Chloride (Gentamicin 60mg/50ml Ns) 60 mg in 50 mls @ 50 mls/hr IVPB Q8H [facility] Last Admin: 12/15/16 13:06 Dose: 50 mls/hr Methylphenidate HCl (Ritalin) 10 mg PO DAILY [facility] Last Admin: 12/15/16 09:52 Dose: 10 mg Ondansetron HCl (Zofran Odt) 4 mg PEG Q8 [facility] Last Admin: 11/24/16 16:40 Dose: 4 mg Vancomycin HCl (Vancocin (Oral/Rectal Use)) 125 mg PO Q8 [facility] Last Admin: 12/15/16 09:15 Dose: 125 mg - Labs Labs: 12/15/16 08:30 12/15/16 08:30 PT 14.3 SECONDS (9.6-11.2) H 12/14/16 16:45 INR 1.38 (0.92-1.08) H 12/14/16 16:45 APTT 31.7 SECONDS (23.3-32.5) 12/14/16 16:45 - Constitutional Appears: Cachectic - Head Exam Head Exam: NORMOCEPHALIC - Eye Exam Eye Exam: absent: Scleral icterus - ENT Exam ENT Exam: Mucous Membranes Dry - Neck Exam Neck Exam: absent: Lymphadenopathy - Respiratory Exam Respiratory Exam: Decreased Breath Sounds, Rhonchi - Cardiovascular Exam Cardiovascular Exam: REGULAR RHYTHM, +S1, +S2 - GI/Abdominal Exam GI & Abdominal Exam: Distended, Soft. absent: Tenderness - Rectal Exam Rectal Exam: Deferred - Exam Exam: NORMAL INSPECTION Assessment and Plan (1) COPD (chronic obstructive pulmonary disease) with acute bronchitis Status: Acute (2) Atrial fibrillation Status: Acute (3) CHF (congestive heart failure) Status: Acute (4) Dehydration Status: Acute (5) Moderate COPD (chronic obstructive pulmonary disease) Status: Acute (6) PAD (peripheral artery disease) Status: Acute (7) Pneumonia Status: Acute (8) COPD (chronic obstructive pulmonary disease) Status: Chronic (9) COPD exacerbation Status: Inactive
--- NOTE | 2016-12-15 19:55 | CP.PCM.PN ---
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 CXR infiltrates Objective - Vital Signs/Intake and Output Vital Signs (last 24 hours): Temp Pulse Resp BP Pulse Ox 97.9 F 85 18 147/84 100 12/15/16 16:38 12/15/16 16:38 12/15/16 16:38 12/15/16 16:38 12/15/16 16:38 Intake and Output: 12/15/16 12/16/16 18:59 06:59 Intake Total 750 Output Total 1750 Balance -1000 - Medications Medications: Current Medications Albuterol Sulfate (Albuterol 0.083% Inhal Mary (2.5 Mg/3 Ml) Ud) 2.5 mg INH RQ4 PRN PRN Reason: Shortness of Breath Last Admin: 11/23/16 03:48 Dose: 2.5 mg Albuterol/Ipratropium (Duoneb 3 Mg/0.5 Mg (3 Ml) Ud) 3 ml INH RQ6 [facility] Last Admin: 12/15/16 14:00 Dose: 3 ml Amantadine HCl (Amantadine 100 Mg Cap) 100 mg PO BID [facility] Last Admin: 12/15/16 16:14 Dose: 100 mg Amiodarone HCl (Cordarone) 200 mg PO DAILY [facility] Last Admin: 12/15/16 09:12 Dose: 200 mg Dimethicone (Proshield Plus Skin Protectant) 1 applic TOP BID [facility] Last Admin: 12/15/16 16:20 Dose: 1 applic Metronidazole (Flagyl 500mg/100ml Ns) 100 mls @ 100 mls/hr IVPB Q8 [facility] Last Admin: 12/15/16 16:20 Dose: 100 mls/hr Gentamicin Sulfate/Sodium Chloride (Gentamicin 60mg/50ml Ns) 60 mg in 50 mls @ 50 mls/hr IVPB Q12 [facility] Ondansetron HCl (Zofran Odt) 4 mg PEG Q8 [facility] Last Admin: 11/24/16 16:40 Dose: 4 mg Vancomycin HCl (Vancocin (Oral/Rectal Use)) 125 mg PO Q8 [facility] Last Admin: 12/15/16 16:14 Dose: 125 mg - Labs Labs: 12/15/16 08:30 12/15/16 08:30 PT 14.3 SECONDS (9.6-11.2) H 12/14/16 16:45 INR 1.38 (0.92-1.08) H 12/14/16 16:45 APTT 31.7 SECONDS (23.3-32.5) 12/14/16 16:45 - Respiratory Exam Respiratory Exam: NORMAL BREATHING PATTERN - Cardiovascular Exam Cardiovascular Exam: REGULAR RHYTHM - GI/Abdominal Exam GI & Abdominal Exam: Normal Bowel Sounds Assessment and Plan - Assessment and Plan (Free Text) 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 HX COPD Klebsiella Pneumonia MDR Pulmonary ID Anoxic encephalopathy 2 to above Methyphenidate and amantidine Neuro note appreciated S/P Asystole 2 to Pulmonary dx (S/P V-fib/ V-tach 2 to pulmonary dx) A-fib CAD S/P CABG Amiodorone Cardiology SMITA/ CKD 2 to Sepsis acute ischemia ATN Improving Nephrology Anemia etiol? Chronic dx CKD + guaic Transfusion
[2016-12-16] MEDS: metroNIDAZOLE 500mg/100ml NS 100 ML IVPB SCH ×3 (00:14→18:22)
[2016-12-16] MEDS: Vancomycin 500 mg (Oral/Rectal USE) PO SCH ×3 (00:15→18:22)
[2016-12-16] MEDS: Albuterol-Ipratrop 3 mg / 0.5 (3 ml) UD INH SCH ×5 (01:03→19:16)
[2016-12-16] MEDS: Albuterol 0.083% Inhal Sol (2.5 mg/3 mL) UD INH PRN (07:47)
[2016-12-16] MEDS: Gentamicin 60mg/50ml NS 60 MG/50 ML BAG IVPB SCH (08:41)
[2016-12-16] MEDS: Proshield Plus GEL TOP SCH ×2 (08:42→18:22)
--- NOTE | 2016-12-16 09:40 | CP.PCM.PN ---
Subjective - Date & Time of Evaluation Date of Evaluation: 12/16/16 Time of Evaluation: 09:36 - Subjective Subjective: Seen on rounds in telemetry. Had been BOX LINER'd a few times over the last few days because of erratic breathing pattern with tachypnea of 40BPM despite SpO2 98-100%. Remains tachycardic as well at 110-120BPM a fib. Moderate to large volume of garcia secretions suctioned this morning. Coarse rhonchi auscultated bilaterally this morning, cleared substantially with suctioning. Last CXR was from 2 days ago showing increased hazy/patchy infiltrates in lower lobes. WBC did spike on the to 12.5, but has dropped after gentamycin was added. There have been no febrile temp spikes. Vent changed to PRVC/SIMV this morniong. Repeat PCXR requested. Remains on Genta/Flagyl IVPB. Objective - Vital Signs/Intake and Output Vital Signs (last 24 hours): Temp Pulse Resp BP Pulse Ox 98.8 F 122 H 18 142/86 100 12/16/16 08:19 12/16/16 08:40 12/16/16 08:19 12/16/16 08:40 12/16/16 08:19 Intake and Output: 12/15/16 12/16/16 23:59 11:59 Intake Total 750 990 Output Total 1750 450 Balance -1000 540 - Medications Medications: Current Medications Albuterol Sulfate (Albuterol 0.083% Inhal Mary (2.5 Mg/3 Ml) Ud) 2.5 mg INH RQ4 PRN PRN Reason: Shortness of Breath Last Admin: 12/16/16 07:47 Dose: 2.5 mg Albuterol/Ipratropium (Duoneb 3 Mg/0.5 Mg (3 Ml) Ud) 3 ml INH RQ6 [facility] Last Admin: 12/16/16 08:39 Dose: Not Given Amantadine HCl (Amantadine 100 Mg Cap) 100 mg PO BID [facility] Last Admin: 12/16/16 08:39 Dose: 100 mg Amiodarone HCl (Cordarone) 200 mg PO DAILY [facility] Last Admin: 12/16/16 08:40 Dose: 200 mg Dimethicone (Proshield Plus Skin Protectant) 1 applic TOP BID [facility] Last Admin: 12/16/16 08:42 Dose: 1 applic Metronidazole (Flagyl 500mg/100ml Ns) 100 mls @ 100 mls/hr IVPB Q8 [facility] Last Admin: 12/16/16 08:41 Dose: 100 mls/hr Gentamicin Sulfate/Sodium Chloride (Gentamicin 60mg/50ml Ns) 60 mg in 50 mls @ 50 mls/hr IVPB Q12 [facility] Last Admin: 12/16/16 08:41 Dose: 50 mls/hr Ondansetron HCl (Zofran Odt) 4 mg PEG Q8 [facility] Last Admin: 11/24/16 16:40 Dose: 4 mg Vancomycin HCl (Vancocin (Oral/Rectal Use)) 125 mg PO Q8 [facility] Last Admin: 12/16/16 08:55 Dose: 125 mg - Labs Labs: 12/15/16 08:30 12/15/16 08:30 PT 14.3 SECONDS (9.6-11.2) H 12/14/16 16:45 INR 1.38 (0.92-1.08) H 12/14/16 16:45 APTT 31.7 SECONDS (23.3-32.5) 12/14/16 16:45 Assessment and Plan (1) Respiratory failure with hypercapnia Status: Inactive (2) On mechanically assisted ventilation Status: Chronic (3) Pneumonia Status: Acute (4) COPD exacerbation Status: Inactive (5) Tracheostomy in place Status: Acute
--- NOTE | 2016-12-16 11:25 | CP.PCM.PN ---
Subjective - Date & Time of Evaluation Date of Evaluation: 12/16/16 Time of Evaluation: 09:00 - Subjective Subjective: UNRESPONSIVE Objective - Vital Signs/Intake and Output Vital Signs (last 24 hours): Temp Pulse Resp BP Pulse Ox 98.8 F 122 H 18 142/86 100 12/16/16 08:19 12/16/16 08:40 12/16/16 08:19 12/16/16 08:40 12/16/16 08:19 Intake and Output: 12/16/16 12/16/16 06:59 18:59 Intake Total 990 Output Total 450 Balance 540 - Medications Medications: Current Medications Albuterol Sulfate (Albuterol 0.083% Inhal Mary (2.5 Mg/3 Ml) Ud) 2.5 mg INH RQ4 PRN PRN Reason: Shortness of Breath Last Admin: 12/16/16 07:47 Dose: 2.5 mg Albuterol/Ipratropium (Duoneb 3 Mg/0.5 Mg (3 Ml) Ud) 3 ml INH RQ6 [facility] Last Admin: 12/16/16 08:39 Dose: Not Given Amantadine HCl (Amantadine 100 Mg Cap) 100 mg PO BID [facility] Last Admin: 12/16/16 08:39 Dose: 100 mg Amiodarone HCl (Cordarone) 200 mg PO DAILY [facility] Last Admin: 12/16/16 08:40 Dose: 200 mg Dimethicone (Proshield Plus Skin Protectant) 1 applic TOP BID [facility] Last Admin: 12/16/16 08:42 Dose: 1 applic Metronidazole (Flagyl 500mg/100ml Ns) 100 mls @ 100 mls/hr IVPB Q8 [facility] Last Admin: 12/16/16 08:41 Dose: 100 mls/hr Gentamicin Sulfate/Sodium Chloride (Gentamicin 60mg/50ml Ns) 60 mg in 50 mls @ 50 mls/hr IVPB Q12 [facility] Last Admin: 12/16/16 08:41 Dose: 50 mls/hr Ondansetron HCl (Zofran Odt) 4 mg PEG Q8 [facility] Last Admin: 11/24/16 16:40 Dose: 4 mg Vancomycin HCl (Vancocin (Oral/Rectal Use)) 125 mg PO Q8 [facility] Last Admin: 12/16/16 08:55 Dose: 125 mg - Labs Labs: 12/15/16 08:30 12/15/16 08:30 PT 14.3 SECONDS (9.6-11.2) H 12/14/16 16:45 INR 1.38 (0.92-1.08) H 12/14/16 16:45 APTT 31.7 SECONDS (23.3-32.5) 12/14/16 16:45 - Respiratory Exam Respiratory Exam: Rhonchi - Cardiovascular Exam Cardiovascular Exam: Irregular Rhythm, +S1, +S2 - Additional Findings Additional findings: EKG MONIDTOR ATRIAL FIBRILLATION, R 90'S TRACH ASPRIATE CULTURES GROWING KLEBSIELLA AND PSEUDOMONAS RENT NOTES FROM PULMONARY, INTENSIVISTS AND NEPHROLOGY REVIEWED Assessment and Plan - Assessment and Plan (Free Text) Assessment: COPD AND RESPIRATORY FAILURE PNEUMONIA CAD ATRIAL FIBRILLATION Plan: CONTINUE AMIODARONE, METOPROLOL AND ANTIBIOTICS FOR LTC OR LTAC
--- NOTE | 2016-12-16 14:45 | CP.PCM.PN ---
Subjective - Date & Time of Evaluation Date of Evaluation: 12/16/16 Time of Evaluation: 22:22 - Subjective Subjective: Above noted Increased secretions Objective - Vital Signs/Intake and Output Vital Signs (last 24 hours): Temp Pulse Resp BP Pulse Ox 98.5 F 114 H 18 131/78 100 12/16/16 12:21 12/16/16 13:31 12/16/16 12:21 12/16/16 13:31 12/16/16 12:21 Intake and Output: 12/16/16 12/16/16 06:59 18:59 Intake Total 990 Output Total 450 Balance 540 - Medications Medications: Current Medications Albuterol Sulfate (Albuterol 0.083% Inhal Mary (2.5 Mg/3 Ml) Ud) 2.5 mg INH RQ4 PRN PRN Reason: Shortness of Breath Last Admin: 12/16/16 07:47 Dose: 2.5 mg Albuterol/Ipratropium (Duoneb 3 Mg/0.5 Mg (3 Ml) Ud) 3 ml INH RQ6 [facility] Last Admin: 12/16/16 13:24 Dose: 3 ml Amantadine HCl (Amantadine 100 Mg Cap) 100 mg PO BID [facility] Last Admin: 12/16/16 08:39 Dose: 100 mg Amiodarone HCl (Cordarone) 200 mg PO DAILY [facility] Last Admin: 12/16/16 08:40 Dose: 200 mg Dimethicone (Proshield Plus Skin Protectant) 1 applic TOP BID [facility] Last Admin: 12/16/16 08:42 Dose: 1 applic Metronidazole (Flagyl 500mg/100ml Ns) 100 mls @ 100 mls/hr IVPB Q8 [facility] Last Admin: 12/16/16 08:41 Dose: 100 mls/hr Gentamicin Sulfate/Sodium Chloride (Gentamicin 60mg/50ml Ns) 60 mg in 50 mls @ 50 mls/hr IVPB Q12 [facility] Last Admin: 12/16/16 08:41 Dose: 50 mls/hr Metoprolol Tartrate (Lopressor) 25 mg PO Q12 [facility] Last Admin: 12/16/16 13:31 Dose: 25 mg Ondansetron HCl (Zofran Odt) 4 mg PEG Q8 [facility] Last Admin: 11/24/16 16:40 Dose: 4 mg Vancomycin HCl (Vancocin (Oral/Rectal Use)) 125 mg PO Q8 [facility] Last Admin: 12/16/16 08:55 Dose: 125 mg - Labs Labs: 12/15/16 08:30 12/15/16 08:30 PT 14.3 SECONDS (9.6-11.2) H 12/14/16 16:45 INR 1.38 (0.92-1.08) H 12/14/16 16:45 APTT 31.7 SECONDS (23.3-32.5) 12/14/16 16:45 - Respiratory Exam Respiratory Exam: NORMAL BREATHING PATTERN - Cardiovascular Exam Cardiovascular Exam: Irregular Rhythm, REGULAR RHYTHM - GI/Abdominal Exam GI & Abdominal Exam: Normal Bowel Sounds Assessment and Plan - Assessment and Plan (Free Text) 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 HX COPD Klebsiella Pneumonia MDR Pulmonary ID Anoxic encephalopathy 2 to above Methyphenidate and amantidine Neuro note appreciated S/P Asystole 2 to Pulmonary dx (S/P V-fib/ V-tach 2 to pulmonary dx) A-fib CAD S/P CABG Amiodorone Cardiology SMITA/ CKD 2 to Sepsis acute ischemia ATN Improving Nephrology Anemia etiol? Chronic dx CKD + guaic Transfusion
--- NOTE | 2016-12-16 15:04 | PN ---
DATE: 12/16/2016 ROOM: 415. SUBJECTIVE: This is a 71-year-old male with recent acute respiratory failure, currently ventilator d ependent, on a tracheostomy collar, and is now also being followed closely for metabolic management. His glycemic levels are fluctuating, but much improved at this time and the latest glucose levels lopes ve ranged from 97-121 and 125 mg/dL. His latest chemistries include a BUN of 38, sodium 136, potassi um 4.0, chloride 107, CO2 21, glucose 121, and creatinine 1.4. So, at this time, we will continue th e same low-dose correction scale using regular insulin as ordered. No indication at this time for an y kind of basal insulin therapy to be given and initiated. We will obtain serial chemistries and sup plement accordingly as needed. We will follow. Anabella Sebastian MD cc: [id number] TT: 12/16/2016 15:04:04 Confirmation # [id number] Dictation # [id number] brandon
[2016-12-17] MEDS: metroNIDAZOLE 500mg/100ml NS 100 ML IVPB SCH ×3 (00:41→16:11)
[2016-12-17] MEDS: Vancomycin 500 mg (Oral/Rectal USE) PO SCH ×3 (00:41→16:12)
[2016-12-17] MEDS: Albuterol 0.083% Inhal Sol (2.5 mg/3 mL) UD INH PRN (01:06)
[2016-12-17] MEDS: Albuterol-Ipratrop 3 mg / 0.5 (3 ml) UD INH SCH ×3 (07:38→19:33)
[2016-12-17] MEDS: Proshield Plus GEL TOP SCH ×2 (08:30→19:13)
--- NOTE | 2016-12-17 09:43 | CP.PCM.PN ---
Subjective - Date & Time of Evaluation Date of Evaluation: 12/17/16 Time of Evaluation: 09:38 - Subjective Subjective: Interim events reviewed, patient seen on morning rounds and telemetry. Appears clinically unchanged compared to prior day. Remains unresponsive to verbal stimuli and has minimal withdrawal to noxious stimuli. Secretions suctioned from tracheostomy were decreased in quantity compared to previous days, but continued to have a garcia purulent appearance. Respiratory rate remains between 26 and 30 breaths per minute but are not labored. Oxygenation is good at 97% and heart rate remains around 100 bpm. He has remained afebrile. He continues to receive parenteral gentamicin and metronidazole as well as oral vancomycin. No dullness on percussion of the anterior thorax. No subcutaneous emphysema. Breath sounds are present bilaterally although diminished in the dependent lung zones. Scattered sonorous rhonchi are appreciated bilaterally with few dependent medium rales. No audible bronchial breathing or wheezing. Dependent edema is still present although decreased in quantity. No cyanosis is noted. I will gladly participate in any prognosis meeting which is being tentatively planned with medical specialists on his case as well as family members. Prognosis, in my opinion, remains extremely poor for recovery of mental status, and he will most probably succumb to pneumonia/sepsis or cardiac arrhythmia at some point in the near future. Objective - Vital Signs/Intake and Output Vital Signs (last 24 hours): Temp Pulse Resp BP Pulse Ox 98.4 F 104 H 18 144/83 100 12/17/16 08:05 12/17/16 08:26 12/17/16 08:05 12/17/16 08:26 12/17/16 08:05 Intake and Output: 12/16/16 12/17/16 23:59 11:59 Intake Total 1390 Output Total 450 Balance 940 - Medications Medications: Current Medications Albuterol Sulfate (Albuterol 0.083% Inhal Mary (2.5 Mg/3 Ml) Ud) 2.5 mg INH RQ4 PRN PRN Reason: Shortness of Breath Last Admin: 12/17/16 01:06 Dose: 2.5 mg Albuterol/Ipratropium (Duoneb 3 Mg/0.5 Mg (3 Ml) Ud) 3 ml INH RQ6 [facility] Last Admin: 12/17/16 07:38 Dose: 3 ml Amantadine HCl (Amantadine 100 Mg Cap) 100 mg PO BID [facility] Last Admin: 12/17/16 08:23 Dose: 100 mg Amiodarone HCl (Cordarone) 200 mg PO DAILY [facility] Last Admin: 12/17/16 08:23 Dose: 200 mg Dimethicone (Proshield Plus Skin Protectant) 1 applic TOP BID [facility] Last Admin: 12/17/16 08:30 Dose: 1 applic Metronidazole (Flagyl 500mg/100ml Ns) 100 mls @ 100 mls/hr IVPB Q8 [facility] Last Admin: 12/17/16 08:22 Dose: 100 mls/hr Gentamicin Sulfate/Sodium Chloride (Gentamicin 60mg/50ml Ns) 60 mg in 50 mls @ 50 mls/hr IVPB Q12 [facility] Last Admin: 12/16/16 08:41 Dose: 50 mls/hr Methylphenidate HCl (Ritalin) 10 mg PEG DAILY [facility] Metoprolol Tartrate (Lopressor) 25 mg PO Q12 [facility] Last Admin: 12/17/16 08:26 Dose: 25 mg Ondansetron HCl (Zofran Odt) 4 mg PEG Q8 [facility] Last Admin: 11/24/16 16:40 Dose: 4 mg Vancomycin HCl (Vancocin (Oral/Rectal Use)) 125 mg PO Q8 [facility] Last Admin: 12/17/16 08:27 Dose: 125 mg - Labs Labs: 12/15/16 08:30 12/15/16 08:30 PT 14.3 SECONDS (9.6-11.2) H 12/14/16 16:45 INR 1.38 (0.92-1.08) H 12/14/16 16:45 APTT 31.7 SECONDS (23.3-32.5) 12/14/16 16:45 Assessment and Plan (1) Respiratory failure with hypercapnia Status: Inactive (2) On mechanically assisted ventilation Status: Chronic (3) Pneumonia Status: Acute (4) COPD exacerbation Status: Inactive (5) Tracheostomy in place Status: Acute
--- NOTE | 2016-12-17 10:53 | CP.PCM.PN ---
Subjective - Date & Time of Evaluation Date of Evaluation: 12/17/16 Time of Evaluation: 10:00 - Subjective Subjective: UNRESPONSIVE Objective - Vital Signs/Intake and Output Vital Signs (last 24 hours): Temp Pulse Resp BP Pulse Ox 98.4 F 104 H 18 144/83 100 12/17/16 08:05 12/17/16 08:26 12/17/16 08:05 12/17/16 08:26 12/17/16 08:05 - Medications Medications: Current Medications Albuterol Sulfate (Albuterol 0.083% Inhal Mary (2.5 Mg/3 Ml) Ud) 2.5 mg INH RQ4 PRN PRN Reason: Shortness of Breath Last Admin: 12/17/16 01:06 Dose: 2.5 mg Albuterol/Ipratropium (Duoneb 3 Mg/0.5 Mg (3 Ml) Ud) 3 ml INH RQ6 [facility] Last Admin: 12/17/16 07:38 Dose: 3 ml Amantadine HCl (Amantadine 100 Mg Cap) 100 mg PO BID [facility] Last Admin: 12/17/16 08:23 Dose: 100 mg Amiodarone HCl (Cordarone) 200 mg PO DAILY [facility] Last Admin: 12/17/16 08:23 Dose: 200 mg Dimethicone (Proshield Plus Skin Protectant) 1 applic TOP BID [facility] Last Admin: 12/17/16 08:30 Dose: 1 applic Metronidazole (Flagyl 500mg/100ml Ns) 100 mls @ 100 mls/hr IVPB Q8 [facility] Last Admin: 12/17/16 08:22 Dose: 100 mls/hr Gentamicin Sulfate/Sodium Chloride (Gentamicin 60mg/50ml Ns) 60 mg in 50 mls @ 50 mls/hr IVPB Q12 [facility] Last Admin: 12/16/16 08:41 Dose: 50 mls/hr Methylphenidate HCl (Ritalin) 10 mg PEG DAILY [facility] Metoprolol Tartrate (Lopressor) 25 mg PO Q12 [facility] Last Admin: 12/17/16 08:26 Dose: 25 mg Ondansetron HCl (Zofran Odt) 4 mg PEG Q8 [facility] Last Admin: 11/24/16 16:40 Dose: 4 mg Vancomycin HCl (Vancocin (Oral/Rectal Use)) 125 mg PO Q8 [facility] Last Admin: 12/17/16 08:27 Dose: 125 mg - Labs Labs: 12/15/16 08:30 12/15/16 08:30 PT 14.3 SECONDS (9.6-11.2) H 12/14/16 16:45 INR 1.38 (0.92-1.08) H 12/14/16 16:45 APTT 31.7 SECONDS (23.3-32.5) 12/14/16 16:45 - Respiratory Exam Respiratory Exam: Rales, Rhonchi - Cardiovascular Exam Cardiovascular Exam: Irregular Rhythm, +S1, +S2 - Additional Findings 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
--- NOTE | 2016-12-17 15:05 | CP.PCM.PN ---
Subjective - Date & Time of Evaluation Date of Evaluation: 12/17/16 Time of Evaluation: 09:00 - Subjective Subjective: EVENTS NOTED IV GENTA ADJUSTED POOR PROGNOSIS Objective - Vital Signs/Intake and Output Vital Signs (last 24 hours): Temp Pulse Resp BP Pulse Ox 98.2 F 95 H 18 132/95 H 100 12/17/16 14:18 12/17/16 14:18 12/17/16 14:18 12/17/16 14:18 12/17/16 14:18 - Medications Medications: Current Medications Albuterol Sulfate (Albuterol 0.083% Inhal Mary (2.5 Mg/3 Ml) Ud) 2.5 mg INH RQ4 PRN PRN Reason: Shortness of Breath Last Admin: 12/17/16 01:06 Dose: 2.5 mg Albuterol/Ipratropium (Duoneb 3 Mg/0.5 Mg (3 Ml) Ud) 3 ml INH RQ6 [facility] Last Admin: 12/17/16 13:44 Dose: 3 ml Amantadine HCl (Amantadine 100 Mg Cap) 100 mg PO BID [facility] Last Admin: 12/17/16 08:23 Dose: 100 mg Amiodarone HCl (Cordarone) 200 mg PO DAILY [facility] Last Admin: 12/17/16 08:23 Dose: 200 mg Dimethicone (Proshield Plus Skin Protectant) 1 applic TOP BID [facility] Last Admin: 12/17/16 08:30 Dose: 1 applic Metronidazole (Flagyl 500mg/100ml Ns) 100 mls @ 100 mls/hr IVPB Q8 [facility] Last Admin: 12/17/16 08:22 Dose: 100 mls/hr Gentamicin Sulfate/Sodium Chloride (Gentamicin 60mg/50ml Ns) 60 mg in 50 mls @ 50 mls/hr IVPB Q12 [facility] Last Admin: 12/16/16 08:41 Dose: 50 mls/hr Methylphenidate HCl (Ritalin) 10 mg PEG DAILY [facility] Last Admin: 12/17/16 12:21 Dose: 10 mg Metoprolol Tartrate (Lopressor) 25 mg PO Q12 [facility] Last Admin: 12/17/16 08:26 Dose: 25 mg Ondansetron HCl (Zofran Odt) 4 mg PEG Q8 [facility] Last Admin: 11/24/16 16:40 Dose: 4 mg Vancomycin HCl (Vancocin (Oral/Rectal Use)) 125 mg PO Q8 [facility] Last Admin: 12/17/16 08:27 Dose: 125 mg - Labs Labs: 12/15/16 08:30 12/15/16 08:30 PT 14.3 SECONDS (9.6-11.2) H 12/14/16 16:45 INR 1.38 (0.92-1.08) H 12/14/16 16:45 APTT 31.7 SECONDS (23.3-32.5) 12/14/16 16:45 - Constitutional Appears: Confused, Cachectic, Chronically Ill - Head Exam Head Exam: NORMOCEPHALIC - Eye Exam Eye Exam: absent: Scleral icterus - ENT Exam ENT Exam: Mucous Membranes Dry - Neck Exam Neck Exam: absent: Lymphadenopathy - Respiratory Exam Respiratory Exam: Decreased Breath Sounds - Cardiovascular Exam Cardiovascular Exam: REGULAR RHYTHM - GI/Abdominal Exam GI & Abdominal Exam: Distended, Soft - Rectal Exam Rectal Exam: Deferred Assessment and Plan (1) COPD (chronic obstructive pulmonary disease) with acute bronchitis Status: Acute (2) Atrial fibrillation Status: Acute (3) CHF (congestive heart failure) Status: Acute (4) Dehydration Status: Acute (5) Moderate COPD (chronic obstructive pulmonary disease) Status: Acute (6) PAD (peripheral artery disease) Status: Acute (7) Pneumonia Status: Acute (8) COPD (chronic obstructive pulmonary disease) Status: Chronic (9) COPD exacerbation Status: Inactive
--- NOTE | 2016-12-17 16:09 | PN ---
DATE: 12/17/2016 ROOM: 415. This is a 71-year-old male with recent uncontrolled type 2 insulin-requiring diabetes, now being foll owed closely for metabolic management. He has since then been taken off all insulin therapy and also because he has been taken off IV steroids as noted and given. His glycemic levels have remained near optimal at this time and have ranged from 97-121 mg/dL. The l atest chemistry showed a BUN of 38, sodium 136, potassium 4.0, chloride 107, CO2 21, glucose 121, and creatinine 1.4. So, at this time, will continue the present medical management and obtain serial chemistries and supp lement accordingly as needed. Will follow and advise accordingly. Anabella Sebastian MD cc: [id number] TT: 12/17/2016 16:09:04 Confirmation # [id number] Dictation # [id number]
[2016-12-18] MEDS: Albuterol-Ipratrop 3 mg / 0.5 (3 ml) UD INH SCH ×3 (01:03→13:44)
[2016-12-18] MEDS: metroNIDAZOLE 500mg/100ml NS 100 ML IVPB SCH ×3 (02:08→16:32)
[2016-12-18] MEDS: Vancomycin 500 mg (Oral/Rectal USE) PO SCH ×3 (02:12→16:33)
--- NOTE | 2016-12-18 08:32 | CP.PCM.PN ---
Subjective - Date & Time of Evaluation Date of Evaluation: 12/18/16 Time of Evaluation: 08:26 - Subjective Subjective: Copious secretions have been suctioned over the last few days. Volume of secretions suctioned from the mouth has also increased. Remains neurologically unchanged. Oxygenation remains good, but frequent episodes of coughing result in marked tachypnea. Breath sounds are present bilaterally with sonorous rhonchi. No wheezing. Spoke with patient's family yesterday and I am in agreement with decision of DNR /DNI. Would trial holding G tube feedings presently. I feel he may be having regurgitation and possibly aspiration. Objective - Vital Signs/Intake and Output Vital Signs (last 24 hours): Temp Pulse Resp BP Pulse Ox 99.3 F 118 H 18 120/61 99 12/18/16 08:23 12/18/16 08:23 12/18/16 08:23 12/18/16 08:23 12/18/16 08:23 Intake and Output: 12/17/16 12/18/16 23:59 11:59 Output Total 400 Balance -400 - Medications Medications: Current Medications Albuterol Sulfate (Albuterol 0.083% Inhal Mary (2.5 Mg/3 Ml) Ud) 2.5 mg INH RQ4 PRN PRN Reason: Shortness of Breath Last Admin: 12/17/16 01:06 Dose: 2.5 mg Albuterol/Ipratropium (Duoneb 3 Mg/0.5 Mg (3 Ml) Ud) 3 ml INH RQ6 [facility] Last Admin: 12/18/16 07:43 Dose: 3 ml Amantadine HCl (Amantadine 100 Mg Cap) 100 mg PO BID [facility] Last Admin: 12/17/16 16:11 Dose: 100 mg Amiodarone HCl (Cordarone) 200 mg PO DAILY [facility] Last Admin: 12/17/16 08:23 Dose: 200 mg Dimethicone (Proshield Plus Skin Protectant) 1 applic TOP BID [facility] Last Admin: 12/17/16 19:13 Dose: 1 applic Metronidazole (Flagyl 500mg/100ml Ns) 100 mls @ 100 mls/hr IVPB Q8 [facility] Last Admin: 12/18/16 02:08 Dose: 100 mls/hr Gentamicin Sulfate/Sodium Chloride (Gentamicin 60mg/50ml Ns) 60 mg in 50 mls @ 50 mls/hr IVPB Q12 [facility] Last Admin: 12/16/16 08:41 Dose: 50 mls/hr Methylprednisolone 60 mg/ (Sodium Chloride) 50 mls @ 100 mls/hr IV Q12 [facility] Methylphenidate HCl (Ritalin) 10 mg PEG DAILY [facility] Last Admin: 12/17/16 12:21 Dose: 10 mg Metoprolol Tartrate (Lopressor) 25 mg PO Q12 [facility] Last Admin: 12/17/16 21:39 Dose: 25 mg Ondansetron HCl (Zofran Odt) 4 mg PEG Q8 [facility] Last Admin: 11/24/16 16:40 Dose: 4 mg Vancomycin HCl (Vancocin (Oral/Rectal Use)) 125 mg PO Q8 [facility] Last Admin: 12/18/16 02:12 Dose: 125 mg - Labs Labs: 12/15/16 08:30 12/15/16 08:30 PT 14.3 SECONDS (9.6-11.2) H 12/14/16 16:45 INR 1.38 (0.92-1.08) H 12/14/16 16:45 APTT 31.7 SECONDS (23.3-32.5) 12/14/16 16:45 Assessment and Plan (1) Respiratory failure with hypercapnia Status: Inactive (2) On mechanically assisted ventilation Status: Chronic (3) Pneumonia Status: Acute (4) COPD exacerbation Status: Inactive (5) Tracheostomy in place Status: Acute
[2016-12-18] MEDS: Proshield Plus GEL TOP SCH ×2 (08:58→16:33)
[2016-12-18] MEDS ORDERED: methylPREDNISolone 60 MG in Sodium Chloride 0.9% 50 ML IV SCH (09:00)
--- NOTE | 2016-12-18 11:44 | CP.PCM.PN ---
Subjective - Date & Time of Evaluation Date of Evaluation: 12/18/16 Time of Evaluation: 10:40 - Subjective Subjective: UNRESPONSIVE Objective - Vital Signs/Intake and Output Vital Signs (last 24 hours): Temp Pulse Resp BP Pulse Ox 99.3 F 118 H 18 120/61 99 12/18/16 10:00 12/18/16 10:00 12/18/16 10:00 12/18/16 10:00 12/18/16 10:00 Intake and Output: 12/18/16 12/18/16 06:59 18:59 Output Total 400 Balance -400 - Medications Medications: Current Medications Albuterol Sulfate (Albuterol 0.083% Inhal Mary (2.5 Mg/3 Ml) Ud) 2.5 mg INH RQ4 PRN PRN Reason: Shortness of Breath Last Admin: 12/17/16 01:06 Dose: 2.5 mg Albuterol/Ipratropium (Duoneb 3 Mg/0.5 Mg (3 Ml) Ud) 3 ml INH RQ6 [facility] Last Admin: 12/18/16 07:43 Dose: 3 ml Amantadine HCl (Amantadine 100 Mg Cap) 100 mg PO BID [facility] Last Admin: 12/18/16 08:39 Dose: 100 mg Amiodarone HCl (Cordarone) 200 mg PO DAILY [facility] Last Admin: 12/18/16 08:39 Dose: 200 mg Dimethicone (Proshield Plus Skin Protectant) 1 applic TOP BID [facility] Last Admin: 12/18/16 08:58 Dose: 1 applic Metronidazole (Flagyl 500mg/100ml Ns) 100 mls @ 100 mls/hr IVPB Q8 [facility] Last Admin: 12/18/16 08:38 Dose: 100 mls/hr Gentamicin Sulfate/Sodium Chloride (Gentamicin 60mg/50ml Ns) 60 mg in 50 mls @ 50 mls/hr IVPB Q12 [facility] Last Admin: 12/16/16 08:41 Dose: 50 mls/hr Methylprednisolone 60 mg/ (Sodium Chloride) 50 mls @ 100 mls/hr IV Q12 [facility] Last Admin: 12/18/16 10:00 Dose: 100 mls/hr Methylphenidate HCl (Ritalin) 10 mg PEG DAILY [facility] Last Admin: 12/18/16 10:00 Dose: 10 mg Metoprolol Tartrate (Lopressor) 25 mg PO Q12 [facility] Last Admin: 12/18/16 08:41 Dose: 25 mg Ondansetron HCl (Zofran Odt) 4 mg PEG Q8 [facility] Last Admin: 11/24/16 16:40 Dose: 4 mg Vancomycin HCl (Vancocin (Oral/Rectal Use)) 125 mg PO Q8 [facility] Last Admin: 12/18/16 08:42 Dose: 125 mg - Labs Labs: 12/15/16 08:30 12/15/16 08:30 PT 14.3 SECONDS (9.6-11.2) H 12/14/16 16:45 INR 1.38 (0.92-1.08) H 12/14/16 16:45 APTT 31.7 SECONDS (23.3-32.5) 12/14/16 16:45 - Respiratory Exam Respiratory Exam: Rhonchi - Cardiovascular Exam Cardiovascular Exam: Irregular Rhythm, +S1, +S2 - Additional Findings 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
[2016-12-18 12:34] VITALS: O2SAT 100
[2016-12-18 16:38] VITALS: BP 127/86; PULSE 100; RESP 22; TEMP 97.6
--- NOTE | 2016-12-18 20:50 | PN ---
DATE: 12/18/2016 ROOM: 415. SUBJECTIVE: This is a 71-year-old male with recent acute respiratory failure and has since then been extubated, currently on a tracheostomy collar and is being followed closely for metabolic management . His glycemic levels are near optimal at this time, ranging from 105-145 mg/dL. The latest polymer chemist ry showed a BUN of 38, sodium 136, potassium 4.0, chloride 107, CO2 21, glucose 121, and creatinine 1 .4. So, at this time, we will continue current present medical management as ordered. No indication for any kind of basal insulin therapy at this time. We will follow. Anabella Sebastian MD cc: [phone] TT: 12/18/2016 20:49:50 Confirmation # [id number] Dictation # [id number]
--- NOTE | 2016-12-18 23:54 | CP.PCM.PN ---
Subjective - Date & Time of Evaluation Date of Evaluation: 12/18/16 Time of Evaluation: 22:22 - Subjective Subjective: Above noted D/W family and hospice care Nurse Objective - Vital Signs/Intake and Output Vital Signs (last 24 hours): Temp Pulse Resp BP Pulse Ox 97.6 F 100 H 22 127/86 100 12/18/16 16:00 12/18/16 16:00 12/18/16 16:00 12/18/16 16:00 12/18/16 16:00 Intake and Output: 12/18/16 12/19/16 18:59 06:59 Intake Total 300 Output Total 350 Balance -50 - Labs Labs: 12/15/16 08:30 12/15/16 08:30 PT 14.3 SECONDS (9.6-11.2) H 12/14/16 16:45 INR 1.38 (0.92-1.08) H 12/14/16 16:45 APTT 31.7 SECONDS (23.3-32.5) 12/14/16 16:45 - Respiratory Exam Respiratory Exam: NORMAL BREATHING PATTERN - Cardiovascular Exam Cardiovascular Exam: REGULAR RHYTHM - GI/Abdominal Exam GI & Abdominal Exam: Normal Bowel Sounds Assessment and Plan - Assessment and Plan (Free Text) Assessment: Transfer to Hospice Care Family aware G tube feedings d/c DNR DNI S/P Acute Respiratory Failure Asystole Tracheostomy Aspiration?? HX COPD Klebsiella Pneumonia MDR Pulmonary ID Anoxic encephalopathy 2 to above Methyphenidate and amantidine Neuro note appreciated S/P Asystole 2 to Pulmonary dx (S/P V-fib/ V-tach 2 to pulmonary dx) A-fib CAD S/P CABG Amiodorone Cardiology SMITA/ CKD 2 to Sepsis acute ischemia ATN Improving Nephrology Anemia etiol? Chronic dx CKD + guaic Transfusion
== END 2016-12-18 17:50 | disposition hospice, inpatient (51) | DRG 4 ==
LOC: H.ER 07:24 → H.ERHOLD 09:20 → H.TEL 11:03 → H.ICU/CCU 11-24 05:34 → H.TEL 12-12 18:13
PROVIDERS: ADMIT Family Medicine Geriatric Medicine; ATTEND Family Medicine Geriatric Medicine
PROC: 3E0F73Z Introduction of Anti-inflammatory into Respiratory Tract, Via Natural or Artificial Opening (ICD-10-PCS; 2016-11-22)
PROC: 5A1955Z Respiratory Ventilation, Greater than 96 Consecutive Hours (ICD-10-PCS; 2016-11-24)
PROC: 0BH17EZ Insertion of Endotracheal Airway into Trachea, Via Natural or Artificial Opening (ICD-10-PCS; 2016-11-24)
PROC: 05HM33Z Insertion of Infusion Device into Right Internal Jugular Vein, Percutaneous Approach (ICD-10-PCS; 2016-11-24)
PROC: B543ZZA Ultrasonography of Right Jugular Veins, Guidance (ICD-10-PCS; 2016-11-24)
PROC: 3E03329 Introduction of Other Anti-infective into Peripheral Vein, Percutaneous Approach (ICD-10-PCS; 2016-11-24)
PROC: 5A12012 Performance of Cardiac Output, Single, Manual (ICD-10-PCS; 2016-11-24)
PROC: 3E0G76Z Introduction of Nutritional Substance into Upper GI, Via Natural or Artificial Opening (ICD-10-PCS; 2016-11-24)
PROC: 30233N1 Transfusion of Nonautologous Red Blood Cells into Peripheral Vein, Percutaneous Approach (ICD-10-PCS; 2016-11-26)
PROC: 0BJ08ZZ Inspection of Tracheobronchial Tree, Via Natural or Artificial Opening Endoscopic (ICD-10-PCS; 2016-12-09)
PROC: 0B113F4 Bypass Trachea to Cutaneous with Tracheostomy Device, Percutaneous Approach (ICD-10-PCS; principal; 2016-12-09 09:45)
DX: J44.0 Chronic obstructive pulmonary disease with (acute) lower respiratory infection (principal); J69.0 Pneumonitis due to inhalation of food and vomit; J96.02 Acute respiratory failure with hypercapnia; A41.9 Sepsis, unspecified organism; N17.0 Acute kidney failure with tubular necrosis; R65.20 Severe sepsis without septic shock; G93.1 Anoxic brain damage, not elsewhere classified; R40.20 Unspecified coma; J15.0 Pneumonia due to Klebsiella pneumoniae; I46.9 Cardiac arrest, cause unspecified; I47.2 Ventricular tachycardia; I42.0 Dilated cardiomyopathy; E87.3 Alkalosis; Z99.11 Dependence on respirator [ventilator] status; I13.0 Hypertensive heart and chronic kidney disease with heart failure and stage 1 through stage 4 chronic kidney disease, or unspecified chronic kidney disease; I50.42 Chronic combined systolic (congestive) and diastolic (congestive) heart failure; I48.2 Chronic atrial fibrillation; D63.1 Anemia in chronic kidney disease; J44.1 Chronic obstructive pulmonary disease with (acute) exacerbation; J45.909 Unspecified asthma, uncomplicated; N40.0 Benign prostatic hyperplasia without lower urinary tract symptoms; I25.10 Atherosclerotic heart disease of native coronary artery without angina pectoris; E86.0 Dehydration; E87.6 Hypokalemia; N18.3 Chronic kidney disease, stage 3 (moderate); E11.22 Type 2 diabetes mellitus with diabetic chronic kidney disease; E07.81 Sick-euthyroid syndrome; E03.9 Hypothyroidism, unspecified; E78.5 Hyperlipidemia, unspecified; E78.00 Pure hypercholesterolemia, unspecified; G89.29 Other chronic pain; M19.90 Unspecified osteoarthritis, unspecified site; I73.9 Peripheral vascular disease, unspecified; Z51.5 Encounter for palliative care; Z66 Do not resuscitate; I25.2 Old myocardial infarction; Z95.1 Presence of aortocoronary bypass graft; Z95.5 Presence of coronary angioplasty implant and graft; Z93.1 Gastrostomy status; Z79.4 Long term (current) use of insulin; Z87.891 Personal history of nicotine dependence; Z87.01 Personal history of pneumonia (recurrent); Z88.6 Allergy status to analgesic agent

== ENCOUNTER 2016-12-18 16:40 | Inpatient (IN) | payer OTHER ==
[2016-12-18 17:56] VITALS: BMI 20.5
[2016-12-18] MEDS ORDERED: HYDROmorphone 0.5 mg/0.5 ml ISec IVP PRN (18:13)
[2016-12-18] MEDS ORDERED: Scopolamine 1.5 mg/24 hr Patch TD SCH (18:45)
[2016-12-18 20:12] VITALS: O2SAT 100
[2016-12-18] MEDS: HYDROmorphone 0.5 mg/0.5 ml ISec IVP SCH (22:01)
[2016-12-19] MEDS: HYDROmorphone 0.5 mg/0.5 ml ISec IVP SCH ×3 (01:11→10:09)
[2016-12-19] MEDS: diaZEpam 10 mg/2 ml Inj IVP SCH ×2 (10:57→19:01)
[2016-12-19] MEDS ORDERED: HYDROmorphone 0.5 mg/0.5 ml ISec IVP STA (11:29)
[2016-12-19] MEDS ORDERED: HYDROmorphone 0.5 mg/0.5 ml ISec IVP SCH ×2 (14:00)
--- NOTE | 2016-12-19 14:55 | CP.PCM.PCO ---
Assessment/Plan - Assessment/Plan Assessment (Free Text): Pt examined this morning, now under [facility]/end of life care. Rounded with William from [facility]. Patient with eyes closed, obtunded Pt tachycardic SR110, tachypneic RR30 Extremities swollen , oxygen via trach collar, saturation 100%. Medications titrated as per his recommendations. Valium iv ordered, dilaudid 0.5mg iv continuous ordered. Requiring continuous suction. Discussed with RN , cont to monitor closely. Comfort measures kept.
--- NOTE | 2016-12-19 19:39 | CP.PCM.HP ---
History of Present Illness - History of Present Illness History of Present Illness: 71 yo admitted to Hospice. Pt is s/p acute respiratory arrest with anoxic encephalopathy Present on Admission - Present on Admission Any Indicators Present on Admission: No Past Patient History - Infectious Disease Hx of Infectious Diseases: None - Tetanus Immunizations Tetanus Immunization: Unknown - Past Medical History & Family History Past Medical History?: Yes - Past Social History Smoking Status: Never Smoked - CARDIAC Hx Atrial Fibrillation: Yes Hx Cardia Arrhythmia: Yes Hx Congestive Heart Failure: Yes Hx Hypercholesterolemia: Yes Hx Hypertension: Yes Hx Peripheral Edema: Yes - PULMONARY Hx Asthma: Yes Hx Bronchitis: Yes Hx Chronic Obstructive Pulmonary Disease (COPD): Yes Hx Emphysema: Yes Hx Pneumonia: Yes - NEUROLOGICAL Hx Neurological Disorder: No - HEENT Hx Cataracts: Yes (right eye) - RENAL Hx Chronic Kidney Disease: No - ENDOCRINE/METABOLIC Hx Hypothyroidism: No - HEMATOLOGICAL/ONCOLOGICAL Hx Anemia: Yes Hx Human Immunodeficiency Virus (HIV): No - INTEGUMENTARY Hx Psoriasis: Yes - MUSCULOSKELETAL/RHEUMATOLOGICAL Hx Arthritis: Yes Hx Falls: No Hx Rheumatoid Arthritis: No - GASTROINTESTINAL Hx Diverticulitis: Yes - GENITOURINARY/GYNECOLOGICAL Hx Prostate Problems: Yes (BPH) - PSYCHIATRIC Hx Anxiety: Yes - SURGICAL HISTORY Hx Coronary Artery Bypass Graft: Yes (1994) Hx Coronary Stent: Yes (2000) - ANESTHESIA Hx Anesthesia: Yes Hx Anesthesia Reactions: No Hx Malignant Hyperthermia: No Meds Allergies/Adverse Reactions: Allergies Allergy/AdvReac Type Severity Reaction Status Date / Time gemfibrozil [From Lopid] Allergy RASH Verified 11/22/16 07:55 morphine Allergy SHORTNESS Verified 11/22/16 07:55 OF BREATH Physical Exam - Respiratory Exam Respiratory Exam: NORMAL BREATHING PATTERN - Cardiovascular Exam Cardiovascular Exam: REGULAR RHYTHM - GI/Abdominal Exam GI & Abdominal Exam: Normal Bowel Sounds Results - Vital Signs Recent Vital Signs: Last Vital Signs Temp 97.5 F L 12/19/16 16:00 Pulse 87 12/19/16 16:00 Resp 22 12/19/16 16:00 BP 102/62 12/19/16 16:00 Pulse Ox 100 12/19/16 16:00 - Labs Labs: Laboratory Results - last 24 hr 12/18/16 22:38 POC Glucose (mg/dL) 104 Assessment & Plan - Assessment and Plan (Free Text) Assessment: s/p acute respiratory arrest with anoxic encephalopathy Hospice care DNR DNI Comfort measures - Date & Time Date: 12/19/16 Time: 22:22
[2016-12-20] MEDS: diaZEpam 10 mg/2 ml Inj IVP SCH ×2 (01:02→08:52)
[2016-12-20 08:17] VITALS: BP 110/71; PULSE 90; RESP 18; TEMP 97.6
--- NOTE | 2016-12-20 09:59 | CP.PCM.PRO ---
Pronouncement of Note - Clinical Findings Physical Exam: No Response Verbal/Painful Stimuli, Absent Peripheral Pulses{ Carotid & Femoral}, Absent Heart & Breath Sounds, No Pupillary Light Reflex, Pupils Fixed & Dilated, Absence of Vital Signs - Pronouncement Time Time of Pronouncement of : 09:36 Additional Comments: Patient was pronounced at 9:36 AM 12/20/16 - Notifications Pronouncement Notifications: Family Notified, Atending Notified (Notified by Nurse Warren) Supervisor [employer] Notified: No - Autopsy Autopsy Requested: No - [place]: [id number] Additional Comments: Certificate printed and placed in front of patient chart
--- NOTE | 2016-12-20 20:08 | CP.PCM.PN ---
Subjective - Date & Time of Evaluation Date of Evaluation: 12/20/16 Time of Evaluation: 22:22 - Subjective Subjective: Above noted PT developed Bradycardia and the Asystole Pt pronounced D/W family and aware Objective - Vital Signs/Intake and Output Vital Signs (last 24 hours): Temp Pulse Resp BP Pulse Ox 97.6 F 90 18 110/71 100 12/20/16 08:16 12/20/16 09:00 12/20/16 08:16 12/20/16 08:16 12/20/16 08:16 Intake and Output: 12/20/16 12/21/16 18:59 06:59 Intake Total 20 Output Total 50 Balance -30
== END 2016-12-20 11:36 | DRG 93 ==
LOC: H.TEL 18:03
PROVIDERS: ADMIT Family Medicine Geriatric Medicine; ATTEND Family Medicine Geriatric Medicine
DX: G93.1 Anoxic brain damage, not elsewhere classified (principal); R09.2 Respiratory arrest; R00.1 Bradycardia, unspecified; I46.9 Cardiac arrest, cause unspecified; Z51.5 Encounter for palliative care; Z66 Do not resuscitate; Z95.1 Presence of aortocoronary bypass graft; Z95.5 Presence of coronary angioplasty implant and graft; R00.0 Tachycardia, unspecified; R06.82 Tachypnea, not elsewhere classified